=== PATIENT | female | born 1980 | race Caucasian/White ===

== ENCOUNTER 2019-07-07 07:02 | Emergency (ER) | payer MEDICAID, SELFPAY ==
[2019-07-07] VITALS (13 sets, daily range): BP systolic 78–108; BP diastolic 58–78; PULSE 89–123; RESP 16–36; TEMP 37–38.7; O2SAT 88–100; BMI 23.1
--- NOTE | 2019-07-07 07:17 | RAD_ITS ---
STUDY: X-RAY CHEST REASON FOR EXAM: Female, 38 years old. Cough. Weakness. TECHNIQUE: Single AP portable view of the chest. COMPARISON: None. FINDINGS: A right sided internal jugular venous catheter is in place with the tip in the right atrium. EKG electrodes are seen. The lungs are clear and expanded. There is no demonstrated pleural abnormality. Normal size heart. Normal mediastinum and rufino. Normal visualized pulmonary arteries. Normal visualized aortic arch and descending thoracic aorta. Normal visualized thoracic spine. Normal visualized ribs, clavicles, and shoulders. There is no demonstrated abnormality of the visualized soft tissue structures of the upper abdomen. RAD/Chest 1 View (Portable) IMPRESSION: Normal x-ray examination of the chest. Electronically Signed: Ashish Villatoro, at 9:13 EDT , Service support ,
--- NOTE | 2019-07-07 07:18 | EKG12_ITS ---
Test Reason : Blood Pressure : / mmHG Vent. Rate : 124 BPM Atrial Rate : 124 BPM P-R Int : 124 ms QRS Dur : 104 ms QT Int : 314 ms P-R-T Axes : 066 111 057 degrees QTc Int : 451 ms Sinus tachycardia Right axis deviation Poor R- wave Progression Abnormal ECG Confirmed by LUIS ANGEL RAMOS, TAMMY ([id number]), graphics editor MORGAN CASTAÑEDA ([id number]) on 07/09/2019 2:17:51 PM Referred By: PANDA Confirmed By:TAMMY PLASENCIA MD
--- NOTE | 2019-07-07 07:19 | CT_ITS ---
STUDY: CTA OF THE ABDOMINAL AORTA AND BILATERAL LOWER EXTREMITIES REASON FOR EXAM: Female, 38 years old. Leg numbness RADIATION DOSAGE (If Supplied By Facility): CTDIvol = ( 7.16 ) mGy, DLP = ( 1342.79 ) mGycm TECHNIQUE: Axial CT angiography multi-detector data acquisition was obtained from the to the following intravenous administration of 100CC IV Isovue 370. Axial images and MIP images were reconstructed from the axial data set. Post-processing of the angiographic images was performed, with multiplanar reformation and 3D reconstruction. Individualized dose optimization techniques were used for this CT. TECHNICAL QUALITY: Good COMPARISON: None. Descriptors of Narrowing: None (0%) Mild (< 50%) Moderate (50-70%) Severe (70-90%) Subtotal/Total Occlusion (90-100%) Non-Evaluable (technically non-diagnostic FINDINGS: Abdominal aorta: No demonstrated narrowing. Celiac and superior mesenteric arteries: No demonstrated narrowing. Inferior mesenteric artery: No demonstrated narrowing. Right renal artery(arteries): No demonstrated narrowing. Left renal artery(arteries): No demonstrated narrowing. Right common iliac artery: No demonstrated narrowing. Right external iliac artery: No demonstrated narrowing. Right internal iliac artery: No demonstrated narrowing. Left common iliac artery: No demonstrated narrowing. Left external iliac artery: No demonstrated narrowing. Left internal iliac artery: No demonstrated narrowing. RIGHT LOWER EXTREMITY Right common femoral artery: No demonstrated narrowing. Right profundus femoris: No demonstrated narrowing. Right superficial femoral: No demonstrated narrowing. Right popliteal artery: No demonstrated narrowing. Right tibioperoneal trunk: No demonstrated narrowing. Right anterior tibial artery: No demonstrated narrowing. Right posterior tibial artery: No demonstrated narrowing. Right peroneal artery: No demonstrated narrowing. LEFT LOWER EXTREMITY Left common femoral artery: No demonstrated narrowing. Left profundus femoris: No demonstrated narrowing. Left superficial femoral: No demonstrated narrowing. Left popliteal artery: No demonstrated narrowing. Left tibioperoneal trunk: No demonstrated narrowing. Left anterior tibial artery: No demonstrated narrowing. Left posterior tibial artery: No demonstrated narrowing. Left peroneal artery: No demonstrated narrowing. CT/CTA Abd w/Runoff W/WO Contrast IMPRESSION: Normal abdominal aorta and bilateral lower extremity run-off without a hemodynamically significant stenosis. Electronically Signed: Renaldo Abrams MD at 10:10 EDT Tel , Service support ,
[2019-07-07] MEDS: 0.9% Normal Saline 1,000 ML 1000 ML IV ×2 (08:20→09:21)
[2019-07-07 08:41] LABS: Absolute Lymphocyte Count 0.89 X10^3/uL (0.83-4.51); Absolute Neutrophil Count 18.2 X10^3/uL (2.0-7.7); Basophil# 0.07 X10^3/uL; Basophil% 0.3 % (0-1); Eosinophil# 0.05 X10^3/uL; Eosinophils% 0.2 % (0-5); Hematocrit 45.3 % (37-47); Hemoglobin 14.8 g/dL (12.0-15.0); Lymphocyte # 0.89 X10^3/ul (4.0); Lymphocyte % 4.3 % (19-41); Mean Corp Hgb Conc 32.7 g/dL (32-36); Mean Corpuscular Hgb 27.7 pg (27.0-32.0); Mean Corpuscular Volume 84.8 fL (81-99); Mean Platelet Vol. 10.1 fl (6.2-12.0); Monocyte# 1.56 X10^3/uL; Monocyte% 7.5 % (0-10); NRBC Flagged by Analyzer 0 % (0-5); Neutrophil # 18.18 X10^3/uL (2.7-7.7); Neutrophil % 86.8 % (47-70); POSITIVE DIFFERENTIAL YES; POSITIVE MORPHOLOGY YES; Platelet Count 244 K/mm3 (150-450); RBC Distribution Width CV 12.7 % (11.6-14.6); RBC Distribution Width SD 39.4 fl (35.1-43.9); Red Blood Count 5.34 M/mm3 (4.2-5.4); White Blood Count 20.9 K/mm3 (4.4-11.0)
--- NOTE | 2019-07-07 09:00 | ED.DCSUM_ITS ---
- ER Visit Summary Date of Service: 07/07/19 Chief Complaint: I cannot feel my legs History of Present Illness: The patient is a 38 F who states that she cannot feel her legs. This is been ongoing for 3 days. She also says that she feels like she has electrical currents going throughout her body. She also complains of whole body pain. She denies nausea or vomiting. Denies any fevers at home. 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 She says that she has laid around and has not moved in 3 days and has not urinated in 3 days. She is a history of kidney stones but no other medical problems. Physical Examination: Vital signs are reviewed and significant for heart rate of 128. HEENT exam reveals dry mucous membranes. Heart is tachycardic and regular rhythm without murmurs. Lungs have rhonchorous breath sounds bilaterally. Her abdomen is soft and nontender. Looking at her back she does have some pressure areas on her back. There are no open areas but there is some erythematous areas from where she has had some constant pressure. Her lower extremities have slightly unequal DP pulses in the feet. The left is palpable but the right was dopplerable. She has no rashes on her skin. She is alert and oriented x3 and answers all questions. She has diffuse overall weakness. She states that she cannot move her left or right leg. She has no muscular tenderness when you palpate her thighs or calves areas. There is no swelling of her lower extremities. Test Results: EKG is sinus tachycardia with a rate of 124. Nonspecific ST and T wave changes are noted, likely to chest x-ray reveals no acute on normalities. The right IJ central line is in correct position. White blood cell count 20.9, sodium 133, creatinine 1.38. AST and ALT are elevated at 290 and 138. Urinalysis does have a UTI with 25-50 white blood cells. Troponin and lactate normal. CK is 12,684. Alcohol level negative. Toxicology shows amphetamines and cannabis. ABG shows a pH of 7.40/26/91/16. CT abdomen with runoffs shows no critical stenosis. Emergency Department Course and Treatment: The patient is likely dehydrated, and peripheral IV access was unable to be obtained. Therefore the patient consented to a right IJ central line. Using sterile technique, ultrasound guidance and Seldinger technique a right IJ triple-lumen was placed by myself. Patient was hydrated with multiple liters of fluid. Given fentanyl for pain. She does have sepsis with a urinary tract infection. We be put the Charles catheter in over 1800 cc of urine returned. At this point the patient has rhabdomyolysis with a UTI and sepsis. With the lower extremity weakness and urinary retention, there is concern for a possible spinal etiology, i.e. spinal epidural abscess. I ordered MRI with contrast of the thoracic and lumbar spine. I discussed with hospitalist that the patient will definitely need to be admitted to the hospital. He agreed that MRIs are definitely warranted. We will pain these and patient will be admitted to the hospital Treatment Plan: [] Disposition: Admit Impression: Acute kidney injury Dehydration Rhabdomyolysis Sepsis UTI Lower extremity weakness with urinary retention, concern for spinal etiology Critical care time 60 minutes This note was generated with [employer] dictation software. It may contain incorrect words, spelling, and punctuation that were not noted in review of the chart prior to signing ED Disposition - Plan for ED Patient: Referrals: Care Physician,No Primary [Primary Care Provider] -
[2019-07-07 09:04] LABS: AST(SGOT) 298 U/L (15-37); Alanine Aminotransfer ALT/SGPT 138 U/L (13-56); Albumin, Serum 2.7 g/dL (3.2-5.0); Alkaline Phosphatase 158 U/L (45-117); Anion Gap 15 (5-15); BUN 38 mg/dL (7-18); BUN/Creat Ratio 27.5 RATIO (10-20); Bilirubin, Direct 0.34 mg/dL (0.00-0.30); Calcium,Total 8.3 mg/dL (8.5-10.1); Chloride 97 mmol/L (98-107); Creatinine, Serum 1.38 mg/dL (0.55-1.02); EST Glomerular Filtration Rate 46 mL/min (>60); Est Glom Filt Rate - Afr Amer 55 mL/min (>60); Estimated Creatinine Clearance 68.46 ml/min; Globulin 5.1 g/dL (2.2-4.2); Glucose 116 mg/dL (74-106); Lipase 69 U/L (73-393); Potassium 4.4 mmol/L (3.5-5.1); Protein, Total 7.8 g/dL (6.4-8.2); Sodium Level 133 mmol/L (136-145)
[2019-07-07 09:08] LABS: Lactic Acid 1.3 mmol/L (0.4-2.0)
[2019-07-07] MEDS: Ipratropium/Albuterol Sulfate 3 ML AMPUL.NEB INHALATION (09:18)
[2019-07-07 09:19] LABS: Differential Indicated SCAN CRITERIA MET
[2019-07-07 09:20] LABS: Differential Comment SCANNED
[2019-07-07 09:21] LABS: Internal QC Validated? YES +Cl - CLEAR BKGD; Pregnancy, Serum, hCG Quali. NEGATIVE Negative
[2019-07-07 09:22] LABS: CPK Total, Creatine Kinase 12684 U/L (26-192)
[2019-07-07 09:23] LABS: Alcohol, Blood (Medical)-Serum < 3.0 mg/dL
[2019-07-07 10:15] LABS: Base Excess -8 mmol/L (-2 to +2); Bicarbonate 16.7 mmol/L (22-26); Blood Gas Specimen Type ART; O2 Delivery Device Nasal Can; PO2 91 mmHG (75-100); SITE L Brachial; SO2 97 % (95-99); Time Given 1000; Total Carbon Dioxide 18 mmol/L; pCO2 26.6 mmHg (35-45); pH 7.41 (7.35-7.45)
[2019-07-07 11:29] LABS: Mucous, Urine 0 SEEN /hpf (<or=2+); Squamous Epithelial Cells - UA 0 SEEN /hpf (5-10)
[2019-07-07 11:34] LABS: Color, Urine Yellow (Yellow); Glucose, Dipstick Normal (Normal); Ketone-Dipstick Negative (Negative); Leukocyte Esterase-Dipstick 500 /ul (Negative); Nitrite-Dipstick Negative (Negative); Occult Blood-Urine 250 /ul (Negative); Protein-Dipstick 100 mg/dl (Negative); Specific Gravity, Urine 1.015 (1.002-1.030); Urine Bilirubin Dipstick Negative (Negative); Urine Clarity Cloudy (Clear); Urine Urobilinogen Normal (Normal); Urine pH 6.5 (5.0 - 8.0)
[2019-07-07 11:40] LABS: Bacteria 2+ /hpf (None Seen); Red Blood Cells-Urine 25-50 SEEN /hpf (0-5); White Blood Cells 25-50 SEEN /hpf (0-5)
[2019-07-07 11:47] LABS: Amphetamine Urine VISTA POSITIVE (<1000 ng/mL); Barbiturate Urine VISTA NEGATIVE (< 200 ng/mL); Benzodiazepine Urine VISTA NEGATIVE (< 200 ng/mL); Cocaine Urine VISTA NEGATIVE (< 300 ng/mL); Ecstacy Urine VISTA NEGATIVE (< 500 ng/mL); Methadone Urine VISTA NEGATIVE (< 300 ng/mL); PCP Urine VISTA NEGATIVE (< 25 ng/mL); THC Urine VISTA POSITIVE (< 50 ng/mL); Vista UDS pH Range 6
[2019-07-07] MEDS: fentaNYL 100 MCG/2 ML Ampul 50 MCG IV ×3 (11:56→20:57)
--- NOTE | 2019-07-07 12:04 | MRI_ITS ---
STUDY: MRI THORACIC SPINE WITH AND WITHOUT CONTRAST REASON FOR EXAM: Female, 38 years old. Abscess, unable to walk, intravenous drug user. TECHNIQUE: 15 IV Dotarem was administered for the contrast portion of the examination. COMPARISON: None. FINDINGS: Normal kyphosis of the thoracic spine. There is no substantial scoliosis. T1-2, T2-3, T3-4, T4-5, T5-6, T6-7, T7-8, T8-9, T9-10, T10-11, T11-12: At T6/T7 there is a small right paracentral disc protrusion which produces mild spinal stenosis with abutment of the right hemicord. At T7/T8 there is a tiny central disc protrusion which produces minimal spinal stenosis but no cord compression. At T8/T9 there is a small left paracentral disc protrusion which produces mild spinal stenosis with abutment of the spinal cord. At T9/T10 there is a small right paracentral disc protrusion which produces mild spinal stenosis with abutment of the right hemicord. At T10/T11 there is a small right paracentral disc protrusion which produces mild spinal stenosis with abutment of the right hemicord. Normal visualized thoracic cord. Normal conus medullaris that terminates at the . The soft tissue structures are unremarkable. There is no enhancing abnormality. MRI/Spine Thoracic W/WO Contrast IMPRESSION: Mild degenerative disc disease but no epidural abscess. Electronically Signed: Renaldo Abrams MD at 16:23 EDT Tel , Service support ,
--- NOTE | 2019-07-07 12:04 | MRI_ITS ---
STUDY: MRI LUMBAR SPINE WITH AND WITHOUT CONTRAST REASON FOR EXAM: Female, 38 years old. Leg weakness, abscess TECHNIQUE: Standardized fat and water weighted pulse sequences were obtained in the sagittal and axial planes. 15 IV Dotarem was administered for the contrast portion of the examination. COMPARISON: None FINDINGS: T12-L1: Normal endplates. Normal disc height, hydration and morphology. Normal bilateral facet joints. Normal central canal and bilateral lateral recesses. Normal bilateral intervertebral neural foramina. Normal lumbar lordosis. There is no substantial scoliosis. Normal conus medullaris that terminates at the L1. L1-2: Small central disc protrusion with annular tear produces minimal spinal stenosis and no neural foraminal stenosis. L2-3: Mild broad disc protrusion produces mild spinal stenosis but no neural foraminal stenosis. L3-4: Mild broad disc protrusion with a central annular tear produces mild spinal stenosis but no neural foraminal stenosis. L4-5: Mild bilateral facet hypertrophy with fluid in the facet joints consistent with instability mild ligament flavum hypertrophy. 2 mm retrolisthesis of L4 and L5 with a mild broad disc protrusion produces mild spinal stenosis with mild bilateral neural foraminal stenosis. L5-S1: Moderate sized central disc protrusion produces moderate spinal stenosis with moderate bilateral lateral recess stenosis with abutment of the S1 nerve roots bilaterally and moderate bilateral neural foraminal stenosis with abutment of the exiting L5 nerve roots bilaterally. Normal visualized sacral ala. Normal visualized paraspinous soft tissue structures. There is no demonstrated abnormal enhancement. MRI/Spine Lumbar W/WO Contrast IMPRESSION: Mild degenerative disc disease but no epidural abscess. Electronically Signed: Renaldo Abrams MD at 16:27 EDT Tel , Service support ,
--- NOTE | 2019-07-07 12:58 | CASEMGMT ---
RN CM Assessment Introduced role of RN CM to patient.? Patient is drowsy-falling asleep during the end of assessment questions, alert, oriented and able?to participate in RN CM Assessment. ?Care providers, pharmacy, and demographics verified. Presentation: Cannot feel her legs x3 days, Diffuse Body Pain Admit Dx: Rhabdomyolysis Re-Admit: No Barriers/Issues: Per ER MD note, Former Meth User, has not used x2yrs, Drug Tox this visit positive for Amphetamines and Cannabinoids. No Insurance or PCP. PCP: None, PCP list provided along with [facility] information. Specialists: None Preferred Pharmacy: [facility] [place], [place] Insurance: None Rx Benefit:?None ?LNOK: Mother- [facility] LW/HPOA: None, declines offered information Living Arrangements:?Lives alone in a 2 story home, bedroom on upper level of home, unsure of how many stairs. No steps to enter home. ADL?s: Independent with ambulation and ADLs Transportation: Patient states that she walks everywhere she goes. DME: None HHC: None SNF: None Goal: Home, denies any concerns, issues or questions with DC planning at this time. Aware CM remains available for any emerging needs. DC PLAN: Home. Cm to follow for emerging needs and more thorough assessment/needs. TADEO Manzano
[2019-07-07] MEDS: Ceftriaxone 1 GM/50 ML BAG IV (15:15)
[2019-07-07] MEDS: 0.9% Normal Saline 1,000 ML 999 ML IV (15:16)
--- NOTE | 2019-07-07 16:44 | PN_ITS ---
Subjective: 38-year-old female presented to the ER with 3 days of lower extremity paralysis. She states that it is bilateral. She has difficult to clarifying whether or not it slowly moved up or if it just presented 1 days total paralysis. She states that she was unable to move and has since developed some back pain and sores. She also states that today she started having bilateral upper extremity burning sensation. She denies any recent illnesses or sick contacts, though she did use a cold medicine on Sunday. She denies any recent IV drug use, she does have a history of meth use but she says she last used 2 years ago. Her drug screen did come back positive for amphetamines and marijuana. She had an MRI of her thoracic and lumbar spine both of which were negative for any epidural abscess and only showed mild degenerative disc disease. She presented to the ER she was found in rhabdo with CK greater than 12,000, as well as septic with a te mperature of 101.7 and a leukocytosis of 20,000. She was also tachycardic into the 110s to 120s and and had UA consistent with urinary tract infection. She was given 3 L of normal saline in the ER as well as given a dose of IV Rocephin. Vitals/I&O's: Vital Signs Temp Pulse Resp BP Pulse Ox 101.7 F H 117 H 24 H 79/58 L 95 07/07/19 15:25 07/07/19 15:25 07/07/19 15:25 07/07/19 15:25 07/07/19 15:25 Oxygen Flow Rate (L/min) 4 Oxygen Delivery Method Nasal Cannula Weight: 180 lb Body Mass Index (BMI) 23.1 Intake and Output for Last 24 Hours 07/05/19 07/06/19 07/07/19 23:59 23:59 23:59 Intake Total 1999 Balance 1999 General: Alert, Oriented x3, Cooperative, - - Significant burning pain in her right upper extremity HEENT: Atraumatic, PERRLA, EOMI, Normocephalic Oral: Dry Mucosa Neck: Supple, No JVD Lungs: Clear to auscultation, Normal air movement, No rhonchi, No wheeze, No rales Cardiovascular: Regular Rhythm, Normal S1, Normal S2, Tachycardic Abdomen: Soft, Non-Distended, No Hepato-splenomegaly, - - States she has no sensation in her abdomen or in her chest Extremities: No edema, Capillary Refill Less than 3 Seconds Skin: No rashes, No breakdown Neurological: - - She has come complete paralysis of her lower extremities, with no sensation and no patellar reflex bilaterally. Her upper extremity is 3-4 out of 5 in strength and she states that she has a burning sensation in both arms to the right appears to be worse than the left Psych/Mental Status: Anxious Laboratory Results 07/07/19 08:20: Lactic Acid 1.3 07/07/19 08:26: WBC 20.9 H, RBC 5.34, Hgb 14.8, Hct 45.3, MCV 84.8, MCH 27.7, MCHC 32.7, RDW Std Deviation 39.4, RDW Coeff of Domonique 12.7, Plt Count 244, MPV 10.1, Immature Gran % (Auto) 0.900, Neut % (Auto) 86.8 H, Lymph % (Auto) 4.3 L, Harvey % (Auto) 7.5, Eos % (Auto) 0.2, Baso % (Auto) 0.3, Absolute Neuts (auto) 18.2 H, Absolute Lymphs (auto) 0.89, Nucleated RBC % 0, Differential Comment SCANNED, Diff Path Review February07/07/19 08:26: Sodium 133 L, Potassium 4.4, Chloride 97 L, Carbon Dioxide 21.0, Anion Gap 15, BUN 38 H, Creatinine 1.38 H, Estim Creat Clear Calc 68.46, Est GFR (MDRD) Af Amer 55 L, Est GFR (MDRD) Non-Af 46 L, BUN/Creatinine Ratio 27.5 H, Glucose 116 H, Calcium 8.3 L, Total Bilirubin 0.80, Direct Bilirubin 0.34 H, AST 298 H, ALT 138 H, Alkaline Phosphatase 158 H, Troponin I < 0.015, Total Protein 7.8, Albumin 2.7 L, Globulin 5.1 H, Lipase 69 L 07/07/19 08:26: Ethyl Alcohol < 3.0 07/07/19 08:26: Serum , Qual NEGATIVE 07/07/19 08:26: Total Creatine Kinase 49951 H 07/07/19 10:09: Specimen Type ART, Sample Site L Brachial, pH 7.41, Bicarbonate Actual 16.7 L, POC Total CO2 18, Base Excess -8 L, O2 Saturation 97, ABG pCO2 26.6 L, ABG pO2 91, O2 Delivery Device Nasal Can, Liter Flow 5.0, Blood Gas Notified Whom ED MD, Blood Gas Notified Time 1000 07/07/19 11:20: Urine Color Yellow, Urine Clarity Cloudy, Urine pH 6.5, Ur Specific [place] 1.015, Urine Protein 100 H, Urine Glucose (UA) Normal, Urine Ketones Negative, Urine Occult Blood 250 H, Urine Nitrite Negative, Urine Bilirubin Negative, Urine Urobilinogen Normal, Ur Leukocyte Esterase 500 H, Urine RBC 25-50 SEEN, Urine WBC 25-50 SEEN, Ur Squamous Epith Cells 0 SEEN, Urine Bacteria 2+, Urine Mucus 0 SEEN 07/07/19 11:20: Urine Opiates Screen NEGATIVE, Urine Methadone Screen NEGATIVE, Ur Barbiturates Screen NEGATIVE, Ur Phencyclidine Scrn NEGATIVE, Ur Amphetamines Screen POSITIVE H, U Methamphetamin-MDMA NEGATIVE, U Benzodiazepines Scrn NEGATIVE, Urine Cocaine Screen NEGATIVE, U Cannabinoids Screen POSITIVE H, Ur Drug Screen Comment Medical Necessity - Tobacco Use Smoking Status: Current every day smoker Tobacco Use: Cigarettes Assessment/Plan 1. Possible ascending paralysis with bilateral upper extremity burning pain and loss of sensation in her legs abdomen and two thirds of her chest/urinary retention/low rectal tone -There is significant concern for possibly Guillain Ott? or transverse myelitis -Discussed the case with the ED physician who also performed a separate evaluation and felt that there is also areflexia and no mobility in the lower extremities. She agreed with transferring the patient to a higher level of care. -Also the ER did a CTA abdomen pelvis with runoff due to poor peripheral pulses initially, this is likely secondary to her episodic hypotension, and the distal vasculature in her legs bilaterally were patent 2. Sepsis secondary to UTI -Lactic acid was normal, she did receive 3 L of normal saline -She received a dose of Rocephin 3. Acute hypoxic respiratory failure -Likely secondary to the sepsis and possibly the paralysis -Continue with nasal cannula at 4 L for oxygen sats of 96% Code Visit Inpatient E&M: [id number] [facility] Hosp L3
--- NOTE | 2019-07-07 16:54 | MRI_ITS ---
STUDY: MRI CERVICAL SPINE WITHOUT CONTRAST REASON FOR EXAM: Female, 38 years old. Arm weakness and neck pain TECHNIQUE: Standardized fat and water weighted pulse sequences were obtained in the sagittal and axial planes. COMPARISON: None FINDINGS: Normal foramen magnum and brainstem-cervical cord junction. Normal craniovertebral junction. Normal anterior atlantoaxial articulation. Normal odontoid process. A round T2 hyperintense lesion is present in the pituitary gland measuring 7 mm. This could represent a microadenoma. Prevertebral edema is noted extending from the C3 level to the C6 level. A ventral epidural lesion/collection is noted extending from the C4-5 level to the T1-2 level. It is faintly T1 and T2 hyperintense. It is noted that recent post contrast MRIs were obtained and the perceived T1 hyperintensity could actually represent some mild residual enhancement. The lesion is associated with severe central canal stenosis at the C5-6 and C6-7 levels, with associated severe cord compression and distortion. It has a maximum anteroposterior measurement of 6 mm at the C6-7 level. Overall, findings are concerning for epidural abscess or hematoma. 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 Secondary changes of osteomyelitis are not visible on this limited noncontrast study. At C5-6, disc osteophyte complex is present with moderate to severe central canal stenosis and severe right foraminal stenosis, with mass effect on the right C5 nerve root. MRI/Spine Cervical (Routine) IMPRESSION: An indeterminate ventral epidural lesion is noted extending from the C4-5 level to the T1-2 level. Differential includes both epidural abscess and epidural hematoma. This lesion is associated with severe central canal stenosis at C5-6 and C6-7. At those levels, there is significant cord compression. 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 Overall, neurosurgery consultation should be obtained at this time. A round T2 hyperintense lesion is present in the pituitary gland measuring 7 mm. This could represent a microadenoma. I discussed these critical results with Dr. Rodriguez by telephone at 7:05 PM EST on 07/07/2019. N.B. : The above information has been verbally conveyed by Sly Goldberg MD to Dr. Jennifer MD, on 07/07/2019 19:07:26 (ET). Electronically Signed: Sly Goldberg MD at 19:08 EDT Tel , Service support ,
--- NOTE | 2019-07-07 20:09 | ED.RN ---
DR WHYTE - NEUROSURGEON, NEURO ICU [id number], NUMBER FOR REPORT [phone]
--- NOTE | 2019-07-08 06:23 | ED.RN ---
PRELIMINARY BLOOD CULTURE RESULTS FAXED TO [facility] ICU
[2019-07-08 13:04] LABS: Pathologist Review Reviewed
== END 2019-07-07 21:09 | disposition short-term general hospital (02) ==
PROVIDERS: Emergency Provider Emergency Medicine; Referring Provider Family Medicine
DX: N17.9 Acute kidney failure, unspecified (principal); E86.0 Dehydration; M62.82 Rhabdomyolysis; A41.9 Sepsis, unspecified organism; N39.0 Urinary tract infection, site not specified; R29.898 Other symptoms and signs involving the musculoskeletal system; R33.9 Retention of urine, unspecified; G95.89 Other specified diseases of spinal cord; M48.02 Spinal stenosis, cervical region; M51.36 Other intervertebral disc degeneration, lumbar region; M51.34 Other intervertebral disc degeneration, thoracic region; Z87.442 Personal history of urinary calculi; F17.210 Nicotine dependence, cigarettes, uncomplicated
CPT/HCPCS: 36600; 51702; 71045; 72141; 72157; 72158; 75635; 80048; 80076; 80307; 80320; 81001; 82550; 82803; 83605; 83690; 84484; 84703; 85025; 87040; 87149; 87186; 93005; 94640; 96361; 96365; 96367; 96368; 96374; 96376; 99285; A9575; J7030; J7040; Q9967; A4216; G0480

== ENCOUNTER 2019-10-19 02:29 | Emergency (ER) | payer MEDICAID, SELFPAY ==
[2019-07-07 07:03] VITALS: BMI 23.1
[2019-10-19 02:31] VITALS: BP 132/88; PULSE 94; RESP 18; TEMP 37.4; O2SAT 99; BMI 26.7
[2019-10-19 02:34] VITALS: BP 132/88; PULSE 92; RESP 18; TEMP 37.4; O2SAT 99
--- NOTE | 2019-10-19 03:00 | ED.VIS.GEN ---
History of Present Illness Chief Complaint: Complaint Narrative: Patient is a 39-year-old female who presents with hematuria. She has a history of epidural abscess and paraplegia. She has an indwelling Charles catheter. About 24 hours ago she noted blood in her Charles bag. She has changed her Charles about 4 times since then and continues to have grossly bloody urine. She reports chills and sweats but no fevers. No vomiting. Past Medical History - Allergies and Home Meds Allergies/Adverse Reactions: Allergies No Known Allergies Allergy (Verified 10/19/19 02:30) Primary Care Physician: Qamar Zimmer MD [Primary Care Provider] - Past Medical History: - - History of epidural abscess, paraplegia Surgical History: cholecystectomy, , left ankle surgery secondary to trauma Smoking Status: Current every day smoker Review of Systems All systems negative except as indicated General: Reports: Chills, Sweats. Denies: Fever Cardiovascular: Denies: Chest pain Respiratory: Denies: Dyspnea Gastrointestinal: Denies: Vomiting, Diarrhea Genitourinary: Reports: Hematuria Skin: Denies: Rash Neurological: Denies: Headache Allergy: Denies: Uticaria Physical Exam Vital Signs/Narrative: Vital Signs Temp Pulse Resp BP Pulse Ox 10/19/19 02:34 99.3 F H 92 18 132/88 H 99 10/19/19 02:31 99.3 F H 94 18 132/88 H 99 Inital Vital Signs reviewed: Yes General: Well nourished Head: Normocephalic Eyes: EOMI ENT: Moist mucous membranes Neck: Supple Cardiovascular: Regular rate, Regular rhythm Respiratory: No distress, CTA bilaterally Abdomen: Soft, Nondistended : - - Normal exam, no vaginal bleeding Skin: Normal color Neurological: Alert, - - Paraplegia Psychological: Normal affect Diagnostic/Tx/Re-eval - Medical Decision Making Patient serum laboratory studies are unremarkable. Urinalysis shows blood as well as mild pyuria not clearly consistent with cystitis, we will culture urine. Her Charles was irrigated and did clear. Therefore I do feel she is safe for discharge. We will refer to urology for outpatient follow-up and patient was discharged. ED Disposition - Plan for ED Patient: Disposition: Home or Assisted Living Diagnosis: Hematuria Instructions: Hematuria Referrals: Qamar Zimmer MD [Primary Care Provider] - Mal Méndez MD [STAFF PHYSICIAN] -
[2019-10-19 03:47] LABS: Mucous, Urine 0 SEEN /hpf (<or=2+); Squamous Epithelial Cells - UA 0 SEEN /hpf (5-10)
[2019-10-19 03:52] LABS: Absolute Lymphocyte Count 2.23 X10^3/uL (0.83-4.51); Absolute Neutrophil Count 4.8 X10^3/uL (2.0-7.7); Basophil# 0.04 X10^3/uL; Basophil% 0.5 % (0-1); Eosinophil# 0.15 X10^3/uL; Eosinophils% 1.9 % (0-5); Hematocrit 34.1 % (37-47); Hemoglobin 10.6 g/dL (12.0-15.0); Lymphocyte # 2.23 X10^3/ul (4.0); Lymphocyte % 27.9 % (19-41); Mean Corp Hgb Conc 31.1 g/dL (32-36); Mean Corpuscular Hgb 25.2 pg (27.0-32.0); Mean Platelet Vol. 9.8 fl (6.2-12.0); Monocyte# 0.73 X10^3/uL; Monocyte% 9.1 % (0-10); NRBC Flagged by Analyzer 0 % (0-5); Neutrophil # 4.82 X10^3/uL (2.7-7.7); Neutrophil % 60.3 % (47-70); Platelet Count 268 K/mm3 (150-450); RBC Distribution Width CV 13.6 % (11.6-14.6); RBC Distribution Width SD 39.9 fl (35.1-43.9); Red Blood Count 4.21 M/mm3 (4.2-5.4)
[2019-10-19 03:56] LABS: Color, Urine Red (Yellow); Glucose, Dipstick Normal (Normal); Ketone-Dipstick 5 mg/dl (Negative); Leukocyte Esterase-Dipstick 100 /ul (Negative); Nitrite-Dipstick Negative (Negative); Occult Blood-Urine 250 /ul (Negative); Protein-Dipstick 500 mg/dl (Negative); Specific Gravity, Urine 1.015 (1.002-1.030); Urine Bilirubin Dipstick Negative (Negative); Urine Clarity Turbid (Clear); Urine Urobilinogen Normal (Normal)
[2019-10-19 03:58] LABS: Prothrombin Time (Protime)PT. 13.2 SECONDS (11.7-14.9)
[2019-10-19 04:02] LABS: Bacteria RARE /hpf (None Seen); Red Blood Cells-Urine 50-100 SEEN /hpf (0-5); White Blood Cells 5-10 SEEN /hpf (0-5)
[2019-10-19 04:05] LABS: Anion Gap 4 (5-15); BUN 11 mg/dL (7-18); BUN/Creat Ratio 26.1 RATIO (10-20); Calcium,Total 8.4 mg/dL (8.5-10.1); Chloride 110 mmol/L (98-107); Creatinine, Serum 0.42 mg/dL (0.55-1.02); EST Glomerular Filtration Rate 178 mL/min (>60); Est Glom Filt Rate - Afr Amer 216 mL/min (>60); Estimated Creatinine Clearance 216.18 ml/min; Glucose 107 mg/dL (74-106); Potassium 3.5 mmol/L (3.5-5.1); Sodium Level 141 mmol/L (136-145)
[2019-10-19 04:54] VITALS: BP 126/91; PULSE 90; RESP 16; O2SAT 98
== END 2019-10-19 05:30 | disposition home or self-care (01) ==
PROVIDERS: Emergency Provider Emergency Medicine; Family Provider Family Medicine; PCP Family Medicine
DX: R31.0 Gross hematuria (principal); G82.20 Paraplegia, unspecified; F17.200 Nicotine dependence, unspecified, uncomplicated; Z79.82 Long term (current) use of aspirin; Z79.899 Other long term (current) drug therapy; Z90.49 Acquired absence of other specified parts of digestive tract
CPT/HCPCS: 80048; 81001; 85025; 85610; 87077; 87086; 87088; 87186; 99285; A4216

== ENCOUNTER 2019-11-24 18:36 | Inpatient (IN) | payer MEDICAID, SELFPAY ==
[2019-11-24] VITALS (10 sets, daily range): BP systolic 90–127; BP diastolic 24–106; PULSE 84–121; RESP 18–34; TEMP 36.8–37.6; O2SAT 96–98; BMI 25.1
--- NOTE | 2019-11-24 19:26 | ED.RN ---
PT INCONTINENT OF STOOL, PT CLEANED WITH BATH WIPES, ADULT BRIEF CHANGED, PT BOTTOM REDDENED AROUND COCCYX AREA. PT REPORTS TENDERNESS, NO OPEN WOUNDS NOTED. DR. QUIÑONES AT BEDSIDE TO OBSERVE, BOTTOM. PT WITH BRUISES ON BACK, REPORTS FALLING 2 WEEKS AGO OUT OF HER WHEEL CHAIR. EMOTIONAL SUPPORT PROVIDED AND WATER GIVEN. PT PLACED ON SCREEN PRINTING PASTER. AWAITING BLOOD WORK RESULTS.
[2019-11-24 19:44] LABS: Absolute Lymphocyte Count 2.66 X10^3/uL (0.83-4.51); Absolute Neutrophil Count 13.2 X10^3/uL (2.0-7.7); Basophil# 0.08 X10^3/uL; Basophil% 0.5 % (0-1); Eosinophil# 0.35 X10^3/uL; Hematocrit 36.3 % (37-47); Hemoglobin 11.6 g/dL (12.0-15.0); Lymphocyte # 2.66 X10^3/ul (4.0); Lymphocyte % 15.2 % (19-41); Mean Corpuscular Hgb 25.2 pg (27.0-32.0); Mean Corpuscular Volume 78.7 fL (81-99); Mean Platelet Vol. 10.4 fl (6.2-12.0); Monocyte# 1.16 X10^3/uL; Monocyte% 6.6 % (0-10); NRBC Flagged by Analyzer 0 % (0-5); Neutrophil # 13.21 X10^3/uL (2.7-7.7); Neutrophil % 75.3 % (47-70); Platelet Count 339 K/mm3 (150-450); RBC Distribution Width CV 13.8 % (11.6-14.6); RBC Distribution Width SD 39.1 fl (35.1-43.9); Red Blood Count 4.61 M/mm3 (4.2-5.4); White Blood Count 17.5 K/mm3 (4.4-11.0)
[2019-11-24] MEDS: 0.9% Normal Saline 1,000 ML 1000 ML IV ×2 (19:46→20:29)
--- NOTE | 2019-11-24 19:53 | RAD_ITS ---
STUDY: X-RAY CHEST REASON FOR EXAM: Female, 39 years old. Sepsis TECHNIQUE: 2 frontal images of the chest were obtained. COMPARISON: July 07, 2019 FINDINGS: There is no new focal consolidation. Normal size heart. Normal mediastinum and rufino. Normal visualized pulmonary arteries. Normal visualized aortic arch and descending thoracic aorta. Normal visualized thoracic spine. Normal visualized ribs, clavicles, and shoulders. There are postsurgical changes of the lower cervical spine. There is no demonstrated abnormality of the visualized soft tissue structures of the upper abdomen. RAD/Chest 1 View (Portable) IMPRESSION: No acute cardiopulmonary process. Electronically Signed: Pat Hernandez MD at 20:09 EST Tel , Service support ,
[2019-11-24] MEDS: LORazepam 2 MG/ML Syringe 1 MG IV (20:04)
[2019-11-24 20:09] LABS: AST(SGOT) 14 U/L (15-37); Alanine Aminotransfer ALT/SGPT 29 U/L (13-56); Albumin, Serum 3.6 g/dL (3.2-5.0); Alkaline Phosphatase 159 U/L (45-117); Anion Gap 5 (5-15); BUN 17 mg/dL (7-18); Calcium,Total 8.9 mg/dL (8.5-10.1); Chloride 108 mmol/L (98-107); Creatinine, Serum 0.68 mg/dL (0.55-1.02); EST Glomerular Filtration Rate 103 mL/min (>60); Est Glom Filt Rate - Afr Amer 124 mL/min (>60); Globulin 3.7 g/dL (2.2-4.2); Glucose 91 mg/dL (74-106); Potassium 3.1 mmol/L (3.5-5.1); Protein, Total 7.3 g/dL (6.4-8.2); Sodium Level 138 mmol/L (136-145)
[2019-11-24 20:10] LABS: International Normalized Ratio 1.1; Partial Thromboplast Time 26.6 Seconds (24.1-36.2); Prothrombin Time (Protime)PT. 14.4 SECONDS (11.7-14.9)
[2019-11-24 20:11] LABS: Lactic Acid 1.1 mmol/L (0.4-1.9)
--- NOTE | 2019-11-24 20:27 | ED.DCSUM_ITS ---
- ER Visit Summary Date of Service: 11/24/19 Chief Complaint: Suprapubic catheter site infected History of Present Illness: The patient is a [address] Zimmer. 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 She reports that 6 days ago she had a suprapubic catheter placed at [facility] by Dr. Terrell. At that time she was placed on Bactrim. She is still on amoxicillin for her epidural abscess. Patient reports that today there was a swollen area surrounding suprapubic catheter popped. She has had subjective fever. She denies any other complaints. Physical Examination: Vitals: 99.2, 90/24, 121, 22, 90% on room air which is not hypoxic. General: Well-nourished and well-developed. Head: Normocephalic atraumatic. Neck: Supple, no lymphadenopathy. No JVD. Nontender. Cardiovascular: Regular rate and rhythm. No murmurs. Respiratory: No respiratory distress. Clear to auscultation bilaterally. Abdominal: Soft, nontender, nondistended, normal bowel sounds. No guarding, rebound, or peritoneal signs. Suprapubic site has proximal 1.5 cm indurated area without fluctuance. There is minimal erythema. Back: Nontender. Extremities: Nontender, no edema. Skin: She does have erythema and excoriation to the medial thighs bilaterally left greater than right. There is also erythema over her perineum and in the sacrum consistent with pressure from her wheelchair in bed with her paraplegia. There is no ulcer. Neurologic: Alert and oriented ?3. Cranial nerves II through XII are intact. Normal strength and sensation. Psych: Normal affect. Test Results: CBC shows white count of 17.5 with an H&H 11.6 36.3, segmented for 75 monocytes 15. Chem-7 shows a potassium 3.1 chloride 108. LFTs showed alk phos 159, AST of 14. Coags are normal. Lactic acid is 1.1. Urinalysis is negative. Clinical Impression(s) from Imaging Studies Chest X-Ray 11/24/19 19:53 IMPRESSION: No acute cardiopulmonary process. Electronically Signed: Pat Hernandez MD at 20:09 EST Tel , Service support , Abdomen/Pelvis CT 11/24/19 20:28 IMPRESSION: Mild subcutaneous stranding and skin thickening adjacent to suprapubic catheter extending into the urinary bladder, suggestive of underlying cellulitis. No abscess is visualized. Moderate amount of stool throughout the colon. Indeterminate 9.6 mm nodule within the right lower lobe, recommend a follow-up chest CT in 3 months. Electronically Signed: Pat Hernandez MD at 21:14 EST Tel , Service support , Emergency Department Course and Treatment: Patient reports that she was very anxious. She was given a milligram of Ativan IV and is resting more comfortably. The patient was given vancomycin IV. Treatment Plan: Patient has inconsistent history as far as who she is staying with. She clearly cannot take care of herself at home. She is given 3 different answers about who she is living with. She reports that she does have home health twice a week. Clinically she has cellulitis with failed outpatient treatment and would benefit from admission for IV antibiotics and social work consult to make better arrangements at home. Patient was discussed with Dr. Dill and will be admitted for further evaluation and treatment. Disposition: Admitted in improved condition. Impression: 1. Butch cellulitis with failed outpatient treatment. 2. 6 days status post prepubic catheter placement. This note was generated with Bev[employer]ation software. It may contain incorrect words, spelling, and punctuation that were not noted in review of the chart prior to signing ED Disposition - Plan for ED Patient: Referrals: Qamar Zimmer MD [Primary Care Provider] -
--- NOTE | 2019-11-24 20:28 | CT_ITS ---
STUDY: CT ABDOMEN AND PELVIS WITHOUT CONTRAST REASON FOR EXAM: Female, 39 years old. ABSCESS AROUND CATHETER. Hx of HLD, kidney stones and prior cholecystectomy RADIATION DOSAGE (If Supplied By Facility): CTDIvol = ( 11.94 ) mGy, DLP = ( 1262.60 ) mGycm TECHNIQUE: Transaxial images were obtained from the dome of the diaphragm to the symphysis pubis without oral contrast, and without intravenous contrast. Sagittal and coronal images were reconstructed. Individualized dose optimization techniques were used for this CT. COMPARISON: July 03, 2012 FINDINGS: There is a 9.6 mm subpleural nodule within the right lower lobe. The visualized portions of the heart are within normal limits. The lack of intravenous contrast limits evaluation of solid organs. Normal liver. There are surgical clips in the gallbladder fossa consistent with a prior cholecystectomy. Normal spleen. Normal pancreas. Normal bilateral adrenal glands. Normal right kidney. Normal left kidney. Normal visualized stomach. Normal small intestine. There is a moderate amount of stool throughout the colon. The appendix is visualized and appears normal. Normal abdominal aorta. Normal inferior vena cava. Normal retroperitoneum. There is a suprapubic bladder catheter in place. There is subcutaneous stranding adjacent to the catheter as well as skin thickening. No discrete fluid collection is visualized. There are foci of air within the urinary bladder likely secondary to the catheter. There are prominent nonpathologically enlarged inguinal lymph nodes. There are diffuse degenerative changes of the visualized lumbar spine. CT/Abdomen/Pelvis without Cont IMPRESSION: Mild subcutaneous stranding and skin thickening adjacent to suprapubic catheter extending into the urinary bladder, suggestive of underlying cellulitis. No abscess is visualized. Moderate amount of stool throughout the colon. Indeterminate 9.6 mm nodule within the right lower lobe, recommend a follow-up chest CT in 3 months. Electronically Signed: Pat Hernandez MD at 21:14 EST Tel , Service support ,
[2019-11-24 20:38] LABS: Mucous, Urine 0 SEEN /hpf (<or=2+)
[2019-11-24 20:53] LABS: Color, Urine Yellow (Yellow); Glucose, Dipstick Normal (Normal); Ketone-Dipstick 5 mg/dl (Negative); Leukocyte Esterase-Dipstick 25 /ul (Negative); Nitrite-Dipstick Negative (Negative); Occult Blood-Urine 250 /ul (Negative); Protein-Dipstick 100 mg/dl (Negative); Specific Gravity, Urine 1.025 (1.002-1.030); Urine Clarity Sl. Cloudy (Clear); Urine Urobilinogen 1 mg/dl (Normal)
[2019-11-24 21:00] LABS: Urine Bilirubin Dipstick 1 mg/dL (Negative)
[2019-11-24 21:03] LABS: Calcium Oxalate Crystals Ur 1+ /hpf (<or=2+)
[2019-11-24 21:04] LABS: Bacteria RARE /hpf (None Seen); Red Blood Cells-Urine 25-50 SEEN /hpf (0-5); Squamous Epithelial Cells - UA 0-5 SEEN /hpf (5-10); White Blood Cells 0-5 SEEN /hpf (0-5)
--- NOTE | 2019-11-24 23:33 | HP.PCM_ITS ---
Problem List (1) Cellulitis Status: Acute History of Present Illness Date of Admission: 11/24/19 Chief Complaint: swelling around suprapubic catheter that popped. The patient is a 39 year old F with a significant history of paraplegia who presented because of a swelling around suprapubic catheter that popped. Reportedly she had a suprapubic catheter placed 6 days ago at outside hospital [facility] by Dr. Terrell. Patient was started on amoxicillin and Bactrim outpatient. At the emergency department patient was found to have leukocytosis. Abdomen and pelvis CT showed mild stranding adjacent to the bladder consistent with cellulitis without any abscess. Patient was considered as failing outpatient treatment for cellulitis. She was given vancomycin and admitted. Also important in the decision to admit the patient was that she is a paraplegic and it appeared that she does not have adequate home support. Of note she has home health that sees her about 2 times in a week. She was giving conflicting reports of who she lives at home with. Further patient was given conflicting report of why she came to emergency department. Although she reported the history above at the emergency department; she kept changing her story stating that she came in because of a headache; and later she said she came in because of spasms. 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 Past Medical History Past Medical History (Chronic Problems): Chronic Problems history of left lower tooth abcess (Chronic) Psoriasis (Chronic) Diarrhea (Chronic) Nausea and vomiting (Chronic) Esophageal reflux (Chronic) Allergies No Known Allergies Allergy (Verified 11/24/19 18:46) Home Medications: Ambulatory Orders Medication Instructions Recorded Amoxicillin [Amoxil] 1 tab PO TID 10/19/19 Aspirin [Aspirin, Baby] 1 tab PO DAILY 10/19/19 Bacillus/Protease/Amylas/Lipas 1 cap PO DAILY 10/19/19 [Digest Adv Intensive Bowel Cap] Baclofen 1 tab PO 4X/DAY 10/19/19 Duloxetine HCl 2 tab PO DAILY 10/19/19 Fludrocortisone Acetate [Florinef] 1 tab PO DAILY 10/19/19 Gabapentin 1 tab PO TID 10/19/19 Melatonin 1 tab PO QHS 10/19/19 Midodrine HCl 1 tab PO TID 10/19/19 Oxycodone HCl/Acetaminophen 1 ea PO Q4H PRN PRN 10/19/19 [Oxycodone-Acetaminophen 5-325] Oxybutynin [Ditropan] 5 mg PO DAILY 11/24/19 Sulfamethoxazole/Trimethoprim 1 tab PO BID 11/24/19 [Sulfamethoxazole-Tmp Ds Tablet] Surgical History: - - suprapubic catheter placement Lives: - - unclear who she lives with. Patient keeps changing her story. Smoking Status: Current every day smoker Tobacco Use: Cigarettes - *Family History Maternal History Items: - - She reports that her mother has MS. Paternal History Items: - - Patient did not provide paternal medical history after several attempts. Review of Systems Constitutional: Denies: Chills, Fever, Weight Change HEENT: Reports: Head Aches. Denies: Sinus Congestion, Sinus Drainage Cardiovascular: Denies: Chest Pain, Palpitations Respiratory: Denies: Cough, Shortness of breath at rest, Sputum production Gastrointestinal: Denies: Abdominal Pain, Nausea, Vomiting Genitourinary: Denies: Dysuria Musculoskeletal: Denies: Joint Pain, Joint Tenderness Skin: Reports: Skin Changes - around suprapubic catheter. Denies: Rash, Wounds Neurological: Denies: Numbness, Tingling, Focal weakness Psychiatric: Denies: Homicidal Ideations, Suicidal Ideations Hematologic/ Lymphatic: Denies: Easy Bruising, Easy Bleeding VTE Information - Inpt Only VTE Present on Admission: No VTE Mechan Device Prophylaxis: None VTE Pharm Prophylaxis ordered?: Yes Patient Problems: Active and Suspected Problems Cellulitis (Acute) - Physical Exam Vitals/I&O's: Vital Signs Temp Pulse Resp BP Pulse Ox 98.8 F 84 18 124/78 H 96 11/24/19 23:07 11/24/19 23:07 11/24/19 23:07 11/24/19 23:07 11/24/19 23:07 Oxygen Delivery Method Room Air Weight: 79.379 kg Body Mass Index (BMI) 25.1 Intake and Output for Last 24 Hours 11/22/19 11/23/19 11/24/19 23:59 23:59 23:59 Intake Total 716.67 / 716.67 Balance 716.67 / 716.67 General: Alert, Oriented x3 HEENT: Atraumatic, PERRLA, EOMI, Normocephalic Neck: Supple, No JVD, Negative Carotid Bruits Lungs: Clear to auscultation, Normal air movement, Tachypneic Cardiovascular: Normal S1, Normal S2, No murmurs, Tachycardic Abdomen: Bowel Sounds Present, Soft, Non Tender Extremities: No edema, Capillary Refill Less than 3 Seconds Skin: - - redness on coccygeal area. External hemorrhoids. Suprapubic area wi th mild redness and induration around indwelling catheter. Musculoskeletal: No Tenderness to Palpation of Joints or Extremities Neurological: Cranial nerves II-XII grossly intact Psych/Mental Status: Irrational Behavior, - Laboratory Results 11/24/19 19:29: WBC 17.5 H, RBC 4.61, Hgb 11.6 L, Hct 36.3 L, MCV 78.7 L, MCH 25.2 L, MCHC 32.0, RDW Std Deviation 39.1, RDW Coeff of Domonique 13.8, Plt Count 339, MPV 10.4, Immature Gran % (Auto) 0.400, Neut % (Auto) 75.3 H, Lymph % (Auto) 15.2 L, [place] % (Auto) 6.6, Eos % (Auto) 2.0, Baso % (Auto) 0.5, Absolute Neuts (auto) 13.2 H, Absolute Lymphs (auto) 2.66, Nucleated RBC % 0 11/24/19 19:29: Sodium 138, Potassium 3.1 L, Chloride 108 H, Carbon Dioxide 25.0, Anion Gap 5, BUN 17, Creatinine 0.68, Estim Creat Clear Calc 121.30, Est GFR (MDRD) Af Amer 124, Est GFR (MDRD) Non-Af 103, BUN/Creatinine Ratio 25.0 H, Glucose 91, Calcium 8.9, Total Bilirubin 0.30, AST 14 L, ALT 29, Alkaline Phosphatase 159 H, Total Protein 7.3, Albumin 3.6, Globulin 3.7, Albumin/Globulin Ratio 1.0 11/24/19 19:29: Lactic Acid 1.1 11/24/19 19:29: PT 14.4, INR 1.1, APTT 26.6 11/24/19 20:30: Urine Color Yellow, Urine Clarity Sl. Cloudy, Urine pH 6.0, Ur Specific [place] 1.025, Urine Protein 100 H, Urine Glucose (UA) Normal, Urine Ketones 5 H, Urine Occult Blood 250 H, Urine Nitrite Negative, Urine Bilirubin 1 H, Urine Urobilinogen 1 H, Ur Leukocyte Esterase 25 H, Urine RBC 25-50 SEEN, Urine WBC 0-5 SEEN, Ur Squamous Epith Cells 0-5 SEEN, Calcium Oxalate Crystal 1+, Urine Bacteria RARE, Urine Mucus 0 SEEN Current Medications Vancomycin HCl 1,250 mg/ (Sodium Chloride) 275 mls @ 250 mls/hr IV X1 ONE Stop: 11/25/19 00:40 Assessment/Plan All Active Problems Cellulitis (Acute) The patient is a 39 year old F with a significant history of paraplegia who presented because of a swelling around suprapubic catheter that popped who was on outpatient treatment after suprapubic catheter was placed and found to have cellulitis around the supra-pubic catheter; and also with leukocytosis and tachypnea consistent with sepsis secondary to cellulitis Sepsis Heart rate more than 90; respiratory rate more than 20. CT evidence of mild stranding around suprapubic catheter extending into the urinary bladder. Her suprapubic site is non-toxic. However because of leukocytosis of 17.5; tachycardia and tachypnea patient has been considered as failing outpatient treatment. Patient was on Bactrim and amoxicillin outpatient. At the emergency part the patient was given vancomycin. Will start patient on Zosyn and clindamycin. Trend CBC and BMP. Lactic acid was unremarkable. Follow blood cultures. Her sepsis could be from cellulitis although her cellulitic symptoms is not impressive. Also her urine is abnormal. Abnormal urinalysis could be due to colonization or urinary tract infection. Case management for disposition. PT and OT consult. Hypokalemia On presentation potassium was 3.1. Replace. Trend BMP. Lung nodule. Abdomen and pelvis CT found indeterminate 9.6 mm nodule within the right lower lobe for which follow-up CT was recommended. Of note patient is a smoker. Elevated alkaline phosphatase Chronic. Stage 1 Pressure ulcer to coccyx Calmoseptine ordered. DVT prophylaxis Subcutaneous Lovenox. Disposition: Case management was consulted from the emergency department as patient will be unable to take care of herself at home. Code Visit Inpatient E&M: 38651 Init Hosp L3
[2019-11-25] VITALS (14 sets, daily range): BP systolic 94–111; BP diastolic 62–76; PULSE 66–87; RESP 12–18; TEMP 36.3–36.8; O2SAT 95–99; BMI 23.3; BMI 23.4
--- NOTE | 2019-11-25 | ED.RN ---
pt rolled to right side, and propped with pillows behind back and bottom, towel rolled between knees.
[2019-11-25] MEDS: Potassium Chloride 10mEq/100mL 10 MEQ/100 ML IV.SOLN. 100 MEQ IV BOLUS ×2 (01:56→03:03)
[2019-11-25] MEDS: oxyCODONE 5 MG Tablet PO ×5 (02:27→21:44)
--- NOTE | 2019-11-25 04:21 | NURSING ---
pt screaming from room. pt is screaming/crying about burning in iv and threatening to pull out own iv. screaming at this rn to stop the potassium or i'm taking it out discussed starting a second iv site with pt to allow better dilution setup because antibiotics are also running at this time. pt yelling and crying says i will not let you put in another one! this rn stopped the potassium and flushed the iv line. physician notified
[2019-11-25] MEDS: Midodrine HCl 5 MG Tablet 10 MG PO ×3 (05:16→21:21)
[2019-11-25] MEDS: Gabapentin 800 MG Tablet PO ×3 (05:16→21:21)
[2019-11-25 06:51] LABS: Absolute Neutrophil Count 7.8 X10^3/uL (2.0-7.7); Basophil# 0.06 X10^3/uL; Basophil% 0.5 % (0-1); Eosinophil# 0.41 X10^3/uL; Eosinophils% 3.6 % (0-5); Hematocrit 34.3 % (37-47); Hemoglobin 10.4 g/dL (12.0-15.0); Lymphocyte % 20.9 % (19-41); Mean Corp Hgb Conc 30.3 g/dL (32-36); Mean Corpuscular Hgb 24.8 pg (27.0-32.0); Mean Corpuscular Volume 81.9 fL (81-99); Mean Platelet Vol. 10.4 fl (6.2-12.0); Monocyte# 0.72 X10^3/uL; Monocyte% 6.3 % (0-10); NRBC Flagged by Analyzer 0 % (0-5); Neutrophil # 7.84 X10^3/uL (2.7-7.7); Neutrophil % 68.3 % (47-70); Platelet Count 261 K/mm3 (150-450); RBC Distribution Width CV 13.8 % (11.6-14.6); RBC Distribution Width SD 40.3 fl (35.1-43.9); Red Blood Count 4.19 M/mm3 (4.2-5.4); White Blood Count 11.5 K/mm3 (4.4-11.0)
[2019-11-25 07:24] LABS: Anion Gap 7 (5-15); BUN 10 mg/dL (7-18); BUN/Creat Ratio 20.9 RATIO (10-20); Calcium,Total 8.5 mg/dL (8.5-10.1); Chloride 112 mmol/L (98-107); Creatinine, Serum 0.48 mg/dL (0.55-1.02); EST Glomerular Filtration Rate 154 mL/min (>60); Est Glom Filt Rate - Afr Amer 187 mL/min (>60); Estimated Creatinine Clearance 194.92 ml/min; Glucose 90 mg/dL (74-106); Potassium 3.8 mmol/L (3.5-5.1); Sodium Level 142 mmol/L (136-145)
[2019-11-25] MEDS: Aspirin 81 MG TAB.CHEW PO (07:59)
[2019-11-25] MEDS: Fludrocortisone Acetate 0.1 MG Tablet PO (09:37)
[2019-11-25] MEDS: Oxybutynin 5 MG Tablet PO (09:37)
[2019-11-25] MEDS: Baclofen 10 MG Tablet 20 MG PO ×4 (09:37→21:20)
[2019-11-25] MEDS: DULoxetine Hcl 60 MG Capsule 120 MG PO (09:38)
[2019-11-25] MEDS: Acetaminophen 325 MG Tablet 650 MG PO (09:38)
--- NOTE | 2019-11-25 09:55 | NURSING ---
When assessment was being done pt refused to state which hospital she is at and day of month, she said, I am not saying, you guys keep asking the same thing, and I am not saying. She also refused left post lung assessment. Stat lock was placed in a low lt abd, and it obstructed urine flow, nurse wanted to change stat lock, but she wanted it changed after she has breakfast. Wish was granted, and tubing currently is not in stat lock. Instructed to call when she is ready, after breakfast, to be repositioned and linen changed. Call light in.
--- NOTE | 2019-11-25 13:00 | CASEMGMT ---
Case Management Progress Note: This field underwriter to patient bedside to complete initial RNCM assessment. Patient sleeping, aroused with verbal stimuli but states tired and kept falling asleep after multiple attempts to ask assessment questions. Patient agrees to RNCM assessment f/u at a later time. RNCM to continue to follow for assessment completion and care coordination needs. Nel Guerrero, ANTONIETTACM
[2019-11-25] MEDS: Menthol/Lanolin/Calamine/Znox 113 GM Tube 1 APPLIC TOPICAL ×2 (13:45→21:20)
--- NOTE | 2019-11-25 14:26 | PN_ITS ---
Patient Problems: Active and Suspected Problems Cellulitis (Acute) Reason for Visit: cellulitis Subjective: Has no sensation around SPC site. Complains of spasms in LE. Vitals/I&O's: Vital Signs Temp Pulse Resp BP Pulse Ox 36.6 C 80 16 108/69 98 11/25/19 13:49 11/25/19 13:59 11/25/19 13:49 11/25/19 13:49 11/25/19 13:49 Oxygen Delivery Method Room Air Weight: 82.6 kg Body Mass Index (BMI) 23.3 Intake and Output for Last 24 Hours 11/23/19 11/24/19 11/25/19 23:59 23:59 23:59 Intake Total 1716.67 / 1716.67 779 / 779 Output Total 625 / 625 Balance 1716.67 / 1716.67 154 / 154 General: Oriented x3 HEENT: Atraumatic, Normocephalic Oral: Moist Mucosa, No Gingival or Mucosal Lesions/ Ulcerations Neck: No Nodes, Trachea Midline Lungs: Clear to auscultation, Normal air movement, No rhonchi, No wheeze, No rales Cardiovascular: Regular rate, Regular Rhythm, Normal S1, Normal S2 Abdomen: Bowel Sounds Present, Soft, Non Tender, Non-Distended, - - SPC without erythema. firm indiration at 3 o-clock around the SPC. no purlence expressed. Extremities: No edema, No Calf Tenderness Skin: No rashes, No breakdown Musculoskeletal: No Tenderness to Palpation of Joints or Extremities, No Muscle Wasting Neurological: - - FOSTER spontaneously Psych/Mental Status: Normal Affect, Appropriate Laboratory Results 11/24/19 19:29: WBC 17.5 H, RBC 4.61, Hgb 11.6 L, Hct 36.3 L, MCV 78.7 L, MCH 25.2 L, MCHC 32.0, RDW Std Deviation 39.1, RDW Coeff of Domonique 13.8, Plt Count 339, MPV 10.4, Immature Gran % (Auto) 0.400, Neut % (Auto) 75.3 H, Lymph % (Auto) 15.2 L, [place] % (Auto) 6.6, Eos % (Auto) 2.0, Baso % (Auto) 0.5, Absolute Neuts (auto) 13.2 H, Absolute Lymphs (auto) 2.66, Nucleated RBC % 0 11/24/19 19:29: Sodium 138, Potassium 3.1 L, Chloride 108 H, Carbon Dioxide 25.0, Anion Gap 5, BUN 17, Creatinine 0.68, Estim Creat Clear Calc 121.30, Est GFR (MDRD) Af Amer 124, Est GFR (MDRD) Non-Af 103, BUN/Creatinine Ratio 25.0 H, Glucose 91, Calcium 8.9, Total Bilirubin 0.30, AST 14 L, ALT 29, Alkaline Phosphatase 159 H, Total Protein 7.3, Albumin 3.6, Globulin 3.7, Albumin/Globulin Ratio 1.0 11/24/19 19:29: Lactic Acid 1.1 11/24/19 19:29: PT 14.4, INR 1.1, APTT 26.6 11/24/19 20:30: Urine Color Yellow, Urine Clarity Sl. Cloudy, Urine pH 6.0, Ur Specific [place] 1.025, Urine Protein 100 H, Urine Glucose (UA) Normal, Urine Ketones 5 H, Urine Occult Blood 250 H, Urine Nitrite Negative, Urine Bilirubin 1 H, Urine Urobilinogen 1 H, Ur Leukocyte Esterase 25 H, Urine RBC 25-50 SEEN, Urine WBC 0-5 SEEN, Ur Squamous Epith Cells 0-5 SEEN, Calcium Oxalate Crystal 1+, Urine Bacteria RARE, Urine Mucus 0 SEEN 11/25/19 06:42: WBC 11.5 H, RBC 4.19 L, Hgb 10.4 L, Hct 34.3 L, MCV 81.9, MCH 24.8 L, MCHC 30.3 L, RDW Std Deviation 40.3, RDW Coeff of Domonique 13.8, Plt Count 261, MPV 10.4, Immature Gran % (Auto) 0.400, Neut % (Auto) 68.3, Lymph % (Auto) 20.9, [place] % (Auto) 6.3, Eos % (Auto) 3.6, Baso % (Auto) 0.5, Absolute Neuts (auto) 7.8 H, Absolute Lymphs (auto) 2.40, Nucleated RBC % 0 11/25/19 06:42: Sodium 142, Potassium 3.8, Chloride 112 H, Carbon Dioxide 23.0, Anion Gap 7, BUN 10, Creatinine 0.48 L, Estim Creat Clear Calc 194.92, Est GFR (MDRD) Af Amer 187, Est GFR (MDRD) Non-Af 154, BUN/Creatinine Ratio 20.9 H, Glucose 90, Calcium 8.5 Current Medications Acetaminophen (Tylenol) 650 mg PO Q6H PRN PRN PRN Reason: Pain Score 1-10/Temp > 100.7 F Last Admin: 11/25/19 09:38 Dose: 650 mg Documented by: Aspirin (Aspirin, Baby) 81 mg PO DAILYCM COUNT INCLUDES THE [facility] Last Admin: 11/25/19 07:59 Dose: 81 mg Documented by: Baclofen (Lioresal) 20 mg PO 4X/DAY COUNT INCLUDES THE [facility] Last Admin: 11/25/19 13:52 Dose: 20 mg Documented by: Calamine/Phenol (Calmoseptine Ointment) 1 applic TOPICAL BID COUNT INCLUDES THE [facility]; Protocol Last Admin: 11/25/19 13:45 Dose: 1 applicatio Documented by: Duloxetine HCl (Cymbalta) 120 mg PO DAILY COUNT INCLUDES THE [facility] Last Admin: 11/25/19 09:38 Dose: 120 mg Documented by: Enoxaparin Sodium (Lovenox) 40 mg SC DAILY COUNT INCLUDES THE [facility] Last Admin: 11/25/19 09:55 Dose: Not Given Documented by: Fludrocortisone Acetate (Florinef) 0.1 mg PO DAILY COUNT INCLUDES THE [facility] Last Admin: 11/25/19 09:37 Dose: 0.1 mg Documented by: Gabapentin (Neurontin) 800 mg PO TID COUNT INCLUDES THE [facility] Last Admin: 11/25/19 13:52 Dose: 800 mg Documented by: Glucagon () 1 mg IM .X1 PRN PRN Reason: Hypoglycemia Piperacillin Sod/Tazobactam (Sod 3.375 gm/ Sodium Chloride) 50 mls @ 12.5 mls/hr IV Q8 COUNT INCLUDES THE [facility] Last Infusion: 11/25/19 06:10 Dose: Infused Documented by: Clindamycin Phosphate 600 mg/ (Dextrose) 54 mls @ 100 mls/hr IV Q8 COUNT INCLUDES THE [facility] Last Admin: 11/25/19 13:45 Dose: 100 mls/hr Documented by: Dextrose (Dextrose 10%-Water) 250 mls @ 999 mls/hr IV .Q16M PRN; Protocol PRN Reason: HYPOGLYCEMIA Sodium Chloride () 250 mls @ 15 mls/hr IV .[id number] PRN PRN Reason: Saline Flush Sodium Chloride () 250 mls @ 15 mls/hr IV .[id number] PRN PRN Reason: Additional IVPB Infusion Melatonin (Melatonin) 5 mg PO QHS COUNT INCLUDES THE [facility] Midodrine (Proamatine) 10 mg PO TID COUNT INCLUDES THE [facility] Last Admin: 11/25/19 13:52 Dose: 10 mg Documented by: Oxybutynin Chloride (Ditropan) 5 mg PO DAILY COUNT INCLUDES THE [facility] Last Admin: 11/25/19 09:37 Dose: 5 mg Documented by: Oxycodone HCl (Oxyir) 5 mg PO Q4H PRN PRN PRN Reason: Pain Score 1-1010 Last Admin: 11/25/19 12:18 Dose: 5 mg Documented by: Potassium Chlor[facility] (K[facility]Dur) [facility] Last Admin: 11/25/19 09:37 Dose: 40 meq Documented by: Sodium Chloride () 10 - 40 ml IV UD PRN PRN Reason: SALINE FLUSH STROKE Vital Signs/Narrative: Vital Signs Temp Pulse Resp BP Pulse Ox 11/25/19 13:59 80 11/25/19 13:49 36.6 C 76 16 108/69 98 Medical Necessity - Tobacco Use Smoking Status: Current every day smoker Tobacco Use: Cigarettes Assessment/Plan All Active Problems Cellulitis (Acute) 1. sepsis * 2/2 abdominal wall cellulitis * improving 2. abdominal wall cellulitis * adjacent to SPC site * on pip-tazo and clindamycin * DC clindamycin, start vanc * follow up cultures * SPC placed on 11/18/[address] Terrell () 3. hypokalemia * resolved * monitor 4. RLL nodule * incidental finding * follow up CT in 3 months 5. Muscle spasms, paraplegia * continue baclofen 6. VTE prophylaxis: enoxaparin. Code Visit Inpatient E&M: 27673 Subs Hosp L2
[2019-11-25] MEDS: Vancomycin IV 1,000 MG/200 ML BAG 200 MG IV ×2 (15:16→22:34)
--- NOTE | 2019-11-25 17:10 | PCM.RX.CS ---
Consult Pharmacy has been consulted to manage selected antiobiotic: Vancomycin Type of Consult: New start Suspected Infection: Skin/Soft tissue Prior Doses of Antibiotics Received/Current Regimen: Vancomycin 1250mg IV x1 in the ER on 11/24/2019 at 2351 Labs: Sodium 142 mmol/L (136-145) 11/25/19 06:42 Potassium 3.8 mmol/L (3.5-5.1) 11/25/19 06:42 Chloride 112 mmol/L (98-107) H 11/25/19 06:42 Carbon Dioxide 23.0 mmol/L (21.0-32.0) 11/25/19 06:42 Anion Gap 7 (5-15) 11/25/19 06:42 BUN 10 mg/dL (7-18) 11/25/19 06:42 Creatinine 0.48 mg/dL (0.55-1.02) L 11/25/19 06:42 Est GFR (MDRD) Af Amer 187 mL/min (>60) 11/25/19 06:42 Est GFR (MDRD) Non-Af 154 mL/min (>60) 11/25/19 06:42 BUN/Creatinine Ratio 20.9 RATIO (10-20) H 11/25/19 06:42 Glucose 90 mg/dL (74-106) 11/25/19 06:42 Weight used for dosin kg Estimated Creatinine Clearance: 190ml/min Goal Trough: 15-20 mcg/mL Pharmacy Plan for Drug Dosing: Pt did receive a x1 dose of Vancomycin 1250mg IV in the ER on 11/24/2019 at 2351. Based on pt's weight and crcl, initial recommendation is for Vancomycin 1000mg IV q8h to be started 11/25/2019 at 1500. Trough to be drawn before the 4th dose of the initial dose recommendation due to the ER dose being given 15 hours before. Pharmacy Service will continue to monitor and adjust dosing as required. Follow-Up Labs: Trough Vancomycin - 11/26/2019 at 1430
[2019-11-25] MEDS: MELATONIN 10 MG TABLET 5 MG PO (21:21)
[2019-11-26] VITALS (8 sets, daily range): BP systolic 102–108; BP diastolic 59–72; PULSE 58–82; RESP 16–18; TEMP 36.4–36.7; O2SAT 95–99
[2019-11-26] MEDS: oxyCODONE 5 MG Tablet PO ×5 (03:43→22:59)
[2019-11-26 05:38] LABS: Absolute Lymphocyte Count 2.69 X10^3/uL (0.83-4.51); Absolute Neutrophil Count 4.4 X10^3/uL (2.0-7.7); Basophil# 0.06 X10^3/uL; Basophil% 0.7 % (0-1); Eosinophil# 0.37 X10^3/uL; Eosinophils% 4.6 % (0-5); Hematocrit 36.7 % (37-47); Hemoglobin 11.2 g/dL (12.0-15.0); Lymphocyte # 2.69 X10^3/ul (4.0); Lymphocyte % 33.5 % (19-41); Mean Corp Hgb Conc 30.5 g/dL (32-36); Mean Corpuscular Hgb 24.7 pg (27.0-32.0); Mean Platelet Vol. 10.7 fl (6.2-12.0); Monocyte# 0.52 X10^3/uL; Monocyte% 6.5 % (0-10); NRBC Flagged by Analyzer 0 % (0-5); Neutrophil # 4.37 X10^3/uL (2.7-7.7); Neutrophil % 54.5 % (47-70); Platelet Count 266 K/mm3 (150-450); RBC Distribution Width CV 14.2 % (11.6-14.6); RBC Distribution Width SD 40.8 fl (35.1-43.9); Red Blood Count 4.53 M/mm3 (4.2-5.4)
[2019-11-26 05:54] LABS: Anion Gap 3 (5-15); BUN 11 mg/dL (7-18); Calcium,Total 8.7 mg/dL (8.5-10.1); Chloride 110 mmol/L (98-107); EST Glomerular Filtration Rate 147 mL/min (>60); Est Glom Filt Rate - Afr Amer 177 mL/min (>60); Estimated Creatinine Clearance 187.13 ml/min; Glucose 116 mg/dL (74-106); Sodium Level 139 mmol/L (136-145)
[2019-11-26] MEDS: Vancomycin IV 1,000 MG/200 ML BAG 200 MG IV ×3 (06:25→23:00)
[2019-11-26] MEDS: Gabapentin 800 MG Tablet PO ×3 (06:26→22:59)
[2019-11-26] MEDS: Midodrine HCl 5 MG Tablet 10 MG PO ×3 (06:26→22:58)
[2019-11-26] MEDS: Acetaminophen 325 MG Tablet 650 MG PO ×2 (06:27→12:45)
[2019-11-26] MEDS: Aspirin 81 MG TAB.CHEW PO (08:38)
[2019-11-26] MEDS: Baclofen 10 MG Tablet 20 MG PO ×4 (08:40→22:58)
--- NOTE | 2019-11-26 10:00 | CASEMGMT ---
RN BELA Face to Face with patient for initial transition planning/care coordination assessment. RN BELA introduced self and role at [facility]. Patient lying in bed, alert and oriented. Patient willing to participate in assessment and is able to answer all questions appropriately. Care providers, pharmacy, and demographics verified. Patient wishes to discharge home with resumption of HHC with [facility]. Patient states she has no further needs or concerns at this time. CM to follow for discharge planning needs that may arise. PCP: Mesha Specialists: Colin, pain management; Nidhi urologist Preferred Pharmacy: [facility] Insurance: Eliecer Prescription Benefit: yes Living Will/HPOA: none LNOK: Mother, friend Living Arrangements: Patient lives with friend in 2 story house with ramp to enter the home. Friend assist with daily care. Transportation: eliecer alexander sets up transport DME/HHC: Patient states she has BSC, wheelchair, hospital bed with trapeze, and slide board. Patient has HHC with [facility] for jail and PT. CM to fax clinicals and resumption order to [phone]. Disposition Plan: Patient to discharge home with resumption of HHC, friend support, and follow-up plans in place. Lakesha NGUYEN, RN, CM
--- NOTE | 2019-11-26 10:04 | PN_ITS ---
Patient Problems: Active and Suspected Problems Cellulitis (Acute) Reason for Visit: cellulitis Subjective: still with leg spasms. no sensation around SPC site. Vitals/I&O's: Vital Signs Temp Pulse Resp BP Pulse Ox 36.6 C 58 L 18 103/59 L 98 11/26/19 08:43 11/26/19 08:43 11/26/19 08:43 11/26/19 08:43 11/26/19 08:43 Oxygen Delivery Method Room Air Weight: 82.6 kg Body Mass Index (BMI) 23.3 Intake and Output for Last 24 Hours 11/24/19 11/25/19 11/26/19 23:59 23:59 23:59 Intake Total 1716.67 / 1716.67 1240.08 / 1360.08 520 / 520 Output Total 925 / 1675 1500 / 1500 Balance 1716.67 / 1716.67 315.08 / -314.92 -980 / -980 General: Alert, No apparent distress HEENT: Atraumatic, Normocephalic Oral: Moist Mucosa, No Gingival or Mucosal Lesions/ Ulcerations Neck: No Nodes, Trachea Midline Lungs: Clear to auscultation, Normal air movement, No rhonchi, No wheeze, No rales Cardiovascular: Regular rate, Regular Rhythm, Normal S1, Normal S2, No murmurs Abdomen: Bowel Sounds Present, Soft, Non Tender, Non-Distended, No Hepato- splenomegaly Extremities: No edema, No Calf Tenderness Skin: - - slightly small area of induration at 3 o'clock from SPC site. erythema now noted. no purulence expressed. Psych/Mental Status: Appropriate, Anxious Laboratory Results 11/26/19 05:25: WBC 8.0, RBC 4.53, Hgb 11.2 L, Hct 36.7 L, MCV 81.0, MCH 24.7 L, MCHC 30.5 L, RDW Std Deviation 40.8, RDW Coeff of Domonique 14.2, Plt Count 266, MPV 10.7, Immature Gran % (Auto) 0.200, Neut % (Auto) 54.5, Lymph % (Auto) 33.5, [place] % (Auto) 6.5, Eos % (Auto) 4.6, Baso % (Auto) 0.7, Absolute Neuts (auto) 4.4, Absolute Lymphs (auto) 2.69, Nucleated RBC % 0 11/26/19 05:25: Sodium 139, Potassium 4.0, Chloride 110 H, Carbon Dioxide 26.0, Anion Gap 3 L, BUN 11, Creatinine 0.50 L, Estim Creat Clear Calc 187.13, Est GFR (MDRD) Af Amer 177, Est GFR (MDRD) Non-Af 147, BUN/Creatinine Ratio 22.0 H, Glucose 116 H, Calcium 8.7 Current Medications Acetaminophen (Tylenol) 650 mg PO Q6H PRN PRN PRN Reason: Pain Score 1-10/Temp > 100.7 F Last Admin: 11/26/19 06:27 Dose: 650 mg Documented by: Aspirin (Aspirin, Baby) 81 mg PO DAILYCM [facility] Last Admin: 11/26/19 08:38 Dose: 81 mg Documented by: Baclofen (Lioresal) 20 mg PO 4X/DAY [facility] Last Admin: 11/26/19 08:40 Dose: 20 mg Documented by: Calamine/Phenol (Calmoseptine Ointment) 1 applic TOPICAL BID [facility]; Protocol Last Admin: 11/25/19 21:20 Dose: 1 applicatio Documented by: Duloxetine HCl (Cymbalta) 120 mg PO DAILY [facility] Last Admin: 11/25/19 09:38 Dose: 120 mg Documented by: Enoxaparin Sodium (Lovenox) 40 mg SC DAILY [facility] Last Admin: 11/25/19 09:55 Dose: Not Given Documented by: Fludrocortisone Acetate (Florinef) 0.1 mg PO DAILY [facility] Last Admin: 11/25/19 09:37 Dose: 0.1 mg Documented by: Gabapentin (Neurontin) 800 mg PO TID [facility] Last Admin: 11/26/19 06:26 Dose: 800 mg Documented by: Glucagon () 1 mg IM .X1 PRN PRN Reason: Hypoglycemia Dextrose (Dextrose 10%-Water) 250 mls @ 999 mls/hr IV .Q16M PRN; Protocol PRN Reason: HYPOGLYCEMIA Sodium Chloride () 250 mls @ 15 mls/hr IV .[id number] PRN PRN Reason: Saline Flush Sodium Chloride () 250 mls @ 15 mls/hr IV .[id number] PRN PRN Reason: Additional IVPB Infusion Vancomycin IV Pharmacy to Dose (1 ea/ Sodium Chloride) 500 mls @ 250 mls/hr IV X1 PRN; Protocol PRN Reason: Rx to Dose Vancomycin HCl (Vancomycin) 1,000 mg in 200 mls @ 200 mls/hr IV Q8H [facility] Last Infusion: 11/26/19 07:25 Dose: Infused Documented by: Melatonin (Melatonin) 5 mg PO QHS [facility] Last Admin: 11/25/19 21:21 Dose: 5 mg Documented by: Midodrine (Proamatine) 10 mg PO TID [facility] Last Admin: 11/26/19 06:26 Dose: 10 mg Documented by: Oxybutynin Chloride (Ditropan) 5 mg PO DAILY [facility] Last Admin: 11/25/19 09:37 Dose: 5 mg Documented by: Oxycodone HCl (Oxyir) 5 mg PO Q4H PRN PRN PRN Reason: Pain Score 1-10/10 Last Admin: 11/26/19 08:40 Dose: 5 mg Documented by: Potassium [facility] ([facility]) [facility] Admin: 11/26/19 08:38 Dose: 40 meq Documented by: Sodium Chloride () 10 - 40 ml IV UD PRN PRN Reason: SALINE FLUSH STROKE Vital Signs/Narrative: Vital Signs Temp Pulse Resp BP Pulse Ox 11/26/19 08:43 36.6 C 58 L 18 103/59 L 98 11/26/19 08:05 95 Medical Necessity - Tobacco Use Smoking Status: Current every day smoker Tobacco Use: Cigarettes Assessment/Plan All Active Problems Cellulitis (Acute) 1. sepsis * 2/2 abdominal wall cellulitis * improving 2. abdominal wall cellulitis * adjacent to SPC site * continue Vanc * follow up cultures * SPC placed on 11/18/[address] Terrell () 3. hypokalemia * resolved * monitor 4. RLL nodule * incidental finding * follow up CT in 3 months 5. Muscle spasms, paraplegia * continue baclofen 6. VTE prophylaxis: enoxaparin. Code Visit Inpatient E&M: 26193 Subs Hosp L2
[2019-11-26] MEDS: Menthol/Lanolin/Calamine/Znox 113 GM Tube 1 APPLIC TOPICAL ×2 (10:32→23:05)
[2019-11-26] MEDS: DULoxetine Hcl 60 MG Capsule 120 MG PO (10:32)
[2019-11-26] MEDS: Oxybutynin 5 MG Tablet PO (10:32)
[2019-11-26] MEDS: Fludrocortisone Acetate 0.1 MG Tablet PO (10:32)
[2019-11-26 15:12] LABS: Vancomycin, Trough Level 13.9 ug/mL (5.0-15.0)
--- NOTE | 2019-11-26 15:57 | PCM.RX.CS ---
Consult Pharmacy has been consulted to manage selected antiobiotic: Vancomycin Type of Consult: Follow-up Suspected Infection: Sepsis, Skin/Soft tissue Prior Doses of Antibiotics Received/Current Regimen: Currently on 1000mg IV q8h Labs: Sodium 139 mmol/L (136-145) 11/26/19 05:25 Potassium 4.0 mmol/L (3.5-5.1) 11/26/19 05:25 Chloride 110 mmol/L (98-107) H 11/26/19 05:25 Carbon Dioxide 26.0 mmol/L (21.0-32.0) 11/26/19 05:25 Anion Gap 3 (5-15) L 11/26/19 05:25 BUN 11 mg/dL (7-18) 11/26/19 05:25 Creatinine 0.50 mg/dL (0.55-1.02) L 11/26/19 05:25 Est GFR (MDRD) Af Amer 177 mL/min (>60) 11/26/19 05:25 Est GFR (MDRD) Non-Af 147 mL/min (>60) 11/26/19 05:25 BUN/Creatinine Ratio 22.0 RATIO (10-20) H 11/26/19 05:25 Glucose 116 mg/dL (74-106) H 11/26/19 05:25 Vancomycin Trough 13.9 ug/mL (5.0-15.0) 11/26/19 14:36 Microbiology: Microbiology 11/24/19 20:30 Urine Catheter - Catheter Urine Culture - Preliminary Beta hemolytic organism Weight used for dosin.6 kg Estimated Creatinine Clearance: 187ml/min Goal Trough: 15-20 mcg/mL Pharmacy Plan for Drug Dosing: The vancomycin trough level drawn before this afternoon's dose was 13.9 mg/L (drawn about 8 hours after the previous dose). This is a little short of the goal range of 15-20 but will keep the same dosing for now as the patient has only had 3 doses before the trough was drawn at the q8h schedule. There had also been a gap of 15 hours between the original dose in E.R. and when the next dose was ordered and given. So it's expected that the trough will keep trending upward with the 8-hour dosing. Will check another trough tomorrow before the afternoon dose to confirm this. Pharmacy Service will continue to monitor and adjust dosing as required. Follow-Up Labs: Trough Vancomycin Labs to be done on [date and time ordered]: 11/27/19 14:30
[2019-11-26] MEDS: MELATONIN 10 MG TABLET 5 MG PO (23:00)
[2019-11-27 03:00] VITALS: BP 107/65; PULSE 72; RESP 16; TEMP 36.7; O2SAT 97
[2019-11-27] MEDS: Midodrine HCl 5 MG Tablet 10 MG PO ×3 (05:42→21:20)
[2019-11-27] MEDS: oxyCODONE 5 MG Tablet PO ×5 (05:42→23:17)
[2019-11-27] MEDS: Gabapentin 800 MG Tablet PO ×3 (05:44→21:21)
[2019-11-27] MEDS: Vancomycin IV 1,000 MG/200 ML BAG 200 MG IV ×3 (06:20→23:17)
[2019-11-27 06:40] LABS: Absolute Lymphocyte Count 2.83 X10^3/uL (0.83-4.51); Absolute Neutrophil Count 4.6 X10^3/uL (2.0-7.7); Basophil# 0.06 X10^3/uL; Basophil% 0.7 % (0-1); Eosinophils% 4.7 % (0-5); Hemoglobin 11.7 g/dL (12.0-15.0); Lymphocyte # 2.83 X10^3/ul (4.0); Lymphocyte % 33.4 % (19-41); Mean Corpuscular Hgb 24.4 pg (27.0-32.0); Mean Corpuscular Volume 81.3 fL (81-99); Mean Platelet Vol. 10.2 fl (6.2-12.0); Monocyte# 0.53 X10^3/uL; Monocyte% 6.3 % (0-10); NRBC Flagged by Analyzer 0 % (0-5); Neutrophil # 4.64 X10^3/uL (2.7-7.7); Neutrophil % 54.7 % (47-70); Platelet Count 292 K/mm3 (150-450); RBC Distribution Width SD 40.5 fl (35.1-43.9); White Blood Count 8.5 K/mm3 (4.4-11.0)
[2019-11-27 07:01] LABS: Anion Gap 2 (5-15); BUN 8 mg/dL (7-18); BUN/Creat Ratio 15.3 RATIO (10-20); Calcium,Total 9.1 mg/dL (8.5-10.1); Chloride 106 mmol/L (98-107); Creatinine, Serum 0.52 mg/dL (0.55-1.02); EST Glomerular Filtration Rate 139 mL/min (>60); Est Glom Filt Rate - Afr Amer 168 mL/min (>60); Estimated Creatinine Clearance 179.93 ml/min; Glucose 87 mg/dL (74-106); Potassium 3.9 mmol/L (3.5-5.1); Sodium Level 138 mmol/L (136-145)
[2019-11-27 07:25] VITALS: O2SAT 98
[2019-11-27 08:20] VITALS: BP 121/85; PULSE 66; RESP 18; TEMP 36.6; O2SAT 98
[2019-11-27 09:02] VITALS: O2SAT 98
[2019-11-27] MEDS: Aspirin 81 MG TAB.CHEW PO (09:24)
[2019-11-27] MEDS: DULoxetine Hcl 60 MG Capsule 120 MG PO (09:25)
[2019-11-27] MEDS: Oxybutynin 5 MG Tablet PO (09:25)
[2019-11-27] MEDS: Baclofen 10 MG Tablet 20 MG PO ×4 (09:25→21:20)
[2019-11-27] MEDS: Fludrocortisone Acetate 0.1 MG Tablet PO (09:25)
[2019-11-27] MEDS: Enoxaparin 40 MG/0.4 ML Syringe SC (09:26)
[2019-11-27] MEDS: Menthol/Lanolin/Calamine/Znox 113 GM Tube 1 APPLIC TOPICAL ×2 (09:27→21:23)
--- NOTE | 2019-11-27 10:21 | PCM.PN.HOSP ---
Patient Problems: Active and Suspected Problems Cellulitis (Acute) Reason for Visit: cellulitis Subjective: still w spasms Vitals/I&O's: Vital Signs Temp Pulse Resp BP Pulse Ox 36.6 C 66 18 121/85 H 98 11/27/19 08:20 11/27/19 08:20 11/27/19 08:20 11/27/19 08:20 11/27/19 09:02 Oxygen Delivery Method Room Air Weight: 82.6 kg Body Mass Index (BMI) 23.3 Intake and Output for Last 24 Hours 11/25/19 11/26/19 11/27/19 23:59 23:59 23:59 Intake Total 1240.08 / 1360.08 1320.5 / 1320.5 1149.5 / 1149.5 Output Total 925 / 1675 4075 / 4075 550 / 550 Balance 315.08 / -314.92 -2754.5 / -2754.5 599.5 / 599.5 General: Alert, No apparent distress HEENT: Atraumatic, Normocephalic Oral: Moist Mucosa, No Gingival or Mucosal Lesions/ Ulcerations Neck: No Nodes, Trachea Midline Lungs: Clear to auscultation, Normal air movement, No rhonchi, No wheeze Cardiovascular: Regular rate, Regular Rhythm, Normal S1, Normal S2 Abdomen: Bowel Sounds Present, Soft, Non Tender, Non-Distended Extremities: No edema, No Calf Tenderness Skin: - - 3 o'clock from SPC slight increase in knot adjacent. slight increase in erythema around catheter. Psych/Mental Status: Appropriate, Anxious Microbiology Past 72 Hours 11/24/19 20:30 Urine Catheter - Catheter Urine Culture - Preliminary Beta hemolytic organism Laboratory Results 11/26/19 14:36: Vancomycin Trough 13.9 11/27/19 06:32: WBC 8.5, RBC 4.80, Hgb 11.7 L, Hct 39.0, MCV 81.3, MCH 24.4 L, MCHC 30.0 L, RDW Std Deviation 40.5, RDW Coeff of Domonique 14.0, Plt Count 292, MPV 10.2, Immature Gran % (Auto) 0.200, Neut % (Auto) 54.7, Lymph % (Auto) 33.4, Young % (Auto) 6.3, Eos % (Auto) 4.7, Baso % (Auto) 0.7, Absolute Neuts (auto) 4.6, Absolute Lymphs (auto) 2.83, Nucleated RBC % 0 11/27/19 06:32: Sodium 138, Potassium 3.9, Chloride 106, Carbon Dioxide 30.0, Anion Gap 2 L, BUN 8, Creatinine 0.52 L, Estim Creat Clear Calc 179.93, Est GFR (MDRD) Af Amer 168, Est GFR (MDRD) Non-Af 139, BUN/Creatinine Ratio 15.3, Glucose 87, Calcium 9.1 Current Medications Acetaminophen (Tylenol) 650 mg PO Q6H PRN PRN PRN Reason: Pain Score 1-10/Temp > 100.7 F Last Admin: 11/26/19 12:45 Dose: 650 mg Documented by: [facility], [facility]) [facility] Last Admin: 11/27/19 09:24 Dose: 81 mg Documented by: Baclofen (Lioresal) 20 mg PO 4X/DAY [facility] Last Admin: 11/27/19 09:25 Dose: 20 mg Documented by: Calamine/Phenol (Calmoseptine Ointment) 1 applic TOPICAL BID [facility]; Protocol Last Admin: 11/27/19 09:27 Dose: 1 applicatio Documented by: Duloxetine HCl (Cymbalta) 120 mg PO DAILY [facility] Last Admin: 11/27/19 09:25 Dose: 120 mg Documented by: Enoxaparin Sodium (Lovenox) 40 mg SC DAILY [facility] Last Admin: 11/27/19 09:26 Dose: 40 mg Documented by: Fludrocortisone Acetate (Florinef) 0.1 mg PO DAILY [facility] Last Admin: 11/27/19 09:25 Dose: 0.1 mg Documented by: Gabapentin (Neurontin) 800 mg PO TID [facility] Last Admin: 11/27/19 05:44 Dose: 800 mg Documented by: Glucagon () 1 mg IM .X1 PRN PRN Reason: Hypoglycemia Dextrose (Dextrose 10%-Water) 250 mls @ 999 mls/hr IV .Q16M PRN; Protocol PRN Reason: HYPOGLYCEMIA Sodium Chloride () 250 mls @ 15 mls/hr IV .[id number] PRN PRN Reason: Saline Flush Last Infusion: 11/27/19 09:14 Dose: Infused Documented by: Sodium Chloride () 250 mls @ 15 mls/hr IV .[id number] PRN PRN Reason: Additional IVPB Infusion Vancomycin IV Pharmacy to Dose (1 ea/ Sodium Chloride) 500 mls @ 250 mls/hr IV X1 PRN; Protocol PRN Reason: Rx to Dose Vancomycin HCl (Vancomycin) 1,000 mg in 200 mls @ 200 mls/hr IV Q8H [facility] Last Infusion: 11/27/19 09:14 Dose: Infused Documented by: Melatonin (Melatonin) 5 mg PO QHS [facility] Last Admin: 11/26/19 23:00 Dose: 5 mg Documented by: Midodrine (Proamatine) 10 mg PO TID [facility] Last Admin: 11/27/19 05:42 Dose: 10 mg Documented by: Oxybutynin Chloride (Ditropan) 5 mg PO DAILY [facility] Last Admin: 11/27/19 09:25 Dose: 5 mg Documented by: Oxycodone HCl (Oxyir) 5 mg PO Q4H PRN PRN PRN Reason: Pain Score 1-10/10 Last Admin: 11/27/19 09:33 Dose: 5 mg Documented by: Potassium Chloride (K-Dur) 40 meq PO DAILYCM [facility] Last Admin: 11/27/19 09:24 Dose: 40 meq Documented by: Sodium Chloride () 10 - 40 ml IV UD PRN PRN Reason: SALINE FLUSH STROKE Vital Signs/Narrative: Vital Signs Temp Pulse Resp BP Pulse Ox 11/27/19 09:02 98 11/27/19 08:20 36.6 C 66 18 121/85 H 98 11/27/19 07:25 98 Medical Necessity - Tobacco Use Smoking Status: Current every day smoker Tobacco Use: Cigarettes Assessment/Plan All Active Problems Cellulitis (Acute) 1. sepsis 2/2 abdominal wall cellulitis improving 2. abdominal wall cellulitis appears slightly worse adjacent to SPC site continue Vanc follow up cultures SPC placed on 11/18/[address] Terrell () check US 3. hypokalemia resolved monitor 4. RLL nodule incidental finding follow up CT in 3 months 5. Muscle spasms, paraplegia continue baclofen 6. VTE prophylaxis: enoxaparin. Code Visit Inpatient E&M: 83812 Subs Hosp L2
--- NOTE | 2019-11-27 10:23 | US_ITS ---
STUDY: SUPERFICIAL ULTRASOUND - LOW ANTERIOR ABDOMINAL WALL REASON FOR EXAM: Female, 39 years old. RULE OUT ABSCESS AT SUPRAPUBIC CATHETER TECHNIQUE: A superficial ultrasound was performed with real-time and static galicia-scale imaging. COMPARISON: CT abdomen and pelvis without contrast November 24, 2019. FINDINGS: Suprapubic catheter is identified passing through the mildly thickened subcutaneous tissues of the low anterior abdominal wall. No collection is demonstrated to indicate an abscess. US/Other Unlisted US Procedure IMPRESSION: Suprapubic catheter identified passing through the subcutaneous tissues. There is no demonstrated abscess of the adjacent low anterior abdominal wall. Electronically Signed: Yaakov Beltran MD at 17:39 EST , Service support ,
[2019-11-27 14:55] VITALS: BP 115/84; PULSE 97; RESP 18; TEMP 36.8; O2SAT 94
[2019-11-27 15:29] LABS: Vancomycin, Trough Level 14.7 ug/mL (5.0-15.0)
--- NOTE | 2019-11-27 17:07 | PCM.RX.CS ---
Consult Pharmacy has been consulted to manage selected antiobiotic: Vancomycin Type of Consult: Follow-up Suspected Infection: Skin/Soft tissue Prior Doses of Antibiotics Received/Current Regimen: VANCOMYCIN 1000MG IV GIVEN AT 0620 ON 11/27 Labs: Sodium 138 mmol/L (136-145) 11/27/19 06:32 Potassium 3.9 mmol/L (3.5-5.1) 11/27/19 06:32 Chloride 106 mmol/L (98-107) 11/27/19 06:32 Carbon Dioxide 30.0 mmol/L (21.0-32.0) 11/27/19 06:32 Anion Gap 2 (5-15) L 11/27/19 06:32 BUN 8 mg/dL (7-18) 11/27/19 06:32 Creatinine 0.52 mg/dL (0.55-1.02) L 11/27/19 06:32 Est GFR (MDRD) Af Amer 168 mL/min (>60) 11/27/19 06:32 Est GFR (MDRD) Non-Af 139 mL/min (>60) 11/27/19 06:32 BUN/Creatinine Ratio 15.3 RATIO (10-20) 11/27/19 06:32 Glucose 87 mg/dL (74-106) 11/27/19 06:32 Vancomycin Trough 14.7 ug/mL (5.0-15.0) 11/27/19 14:35 Microbiology: Microbiology 11/24/19 19:29 Blood Culture (Wb) - Anticubital Left Blood Culture - Preliminary No growth in 48 hours. 11/24/19 19:51 Blood Culture (Wb) - Anticubital Right Blood Culture - Preliminary No growth in 48 hours. 11/24/19 20:30 Urine Catheter - Catheter Urine Culture - Preliminary Beta hemolytic organism Weight used for dosin.6 kg Estimated Creatinine Clearance: 179 Goal Trough: 15-20 mcg/mL Pharmacy Plan for Drug Dosin. 8 hour trough drawn at 1435 is slightly below therapeutic range at 14.7 mg/dL. 2. Will continue current regimen since it is within 0.3 mg/dL of goal range. 3. Will schedule a trough in 2 days to reassess. 4. Pharmacy Service will continue to monitor and adjust dosing as required. Labs to be done on [date and time ordered]: 11/29/2019 @ 1430
[2019-11-27 21:16] VITALS: BP 115/61; PULSE 76; RESP 18; TEMP 37.1; O2SAT 100
[2019-11-27] MEDS: MELATONIN 10 MG TABLET 5 MG PO (21:21)
[2019-11-27] MEDS: 0.9% Saline Lock 10 ML Syringe IV (23:17)
[2019-11-28] MEDS: oxyCODONE 5 MG Tablet PO ×3 (03:29→12:42)
[2019-11-28 03:32] VITALS: BP 118/74; PULSE 76; RESP 18; TEMP 36.9; O2SAT 95
[2019-11-28] MEDS: 0.9% Saline Lock 10 ML Syringe IV (06:35)
[2019-11-28] MEDS: Vancomycin IV 1,000 MG/200 ML BAG 200 MG IV (06:35)
[2019-11-28] MEDS: Midodrine HCl 5 MG Tablet 10 MG PO ×2 (06:42→14:35)
[2019-11-28] MEDS: Gabapentin 800 MG Tablet PO ×2 (06:42→14:35)
[2019-11-28] MEDS: Aspirin 81 MG TAB.CHEW PO (08:49)
[2019-11-28] MEDS: DULoxetine Hcl 60 MG Capsule 120 MG PO (08:49)
[2019-11-28] MEDS: Fludrocortisone Acetate 0.1 MG Tablet PO (08:50)
[2019-11-28] MEDS: Oxybutynin 5 MG Tablet PO (08:50)
[2019-11-28] MEDS: Baclofen 10 MG Tablet 20 MG PO ×2 (08:50→14:35)
[2019-11-28] MEDS: Menthol/Lanolin/Calamine/Znox 113 GM Tube 1 APPLIC TOPICAL (08:51)
[2019-11-28 09:09] VITALS: BP 119/70; PULSE 90; RESP 16; TEMP 36.9; O2SAT 99
--- NOTE | 2019-11-28 09:23 | PCM.DC ---
- Discharge Diagnoses Current Active Problems: Current Active and Chronic Problems Cellulitis (Acute) You will use the following diet at home:: No restrictions Call your doctor if your incision/area has: Continuous Slow Oozing, Increased Redness, Foul Smelling Discharge, Swelling at the incision site Call your doctor if you observe: Fever of 101 or Higher Allergies/Adverse Reactions: Allergies No Known Allergies Allergy (Verified 11/24/19 18:46) Medications to take at Discharge Aspirin [Aspirin, Baby] 1 tab PO DAILY 10/19/19 Bacillus/Protease/Amylas/Lipas [Digest Adv Intensive Bowel Cap] 1 cap PO DAILY 10/19/19 Baclofen 1 tab PO 4X/DAY 10/19/19 Duloxetine HCl 2 tab PO DAILY 10/19/19 Fludrocortisone Acetate [Florinef] 1 tab PO DAILY 10/19/19 Gabapentin 1 tab PO TID 10/19/19 Melatonin 1 tab PO QHS 10/19/19 Midodrine HCl 1 tab PO TID 10/19/19 Oxycodone HCl/Acetaminophen [Oxycodone-Acetaminophen 5-325] 1 ea PO Q4H PRN PRN 10/19/19 Oxybutynin [Ditropan] 5 mg PO DAILY 11/24/19 Cephalexin [Keflex] 500 mg PO Q8 #15 cap 11/28/19 Doxycycline 100 mg PO BID #10 cap 11/28/19 The following prescriptions were given: Doxycycline 100 mg PO BID #10 cap Transmission Status: Pending to [facility] Cephalexin [Keflex] 500 mg PO Q8 #15 cap Transmission Status: Pending to [facility] Primary Care Physician: Qamar Zimmer MD [Primary Care Provider] - Within 1 Week Test Results: Test results from this visit will be discussed in further detail at your follow-up appointment, if applicable. Please Follow Up With: Nicolas Terrell MD When: next scheduled appointment Please Follow Up With: Pain mgmt When: reschedule appointment Proposed Discharge Date: 11/28/19
--- NOTE | 2019-11-28 09:25 | DS.PCM_ITS ---
Discharge Date and Diagnosis - Problem List Patient Problems: Active and Suspected Problems Cellulitis (Acute) Date of Admission: 11/24/19 Date of Discharge: 11/28/19 - Primary Discharge Diagnosis Active and Suspected Problems Cellulitis (Acute) 1. sepsis * 2/2 abdominal wall cellulitis * improving 2. abdominal wall cellulitis * improved * adjacent to SPC site * change to 5 more days of Keflex and doxycycline * SPC placed on 11/18/[address] Terrell () * US negative for abscess 3. hypokalemia * resolved * monitor 4. RLL nodule * incidental finding * follow up CT in 3 months 5. Muscle spasms, paraplegia * continue baclofen - Secondary Discharge Diagnosis Chronic Problems history of left lower tooth abcess (Chronic) Psoriasis (Chronic) Diarrhea (Chronic) Nausea and vomiting (Chronic) Esophageal reflux (Chronic) Hospital Course and Treatment Imaging Results: Clinical Impression(s) from Imaging Studies Chest X-Ray 11/24/19 19:53 IMPRESSION: No acute cardiopulmonary process. Electronically Signed: Pat Hernandez MD at 20:09 EST Tel , Service support , Abdomen/Pelvis CT 11/24/19 20:28 IMPRESSION: Mild subcutaneous stranding and skin thickening adjacent to suprapubic catheter extending into the urinary bladder, suggestive of underlying cellulitis. No abscess is visualized. Moderate amount of stool throughout the colon. Indeterminate 9.6 mm nodule within the right lower lobe, recommend a follow-up chest CT in 3 months. Electronically Signed: Pat Hernandez MD at 21:14 EST Tel , Service support , Soft Tissue Ultrasound 11/27/19 10:23 IMPRESSION: Suprapubic catheter identified passing through the subcutaneous tissues. There is no demonstrated abscess of the adjacent low anterior abdominal wall. Electronically Signed: Yaakov Beltran MD at 17:39 EST , Service support , Operations: None Procedures: None Summary of Care Provided: The patient is a 39 year old F with sepsis which was due to cellulitis of the abdominal wall. Patient had superior catheter placed on [address] Terrell. Patient had CAT scan that showed cellulitis but also did show a lung nodule. Lung nodule to be followed up as outpatient with repeat CT imaging. Patient had not to the left lateral aspect of the superior catheter. CAT scan did not show any abscess and an ultrasound performed on 6 did not show an abscess. Patient was on amoxicillin as well as trimethoprim/sulfamethoxazole as outpatient. No necessary feel that is antibiotic failure but will change patient over to Keflex and doxycycline to complete 5 more days of antibiotics. Overall patient is better and resolved from sepsis. Patient only main issue during her hospitalization was muscle spasms which is a chronic process for her. Patient is already on baclofen for that. [] Patient Problems: Active and Suspected Problems Cellulitis (Acute) - Physical Exam Vitals/I&O's: Vital Signs Temp Pulse Resp BP Pulse Ox 36.9 C 90 16 119/70 99 11/28/19 09:09 11/28/19 09:09 11/28/19 09:09 11/28/19 09:09 11/28/19 09:09 Oxygen Delivery Method Room Air Weight: 82.6 kg Body Mass Index (BMI) 23.3 Intake and Output for Last 24 Hours 11/26/19 11/27/19 11/28/19 23:59 23:59 23:59 Intake Total 1320.5 / 1320.5 3649.5 / 3649.5 913.25 / 913.25 Output Total 4075 / 4075 2350 / 2350 1200 / 1200 Balance -2754.5 / -2754.5 1299.5 / 1299.5 -286.75 / -286.75 General: Alert, No apparent distress HEENT: Atraumatic, Normocephalic Abdomen: - - Superior catheter site visualized. Patient with a decreased erythema surrounding that as well as still with the persistent hardened area to the left aspect of the superior catheter. Microbiology Past 72 Hours 11/24/19 20:30 Urine Catheter - Catheter Urine Culture - Final Staphylococcus haemolyticus 11/24/19 19:29 Blood Culture (Wb) - Anticubital Left Blood Culture - Preliminary No growth in 48 hours. 11/24/19 19:51 Blood Culture (Wb) - Anticubital Right Blood Culture - Preliminary No growth in 48 hours. Laboratory Results 11/27/19 14:35: Vancomycin Trough 14.7 Current Medications Acetaminophen (Tylenol) 650 mg PO Q6H PRN PRN PRN Reason: Pain Score 1-10/Temp > 100.7 F Last Admin: 11/26/19 12:45 Dose: 650 mg Documented by: Aspirin (Aspirin, Baby) 81 mg PO DAILYCM [facility] Last Admin: 11/28/19 08:49 Dose: 81 mg Documented by: Baclofen (Lioresal) 20 mg PO 4X/DAY [facility] Last Admin: 11/28/19 08:50 Dose: 20 mg Documented by: Calamine/Phenol (Calmoseptine Ointment) 1 applic TOPICAL BID [facility]; Protocol Last Admin: 11/28/19 08:51 Dose: 1 applicatio Documented by: Duloxetine HCl (Cymbalta) 120 mg PO DAILY [facility] Last Admin: 11/28/19 08:49 Dose: 120 mg Documented by: Enoxaparin Sodium (Lovenox) 40 mg SC DAILY [facility] Last Admin: 11/28/19 08:53 Dose: Not Given Documented by: Fludrocortisone Acetate (Florinef) 0.1 mg PO DAILY [facility] Last Admin: 11/28/19 08:50 Dose: 0.1 mg Documented by: Gabapentin (Neurontin) 800 mg PO TID [facility] Last Admin: 11/28/19 06:42 Dose: 800 mg Documented by: Glucagon () 1 mg IM .X1 PRN PRN Reason: Hypoglycemia Dextrose (Dextrose 10%-Water) 250 mls @ 999 mls/hr IV .Q16M PRN; Protocol PRN Reason: HYPOGLYCEMIA Sodium Chloride () 250 mls @ 15 mls/hr IV .[id number] PRN PRN Reason: Saline Flush Last Infusion: 11/28/19 08:56 Dose: 0 mls/hr Documented by: Sodium Chloride () 250 mls @ 15 mls/hr IV .[id number] PRN PRN Reason: Additional IVPB Infusion Vancomycin IV Pharmacy to Dose (1 ea/ Sodium Chloride) 500 mls @ 250 mls/hr IV X1 PRN; Protocol PRN Reason: Rx to Dose Vancomycin HCl (Vancomycin) 1,000 mg in 200 mls @ 200 mls/hr IV Q8H [facility] Last Infusion: 11/28/19 08:04 Dose: Infused Documented by: Melatonin (Melatonin) 5 mg PO QHS [facility] Last Admin: 11/27/19 21:21 Dose: 5 mg Documented by: Midodrine (Proamatine) 10 mg PO TID [facility] Last Admin: 11/28/19 06:42 Dose: 10 mg Documented by: Oxybutynin Chloride (Ditropan) 5 mg PO DAILY [facility] Last Admin: 11/28/19 08:50 Dose: 5 mg Documented by: Oxycodone HCl (Oxyir) 5 mg PO Q4H PRN PRN PRN Reason: Pain Score 1-07/31 Last Admin: 11/28/19 08:48 Dose: 5 mg Documented by: Potassium [facility]Dur) [facility] Admin: 11/28/19 08:49 Dose: 40 meq Documented by: Sodium Chloride () 10 - 40 ml IV UD PRN PRN Reason: SALINE FLUSH Last Admin: 11/28/19 06:35 Dose: 10 ml Documented by: Discharge Diet: No Restrictions Discharge Activity: Return to Normal Activity Call your doctor if your incision/area has: Continuous Slow Oozing, Increased Redness, Foul Smelling Discharge, Swelling at the incision site Call your doctor if you observe: Fever of 101 or Higher Home Medications: Medications to take at Discharge Aspirin [Aspirin, Baby] 1 tab PO DAILY 10/19/19 Bacillus/Protease/Amylas/Lipas [Digest Adv Intensive Bowel Cap] 1 cap PO DAILY 10/19/19 Baclofen 1 tab PO 4X/DAY 10/19/19 Duloxetine HCl 2 tab PO DAILY 10/19/19 Fludrocortisone Acetate [Florinef] 1 tab PO DAILY 10/19/19 Gabapentin 1 tab PO TID 10/19/19 Melatonin 1 tab PO QHS 10/19/19 Midodrine HCl 1 tab PO TID 10/19/19 Oxycodone HCl/Acetaminophen [Oxycodone-Acetaminophen 5-325] 1 ea PO Q4H PRN PRN 10/19/19 Oxybutynin [Ditropan] 5 mg PO DAILY 11/24/19 Cephalexin [Keflex] 500 mg PO Q8 #15 cap 11/28/19 Doxycycline 100 mg PO BID #10 cap 11/28/19 Following Prescrptions Were Given to Patient: Doxycycline 100 mg PO BID #10 cap Transmission Status: Pending to [facility] #30 Cephalexin [Keflex] 500 mg PO Q8 #15 cap Transmission Status: Pending to [facility] #30 Primary Care Physician: Qamar Zimmer MD [Primary Care Provider] - Within 1 Week Please Follow Up With: Nicolas Terrell MD When: next scheduled appointment Please Follow Up With: Pain mgmt When: reschedule appointment Disposition: Home with Home Health Minutes spent on discharge:: 32 Patient Condition:: Good Medical Necessity - Tobacco Use Smoking Status: Current every day smoker Tobacco Use: Cigarettes Meaningful Use Info Meaningful Use Diagnoses (Choose all that apply): None applicable Code Visit Inpatient E&M: 33460 Disch Hosp
[2019-11-28] MEDS: Acetaminophen 325 MG Tablet 650 MG PO (11:44)
[2019-11-28 11:48] VITALS: BP 110/73; PULSE 96; RESP 16; TEMP 36.6; O2SAT 97
--- NOTE | 2019-11-28 13:28 | CASEMGMT ---
Patient discharging home with resumption of care. Discharge information faxed to [facility].
--- NOTE | 2019-11-28 14:38 | NURSING ---
home medications given to pt
[2019-11-28 14:45] VITALS: O2SAT 97
== END 2019-11-28 16:15 | disposition home or self-care (01) | DRG 720 ==
LOC: ED 20:39 → MS3 11-25 01:29
PROVIDERS: Admitting Provider Hospitalist; Emergency Provider Emergency Medicine; PCP Family Medicine; Referring Provider Family Medicine
DX: A41.9 Sepsis, unspecified organism (principal); L03.311 Cellulitis of abdominal wall; E87.6 Hypokalemia; R91.1 Solitary pulmonary nodule; G82.20 Paraplegia, unspecified; M62.838 Other muscle spasm; K21.9 Gastro-esophageal reflux disease without esophagitis; L40.9 Psoriasis, unspecified; F17.210 Nicotine dependence, cigarettes, uncomplicated; G06.2 Extradural and subdural abscess, unspecified
CPT/HCPCS: 36415; 71045; 74176; 76999; 80048; 80053; 80202; 81001; 83605; 85025; 85610; 85730; 87040; 87077; 87086; 87088; 87186; 97110; 97162; 97166; 97530; 99285; J7030; J7040; J7050; A4216

== ENCOUNTER 2019-12-02 12:52 | Emergency (ER) | payer MEDICAID, SELFPAY ==
[2019-11-25 00:52] VITALS: BMI 23.3
[2019-12-02 12:53] VITALS: BP 114/80; PULSE 98; RESP 16; TEMP 36.9; O2SAT 100; BMI 23.1
--- NOTE | 2019-12-02 13:35 | ED.VIS.GEN ---
History of Present Illness Chief Complaint: Other, Pain/Inj Informant: Patient Narrative: Patient states that she has spinal abscess became a paraplegic. She was at [facility] through September than she was discharged and has been home. She was admitted last week into the hospital with a infection. She states because of that hospitalization she missed her pain management appointment. She is having problems with some spasticity and tone in her legs complicating her rehab but was wondering if she could get a prescription for Zanaflex. She states she was on that before going to rehab but then it made her blood pressure going to the 50s. She also states she is out of her Percocet. She states that she takes Perc 5's. She tells me she has an appointment in 2 days with her neurosurgeon. She tells me that her PCP who is fairly new to her wants her to have pain management write her pain medication. She states that because she was in the hospital and did not call to cancel her appointment she was discharged from pain management. Past Medical History - Allergies and Home Meds Allergies/Adverse Reactions: Allergies No Known Allergies Allergy (Verified 12/02/19 12:55) Primary Care Physician: Qamar Zimmer MD [Primary Care Provider] - Surgical History: - - suprapubic catheter placement Smoking Status: Current every day smoker - Family History Maternal Family History: Reports: - - She reports that her mother has MS. Paternal Family History: Reports: - - Patient did not provide paternal medical history after several attempts. Review of Systems General: Denies: Chills, Fever, Sweats Eyes: Denies: Visual changes - bilaterally, Diplopia ENT: Denies: Rhinorrhea, Sore throat Cardiovascular: Denies: Chest pain, Palpitations Respiratory: Denies: Dyspnea, Cough, Dyspnea on exertion Gastrointestinal: Denies: Abdominal pain, Nausea, Vomiting, Diarrhea, Melena, Hematochezia Genitourinary: Denies: Dysuria, Hematuria, Frequency Musculoskeletal: Denies: Back pain, Extremity Pain Skin: Denies: Rash, Wounds Neurological: Reports: - - Muscle spasms of the leg. Denies: Headache, Weakness, Numbness Psych: Denies: Suicidal thoughts, Suicidal ideations Physical Exam Vital Signs/Narrative: Vital Signs Temp Pulse Resp BP Pulse Ox 12/02/19 12:53 98.5 F 98 16 114/80 100 General: Well nourished, Well developed, No Acute Distress Head: Normocephalic, Atraumatic Eyes: Perrl, EOMI ENT: Moist mucous membranes, No rhinorrhea Neck: Supple, Nontender Cardiovascular: Regular rate, Regular rhythm, No murmurs Respiratory: No distress, CTA bilaterally, Chest nontender Abdomen: Soft, Nontender, Nondistended, Normal bowel sounds Back: Nontender, Normal Inspection Extremities: Nontender, No edema Skin: Normal color, No rash Neurological: Alert, Oriented x3, Cranial nerves II-XII grossly intact Psychological: Tearful Diagnostic/Tx/Re-eval - Medical Decision Making I reviewed the patient's oars report. We can try some Valium and see if this helps with her spasticity until she can see her neurosurgeon. I do not feel comfortable giving her Zanaflex if it made her blood pressure go into the 50s especially since I do not know her case. As far as narcotics ago I certainly feel for the patient. However I find that it is inappropriate for the emergency department to be the supplier of her pain medication. This was explained to the patient. ED Disposition - Plan for ED Patient: Disposition: Home or Assisted Living Diagnosis: Muscle spasms of both lower extremities Instructions: ED Chronic Pain Prescriptions: Diazepam [Valium] 5 mg PO Q8 PRN #9 tab PRN Reason: Muscle Spasm Prescription Printed Referrals: Qamar Zimmer MD [Primary Care Provider] - As soon as possible Additional Instructions: Keep your appointment with your neurosurgeon
== END 2019-12-02 13:46 | disposition home or self-care (01) ==
LOC: ED 13:46
PROVIDERS: Emergency Provider Emergency Medicine; PCP Family Medicine
DX: M62.838 Other muscle spasm (principal); G82.20 Paraplegia, unspecified; F17.200 Nicotine dependence, unspecified, uncomplicated
CPT/HCPCS: 99281; 99282

== ENCOUNTER 2019-12-24 14:26 | Inpatient (IN) | payer MEDICAID, SELFPAY ==
[2019-12-24] VITALS (16 sets, daily range): BP systolic 103–118; BP diastolic 53–87; PULSE 92–120; RESP 17–21; TEMP 36.5–37.1; O2SAT 98–100; BMI 23.1; BMI 24.0
--- NOTE | 2019-12-24 15:14 | EKG12_ITS ---
Test Reason : SEPTIC Blood Pressure : / mmHG Vent. Rate : 106 BPM Atrial Rate : 106 BPM P-R Int : 138 ms QRS Dur : 112 ms QT Int : 378 ms P-R-T Axes : 054 089 044 degrees QTc Int : 502 ms Sinus tachycardia Incomplete right bundle branch block Borderline ECG Confirmed by ERNESTO RAMOS, HELENA ([id number]), news copy editor CORRINE DUNCAN ([id number]) on 12/26/2019 8:04:16 AM Referred By: HITESH Confirmed By:CASSIDY OROZCO MD
--- NOTE | 2019-12-24 15:20 | RAD_ITS ---
STUDY: X-RAY - RIGHT FOOT CLINICAL: Female, 39 years old. Nonhealing wound, patient is paraplegic TECHNIQUE: 3 view(s) of the foot. COMPARISON: None. FINDINGS: Bones are diffusely demineralized. No demonstrated fracture or suspicious osseous lesion. No subcutaneous emphysema. However, a subtle fracture or erosive lesion could be overlooked due to the diffuse osteopenia. Consider further evaluation with CT if there is strong clinical suspicion of either. RAD/Foot min 3 Views IMPRESSION: Diffuse osteopenia, no demonstrated fracture or suspicious osseous lesion Electronically Signed: Yaakov Cage MD at 17:42 EST , Service support ,
--- NOTE | 2019-12-24 15:21 | ED.DCSUM_ITS ---
History of Present Illness Chief Complaint: Wound Narrative: Patient presenting secondary to concern for skin infections. Patient has an underlying history of paraplegia has a suprapubic catheter. Patient reports that over the course the last 3 to 4 days she has been feeling generally malaised, has been able to get out of bed and has been sleeping, has been getting dehydrated and has been noting that she has foul draining material coming from her suprapubic catheter, as well as decreased urinary drainage, as well as a rash on her abdomen. Patient is also concerned that she potentially has an infection of her right heel. Patient denies that she has had fevers, denies nausea or vomiting. She denies any cough sore throat or any other infectious signs or symptoms. Patient denies that she has been admitted to the hospital recently or recently on antibiotics. Past Medical History - Allergies and Home Meds Allergies/Adverse Reactions: Allergies No Known Allergies Allergy (Verified 12/24/19 14:32) Primary Care Physician: Qamar Zimmer MD [Primary Care Provider] - Past Medical History: - - Paraplegia with suprapubic catheter Surgical History: - - suprapubic catheter placement Smoking Status: Current every day smoker - Family History Maternal Family History: Reports: - - She reports that her mother has MS. Paternal Family History: Reports: - - Patient did not provide paternal medical history after several attempts. Review of Systems All systems negative except as indicated General: Reports: Malaise Eyes: Denies: Visual changes - bilaterally, Diplopia ENT: Denies: Rhinorrhea, Sore throat Cardiovascular: Denies: Chest pain, Palpitations Respiratory: Denies: Dyspnea, Cough, Dyspnea on exertion Gastrointestinal: Denies: Abdominal pain, Nausea, Vomiting, Diarrhea, Melena, Hematochezia Genitourinary: Denies: Dysuria, Hematuria, Frequency Musculoskeletal: Denies: Back pain, Extremity Pain Skin: Reports: Rash, Abscess, Wounds Neurological: Reports: Weakness - Paraplegia at baseline. Denies: Headache, Numbness Physical Exam Vital Signs/Narrative: Vital Signs Temp Pulse Resp BP Pulse Ox 12/24/19 14:44 120 H 18 105/65 99 12/24/19 14:28 98.7 F Inital Vital Signs reviewed: Yes General: Well nourished, Well developed, No Acute Distress Head: Normocephalic, Atraumatic Eyes: Perrl, EOMI ENT: Dry mucous membranes Neck: Supple, Nontender Cardiovascular: Regular rhythm, No murmurs, Tachycardia, - - 2+ radial pulses bilaterally symmetric Respiratory: No distress, CTA bilaterally, Chest nontender Abdomen: Soft, Nontender, Nondistended, Normal bowel sounds, - - Abdomen shows areas of excoriation on the right lower abdomen with surrounding erythema and some mild drainage. Patient suprapubic catheter also has surrounding erythema with purulent drainage. Extremities: - - Examination of the patient's right lower extremity shows a area of erythema with purulent active drainage coming from the right heel. Skin: Rash Neurological: Alert, Oriented x3 Diagnostic/Tx/Re-eval Chest X-Ray - ED: 1 View, Read by ED Physician, Read by Radiologist, - - No evidence of acute infiltrate. Good placement of right internal jugular venous catheter - EKG Initial EKG Interpretation: - - Sinus tachycardia with a rate of 106. Incomplete right bundle branch block morphology is noted. Isoelectric ST segments normal T waves. - Medical Decision Making Patient is a paraplegic concerning for sepsis from skin infections. She had evidence of skin infection on the abdomen, purulent drainage from her suprapubic catheter site, and purulent drainage coming from the right heel. X-ray of the right foot per radiology is found to be negative. Patient was unable to have b [employer] work obtained due to a past history of IV drug abuse. She was consented for central line placement, this was performed as noted in the procedure note. Patient was started on Unasyn and vancomycin empirically and was given fluid resuscitation. She was found to have mildly elevated liver enzymes, as well as profound leukocytosis in the 20s. I believe the patient requires admission secondary to sepsis at this time. Patient will be admitted under the hospitalist. - Critical Care Time Critical care time (excluding procedures): 30-74 minutes Procedures Procedure(s): Right ultrasound-guided internal jugular central venous catheter: Patient was given informed consent, and did sign a consent form for right int ernal jugular central venous catheterization. Ultrasound was utilized to identify the patient's right internal jugular vein. Patient was placed in a Trendelenburg position. Right neck was prepared with chlorhexidine. Patient was draped head to toe in a sterile fashion. Lidocaine was instilled over the injection sites, and the right internal jugular vein was cannulated under direct ultrasound visualization. Seldinger technique was then utilized to place a triple-lumen catheter. There was good draw and flush from all 3 ports. It was sutured in place with a Biopatch, and sterile dressing was placed by nursing. It was confirmed via chest x-ray. ED Disposition - Plan for ED Patient: Disposition: Acute Care Hospital [facility] Diagnosis: Sepsis, Blister of right heel with infection, Abdominal wall cellulitis
[2019-12-24] MEDS: LORazepam 1 MG Tablet PO (16:35)
--- NOTE | 2019-12-24 16:40 | CM.ED ---
Addendum entered by Marie Edmondson 12/24/19 16:52: number for finance officer, Cami ([phone]). Original Note: Social Work Consult: Paraplegia, lives with friends, not being cared for adequately, several wounds. Informant: Dr. Pike Attempted to meet with patient in room. Introduced self as well as socially responsible investment adviser role. Patient stating to want to talk later. Patient stating to be scared. This socially responsible investment adviser inquiring as to main reason why patient is scared, patient not answering this socially responsible investment adviser. This socially responsible investment adviser asking if there is anything this socially responsible investment adviser could get for patient, patient denies any needs. Per nursing staff patient finance officer, Camitom Hardin did a wellness check on patient today and found patient with wounds a signs of neglect. Patient with a history of substance abuse per nursing staff and last use was recent. Patient with wounds that are not being cared for per nursing staff. Social work to continue to follow as needed. Current recommendation by medical team is for patient to be admitted to acute unit. Will continue to follow as needed. Mack CHICAS, LUIS MANUEL
--- NOTE | 2019-12-24 17:11 | RAD_ITS ---
STUDY: X-RAY CHEST REASON FOR EXAM: Female, 39 years old. Fever TECHNIQUE: Single AP portable view of the chest. COMPARISON: 11/24/2019 FINDINGS: EKG leads overlie the chest. Right IJ central venous catheter tip in the distal SVC. The lungs are clear and expanded. There is no demonstrated pleural abnormality. Normal size heart. Normal mediastinum and rufino. Normal visualized pulmonary arteries. Normal visualized aortic arch and descending thoracic aorta. Normal visualized thoracic spine. Normal visualized ribs, clavicles, and shoulders. There is no demonstrated abnormality of the visualized soft tissue structures of the upper abdomen. RAD/Chest 1 View (Portable) IMPRESSION: No acute pulmonary process Electronically Signed: Yaakov Cage MD at 17:40 EST , Service support ,
[2019-12-24 17:43] LABS: Absolute Lymphocyte Count 2.32 X10^3/uL (0.83-4.51); Absolute Neutrophil Count 17.3 X10^3/uL (2.0-7.7); Basophil# 0.05 X10^3/uL; Basophil% 0.2 % (0-1); Eosinophil# 0.02 X10^3/uL; Eosinophils% 0.1 % (0-5); Hematocrit 35.3 % (37-47); Lymphocyte # 2.32 X10^3/ul (4.0); Mean Corp Hgb Conc 31.2 g/dL (32-36); Mean Corpuscular Hgb 24.2 pg (27.0-32.0); Mean Corpuscular Volume 77.8 fL (81-99); Mean Platelet Vol. 9.6 fl (6.2-12.0); Monocyte# 1.14 X10^3/uL; Monocyte% 5.4 % (0-10); NRBC Flagged by Analyzer 0 % (0-5); Neutrophil # 17.25 X10^3/uL (2.7-7.7); Platelet Count 345 K/mm3 (150-450); RBC Distribution Width CV 14.6 % (11.6-14.6); RBC Distribution Width SD 41.1 fl (35.1-43.9); Red Blood Count 4.54 M/mm3 (4.2-5.4); White Blood Count 21.1 K/mm3 (4.4-11.0)
[2019-12-24 17:51] LABS: International Normalized Ratio 1.2; Prothrombin Time (Protime)PT. 14.9 SECONDS (11.7-14.9)
[2019-12-24] MEDS: 0.9% Normal Saline 1,000 ML 999 ML IV ×3 (17:51→20:06)
[2019-12-24 17:53] LABS: Partial Thromboplast Time 28.5 Seconds (24.1-36.2)
[2019-12-24 17:59] LABS: Albumin, Serum 2.4 g/dL (3.2-5.0); BUN 13 mg/dL (7-18); BUN/Creat Ratio 27.8 RATIO (10-20); Creatinine, Serum 0.47 mg/dL (0.55-1.02); EST Glomerular Filtration Rate 159 mL/min (>60); Est Glom Filt Rate - Afr Amer 192 mL/min (>60); Estimated Creatinine Clearance 193.18 ml/min; Glucose 93 mg/dL (74-106); Protein, Total 6.1 g/dL (6.4-8.2)
[2019-12-24 18:00] LABS: ALB/GLOB Ratio 0.6 RATIO (0.9-2.4); AST(SGOT) 74 U/L (15-37); Alanine Aminotransfer ALT/SGPT 75 U/L (13-56); Alkaline Phosphatase 230 U/L (45-117); Anion Gap 6 (5-15); Calcium,Total 8.4 mg/dL (8.5-10.1); Chloride 103 mmol/L (98-107); Globulin 3.7 g/dL (2.2-4.2); Potassium 3.6 mmol/L (3.5-5.1); Sodium Level 137 mmol/L (136-145)
[2019-12-24 18:06] LABS: Lactic Acid 1.1 mmol/L (0.4-1.9)
[2019-12-24 19:42] LABS: Bacteria 0 SEEN /hpf (None Seen); Mucous, Urine 0 SEEN /hpf (<or=2+); Red Blood Cells-Urine 0 SEEN /hpf (0-5); Squamous Epithelial Cells - UA 0 SEEN /hpf (5-10)
[2019-12-24 19:56] LABS: Color, Urine Yellow (Yellow); Glucose, Dipstick Normal (Normal); Ketone-Dipstick 50 mg/dl (Negative); Leukocyte Esterase-Dipstick 500 /ul (Negative); Nitrite-Dipstick Positive (Negative); Occult Blood-Urine 150 /ul (Negative); Protein-Dipstick 500 mg/dl (Negative); Specific Gravity, Urine 1.015 (1.002-1.030); Urine Bilirubin Dipstick Negative (Negative); Urine Clarity Turbid (Clear); Urine Urobilinogen Normal (Normal)
[2019-12-24 20:03] LABS: White Blood Cells >100 SEEN /hpf (0-5)
--- NOTE | 2019-12-24 20:15 | HP.PCM_ITS ---
History of Present Illness Date of Admission: 12/24/19 Chief Complaint: Wounds The patient is a 39 year old F with a PMH as below who presents from a friend's house with abdominal wall ulceration and surrounding redness with no extending cellulitis as well as purulent drainage from her suprapubic catheter. She has an unfortunate history of having a spinal epidural abscess back in June which led to her being a paraplegic with no mobility in her lower extremities. She does have a significant amount of spasticity but is not very mobile anymore. She is fortunate that she does have usage of her upper extremity. She had been intubated and sent to a residential facility after her transfer to tertiary care level in June. She had not checked in with her aviation safety officer and he came around to see her and noticed that she did not look very well and that for the last 3 or 4 days she is just been feeling fairly malaised and has been getting dehydrated. Denies any fevers or chills. No chest pain or shortness of breath. No significant abdominal pain. Past Medical History Past Medical History (Chronic Problems): Chronic Problems history of left lower tooth abcess (Chronic) Psoriasis (Chronic) Diarrhea (Chronic) Nausea and vomiting (Chronic) Esophageal reflux (Chronic) Allergies No Known Allergies Allergy (Verified 12/24/19 14:32) Home Medications: Ambulatory Orders Medication Instructions Recorded Aspirin [Aspirin, Baby] 1 tab PO DAILY 10/19/19 Bacillus/Protease/Amylas/Lipas 1 cap PO DAILY 10/19/19 [Digest Adv Intensive Bowel Cap] Baclofen 1 tab PO 4X/DAY 10/19/19 Duloxetine HCl 120 mg PO DAILY 10/19/19 Fludrocortisone Acetate [Florinef] 1 tab PO DAILY 10/19/19 Melatonin 5 mg PO QHS 10/19/19 Midodrine HCl 10 mg PO TID 10/19/19 Diazepam [Valium] 5 mg PO Q8H PRN PRN 12/24/19 Oxybutynin Chloride [Oxybutynin 10 mg PO DAILY 12/24/19 Chloride ER] Surgical History: - - suprapubic catheter placement Smoking Status: Current every day smoker Tobacco Use: Cigarettes Alcohol: None 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 Paternal History Items: - - Patient did not provide paternal medical history after several attempts. Review of Systems Constitutional: Reports: Malaise, Fatigue. Denies: Chills, Fever HEENT: Denies: Head Aches, Sinus Congestion, Sinus Drainage Cardiovascular: Denies: Chest Pain, Palpitations Respiratory: Denies: Cough, Shortness of breath at rest, Sputum production Gastrointestinal: Denies: Abdominal Pain, Nausea, Vomiting Genitourinary: Denies: Dysuria Musculoskeletal: Denies: Joint Pain, Joint Tenderness Skin: Reports: Wounds. Denies: Rash Neurological: Denies: Numbness, Tingling, Focal weakness Psychiatric: Denies: Anxiety, Depression Hematologic/ Lymphatic: Denies: Easy Bruising, Easy Bleeding VTE Information - Inpt Only VTE Present on Admission: No Patient Problems: Active and Suspected Problems Sepsis (Acute) Blister of right heel with infection (Acute) Abdominal wall cellulitis (Acute) - Physical Exam Vitals/I&O's: Vital Signs Temp Pulse Resp BP Pulse Ox 97.7 F L 92 20 H 109/66 98 12/24/19 19:52 12/24/19 19:52 12/24/19 19:52 12/24/19 19:52 12/24/19 19:52 Oxygen Delivery Method Room Air Weight: 182 lb 1.629 oz Body Mass Index (BMI) 24.0 Intake and Output for Last 24 Hours 12/22/19 12/23/19 12/24/19 23:59 23:59 23:59 Intake Total 2111 Balance 2111 General: Alert, Oriented x3, Cooperative - Have to reorient several times, - - Tired HEENT: Atraumatic, PERRLA, EOMI, Normocephalic Oral: Dry Mucosa Neck: Supple, No JVD Lungs: Clear to auscultation, Normal air movement, No rhonchi, No wheeze, No rales Cardiovascular: Regular rate, Regular Rhythm, Normal S1, Normal S2, No murmurs Abdomen: Soft, Non Tender, Non-Distended, No Hepato-splenomegaly Extremities: No edema, Capillary Refill Less than 3 Seconds Skin: - - There is excoriation on her right lower abdomen with surrounding redness but no significant signs of cellulitis. Suprapubic Charles has been changed and therefore there is no current purulent drainage. She does also have some breakdown on her right heel Musculoskeletal: Muscle Wasting, - - Lower extremity muscles are spastic, her right leg is bent approximately 90 degrees at the knee and she is unable to straighten it. She does have intermittent spasms Neurological: - - She is to be reoriented several times to answer questions, she is unable to move her lower extremities but she does have mobility in her upper extremities this is consistent with her discharge ability from the outside hospital after her spinal epidural abscess Psych/Mental Status: Flat Affect Laboratory Results 12/24/19 17:28: WBC 21.1 H, RBC 4.54, Hgb 11.0 L, Hct 35.3 L, MCV 77.8 L, MCH 24.2 L, MCHC 31.2 L, RDW Std Deviation 41.1, RDW Coeff of Domonique 14.6, Plt Count 345, MPV 9.6, Immature Gran % (Auto) 1.300 H, Neut % (Auto) 82.0 H, Lymph % (Auto) 11.0 L, [place] % (Auto) 5.4, Eos % (Auto) 0.1, Baso % (Auto) 0.2, Absolute Neuts (auto) 17.3 H, Absolute Lymphs (auto) 2.32, Nucleated RBC % 0 12/24/19 17:28: PT 14.9, INR 1.2, APTT 28.5 12/24/19 17:28: Sodium 137, Potassium 3.6, Chloride 103, Carbon Dioxide 28.0, Anion Gap 6, BUN 13, Creatinine 0.47 L, Estim Creat Clear Calc 193.18, Est GFR (MDRD) Af Amer 192, Est GFR (MDRD) Non-Af 159, BUN/Creatinine Ratio 27.8 H, Glucose 93, Calcium 8.4 L, Total Bilirubin 0.50, AST 74 H, ALT 75 H, Alkaline Phosphatase 230 H, Total Protein 6.1 L, Albumin 2.4 L, Globulin 3.7, Albumin/Globulin Ratio 0.6 L 12/24/19 17:28: Lactic Acid 1.1 12/24/19 19:27: Urine Color Yellow, Urine Clarity Turbid, Urine pH 7.0, Ur Spec ific [place] 1.015, Urine Protein 500 H, Urine Glucose (UA) Normal, Urine Ketones 50 H, Urine Occult Blood 150 H, Urine Nitrite Positive H, Urine Bilirubin Negative, Urine Urobilinogen Normal, Ur Leukocyte Esterase 500 H, Urine RBC 0 SEEN, Urine WBC >100 SEEN, Ur Squamous Epith Cells 0 SEEN, Urine Bacteria 0 SEEN, Urine Mucus 0 SEEN Current Medications Sodium Chloride () 10 - 40 ml IV UD PRN PRN Reason: SALINE FLUSH Assessment/Plan All Active Problems Cellulitis (Acute) Sepsis (Acute) Blister of right heel with infection (Acute) Abdominal wall cellulitis (Acute) 1. Purulent drainage from suprapubic catheter possible UTI with sepsis/abdominal wall ulceration/right heel pressure ulcer -We will obtain a urine culture and start on Zosyn and vancomycin -We will obtain PT/OT for spasticity and continue with her home medications -Consult wound care nurse -Case management for possible placement -IV fluids at 100, she did receive 3 L in the ER -Lactate normal at 1.1 2. Paraplegia secondary to spinal epidural abscess/anxiety/depression -Continue with baclofen -PT/OT -Continue with Valium, and Cymbalta 3. Right lower lobe nodule -This was seen on a previous CT scan, she will need another one in 2 months 4. Elevated LFTs -Her alk phos has been elevated since 2019, her previous labs were in 2013 and it was normal then -We will repeat a CMP in the morning to monitor DVT: Ganesh Code Visit Inpatient E&M: 05860 Init Hosp L3
--- NOTE | 2019-12-24 20:39 | PCM.RX.CS ---
Consult Pharmacy has been consulted to manage selected antiobiotic: Vancomycin Type of Consult: New start Suspected Infection: Sepsis Prior Doses of Antibiotics Received/Current Regimen: VANCOMYCIN 2000MG IV X1 IN ED 12/24/19 @1755 Labs: Sodium 137 mmol/L (136-145) 12/24/19 17:28 Potassium 3.6 mmol/L (3.5-5.1) 12/24/19 17:28 Chloride 103 mmol/L (98-107) 12/24/19 17:28 Carbon Dioxide 28.0 mmol/L (21.0-32.0) 12/24/19 17:28 Anion Gap 6 (5-15) 12/24/19 17:28 BUN 13 mg/dL (7-18) 12/24/19 17:28 Creatinine 0.47 mg/dL (0.55-1.02) L 12/24/19 17:28 Est GFR (MDRD) Af Amer 192 mL/min (>60) 12/24/19 17:28 Est GFR (MDRD) Non-Af 159 mL/min (>60) 12/24/19 17:28 BUN/Creatinine Ratio 27.8 RATIO (10-20) H 12/24/19 17:28 Glucose 93 mg/dL (74-106) 12/24/19 17:28 Weight used for dosin kg Estimated Creatinine Clearance: 193 Goal Trough: 15-20 mcg/mL Pharmacy Plan for Drug Dosing: PLAN/RECOMMENDATIONS 1. Vancomycin 1000mg IV Q8hr to start 12/25/19 @0200 2. Trough prior to 4th total dose per protocol 12/25/19 @1730 3. Pharmacy Service will continue to monitor and adjust dosing as required.
[2019-12-24] MEDS: 0.9% Normal Saline 1,000 ML 100 ML IV (21:46)
[2019-12-24 22:56] LABS: Amphetamine Urine VISTA POSITIVE (<1000 ng/mL); Barbiturate Urine VISTA NEGATIVE (< 200 ng/mL); Benzodiazepine Urine VISTA NEGATIVE (< 200 ng/mL); Cocaine Urine VISTA NEGATIVE (< 300 ng/mL); Ecstacy Urine VISTA NEGATIVE (< 500 ng/mL); Methadone Urine VISTA NEGATIVE (< 300 ng/mL); PCP Urine VISTA NEGATIVE (< 25 ng/mL); THC Urine VISTA POSITIVE (< 50 ng/mL); Vista UDS pH Range 7
[2019-12-25] VITALS (9 sets, daily range): BP systolic 92–112; BP diastolic 54–69; PULSE 79–110; RESP 14–20; TEMP 36.6–37.3; O2SAT 95–98
[2019-12-25] MEDS: Vancomycin IV 1,000 MG/200 ML BAG 200 MG IV ×3 (01:44→18:50)
[2019-12-25] MEDS: 0.9% Saline Lock 10 ML Syringe IV (05:48)
[2019-12-25 05:56] LABS: Absolute Lymphocyte Count 2.12 X10^3/uL (0.83-4.51); Absolute Neutrophil Count 9.2 X10^3/uL (2.0-7.7); Basophil# 0.04 X10^3/uL; Basophil% 0.3 % (0-1); Eosinophil# 0.17 X10^3/uL; Eosinophils% 1.4 % (0-5); Hematocrit 29.5 % (37-47); Hemoglobin 9.1 g/dL (12.0-15.0); Lymphocyte # 2.12 X10^3/ul (4.0); Lymphocyte % 17.2 % (19-41); Mean Corp Hgb Conc 30.8 g/dL (32-36); Mean Corpuscular Hgb 24.2 pg (27.0-32.0); Mean Corpuscular Volume 78.5 fL (81-99); Mean Platelet Vol. 9.4 fl (6.2-12.0); Monocyte% 5.7 % (0-10); NRBC Flagged by Analyzer 0 % (0-5); Neutrophil # 9.19 X10^3/uL (2.7-7.7); Neutrophil % 74.3 % (47-70); Platelet Count 266 K/mm3 (150-450); RBC Distribution Width CV 14.6 % (11.6-14.6); RBC Distribution Width SD 41.6 fl (35.1-43.9); Red Blood Count 3.76 M/mm3 (4.2-5.4); White Blood Count 12.4 K/mm3 (4.4-11.0)
[2019-12-25 06:41] LABS: ALB/GLOB Ratio 0.6 RATIO (0.9-2.4); AST(SGOT) 62 U/L (15-37); Alanine Aminotransfer ALT/SGPT 58 U/L (13-56); Alkaline Phosphatase 171 U/L (45-117); Anion Gap 6 (5-15); BUN 8 mg/dL (7-18); BUN/Creat Ratio 24.9 RATIO (10-20); Calcium,Total 7.8 mg/dL (8.5-10.1); Chloride 110 mmol/L (98-107); Creatinine, Serum 0.32 mg/dL (0.55-1.02); EST Glomerular Filtration Rate 244 mL/min (>60); Est Glom Filt Rate - Afr Amer 296 mL/min (>60); Estimated Creatinine Clearance 283.73 ml/min; Globulin 3.2 g/dL (2.2-4.2); Glucose 77 mg/dL (74-106); Potassium 3.2 mmol/L (3.5-5.1); Protein, Total 5.2 g/dL (6.4-8.2); Sodium Level 141 mmol/L (136-145)
[2019-12-25] MEDS: 0.9% Normal Saline 1,000 ML 100 ML IV ×2 (07:36→17:43)
--- NOTE | 2019-12-25 10:03 | NURSING ---
wound photo: right posterior heel/Achilles
--- NOTE | 2019-12-25 10:05 | NURSING ---
wound photo: right posterior hip/buttock
--- NOTE | 2019-12-25 10:06 | NURSING ---
wound photo: right lateral hip/lower abdomen
--- NOTE | 2019-12-25 10:16 | CASEMGMT ---
SW attempted to meet with patient, however she asked SW to come back as she was trying to sleep. SW will check back later. Elina ISSA MSW
[2019-12-25] MEDS: Fludrocortisone Acetate 0.1 MG Tablet PO (10:44)
[2019-12-25 13:18] LABS: M R Staph aureus DNA By PCR POSITIVE (Negative); Probe Check PASS; Staph aureus DNA By PCR POSITIVE (Negative)
--- NOTE | 2019-12-25 13:20 | CASEMGMT ---
SW spoke with patient. She was still lying in bed in the dark. She did talk with SW a little bit. SW asked her about her comment to the ED SW that she is afraid. She said she isn't being cared for. SW asked if anyone is abusing her and she denied this. SW asked if she felt she needed to go to a [facility] and she said probably. TEODORO told her SW will give her a list of facilities that are in network with her insurance. TEODORO then asked her if she has used any drugs since her last admission. She said, I don't want to. She then started to complain of spasms and did not want to talk anymore. SW let her RN know that she is having spasms. TEODORO then went back and gave patient a list of in network facilities. Elina CHICAS
--- NOTE | 2019-12-25 14:35 | PN_ITS ---
<Anish Mccarty - Last Filed: 12/25/19 14:35> Patient Problems: Active and Suspected Problems Sepsis (Acute) Blister of right heel with infection (Acute) Abdominal wall cellulitis (Acute) Reason for Visit: nonhealing abdominal wounds. Subjective: Pt A/Ox3, however she cannot tell me why she is paraplegic, she cannot tell me how her wounds became worse. No fever/chills. No drainage around the suprapubic. no cp/palp. no sob. Vitals/I&O's: Vital Signs Temp Pulse Resp BP Pulse Ox 98.4 F 97 14 112/69 98 12/25/19 14:03 12/25/19 14:03 12/25/19 14:03 12/25/19 14:03 12/25/19 14:03 Oxygen Delivery Method Room Air Weight: 182 lb 1.629 oz Body Mass Index (BMI) 24.0 Intake and Output for Last 24 Hours 12/23/19 12/24/19 12/25/19 23:59 23:59 23:59 Intake Total 3951.38 / 3951.38 1231.25 / 1231.25 Output Total 450 / 450 1175 / 1175 Balance 3501.38 / 3501.38 56.25 / 56.25 General: Alert, Oriented x3, Cooperative HEENT: Atraumatic, PERRLA, EOMI, Normocephalic Neck: Supple, No JVD, Negative Carotid Bruits Lungs: Clear to auscultation, Normal air movement Cardiovascular: Regular rate, No murmurs Abdomen: Bowel Sounds Present, Soft, Non Tender Extremities: No edema, Capillary Refill Less than 3 Seconds Skin: No rashes, No breakdown, - - wounds on stomach, heel wound Musculoskeletal: No Tenderness to Palpation of Joints or Extremities Neurological: Cranial nerves II-XII grossly intact Psych/Mental Status: Flat Affect, Alert and oriented to time, place, person, mood and affect Microbiology Past 72 Hours 12/24/19 17:00 Wound - Abdominal Gram Stain - Final 12/24/19 17:00 Wound - Abdominal Wound Culture - Preliminary Gram negative leroy Staphylococcus species 12/24/19 19:27 Urine Catheter - Catheter Urine Culture - Preliminary Gram negative leroy Laboratory Results 12/24/19 17:28: WBC 21.1 H, RBC 4.54, Hgb 11.0 L, Hct 35.3 L, MCV 77.8 L, MCH 24.2 L, MCHC 31.2 L, RDW Std Deviation 41.1, RDW Coeff of Domonique 14.6, Plt Count 345, MPV 9.6, Immature Gran % (Auto) 1.300 H, Neut % (Auto) 82.0 H, Lymph % (Auto) 11.0 L, [place] % (Auto) 5.4, Eos % (Auto) 0.1, Baso % (Auto) 0.2, Absolute Neuts (auto) 17.3 H, Absolute Lymphs (auto) 2.32, Nucleated RBC % 0 12/24/19 17:28: PT 14.9, INR 1.2, APTT 28.5 12/24/19 17:28: Sodium 137, Potassium 3.6, Chloride 103, Carbon Dioxide 28.0, Anion Gap 6, BUN 13, Creatinine 0.47 L, Estim Creat Clear Calc 193.18, Est GFR (MDRD) Af Amer 192, Est GFR (MDRD) Non-Af 159, BUN/Creatinine Ratio 27.8 H, Glucose 93, Calcium 8.4 L, Total Bilirubin 0.50, AST 74 H, ALT 75 H, Alkaline Phosphatase 230 H, Total Protein 6.1 L, Albumin 2.4 L, Globulin 3.7, Albumin/Globulin Ratio 0.6 L 12/24/19 17:28: Lactic Acid 1.1 12/24/19 19:27: Urine Color Yellow, Urine Clarity Turbid, Urine pH 7.0, Ur Specific [place] 1.015, Urine Protein 500 H, Urine Glucose (UA) Normal, Urine Ketones 50 H, Urine Occult Blood 150 H, Urine Nitrite Positive H, Urine Bilirubin Negative, Urine Urobilinogen Normal, Ur Leukocyte Esterase 500 H, Urine RBC 0 SEEN, Urine WBC >100 SEEN, Ur Squamous Epith Cells 0 SEEN, Urine Bacteria 0 SEEN, Urine Mucus 0 SEEN 12/24/19 22:30: Urine Opiates Screen NEGATIVE, Urine Methadone Screen NEGATIVE, Ur Barbiturates Screen NEGATIVE, Ur Phencyclidine Scrn NEGATIVE, Ur Amphetamines Screen POSITIVE H, U Methamphetamin-MDMA NEGATIVE, U Benzodiazepines Scrn NEGATIVE, Urine Cocaine Screen NEGATIVE, U Cannabinoids Screen POSITIVE H, Ur Drug Screen Comment 12/25/19 05:40: WBC 12.4 H, RBC 3.76 L, Hgb 9.1 L, Hct 29.5 L, MCV 78.5 L, MCH 24.2 L, MCHC 30.8 L, RDW Std Deviation 41.6, RDW Coeff of Domonique 14.6, Plt Count 266, MPV 9.4, Immature Gran % (Auto) 1.100 H, Neut % (Auto) 74.3 H, Lymph % (Auto) 17.2 L, [place] % (Auto) 5.7, Eos % (Auto) 1.4, Baso % (Auto) 0.3, Absolute Neuts (auto) 9.2 H, Absolute Lymphs (auto) 2.12, Nucleated RBC % 0 12/25/19 05:40: Sodium 141, Potassium 3.2 L, Chloride 110 H, Carbon Dioxide 25.0, Anion Gap 6, BUN 8, Creatinine 0.32 L, Estim Creat Clear Calc 283.73, Est GFR (MDRD) Af Amer 296, Est GFR (MDRD) Non-Af 244, BUN/Creatinine Ratio 24.9 H, Glucose 77, Calcium 7.8 L, Total Bilirubin 0.50, AST 62 H, ALT 58 H, Alkaline Phosphatase 171 H, Total Protein 5.2 L, Albumin 2.0 L, Globulin 3.2, Albumin/Globulin Ratio 0.6 L 12/25/19 : S.aureus Protein A PCR POSITIVE H, MRSA (PCR) POSITIVE H Current Medications Acetaminophen (Tylenol) 650 mg PO Q6H PRN PRN PRN Reason: Pain Score 1-10/Temp > 100.7 F Collagenase (Santyl) 1 applic TOPICAL DAILY [facility]; Protocol Last Admin: 12/25/19 12:11 Dose: Not Given Documented by: Enoxaparin Sodium (Lovenox) 40 mg SC DAILY [facility] Last Admin: 12/25/19 13:33 Dose: Not Given Documented by: Fludrocortisone Acetate (Florinef) 0.1 mg PO DAILY@0800 [facility] Last Admin: 12/25/19 10:44 Dose: 0.1 mg Documented by: Sodium Chloride () 1,000 mls @ 100 mls/hr IV .Q10H [facility] Last Admin: 12/25/19 07:36 Dose: 100 mls/hr Documented by: Piperacillin Sod/Tazobactam (Sod 3.375 gm/ Sodium Chloride) 50 mls @ 12.5 mls/hr IV Q8 [facility] Last Admin: 12/25/19 13:48 Dose: 12.5 mls/hr Documented by: Vancomycin IV Pharmacy to Dose (1 ea/ Sodium Chloride) 500 mls @ 250 mls/hr IV PRN PRN; Protocol PRN Reason: Rx to Dose Vancomycin HCl (Vancomycin) 1,000 mg in 200 mls @ 200 mls/hr IV Q8H [facility] Last Infusion: 12/25/19 10:51 Dose: Infused Documented by: Nutritional Formula (Jake - [place] Flavor) 1 packet PO BIDCM [facility] Ondansetron HCl (Zofran) 4 mg IV Q8H PRN PRN PRN Reason: NAUSEA/VOMITING Capacity - Capacity Assessment Tool Can the patient make a choice & communicate that choice?: Yes STROKE Vital Signs/Narrative: Vital Signs Temp Pulse Resp BP Pulse Ox 12/25/19 14:03 98.4 F 97 14 112/69 98 Medical Necessity - Tobacco Use Smoking Status: Current every day smoker Tobacco Use: Cigarettes Assessment/Plan All Active Problems Cellulitis (Acute) Sepsis (Acute) Blister of right heel with infection (Acute) Abdominal wall cellulitis (Acute) 1. Nonhealing abd wall wounds, UTI (2/2 suprapubic cath)- vanc zosyn. Wound care following. photos on chart. C/s to Dr. Richard. WBC improved. + MRSA. Cx prelim staph and possibly proteus. LA neg. Will need close wound care follow up. Urine cx shows GNR. 2. Microcytic anemia - check iron/tibc. 3. 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 resume baclofen if BP stable 4. Hypotension - resume florinef. may need midodrine resumed as well. 5. RLL nodule - o/p repeat imaging. 6. Abn lfts - improving. 7. Anx/depression - duloxetine, valium DVT ppx: lovenox DC planning: possibly needs SNF. This patient was seen by Anish Mccarty PA-C under the supervision of Doctor Alma Rosa. <Alma Rosa,[place] - Last Filed: 12/25/19 16:22> Vitals/I&O's: Vital Signs Temp Pulse Resp BP Pulse Ox 98.4 F 98 14 112/69 98 12/25/19 14:03 12/25/19 15:00 12/25/19 14:03 12/25/19 14:03 12/25/19 14:03 Oxygen Delivery Method Room Air Weight: 82.6 kg Body Mass Index (BMI) 24.0 Intake and Output for Last 24 Hours 12/23/19 12/24/19 12/25/19 23:59 23:59 23:59 Intake Total 3951.38 / 3951.38 1231.25 / 1231.25 Output Total 450 / 450 1175 / 1175 Balance 3501.38 / 3501.38 56.25 / 56.25 Microbiology Past 72 Hours 12/24/19 17:00 Wound - Abdominal Gram Stain - Final 12/24/19 17:00 Wound - Abdominal Wound Culture - Preliminary Gram negative leroy Staphylococcus species 12/24/19 19:27 Urine Catheter - Catheter Urine Culture - Preliminary Gram negative leroy Laboratory Results 12/24/19 17:28: WBC 21.1 H, RBC 4.54, Hgb 11.0 L, Hct 35.3 L, MCV 77.8 L, MCH 24.2 L, MCHC 31.2 L, RDW Std Deviation 41.1, RDW Coeff of Domonique 14.6, Plt Count 3 45, MPV 9.6, Immature Gran % (Auto) 1.300 H, Neut % (Auto) 82.0 H, Lymph % (Auto) 11.0 L, [place] % (Auto) 5.4, Eos % (Auto) 0.1, Baso % (Auto) 0.2, Absolute Neuts (auto) 17.3 H, Absolute Lymphs (auto) 2.32, Nucleated RBC % 0 12/24/19 17:28: PT 14.9, INR 1.2, APTT 28.5 12/24/19 17:28: Sodium 137, Potassium 3.6, Chloride 103, Carbon Dioxide 28.0, Anion Gap 6, BUN 13, Creatinine 0.47 L, Estim Creat Clear Calc 193.18, Est GFR ( MDRD) Af Amer 192, Est GFR (MDRD) Non-Af 159, BUN/Creatinine Ratio 27.8 H, Glucose 93, Calcium 8.4 L, Total Bilirubin 0.50, AST 74 H, ALT 75 H, Alkaline Phosphatase 230 H, Total Protein 6.1 L, Albumin 2.4 L, Globulin 3.7, Albumin/Globulin Ratio 0.6 L 12/24/19 17:28: Lactic Acid 1.1 12/24/19 19:27: Urine Color Yellow, Urine Clarity Turbid, Urine pH 7.0, Ur Specific [place] 1.015, Urine Protein 500 H, Urine Glucose (UA) Normal, Urine Ketones 50 H, Urine Occult Blood 150 H, Urine Nitrite Positive H, Urine Bilirubin Negative, Urine Urobilinogen Normal, Ur Leukocyte Esterase 500 H, Urine RBC 0 SEEN, Urine WBC >100 SEEN, Ur Squamous Epith Cells 0 SEEN, Urine Bacteria 0 SEEN, Urine Mucus 0 SEEN 12/24/19 22:30: Urine Opiates Screen NEGATIVE, Urine Methadone Screen NEGATIVE, Ur Barbiturates Screen NEGATIVE, Ur Phencyclidine Scrn NEGATIVE, Ur Amphetamines Screen POSITIVE H, U Methamphetamin-MDMA NEGATIVE, U Benzodiazepines Scrn NEGATIVE, Urine Cocaine Screen NEGATIVE, U Cannabinoids Screen POSITIVE H, Ur Drug Screen Comment 12/25/19 05:40: WBC 12.4 H, RBC 3.76 L, Hgb 9.1 L, Hct 29.5 L, MCV 78.5 L, MCH 24.2 L, MCHC 30.8 L, RDW Std Deviation 41.6, RDW Coeff of Domonique 14.6, Plt Count 266, MPV 9.4, Immature Gran % (Auto) 1.100 H, Neut % (Auto) 74.3 H, Lymph % (Auto) 17.2 L, [place] % (Auto) 5.7, Eos % (Auto) 1.4, Baso % (Auto) 0.3, Absolute Neuts (auto) 9.2 H, Absolute Lymphs (auto) 2.12, Nucleated RBC % 0 12/25/19 05:40: Sodium 141, Potassium 3.2 L, Chloride 110 H, Carbon Dioxide 25.0, Anion Gap 6, BUN 8, Creatinine 0.32 L, Estim Creat Clear Calc 283.73, Est GFR (MDRD) Af Amer 296, Est GFR (MDRD) Non-Af 244, BUN/Creatinine Ratio 24.9 H, Glucose 77, Calcium 7.8 L, Total Bilirubin 0.50, AST 62 H, ALT 58 H, Alkaline Phosphatase 171 H, Total Protein 5.2 L, Albumin 2.0 L, Globulin 3.2, Albumin/Globulin Ratio 0.6 L 12/25/19 05:40: Iron 16 L, TIBC 193 L, Iron Saturation 8.3 L 12/25/19 : S.aureus Protein A PCR POSITIVE H, MRSA (PCR) POSITIVE H Current Medications Acetaminophen (Tylenol) 650 mg PO Q6H PRN PRN PRN Reason: Pain Score 1-10/Temp > 100.7 F Collagenase (Santyl) 1 applic TOPICAL DAILY [facility]; Protocol Last Admin: 12/25/19 12:11 Dose: Not Given Documented by: Enoxaparin Sodium (Lovenox) 40 mg SC DAILY [facility] Last Admin: 12/25/19 13:33 Dose: Not Given Documented by: Fludrocortisone Acetate (Florinef) 0.1 mg PO DAILY@0800 [facility] Last Admin: 12/25/19 10:44 Dose: 0.1 mg Documented by: Sodium Chloride () 1,000 mls @ 100 mls/hr IV .Q10H [facility] Last Admin: 12/25/19 07:36 Dose: 100 mls/hr Documented by: Piperacillin Sod/Tazobactam (Sod 3.375 gm/ Sodium Chloride) 50 mls @ 12.5 mls/hr IV Q8 [facility] Last Admin: 12/25/19 13:48 Dose: 12.5 mls/hr Documented by: Vancomycin IV Pharmacy to Dose (1 ea/ Sodium Chloride) 500 mls @ 250 mls/hr IV PRN PRN; Protocol PRN Reason: Rx to Dose Vancomycin HCl (Vancomycin) 1,000 mg in 200 mls @ 200 mls/hr IV Q8H [facility] Last Infusion: 12/25/19 10:51 Dose: Infused Documented by: Nutritional Formula (Jake - [place] Flavor) 1 packet PO BIDCM [facility] Ondansetron HCl (Zofran) 4 mg IV Q8H PRN PRN PRN Reason: NAUSEA/VOMITING STROKE Vital Signs/Narrative: Vital Signs Temp Pulse Resp BP Pulse Ox 12/25/19 15:00 98 12/25/19 14:03 98.4 F 97 14 112/69 98 Assessment/Plan This patient was seen in conjunction with DEMOND Douglas. I have independently interviewed and examined the patient and reviewed pertinent historical, laboratory, and other data. Please refer to DEMOND Douglas note for his patient's presentation, findings, and recommendations. I have reviewed and his note and concur with his documentation Patient was seen and examined. Appeared lethargic. Refused to answer questions. Pain is controlled. Seen pictures from the wound RN as wounds have been dressed. Denies any fever or chills. Cultures growing gram-negative leroy, staph species, urine cultures also growing gram-negative leroy. Iron profile shows mxed picture -iron deficiency anemia with anemia of chronic disease Physical Exam: Gen: Looks in some discomfort, not pale, not jaundiced CVS:HS I +II, regular, no murmurs RESP: Diminished at lung bases GI: BS present and normal, soft, nontender, no palpable organs EXT:No edema ASSESSMENT: 1. Hypokalemia 2. Sepsis secondary to infected abdominal wound, possible UTI, right heel pressure ulcer 3. 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 Anxiety/depression 5. Lung nodule 6. Anemia, likely secondary to hemodilution Plan: IV Venofer x1 Plastic surgery consult Infectious disease consult Continue on IV Zosyn and vancomycin Continue wound care Inpatient E&M: 28921 Subs Hosp L2
--- NOTE | 2019-12-25 14:43 | CHAPLAIN ---
knocked on door and introduced self to patient who is behind curtain with totally darkened room; patient states she does not want to talk; offered to return and give support when pt desires; RN states that patient has been withdrawn and has refused contact with people
[2019-12-25 15:30] LABS: Iron 16 ug/dL (50-170); Iron Binding Capacity,Total 193 ug/dL (250-450); PERCENT IRON SATURATION 8.3 % (15.0-55.0)
[2019-12-25] MEDS: diazePAM 2 MG Tablet PO ×2 (18:02→22:12)
[2019-12-25] MEDS: DULoxetine Hcl 60 MG Capsule 120 MG PO (18:23)
[2019-12-25] MEDS: Baclofen 10 MG Tablet 20 MG PO ×2 (18:23→22:12)
--- NOTE | 2019-12-25 18:32 | PCM.CONS.GEN ---
Reason for Consult Date of Consultation: 12/25/19 Reason for Consultation: Nonhealing infected MRSA ulcers cluster right abdominal wall and pressure injury right trochanteric area. REFERRING PHYSICIAN: Dr. Pugh. PUBLIC POLICY MEDIATOR: Dr. Richard. History of Present Illness: The patient is a 39 year old F with a history of paraplegia from a spinal abscess and a history of drug use was admitted for increasing pain and redness in her right abdominal wall and right trochanteric area from ulceration. The details are sketchy how she developed this ulceration. Upon admission, her WBC was 21.1. It has since improved to 12.4. Her Lactate was 1.1. She was started on Vancomycin and Zosyn. Initial wound cultures showed Gram negative rods and Staphylococcus species. MRSA Wound DNA by OR was positive. Her urine culture showed Gram negative rods. Wound care was started with Santyl. I was asked to evaluate this patient for surgical options for treatment. Past Medical History Past Medical History (Chronic Problems): Chronic Problems Smoker (Chronic) History of intravenous drug abuse (Chronic) Heroin Paraplegia (Chronic) history of left lower tooth abcess (Chronic) Psoriasis (Chronic) Diarrhea (Chronic) Nausea and vomiting (Chronic) Esophageal reflux (Chronic) Allergies No Known Allergies Allergy (Verified 12/24/19 14:32) Home Medications: Ambulatory Orders Medication Instructions Recorded Aspirin [Aspirin, Baby] 1 tab PO DAILY 10/19/19 Bacillus/Protease/Amylas/Lipas 1 cap PO DAILY 10/19/19 [Digest Adv Intensive Bowel Cap] Baclofen 1 tab PO 4X/DAY 10/19/19 Duloxetine HCl 120 mg PO DAILY 10/19/19 Fludrocortisone Acetate [Florinef] 1 tab PO DAILY 10/19/19 Melatonin 5 mg PO QHS 10/19/19 Midodrine HCl 10 mg PO TID 10/19/19 Diazepam [Valium] 5 mg PO Q8H PRN PRN 12/24/19 Oxybutynin Chloride [Oxybutynin 10 mg PO DAILY 12/24/19 Chloride ER] Surgical History: - - suprapubic catheter placement Smoking Status: Current every day smoker Tobacco Use: Cigarettes Alcohol: None 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 Paternal History Items: - - Patient did not provide paternal medical history after several attempts. Review of Systems Comment: Constitutional: Reports: Malaise, Fatigue. Denies: Chills, Fever. HEENT: Denies: Head Aches, Sinus Congestion, Sinus Drainage. Cardiovascular: Denies: Chest Pain, Palpitations. Respiratory: Denies: Cough, Shortness of breath at rest, Sputum production. Gastrointestinal: Denies: Abdominal Pain, Nausea, Vomiting. Genitourinary: Denies: Dysuria. Musculoskeletal: Denies: Joint Pain, Joint Tenderness. Skin: Reports: Wounds. Denies: Rash. Neurological: Denies: Numbness, Tingling, Focal weakness. Psychiatric: Denies: Anxiety, Depression. Hematologic/ Lymphatic: Denies: Easy Bruising, Easy Bleeding Patient Problems: Active and Suspected Problems Sepsis (Acute) Blister of right heel with infection (Acute) Abdominal wall cellulitis (Acute) - Physical Exam Vitals/I&O's: General: Alert, Oriented x3, Cooperative. HEENT: PERRLA, EOMI. Oral: Dry Mucosa Neck: Supple, Nontender. No cervical adenopathy. Lungs: Clear to auscultation. Cardiovascular: Regular rate, Regular Rhythm. Abdomen: Soft, Non-Distended. Suprapubic catheter in place. Extremities: No edema, Capillary Refill Less than 3 Seconds Skin: - - There is a painful nonhealing ulcers cluster right abdominal wall. Some exudate present. Some hypergranulation tissue present. Some fat necrosis slough present. No purulent drainage. No fluctuance. Some redness present. Measures 3 x 15 cm. There is a pressure injury ulceration right trochanteric area. Some exudate present. Some hypergranulation tissue present. Some fat necrosis slough present. No purulent drainage. No fluctuance. Some redness present. Stage III pressure injury. Measures 3 x 4 cm. Musculoskeletal: Muscle Wasting, - - Lower extremity muscles are spastic, her right leg is bent approximately 90 degrees at the knee and she is unable to straighten it. She does have intermittent spasms Neurological: - - CN II-XII grossly intact. Psych/Mental Status: Flat Affect Vital Signs Temp Pulse Resp BP Pulse Ox 98.4 F 98 14 112/69 98 12/25/19 14:03 12/25/19 15:00 12/25/19 14:03 12/25/19 14:03 12/25/19 14:03 Oxygen Delivery Method Room Air Weight: 182 lb 1.629 oz Body Mass Index (BMI) 24.0 Intake and Output for Last 24 Hours 12/23/19 12/24/19 12/25/19 23:59 23:59 23:59 Intake Total 3951.38 / 3951.38 2276.25 / 2276.25 Output Total 450 / 450 1175 / 1175 Balance 3501.38 / 3501.38 1101.25 / 1101.25 Microbiology Past 72 Hours 12/24/19 17:00 Wound - Abdominal Gram Stain - Final 12/24/19 17:00 Wound - Abdominal Wound Culture - Preliminary Gram negative leroy Staphylococcus species 12/24/19 19:27 Urine Catheter - Catheter Urine Culture - Preliminary Gram negative leroy Laboratory Results 12/24/19 19:27: Urine Color Yellow, Urine Clarity Turbid, Urine pH 7.0, Ur Specific [place] 1.015, Urine Protein 500 H, Urine Glucose (UA) Normal, Urine Ketones 50 H, Urine Occult Blood 150 H, Urine Nitrite Positive H, Urine Bilirubin Negative, Urine Urobilinogen Normal, Ur Leukocyte Esterase 500 H, Urine RBC 0 SEEN, Urine WBC >100 SEEN, Ur Squamous Epith Cells 0 SEEN, Urine Bacteria 0 SEEN, Urine Mucus 0 SEEN 12/24/19 22:30: Urine Opiates Screen NEGATIVE, Urine Methadone Screen NEGATIVE, Ur Barbiturates Screen NEGATIVE, Ur Phencyclidine Scrn NEGATIVE, Ur Amphetamines Screen POSITIVE H, U Methamphetamin-MDMA NEGATIVE, U Benzodiazepines Scrn NEGATIVE, Urine Cocaine Screen NEGATIVE, U Cannabinoids Screen POSITIVE H, Ur Drug Screen Comment 12/25/19 05:40: WBC 12.4 H, RBC 3.76 L, Hgb 9.1 L, Hct 29.5 L, MCV 78.5 L, MCH 24.2 L, MCHC 30.8 L, RDW Std Deviation 41.6, RDW Coeff of Domonique 14.6, Plt Count 266, MPV 9.4, Immature Gran % (Auto) 1.100 H, Neut % (Auto) 74.3 H, Lymph % (Auto) 17.2 L, Rogers % (Auto) 5.7, Eos % (Auto) 1.4, Baso % (Auto) 0.3, Absolute Neuts (auto) 9.2 H, Absolute Lymphs (auto) 2.12, Nucleated RBC % 0 12/25/19 05:40: Sodium 141, Potassium 3.2 L, Chloride 110 H, Carbon Dioxide 25.0, Anion Gap 6, BUN 8, Creatinine 0.32 L, Estim Creat Clear Calc 283.73, Est GFR (MDRD) Af Amer 296, Est GFR (MDRD) Non-Af 244, BUN/Creatinine Ratio 24.9 H, Glucose 77, Calcium 7.8 L, Total Bilirubin 0.50, AST 62 H, ALT 58 H, Alkaline Phosphatase 171 H, Total Protein 5.2 L, Albumin 2.0 L, Globulin 3.2, Albumin/Globulin Ratio 0.6 L 12/25/19 05:40: Iron 16 L, TIBC 193 L, Iron Saturation 8.3 L 12/25/19 : S.aureus Protein A PCR POSITIVE H, MRSA (PCR) POSITIVE H Current Medications Acetaminophen (Tylenol) 650 mg PO Q6H PRN PRN PRN Reason: Pain Score 1-10/Temp > 100.7 F Baclofen (Lioresal) 20 mg PO 4X/DAY [facility] Last Admin: 12/25/19 18:23 Dose: 20 mg Documented by: Collagenase (Santyl) 1 applic TOPICAL DAILY [facility]; Protocol Last Admin: 12/25/19 12:11 Dose: Not Given Documented by: Diazepam (Valium) 2 mg PO TID PRN PRN PRN Reason: ANXIETY Last Admin: 12/25/19 18:02 Dose: 2 mg Documented by: Duloxetine HCl (Cymbalta) 120 mg PO DAILY [facility] Last Admin: 12/25/19 18:23 Dose: 120 mg Documented by: Enoxaparin Sodium (Lovenox) 40 mg SC DAILY [facility] Last Admin: 12/25/19 13:33 Dose: Not Given Documented by: Fludrocortisone Acetate (Florinef) 0.1 mg PO DAILY@0800 [facility] Last Admin: 12/25/19 10:44 Dose: 0.1 mg Documented by: Sodium Chloride () 1,000 mls @ 100 mls/hr IV .Q10H [facility] Last Infusion: 12/25/19 18:10 Dose: 0 mls/hr Documented by: Piperacillin Sod/Tazobactam (Sod 3.375 gm/ Sodium Chloride) 50 mls @ 12.5 mls/hr IV Q8 [facility] Last Admin: 12/25/19 13:48 Dose: 12.5 mls/hr Documented by: Vancomycin IV Pharmacy to Dose (1 ea/ Sodium Chloride) 500 mls @ 250 mls/hr IV PRN PRN; Protocol PRN Reason: Rx to Dose Vancomycin HCl (Vancomycin) 1,000 mg in 200 mls @ 200 mls/hr IV Q8H [facility] Last Infusion: 12/25/19 10:51 Dose: Infused Documented by: Nutritional Formula (Jake - Kidder Flavor) 1 packet PO BIDCM [facility] Last Admin: 12/25/19 17:43 Dose: Not Given Documented by: Ondansetron HCl (Zofran) 4 mg IV Q8H PRN PRN PRN Reason: NAUSEA/VOMITING Assessment/Plan All Active Problems Pressure 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 Nonhealing infected MRSA ulcers cluster right abdominal wall. 2. Pressure injury ulcer right trochanteric area, Stage III. 3. MRSA. 4. UTI. 5. Sepsis. 6. Paraplegia. 7. History of IV drug use with Heroin. 8. Smoker. Continue Vancomycin and Zosyn. Continue Santyl wound care. There is a lot of bioburden, senescent cells, and devitalized tissue present. She would benefit from an operative debridement and excision of this tissue and associated fat necrosis. Doubt it extends to the underlying fascia. Would debride both the right abdominal wall and right trochanteric areas. Would send tissue to Pathology for analysis to rule out carcinoma and to Microbiology for culture. A positive culture may necessitate antibiotic modification. Postop wound care will be with the VAC. Home Health can get involved to assist with the VAC changes at home. Depending on how stable her home situation is, she may benefit from a short stay at an ECF because of the complex wound care with the VAC as well as probable need for IV antibiotics. The patient is initially resistant to any surgical procedure. I discussed with her that it is not an emergency. She can think about it and continue wound care. She can followup at the Wound Center to monitor the wound. Can then have further discussions at the Wound Center regarding operative intervention. It is doubtful it will heal without an operative debridement. After surgery, during the use of the VAC, if the patient gets tired of the wound care, can proceed with delayed complex secondary wound closure of the abdominal wall wound and skin grafting of the right trochanteric wound. Anticipate increased metabolic demands from the wounds and from the infection. Will check a Prealbumin and encourage nutritional supplementation with protein to help the healing process. Patient was informed of the risks and complications of the procedure including alternatives to surgery. These were discussed with the patient personally. Patient voices understanding and wishes to think about surgery and will followup at the Wound Center. If she changes her mind and is still in the hospital over the next few days, can always proceed with surgery early next week. Otherwise can followup at the Wound Center. Encouraged patient to stop smoking as it may have deleterious effects on wound healing. Inpatient E&M: 19864 Init Hosp L2 - ICD-10 - L98.492, A49.02, L89.213, N39.0, A41.9, G82.20, F19.11, F17.200
[2019-12-25 19:39] LABS: Vancomycin, Trough Level 12.3 ug/mL (5.0-15.0)
--- NOTE | 2019-12-25 20:55 | PCM.RX.CS ---
Consult Pharmacy has been consulted to manage selected antiobiotic: Vancomycin Type of Consult: Follow-up Suspected Infection: Sepsis Prior Doses of Antibiotics Received/Current Regimen: VANCOMYCIN 1000MG IV @ 0936 Labs: Sodium 141 mmol/L (136-145) 12/25/19 05:40 Potassium 3.2 mmol/L (3.5-5.1) L 12/25/19 05:40 Chloride 110 mmol/L (98-107) H 12/25/19 05:40 Carbon Dioxide 25.0 mmol/L (21.0-32.0) 12/25/19 05:40 Anion Gap 6 (5-15) 12/25/19 05:40 BUN 8 mg/dL (7-18) 12/25/19 05:40 Creatinine 0.32 mg/dL (0.55-1.02) L 12/25/19 05:40 Est GFR (MDRD) Af Amer 296 mL/min (>60) 12/25/19 05:40 Est GFR (MDRD) Non-Af 244 mL/min (>60) 12/25/19 05:40 BUN/Creatinine Ratio 24.9 RATIO (10-20) H 12/25/19 05:40 Glucose 77 mg/dL (74-106) 12/25/19 05:40 Vancomycin Trough 12.3 ug/mL (5.0-15.0) 12/25/19 18:40 Microbiology: Microbiology 12/24/19 17:00 Wound - Abdominal Gram Stain - Final 12/24/19 17:00 Wound - Abdominal Wound Culture - Preliminary Gram negative leroy Staphylococcus species 12/24/19 19:27 Urine Catheter - Catheter Urine Culture - Preliminary Gram negative leroy Estimated Creatinine Clearance: 284 Goal Trough: 15-20 mcg/mL Pharmacy Plan for Drug Dosin. Trough was drawn 9 hours after last dose and was subtherapeutic at 12.3 mg/dL 2. Level was probably slightly higher at 8 hours when trough was supposed to be drawn, but I will increase the dose to 1250mg Q8H starting 12/25 @ 0300 - 1000mg bag has already been hung 3. Trough scheduled prior to 4th dose of new regimen 4. Pharmacy Service will continue to monitor and adjust dosing as required. Labs to be done on [date and time ordered]: 12/27/2019 @ 0230
[2019-12-25] MEDS: Acetaminophen 325 MG Tablet 650 MG PO (22:12)
--- NOTE | 2019-12-25 22:34 | NURSING ---
PT ASKS TO NOT BE AWOKEN DURING THE NIGHT FOR CARE.
[2019-12-26] VITALS (9 sets, daily range): BP systolic 101–119; BP diastolic 55–73; PULSE 61–94; RESP 16–20; TEMP 36.3–37.1; O2SAT 96–99
--- NOTE | 2019-12-26 06:14 | NURSING ---
PT REFUSES PERIPHERAL LINE DRAWS AT THIS TIME. AM LABS DRAWN FROM CENTRAL LINE PER PROTOCOL.
[2019-12-26 06:23] LABS: Absolute Lymphocyte Count 1.95 X10^3/uL (0.83-4.51); Absolute Neutrophil Count 6.2 X10^3/uL (2.0-7.7); Basophil# 0.03 X10^3/uL; Basophil% 0.3 % (0-1); Eosinophil# 0.16 X10^3/uL; Eosinophils% 1.8 % (0-5); Hematocrit 28.9 % (37-47); Lymphocyte # 1.95 X10^3/ul (4.0); Lymphocyte % 21.7 % (19-41); Mean Corp Hgb Conc 31.1 g/dL (32-36); Mean Corpuscular Hgb 24.3 pg (27.0-32.0); Mean Corpuscular Volume 77.9 fL (81-99); Mean Platelet Vol. 9.9 fl (6.2-12.0); Monocyte# 0.56 X10^3/uL; Monocyte% 6.2 % (0-10); NRBC Flagged by Analyzer 0 % (0-5); Neutrophil # 6.21 X10^3/uL (2.7-7.7); Neutrophil % 69.1 % (47-70); Platelet Count 252 K/mm3 (150-450); RBC Distribution Width CV 14.4 % (11.6-14.6); RBC Distribution Width SD 40.8 fl (35.1-43.9); Red Blood Count 3.71 M/mm3 (4.2-5.4)
[2019-12-26 06:42] LABS: ALB/GLOB Ratio 0.6 RATIO (0.9-2.4); AST(SGOT) 49 U/L (15-37); Alanine Aminotransfer ALT/SGPT 49 U/L (13-56); Alkaline Phosphatase 155 U/L (45-117); Anion Gap 4 (5-15); BUN 4 mg/dL (7-18); BUN/Creat Ratio 13.5 RATIO (10-20); Calcium,Total 7.6 mg/dL (8.5-10.1); Chloride 113 mmol/L (98-107); EST Glomerular Filtration Rate 268 mL/min (>60); Est Glom Filt Rate - Afr Amer 325 mL/min (>60); Estimated Creatinine Clearance 302.65 ml/min; Globulin 3.2 g/dL (2.2-4.2); Glucose 75 mg/dL (74-106); Potassium 3.1 mmol/L (3.5-5.1); Protein, Total 5.2 g/dL (6.4-8.2); Sodium Level 143 mmol/L (136-145)
[2019-12-26] MEDS: DULoxetine Hcl 60 MG Capsule 120 MG PO (08:58)
[2019-12-26] MEDS: Fludrocortisone Acetate 0.1 MG Tablet PO (08:58)
[2019-12-26] MEDS: Baclofen 10 MG Tablet 20 MG PO ×4 (08:58→23:16)
[2019-12-26] MEDS: Acetaminophen 325 MG Tablet 650 MG PO ×2 (08:58→15:04)
[2019-12-26] MEDS: diazePAM 2 MG Tablet PO ×3 (08:59→23:16)
[2019-12-26] MEDS: 0.9% Normal Saline 1,000 ML 100 ML IV (09:02)
[2019-12-26 09:16] LABS: Magnesium 1.6 mg/dL (1.6-2.6); Phosphorus 2.3 mg/dL (2.5-4.9)
[2019-12-26] MEDS: Collagenase 30gm Tube 1 APPLIC TOPICAL (11:35)
--- NOTE | 2019-12-26 13:14 | PN_ITS ---
<Anish Mccarty - Last Filed: 12/26/19 13:14> Patient Problems: Active and Suspected Problems Sepsis (Acute) Blister of right heel with infection (Acute) Abdominal wall cellulitis (Acute) Reason for Visit: nonhealing wounds Subjective: Pt without abdominal pain, denies pain at wounds, denies back or leg pain. She states she has some tightness in her legs and back but no pain. No fevers/chills. No LH/dizziness. Panic from last night is resolved. Vitals/I&O's: Vital Signs Temp Pulse Resp BP Pulse Ox 98.6 F 86 20 H 110/69 96 12/26/19 10:13 12/26/19 10:13 12/26/19 10:13 12/26/19 10:13 12/26/19 10:13 Oxygen Delivery Method Room Air Weight: 182 lb 1.629 oz Body Mass Index (BMI) 24.0 Intake and Output for Last 24 Hours 12/24/19 12/25/19 12/26/19 23:59 23:59 23:59 Intake Total 3951.38 / 3951.38 2636.25 / 2636.25 2236.67 / 2236.67 Output Total 450 / 450 1575 / 1575 1175 / 1175 Balance 3501.38 / 3501.38 1061.25 / 1061.25 1061.67 / 1061.67 General: Alert, Oriented x3, Cooperative HEENT: Atraumatic, PERRLA, EOMI, Normocephalic Neck: Supple, No JVD, Negative Carotid Bruits Lungs: Clear to auscultation, Normal air movement Cardiovascular: Regular rate, No murmurs Abdomen: Bowel Sounds Present, Soft, Non Tender Extremities: No edema, Capillary Refill Less than 3 Seconds Skin: No rashes, No breakdown Musculoskeletal: No Tenderness to Palpation of Joints or Extremities Neurological: Cranial nerves II-XII grossly intact Psych/Mental Status: Normal Affect, Appropriate, Alert and oriented to time, place, person, mood and affect Microbiology Past 72 Hours 12/25/19 Unknown Wound - Abdominal Gram Stain - Final 12/25/19 Unknown Wound - Abdominal Wound Culture - Preliminary Staphylococcus aureus 12/24/19 17:00 Wound - Abdominal Gram Stain - Final 12/24/19 17:00 Wound - Abdominal Wound Culture - Preliminary Proteus mirabilis Staphylococcus aureus 12/24/19 19:27 Urine Catheter - Catheter Urine Culture - Final Proteus mirabilis Laboratory Results 12/25/19 05:40: Iron 16 L, TIBC 193 L, Iron Saturation 8.3 L 12/25/19 18:40: Vancomycin Trough 12.3 12/25/19 : S.aureus Protein A PCR POSITIVE H, MRSA (PCR) POSITIVE H 12/26/19 05:50: WBC 9.0, RBC 3.71 L, Hgb 9.0 L, Hct 28.9 L, MCV 77.9 L, MCH 24.3 L, MCHC 31.1 L, RDW Std Deviation 40.8, RDW Coeff of Domonique 14.4, Plt Count 252, MPV 9.9, Immature Gran % (Auto) 0.900, Neut % (Auto) 69.1, Lymph % (Auto) 21.7, [place] % (Auto) 6.2, Eos % (Auto) 1.8, Baso % (Auto) 0.3, Absolute Neuts (auto) 6.2, Absolute Lymphs (auto) 1.95, Nucleated RBC % 0 12/26/19 05:50: Sodium 143, Potassium 3.1 L, Chloride 113 H, Carbon Dioxide 26.0, Anion Gap 4 L, BUN 4 L, Creatinine 0.30 L, Estim Creat Clear Calc 302.65, Est GFR (MDRD) Af Amer 325, Est GFR (MDRD) Non-Af 268, BUN/Creatinine Ratio 13.5, Glucose 75, Calcium 7.6 L, Total Bilirubin 0.40, AST 49 H, ALT 49, Alkaline Phosphatase 155 H, Total Protein 5.2 L, Albumin 2.0 L, Globulin 3.2, Albumin/Globulin Ratio 0.6 L 12/26/19 05:50: Phosphorus 2.3 L, Magnesium 1.6 Current Medications Acetaminophen (Tylenol) 650 mg PO Q6H PRN PRN PRN Reason: Pain Score 1-10/Temp > 100.7 F Last Admin: 12/26/19 08:58 Dose: 650 mg Documented by: Baclofen (Lioresal) 20 mg PO 4X/DAY [facility] Last Admin: 12/26/19 08:58 Dose: 20 mg Documented by: Collagenase (Santyl) 1 applic TOPICAL DAILY [facility]; Protocol Last Admin: 12/26/19 11:35 Dose: 1 applicatio Documented by: Diazepam (Valium) 2 mg PO TID PRN PRN PRN Reason: ANXIETY Last Admin: 12/26/19 08:59 Dose: 2 mg Documented by: Duloxetine HCl (Cymbalta) 120 mg PO DAILY [facility] Last Admin: 12/26/19 08:58 Dose: 120 mg Documented by: Enoxaparin Sodium (Lovenox) 40 mg SC DAILY [facility] Last Admin: 12/26/19 09:07 Dose: Not Given Documented by: Fludrocortisone Acetate (Florinef) 0.1 mg PO DAILY@0800 [facility] Last Admin: 12/26/19 08:58 Dose: 0.1 mg Documented by: Sodium Chloride () 1,000 mls @ 100 mls/hr IV .Q10H [facility] Last Admin: 12/26/19 09:02 Dose: 100 mls/hr Documented by: Piperacillin Sod/Tazobactam (Sod 3.375 gm/ Sodium Chloride) 50 mls @ 12.5 mls/hr IV Q8 [facility] Last Infusion: 12/26/19 11:41 Dose: Infused Documented by: Vancomycin IV Pharmacy to Dose (1 ea/ Sodium Chloride) 500 mls @ 250 mls/hr IV PRN PRN; Protocol PRN Reason: Rx to Dose Vancomycin HCl 1,250 mg/ (Sodium Chloride) 275 mls @ 167 mls/hr IV Q8H [facility] Last Admin: 12/26/19 11:32 Dose: 167 mls/hr Documented by: Sodium Chloride () 250 mls @ 15 mls/hr IV .[id number] PRN PRN Reason: Saline Flush Sodium Chloride () 250 mls @ 15 mls/hr IV .[id number] PRN PRN Reason: Additional IVPB Infusion Nutritional Formula (Jake - [place] Flavor) 1 packet PO BIDCM [facility] Last Admin: 12/26/19 08:58 Dose: 1 packet Documented by: Ondansetron HCl (Zofran) 4 mg IV Q8H PRN PRN PRN Reason: NAUSEA/VOMITING Sodium Chloride () 10 - 40 ml IV UD PRN PRN Reason: Multilumen/[place] Flush Sodium Chloride (0.9% Nacl (Sterile) Posiflush) 10 - 40 ml IV UD PRN PRN Reason: Port access or dressing change STROKE Vital Signs/Narrative: Vital Signs Temp Pulse Resp BP Pulse Ox 12/26/19 10:13 98.6 F 86 20 H 110/69 96 Medical Necessity - Tobacco Use Smoking Status: Current every day smoker Tobacco Use: Cigarettes Assessment/Plan All Active Problems Pressure 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 Nonhealing abd wounds, UTI (2/2 suprapubic cath)- vanc for mrsa. zosyn to rocephin for proteus. Wound care following. photos on chart. C/s to Dr. Richard. WBC improved. + MRSA. LA neg. Will need close wound care follow up. -Wound cx proteus and MRSA -Urine Cx proteus 2. Microcytic anemia - iron deficient - venofer. 3. 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 continue baclofen. 4. Hypotension - florinef. off midodrine for now. 5. RLL nodule - o/p repeat imaging. 6. Abn lfts - improving. 7. Anx/depression - duloxetine, valium prn 8. hypokalemia, hypomag, hypophos - replete all, check in am. 9. hx nicotine abuse, amphetamine use, marijuana use. will complicate wound healing. DVT ppx: lovenox DC planning: possibly needs SNF. This patient was seen by Anish Mccarty PA-C under the supervision of Doctor St. <Alma Rosa,[place] - Last Filed: 12/27/19 07:49> Vitals/I&O's: Vital Signs Temp Pulse Resp BP Pulse Ox 97.3 F L 94 20 H 119/73 98 12/26/19 16:10 12/26/19 16:10 12/26/19 16:10 12/26/19 16:10 12/26/19 16:10 Oxygen Delivery Method Room Air Weight: 82.6 kg Body Mass Index (BMI) 24.0 Intake and Output for Last 24 Hours 12/24/19 12/25/19 12/26/19 23:59 23:59 23:59 Intake Total 3951.38 / 3951.38 2636.25 / 2636.25 4170.67 / 4170.67 Output Total 450 / 450 1575 / 1575 2675 / 2675 Balance 3501.38 / 3501.38 1061.25 / 1061.25 1495.67 / 1495.67 Microbiology Past 72 Hours 12/25/19 Unknown Wound - Abdominal Gram Stain - Final 12/25/19 Unknown Wound - Abdominal Wound Culture - Preliminary Staphylococcus aureus 12/24/19 17:00 Wound - Abdominal Gram Stain - Final 12/24/19 17:00 Wound - Abdominal Wound Culture - Preliminary Proteus mirabilis Staphylococcus aureus 12/24/19 19:27 Urine Catheter - Catheter Urine Culture - Final Proteus mirabilis Laboratory Results 12/25/19 18:40: Vancomycin Trough 12.3 12/26/19 05:50: WBC 9.0, RBC 3.71 L, Hgb 9.0 L, Hct 28.9 L, MCV 77.9 L, MCH 24.3 L, MCHC 31.1 L, RDW Std Deviation 40.8, RDW Coeff of Domonique 14.4, Plt Count 252, MPV 9.9, Immature Gran % (Auto) 0.900, Neut % (Auto) 69.1, Lymph % (Auto) 21.7, Stafford % (Auto) 6.2, Eos % (Auto) 1.8, Baso % (Auto) 0.3, Absolute Neuts (auto) 6.2, Absolute Lymphs (auto) 1.95, Nucleated RBC % 0 12/26/19 05:50: Sodium 143, Potassium 3.1 L, Chloride 113 H, Carbon Dioxide 26.0, Anion Gap 4 L, BUN 4 L, Creatinine 0.30 L, Estim Creat Clear Calc 302.65, Est GFR (MDRD) Af Amer 325, Est GFR (MDRD) Non-Af 268, BUN/Creatinine Ratio 13.5, Glucose 75, Calcium 7.6 L, Total Bilirubin 0.40, AST 49 H, ALT 49, Alkaline Phosphatase 155 H, Total Protein 5.2 L, Albumin 2.0 L, Globulin 3.2, Albumin/Globulin Ratio 0.6 L 12/26/19 05:50: Phosphorus 2.3 L, Magnesium 1.6 Current Medications Acetaminophen (Tylenol) 650 mg PO Q6H PRN PRN PRN Reason: Pain Score 1-10/Temp > 100.7 F Last Admin: 12/26/19 15:04 Dose: 650 mg Documented by: Baclofen (Lioresal) 20 mg PO 4X/DAY [facility] Last Admin: 12/26/19 17:22 Dose: 20 mg Documented by: Collagenase (Santyl) 1 applic TOPICAL DAILY [facility]; Protocol Last Admin: 12/26/19 11:35 Dose: 1 applicatio Documented by: Diazepam (Valium) 2 mg PO TID PRN PRN PRN Reason: ANXIETY Last Admin: 12/26/19 17:22 Dose: 2 mg Documented by: Duloxetine HCl (Cymbalta) 120 mg PO DAILY [facility] Last Admin: 12/26/19 08:58 Dose: 120 mg Documented by: Enoxaparin Sodium (Lovenox) 40 mg SC DAILY [facility] Last Admin: 12/26/19 09:07 Dose: Not Given Documented by: Fludrocortisone Acetate (Florinef) 0.1 mg PO DAILY@0800 [facility] Last Admin: 12/26/19 08:58 Dose: 0.1 mg Documented by: Vancomycin IV Pharmacy to Dose (1 ea/ Sodium Chloride) 500 mls @ 250 mls/hr IV PRN PRN; Protocol PRN Reason: Rx to Dose Vancomycin HCl 1,250 mg/ (Sodium Chloride) 275 mls @ 167 mls/hr IV Q8H [facility] Last Infusion: 12/26/19 14:17 Dose: Infused Documented by: Sodium Chloride () 250 mls @ 15 mls/hr IV .[id number] PRN PRN Reason: Saline Flush Sodium Chloride () 250 mls @ 15 mls/hr IV .[id number] PRN PRN Reason: Additional IVPB Infusion Ceftriaxone Sodium (Rocephin) 1 gm in 50 mls @ 100 mls/hr IV Q24 [facility] Last Infusion: 12/26/19 15:04 Dose: Infused Documented by: Potassium Phosphate 40 mm/ (Sodium Chloride) 513.3333 mls @ 62.5 mls/hr IV X1 ONE Stop: 12/27/19 01:12 Last Admin: 12/26/19 17:05 Dose: 62.5 mls/hr Documented by: Nutritional Formula (Jake - [place] Flavor) 1 packet PO BIDCM [facility] Last Admin: 12/26/19 16:53 Dose: Not Given Documented by: Ondansetron HCl (Zofran) 4 mg IV Q8H PRN PRN PRN Reason: NAUSEA/VOMITING Sodium Chloride () 10 - 40 ml IV UD PRN PRN Reason: Multilumen/[place]anova Flush Sodium Chloride (0.9% Nacl (Sterile) Posiflush) 10 - 40 ml IV UD PRN PRN Reason: Port access or dressing change STROKE Vital Signs/Narrative: Vital Signs Temp Pulse Resp BP Pulse Ox 12/26/19 16:10 97.3 F L 94 20 H 119/73 98 12/26/19 15:40 61 Assessment/Plan This patient was seen in conjunction with DEMOND Douglas. I have independently interviewed and examined the patient and reviewed pertinent historical, laboratory, and other data. Please refer to DEMOND Douglas note for his patient's presentation, findings, and recommendations. I have reviewed and his note and concur with his documentation Patient was seen and examined. No new complains. Wound looks improved per wound RN. Denies fever or chills Wound cultures growing staph aureus, Proteus mirabilis. MRSA PCR positive Physical Exam: Gen: Looks in some discomfort, not pale, not jaundiced CVS:HS I +II, regular, no murmurs RESP: Diminished at lung bases GI: BS present and normal, soft, nontender, no palpable organs EXT:No edema ASSESSMENT: 1. Hypokalemia 2. Sepsis secondary to infected abdominal wound, possible UTI, right heel pressure ulcer 3. 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 Anxiety/depression 5. Lung nodule 6. Anemia, likely secondary to hemodilution Plan: Continue on IV Zosyn and vancomycin Continue wound care Per ID and plastic surgery recommendations Inpatient E&M: 59647 Subs Hosp L2
--- NOTE | 2019-12-26 13:55 | CASEMGMT ---
Addendum entered by Lynda Lomeli 12/26/19 15:14: Social Work Return call from Sydney at [facility] and they are able to accept pt. Will start insurance precert today. SW met with pt and informed her that [facility] can accept and will wait on insurance preauth. Pt expresses understanding and asked that her mother be notified. SW placed call to pt mother Dotty Stephens who is thankful for pt decision to go to SNF. SW to continue to follow. Plan: [facility], pending insurance update. BERNARD Salazar Original Note: Social Work Met with pt in room and introduced self and role of SW. Pt room dark with blinds closed. SW inquired about visit from SW yesterday and pt states she does not remember this. SW reminded pt of coversation regarding shelter placement and pt states she does not want to talk about it. SW obtained list of in network facilities on bedside table that was given yesterday and explained why decisions had to be made at this time. Pt then stating she does not [facility] to [facility]. SW read list to pt and pt choosing [facility]. Pt then informed SW that she needed to go back to sleep as she wasn't feeling well and turned head and closed eyes. SW placed call to Zahida at [facility] and they do have beds available. Referral faxed. SW will await determination. Precertification will need to be obtained prior to d/c. SW returned phone call to pt CM at [facility], and left . BERNARD Salazar
[2019-12-26] MEDS: Ceftriaxone 1 GM/50 ML BAG IV (14:11)
--- NOTE | 2019-12-26 14:42 | PCM.HP.ID ---
Problem List (1) Skin ulcer of abdominal wall with fat layer exposed Status: Acute Reason for Consult: abd wall infection Consulted by: Dr. St History of Present Illness: The patient is a 39 year old F with h/o IVDU with heroin and meth, presented 06/2019 with BLE paralysis, found to have epidural abscess, transferred to [facility] at that time. Now paraplegic, suprapubic cath in place. Admitted here in November with abd wall cellulitis, discharged on doxy and keflex. Now back with several days of infected abd wound, not feeling well. She denies ongoing drug use, tox screen here (+) amphetamines and marijuana. MRSA (+) pcr. Seen by Dr. Richard. On vanc/zosyn. Full ROS performed and neg except as noted above. Reports neg hiv testing in past. Hep C (+), but no h/o treatment and she does not know if virus is active. - Medical History Past Medical History (Chronic Problems): Chronic Problems Smoker (Chronic) History of intravenous drug abuse (Chronic) Heroin Paraplegia (Chronic) history of left lower tooth abcess (Chronic) Psoriasis (Chronic) Diarrhea (Chronic) Nausea and vomiting (Chronic) Esophageal reflux (Chronic) Allergies/Adverse Reactions: Allergies No Known Allergies Allergy (Verified 12/24/19 14:32) Home Medications: Ambulatory Orders Medication Instructions Recorded Aspirin [Aspirin, Baby] 1 tab PO DAILY 10/19/19 Bacillus/Protease/Amylas/Lipas 1 cap PO DAILY 10/19/19 [Digest Adv Intensive Bowel Cap] Baclofen 1 tab PO 4X/DAY 10/19/19 Duloxetine HCl 120 mg PO DAILY 10/19/19 Fludrocortisone Acetate [Florinef] 1 tab PO DAILY 10/19/19 Melatonin 5 mg PO QHS 10/19/19 Midodrine HCl 10 mg PO TID 10/19/19 Diazepam [Valium] 5 mg PO Q8H PRN PRN 12/24/19 Oxybutynin Chloride [Oxybutynin 10 mg PO DAILY 12/24/19 Chloride ER] - Social History Tobacco Use: cigarettes Drug Use: heroin, marijuana Vital Signs Temp Pulse Resp BP Pulse Ox 98.6 F 86 20 H 110/69 96 12/26/19 10:13 12/26/19 10:13 12/26/19 10:13 12/26/19 10:13 12/26/19 10:13 Oxygen Delivery Method Room Air Weight: 82.6 kg Body Mass Index (BMI) 24.0 Microbiology Past 72 Hours 12/25/19 Unknown Gram Stain - Final Wound - Abdominal Wound Culture - Preliminary Staphylococcus aureus 12/24/19 17:00 Gram Stain - Final Wound - Abdominal Wound Culture - Preliminary Proteus mirabilis Staphylococcus aureus 12/24/19 19:27 Urine Culture - Final Urine Catheter - Catheter Proteus mirabilis Laboratory Tests Past 24 Hrs 12/25/19 12/25/19 12/26/19 05:40 18:40 05:50 WBC 9.0 RBC 3.71 L Hgb 9.0 L Hct 28.9 L MCV 77.9 L MCH 24.3 L MCHC 31.1 L RDW Std Deviation 40.8 RDW Coeff of Domonique 14.4 Plt Count 252 MPV 9.9 Immature Gran % (Auto) 0.900 Neut % (Auto) 69.1 Lymph % (Auto) 21.7 [place] % (Auto) 6.2 Eos % (Auto) 1.8 Baso % (Auto) 0.3 Absolute Neuts (auto) 6.2 Absolute Lymphs (auto) 1.95 Nucleated RBC % 0 Sodium Potassium Chloride Carbon Dioxide Anion Gap BUN Creatinine Estim Creat Clear Calc Est GFR (MDRD) Af Amer Est GFR (MDRD) Non-Af BUN/Creatinine Ratio Glucose Calcium Phosphorus Magnesium Iron 16 L TIBC 193 L Iron Saturation 8.3 L Total Bilirubin AST ALT Alkaline Phosphatase Total Protein Albumin Globulin Albumin/Globulin Ratio Vancomycin Trough 12.3 12/26/19 12/26/19 05:50 05:50 WBC RBC Hgb Hct MCV MCH MCHC RDW Std Deviation RDW Coeff of Domonique Plt Count MPV Immature Gran % (Auto) Neut % (Auto) Lymph % (Auto) [place] % (Auto) Eos % (Auto) Baso % (Auto) Absolute Neuts (auto) Absolute Lymphs (auto) Nucleated RBC % Sodium 143 Potassium 3.1 L Chloride 113 H Carbon Dioxide 26.0 Anion Gap 4 L BUN 4 L Creatinine 0.30 L Estim Creat Clear Calc 302.65 Est GFR (MDRD) Af Amer 325 Est GFR (MDRD) Non-Af 268 BUN/Creatinine Ratio 13.5 Glucose 75 Calcium 7.6 L Phosphorus 2.3 L Magnesium 1.6 Iron TIBC Iron Saturation Total Bilirubin 0.40 AST 49 H ALT 49 Alkaline Phosphatase 155 H Total Protein 5.2 L Albumin 2.0 L Globulin 3.2 Albumin/Globulin Ratio 0.6 L Vancomycin Trough - Other Studies Radiology: [] reviewed Other Studies: [] Route of nutrition/ use of supplements: [] Nutritional Intake: [] IV Site: [] Charles Catheter: [] - Physical Exam General: Alert, Oriented x3, Cooperative, No apparent distress HEENT: Atraumatic, PERRLA, EOMI Neck: Supple, No Nodes Lungs: Clear to auscultation, Normal air movement Cardiovascular: Regular rate, Regular Rhythm Abdomen: Soft, Non Tender, Non-Distended Extremities: No edema Skin: Ulcer/ Wound - reviewed photos IV Site: Peripheral, without redness Musculoskeletal: No Tenderness to Palpation of Joints or Extremities Neurological: Cranial nerves II-XII grossly intact - Assessment/Plan Antibiotics: [] Assessment/Plan: [] Active and Suspected Problems Sepsis (Acute) Blister of right heel with infection (Acute) Abdominal wall cellulitis (Acute) sepsis due to infected abd wall wounds. Seen by Dr. Richard, wound cx showing staph and proteus, OR planned. MRSA pcr (+). Also with suprapubic cath in place, UA with heavy pyuria, ucx less than 1k proteus. Cont vanc/zosyn. h/o IVDU, hep C, and tox screen (+) for amphetamines - pt agrees to hiv testing. Will check hep B and hep C. Will follow, thank you
[2019-12-27] VITALS (8 sets, daily range): BP systolic 103–124; BP diastolic 61–76; PULSE 65–84; RESP 16–18; TEMP 36.4–37.6; O2SAT 96–97
[2019-12-27] MEDS: 0.9% Saline Lock 10 ML Syringe IV ×3 (03:47→13:20)
[2019-12-27 04:11] LABS: Vancomycin, Trough Level 15.7 ug/mL (5.0-15.0)
--- NOTE | 2019-12-27 04:13 | NURSING ---
notified Gray in pharmacy pt's vancomycin trough level results.
--- NOTE | 2019-12-27 04:23 | PCM.RX.CS ---
Consult Pharmacy has been consulted to manage selected antiobiotic: Vancomycin Type of Consult: Follow-up Suspected Infection: Sepsis Prior Doses of Antibiotics Received/Current Regimen: Medications Vancomycin HCl 1,250 mg/ (Sodium Chloride) 275 mls @ 167 mls/hr IV Q8H [facility] Last Admin: 12/27/19 03:44 Dose: 167 mls/hr Labs: Sodium 143 mmol/L (136-145) 12/26/19 05:50 Potassium 3.1 mmol/L (3.5-5.1) L 12/26/19 05:50 Chloride 113 mmol/L (98-107) H 12/26/19 05:50 Carbon Dioxide 26.0 mmol/L (21.0-32.0) 12/26/19 05:50 Anion Gap 4 (5-15) L 12/26/19 05:50 BUN 4 mg/dL (7-18) L 12/26/19 05:50 Creatinine 0.30 mg/dL (0.55-1.02) L 12/26/19 05:50 Est GFR (MDRD) Af Amer 325 mL/min (>60) 12/26/19 05:50 Est GFR (MDRD) Non-Af 268 mL/min (>60) 12/26/19 05:50 BUN/Creatinine Ratio 13.5 RATIO (10-20) 12/26/19 05:50 Glucose 75 mg/dL (74-106) 12/26/19 05:50 Vancomycin Trough 15.7 ug/mL (5.0-15.0) H 12/27/19 03:25 Microbiology: Microbiology 12/25/19 Unknown Wound - Abdominal Gram Stain - Final 12/25/19 Unknown Wound - Abdominal Wound Culture - Preliminary Staphylococcus aureus 12/24/19 17:00 Wound - Abdominal Gram Stain - Final 12/24/19 17:00 Wound - Abdominal Wound Culture - Preliminary Proteus mirabilis Staphylococcus aureus 12/24/19 19:27 Urine Catheter - Catheter Urine Culture - Final Proteus mirabilis Weight used for dosin.6 kg Estimated Creatinine Clearance: 302 Goal Trough: 15-20 mcg/mL Pharmacy Plan for Drug Dosing: Trough level of 15.7 was within target range. Will continue dosing at 1250mg q8h and re-draw trough 12/30/19. Pharmacy Service will continue to monitor and adjust dosing as required. Follow-Up Labs: Trough Vancomycin Labs to be done on [date and time ordered]: 12/30/19 @9109
[2019-12-27] MEDS: diazePAM 2 MG Tablet PO ×2 (06:34→16:58)
[2019-12-27 06:35] LABS: Absolute Lymphocyte Count 2.37 X10^3/uL (0.83-4.51); Absolute Neutrophil Count 6.7 X10^3/uL (2.0-7.7); Basophil# 0.05 X10^3/uL; Basophil% 0.5 % (0-1); Eosinophil# 0.24 X10^3/uL; Eosinophils% 2.4 % (0-5); Hemoglobin 9.7 g/dL (12.0-15.0); Lymphocyte # 2.37 X10^3/ul (4.0); Lymphocyte % 23.8 % (19-41); Mean Corp Hgb Conc 31.3 g/dL (32-36); Mean Corpuscular Hgb 24.2 pg (27.0-32.0); Mean Corpuscular Volume 77.3 fL (81-99); Mean Platelet Vol. 9.7 fl (6.2-12.0); Monocyte# 0.53 X10^3/uL; Monocyte% 5.3 % (0-10); NRBC Flagged by Analyzer 0 % (0-5); Neutrophil % 67.3 % (47-70); POSITIVE MORPHOLOGY YES; Platelet Count 318 K/mm3 (150-450); RBC Distribution Width CV 14.3 % (11.6-14.6); RBC Distribution Width SD 40.5 fl (35.1-43.9); Red Blood Count 4.01 M/mm3 (4.2-5.4)
[2019-12-27 06:36] LABS: Differential Indicated SCAN CRITERIA MET
[2019-12-27 06:50] LABS: Differential Comment SCANNED
[2019-12-27 07:07] LABS: Anion Gap 5 (5-15); BUN 2 mg/dL (7-18); BUN/Creat Ratio 6.5 RATIO (10-20); Calcium,Total 7.8 mg/dL (8.5-10.1); Chloride 110 mmol/L (98-107); Creatinine, Serum 0.31 mg/dL (0.55-1.02); EST Glomerular Filtration Rate 254 mL/min (>60); Est Glom Filt Rate - Afr Amer 308 mL/min (>60); Estimated Creatinine Clearance 292.88 ml/min; Glucose 93 mg/dL (74-106); Magnesium 1.8 mg/dL (1.6-2.6); Phosphorus 3.2 mg/dL (2.5-4.9); Potassium 3.5 mmol/L (3.5-5.1); Sodium Level 143 mmol/L (136-145)
[2019-12-27] MEDS: Ceftriaxone 1 GM/50 ML BAG IV (09:22)
[2019-12-27] MEDS: Fludrocortisone Acetate 0.1 MG Tablet PO (09:25)
[2019-12-27] MEDS: DULoxetine Hcl 60 MG Capsule 120 MG PO (09:25)
[2019-12-27] MEDS: Baclofen 10 MG Tablet 20 MG PO ×4 (09:25→21:02)
--- NOTE | 2019-12-27 12:31 | PN_ITS ---
<Anish Mccarty - Last Filed: 12/27/19 12:31> Patient Problems: Active and Suspected Problems Sepsis (Acute) Blister of right heel with infection (Acute) Abdominal wall cellulitis (Acute) Reason for Visit: nonhealing wounds Subjective: pt complains of all over diffuse pain and states she needs to be back on gabapentin, tho i do not see this on her home meds. Will trial low dose. No nausea/vomiting. No diarrhea. Overnight some subjective fevers/chills. No CP, SOB. Anxiety is improved. Vitals/I&O's: Vital Signs Temp Pulse Resp BP Pulse Ox 99.6 F H 83 16 124/76 H 97 12/27/19 09:19 12/27/19 09:19 12/27/19 09:19 12/27/19 09:19 12/27/19 09:19 Oxygen Delivery Method Room Air Weight: 182 lb 1.629 oz Body Mass Index (BMI) 24.0 Intake and Output for Last 24 Hours 12/25/19 12/26/19 12/27/19 23:59 23:59 23:59 Intake Total 2636.25 / 2636.25 4445.67 / 5245.67 3102.3333 / 3102.3333 Output Total 1575 / 1575 2675 / 4025 3550 / 3550 Balance 1061.25 / 1061.25 1770.67 / 1220.67 -447.6667 / -447.6667 General: Alert, Oriented x3, Cooperative HEENT: Atraumatic, PERRLA, EOMI, Normocephalic Neck: Supple, No JVD, Negative Carotid Bruits Lungs: Clear to auscultation, Normal air movement Cardiovascular: Regular rate, No murmurs Abdomen: Bowel Sounds Present, Soft, Non Tender Extremities: No edema, Capillary Refill Less than 3 Seconds Skin: No rashes, No breakdown Musculoskeletal: No Tenderness to Palpation of Joints or Extremities Neurological: Cranial nerves II-XII grossly intact Psych/Mental Status: Anxious, Alert and oriented to time, place, person, mood and affect Microbiology Past 72 Hours 12/25/19 Unknown Wound - Abdominal Gram Stain - Final 12/25/19 Unknown Wound - Abdominal Wound Culture - Final Meth. resistant Staph. aureus 12/24/19 17:00 Wound - Abdominal Gram Stain - Final 12/24/19 17:00 Wound - Abdominal Wound Culture - Preliminary Proteus mirabilis Staphylococcus aureus 12/24/19 19:27 Urine Catheter - Catheter Urine Culture - Final Proteus mirabilis Laboratory Results 12/27/19 03:25: Vancomycin Trough 15.7 H 12/27/19 06:00: WBC 10.0, RBC 4.01 L, Hgb 9.7 L, Hct 31.0 L, MCV 77.3 L, MCH 24.2 L, MCHC 31.3 L, RDW Std Deviation 40.5, RDW Coeff of Domonique 14.3, Plt Count 318, MPV 9.7, Immature Gran % (Auto) 0.700, Neut % (Auto) 67.3, Lymph % (Auto) 23.8, [place] % (Auto) 5.3, Eos % (Auto) 2.4, Baso % (Auto) 0.5, Absolute Neuts (auto) 6.7, Absolute Lymphs (auto) 2.37, Nucleated RBC % 0, Differential Comment SCANNED 12/27/19 06:00: Sodium 143, Potassium 3.5, Chloride 110 H, Carbon Dioxide 28.0, Anion Gap 5, BUN 2 L, Creatinine 0.31 L, Estim Creat Clear Calc 292.88, Est GFR (MDRD) Af Amer 308, Est GFR (MDRD) Non-Af 254, BUN/Creatinine Ratio 6.5 L, Glucose 93, Calcium 7.8 L, Phosphorus 3.2, Magnesium 1.8 12/27/19 06:00: Phosphorus Cancelled 12/27/19 06:00: Hep B Core Total Ab Pending, HCV RNA Quant (PCR) Pending 12/27/19 06:00: Hep Bs Antigen Pending, HIV 1&2 Antibody Pending Current Medications Acetaminophen (Tylenol) 650 mg PO Q6H PRN PRN PRN Reason: Pain Score 1-10/Temp > 100.7 F Last Admin: 12/26/19 15:04 Dose: 650 mg Documented by: Baclofen (Lioresal) 20 mg PO 4X/DAY [facility] Last Admin: 12/27/19 09:25 Dose: 20 mg Documented by: Collagenase (Santyl) 1 applic TOPICAL DAILY [facility]; Protocol Last Admin: 12/26/19 11:35 Dose: 1 applicatio Documented by: Diazepam (Valium) 2 mg PO TID PRN PRN PRN Reason: ANXIETY Last Admin: 12/27/19 06:34 Dose: 2 mg Documented by: Duloxetine HCl (Cymbalta) 120 mg PO DAILY [facility] Last Admin: 12/27/19 09:25 Dose: 120 mg Documented by: Enoxaparin Sodium (Lovenox) 40 mg SC DAILY [facility] Last Admin: 12/27/19 09:20 Dose: Not Given Documented by: Fludrocortisone Acetate (Florinef) 0.1 mg PO DAILY@0800 [facility] Last Admin: 12/27/19 09:25 Dose: 0.1 mg Documented by: Vancomycin IV Pharmacy to Dose (1 ea/ Sodium Chloride) 500 mls @ 250 mls/hr IV PRN PRN; Protocol PRN Reason: Rx to Dose Vancomycin HCl 1,250 mg/ (Sodium Chloride) 275 mls @ 167 mls/hr IV Q8H [facility] Last Admin: 12/27/19 11:38 Dose: 167 mls/hr Documented by: Sodium Chloride () 250 mls @ 15 mls/hr IV .[id number] PRN PRN Reason: Saline Flush Sodium Chloride () 250 mls @ 15 mls/hr IV .[id number] PRN PRN Reason: Additional IVPB Infusion Ceftriaxone Sodium (Rocephin) 1 gm in 50 mls @ 100 mls/hr IV Q24 [facility] Last Infusion: 12/27/19 09:55 Dose: Infused Documented by: Nutritional Formula (Jake - Wood Flavor) 1 packet PO BIDCM [facility] Last Admin: 12/27/19 09:21 Dose: 1 packet Documented by: Ondansetron HCl (Zofran) 4 mg IV Q8H PRN PRN PRN Reason: NAUSEA/VOMITING Sodium Chloride () 10 - 40 ml IV UD PRN PRN Reason: Multilumen/Casanova Flush Last Admin: 12/27/19 06:22 Dose: 30 ml Documented by: Sodium Chloride (0.9% Nacl (Sterile) Posiflush) 10 - 40 ml IV UD PRN PRN Reason: Port access or dressing change STROKE Vital Signs/Narrative: Vital Signs Temp Pulse Resp BP Pulse Ox 12/27/19 09:19 99.6 F H 83 16 124/76 H 97 Medical Necessity - Tobacco Use Smoking Status: Current every day smoker Tobacco Use: Cigarettes Assessment/Plan All Active Problems Pressure 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 Nonhealing abd wounds, UTI (2/2 suprapubic cath)- mrsa, protesus: vanc, rocephin. Wound care following. Plastics & ID following. WBC improved. + MRSA. LA neg. Will need close wound care follow up. -Wound cx proteus and MRSA -Urine Cx proteus -bl cx pending. 2. Microcytic anemia - iron deficient - venofer. hgb improved. 3. 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 continue baclofen. gabapentin restarted. 4. Hypotension - florinef. off midodrine. bp stable. 5. RLL nodule - o/p repeat imaging. 6. Abn lfts - improving. hep panel/hiv pending. 7. Anx/depression - duloxetine, valium prn 8. hypokalemia, hypomag, hypophos - repleted. 9. hx nicotine abuse, amphetamine use, marijuana use. will complicate wound healing. DVT ppx: lovenox DC planning: possibly needs SNF. This patient was seen by Anish Mccarty PA-C under the supervision of Doctor Alma Rosa. <Alma Rosa,[place] - Last Filed: 12/27/19 14:05> Vitals/I&O's: Vital Signs Temp Pulse Resp BP Pulse Ox 99.6 F H 83 16 124/76 H 97 12/27/19 09:19 12/27/19 09:19 12/27/19 09:19 12/27/19 09:19 12/27/19 09:19 Oxygen Delivery Method Room Air Weight: 82.6 kg Body Mass Index (BMI) 24.0 Intake and Output for Last 24 Hours 12/25/19 12/26/19 12/27/19 23:59 23:59 23:59 Intake Total 2636.25 / 2636.25 4445.67 / 5245.67 3377.3333 / 3377.3333 Output Total 1575 / 1575 2675 / 4025 3550 / 3550 Balance 1061.25 / 1061.25 1770.67 / 1220.67 -172.6667 / -172.6667 Microbiology Past 72 Hours 12/25/19 Unknown Wound - Abdominal Gram Stain - Final 12/25/19 Unknown Wound - Abdominal Wound Culture - Final Meth. resistant Staph. aureus 12/24/19 17:00 Wound - Abdominal Gram Stain - Final 12/24/19 17:00 Wound - Abdominal Wound Culture - Preliminary Proteus mirabilis Staphylococcus aureus 12/24/19 19:27 Urine Catheter - Catheter Urine Culture - Final Proteus mirabilis Laboratory Results 12/27/19 03:25: Vancomycin Trough 15.7 H 12/27/19 06:00: WBC 10.0, RBC 4.01 L, Hgb 9.7 L, Hct 31.0 L, MCV 77.3 L, MCH 24.2 L, MCHC 31.3 L, RDW Std Deviation 40.5, RDW Coeff of Domonique 14.3, Plt Count 318, MPV 9.7, Immature Gran % (Auto) 0.700, Neut % (Auto) 67.3, Lymph % (Auto) 23.8, [place] % (Auto) 5.3, Eos % (Auto) 2.4, Baso % (Auto) 0.5, Absolute Neuts (auto) 6.7, Absolute Lymphs (auto) 2.37, Nucleated RBC % 0, Differential Comment SCANNED 12/27/19 06:00: Sodium 143, Potassium 3.5, Chloride 110 H, Carbon Dioxide 28.0, Anion Gap 5, BUN 2 L, Creatinine 0.31 L, Estim Creat Clear Calc 292.88, Est GFR (MDRD) Af Amer 308, Est GFR (MDRD) Non-Af 254, BUN/Creatinine Ratio 6.5 L, Glucose 93, Calcium 7.8 L, Phosphorus 3.2, Magnesium 1.8 12/27/19 06:00: Phosphorus Cancelled 12/27/19 06:00: Hep B Core Total Ab Pending, HCV RNA Quant (PCR) Pending 12/27/19 06:00: Hep Bs Antigen Pending, HIV 1&2 Antibody Pending Current Medications Acetaminophen (Tylenol) 650 mg PO Q6H PRN PRN PRN Reason: Pain Score 1-10/Temp > 100.7 F Last Admin: 12/26/19 15:04 Dose: 650 mg Documented by: Baclofen (Lioresal) 20 mg PO 4X/DAY [facility] Last Admin: 12/27/19 13:22 Dose: 20 mg Documented by: Collagenase (Santyl) 1 applic TOPICAL DAILY [facility]; Protocol Last Admin: 12/26/19 11:35 Dose: 1 applicatio Documented by: Diazepam (Valium) 2 mg PO TID PRN PRN PRN Reason: ANXIETY Last Admin: 12/27/19 06:34 Dose: 2 mg Documented by: Duloxetine HCl (Cymbalta) 120 mg PO DAILY [facility] Last Admin: 12/27/19 09:25 Dose: 120 mg Documented by: Enoxaparin Sodium (Lovenox) 40 mg SC DAILY [facility] Last Admin: 12/27/19 09:20 Dose: Not Given Documented by: Fludrocortisone Acetate (Florinef) 0.1 mg PO DAILY@0800 [facility] Last Admin: 12/27/19 09:25 Dose: 0.1 mg Documented by: Gabapentin (Neurontin) 100 mg PO TIDCM [facility] Last Admin: 12/27/19 13:20 Dose: 100 mg Documented by: Vancomycin IV Pharmacy to Dose (1 ea/ Sodium Chloride) 500 mls @ 250 mls/hr IV PRN PRN; Protocol PRN Reason: Rx to Dose Vancomycin HCl 1,250 mg/ (Sodium Chloride) 275 mls @ 167 mls/hr IV Q8H [facility] Last Infusion: 12/27/19 13:20 Dose: Infused Documented by: Sodium Chloride () 250 mls @ 15 mls/hr IV .[id number] PRN PRN Reason: Saline Flush Sodium Chloride () 250 mls @ 15 mls/hr IV .[id number] PRN PRN Reason: Additional IVPB Infusion Ceftriaxone Sodium (Rocephin) 1 gm in 50 mls @ 100 mls/hr IV Q24 [facility] Last Infusion: 12/27/19 09:55 Dose: Infused Documented by: Nutritional Formula (Jake - Wood Flavor) 1 packet PO BIDCM [facility] Last Admin: 12/27/19 09:21 Dose: Not Given Documented by: Ondansetron HCl (Zofran) 4 mg IV Q8H PRN PRN PRN Reason: NAUSEA/VOMITING Sodium Chloride () 10 - 40 ml IV UD PRN PRN Reason: Multilumen/Casanova Flush Last Admin: 12/27/19 13:20 Dose: 10 ml Documented by: Sodium Chloride (0.9% Nacl (Sterile) Posiflush) 10 - 40 ml IV UD PRN PRN Reason: Port access or dressing change Assessment/Plan This patient was seen in conjunction with DEMOND Douglas. I have independently interviewed and examined the patient and reviewed pertinent historical, laboratory, and other data. Please refer to DEMOND Douglas note for his patient's presentation, findings, and recommendations. I have reviewed and his note and concur with his documentation Patient was seen and examined. Complains of generalized pain. Requested restart of her gabapentin. This has been done. Denies fever or chills Wound cultures growing staph aureus, Proteus mirabilis. MRSA PCR positive Physical Exam: Gen: Looks in some discomfort, not pale, not jaundiced CVS:HS I +II, regular, no murmurs RESP: Color clear to auscultation GI: BS present and normal, soft, nontender, no palpable organs EXT:No edema, slight contracture of the right knee ASSESSMENT: 1. Hypokalemia 2. Sepsis secondary to infected abdominal wounds, possible UTI, right heel pressure ulcer 3. 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 Anxiety/depression 5. Lung nodule 6. Anemia, likely secondary to hemodilution, iron deficiency 7. Hypomagnesemia 8. Hypophosphatemia Plan: Replace electrolytes Resume gabapentin Continue on IV Zosyn and vancomycin Continue wound care Follow-up per ID and plastic surgery recommendations Follow-up on HIV, Hepatitis B and C Inpatient E&M: 29268 Subs Hosp L2
[2019-12-27] MEDS: Ketorolac 30 MG/ML Syringe IV (13:19)
[2019-12-27] MEDS: Gabapentin 100 MG Capsule PO ×2 (13:20→18:02)
[2019-12-27] MEDS: Magnesium Oxide 400 MG Tablet 800 MG PO (13:20)
[2019-12-27] MEDS: Collagenase 30gm Tube 1 APPLIC TOPICAL (16:58)
[2019-12-27] MEDS: MELATONIN 3 MG TABLET PO (21:02)
[2019-12-27] MEDS: Acetaminophen 325 MG Tablet 650 MG PO (21:09)
[2019-12-28] VITALS (8 sets, daily range): BP systolic 111–116; BP diastolic 69–72; PULSE 60–89; RESP 15–18; TEMP 36.4–36.8; O2SAT 96–99
[2019-12-28] MEDS: 0.9% Saline Lock 10 ML Syringe IV (04:27)
[2019-12-28 05:28] LABS: Absolute Lymphocyte Count 2.94 X10^3/uL (0.83-4.51); Absolute Neutrophil Count 5.9 X10^3/uL (2.0-7.7); Basophil# 0.04 X10^3/uL; Basophil% 0.4 % (0-1); Eosinophil# 0.29 X10^3/uL; Hematocrit 31.1 % (37-47); Hemoglobin 9.5 g/dL (12.0-15.0); Lymphocyte # 2.94 X10^3/ul (4.0); Lymphocyte % 30.1 % (19-41); Mean Corp Hgb Conc 30.5 g/dL (32-36); Mean Corpuscular Volume 78.5 fL (81-99); Mean Platelet Vol. 9.9 fl (6.2-12.0); Monocyte# 0.55 X10^3/uL; Monocyte% 5.6 % (0-10); NRBC Flagged by Analyzer 0 % (0-5); Neutrophil # 5.89 X10^3/uL (2.7-7.7); Neutrophil % 60.2 % (47-70); Platelet Count 321 K/mm3 (150-450); RBC Distribution Width CV 14.5 % (11.6-14.6); RBC Distribution Width SD 41.1 fl (35.1-43.9); Red Blood Count 3.96 M/mm3 (4.2-5.4); White Blood Count 9.8 K/mm3 (4.4-11.0)
[2019-12-28 05:43] LABS: Anion Gap 7 (5-15); BUN 3 mg/dL (7-18); BUN/Creat Ratio 7.7 RATIO (10-20); Calcium,Total 7.6 mg/dL (8.5-10.1); Chloride 109 mmol/L (98-107); Creatinine, Serum 0.39 mg/dL (0.55-1.02); EST Glomerular Filtration Rate 195 mL/min (>60); Est Glom Filt Rate - Afr Amer 235 mL/min (>60); Estimated Creatinine Clearance 232.81 ml/min; Glucose 110 mg/dL (74-106); Potassium 3.4 mmol/L (3.5-5.1); Sodium Level 144 mmol/L (136-145)
[2019-12-28] MEDS: Acetaminophen 325 MG Tablet 650 MG PO ×2 (09:01→20:58)
[2019-12-28] MEDS: Gabapentin 100 MG Capsule PO ×3 (09:01→17:04)
[2019-12-28] MEDS: Fludrocortisone Acetate 0.1 MG Tablet PO (09:01)
[2019-12-28] MEDS: diazePAM 2 MG Tablet PO ×3 (09:01→23:04)
[2019-12-28] MEDS: Baclofen 10 MG Tablet 20 MG PO ×4 (09:02→20:58)
[2019-12-28] MEDS: DULoxetine Hcl 60 MG Capsule 120 MG PO (09:02)
[2019-12-28] MEDS: Ceftriaxone 1 GM/50 ML BAG IV (09:10)
--- NOTE | 2019-12-28 12:24 | PN_ITS ---
Patient Problems: Active and Suspected Problems Sepsis (Acute) Blister of right heel with infection (Acute) Abdominal wall cellulitis (Acute) Subjective: Overall pt state that she is stable but is c/o bad spasming in her LE. States that she is new to paraplegia as of June. She is on Baclofen already and gabapentin was ordered yesterday but has not helped much as of yet. Vitals/I&O's: Vital Signs Temp Pulse Resp BP Pulse Ox 97.8 F 89 15 111/72 97 12/28/19 09:21 12/28/19 09:21 12/28/19 09:21 12/28/19 09:21 12/28/19 09:21 Oxygen Delivery Method Room Air Weight: 82.6 kg Body Mass Index (BMI) 24.0 Intake and Output for Last 24 Hours 12/26/19 12/27/19 12/29/19 23:59 23:59 00:59 Intake Total 4445.67 / 5245.67 4902.3333 / 4902.3333 325 / 325 Output Total 2675 / 4025 6550 / 6550 850 / 850 Balance 1770.67 / 1220.67 -1647.6667 / -1647.6667 -525 / -525 General: Alert, Oriented x3, Cooperative, No apparent distress, Well developed, Well nourished, - - lying in a bed, room dark, talking on phone, appears older than stated age HEENT: Atraumatic, PERRLA, EOMI, Normocephalic Oral: Moist Mucosa, No Gingival or Mucosal Lesions/ Ulcerations, - - no thrush, poor dentition Neck: Supple, No JVD, Negative Carotid Bruits, Negative Hepatojugular Reflux, No Nodes, No Nuchal Rigidity, Trachea Midline, Thyroid Normal Size and Texture Lungs: Clear to auscultation, Normal air movement, No rhonchi, No wheeze, No rales Cardiovascular: Regular rate, Regular Rhythm, Normal S1, Normal S2, No murmurs, No Ectopic Activity, No rub noted, No Gallop Abdomen: Bowel Sounds Present, Soft, Non Tender, Non-Distended, No Hepato- splenomegaly, No hernias noted, - - wound R lower abdomen, no sig necrotic tissue Extremities: No clubbing, No cyanosis, No edema, Capillary Refill Less than 3 Seconds Skin: No rashes, - - some skin breakdown around suprapubic catheter Musculoskeletal: No Tenderness to Palpation of Joints or Extremities, No Muscle Wasting Lymphatic: No Cervical, Supraclavicular, or Inguinal Adenopathy Neurological: Cranial nerves II-XII grossly intact, - - B LE motor defecits with paraplegia and sparring of sensation Psych/Mental Status: Normal Affect, Appropriate, Alert and oriented to time, place, person, mood and affect Microbiology Past 72 Hours 12/24/19 17:00 Wound - Abdominal Gram Stain - Final 12/24/19 17:00 Wound - Abdominal Wound Culture - Final Proteus mirabilis Meth. resistant Staph. aureus 12/27/19 18:20 Stool C. difficile DNA Amplification - Final 12/24/19 17:28 Blood Culture (Wb) - Line Draw Blood Culture - Preliminary No growth in 48 hours. 12/25/19 Unknown Wound - Abdominal Gram Stain - Final 12/25/19 Unknown Wound - Abdominal Wound Culture - Final Meth. resistant Staph. aureus 12/24/19 19:27 Urine Catheter - Catheter Urine Culture - Final Proteus mirabilis Laboratory Results 12/28/19 04:20: WBC 9.8, RBC 3.96 L, Hgb 9.5 L, Hct 31.1 L, MCV 78.5 L, MCH 24.0 L, MCHC 30.5 L, RDW Std Deviation 41.1, RDW Coeff of Domonique 14.5, Plt Count 321, MPV 9.9, Immature Gran % (Auto) 0.700, Neut % (Auto) 60.2, Lymph % (Auto) 30.1, [place] % (Auto) 5.6, Eos % (Auto) 3.0, Baso % (Auto) 0.4, Absolute Neuts (auto) 5.9, Absolute Lymphs (auto) 2.94, Nucleated RBC % 0 12/28/19 04:20: Sodium 144, Potassium 3.4 L, Chloride 109 H, Carbon Dioxide 28.0, Anion Gap 7, BUN 3 L, Creatinine 0.39 L, Estim Creat Clear Calc 232.81, Est GFR (MDRD) Af Amer 235, Est GFR (MDRD) Non-Af 195, BUN/Creatinine Ratio 7.7 L, Glucose 110 H, Calcium 7.6 L Current Medications Acetaminophen (Tylenol) 650 mg PO Q6H PRN PRN PRN Reason: Pain Score 1-10/Temp > 100.7 F Last Admin: 12/28/19 09:01 Dose: 650 mg Documented by: Baclofen (Lioresal) 20 mg PO 4X/DAY [facility] Last Admin: 12/28/19 09:02 Dose: 20 mg Documented by: Collagenase (Santyl) 1 applic TOPICAL DAILY [facility]; Protocol Last Admin: 12/27/19 16:58 Dose: 1 applicatio Documented by: Diazepam (Valium) 2 mg PO TID PRN PRN PRN Reason: ANXIETY Last Admin: 12/28/19 09:01 Dose: 2 mg Documented by: Duloxetine HCl (Cymbalta) 120 mg PO DAILY [facility] Last Admin: 12/28/19 09:02 Dose: 120 mg Documented by: Enoxaparin Sodium (Lovenox) 40 mg SC DAILY [facility] Last Admin: 12/28/19 08:54 Dose: Not Given Documented by: Fludrocortisone Acetate (Florinef) 0.1 mg PO DAILY@0800 [facility] Last Admin: 12/28/19 09:01 Dose: 0.1 mg Documented by: Gabapentin (Neurontin) 100 mg PO TIDCM [facility] Last Admin: 12/28/19 09:01 Dose: 100 mg Documented by: Vancomycin IV Pharmacy to Dose (1 ea/ Sodium Chloride) 500 mls @ 250 mls/hr IV PRN PRN; Protocol PRN Reason: Rx to Dose Vancomycin HCl 1,250 mg/ (Sodium Chloride) 275 mls @ 167 mls/hr IV Q8H [facility] Last Admin: 12/28/19 10:25 Dose: 167 mls/hr Documented by: Sodium Chloride () 250 mls @ 15 mls/hr IV .[id number] PRN PRN Reason: Saline Flush Sodium Chloride () 250 mls @ 15 mls/hr IV .[id number] PRN PRN Reason: Additional IVPB Infusion Ceftriaxone Sodium (Rocephin) 1 gm in 50 mls @ 100 mls/hr IV Q24 [facility] Last Infusion: 12/28/19 09:40 Dose: Infused Documented by: Melatonin (Melatonin) 3 mg PO QHS [facility] Last Admin: 12/27/19 21:02 Dose: 3 mg Documented by: Nutritional Formula (Jake - Walsh Flavor) 1 packet PO BIDCM [facility] Last Admin: 12/28/19 08:53 Dose: Not Given Documented by: Ondansetron HCl (Zofran) 4 mg IV Q8H PRN PRN PRN Reason: NAUSEA/VOMITING Sodium Chloride () 10 - 40 ml IV UD PRN PRN Reason: Multilumen/Casanova Flush Last Admin: 12/28/19 04:27 Dose: 20 ml Documented by: Sodium Chloride (0.9% Nacl (Sterile) Posiflush) 10 - 40 ml IV UD PRN PRN Reason: Port access or dressing change STROKE Vital Signs/Narrative: Vital Signs Temp Pulse Resp BP Pulse Ox 12/28/19 09:21 97.8 F 89 15 111/72 97 Medical Necessity - Tobacco Use Smoking Status: Current every day smoker Tobacco Use: Cigarettes Assessment/Plan All Active Problems Pressure injury of trochanteric region of right hip, stage 3 (Acute) Infection with methicillin-resistant Staphylococcus aureus (MRSA) (Acute) Skin ulcer of abdominal wall with fat layer exposed (Acute) Cellulitis (Acute) Sepsis (Acute) Blister of right heel with infection (Acute) Abdominal wall cellulitis (Acute) Infected Non-Healing Abdominal Wounds -suspect is from urine -organisms are Proteus and MRSA -Blood cx neg at 48 hrs -on Vanc and Rocephin -ID/wound care/Plastics following -operative course is recommend but pt will f/u at the wound center after d/c and operative options will be disccused there per Plastics note UTI 2/2 suprapubic catheter -Proteus and MRSA -Vanc and CTX per ID -Blood cx neg H/O IVDU -Hep studies ordered but all pending -HIV pending -Tox + on admission for THC and amphetamines Chronic Microcytic Anemia -Was given venofer in past with improved hgb -continue supplementations -hgb is stable Hypokalemia -40 mEq PO Kdur -repeat am BMP Chronic Hypotension -continue Florinef -BP is stable Mild transaminitis -Hep studies Pending RLL Lung Nodule -will need outpt f/u imaging Paraplegia 2/2 Spinal Abscess -Neruogenic bladder with suprapubic catheter -Gabapentin initiated 12/26 -continue baclofen -add Zanaflex for spasm 4 mg q 8 hrs prn Depression -Continue cymbalta DVT prophylaxis -Lovenox Code Status -FULL Dispo -probable d/c in am to SNF with outpt wound care f/u Inpatient E&M: 95552 Subs Hosp L3
[2019-12-28] MEDS: tiZANidine HCl 2 MG Tablet 4 MG PO ×2 (13:18→20:58)
[2019-12-28] MEDS: Collagenase 30gm Tube 1 APPLIC TOPICAL (13:19)
--- NOTE | 2019-12-28 15:12 | PN.SURG_ITS ---
Patient Problems: Active and Suspected Problems Sepsis (Acute) Blister of right heel with infection (Acute) Abdominal wall cellulitis (Acute) Subjective: Patient is resting comfortably. I asked her if she thought about the surgery. She stated she was nervous about having it done but then a few sentences later thinks if she doesn't have it done while hospitalized then she would never have it done. - Physical Exam Vitals/I&O's: Vital Signs Temp Pulse Resp BP Pulse Ox 97.8 F 89 15 111/72 97 12/28/19 09:21 12/28/19 09:21 12/28/19 09:21 12/28/19 09:21 12/28/19 09:21 Oxygen Delivery Method Room Air Weight: 182 lb 1.629 oz Body Mass Index (BMI) 24.0 Intake and Output for Last 24 Hours 12/26/19 12/27/19 12/29/19 23:59 23:59 00:59 Intake Total 4445.67 / 5245.67 4902.3333 / 4902.3333 1320 / 1320 Output Total 2675 / 4025 6550 / 6550 1700 / 1700 Balance 1770.67 / 1220.67 -1647.6667 / -1647.6667 -380 / -380 General: Alert, Oriented x3 HEENT: PERRLA, EOMI Oral: Moist Mucosa Neck: Supple Lungs: Clear to auscultation Cardiovascular: Regular rate, Regular Rhythm Abdomen: Soft, Non-Distended Skin: Ulcer/ Wound - There is a painful nonhealing ulcers cluster right abdominal wall. Some exudate present. Some hypergranulation tissue present. Some fat necrosis slough present. No purulent drainage. No fluctuance. Some redness present. Measures 3 x 15 cm. There is a pressure injury ulceration right trochanteric area. Some exudate present. Some hypergranulation tissue present. Some fat necrosis slough present. No purulent drainage. No fluctuance. Some redness present. Stage III pressure injury. Measures 3 x 4 cm. Neurological: Cranial nerves II-XII grossly intact, - - has paraplegia. Psych/Mental Status: Normal Affect, Appropriate Microbiology Past 72 Hours 12/24/19 17:00 Wound - Abdominal Gram Stain - Final 12/24/19 17:00 Wound - Abdominal Wound Culture - Final Proteus mirabilis Meth. resistant Staph. aureus 12/27/19 18:20 Stool C. difficile DNA Amplification - Final 12/24/19 17:28 Blood Culture (Wb) - Line Draw Blood Culture - Preliminary No growth in 48 hours. 12/25/19 Unknown Wound - Abdominal Gram Stain - Final 12/25/19 Unknown Wound - Abdominal Wound Culture - Final Meth. resistant Staph. aureus 12/24/19 19:27 Urine Catheter - Catheter Urine Culture - Final Proteus mirabilis Laboratory Results 12/28/19 04:20: WBC 9.8, RBC 3.96 L, Hgb 9.5 L, Hct 31.1 L, MCV 78.5 L, MCH 24.0 L, MCHC 30.5 L, RDW Std Deviation 41.1, RDW Coeff of Domonique 14.5, Plt Count 321, MPV 9.9, Immature Gran % (Auto) 0.700, Neut % (Auto) 60.2, Lymph % (Auto) 30.1, [place] % (Auto) 5.6, Eos % (Auto) 3.0, Baso % (Auto) 0.4, Absolute Neuts (auto) 5.9, Absolute Lymphs (auto) 2.94, Nucleated RBC % 0 12/28/19 04:20: Sodium 144, Potassium 3.4 L, Chloride 109 H, Carbon Dioxide 28.0, Anion Gap 7, BUN 3 L, Creatinine 0.39 L, Estim Creat Clear Calc 232.81, Est GFR (MDRD) Af Amer 235, Est GFR (MDRD) Non-Af 195, BUN/Creatinine Ratio 7.7 L, Glucose 110 H, Calcium 7.6 L Current Medications Acetaminophen (Tylenol) 650 mg PO Q6H PRN PRN PRN Reason: Pain Score 1-10/Temp > 100.7 F Last Admin: 12/28/19 09:01 Dose: 650 mg Documented by: Baclofen (Lioresal) 20 mg PO 4X/DAY [facility] Last Admin: 12/28/19 13:19 Dose: 20 mg Documented by: Collagenase (Santyl) 1 applic TOPICAL DAILY [facility]; Protocol Last Admin: 12/28/19 13:19 Dose: 1 applicatio Documented by: Diazepam (Valium) 2 mg PO TID PRN PRN PRN Reason: ANXIETY Last Admin: 12/28/19 09:01 Dose: 2 mg Documented by: Duloxetine HCl (Cymbalta) 120 mg PO DAILY [facility] Last Admin: 12/28/19 09:02 Dose: 120 mg Documented by: Enoxaparin Sodium (Lovenox) 40 mg SC DAILY [facility] Last Admin: 12/28/19 08:54 Dose: Not Given Documented by: Fludrocortisone Acetate (Florinef) 0.1 mg PO DAILY@0800 [facility] Last Admin: 12/28/19 09:01 Dose: 0.1 mg Documented by: Gabapentin (Neurontin) 100 mg PO TIDCM [facility] Last Admin: 12/28/19 13:19 Dose: 100 mg Documented by: Vancomycin IV Pharmacy to Dose (1 ea/ Sodium Chloride) 500 mls @ 250 mls/hr IV PRN PRN; Protocol PRN Reason: Rx to Dose Vancomycin HCl 1,250 mg/ (Sodium Chloride) 275 mls @ 167 mls/hr IV Q8H [facility] Last Infusion: 12/28/19 12:05 Dose: Infused Documented by: Sodium Chloride () 250 mls @ 15 mls/hr IV .[id number] PRN PRN Reason: Saline Flush Sodium Chloride () 250 mls @ 15 mls/hr IV .[id number] PRN PRN Reason: Additional IVPB Infusion Ceftriaxone Sodium (Rocephin) 1 gm in 50 mls @ 100 mls/hr IV Q24 [facility] Last Infusion: 12/28/19 09:40 Dose: Infused Documented by: Melatonin (Melatonin) 3 mg PO QHS [facility] Last Admin: 12/27/19 21:02 Dose: 3 mg Documented by: Nutritional Formula (Jake - [place] Flavor) 1 packet PO BIDCM [facility] Last Admin: 12/28/19 13:20 Dose: Not Given Documented by: Ondansetron HCl (Zofran) 4 mg IV Q8H PRN PRN PRN Reason: NAUSEA/VOMITING Sodium Chloride () 10 - 40 ml IV UD PRN PRN Reason: Multilumen/Casanova Flush Last Admin: 12/28/19 04:27 Dose: 20 ml Documented by: Sodium Chloride (0.9% Nacl (Sterile) Posiflush) 10 - 40 ml IV UD PRN PRN Reason: Port access or dressing change Tizanidine HCl (Zanaflex) 4 mg PO Q8H PRN PRN PRN Reason: SPASMS Last Admin: 12/28/19 13:18 Dose: 4 mg Documented by: Medical Necessity - Tobacco Use Smoking Status: Current every day smoker Tobacco Use: Cigarettes Assessment/Plan All Active Problems Pressure 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 Nonhealing infected MRSA ulcers cluster right abdominal wall. 2. Pressure injury ulcer right trochanteric area, Stage III. 3. MRSA. 4. UTI. 5. Sepsis. 6. Paraplegia. 7. History of IV drug use with Heroin. 8. Smoker. Wound culture showed MRSA and Proteus mirabilis. Vancomycin has been continued and the Zosyn was changed to Ceftriaxone. Continue Santyl wound care. There is a lot of bioburden, senescent cells, and devitalized tissue present. She would benefit from an operative debridement and excision of this tissue and associated fat necrosis. Doubt it extends to the underlying fascia. Would debride both the right abdominal wall and right trochanteric areas. Would send tissue to Pathology for analysis to rule out carcinoma and to Microbiology for culture. A positive culture may necessitate antibiotic modification. Postop wound care will be with the VAC. Home Health can get involved to assist with the VAC changes at home. Depending on how stable her home situation is, she may benefit from a short stay at an EC because of the complex wound care with the VAC as well as probable need for IV antibiotics. She states she is supposed to go to the [facility] tomorrow, [facility]. The patient is initially resistant to any surgical procedure because she is nervous. Then a couple of sentences later, she states that if she doesn't have the surgery while hospitalized, then she would never do it. I discussed with her that it is not an emergency. She can think about it and continue wound care. She can followup at the Wound Center to monitor the wound. Can then have further discussions at the Wound Center regarding operative intervention. It is doubtful it will heal without an operative debridement. After surgery, during the use of the VAC, if the patient gets tired of the wound care, can proceed with delayed complex secondary wound closure of the abdominal wall wound and skin grafting of the right trochanteric wound. Anticipate increased metabolic demands from the wounds and from the infection. Will check a Prealbumin and encourage nutritional supplementation with protein to help the healing process. Patient was informed of the risks and complications of the procedure including alternatives to surgery. These were discussed with the patient personally. Patient voices understanding and wishes to think about surgery and will followup at the Wound Center. She is indecisive and will say she wants the surgery and then a little later say she is nervous and anxious about it. If she changes her mind by tomorrow we can can always proceed with surgery on Sunday. Otherwise can followup at the Wound Center. Encouraged patient to stop smoking as it may have deleterious effects on wound healing. Inpatient E&M: 20643 Subs Hosp L2 - ICD-10 - L98.492, A49.02, L89.213, N39.0, A41.9, G82.20, F19.11, F17.200
[2019-12-28] MEDS: MELATONIN 3 MG TABLET PO (20:58)
[2019-12-29] VITALS (7 sets, daily range): BP systolic 104–121; BP diastolic 64–80; PULSE 74–99; RESP 18; TEMP 36.3–37.8; O2SAT 96–97
[2019-12-29] MEDS: Ketorolac 15 MG/ML Vial IV ×2 (01:42→10:24)
[2019-12-29] MEDS: 0.9% Saline Lock 10 ML Syringe IV ×2 (01:43→10:25)
[2019-12-29] MEDS: diazePAM 2 MG Tablet PO ×3 (06:34→20:49)
[2019-12-29] MEDS: tiZANidine HCl 2 MG Tablet 4 MG PO ×2 (06:34→17:51)
[2019-12-29] MEDS: Acetaminophen 325 MG Tablet 650 MG PO (06:34)
--- NOTE | 2019-12-29 09:49 | NURSING ---
wound photo: right lateral hip/lower abdomen
--- NOTE | 2019-12-29 09:51 | NURSING ---
wound photo: right great toe
--- NOTE | 2019-12-29 09:52 | NURSING ---
wound photo: right posterior heel
[2019-12-29] MEDS: Baclofen 10 MG Tablet 20 MG PO ×4 (10:22→20:49)
[2019-12-29] MEDS: Fludrocortisone Acetate 0.1 MG Tablet PO (10:22)
[2019-12-29] MEDS: Gabapentin 100 MG Capsule PO ×3 (10:22→17:18)
[2019-12-29] MEDS: DULoxetine Hcl 60 MG Capsule 120 MG PO (10:22)
--- NOTE | 2019-12-29 10:23 | CASEMGMT ---
Social Work Clinical updates faxed to [facility] for insurance precert. Plan: [facility], pending insurance approval BERNARD Salazar
[2019-12-29] MEDS: Ceftriaxone 1 GM/50 ML BAG IV (10:48)
[2019-12-29] MEDS: Collagenase 30gm Tube 1 APPLIC TOPICAL (10:50)
[2019-12-29 11:48] LABS: HIV - WCH Preliminary Reactive (Nonreactive); Hepatitis B Surface Antigen Non-Reactive (Nonreactive)
[2019-12-29 14:07] LABS: HCV Quant. RNA PCR 480 IU/mL (.)
--- NOTE | 2019-12-29 15:55 | PCM.PN.ID ---
Patient Problems: Active and Suspected Problems Sepsis (Acute) Blister of right heel with infection (Acute) Abdominal wall cellulitis (Acute) Subjective: Feeling ok, no fever. Reports last IVDU was a few weeks ago. Denies sharing needles. - Physical Exam Vitals/I&O's: Vital Signs Temp Pulse Resp BP Pulse Ox 98.3 F 78 18 109/67 96 12/29/19 09:00 12/29/19 11:00 12/29/19 09:00 12/29/19 09:00 12/29/19 09:00 Oxygen Delivery Method Room Air Weight: 82.6 kg Body Mass Index (BMI) 24.0 Intake and Output for Last 24 Hours 12/27/19 12/28/19 12/29/19 22:59 23:59 23:59 Intake Total 960 / 960 Output Total 3050 / 3050 Balance -2089 / -2089 General: Alert, Cooperative, No apparent distress Lungs: Clear to auscultation, Normal air movement Abdomen: Soft, Non Tender, Non-Distended Skin: Ulcer/ Wound - reviewed photos Microbiology Past 72 Hours 12/24/19 17:00 Wound - Abdominal Gram Stain - Final 12/24/19 17:00 Wound - Abdominal Wound Culture - Final Proteus mirabilis Meth. resistant Staph. aureus 12/27/19 18:20 Stool C. difficile DNA Amplification - Final 12/24/19 17:28 Blood Culture (Wb) - Line Draw Blood Culture - Preliminary No growth in 48 hours. 12/25/19 Unknown Wound - Abdominal Gram Stain - Final 12/25/19 Unknown Wound - Abdominal Wound Culture - Final Meth. resistant Staph. aureus Laboratory Results 12/27/19 06:00: Hep Bs Antigen Non-Reactive, HIV 1&2 Antibody Preliminary Reactive H 12/27/19 06:00: Miscellaneous Test Pending 12/29/19 13:30: Miscellaneous Test Pending 12/29/19 13:30: WBC Pending, RBC Pending, Hgb Pending, Hct Pending, MCV Pending, MCH Pending, MCHC Pending, RDW Pending, Plt Count Pending, Immature Gran % Pending, Neutrophils % Pending, Lymphocytes % Pending, Monocytes % Pending, Eosinophils % Pending, Basophils % Pending, Immature Gran # Pending, Neutrophils # Pending, Lymphocytes # Pending, Monocytes # Pending, Eosinophils # Pending, Basophils # Pending, Nucleated RBCs Pending, Immature Blood Cells Pending, % CD4 Cells Pending, Absolute CD4 Count Pending 12/29/19 13:30: HIV-1 RNA (PCR) log10 Pending, HIV-1 RNA Ultraquant PCR Pending 12/29/19 13:30: RPR Pending Current Medications Acetaminophen (Tylenol) 650 mg PO Q6H PRN PRN PRN Reason: Pain Score 1-10/Temp > 100.7 F Last Admin: 12/29/19 06:34 Dose: 650 mg Documented by: Baclofen (Lioresal) 20 mg PO 4X/DAY [facility] Last Admin: 12/29/19 13:34 Dose: 20 mg Documented by: Collagenase (Santyl) 1 applic TOPICAL DAILY [facility]; Protocol Last Admin: 12/29/19 10:50 Dose: 1 applicatio Documented by: Diazepam (Valium) 2 mg PO TID PRN PRN PRN Reason: ANXIETY Last Admin: 12/29/19 13:40 Dose: 2 mg Documented by: Duloxetine HCl (Cymbalta) 120 mg PO DAILY [facility] Last Admin: 12/29/19 10:22 Dose: 120 mg Documented by: Enoxaparin Sodium (Lovenox) 40 mg SC DAILY [facility] Last Admin: 12/29/19 10:22 Dose: Not Given Documented by: Fludrocortisone Acetate (Florinef) 0.1 mg PO DAILY@0800 [facility] Last Admin: 12/29/19 10:22 Dose: 0.1 mg Documented by: Gabapentin (Neurontin) 100 mg PO TIDCM [facility] Last Admin: 12/29/19 11:28 Dose: 100 mg Documented by: Vancomycin IV Pharmacy to Dose (1 ea/ Sodium Chloride) 500 mls @ 250 mls/hr IV PRN PRN; Protocol PRN Reason: Rx to Dose Vancomycin HCl 1,250 mg/ (Sodium Chloride) 275 mls @ 167 mls/hr IV Q8H [facility] Last Infusion: 12/29/19 13:27 Dose: Infused Documented by: Sodium Chloride () 250 mls @ 15 mls/hr IV .[id number] PRN PRN Reason: Saline Flush Sodium Chloride () 250 mls @ 15 mls/hr IV .[id number] PRN PRN Reason: Additional IVPB Infusion Ceftriaxone Sodium (Rocephin) 1 gm in 50 mls @ 100 mls/hr IV Q24 [facility] Last Infusion: 12/29/19 11:18 Dose: Infused Documented by: Ketorolac Tromethamine (Toradol (Bkc)) 15 mg IV Q6H PRN PRN PRN Reason: Pain Score 1-10 Stop: 01/03/20 06:56 Last Admin: 12/29/19 10:24 Dose: 15 mg Documented by: Melatonin (Melatonin) 3 mg PO QHS [facility] Last Admin: 12/28/19 20:58 Dose: 3 mg Documented by: Nutritional Formula (Jake - [place] Flavor) 1 packet PO BIDCM [facility] Last Admin: 12/29/19 10:22 Dose: Not Given Documented by: Nutritional Formula (Lactose Free) (Ensure Enlive) 120 ml PO 4X/DAY [facility] Ondansetron HCl (Zofran) 4 mg IV Q8H PRN PRN PRN Reason: NAUSEA/VOMITING Sodium Chloride () 10 - 40 ml IV UD PRN PRN Reason: Multilumen/Casanova Flush Last Admin: 12/29/19 10:25 Dose: 20 ml Documented by: Sodium Chloride (0.9% Nacl (Sterile) Posiflush) 10 - 40 ml IV UD PRN PRN Reason: Port access or dressing change Tizanidine HCl (Zanaflex) 4 mg PO Q8H PRN PRN PRN Reason: SPASMS Last Admin: 12/29/19 06:34 Dose: 4 mg Documented by: Medical Necessity - Tobacco Use Smoking Status: Current every day smoker Tobacco Use: Cigarettes Route of nutrition/ use of supplements: [] Nutritional Intake: [] IV Site: [] Charles Catheter: [] - Assessment/Plan Antibiotics: [] Assessment/Plan: [] Active and Suspected Problems Sepsis (Acute) Blister of right heel with infection (Acute) Abdominal wall cellulitis (Acute) sepsis due to infected abd wall wounds. Seen by Dr. Richard, wound cx showing MRSA and proteus. MRSA pcr (+). On vanc/ceftriaxone. Wounds improving, feeling better. No plan for surgery at this time. Plan on po abx at discharge. h/o IVDU, hep C, and tox screen (+) for amphetamines - recent IVDU. HIV preliminary (+) result, informed her of this, will order viral load, genotype, CD4. Will follow
--- NOTE | 2019-12-29 15:58 | PN_ITS ---
Patient Problems: Active and Suspected Problems Sepsis (Acute) Blister of right heel with infection (Acute) Abdominal wall cellulitis (Acute) Subjective: Pt wondering what the surgical plan is for her and states that she never saw Dr. Richard today at all. C/O pain/spasming in her B LE still and the inabilaty to sleep. states that the melatonin did nothing for her and that she would like to try something else. Pt goes back and forth c/o spasm and then sleep. Has been okay today per nsg Vitals/I&O's: Vital Signs Temp Pulse Resp BP Pulse Ox 98.3 F 78 18 109/67 96 12/29/19 09:00 12/29/19 11:00 12/29/19 09:00 12/29/19 09:00 12/29/19 09:00 Oxygen Delivery Method Room Air Weight: 82.6 kg Body Mass Index (BMI) 24.0 Intake and Output for Last 24 Hours 12/27/19 12/28/19 12/29/19 22:59 23:59 23:59 Intake Total 960 / 960 Output Total 3050 / 3050 Balance -2089 / -2089 General: Alert, Oriented x3, Cooperative, No apparent distress, Well developed, Well nourished Lungs: Clear to auscultation, Normal air movement, No rhonchi, No wheeze, No rales Cardiovascular: Regular rate, Regular Rhythm, Normal S1, Normal S2, No murmurs, No Ectopic Activity, No rub noted, No Gallop Abdomen: Bowel Sounds Present, Soft, Non Tender, Non-Distended, No hernias noted, - - dressing in place RLQ, suprapubic catheter in place Extremities: No clubbing, No cyanosis, No edema Skin: - - skin breakdown as noted on abd exam Neurological: - - B LE paraplegia Psych/Mental Status: Flat Affect, Depressed, - - A&O x 3 Microbiology Past 72 Hours 12/24/19 17:00 Wound - Abdominal Gram Stain - Final 12/24/19 17:00 Wound - Abdominal Wound Culture - Final Proteus mirabilis Meth. resistant Staph. aureus 12/27/19 18:20 Stool C. difficile DNA Amplification - Final 12/24/19 17:28 Blood Culture (Wb) - Line Draw Blood Culture - Preliminary No growth in 48 hours. 12/25/19 Unknown Wound - Abdominal Gram Stain - Final 12/25/19 Unknown Wound - Abdominal Wound Culture - Final Meth. resistant Staph. aureus Laboratory Results 12/27/19 06:00: Hep Bs Antigen Non-Reactive, HIV 1&2 Antibody Preliminary React nimisha H 12/27/19 06:00: Miscellaneous Test Pending 12/29/19 13:30: Miscellaneous Test Pending 12/29/19 13:30: WBC Pending, RBC Pending, Hgb Pending, Hct Pending, MCV Pending, MCH Pending, MCHC Pending, RDW Pending, Plt Count Pending, Immature Gran % Pending, Neutrophils % Pending, Lymphocytes % Pending, Monocytes % Pending, Eosinophils % Pending, Basophils % Pending, Immature Gran # Pending, Neutrophils # Pending, Lymphocytes # Pending, Monocytes # Pending, Eosinophils # Pending, Basophils # Pending, Nucleated RBCs Pending, Immature Blood Cells Pending, % CD4 Cells Pending, Absolute CD4 Count Pending 12/29/19 13:30: HIV-1 RNA (PCR) log10 Pending, HIV-1 RNA Ultraquant PCR Pending 12/29/19 13:30: RPR Pending Current Medications Acetaminophen (Tylenol) 650 mg PO Q6H PRN PRN PRN Reason: Pain Score 1-10/Temp > 100.7 F Last Admin: 12/29/19 06:34 Dose: 650 mg Documented by: Baclofen (Lioresal) 20 mg PO 4X/DAY [facility] Last Admin: 12/29/19 13:34 Dose: 20 mg Documented by: Collagenase (Santyl) 1 applic TOPICAL DAILY [facility]; Protocol Last Admin: 12/29/19 10:50 Dose: 1 applicatio Documented by: Diazepam (Valium) 2 mg PO TID PRN PRN PRN Reason: ANXIETY Last Admin: 12/29/19 13:40 Dose: 2 mg Documented by: Duloxetine HCl (Cymbalta) 120 mg PO DAILY [facility] Last Admin: 12/29/19 10:22 Dose: 120 mg Documented by: Enoxaparin Sodium (Lovenox) 40 mg SC DAILY [facility] Last Admin: 12/29/19 10:22 Dose: Not Given Documented by: Fludrocortisone Acetate (Florinef) 0.1 mg PO DAILY@0800 [facility] Last Admin: 12/29/19 10:22 Dose: 0.1 mg Documented by: Gabapentin (Neurontin) 100 mg PO TIDCM [facility] Last Admin: 12/29/19 11:28 Dose: 100 mg Documented by: Vancomycin IV Pharmacy to Dose (1 ea/ Sodium Chloride) 500 mls @ 250 mls/hr IV PRN PRN; Protocol PRN Reason: Rx to Dose Vancomycin HCl 1,250 mg/ (Sodium Chloride) 275 mls @ 167 mls/hr IV Q8H [facility] Last Infusion: 12/29/19 13:27 Dose: Infused Documented by: Sodium Chloride () 250 mls @ 15 mls/hr IV .[id number] PRN PRN Reason: Saline Flush Sodium Chloride () 250 mls @ 15 mls/hr IV .[id number] PRN PRN Reason: Additional IVPB Infusion Ceftriaxone Sodium (Rocephin) 1 gm in 50 mls @ 100 mls/hr IV Q24 [facility] Last Infusion: 12/29/19 11:18 Dose: Infused Documented by: Ketorolac Tromethamine (Toradol (Bkc)) 15 mg IV Q6H PRN PRN PRN Reason: Pain Score 1-10/10 Stop: 01/03/20 06:56 Last Admin: 12/29/19 10:24 Dose: 15 mg Documented by: Melatonin (Melatonin) 3 mg PO QHS [facility] Last Admin: 12/28/19 20:58 Dose: 3 mg Documented by: Nutritional Formula (Jake - [place] Flavor) 1 packet PO BIDCM [facility] Last Admin: 12/29/19 10:22 Dose: Not Given Documented by: Nutritional Formula (Lactose Free) (Ensure Enlive) 120 ml PO 4X/DAY [facility] Ondansetron HCl (Zofran) 4 mg IV Q8H PRN PRN PRN Reason: NAUSEA/VOMITING Sodium Chloride () 10 - 40 ml IV UD PRN PRN Reason: Multilumen/Casanova Flush Last Admin: 12/29/19 10:25 Dose: 20 ml Documented by: Sodium Chloride (0.9% Nacl (Sterile) Posiflush) 10 - 40 ml IV UD PRN PRN Reason: Port access or dressing change Tizanidine HCl (Zanaflex) 4 mg PO Q8H PRN PRN PRN Reason: SPASMS Last Admin: 12/29/19 06:34 Dose: 4 mg Documented by: Medical Necessity - Tobacco Use Smoking Status: Current every day smoker Tobacco Use: Cigarettes Assessment/Plan All Active Problems Pressure injury of trochanteric region of right hip, stage 3 (Acute) Infection with methicillin-resistant Staphylococcus aureus (MRSA) (Acute) Skin ulcer of abdominal wall with fat layer exposed (Acute) Cellulitis (Acute) Sepsis (Acute) Blister of right heel with infection (Acute) Abdominal wall cellulitis (Acute) Infected Non-Healing Abdominal Wounds -suspect is from urine -organisms are Proteus and MRSA -Blood cx neg at 48 hrs -remains on Vanc and Rocephin -ID/wound care/Plastics following -operative course is recommend by plastics--> possible tomorrow vs as outpt per Plastics note UTI 2/2 suprapubic catheter -Proteus and MRSA -Vanc and CTX per ID -Blood cx neg H/O IVDU -Hep studies ordered but all pending -HIV preliminarily +--> confirmation sent--> will d/w pt if confirmation is + -CD4 count sent -genotype sent -RPR sent -Tox + on admission for THC and amphetamines Chronic Microcytic Anemia -Was given venofer in past with improved hgb -continue supplementations -hgb is stable Hypokalemia -repeat am BMP Chronic Hypotension -continue Florinef -BP is stable Mild transaminitis -Hep studies Pending RLL Lung Nodule -will need outpt f/u imaging Paraplegia 2/2 Spinal Abscess -Neurogenic bladder with suprapubic catheter -Gabapentin initiated 12/26 -continue baclofen -continue Zanaflex for spasm 4 mg q 8 hrs prn Depression -Continue cymbalta Insomnia -trial low dose Ambian DVT prophylaxis -Lovenox Code Status -FULL Dispo -? OR tomorrrow vs SNF Inpatient E&M: 53154 Subs Hosp L2
[2019-12-29 19:13] LABS: HCV log 10 2.681 (.); Hepatitis B Core Ab Total Negative (Negative)
[2019-12-29] MEDS: Zolpidem Tartrate 5 MG Tablet PO (20:49)
[2019-12-29] MEDS: MELATONIN 3 MG TABLET PO (20:49)
[2019-12-30] VITALS (7 sets, daily range): BP systolic 115–126; BP diastolic 69–80; PULSE 74–102; RESP 16–18; TEMP 36.3–37.8; O2SAT 94–96
[2019-12-30] MEDS: tiZANidine HCl 2 MG Tablet 4 MG PO ×2 (02:23→12:13)
[2019-12-30] MEDS: Ketorolac 15 MG/ML Vial IV (05:43)
[2019-12-30] MEDS: diazePAM 2 MG Tablet PO ×2 (05:48→12:13)
[2019-12-30 07:03] LABS: Anion Gap 6 (5-15); BUN 9 mg/dL (7-18); BUN/Creat Ratio 20.5 RATIO (10-20); Chloride 108 mmol/L (98-107); Creatinine, Serum 0.44 mg/dL (0.55-1.02); EST Glomerular Filtration Rate 170 mL/min (>60); Est Glom Filt Rate - Afr Amer 206 mL/min (>60); Estimated Creatinine Clearance 206.35 ml/min; Glucose 104 mg/dL (74-106); Potassium 3.9 mmol/L (3.5-5.1); Sodium Level 140 mmol/L (136-145)
[2019-12-30] MEDS: Ceftriaxone 1 GM/50 ML BAG IV (09:06)
[2019-12-30] MEDS: Collagenase 30gm Tube 1 APPLIC TOPICAL (09:07)
[2019-12-30] MEDS: Fludrocortisone Acetate 0.1 MG Tablet PO (09:15)
[2019-12-30] MEDS: Baclofen 10 MG Tablet 20 MG PO ×2 (09:15→13:37)
[2019-12-30] MEDS: Gabapentin 100 MG Capsule PO ×2 (09:15→12:03)
[2019-12-30] MEDS: DULoxetine Hcl 60 MG Capsule 120 MG PO (09:15)
--- NOTE | 2019-12-30 10:28 | PN.ID_ITS ---
Patient Problems: Active and Suspected Problems Sepsis (Acute) Blister of right heel with infection (Acute) Abdominal wall cellulitis (Acute) Subjective: Some nausea this AM, no fever. No abd pain, no diarrhea. No cough or SOB. - Physical Exam Vitals/I&O's: Vital Signs Temp Pulse Resp BP Pulse Ox 98.6 F 84 18 126/80 H 95 12/30/19 08:30 12/30/19 08:30 12/30/19 08:30 12/30/19 08:30 12/30/19 08:30 Oxygen Delivery Method Room Air Weight: 82.6 kg Body Mass Index (BMI) 24.0 Intake and Output for Last 24 Hours 12/28/19 12/29/19 12/30/19 23:59 23:59 23:59 Intake Total 1475 / 1595 445 / 445 Output Total 3325 / 3675 1650 / 1650 Balance -1850 / -2080 -1205 / -1205 General: Alert, Cooperative, No apparent distress Lungs: Clear to auscultation, Normal air movement Cardiovascular: Regular rate, Regular Rhythm Abdomen: Soft, Non Tender, Non-Distended Skin: Ulcer/ Wound - bandaged Microbiology Past 72 Hours 12/24/19 17:28 Blood Culture (Wb) - Line Draw Blood Culture - Final No growth in 5 days. 12/24/19 17:00 Wound - Abdominal Gram Stain - Final 12/24/19 17:00 Wound - Abdominal Wound Culture - Final Proteus mirabilis Meth. resistant Staph. aureus 12/27/19 18:20 Stool C. difficile DNA Amplification - Final 12/25/19 Unknown Wound - Abdominal Gram Stain - Final 12/25/19 Unknown Wound - Abdominal Wound Culture - Final Meth. resistant Staph. aureus Laboratory Results 12/27/19 06:00: Hep B Core Total Ab Negative, HCV RNA Quant (PCR) 480, HCV RNA (PCR) IU log10 2.681, HCV RNA PCR Test Info Comment 12/27/19 06:00: Hep Bs Antigen Non-Reactive, HIV 1&2 Antibody Preliminary Reactive H 12/27/19 06:00: Miscellaneous Test Pending 12/29/19 13:30: Miscellaneous Test Pending 12/29/19 13:30: WBC Pending, RBC Pending, Hgb Pending, Hct Pending, MCV Pending, MCH Pending, MCHC Pending, RDW Pending, Plt Count Pending, Immature Gran % Pending, Neutrophils % Pending, Lymphocytes % Pending, Monocytes % Pending, Eosinophils % Pending, Basophils % Pending, Immature Gran # Pending, Neutrophils # Pending, Lymphocytes # Pending, Monocytes # Pending, Eosinophils # Pending, Basophils # Pending, Nucleated RBCs Pending, Immature Blood Cells Pending, % CD4 Cells Pending, Absolute CD4 Count Pending 12/29/19 13:30: HIV-1 RNA (PCR) log10 Pending, HIV-1 RNA Ultraquant PCR Pending 12/29/19 13:30: RPR Pending 12/30/19 05:30: Sodium 140, Potassium 3.9, Chloride 108 H, Carbon Dioxide 26.0, Anion Gap 6, BUN 9, Creatinine 0.44 L, Estim Creat Clear Calc 206.35, Est GFR (MDRD) Af Amer 206, Est GFR (MDRD) Non-Af 170, BUN/Creatinine Ratio 20.5 H, Glucose 104, Calcium 8.0 L Current Medications Acetaminophen (Tylenol) 650 mg PO Q6H PRN PRN PRN Reason: Pain Score 1-10/Temp > 100.7 F Last Admin: 12/29/19 06:34 Dose: 650 mg Documented by: Baclofen (Lioresal) 20 mg PO 4X/DAY [facility] Last Admin: 12/30/19 09:15 Dose: 20 mg Documented by: Collagenase (Santyl) 1 applic TOPICAL DAILY [facility]; Protocol Last Admin: 12/30/19 09:07 Dose: 1 applicatio Documented by: Diazepam (Valium) 2 mg PO TID PRN PRN PRN Reason: ANXIETY Last Admin: 12/30/19 05:48 Dose: 2 mg Documented by: Duloxetine HCl (Cymbalta) 120 mg PO DAILY [facility] Last Admin: 12/30/19 09:15 Dose: 120 mg Documented by: Enoxaparin Sodium (Lovenox) 40 mg SC DAILY [facility] Last Admin: 12/30/19 09:07 Dose: Not Given Documented by: Fludrocortisone Acetate (Florinef) 0.1 mg PO DAILY@0800 [facility] Last Admin: 12/30/19 09:15 Dose: 0.1 mg Documented by: Gabapentin (Neurontin) 100 mg PO TIDCM [facility] Last Admin: 12/30/19 09:15 Dose: 100 mg Documented by: Sodium Chloride () 250 mls @ 15 mls/hr IV .[id number] PRN PRN Reason: Saline Flush Sodium Chloride () 250 mls @ 15 mls/hr IV .[id number] PRN PRN Reason: Additional IVPB Infusion Ketorolac Tromethamine (Toradol (Bkc)) 15 mg IV Q6H PRN PRN PRN Reason: Pain Score 1-07/31 Stop: 01/03/20 06:56 Last Admin: 12/30/19 05:43 Dose: 15 mg Documented by: Melatonin (Melatonin) 3 mg PO QHS [facility] Last Admin: 12/29/19 20:49 Dose: 3 mg Documented by: Nutritional Formula (Jake - [place] Flavor) [facility] Last Admin: 12/30/19 09:07 Dose: Not Given Documented by: Nutritional Formula (Lactose Free) (Ensure Enlive) 120 ml PO 4X/DAY [facility] Last Admin: 12/30/19 09:07 Dose: Not Given Documented by: Ondansetron HCl (Zofran) 4 mg IV Q8H PRN PRN PRN Reason: NAUSEA/VOMITING Sodium Chloride () 10 - 40 ml IV UD PRN PRN Reason: Multilumen/Casanova Flush Last Admin: 12/29/19 10:25 Dose: 20 ml Documented by: Sodium Chloride (0.9% Nacl (Sterile) Posiflush) 10 - 40 ml IV UD PRN PRN Reason: Port access or dressing change Tizanidine HCl (Zanaflex) 4 mg PO Q8H PRN PRN PRN Reason: SPASMS Last Admin: 12/30/19 02:23 Dose: 4 mg Documented by: Trimethoprim/Sulfamethox[facility] (Bactrim Ds) [facility] Zolpidem Tartrate (Ambien (Generic)) 5 mg PO QHS PRN PRN PRN Reason: INSOMNIA Last Admin: 12/29/19 20:49 Dose: 5 mg Documented by: Medical Necessity - Tobacco Use Smoking Status: Current every day smoker Tobacco Use: Cigarettes Route of nutrition/ use of supplements: [] Nutritional Intake: [] IV Site: [] Charles Catheter: [] - Assessment/Plan Antibiotics: [] Assessment/Plan: [] Active and Suspected Problems Sepsis (Acute) Blister of right heel with infection (Acute) Abdominal wall cellulitis (Acute) sepsis due to infected abd wall wounds. Seen by Dr. Richard, wound cx showing MRSA and proteus. MRSA pcr (+). On vanc/ceftriaxone. Wounds improving, feeling better. No plan for surgery at this time. Will change to po bactrim, plan on 5 more days of abx. h/o IVDU, hep C, and tox screen (+) for amphetamines - recent IVDU. HIV preliminary (+) result, informed her of this, pending viral load, genotype, CD4. Will follow
[2019-12-30] MEDS: Smz/Tmp Ds Tablet 1 TABLET PO (12:03)
--- NOTE | 2019-12-30 12:35 | PCM.DC.SUM ---
Discharge Date and Diagnosis - Problem List Patient Problems: Active and Suspected Problems Sepsis (Acute) Blister of right heel with infection (Acute) Abdominal wall cellulitis (Acute) Date of Admission: 12/24/19 Date of Discharge: 12/30/19 - Primary Discharge Diagnosis Active and Suspected Problems Sepsis (Acute) Blister of right heel with infection (Acute) Abdominal wall cellulitis (Acute) - Secondary Discharge Diagnosis Chronic Problems Smoker (Chronic) History of intravenous drug abuse (Chronic) Heroin Paraplegia (Chronic) history of left lower tooth abcess (Chronic) Psoriasis (Chronic) Diarrhea (Chronic) Nausea and vomiting (Chronic) Esophageal reflux (Chronic) Hospital Course and Treatment Consultations 12/24/19 20:23 Consult: 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 She has an unfortunate history of having a spinal epidural abscess back in June which led to her being a paraplegic with no mobility in her lower extremities. This is related to her h/o IVDU. She does have a significant amount of spasticity but is not very mobile anymore. She had not checked in with her deputy juvenile officer and he came around to see her and noticed that she did not look very well. She was sent to the ED at that time. She was placed on IV ABX (vanc and rocephin) and cx of blood/urine and would were obtained. Proteus and MRSA grew out of both her abdominal wound and urine cx. Plastic and wound care followed the pt and her wound got significantly better during her stay. She is to f/u at the wound center as an outpt. with her h/o IVDU HIV studies and Hep C studies were done. Her Hep C resulted + with a + viral load and her preliminary HIV studies were + and confirmation was sent as well as CD4 studies, viral load and genotype studies. ID will be following up on this. She was converted to PO abx upon d/c (Bactrim) to complete for 5 days. Infected Non-Healing Abdominal Wounds -suspect is from urine -organisms are Proteus and MRSA -Blood cx NGTD x 5 -converted to Bactrim per ID to complete ABX -ID/wound care/Plastics following -Plastics not planning on surgical intervention at this time UTI 2/2 suprapubic catheter -Proteus and MRSA -Bactrim for 5 more days per ID -Blood cx neg H/O IVDU -Hep C+ -HIV preliminarily +--> confirmation sent--> pt aware per ID -CD4 count sent -genotype sent -RPR sent -Tox + on admission for THC and amphetamines Hep C -chronic infection -mgt per ID Chronic Microcytic Anemia -Was given venofer in past with improved hgb -continue supplementations -hgb is stable Hypokalemia -resolved Chronic Hypotension -continue Florinef -BP is stable Mild transaminitis -likely 2/2 chronic hep c infection RLL Lung Nodule -will need outpt f/u imaging Paraplegia 2/2 Spinal Abscess -Neurogenic bladder with suprapubic catheter -Gabapentin initiated 12/26 -continue baclofen -continue Zanaflex for spasm 4 mg q 8 hrs prn Depression -Continue cymbalta Insomnia -trial low dose Ambian DVT prophylaxis -Lovenox Code Status -FULL Patient Problems: Active and Suspected Problems Sepsis (Acute) Blister of right heel with infection (Acute) Abdominal wall cellulitis (Acute) Subjective: Pt nervous about leaving. Did sleep better last PM. - Physical Exam Vitals/I&O's: Vital Signs Temp Pulse Resp BP Pulse Ox 98.6 F 74 18 126/80 H 95 12/30/19 08:30 12/30/19 11:00 12/30/19 08:30 12/30/19 08:30 12/30/19 08:30 Oxygen Delivery Method Room Air Weight: 82.6 kg Body Mass Index (BMI) 24.0 Intake and Output for Last 24 Hours 12/28/19 12/29/19 12/30/19 23:59 23:59 23:59 Intake Total 1475 / 1595 1045 / 1045 Output Total 3325 / 3675 2950 / 2950 Balance -1850 / -2080 -1905 / -1905 General: Alert, Oriented x3, Cooperative, No apparent distress, Well developed, Well nourished HEENT: Atraumatic, PERRLA, EOMI, Normocephalic, EAC Clear Oral: Moist Mucosa, No Gingival or Mucosal Lesions/ Ulcerations, - - poor dentition, no thrush Neck: Supple, No JVD, Negative Hepatojugular Reflux, No Nuchal Rigidity, Trachea Midline, Thyroid Normal Size and Texture Lungs: Clear to auscultation, Normal air movement, No rhonchi, No wheeze, No rales Cardiovascular: Regular rate, Regular Rhythm, Normal S1, Normal S2, No murmurs, No Ectopic Activity, No rub noted, No Gallop Abdomen: Bowel Sounds Present, Soft, Non Tender, Non-Distended, No Hepato-splenomegaly, No hernias noted, - - LLQ dressing in place and redressed Extremities: No clubbing, No cyanosis, No edema, Capillary Refill Less than 3 Seconds Skin: No rashes Musculoskeletal: No Tenderness to Palpation of Joints or Extremities Lymphatic: No Cervical, Supraclavicular, or Inguinal Adenopathy Neurological: Cranial nerves II-XII grossly intact, - - B LE paraplegia Psych/Mental Status: Flat Affect, Depressed Microbiology Past 72 Hours 12/24/19 17:28 Blood Culture (Wb) - Line Draw Blood Culture - Final No growth in 5 days. 12/24/19 17:00 Wound - Abdominal Gram Stain - Final 12/24/19 17:00 Wound - Abdominal Wound Culture - Final Proteus mirabilis Meth. resistant Staph. aureus 12/27/19 18:20 Stool C. difficile DNA Amplification - Final 12/25/19 Unknown Wound - Abdominal Gram Stain - Final 12/25/19 Unknown Wound - Abdominal Wound Culture - Final Meth. resistant Staph. aureus Laboratory Results 12/27/19 06:00: Hep B Core Total Ab Negative, HCV RNA Quant (PCR) 480, HCV RNA (PCR) IU log10 2.681, HCV RNA PCR Test Info Comment 12/29/19 13:30: Miscellaneous Test Pending 12/29/19 13:30: WBC Pending, RBC Pending, Hgb Pending, Hct Pending, MCV Pending, MCH Pending, MCHC Pending, RDW Pending, Plt Count Pending, Immature Gran % Pending, Neutrophils % Pending, Lymphocytes % Pending, Monocytes % Pending, Eosinophils % Pending, Basophils % Pending, Immature Gran # Pending, Neutrophils # Pending, Lymphocytes # Pending, Monocytes # Pending, Eosinophils # Pending, Basophils # Pending, Nucleated RBCs Pending, Immature Blood Cells Pending, % CD4 Cells Pending, Absolute CD4 Count Pending 12/29/19 13:30: HIV-1 RNA (PCR) log10 Pending, HIV-1 RNA Ultraquant PCR Pending 12/29/19 13:30: RPR Pending 12/30/19 05:30: Sodium 140, Potassium 3.9, Chloride 108 H, Carbon Dioxide 26.0, Anion Gap 6, BUN 9, Creatinine 0.44 L, Estim Creat Clear Calc 206.35, Est GFR (MDRD) Af Amer 206, Est GFR (MDRD) Non-Af 170, BUN/Creatinine Ratio 20.5 H, Glucose 104, Calcium 8.0 L Current Medications Acetaminophen (Tylenol) 650 mg PO Q6H PRN PRN PRN Reason: Pain Score 1-10/Temp > 100.7 F Last Admin: 12/29/19 06:34 Dose: 650 mg Documented by: Baclofen (Lioresal) 20 mg PO 4X/DAY [facility] Last Admin: 12/30/19 09:15 Dose: 20 mg Documented by: Collagenase (Santyl) 1 applic TOPICAL DAILY [facility]; Protocol Last Admin: 12/30/19 09:07 Dose: 1 applicatio Documented by: Diazepam (Valium) 2 mg PO TID PRN PRN PRN Reason: ANXIETY Last Admin: 12/30/19 12:13 Dose: 2 mg Documented by: Duloxetine HCl (Cymbalta) 120 mg PO DAILY [facility] Last Admin: 12/30/19 09:15 Dose: 120 mg Documented by: Enoxaparin Sodium (Lovenox) 40 mg SC DAILY [facility] Last Admin: 12/30/19 09:07 Dose: Not Given Documented by: Fludrocortisone Acetate (Florinef) 0.1 mg PO DAILY@0800 [facility] Last Admin: 12/30/19 09:15 Dose: 0.1 mg Documented by: Gabapentin (Neurontin) 100 mg PO TIDCM [facility] Last Admin: 12/30/19 12:03 Dose: 100 mg Documented by: Sodium Chloride () 250 mls @ 15 mls/hr IV .[id number] PRN PRN Reason: Saline Flush Sodium Chloride () 250 mls @ 15 mls/hr IV .[id number] PRN PRN Reason: Additional IVPB Infusion Ketorolac Tromethamine (Toradol (Bkc)) 15 mg IV Q6H PRN PRN PRN Reason: Pain Score -07/31 Stop: 01/03/20 06:56 Last Admin: 12/30/19 05:43 Dose: 15 mg Documented by: Melatonin (Melatonin) 3 mg PO QHS [facility] Last Admin: 12/29/19 20:49 Dose: 3 mg Documented by: Nutritional Formula (Jake - [place] Flavor) [facility] Last Admin: 12/30/19 09:07 Dose: Not Given Documented by: Nutritional Formula (Lactose Free) (Ensure Enlive) 120 ml PO 4X/DAY [facility] Last Admin: 12/30/19 09:07 Dose: Not Given Documented by: Ondansetron HCl (Zofran) 4 mg IV Q8H PRN PRN PRN Reason: NAUSEA/VOMITING Sodium Chloride () 10 - 40 ml IV UD PRN PRN Reason: Multilumen/Casanova Flush Last Admin: 12/29/19 10:25 Dose: 20 ml Documented by: Sodium Chloride (0.9% Nacl (Sterile) Posiflush) 10 - 40 ml IV UD PRN PRN Reason: Port access or dressing change Tizanidine HCl (Zanaflex) 4 mg PO Q8H PRN PRN PRN Reason: SPASMS Last Admin: 12/30/19 12:13 Dose: 4 mg Documented by: Trimethoprim/Sulfamethoxazole ([facility]rim Ds) [facility] Last Admin: 12/30/19 12:03 Dose: 1 tablet Documented by: Zolpidem Tartrate (Ambien (Generic)) 5 mg PO QHS PRN PRN PRN Reason: INSOMNIA Last Admin: 12/29/19 20:49 Dose: 5 mg Documented by: Home Medications: Medications to take at Discharge Aspirin [Aspirin, Baby] 1 tab PO DAILY 10/19/19 Bacillus/Protease/Amylas/Lipas [Digest Adv Intensive Bowel Cap] 1 cap PO DAILY 10/19/19 Baclofen 1 tab PO 4X/DAY 10/19/19 Duloxetine HCl 120 mg PO DAILY 10/19/19 Fludrocortisone Acetate [Florinef] 1 tab PO DAILY 10/19/19 Melatonin 5 mg PO QHS 10/19/19 Midodrine HCl 10 mg PO TID 10/19/19 Diazepam [Valium] 5 mg PO Q8H PRN PRN 12/24/19 Oxybutynin Chloride [Oxybutynin Chloride ER] 10 mg PO DAILY 12/24/19 Primary Care Physician: Qamar Zimmer MD [Primary Care Provider] - Medical Necessity - Tobacco Use Smoking Status: Current every day smoker Tobacco Use: Cigarettes Meaningful Use Info Meaningful Use Diagnoses (Choose all that apply): None applicable Inpatient E&M: [id number] [facility]
--- NOTE | 2019-12-30 12:58 | DCINST_ITS ---
- Discharge Diagnoses Current Active Problems: Current Active and Chronic Problems Sepsis (Acute) Blister of right heel with infection (Acute) Abdominal wall cellulitis (Acute) You will use the following diet at home:: No restrictions Your food should be the consistency of: Regular Your liquids should be the consistency of: Regular/Thin Discharge Activity: Return to Normal Activity, May Not Shower - until ok with Dr. Richard Allergies/Adverse Reactions: Allergies No Known Allergies Allergy (Verified 12/24/19 14:32) Medications to take at Discharge Aspirin [Aspirin, Baby] 1 tab PO DAILY 10/19/19 Bacillus/Protease/Amylas/Lipas [Digest Adv Intensive Bowel Cap] 1 cap PO DAILY 10/19/19 Baclofen 1 tab PO 4X/DAY 10/19/19 Duloxetine HCl 120 mg PO DAILY 10/19/19 Fludrocortisone Acetate [Florinef] 1 tab PO DAILY 10/19/19 Melatonin 5 mg PO QHS 10/19/19 Midodrine HCl 10 mg PO TID 10/19/19 Diazepam [Valium] 5 mg PO Q8H PRN PRN 12/24/19 Oxybutynin Chloride [Oxybutynin Chloride ER] 10 mg PO DAILY 12/24/19 Primary Care Physician: Qamar Zimmer MD [Primary Care Provider] - Test Results: Test results from this visit will be discussed in further detail at your follow- up appointment, if applicable. Please Follow Up With: Wound Center/Dr. Richard When: as scheduled
--- NOTE | 2019-12-30 13:12 | PCM.TXEXTCAR ---
- Diet 12/24/19 20:23 Diet: Regular Diet Food consistency:: Regular Liquid Consistency:: Regular/Thin Is pt able to select menu?: Yes - Routine Orders/Code Status Suppository Type: Dulcolax 10mg Suppository Frequency: Daily PRN Routine Lab Work: CBC - In 3 days, BMP - In 3 days Code Status: Full Code - Wound(s) SUPRAPUBIC CATH SITE Wound Type: Puncture LEFT HEEL Wound Type: Skin Tear RIGHT HIP Wound Type: Pressure Injury RIGHT 1ST TOE Wound Type: Pressure Injury Dressing Change: Dry Sterile Dressing medical abdomen Wound Type: Abscess right abdomen Wound Type: wound of unknown etiology Dressing Change: santly with dry dressing left leg Wound Type: SCABBED ABRASION medial abdomen Wound Type: wound of unknown etiology right heel Wound Type: Pressure Injury Dressing Change: AntiMicrobial (Aquacel AG, etc) right Achilles Wound Type: Pressure Injury Dressing Change: Dry Sterile Dressing right lateral hip Wound Type: Pressure Injury Dressing Change: santyl with dry dressing right posterior hip/buttock Wound Type: Pressure Injury Dressing Change: applied Mepilex - Suggestions for Active Care Change Position every (hours): 2 - Therapies Physical Therapy: Eval and Treat Occupational Therapy: Eval and Treat - Problem/Diagnosis (1) Paraplegia Status: Chronic Current Visit: No (2) Pressure injury of trochanteric region of right hip, stage 3 Status: Acute Current Visit: No (3) Skin ulcer of abdominal wall with fat layer exposed Status: Acute Current Visit: No (4) Cellulitis Status: Acute Current Visit: No - Allergies/Procedures Done in Hospital Allergies/Adverse Reactions: Allergies No Known Allergies Allergy (Verified 12/24/19 14:32) Procedures: None, Central line placement - Type of Care/Length of Stay Estimated LOS: More Than 30 Days Type of Care Needed: Skilled Rehab Potential: Poor Prognosis: Poor - Additional Orders/Day of Discharge H&P will serve as current which was dated: 12/30/19 Day of Discharge: 12/30/19 - Dietary and Speech Recommendations Dietitian Recommendations/Changes: Continue regular diet. Will add Ensure Enlive w/ medpass for additional calories/protien if consumed. - Follow Up Care Primary Care Physician: Qamar Zimmer MD [Primary Care Provider] - Please Follow Up With: Wound Center/Dr. Richard When: as scheduled
--- NOTE | 2019-12-30 13:42 | CASEMGMT ---
Patient was approved to go to [facility]. TEODORO notified physician. TEODORO faxed orders to [facility]. Called [facility] and arranged for patient to get picked up at 3p via cot. TEODORO notified RN, patient, medical secretary, clinic charge nurse, and left a message for [facility]. Convalescent was completed on HENS. Plan: d/c to [facility] under skilled level of care on a convalescent stay. [facility] transported patient via cot. Elina ISSA SUPERVISOR FILES
--- NOTE | 2019-12-30 13:43 | PHA.DC.MR ---
Pharmacy Service has performed discharge medication reconciliation for this patient upon transfer to [facility]. The patient's discharge medication list was reviewed for discrepancies and discrepancies were resolved. Home Medications Aspirin [Aspirin, Baby] 1 tab PO DAILY 10/19/19 Bacillus/Protease/Amylas/Lipas [Digest Adv Intensive Bowel Cap] 1 cap PO DAILY 10/19/19 Baclofen 1 tab PO 4X/DAY 10/19/19 Duloxetine HCl 120 mg PO DAILY 10/19/19 Oxybutynin Chloride [Oxybutynin Chloride ER] 10 mg PO DAILY 12/24/19 Acetaminophen [Tylenol Tablet] 650 mg PO Q6H PRN PRN tab 12/30/19 Collagenase [Santyl] 1 applic TOPICAL DAILY tube 12/30/19 Diazepam [Valium] 2 mg PO TID PRN PRN 3 Days #9 tab 12/30/19 Enoxaparin [Lovenox] 40 mg SUBCUT DAILY syringe 12/30/19 Ensure Enlive 120 ml PO 4X/DAY liquid 12/30/19 Fludrocortisone Acetate [Florinef] 0.1 mg PO DAILY@0800 tab 12/30/19 Gabapentin [Neurontin] 100 mg PO TIDCM cap 12/30/19 Nutritional Supplement [Jake - [place]ANGE FLAVOR] 1 packet PO BIDCM packet 12/30/19 Smz/Tmp Ds [Bactrim Ds] 1 tab PO BIDCM #10 tab 12/30/19 Tizanidine HCl [Zanaflex] 4 mg PO Q8H PRN PRN tab 12/30/19 Zolpidem Tartrate [Ambien] 5 mg PO QHS PRN PRN 3 Days #3 tab 12/30/19
[2019-12-30 14:08] LABS: Absolute CD4 Helper 1007 /uL (359-1519); Basophils (Absolute) 0.1 x10E3/uL (0.0-0.2); Eosinophils 2 % (Not Estab.); Eosinophils (Absolute) 0.2 x10E3/uL (0.0-0.4); Hematocrit 34.4 % (34.0-46.6); Hemoglobin 10.7 g/dL (11.1-15.9); Immature Granulocytes 1 % (Not Estab.); Lymphs 18 % (Not Estab.); Lymphs (Absolute) 1.9 x10E3/uL (0.7-3.1); MCH 23.9 pg (26.6-33.0); MCHC 31.1 g/dL (31.5-35.7); MCV 77 fL (79-97); Monocytes 5 % (Not Estab.); Monocytes (Absolute) 0.6 x10E3/uL (0.1-0.9); Neutrophils 73 % (Not Estab.); Neutrophils (Absolute) 7.6 x10E3/uL (1.4-7.0); Platelets 395 x10E3/uL (150-450); RBC Count 4.47 x10E6/uL (3.77-5.28); RDW 14.5 % (11.7-15.4); WBC Count 10.5 x10E3/uL (3.4-10.8)
--- NOTE | 2019-12-30 15:06 | NURSING ---
Report called to [facility] nurse Alexia Hale informed pt has 3 meds from home along with her. Tele box returned to nurse station. Pt asking about valuables. Security has no valuables from any patients. Pt does not have any valuables reciept and there is no receipt on pt chart.
[2019-12-30 17:15] LABS: Immature Granulocytes Absolute 0.1 x10E3/uL (0.0-0.1)
[2019-12-31 13:15] LABS: HIV-1 RNA by PCR, Quant. < 20 copies/mL (.)
[2020-01-01 02:09] LABS: Rapid Plasmin Reagin (RPR) NONREACTIVE (NONREACTIVE)
== END 2019-12-30 15:06 | disposition skilled nursing facility (03) | DRG 720 ==
LOC: ED 18:30 → PCU 22:07
PROVIDERS: Internal Medicine; Internal Medicine Infectious Disease; Physician Assistant; Admitting Provider Family Medicine; Emergency Provider Emergency Medicine; PCP Family Medicine; Visit Provider Internal Medicine
DX: A41.9 Sepsis, unspecified organism (principal); G82.20 Paraplegia, unspecified; L03.311 Cellulitis of abdominal wall; B95.62 Methicillin resistant Staphylococcus aureus infection as the cause of diseases classified elsewhere; T83.518A Infection and inflammatory reaction due to other urinary catheter, initial encounter; B96.4 Proteus (mirabilis) (morganii) as the cause of diseases classified elsewhere; L89.613 Pressure ulcer of right heel, stage 3; N39.0 Urinary tract infection, site not specified; Y84.6 Urinary catheterization as the cause of abnormal reaction of the patient, or of later complication, without mention of misadventure at the time of the procedure; B18.2 Chronic viral hepatitis C; D50.9 Iron deficiency anemia, unspecified; I95.89 Other hypotension; R91.1 Solitary pulmonary nodule; N31.9 Neuromuscular dysfunction of bladder, unspecified; F32.9 Major depressive disorder, single episode, unspecified; L89.213 Pressure ulcer of right hip, stage 3; G47.00 Insomnia, unspecified; G09 Sequelae of inflammatory diseases of central nervous system; F17.210 Nicotine dependence, cigarettes, uncomplicated; E87.6 Hypokalemia; E83.42 Hypomagnesemia; E83.39 Other disorders of phosphorus metabolism; L40.9 Psoriasis, unspecified
CPT/HCPCS: 36415; 71045; 73630; 80048; 80053; 80202; 80307; 81001; 83540; 83550; 83605; 83735; 84100; 85025; 85610; 85730; 86361; 86592; 86703; 86704; 87040; 87070; 87077; 87086; 87088; 87186; 87205; 87340; 87493; 87522; 87536; 87640; 93005; 97110; 97163; 97803; 99285; 99406; J1756; J7030; J7040; J7050; A4216; C1751; J0295

== ENCOUNTER 2020-03-16 02:31 | Emergency (ER) | payer MEDICAID, SELFPAY ==
[2019-12-24 19:49] VITALS: BMI 24.0
[2020-03-16 02:41] VITALS: BP 137/59; PULSE 51; RESP 16; TEMP 37.6; O2SAT 93; BMI 24.8
[2020-03-16 02:47] VITALS: BP 137/59; PULSE 51; RESP 16; TEMP 37.5; TEMP 37.6; O2SAT 93
--- NOTE | 2020-03-16 02:47 | EKG12_ITS ---
Test Reason : DYSRHYTHMIA Blood Pressure : / mmHG Vent. Rate : 131 BPM Atrial Rate : 131 BPM P-R Int : 146 ms QRS Dur : 094 ms QT Int : 298 ms P-R-T Axes : 053 097 027 degrees QTc Int : 440 ms Sinus tachycardia Otherwise normal ECG Confirmed by LUIS ANGEL RAMOS, TAMMY ([id number]), writer editor JOE DESAI ([id number] on 03/18/2020 2:38:51 PM Referred By: BB Confirmed By:TAMMY PLASENCIA MD
--- NOTE | 2020-03-16 02:47 | RAD_ITS ---
STUDY: X-RAY CHEST REASON FOR EXAM: Female, 39 years old. chills, shaking. pt paraplegic. states this is what happens when she gets a UTI TECHNIQUE: Single frontal view of the chest. COMPARISON: December 24, 2019 FINDINGS: EKG leads artifacts. Scattered patchy opacities. No pneumothorax. No pleural effusion. Normal size heart. Normal mediastinum and rufino. Normal visualized pulmonary arteries. Normal visualized aortic arch and descending thoracic aorta. Evidence of prior cervical spine fusion partially visualized. Normal visualized ribs, clavicles, and shoulders. There is no demonstrated abnormality of the visualized soft tissue structures of the upper abdomen. RAD/Chest 1 View (Portable) IMPRESSION: Interval removal of the right internal jugular catheter. Scattered patchy opacities within the lungs. Correlate for infectious inflammatory process. Electronically Signed: Milton Villalobos, at 4:30 EDT Tel , Service support ,
--- NOTE | 2020-03-16 02:49 | ED.DCSUM_ITS ---
History of Present Illness Chief Complaint: General Illness Detail of Chief Complaint: Chills Informant: Patient Onset: Hours - Several Context: Gradual Onset Timing: Continuous Quality: Chills, shaky Location: All over Current Severity: Severe Maximum Severity: Severe Worsened by: Nothing Relieved by: Nothing Associated Symptoms: Spasms all over her body especially legs Narrative: Patient is a paraplegic from the chest down due to a spinal injury. She had wounds on her feet for which she was recently placed on antibiotics, she thinks cephalexin, she finished those around 2 days ago. She has recently noticed cl oudy urine with increased sediment. This past day, she started having malaise and chills. She has had these before with urinary infections. Prior similar symptoms: Yes Capacity - Capacity Assessment Tool Can the patient make a choice & communicate that choice?: Yes Can the patient understand benefits, risks and alternatives?: Yes Can the patient make a logical, rational choice?: Yes Is the choice the patient makes consistent w/ their values?: Yes Is there an impending, emergent risk to the patient?: Yes Does the patient have an Advance Directive?: No Is there a Surrogate Available?: No - Past Medical History (1) Infection with methicillin-resistant Staphylococcus aureus (MRSA) Status: Suspected (2) Esophageal reflux Status: Chronic (3) History of intravenous drug abuse Status: Chronic Comment: Heroin (4) Paraplegia Status: Chronic (5) Psoriasis Status: Chronic Past Medical History - Allergies and Home Meds Allergies/Adverse Reactions: Allergies Penicillins Adverse Reaction (Verified 03/16/20 02:49) PT UNSURE OF REACTION Primary Care Physician: Qamar Zimmer MD [Primary Care Provider] - Surgical History: - - suprapubic catheter placement Lives: Alone - With home health Smoking Status: Current every day smoker - Family History Maternal Family History: Reports: - - She reports that her mother has MS. Paternal Family History: Reports: - - Patient did not provide paternal medical history after several attempts. Review of Systems General: Reports: Chills, Malaise. Denies: Fever, Sweats Eyes: Denies: Visual changes - bilaterally, Diplopia ENT: Denies: Rhinorrhea, Sore throat Cardiovascular: Denies: Chest pain, Palpitations, Heart racing Respiratory: Denies: Dyspnea, Cough, Dyspnea on exertion Gastrointestinal: Reports: Diarrhea. Denies: Abdominal pain, Nausea, Vomiting, Melena, Hematochezia Genitourinary: Reports: - - Doing Charles. Cloudy urine recently.. Denies: Hematuria Musculoskeletal: Reports: Extremity Pain. Denies: Neck pain, Back pain Skin: Denies: Rash, Wounds Neurological: Reports: Weakness, Numbness. Denies: Headache Physical Exam Vital Signs/Narrative: Vital Signs Temp Pulse Resp BP Pulse Ox 03/16/20 02:41 99.6 F H 51 L 16 137/59 H 93 Inital Vital Signs reviewed: Yes General: Well nourished, Well developed, No Acute Distress - But tremulous Head: Normocephalic, Atraumatic Eyes: Perrl, EOMI ENT: Moist mucous membranes, No rhinorrhea Neck: Supple, Nontender, No lymphadenopathy Cardiovascular: Regular rate, Regular rhythm, No murmurs, Tachycardia Respiratory: No distress, CTA bilaterally, Chest nontender Abdomen: Soft, Nontender, Nondistended, Normal bowel sounds : - - Indwelling Charles, cloudy yellow urine without blood present in the catheter and bag Back: Nontender, Normal Inspection. Negative for: CVA tenderness Extremities: Nontender, No edema Skin: Normal color, No rash, No Trauma, - - Healing wounds on left first and second toes, right heel. No signs of abscess, cellulitis. Neurological: Alert, Oriented x3, Cranial nerves II-XII grossly intact, Parasthesia - Insensate below the chest, Weakness - Below the waist paralyzed Psychological: Normal affect, Normal Mood Diagnostic/Tx/Re-eval Impressions Chest X-Ray 03/16/20 02:47 IMPRESSION: Interval removal of the right internal jugular catheter. Scattered patchy opacities within the lungs. Correlate for infectious inflammatory process. Electronically Signed: Milton Villalobos, at 4:30 EDT Tel , Service support , 03/16/20 02:47 Chest 1 View (Portable) [RAD] Stat Laboratory Results 03/16/20 03/16/20 03/16/20 02:55 02:55 02:55 WBC 19.3 H RBC 5.23 Hgb 12.4 Hct 41.9 MCV 80.1 L MCH 23.7 L MCHC 29.6 L RDW Std Deviation 41.7 RDW Coeff of Domonique 14.5 Plt Count 288 MPV 9.9 Immature Gran % (Auto) 0.600 Neut % (Auto) 90.7 H Lymph % (Auto) 4.1 L [place] % (Auto) 4.0 Eos % (Auto) 0.3 Baso % (Auto) 0.3 Absolute Neuts (auto) 17.5 H Absolute Lymphs (auto) 0.80 L Nucleated RBC % 0 PT 13.1 INR 1.0 APTT 27.1 Sodium 138 Potassium 3.8 Chloride 102 Carbon Dioxide 32.0 Anion Gap 4 L BUN 12 Creatinine 0.49 L Estim Creat Clear Calc 185.29 Est GFR (MDRD) Af Amer 183 Est GFR (MDRD) Non-Af 151 BUN/Creatinine Ratio 24.6 H Glucose 113 H Lactic Acid Calcium 9.1 Total Bilirubin 0.50 AST 14 L ALT 19 Alkaline Phosphatase 131 H Troponin I < 0.015 Total Protein 7.9 Albumin 3.3 Globulin 4.6 H Albumin/Globulin Ratio 0.7 L Urine Color Urine Clarity Urine pH Ur Specific [place] Urine Protein Urine Glucose (UA) Urine Ketones Urine Occult Blood Urine Nitrite Urine Bilirubin Urine Urobilinogen Ur Leukocyte Esterase Urine RBC Urine WBC Ur Squamous Epith Cells Calcium Oxalate Crystal Urine Bacteria Urine Mucus 03/16/20 03/16/20 02:55 03:15 WBC RBC Hgb Hct MCV MCH MCHC RDW Std Deviation RDW Coeff of Domonique Plt Count MPV Immature Gran % (Auto) Neut % (Auto) Lymph % (Auto) [place] % (Auto) Eos % (Auto) Baso % (Auto) Absolute Neuts (auto) Absolute Lymphs (auto) Nucleated RBC % PT INR APTT Sodium Potassium Chloride Carbon Dioxide Anion Gap BUN Creatinine Estim Creat Clear Calc Est GFR (MDRD) Af Amer Est GFR (MDRD) Non-Af BUN/Creatinine Ratio Glucose Lactic Acid 0.7 Calcium Total Bilirubin AST ALT Alkaline Phosphatase Troponin I Total Protein Albumin Globulin Albumin/Globulin Ratio Urine Color Yellow Urine Clarity Sl. Cloudy Urine pH 5.0 Ur Specific [place] 1.030 Urine Protein 30 H Urine Glucose (UA) Normal Urine Ketones 5 H Urine Occult Blood 150 H Urine Nitrite Negative Urine Bilirubin 1 H Urine Urobilinogen 1 H Ur Leukocyte Esterase 500 H Urine RBC 25-50 SEEN Urine WBC 10-25 SEEN Ur Squamous Epith Cells 25-50 SEEN Calcium Oxalate Crystal 3+ Urine Bacteria 0 SEEN Urine Mucus 1+ - Rhythm Strip Rhythm Strip: Sinus Tach Rate: 131 Ectopy: None - EKG Initial EKG Interpretation: No Acute Injury Pattern, Sinus Tachycardia Prior: Unchanged - Medical Decision Making Urine is consistent with infection, she has a significant leukocytosis over 19, and her chest x-ray shows patchy infiltrates diffusely. On room air she has pulse ox is 93%, she denies dyspnea, she admits to a cough but she is minimizing it because she wants to go home. True nature of her cough is unknown. She is not coughing here when I see her in the emergency room clinically. She meets criteria for sepsis, she was having rigors, her temperature is increasing despite giving her Tylenol, and I advise admission with IV antibiotics further evaluation. She was given IV Rocephin empirically. Blood and urine cultures were sent. She refuses to stay and wants to go home. She understands the nature of all of this and the potential risks. We will discharge her home on antibiotics. Her to discharge, she states her legs feel numb. I asked for clarification since she is paraplegic, she states she usually does not feel them but now she is feeling numbness in them and states it is unusual. Again I advised her to stay, and she refuses. ED Disposition - Plan for ED Patient: Disposition: Against Medical Advice Diagnosis: Sepsis, Urinary tract infection, Lower respiratory tract infection Instructions: ED CYSTITIS Female Adult, ED PNEUMONITIS Adult Prescriptions: Sulfamethoxazole/Trimethoprim [Bactrim Ds Tablet] 1 ea PO BID #[id number] tab Prescription Printed Referrals: Qamar Zimmer MD [Primary Care Provider] - As soon as possible
[2020-03-16 03:05] LABS: Absolute Neutrophil Count 17.5 X10^3/uL (2.0-7.7); Bacteria 0 SEEN /hpf (None Seen); Basophil# 0.05 X10^3/uL; Basophil% 0.3 % (0-1); Eosinophil# 0.06 X10^3/uL; Eosinophils% 0.3 % (0-5); Hematocrit 41.9 % (37-47); Hemoglobin 12.4 g/dL (12.0-15.0); Lymphocyte % 4.1 % (19-41); Mean Corp Hgb Conc 29.6 g/dL (32-36); Mean Corpuscular Hgb 23.7 pg (27.0-32.0); Mean Corpuscular Volume 80.1 fL (81-99); Mean Platelet Vol. 9.9 fl (6.2-12.0); Monocyte# 0.78 X10^3/uL; NRBC Flagged by Analyzer 0 % (0-5); Neutrophil # 17.48 X10^3/uL (2.7-7.7); Neutrophil % 90.7 % (47-70); Platelet Count 288 K/mm3 (150-450); RBC Distribution Width CV 14.5 % (11.6-14.6); RBC Distribution Width SD 41.7 fl (35.1-43.9); Red Blood Count 5.23 M/mm3 (4.2-5.4); White Blood Count 19.3 K/mm3 (4.4-11.0)
[2020-03-16 03:06] LABS: Color, Urine Yellow (Yellow); Glucose, Dipstick Normal (Normal); Ketone-Dipstick 5 mg/dl (Negative); Leukocyte Esterase-Dipstick 500 /ul (Negative); Nitrite-Dipstick Negative (Negative); Occult Blood-Urine 150 /ul (Negative); Protein-Dipstick 30 mg/dl (Negative); Urine Bilirubin Dipstick 1 mg/dL (Negative); Urine Clarity Sl. Cloudy (Clear); Urine Urobilinogen 1 mg/dl (Normal)
[2020-03-16 03:14] LABS: Calcium Oxalate Crystals Ur 3+ /hpf (<or=2+); Mucous, Urine 1+ /hpf (<or=2+); Red Blood Cells-Urine 25-50 SEEN /hpf (0-5); Squamous Epithelial Cells - UA 25-50 SEEN /hpf (5-10); White Blood Cells 10-25 SEEN /hpf (0-5)
[2020-03-16 03:16] LABS: Prothrombin Time (Protime)PT. 13.1 SECONDS (11.7-14.9)
[2020-03-16 03:26] LABS: ALB/GLOB Ratio 0.7 RATIO (0.9-2.4); AST(SGOT) 14 U/L (15-37); Alanine Aminotransfer ALT/SGPT 19 U/L (13-56); Albumin, Serum 3.3 g/dL (3.2-5.0); Alkaline Phosphatase 131 U/L (45-117); Anion Gap 4 (5-15); BUN 12 mg/dL (7-18); BUN/Creat Ratio 24.6 RATIO (10-20); Calcium,Total 9.1 mg/dL (8.5-10.1); Chloride 102 mmol/L (98-107); Creatinine, Serum 0.49 mg/dL (0.55-1.02); EST Glomerular Filtration Rate 151 mL/min (>60); Est Glom Filt Rate - Afr Amer 183 mL/min (>60); Estimated Creatinine Clearance 185.29 ml/min; Globulin 4.6 g/dL (2.2-4.2); Glucose 113 mg/dL (74-106); Potassium 3.8 mmol/L (3.5-5.1); Protein, Total 7.9 g/dL (6.4-8.2); Sodium Level 138 mmol/L (136-145)
[2020-03-16 03:30] LABS: Partial Thromboplast Time 27.1 Seconds (24.1-36.2)
[2020-03-16] MEDS: 0.9% Normal Saline 1,000 ML 999 ML IV (03:31)
[2020-03-16] MEDS: Ceftriaxone 1 GM/50 ML BAG IV (03:42)
[2020-03-16 03:47] VITALS: TEMP 37.2
[2020-03-16 04:04] LABS: Lactic Acid 0.7 mmol/L (0.4-1.9)
[2020-03-16 04:49] VITALS: BP 133/61; PULSE 109; RESP 16; O2SAT 97
--- NOTE | 2020-03-16 07:01 | ED.RN ---
pt refused vitals after her iv was removed. why do I need to do that I'm leaving
== END 2020-03-16 07:01 | disposition left against medical advice (07) ==
PROVIDERS: Emergency Provider Emergency Medicine; PCP Family Medicine
DX: A41.9 Sepsis, unspecified organism (principal); N39.0 Urinary tract infection, site not specified; J22 Unspecified acute lower respiratory infection; K21.9 Gastro-esophageal reflux disease without esophagitis; G82.20 Paraplegia, unspecified; L40.9 Psoriasis, unspecified; Z87.440 Personal history of urinary (tract) infections; Z79.82 Long term (current) use of aspirin; Z79.899 Other long term (current) drug therapy; F17.200 Nicotine dependence, unspecified, uncomplicated
CPT/HCPCS: 71045; 80053; 81001; 83605; 84484; 85025; 85610; 85730; 87040; 87077; 87086; 87088; 87186; 93005; 96365; 96366; 99284; J7030; A4216

== ENCOUNTER 2020-05-02 20:52 | Emergency (ER) | payer MEDICAID, SELFPAY ==
[2020-05-02 20:53] VITALS: BP 105/68; PULSE 128; RESP 15; TEMP 36.8; O2SAT 98; BMI 22.4
[2020-05-02] MEDS: LORazepam 2 MG/ML Syringe 1 MG IV (22:17)
[2020-05-02] MEDS: 0.9% Normal Saline 1,000 ML 999 ML IV (22:17)
[2020-05-02 22:20] LABS: Absolute Lymphocyte Count 2.22 X10^3/uL (0.83-4.51); Absolute Neutrophil Count 10.9 X10^3/uL (2.0-7.7); Basophil# 0.06 X10^3/uL; Basophil% 0.4 % (0-1); Eosinophil# 0.06 X10^3/uL; Eosinophils% 0.4 % (0-5); Hematocrit 43.2 % (37-47); Hemoglobin 13.1 g/dL (12.0-15.0); Lymphocyte # 2.22 X10^3/ul (4.0); Lymphocyte % 15.8 % (19-41); Mean Corp Hgb Conc 30.3 g/dL (32-36); Mean Corpuscular Hgb 22.9 pg (27.0-32.0); Mean Corpuscular Volume 75.5 fL (81-99); Mean Platelet Vol. 10.6 fl (6.2-12.0); Monocyte# 0.78 X10^3/uL; Monocyte% 5.6 % (0-10); NRBC Flagged by Analyzer 0 % (0-5); Neutrophil # 10.85 X10^3/uL (2.7-7.7); Neutrophil % 77.4 % (47-70); Platelet Count 280 K/mm3 (150-450); RBC Distribution Width SD 43.5 fl (35.1-43.9); Red Blood Count 5.72 M/mm3 (4.2-5.4)
[2020-05-02 22:32] LABS: Anion Gap 5 (5-15); BUN 13 mg/dL (7-18); BUN/Creat Ratio 21.8 RATIO (10-20); Calcium,Total 8.9 mg/dL (8.5-10.1); Chloride 109 mmol/L (98-107); EST Glomerular Filtration Rate 119 mL/min (>60); Est Glom Filt Rate - Afr Amer 144 mL/min (>60); Estimated Creatinine Clearance 151.32 ml/min; Glucose 96 mg/dL (74-106); Magnesium 1.9 mg/dL (1.6-2.6); Potassium 4.3 mmol/L (3.5-5.1); Sodium Level 139 mmol/L (136-145)
--- NOTE | 2020-05-02 23:02 | ED.RN ---
PT IS VERY ANXIOUS AND HER LEGS ARE VERY RESTLESS. PT STATES SHE HASN'T HAD HER MEDICATIONS IN OVER 2 WEEKS BECAUSE THEY WERE STOLEN. [facility] WAS CALLED TO BEDSIDE TO PROVIDE A POLICE REPORT. PT DID NOT HAVE A PLAN ON HOW TO OBTAIN MORE MEDICATIONS. MULTIPLE RNS AND EYEGLASS CUTTER HAVE GIVEN EMOTIONAL SUPPORT TO PATIENT AND REPOSITIONED HER IN BED.
--- NOTE | 2020-05-02 23:09 | ED.VIS.GEN ---
History of Present Illness Chief Complaint: General Illness Past Medical History - Allergies and Home Meds Allergies/Adverse Reactions: Allergies Penicillins Adverse Reaction (Verified 05/02/20 20:58) PT UNSURE OF REACTION Primary Care Physician: Qamar Zimmer MD [Primary Care Provider] - Surgical History: - - suprapubic catheter placement Smoking Status: Current every day smoker - Family History Maternal Family History: Reports: - - She reports that her mother has MS. Paternal Family History: Reports: - - Patient did not provide paternal medical history after several attempts. Physical Exam Vital Signs/Narrative: Vital Signs Temp Pulse Resp BP Pulse Ox 05/02/20 20:53 98.3 F 128 H 15 105/68 98 ED Disposition - Plan for ED Patient: Disposition: Home or Assisted Living Diagnosis: Spasm Instructions: ED SPASM Muscle Referrals: Qamar Zimmer MD [Primary Care Provider] -
[2020-05-02] MEDS: cycloBENZAPRine HCl 10 MG Tablet PO (23:23)
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
--- NOTE | 2020-05-02 23:46 | ED.RN ---
PT asked numerous times how she is getting home. Different answers every time. PT MD carlene to bedside for reevaluation. PT wants [facility] to take her home. PT does not have her wheelchair and does not have a ramp to her house and would need the ambulette to pick her up and lift her into the house. Informed PT this service is not available. PT presented to ED via friends car. During discharge education, I asked pt who refills her medications, pt stated no one here, someone in [place] or somewhere. PT does not know the name of the MD who fills her meds. PT states its too cold to walk home, I guess I'll just have to stay here until morning. This RN asked PT how she was going to walk home if she was paralyzed? No good answer was provided. Discussed discharge method with Dr. Corley who approved wheelchair to [facility] where she can use the phone to call for a ride. PT has a phone with her that is charged. Assisted PT into wheelchair and taken to [facility] where there is an QUOTATION CHECKER door screener.
[2020-05-02 23:55] VITALS: BP 117/78; PULSE 80; RESP 16; O2SAT 95
== END 2020-05-02 23:56 | disposition home or self-care (01) ==
PROVIDERS: Emergency Provider Student in an Organized Health Care Education/Training Program; PCP Family Medicine
DX: R25.2 Cramp and spasm (principal); Z96.0 Presence of urogenital implants; Z79.899 Other long term (current) drug therapy; F17.200 Nicotine dependence, unspecified, uncomplicated
CPT/HCPCS: 80048; 83735; 85025; 96361; 96374; 99283; A4216

== ENCOUNTER 2020-05-09 18:07 | Inpatient (IN) | payer MEDICAID, SELFPAY ==
[2020-05-09 18:08] VITALS: BP 99/60; PULSE 96; RESP 16; TEMP 36.1; O2SAT 96; BMI 25.4
--- NOTE | 2020-05-09 18:26 | ED.DCSUM_ITS ---
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 She is a paraplegic and has experienced little to no pain, so did not think too much of it until she started developing more and more swelling of the area. When she used her hands to lift her right lower extremity, she felt like her thigh buckled in places that were not joints. Given that it is tighter today she called EMS to come to the hospital for evaluation, they applied a splint on it prior to arrival here. 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 She has regained function of both of her arms but not her legs and has no motor function there. Her sensory level is somewhere in her upper abdomen. She states it is not well-defined. She has a suprapubic catheter, and states that the output has been a little darker than usual lately, and in the last couple days she has noticed smelling foul-smelling discharge from the site, and some redness. She denies any fevers or other systemic symptoms. She has a wound on her right heel that has been healing since November, she states it has been continuing to look better and better and she tries to keep it clean and taken care of it. She does have an aide at home. - Past Medical History (1) Diarrhea Status: Chronic (2) Esophageal reflux Status: Chronic (3) History of intravenous drug abuse Status: Chronic Comment: Heroin (4) Paraplegia Status: Chronic (5) Psoriasis Status: Chronic (6) Infection with methicillin-resistant Staphylococcus aureus (MRSA) Status: Suspected Past Medical History - Allergies and Home Meds Allergies/Adverse Reactions: Allergies Penicillins Adverse Reaction (Verified 05/09/20 18:14) PT UNSURE OF REACTION Primary Care Physician: Qamar Zimmer MD [Primary Care Provider] - Surgical History: - - suprapubic catheter placement Lives: Alone Smoking Status: Current every day smoker - Family History Maternal Family History: Reports: - - She reports that her mother has MS. Paternal Family History: Reports: - - Patient did not provide paternal medical history after several attempts. Review of Systems General: Denies: Chills, Fever, Sweats Eyes: Denies: Visual changes - bilaterally, Diplopia ENT: Denies: Rhinorrhea, Sore throat Cardiovascular: Denies: Chest pain, Palpitations Respiratory: Denies: Dyspnea, Cough, Dyspnea on exertion Gastrointestinal: Denies: Abdominal pain, Nausea, Vomiting, Diarrhea, Melena, Hematochezia Genitourinary: Reports: - - see HPI w/r/t suprapubic cath changes. Denies: Dysuria, Hematuria, Frequency Musculoskeletal: Reports: Swelling - R thigh, Extremity Pain - R thigh. Denies: Back pain Skin: Reports: Wounds. Denies: Rash Neurological: Reports: Weakness, Numbness. Denies: Headache Physical Exam Vital Signs/Narrative: Vital Signs Temp Pulse Resp BP Pulse Ox 05/09/20 18:08 97.0 F L 96 16 99/60 96 Inital Vital Signs reviewed: Yes - Extremity Exam Right Femur: Deformity - At approximately junction of middle and distal third, with significant swelling in the right thigh with soft compartments. Right lower extremity is shortened compared with the left, including the knee. Pelvis is stable to AP compression. Skin intact. General: Well nourished, Well developed, - - Well-appearing, no distress, conversive in full sentences Head: Normocephalic, Atraumatic Eyes: Perrl, EOMI ENT: No Trauma, Moist Mucous Membranes Neck: Nontender, Full ROM Cardiovascular: Regular rate, Regular rhythm, No murmurs, - - Strong bilateral dorsalis pedis pulses with brisk cap refill bilaterally.. Negative for: Tachycardia Respiratory: No distress, CTA bilaterally, Chest nontender Abdomen: Soft, Nontender, Nondistended, Normal bowel sounds Back: Nontender Skin: Normal color, No rash, No Trauma, - - Healing noninfected wound right posterior heel. Mild amount of redness around the suprapubic catheter site with discharge present on her diaper at this location. No significant amount of expressible discharge. Urine in the catheter is nonbloody, dark, yellow, without large amount of sediment. Neurological: Alert, Oriented x3, Cranial nerves II-XII grossly intact, Weakness - Paraplegic, with sensory level somewhere above the umbilicus Psychological: Normal affect, Normal Mood Diagnostic/Tx/Re-eval Impressions Femur X-Ray 05/09/20 18:58 IMPRESSION: Displaced comminuted fracture of the right femoral shaft as detailed above. Electronically Signed: Yadiel Real MD at 19:34 EDT , Service support , Pelvis X-Ray 05/09/20 18:58 IMPRESSION: Old fracture of the inferior right pubic ramus. Avulsion fracture of the right ischium which is of indeterminate age. Electronically Signed: Yadiel Real MD at 19:37 EDT , Service support , 05/09/20 18:58 Femur Min 2 Views [RAD] Stat Pelvis 1 or 2 Views [RAD] Stat Laboratory Results 05/09/20 05/09/20 05/09/20 18:35 18:35 19:40 WBC 11.5 H RBC 4.09 L Hgb 9.7 L Hct 31.8 L MCV 77.8 L MCH 23.7 L MCHC 30.5 L RDW Std Deviation 49.3 H RDW Coeff of Domonique 17.6 H Plt Count 235 MPV 10.4 Immature Gran % (Auto) 0.300 Neut % (Auto) 65.2 Lymph % (Auto) 23.9 [place] % (Auto) 7.9 Eos % (Auto) 2.2 Baso % (Auto) 0.5 Absolute Neuts (auto) 7.5 Absolute Lymphs (auto) 2.75 Nucleated RBC % 0 Sodium 137 Potassium 3.7 Chloride 103 Carbon Dioxide 30.0 Anion Gap 4 L BUN 10 Creatinine 0.43 L Estim Creat Clear Calc 211.15 Est GFR (MDRD) Af Amer 212 Est GFR (MDRD) Non-Af 175 BUN/Creatinine Ratio 23.4 H Glucose 120 H Calcium 8.3 L Urine Color Yellow Urine Clarity Cloudy Urine pH 6.0 Ur Specific [place] 1.025 Urine Protein 100 H Urine Glucose (UA) Normal Urine Ketones 5 H Urine Occult Blood 25 H Urine Nitrite Positive H Urine Bilirubin 1 H Urine Urobilinogen 1 H Ur Leukocyte Esterase 500 H Urine RBC 0 SEEN Urine WBC 25-50 SEEN Ur Squamous Epith Cells 0-5 SEEN Urine Bacteria 1+ Urine Mucus 0 SEEN - Medical Decision Making X-rays show displaced overriding fracture of the right femoral shaft at the junction of the middle and distal thirds. There are also some avulsion fractures at the right ilium. The former is a surgical fracture however she is paraplegic. I discussed with Dr. Warner for orthopedics. He looked at the films and decided it would probably be best for this fracture to be surgically repaired. He advised that we admit her, n.p.o. after midnight, for evaluation in the morning and possible repair if medically cleared. The patient does have an infection in her suprapubic site, this is empirically treated with cephalexin but does not appear severe at this time or to be an abscess. ED Disposition - Plan for ED Patient: Disposition: [facility] Diagnosis: Closed displaced transverse fracture of shaft of right femur, Fracture, ilium closed, Paraplegia, Urinary catheter infection, UTI (urinary tract infection) Referrals: Qamar Zimmer MD [Primary Care Provider] -
[2020-05-09 18:46] LABS: Absolute Lymphocyte Count 2.75 X10^3/uL (0.83-4.51); Absolute Neutrophil Count 7.5 X10^3/uL (2.0-7.7); Basophil# 0.06 X10^3/uL; Basophil% 0.5 % (0-1); Eosinophil# 0.25 X10^3/uL; Eosinophils% 2.2 % (0-5); Hematocrit 31.8 % (37-47); Hemoglobin 9.7 g/dL (12.0-15.0); Lymphocyte # 2.75 X10^3/ul (4.0); Lymphocyte % 23.9 % (19-41); Mean Corp Hgb Conc 30.5 g/dL (32-36); Mean Corpuscular Hgb 23.7 pg (27.0-32.0); Mean Corpuscular Volume 77.8 fL (81-99); Mean Platelet Vol. 10.4 fl (6.2-12.0); Monocyte# 0.91 X10^3/uL; Monocyte% 7.9 % (0-10); NRBC Flagged by Analyzer 0 % (0-5); Neutrophil # 7.52 X10^3/uL (2.7-7.7); Neutrophil % 65.2 % (47-70); Platelet Count 235 K/mm3 (150-450); RBC Distribution Width CV 17.6 % (11.6-14.6); RBC Distribution Width SD 49.3 fl (35.1-43.9); Red Blood Count 4.09 M/mm3 (4.2-5.4); White Blood Count 11.5 K/mm3 (4.4-11.0)
--- NOTE | 2020-05-09 18:58 | RAD_ITS ---
STUDY: X-RAY - PELVIS REASON FOR EXAM: Female, 39 years old. Pt states 2 days ago she was doing a stretch of rt leg and heard a pop. Today noticed rt thigh is swollen and looks weird. Alose concerned suprapubic cath is infected. Foul smelling discharge noted. Paraplegic. TECHNIQUE: One view of the pelvis was obtained. COMPARISON: None. FINDINGS: There is a non-specific bowel gas pattern. Bilateral tubal ligation clips are seen. Normal bilateral iliac wings, sacroiliac joints and visualized sacrum. There appears be an old fracture of the inferior right pubic ramus. Normal pubic symphysis. There is an avulsion fracture of the right ischium which is of indeterminate age. Normal visualized right femoral head. Normal right acetabulum. Normal right hip joint. Normal visualized left femoral head. Normal left acetabulum. Normal left hip joint. RAD/Pelvis 1 or 2 Views IMPRESSION: Old fracture of the inferior right pubic ramus. Avulsion fracture of the right ischium which is of indeterminate age. Electronically Signed: Yadiel Real MD at 19:37 EDT , Service support ,
--- NOTE | 2020-05-09 18:58 | RAD_ITS ---
STUDY: X-RAY - RIGHT FEMUR REASON FOR STUDY: Female, 39 years old. Pt states 2 days ago she was doing a stretch of rt leg and heard a pop. Today noticed rt thigh is swollen and looks weird. PARAPLEGIC suprapubic catheter also TECHNIQUE: 4 view(s) of the femur. COMPARISON: None. FINDINGS: There is a comminuted fracture of the junction of proximal two thirds and distal one third of the right femoral shaft. There is an approximately 8 cm fracture fragment overriding, and posterior and medial displacement of the proximal fragment relative to the major distal fragment. Severe posterior angulation deformity is noted. Normal visualized soft tissue structure. RAD/Femur Min 2 Views IMPRESSION: Displaced comminuted fracture of the right femoral shaft as detailed above. Electronically Signed: Yadiel Real MD at 19:34 EDT , Service support ,
[2020-05-09 19:00] LABS: Anion Gap 4 (5-15); BUN 10 mg/dL (7-18); BUN/Creat Ratio 23.4 RATIO (10-20); Calcium,Total 8.3 mg/dL (8.5-10.1); Chloride 103 mmol/L (98-107); Creatinine, Serum 0.43 mg/dL (0.55-1.02); EST Glomerular Filtration Rate 175 mL/min (>60); Est Glom Filt Rate - Afr Amer 212 mL/min (>60); Estimated Creatinine Clearance 211.15 ml/min; Glucose 120 mg/dL (74-106); Potassium 3.7 mmol/L (3.5-5.1); Sodium Level 137 mmol/L (136-145)
--- NOTE | 2020-05-09 19:44 | PCM.HP.STD ---
Problem List (1) Closed displaced transverse fracture of shaft of right femur Status: Acute Qualifiers: Encounter type: initial encounter Qualified Code(s): S72.321A - Displaced transverse fracture of shaft of right femur, initial encounter for closed fracture (2) Abdominal wall cellulitis Status: Acute (3) Urinary catheter infection Status: Acute Qualifiers: Encounter type: initial encounter Qualified Code(s): T83.518A - Infection and inflammatory reaction due to other urinary catheter, initial encounter (4) Tobacco use Status: Chronic (5) Chronic hypotension Status: Chronic (6) Anxiety and depression Status: Chronic (7) Esophageal reflux Status: Chronic Qualifiers: Esophagitis presence: esophagitis presence not specified Qualified Code(s): K21.9 - Gastro-esophageal reflux disease without esophagitis (8) History of intravenous drug abuse Status: Chronic Comment: Heroin History of Present Illness Date of Admission: 05/09/20 Chief Complaint: R thigh pain, edema, redness, foul urine output The patient is a 39 y/o F w/ PMHx: Hx IVDA with 12/2019 + Hepatitis C status and preliminary + HIV with pending confirmation at that time noted to be Negative upon review, Hx Spinal abscess with paraplegia and neurogenic bladder with suprapubic catheter, Depression and Anxiety, Chronic hypotension on florinef, Chronic Fe Deficiency anemia requiring venofer prior who presents to the [facility] ED on 05/09/20 with history of stretching aggressively and heard a pop with progressively increasing swelling and changes to the right thigh with some increase sensitivity and sensation of fullness over the last several days prompting eventual ED presentation. She also concurrently notes recent increased discharge at the insertion site of her suprapubic catheter which is foul-smelling and notes that her urine has also been foul-smelling and cloudy. She denies any recent fever or chills associated. Work-up in the ED included T 97, heart rate 96, BP 99/60, respiratory rate 16, 96% on room air, CBC with WC 11.5, hemoglobin 9.7, platelet 235 without shift, BMP with BUN/creatinine 10/0.43, glucose 120, pelvis plain film with evidence of an old fracture of the inferior right pubic ramus, avulsion fracture of the right ischium of indeterminate age, right femur plain film with a displaced comminuted fracture of the right femoral shaft, urinalysis pending upon requested ED evaluation of patient. In the ED patient administered oral Keflex 5 mg p.o. x1. Orthopedic surgery consulted per ED, Dr. Warner noting intention for operative intervention. Past Medical History Past Medical History (Chronic Problems): Chronic Problems Tobacco use (Chronic) Chronic hypotension (Chronic) Anxiety and depression (Chronic) Smoker (Chronic) History of intravenous drug abuse (Chronic) Heroin Paraplegia (Chronic) history of left lower tooth abcess (Chronic) Psoriasis (Chronic) Diarrhea (Chronic) Nausea and vomiting (Chronic) Esophageal reflux (Chronic) Allergies Penicillins Adverse Reaction (Verified 05/09/20 18:14) PT UNSURE OF REACTION Home Medications: Ambulatory Orders Medication Instructions Recorded Aspirin [Aspirin, Baby] 1 tab PO DAILY 10/19/19 Baclofen 30 mg PO 4X/DAY 10/19/19 Duloxetine HCl 120 mg PO DAILY 10/19/19 Oxybutynin Chloride [Oxybutynin 10 mg PO DAILY 12/24/19 Chloride ER] Acetaminophen [Tylenol Tablet] 650 mg PO Q6H PRN PRN tab 12/30/19 Fludrocortisone Acetate [Florinef] 0.1 mg PO DAILY@0800 tab 12/30/19 Tizanidine HCl [Zanaflex] 4 mg PO Q8H PRN PRN tab 12/30/19 Clonazepam [Klonopin] 0.5 mg PO TID PRN 05/02/20 Gabapentin [Neurontin] 800 mg PO TIDCM 05/02/20 Midodrine HCl 10 mg PO TID 05/09/20 Multivitamin with Folic Acid 400 mcg PO DAILY 05/09/20 [Thera Tablet] Surgical History: - - Suprapubic catheter placement, debridements to abdominal wall and trochanteric areas secondary to pressure ulcers and nonhealing chronic wounds, prior history spinal abscess with intervention. Psychiatric History: Anxiety, Depression PRODUCTION LINE History: No pertinent PRODUCTION LINE history Lives: Friends Smoking Status: Current every day smoker - Patient with ongoing 1/2 pack/day cigarette tobacco usage. Tobacco Use: Cigarettes Alcohol: None Drugs: Marijuana, - - Prior history of IV drug abuse with heroin and also notes methamphetamine usage, clean since 2018 per report. - *Family History Maternal History Items: - - Mother with history of multiple sclerosis. Paternal History Items: - - Patient denies knowing any of her paternal family history and states she has no relationship nor does she know her father. Review of Systems Constitutional: Reports: Malaise, Weakness, Fatigue. Denies: Anorexia, Chills, Fever, Weight Change HEENT: Denies: Head Aches, Sinus Congestion, Sinus Drainage Cardiovascular: Denies: Chest Pain, Palpitations Respiratory: Denies: Cough, Shortness of Breath, Shortness of breath at rest, Shortness of breath upon exertion, Sputum production, Wheezing Gastrointestinal: Denies: Abdominal Pain, Nausea, Vomiting Genitourinary: Reports: - - Suprapubic catheter insertion site discharge, foul-smelling urine.. Denies: Dysuria Musculoskeletal: Reports: Leg Pain. Denies: Joint Pain, Joint Tenderness Skin: Reports: Skin Changes. Denies: Rash, Wounds Neurological: Reports: Focal weakness - Chronic paraplegia.. Denies: Numbness, Tingling Psychiatric: Reports: Anxiety, Depression. Denies: Homicidal Ideations, Suicidal Ideations Hematologic/ Lymphatic: Reports: Anemia. Denies: Easy Bruising, Easy Bleeding VTE Information - Inpt Only VTE Present on Admission: No VTE Mechan Device Prophylaxis: SCD's VTE Pharm Prophylaxis ordered?: No Reason prophylaxis not ordered:: Medical Contraindication Patient Problems: Active and Suspected Problems Closed displaced transverse fracture of shaft of right femur (Acute) Fracture, ilium closed (Acute) Urinary catheter infection (Acute) UTI (urinary tract infection) (Acute) Subjective: Seated upright in the ED bed, no acute distress, mildly fatigued, notes fullness sensation to the right thigh and frequently attempting to rub it. Objective: Physical Examination: General: awake, alert, oriented x 3 and cooperative, seated upright in the ED bed, no acute distress, notes some discomfort which is difficult to describe secondary to paraplegia but describes it as a fullness to the right thigh. Skin: normal color, turgor, no icterus, cyanosis except noted chronic noninfected appearing wound to the right posterior heel, david-suprapubic catheter erythema with some drainage, mildly foul-smelling. HEENT: AT/NC, EOMI, PERRLA, moderately dry MM, no carotid bruits or JVD noted. Lungs: CTA bilaterally, moderate effort, mild decrease BL bases, no rales, ronchi or wheezing. Heart: Regular rate and rhythm; no gallop, rub audible. Abdomen: soft, suprapubic catheter in place, see skin changes, NTTP, ND, normal BS, no HSM. Extremities: no cyanosis, clubbing, right thigh edematous, fullness sensation described. Neurological: patient awake, alert, oriented as noted; cognitive function intact; pupils equally reactive to light and accomodation; cranial nerves II-XII grossly normal, chronic paraplegia, strength severely global decreased. Psychiatric: affect appears mildly fatigued otherwise normal, no acute evidence of depressive or anxiety feelings. - Physical Exam Vitals/I&O's: Vital Signs Temp Pulse Resp BP Pulse Ox 97.0 F L 96 16 99/60 96 05/09/20 18:08 05/09/20 18:08 05/09/20 18:08 05/09/20 18:08 05/09/20 18:08 Oxygen Delivery Method Room Air Weight: 192 lb 14.472 oz Body Mass Index (BMI) 25.4 Laboratory Results 05/09/20 18:35: WBC 11.5 H, RBC 4.09 L, Hgb 9.7 L, Hct 31.8 L, MCV 77.8 L, MCH 23.7 L, MCHC 30.5 L, RDW Std Deviation 49.3 H, RDW Coeff of Domonique 17.6 H, Plt Count 235, MPV 10.4, Immature Gran % (Auto) 0.300, Neut % (Auto) 65.2, Lymph % (Auto) 23.9, Rooks % (Auto) 7.9, Eos % (Auto) 2.2, Baso % (Auto) 0.5, Absolute Neuts (auto) 7.5, Absolute Lymphs (auto) 2.75, Nucleated RBC % 0 05/09/20 18:35: Sodium 137, Potassium 3.7, Chloride 103, Carbon Dioxide 30.0, Anion Gap 4 L, BUN 10, Creatinine 0.43 L, Estim Creat Clear Calc 211.15, Est GFR (MDRD) Af Amer 212, Est GFR (MDRD) Non-Af 175, BUN/Creatinine Ratio 23.4 H, Glucose 120 H, Calcium 8.3 L Assessment/Plan All Active Problems Closed displaced transverse fracture of shaft of right femur (Acute) Fracture, ilium closed (Acute) Urinary catheter infection (Acute) UTI (urinary tract infection) (Acute) Pressure injury of trochanteric region of right hip, stage 3 (Acute) Skin ulcer of abdominal wall with fat layer exposed (Acute) Cellulitis (Acute) Sepsis (Acute) Blister of right heel with infection (Acute) Abdominal wall cellulitis (Acute) The patient is a 39 y/o F w/ PMHx: Hx IVDA with 12/2019 + Hepatitis C status and preliminary + HIV with pending confirmation at that time noted to be Negative upon review, Hx Spinal abscess with paraplegia and neurogenic bladder with suprapubic catheter, Depression and Anxiety, Chronic hypotension on florinef, Chronic Fe Deficiency anemia requiring venofer prior who presents to the [facility] ED on 05/09/20 with history of stretching aggressively and heard a pop with progressively increasing swelling and changes to the right thigh with some increase sensitivity and sensation of fullness with concurrent smelling urine and insertion suprapubic catheter site discharge. 1. Acute displaced comminuted fracture of the right femoral shaft: Suspect likely secondary to aggressive stretching however vitamin D levels pending, will admit to medical surgical floor, will maintain n.p.o. status after midnight for planned operative intervention, discussed case with Dr. Warner and patient with no obvious reason to delay surgical intervention especially as this will help with transfers and decreased risk of further injury to the right lower extremity, PRN oral and IV pain regimen, PRN antiemetics, continue treatment of suspected acute bladder infection with concurrent suprapubic catheter insertion site infection/cellulitis, fall precautions, position changes, planned PT/OT/case management for discharge planning following operative intervention. 2. Suspected Acute Urinary Bladder Infection with concern for concurrent insertion site infection complicated by neurogenic bladder with chronic suprapubic catheter: Patient reported foul-smelling urine, UA pending upon ED evaluation, concern for infection, will in the interim maintain on judicious IV fluids, await urine culture and UA, obtain insertion site discharge Cx and MRSA screen, monitor I&Os, initiate catheter change, continue IV Levaquin and Vanc w/ transition as able pending sensitivities and speciation. Bld cx x 2 obtained in the ED. 3. ? Acute on chronic microcytic anemia: Admission hemoglobin 9.7, 05/02/2020 hemoglobin 13.1 and prior to this on 03/16/2020 12.4 however since September patient range 9-11 which appears to be her baseline, will avoid any chemoprophylaxis and closely trend hemoglobin is unclear if truly acute on chronic anemia, has required venofer prior. 4. History of spinal abscess with paraplegia, chronic neurogenic bladder: Patient with history of spinal abscess with now paraplegia with neurogenic bladder with suprapubic catheter, concern for infection as noted, will need changed, will continue antibiotic broad-spectrum therapy as noted given history of MRSA and pneumonias. We will continue home gabapentin, Zanaflex and baclofen regimen. Frequent position changes, barrier cream, PT, OT, case management consultations for discharge planning. 5. Chronic hypotension: We will continue judicious fluids as well as Florinef regimen. If necessary may hold sedated regimen. 6. Anxiety and Depression: We will continue home Klonopin, duloxetine regimen. 7. Hepatitis C: Status confirmed 12/2019, encourage continued follow-up with infectious disease. HIV preliminary had been positive but on confirmation negative. 8. Tobacco Abuse: Encouraged cessation, inpatient consultation per RT, NR if desired. 9. DVT prophylaxis: SCDs, hold chemoprophylaxis given planned OR. 10. CODE status: Patient does not have healthcare power of toll service observer nor living will set up but notes that her sister is her next of kin and would be the individual to make decisions for her. Noted if she is interested to discuss setting these items up for information with social work/case management during admission. Discussed CODE status at length including difference between FULL code, DNR-CCA and DNR-CC status. Following discussions about the differences in these status, requested to remain full code and will continue thinking about this as in the past secondary to her paraplegia she has been DNR CCA no intubation but given her depression she notes is improved she is reconsidering. Advanced Care Planning Face to Face Time: 16 minutes. Inpatient E&M: 12765 Init Hosp L3 Procedures: 72842 Advncd Care Plan 30 Min
[2020-05-09] MEDS: Cephalexin 250 MG Capsule 500 MG PO (19:47)
[2020-05-09 19:49] LABS: Mucous, Urine 0 SEEN /hpf (<or=2+); Red Blood Cells-Urine 0 SEEN /hpf (0-5)
[2020-05-09 19:56] LABS: Color, Urine Yellow (Yellow); Glucose, Dipstick Normal (Normal); Ketone-Dipstick 5 mg/dl (Negative); Leukocyte Esterase-Dipstick 500 /ul (Negative); Nitrite-Dipstick Positive (Negative); Occult Blood-Urine 25 /ul (Negative); Protein-Dipstick 100 mg/dl (Negative); Specific Gravity, Urine 1.025 (1.002-1.030); Urine Bilirubin Dipstick 1 mg/dL (Negative); Urine Clarity Cloudy (Clear); Urine Urobilinogen 1 mg/dl (Normal)
[2020-05-09 20:06] LABS: Bacteria 1+ /hpf (None Seen); Squamous Epithelial Cells - UA 0-5 SEEN /hpf (5-10); White Blood Cells 25-50 SEEN /hpf (0-5)
[2020-05-09 20:35] VITALS: BP 109/78; PULSE 84; RESP 18; TEMP 37.3; O2SAT 98
[2020-05-09 21:52] VITALS: RESP 16
--- NOTE | 2020-05-09 21:52 | EKG12_ITS ---
Test Reason : PRE-OP Blood Pressure : / mmHG Vent. Rate : 090 BPM Atrial Rate : 090 BPM P-R Int : 140 ms QRS Dur : 118 ms QT Int : 362 ms P-R-T Axes : 052 082 047 degrees QTc Int : 442 ms Normal sinus rhythm Incomplete right bundle branch block Confirmed by LUIS ANGEL RAMOS, TAMMY ([id number]), film and video editor CORRINE DUNCAN ([id number]) on 05/12/2020 8:58:16 AM Referred By: Ethel De Los Santos Confirmed By:TAMMY PLASENCIA MD
[2020-05-09 22:05] LABS: Magnesium 1.7 mg/dL (1.6-2.6)
[2020-05-09 22:12] VITALS: BMI 23.9
[2020-05-09 22:21] VITALS: BMI 23.9
[2020-05-09 22:30] VITALS: BP 104/57; PULSE 103; RESP 16; TEMP 36.8; O2SAT 95
[2020-05-09] MEDS: levoFLOXacin IV 750 MG/150 ML BAG 100 MG IV (22:40)
[2020-05-09] MEDS: 0.9% Normal Saline 1,000 ML 100 ML IV (22:40)
[2020-05-09] MEDS: Baclofen 10 MG Tablet 30 MG PO (22:41)
[2020-05-09] MEDS: Famotidine 20 MG Tablet PO (22:41)
[2020-05-09] MEDS: Midodrine HCl 5 MG Tablet 10 MG PO (22:41)
[2020-05-09] MEDS: Gabapentin 800 MG Tablet PO (22:42)
[2020-05-09] MEDS: tiZANidine HCl 2 MG Tablet 4 MG PO (22:58)
[2020-05-09] MEDS: clonazePAM 0.5 MG Tablet PO (22:58)
[2020-05-09] MEDS: oxyCODONE 5 MG Tablet PO (22:58)
[2020-05-09 23:31] VITALS: RESP 16; O2SAT 95
[2020-05-09 23:59] VITALS: BMI 23.9
[2020-05-10] VITALS (14 sets, daily range): BP systolic 89–139; BP diastolic 48–69; PULSE 99–114; RESP 16–18; TEMP 36.5–37.6; O2SAT 95–99; BMI 23.9
[2020-05-10 00:43] LABS: Probe Check PASS; Specimen Processing Control PASS
[2020-05-10] MEDS: Morphine 2 MG/ML Syringe IV ×2 (00:46→02:48)
[2020-05-10] MEDS: Menthol/Lanolin/Calamine/Znox 113 GM Tube 1 APPLIC TOPICAL ×3 (00:53→21:25)
[2020-05-10 01:31] LABS: Probe Check PASS; Staph aureus DNA By PCR POSITIVE (Negative)
[2020-05-10 01:42] LABS: M R Staph aureus DNA By PCR POSITIVE (Negative)
--- NOTE | 2020-05-10 01:51 | PCM.RX.CS ---
Consult Pharmacy has been consulted to manage selected antiobiotic: Vancomycin Type of Consult: New start Suspected Infection: Skin/Soft tissue Labs: Sodium 137 mmol/L (136-145) 05/09/20 18:35 Potassium 3.7 mmol/L (3.5-5.1) 05/09/20 18:35 Chloride 103 mmol/L (98-107) 05/09/20 18:35 Carbon Dioxide 30.0 mmol/L (21.0-32.0) 05/09/20 18:35 Anion Gap 4 (5-15) L 05/09/20 18:35 BUN 10 mg/dL (7-18) 05/09/20 18:35 Creatinine 0.43 mg/dL (0.55-1.02) L 05/09/20 18:35 Est GFR (MDRD) Af Amer 212 mL/min (>60) 05/09/20 18:35 Est GFR (MDRD) Non-Af 175 mL/min (>60) 05/09/20 18:35 BUN/Creatinine Ratio 23.4 RATIO (10-20) H 05/09/20 18:35 Glucose 120 mg/dL (74-106) H 05/09/20 18:35 Goal Trough: 15-20 mcg/mL Pharmacy Plan for Drug Dosing: Pharmacy Service will continue to monitor and adjust dosing as required. Medications Vancomycin HCl (Vancomycin) 1,000 mg in 200 mls @ 200 mls/hr IV Q8H CASSIUS Discontinued Medications Vancomycin HCl 2,000 mg/ (Sodium Chloride) 540 mls @ 250 mls/hr IV X1 ONE Stop: 05/10/20 00:09 Last Admin: 05/10/20 00:52 Dose: 250 mls/hr Documented by: Follow-Up Labs: Trough Vancomycin Labs to be done on [date and time ordered]: 05/11 @ 0030
[2020-05-10] MEDS: oxyCODONE 5 MG Tablet PO (02:48)
[2020-05-10] MEDS: 0.9% Saline Lock 10 ML Syringe IV ×3 (02:50→10:54)
[2020-05-10] MEDS: Midodrine HCl 5 MG Tablet 10 MG PO ×2 (05:55→20:15)
[2020-05-10] MEDS: Morphine 4 MG/ML Syringe IV (05:55)
[2020-05-10 06:00] LABS: Absolute Lymphocyte Count 2.29 X10^3/uL (0.83-4.51); Absolute Neutrophil Count 7.9 X10^3/uL (2.0-7.7); Basophil# 0.05 X10^3/uL; Basophil% 0.4 % (0-1); Eosinophil# 0.28 X10^3/uL; Eosinophils% 2.4 % (0-5); Hematocrit 29.7 % (37-47); Hemoglobin 8.7 g/dL (12.0-15.0); Lymphocyte # 2.29 X10^3/ul (4.0); Mean Corp Hgb Conc 29.3 g/dL (32-36); Mean Corpuscular Hgb 23.1 pg (27.0-32.0); Mean Platelet Vol. 10.9 fl (6.2-12.0); Monocyte# 0.93 X10^3/uL; Monocyte% 8.1 % (0-10); NRBC Flagged by Analyzer 0 % (0-5); Neutrophil # 7.85 X10^3/uL (2.7-7.7); Neutrophil % 68.7 % (47-70); Platelet Count 236 K/mm3 (150-450); RBC Distribution Width CV 17.8 % (11.6-14.6); RBC Distribution Width SD 50.1 fl (35.1-43.9); Red Blood Count 3.76 M/mm3 (4.2-5.4); White Blood Count 11.5 K/mm3 (4.4-11.0)
[2020-05-10 06:07] LABS: International Normalized Ratio 1.2; Prothrombin Time (Protime)PT. 14.4 SECONDS (11.7-14.9)
[2020-05-10 06:08] LABS: Partial Thromboplast Time 29.5 Seconds (24.1-36.2)
[2020-05-10 06:25] LABS: ALB/GLOB Ratio 0.7 RATIO (0.9-2.4); AST(SGOT) 23 U/L (15-37); Alanine Aminotransfer ALT/SGPT 34 U/L (13-56); Albumin, Serum 2.6 g/dL (3.2-5.0); Alkaline Phosphatase 103 U/L (45-117); Anion Gap 1 (5-15); BUN 11 mg/dL (7-18); BUN/Creat Ratio 24.3 RATIO (10-20); Chloride 101 mmol/L (98-107); Creatinine, Serum 0.45 mg/dL (0.55-1.02); EST Glomerular Filtration Rate 164 mL/min (>60); Est Glom Filt Rate - Afr Amer 198 mL/min (>60); Estimated Creatinine Clearance 201.76 ml/min; Globulin 3.6 g/dL (2.2-4.2); Glucose 105 mg/dL (74-106); Potassium 3.9 mmol/L (3.5-5.1); Protein, Total 6.2 g/dL (6.4-8.2); Sodium Level 134 mmol/L (136-145)
[2020-05-10] MEDS: Tolterodine Tartrate 2 MG CAP.SA PO (08:12)
[2020-05-10] MEDS: Baclofen 10 MG Tablet 30 MG PO ×2 (08:12→21:25)
[2020-05-10] MEDS: Famotidine 20 MG Tablet PO ×2 (08:12→21:25)
[2020-05-10] MEDS: DULoxetine Hcl 60 MG Capsule 120 MG PO (08:12)
[2020-05-10] MEDS: Gabapentin 800 MG Tablet PO (08:12)
[2020-05-10] MEDS: Fludrocortisone Acetate 0.1 MG Tablet PO (08:13)
[2020-05-10] MEDS: oxyCODONE 5 MG Tablet 10 MG PO ×2 (08:26→20:15)
[2020-05-10] MEDS: Vancomycin IV 1,000 MG/200 ML BAG 200 MG IV ×2 (08:26→17:00)
--- NOTE | 2020-05-10 08:35 | NURSING ---
Patient reports that she is in pain and the pain meds aren't working. Made her aware that her IV pain medication was not due at this time but that I could give her oxyir since her surgery is not until later this afternoon. I also informed her that I would be giving her all of her regularly scheduled medications (cymbalta, neurontin, baclofen, pepcid, nicotine patch). I told her i was concerned that her bp was on the low side. She states I always run low. This RN verbalized understanding but also let her know that a lot of these medications can drop her BP and that it was not safe to give them all at once. I informed her that I would give her the regularly scheduled meds and the oxy ir and talk with Dr. Lees about giving the Klonopin.
--- NOTE | 2020-05-10 08:42 | NURSING ---
Spoke with Dr. Lees at this time and he states ok to give the Klonopin.
[2020-05-10] MEDS: clonazePAM 0.5 MG Tablet PO ×2 (08:45→21:35)
[2020-05-10 09:30] LABS: Vitamin D,25 Hydroxy 24.4 ng/mL
[2020-05-10] MEDS: HYDROmorphone 0.5 MG/0.5 ML SYRINGE IV ×2 (10:53→22:54)
[2020-05-10] MEDS: Nystatin Ointment 1 APPLIC TOPICAL ×2 (11:17→22:08)
--- NOTE | 2020-05-10 11:41 | CASEMGMT ---
Social Work Note TEODORO met with pt to discuss discharge plans. TEODORO introduced self and role at [facility]. Pt is alert and orientated x3. Pt states that she has been doing ok since being discharged home from [facility]. Per previous notes, pt was admitted to [facility] on 12/30/2019. Pt states that she was at [facility] for about a week and then discharged home. Pt states that she feels safe at home and she feels she is getting adequate care at home. Pt denied any recent substance abuse use. Pt is getting surgery today. SW asked pt about discharge plans after surgery. Pt states that she wishes to discharge home. Pt states that she has had [facility] in the past. Pt denied SNF at this time. TEODORO and RN CM to continue to follow for discharge planning. Plan: Pt wishes to discharge home. Lakesha Grullon BLACKSMITH APPRENTICE, PSYCHOLOGY CLINICIAN
--- NOTE | 2020-05-10 11:45 | PCM.PN.HOSP ---
Patient Problems: Active and Suspected Problems Closed displaced transverse fracture of shaft of right femur (Acute) Fracture, ilium closed (Acute) Urinary catheter infection (Acute) UTI (urinary tract infection) (Acute) Reason for Visit: right femur fracture. Subjective: Still with a lot of pain in her right leg. Patient states that given her paraplegia is used and feel anything but since a fracture has been very extreme and refractory to oxycodone and morphine. Patient stated that this happened the other day and while she was stretching while she was doing a figure 4. Basically she kept her left leg straight and then had her right leg bent with a foot at her left knee and then when she is pushing down it just fractured without much force. Vitals/I&O's: Vital Signs Temp Pulse Resp BP Pulse Ox 37.6 C H 104 H 16 139/59 H 96 05/10/20 08:09 05/10/20 10:53 05/10/20 08:09 05/10/20 10:53 05/10/20 08:09 Oxygen Delivery Method Room Air Weight: 82.3 kg Body Mass Index (BMI) 23.9 Intake and Output for Last 24 Hours 05/08/20 05/09/20 05/10/20 23:59 23:59 23:59 Intake Total 33.33 / 233.33 1645.00 / 1645.00 Output Total 900 / 900 Balance 33.33 / 233.33 745.00 / 745.00 General: Alert, No apparent distress HEENT: Atraumatic, Normocephalic Oral: Moist Mucosa, No Gingival or Mucosal Lesions/ Ulcerations Neck: No Nodes, Thyroid Normal Size and Texture Lungs: Clear to auscultation, Normal air movement, No rhonchi, No wheeze, No rales Cardiovascular: Regular rate, Regular Rhythm, Normal S1, Normal S2, No murmurs Abdomen: Bowel Sounds Present, Soft, Non Tender, Non-Distended Extremities: No edema, No Calf Tenderness Skin: No rashes, No breakdown Musculoskeletal: No Tenderness to Palpation of Joints or Extremities, No Muscle Wasting Psych/Mental Status: Normal Affect, Appropriate Laboratory Results 05/09/20 18:35: WBC 11.5 H, RBC 4.09 L, Hgb 9.7 L, Hct 31.8 L, MCV 77.8 L, MCH 23.7 L, MCHC 30.5 L, RDW Std Deviation 49.3 H, RDW Coeff of Domonique 17.6 H, Plt Count 235, MPV 10.4, Immature Gran % (Auto) 0.300, Neut % (Auto) 65.2, Lymph % (Auto) 23.9, [place] % (Auto) 7.9, Eos % (Auto) 2.2, Baso % (Auto) 0.5, Absolute Neuts (auto) 7.5, Absolute Lymphs (auto) 2.75, Nucleated RBC % 0 05/09/20 18:35: Sodium 137, Potassium 3.7, Chloride 103, Carbon Dioxide 30.0, Anion Gap 4 L, BUN 10, Creatinine 0.43 L, Estim Creat Clear Calc 211.15, Est GFR (MDRD) Af Amer 212, Est GFR (MDRD) Non-Af 175, BUN/Creatinine Ratio 23.4 H, Glucose 120 H, Calcium 8.3 L 05/09/20 18:35: Magnesium 1.7 05/09/20 19:40: Urine Color Yellow, Urine Clarity Cloudy, Urine pH 6.0, Ur Specific [place] 1.025, Urine Protein 100 H, Urine Glucose (UA) Normal, Urine Ketones 5 H, Urine Occult Blood 25 H, Urine Nitrite Positive H, Urine Bilirubin 1 H, Urine Urobilinogen 1 H, Ur Leukocyte Esterase 500 H, Urine RBC 0 SEEN, Urine WBC 25-50 SEEN, Ur Squamous Epith Cells 0-5 SEEN, Urine Bacteria 1+, Urine Mucus 0 SEEN 05/09/20 22:23: Blood Type A POSITIVE, Antibody Screen NEGATIVE 05/09/20 22:23: Vit D 1,25-Dihydroxy Cancelled 05/09/20 22:23: Vitamin D 25-Hydroxy 24.4 05/09/20 23:25: COVID-19 ([facility]) Not Detected 05/09/20 23:40: S.aureus Protein A PCR POSITIVE H, MRSA (PCR) POSITIVE H 05/10/20 05:25: WBC 11.5 H, RBC 3.76 L, Hgb 8.7 L, Hct 29.7 L, MCV 79.0 L, MCH 23.1 L, MCHC 29.3 L, RDW Std Deviation 50.1 H, RDW Coeff of Domonique 17.8 H, Plt Count 236, MPV 10.9, Immature Gran % (Auto) 0.400, Neut % (Auto) 68.7, Lymph % (Auto) 20.0, [place] % (Auto) 8.1, Eos % (Auto) 2.4, Baso % (Auto) 0.4, Absolute Neuts (auto) 7.9 H, Absolute Lymphs (auto) 2.29, Nucleated RBC % 0 05/10/20 05:25: Sodium 134 L, Potassium 3.9, Chloride 101, Carbon Dioxide 32.0, Anion Gap 1 L, BUN 11, Creatinine 0.45 L, Estim Creat Clear Calc 201.76, Est GFR (MDRD) Af Amer 198, Est GFR (MDRD) Non-Af 164, BUN/Creatinine Ratio 24.3 H, Glucose 105, Calcium 8.0 L, Total Bilirubin 0.30, AST 23, ALT 34, Alkaline Phosphatase 103, Total Protein 6.2 L, Albumin 2.6 L, Globulin 3.6, Albumin/Globulin Ratio 0.7 L 05/10/20 05:25: PT 14.4, INR 1.2, APTT 29.5 Current Medications Acetaminophen (Tylenol) 650 mg PO Q6H PRN PRN PRN Reason: Pain Score 1-10/Temp > 100.7 F Al Hydroxide/Mg Hydroxide (Mylanta Ii) 30 ml PO Q6H PRN PRN PRN Reason: Gastric Burning Albuterol Sulfate (Ventolin Aerosols) 2.5 mg INHALATION Q2H PRN PRN PRN Reason: Dyspnea, wheezing Baclofen (Lioresal) 30 mg PO 4X/DAY [facility] Last Admin: 05/10/20 08:12 Dose: 30 mg Documented by: Calamine/Phenol (Calmoseptine Ointment) 1 applic TOPICAL 4X/DAY [facility]; Protocol Last Admin: 05/10/20 08:11 Dose: 1 applicatio Documented by: Clonazepam (Klonopin) 0.5 mg PO TID PRN PRN PRN Reason: ANXIETY Last Admin: 05/10/20 08:45 Dose: 0.5 mg Documented by: Dextrose (D50w Syringe) 0 gm IV X1 PRN; Protocol PRN Reason: Hypoglycemia Duloxetine HCl (Cymbalta) 120 mg PO DAILY [facility] Last Admin: 05/10/20 08:12 Dose: 120 mg Documented by: Famotidine (Pepcid) 20 mg PO BID [facility] Last Admin: 05/10/20 08:12 Dose: 20 mg Documented by: Fludrocortisone Acetate (Florinef) 0.1 mg PO DAILY@0800 [facility] Last Admin: 05/10/20 08:13 Dose: 0.1 mg Documented by: Gabapentin (Neurontin) 800 mg PO TIDCM [facility] Last Admin: 05/10/20 08:12 Dose: 800 mg Documented by: Glucagon () 1 mg IM .X1 PRN PRN Reason: Hypoglycemia Guaifenesin (Robitussin) 20 ml PO Q4H PRN PRN PRN Reason: COUGH Hydralazine HCl (Apresoline Iv) 10 mg IV Q4H PRN PRN PRN Reason: SBP > 160 Hydromorphone HCl (Dilaudid Inj) 0.5 mg IV Q2H PRN PRN PRN Reason: Pain Score 6-10/10 Last Admin: 05/10/20 10:53 Dose: 0.5 mg Documented by: Sodium Chloride () 1,000 mls @ 100 mls/hr IV .Q10H [facility] Last Infusion: 05/10/20 09:26 Dose: 100 mls/hr Documented by: Vancomycin IV Pharmacy to Dose (1 ea/ Sodium Chloride) 500 mls @ 250 mls/hr IV X1 PRN; Protocol PRN Reason: Rx to Dose Levofloxacin (Levaquin Iv) 750 mg in 150 mls @ 100 mls/hr IV Q24H [facility] Last Infusion: 05/10/20 00:10 Dose: Infused Documented by: Sodium Chloride () 250 mls @ 15 mls/hr IV .[id number] PRN PRN Reason: Saline Flush Vancomycin HCl (Vancomycin) 1,000 mg in 200 mls @ 200 mls/hr IV Q8H [facility] Last Infusion: 05/10/20 09:26 Dose: Infused Documented by: Magnesium Hydroxide (Milk Of Magnesia) 30 ml PO DAILY PRN PRN PRN Reason: Constipation Melatonin (Melatonin) 3 mg PO QHS PRN PRN PRN Reason: INSOMNIA Midodrine (Proamatine) 10 mg PO TID [facility] Last Admin: 05/10/20 05:55 Dose: 10 mg Documented by: Nicotine (Nicoderm Cq (Pbkc)) 14 mg TRANSDERM. DAILY [facility] Last Admin: 05/10/20 08:13 Dose: 14 mg Documented by: Nystatin (Mycostatin) 1 applic TOPICAL BID [facility]; Protocol Last Admin: 05/10/20 11:17 Dose: 1 applicatio Documented by: Ondansetron HCl (Zofran) 4 mg IV Q8H PRN PRN PRN Reason: NAUSEA/VOMITING Oxycodone HCl (Oxyir) 10 mg PO Q4H PRN PRN PRN Reason: Pain Score 4-5/10 Last Admin: 05/10/20 08:26 Dose: 10 mg Documented by: Prochlorperazine Edisylate (Compazine Iv) 5 mg IV Q4H PRN PRN PRN Reason: Breakthrough nausea/vomiting Psyllium Hydrophilic Mucilloid (Metamucil) 1 packet PO DAILY PRN PRN PRN Reason: Constipation Senna/Docusate Sodium (Senokot-S, Prisca-Colace) 2 tablet PO BID PRN PRN PRN Reason: Constipation Sodium Chloride () 10 - 40 ml IV UD PRN PRN Reason: SALINE FLUSH Last Admin: 05/10/20 10:54 Dose: 10 ml Documented by: Throat Lozenges (Cepacol Sore Throat Lozenge) 1 lozenge MUCOUS MEM Q2H PRN PRN PRN Reason: SORE THROAT Tizanidine HCl (Zanaflex) 4 mg PO Q8H PRN PRN PRN Reason: SPASMS Last Admin: 05/09/20 22:58 Dose: 4 mg Documented by: Tolterodine Tartrate (Detrol La) 2 mg PO DAILY [facility] Last Admin: 05/10/20 08:12 Dose: 2 mg Documented by: STROKE Vital Signs/Narrative: Vital Signs Temp Pulse Resp BP BP Pulse Ox 05/10/20 10:53 104 H 139/59 H 05/10/20 08:09 37.6 C H 114 H 16 106/49 L 96 Medical Necessity - Tobacco Use Smoking Status: Current every day smoker Tobacco Use: Cigarettes Assessment/Plan All Active Problems Closed displaced transverse fracture of shaft of right femur (Acute) Fracture, ilium closed (Acute) Urinary catheter infection (Acute) UTI (urinary tract infection) (Acute) Pressure injury of trochanteric region of right hip, stage 3 (Acute) Skin ulcer of abdominal wall with fat layer exposed (Acute) Cellulitis (Acute) Sepsis (Acute) Blister of right heel with infection (Acute) Abdominal wall cellulitis (Acute) 1. Right femur fracture: Essentially a low impact injury. Contributed by osteopenia or osteoporosis. Plan is for surgery at 1400 today. 25-hydroxy vitamin D level is 24.4. Will initiate 50,000 units of ergocalciferol for a total of 8 weeks and then afterwards, start 2000 units of cholecalciferol. Goal level is 50. Advised checking after patient has completed the 2 months of ergocalciferol. Patient is paraplegic but still having significant pain. Will optimize her pain control with hydromorphone 0.5 mg every 2 hours as needed. Anticipate that her pain will be improved though not relieved by surgery. 2. Possible urinary tract infection: Patient had positive nitrates 500 leuk esterase 25-50 white blood cells and 1+ bacteria. Follow-up urine culture. Previous culture back in March 18 was Pseudomonas [place] which was sensitive to Cipro, gentamicin, imipenem, levofloxacin and tobramycin. It was intermediate to Pipracil/tazobactam. I am unclear if this is actual true infection versus colonization. Will hold off on any additional antibiotics at this time and observe. 3. Suprapubic catheter site irritation: Unclear if this is actual treatment bacterial infection. Favoring given the matted appearance that this is more consistent with Amira intertrigo. Will add nystatin topical. Would continue with the vancomycin for now. 4. Microcytic anemia: Hemoglobin has dropped down from 13.1 earlier this month on the 12th to now 8.7. Will check iron studies plus B12 and folate levels. No indication to transfuse at this time. 5. Chronic conditions: Paraplegia, chronic hypertension, anxiety, depression, hepatitis C. Overall stable but complicates the overall picture. 6. VTE prophylaxis: Currently with SCDs. Add chemical prophylaxis postoperatively. Inpatient E&M: 44112 Subs Hosp L2
[2020-05-10 12:57] LABS: Vitamin B12 422 pg/mL (211-911)
--- NOTE | 2020-05-10 14:07 | NURSING ---
Dr. Warner called to give this RN order for Ance[facility] 2G IV hospital account liaison to OR. When placing order it was noted that the patient had a PCN allergy. The patient was questioned about this and she states she does not know what her allergy to PCN is. Dr. Warner was notified of this and states that there is minimal cross reactivity so unless the patient states her reaction is anaphylaxis it is ok to use antibiotic. Eddi in pharmacy made aware of same. New order placed.
[2020-05-10 14:39] LABS: Ferritin 62 ng/mL (8-252); Iron 10 ug/dL (50-170); Iron Binding Capacity,Total 266 ug/dL (250-450); PERCENT IRON SATURATION 3.8 % (15.0-55.0)
--- NOTE | 2020-05-10 14:42 | NURSING ---
Patient off unit to OR
--- NOTE | 2020-05-10 15:48 | CON.PCM_ITS ---
Reason for Consult Date of Consultation: 05/10/20 Reason for Consultation: Right femoral shaft fracture History of Present Illness: The patient is a 39 year old F [with multiple medical comorbidities including history of IV drug abuse who admits to being sober for the past year. She also is hepatitis C positive and HIV positive. She smokes half to 1 pack of cigarettes per day and has done so for the past 10 to 15 years. She is a paraplegic and has been this way since June 2019 from a spinal abscess. She is still under the care of a neurologist at this time. She was stretching aggressively this past Sunday when she heard a pop and had increased pain and swelling over the next day or so. She does not have normal sensation or function of the lower extremities due to the paralysis. She is wheelchair- bound. She lives at home with a friend and has someone who comes in and helps care for her regularly. She came to the emergency department yesterday x-rays revealed a femoral shaft fracture. She was admitted and orthopedics was consulted. She claims that the leg was normal and pain-free prior to the injury. She did not fall she did not hit her head or lose consciousness. She also has a suprapubic catheter and has been complaining of discharge and foul smell from the insertion site.] Past Medical History Past Medical History (Chronic Problems): Chronic Problems Tobacco use (Chronic) Chronic hypotension (Chronic) Anxiety and depression (Chronic) Smoker (Chronic) History of intravenous drug abuse (Chronic) Heroin Paraplegia (Chronic) history of left lower tooth abcess (Chronic) Psoriasis (Chronic) Diarrhea (Chronic) Nausea and vomiting (Chronic) Esophageal reflux (Chronic) Allergies Penicillins Adverse Reaction (Verified 05/09/20 18:14) PT UNSURE OF REACTION Home Medications: Ambulatory Orders Medication Instructions Recorded Aspirin [Aspirin, Baby] 1 tab PO DAILY 10/19/19 Baclofen 30 mg PO 4X/DAY 10/19/19 Duloxetine HCl 120 mg PO DAILY 10/19/19 Oxybutynin Chloride [Oxybutynin 10 mg PO DAILY 12/24/19 Chloride ER] Acetaminophen [Tylenol Tablet] 650 mg PO Q6H PRN PRN tab 12/30/19 Fludrocortisone Acetate [Florinef] 0.1 mg PO DAILY@0800 tab 12/30/19 Tizanidine HCl [Zanaflex] 4 mg PO Q8H PRN PRN tab 12/30/19 Clonazepam [Klonopin] 0.5 mg PO TID PRN 05/02/20 Gabapentin [Neurontin] 800 mg PO TIDCM 05/02/20 Midodrine HCl 10 mg PO TID 05/09/20 Multivitamin with Folic Acid 400 mcg PO DAILY 05/09/20 [Thera Tablet] traZODone [Desyrel] 50 mg PO QHS PRN 05/09/20 Surgical History: - - Suprapubic catheter placement, debridements to abdominal wall and trochanteric areas secondary to pressure ulcers and nonhealing chronic wounds, prior history spinal abscess with intervention. 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 - *Family History Maternal History Items: - - Mother with history of multiple sclerosis. Paternal History Items: - - Patient denies knowing any of her paternal family history and states she has no relationship nor does she know her father. Review of Systems Comment: Documented in the electronic medical record and personally reviewed Patient Problems: Active and Suspected Problems Closed displaced transverse fracture of shaft of right femur (Acute) Fracture, ilium closed (Acute) Urinary catheter infection (Acute) UTI (urinary tract infection) (Acute) Objective: Patient is alert and oriented x3 no acute distress at rest breathing easily without respiratory distress. She is sitting upright in the hospital bed. Her right leg is propped with a pillow. There is gross deformity at the mid thigh on the right with marked edema. There is palpable effusion at the right knee. The right knee is without tenderness to palpation. Range of motion was deferred at the knee and the hip due to femoral shaft fracture. Patient is unable to flex or extend the toes plantar dorsiflex the ankles actively. She admits that this is her baseline and unchanged since the fracture. Pedal pulses present and equal bilaterally. Skin is pink and warm. Diagnostic studies laboratory results May 09 through May 10 were reviewed in cluding UA, CBC and CMP X-rays of pelvis and right femur May 09, 2020 were reviewed are consistent with comminuted fracture midshaft femur with shortening and posterior angulation - Physical Exam Vitals/I&O's: Vital Signs Temp Pulse Resp BP Pulse Ox 99.1 F 107 H 18 116/66 95 05/10/20 13:37 05/10/20 13:37 05/10/20 13:37 05/10/20 13:37 05/10/20 13:37 Oxygen Delivery Method Room Air Weight: 82.3 kg Body Mass Index (BMI) 23.9 Intake and Output for Last 24 Hours 05/08/20 05/09/20 05/10/20 23:59 23:59 23:59 Intake Total 33.33 / 233.33 1645.00 / 1645.00 Output Total 1200 / 1200 Balance 33.33 / 233.33 445.00 / 445.00 Microbiology Past 72 Hours 05/09/20 23:40 Wound - Abdominal Gram Stain - Final 05/09/20 23:40 Wound - Abdominal Wound Culture - Preliminary No growth-Final to follow Laboratory Results 05/09/20 18:35: WBC 11.5 H, RBC 4.09 L, Hgb 9.7 L, Hct 31.8 L, MCV 77.8 L, MCH 23.7 L, MCHC 30.5 L, RDW Std Deviation 49.3 H, RDW Coeff of Domonique 17.6 H, Plt Count 235, MPV 10.4, Immature Gran % (Auto) 0.300, Neut % (Auto) 65.2, Lymph % (Auto) 23.9, [place] % (Auto) 7.9, Eos % (Auto) 2.2, Baso % (Auto) 0.5, Absolute Neuts (auto) 7.5, Absolute Lymphs (auto) 2.75, Nucleated RBC % 0 05/09/20 18:35: Sodium 137, Potassium 3.7, Chloride 103, Carbon Dioxide 30.0, Anion Gap 4 L, BUN 10, Creatinine 0.43 L, Estim Creat Clear Calc 211.15, Est GFR (MDRD) Af Amer 212, Est GFR (MDRD) Non-Af 175, BUN/Creatinine Ratio 23.4 H, Glucose 120 H, Calcium 8.3 L 05/09/20 18:35: Magnesium 1.7 05/09/20 19:40: Urine Color Yellow, Urine Clarity Cloudy, Urine pH 6.0, Ur Specific [place] 1.025, Urine Protein 100 H, Urine Glucose (UA) Normal, Urine Ketones 5 H, Urine Occult Blood 25 H, Urine Nitrite Positive H, Urine Bilirubin 1 H, Urine Urobilinogen 1 H, Ur Leukocyte Esterase 500 H, Urine RBC 0 SEEN, Urine WBC 25-50 SEEN, Ur Squamous Epith Cells 0-5 SEEN, Urine Bacteria 1+, Urine Mucus 0 SEEN 05/09/20 22:23: Blood Type A POSITIVE, Antibody Screen NEGATIVE 05/09/20 22:23: Vit D 1,25-Dihydroxy Cancelled 05/09/20 22:23: Vitamin D 25-Hydroxy 24.4 05/09/20 22:23: Vitamin B12 422 05/09/20 23:25: COVID-19 ([facility]) Not Detected 05/09/20 23:40: S.aureus Protein A PCR POSITIVE H, MRSA (PCR) POSITIVE H 05/10/20 05:25: WBC 11.5 H, RBC 3.76 L, Hgb 8.7 L, Hct 29.7 L, MCV 79.0 L, MCH 23.1 L, MCHC 29.3 L, RDW Std Deviation 50.1 H, RDW Coeff of Domonique 17.8 H, Plt Count 236, MPV 10.9, Immature Gran % (Auto) 0.400, Neut % (Auto) 68.7, Lymph % (Auto) 20.0, [place] % (Auto) 8.1, Eos % (Auto) 2.4, Baso % (Auto) 0.4, Absolute Neuts (auto) 7.9 H, Absolute Lymphs (auto) 2.29, Nucleated RBC % 0 05/10/20 05:25: Sodium 134 L, Potassium 3.9, Chloride 101, Carbon Dioxide 32.0, Anion Gap 1 L, BUN 11, Creatinine 0.45 L, Estim Creat Clear Calc 201.76, Est GFR (MDRD) Af Amer 198, Est GFR (MDRD) Non-Af 164, BUN/Creatinine Ratio 24.3 H, Glucose 105, Calcium 8.0 L, Total Bilirubin 0.30, AST 23, ALT 34, Alkaline Phosphatase 103, Total Protein 6.2 L, Albumin 2.6 L, Globulin 3.6, Albumin/Globulin Ratio 0.7 L 05/10/20 05:25: PT 14.4, INR 1.2, APTT 29.5 05/10/20 05:25: Iron 10 L, TIBC 266, Iron Saturation 3.8 L, Ferritin 62, Folate 19.10 Current Medications Acetaminophen (Tylenol) 650 mg PO Q6H PRN PRN PRN Reason: Pain Score 1-10/Temp > 100.7 F Al Hydroxide/Mg Hydroxide (Mylanta Ii) 30 ml PO Q6H PRN PRN PRN Reason: Gastric Burning Albuterol Sulfate (Ventolin Aerosols) 2.5 mg INHALATION Q2H PRN PRN PRN Reason: Dyspnea, wheezing Baclofen (Lioresal) 30 mg PO 4X/DAY [facility] Last Admin: 05/10/20 14:51 Dose: Not Given Documented by: Calamine/Phenol (Calmoseptine Ointment) 1 applic TOPICAL 4X/DAY [facility]; Protocol Last Admin: 05/10/20 14:51 Dose: Not Given Documented by: Clonazepam (Klonopin) 0.5 mg PO TID PRN PRN PRN Reason: ANXIETY Last Admin: 05/10/20 08:45 Dose: 0.5 mg Documented by: Dextrose (D50w Syringe) 0 gm IV X1 PRN; Protocol PRN Reason: Hypoglycemia Duloxetine HCl (Cymbalta) 120 mg PO DAILY [facility] Last Admin: 05/10/20 08:12 Dose: 120 mg Documented by: Famotidine (Pepcid) 20 mg PO BID [facility] Last Admin: 05/10/20 08:12 Dose: 20 mg Documented by: Fludrocortisone Acetate (Florinef) 0.1 mg PO DAILY@0800 [facility] Last Admin: 05/10/20 08:13 Dose: 0.1 mg Documented by: Gabapentin (Neurontin) 800 mg PO TIDCM [facility] Last Admin: 05/10/20 13:03 Dose: Not Given Documented by: Glucagon () 1 mg IM .X1 PRN PRN Reason: Hypoglycemia Guaifenesin (Robitussin) 20 ml PO Q4H PRN PRN PRN Reason: COUGH Hydralazine HCl (Apresoline Iv) 10 mg IV Q4H PRN PRN PRN Reason: SBP > 160 Hydromorphone HCl (Dilaudid Inj) 0.5 mg IV Q2H PRN PRN PRN Reason: Pain Score 6-10/10 Last Admin: 05/10/20 10:53 Dose: 0.5 mg Documented by: Sodium Chloride () 1,000 mls @ 100 mls/hr IV .Q10H [facility] Last Infusion: 05/10/20 09:26 Dose: 100 mls/hr Documented by: Vancomycin IV Pharmacy to Dose (1 ea/ Sodium Chloride) 500 mls @ 250 mls/hr IV X1 PRN; Protocol PRN Reason: Rx to Dose Levofloxacin (Levaquin Iv) 750 mg in 150 mls @ 100 mls/hr IV Q24H [facility] Last Infusion: 05/10/20 00:10 Dose: Infused Documented by: Sodium Chloride () 250 mls @ 15 mls/hr IV .[id number] PRN PRN Reason: Saline Flush Vancomycin HCl (Vancomycin) 1,000 mg in 200 mls @ 200 mls/hr IV Q8H [facility] Last Infusion: 05/10/20 09:26 Dose: Infused Documented by: Magnesium Hydroxide (Milk Of Magnesia) 30 ml PO DAILY PRN PRN PRN Reason: Constipation Melatonin (Melatonin) 3 mg PO QHS PRN PRN PRN Reason: INSOMNIA Midodrine (Proamatine) 10 mg PO TID [facility] Last Admin: 05/10/20 14:51 Dose: Not Given Documented by: Nicotine (Nicoderm Cq (Pbkc)) 14 mg TRANSDERM. DAILY [facility] Last Admin: 05/10/20 08:13 Dose: 14 mg Documented by: Nystatin (Mycostatin) 1 applic TOPICAL BID [facility]; Protocol Last Admin: 05/10/20 11:17 Dose: 1 applicatio Documented by: Ondansetron HCl (Zofran) 4 mg IV Q8H PRN PRN PRN Reason: NAUSEA/VOMITING Oxycodone HCl (Oxyir) 10 mg PO Q4H PRN PRN PRN Reason: Pain Score 4-5/10 Last Admin: 05/10/20 08:26 Dose: 10 mg Documented by: Prochlorperazine Edisylate (Compazine Iv) 5 mg IV Q4H PRN PRN PRN Reason: Breakthrough nausea/vomiting Psyllium Hydrophilic Mucilloid (Metamucil) 1 packet PO DAILY PRN PRN PRN Reason: Constipation Senna/Docusate Sodium (Senokot-S, Prisca-Colace) 2 tablet PO BID PRN PRN PRN Reason: Constipation Sodium Chloride () 10 - 40 ml IV UD PRN PRN Reason: SALINE FLUSH Last Admin: 05/10/20 10:54 Dose: 10 ml Documented by: Throat Lozenges (Cepacol Sore Throat Lozenge) 1 lozenge MUCOUS MEM Q2H PRN PRN PRN Reason: SORE THROAT Tizanidine HCl (Zanaflex) 4 mg PO Q8H PRN PRN PRN Reason: SPASMS Last Admin: 05/09/20 22:58 Dose: 4 mg Documented by: Tolterodine Tartrate (Detrol La) 2 mg PO DAILY [facility] Last Admin: 05/10/20 08:12 Dose: 2 mg Documented by: Assessment/Plan All Active Problems Closed displaced transverse fracture of shaft of right femur (Acute) Fracture, ilium closed (Acute) Urinary catheter infection (Acute) UTI (urinary tract infection) (Acute) Pressure injury of trochanteric region of right hip, stage 3 (Acute) Skin ulcer of abdominal wall with fat layer exposed (Acute) Cellulitis (Acute) Sepsis (Acute) Blister of right heel with infection (Acute) Abdominal wall cellulitis (Acute) Impression is comminuted displaced right femoral shaft fracture in a patient with a history of multiple medical comorbidities including chronic nicotine dependence history of IV drug abuse HIV and hepatitis C Plan: Discussed and reviewed treatment options with the patient including surgical and nonsurgical at this time the patient does wish to proceed with closed reduction right femoral shaft fracture with retrograde intramedullary nailing. Potential risk benefits and complications of this procedure reviewed in detail including but not limited to infection nerve and blood vessel damage persistent pain numbness tingling paresthesias blood clot pulmonary ballismus requirement possible further surgery. Patient shows full understanding has no further questions for the doctor does agreed to proceed with the above-stated procedure and signed the appropriate surgery consent form. I discussed the importance of smoking cessation due to risk of nonunion and poor wound healing. The patient voiced understanding. Risk of exposure/jessi COVID-19 while in the hospital was discussed and reviewed with patient at length. We discussed and reviewed the strategies that could be used to help limit patient's exposure. She was informed that hospital has low infection right. She voiced understanding.
[2020-05-10] MEDS: Cefazolin 2 GM in 0.9% Normal Saline 100 ML IV (16:10)
--- NOTE | 2020-05-10 16:13 | RAD_ITS ---
STUDY: X-RAY - RIGHT FEMUR REASON FOR STUDY: Female, 39 years old. ORIF right femur fracture. TECHNIQUE: 11 intraoperative fluoroscopic view(s) of the femur. Fluoroscopy time 103 seconds. 11.81 mGy. COMPARISON: May 09, 2020. FINDINGS: ORIF comminuted fracture of the distal femoral diaphysis. Intramedullary leroy stabilized by transversely oriented proximal and distal screws. Femur in near normal anatomic alignment. RAD/Femur Min 2 Views IMPRESSION: ORIF fracture of the distal femoral diaphysis. Correlate with findings at fluoroscopy. Electronically Signed: Mook Block MD at 1:12 EDT , Service support ,
--- NOTE | 2020-05-10 17:59 | PCM.OPRPT ---
Report of Operation Date of Procedure: 05/10/20 Pre-Operative Diagnosis: Right short oblique femoral shaft fracture Post-Operative Diagnosis: Right short oblique femoral shaft fracture Surgery/Procedure Performed:: Intramedullary nail right femoral shaft Description of Surgical Findings:: Stable reduction. Patient had to have open reduction. legal billing specialist: Shaila Guevara Type of Anesthesia:: General Anesthesiologist: Kalia Gilman Special Medications: Patient is receiving vancomycin on the floor, take Levaquin daily. Ancef was given. Estimated Blood Loss (mL): 200 Fluids Replaced: 500 ml crystalloid Description of Procedure: On the day of the procedure patient was seen and evaluated in the preoperative area. After thorough discussion of risk and benefits as mentioned in the consultation we elected to proceed with intramedullary nail of the right femur. Patient's right lower extremity was marked and the patient was taken back to the operating room. In the operating room patient received anesthetic anesthesia assumed control C-spine airway. Patient was then transferred to the table in supine position. All bony prominences identified well-padded. Right hip was bumped. Right lower extremities elevated with blankets. Upon entering the room we verified patient's name identity and procedure to be performed. After patient was adequately positioned we used live x-ray to verify we could get an appropriate reduction. At this point significant shortening was noted. At this point we are confident we are going to have to do an open reduction. Right lower extremity was prepped in a sterile fashion while surgeon and stores assistant scrub. Upon reentering the room the right lower extremity was draped in a standard orthopedic fashion. Incision was marked out over the femur. Live x-rays verified tomorrow should center incision. We also marked out an incision over the knee. At this time lateral incision was made we carefully dissected down to the fracture by going through skin, subcutaneous tissue, fat then incised the fascia along with the incision. Vastus lateralis was then lifted anteriorly and the fracture could be identified. There was significant shortening. This time a clamp was placed on both. We did need to use paralysis from anesthesia. After paralysis were able to adequately reduce the fracture. Clamp was placed in the fracture live x-rays used to verify fracture reduction. Once this was done retractor was directed towards the knee. Medial parapatellar arthrotomy was made from the mid pole of the patella along the patella tendon. We dissected down to the joint. Live x-rays used to verify starting point. This was just above the PCL insertion. Starting pin was placed. Anterior was used to ream over the starting pin. Guidewire was placed. Using guidewire we advanced it up to the level of the lesser trochanter. Live x-ray was then used to verify length of the stuart. This was rate measured at 42 cm. We sequentially reamed the femoral canal to 11.5 mm with good chatter. We selected a 10 mm stuart. Stuart was opened and put on the guide. The nail was then placed in the femoral canal over the guidewire. Guidewire was removed once. Appropriate depth. Depth of the nail was verified by the hip and the knee using live x-ray. Once we have with the depth the nail the guidewire was removed. 2 screws were placed distally. Perfect united a[place] technique was used to place 1 locking screw proximally. Final x-rays were taken to verify per position of the screws, nail and fracture. Once were happy with these the guide was removed from the distal femur. All wounds were copiously irrigated out with normal saline. Wounds were closed in a layer whiting fashion. Fascia was closed with #1 Vicryl. Skin was closed 2-0 Vicryl and final closure was done with donna. Mepilex dressings were placed. Patient was awakened anesthesia transferred back to recovery. Postop plan this patient DVT prophylaxis can be per primary service in-house, recommend 2 baby aspirin for 4 weeks upon discharge.. Patient is weightbearing as tolerated. Range of motion as tolerated the hip and knee. Okay to use the leg for transfers. Grafts/Implants Used: [employer] 42 x 10 mm [employer] Gentile nail - Complications No intraoperative complications - Admit VTE Documentation VTE Present on Admission: No VTE Mechan Device Prophylaxis: SCD's, Thigh High CURRY Hose VTE Pharm Prophylaxis ordered?: Yes
--- NOTE | 2020-05-10 18:40 | RAD_ITS ---
STUDY: X-RAY - RIGHT FEMUR REASON FOR STUDY: Female, 39 years old. POST OP RT FEMUR FX TECHNIQUE: 4 view(s) of the femur. COMPARISON: May 09, 2020 FINDINGS: There is a new intramedullary leroy within the femur traversing a distal femur fracture. The alignment is grossly anatomic with mild ventral displacement of the distal femur. There is a screw within the proximal femur as well as 2 screws traversing the distal femur. There are postsurgical changes within the soft tissues. RAD/Femur Min 2 Views IMPRESSION: Status post placement of intramedullary leroy associated with a femoral fracture, grossly anatomic in alignment. Electronically Signed: Pat Hernandez MD at 23:49 EDT Tel , Service support ,
[2020-05-10] MEDS: 0.9% Normal Saline 1,000 ML 100 ML IV (20:15)
[2020-05-10] MEDS: Aspirin E.C. 81 MG Tablet PO (20:15)
[2020-05-10] MEDS: MELATONIN 3 MG TABLET PO (21:35)
[2020-05-10] MEDS: Acetaminophen 325 MG Tablet 650 MG PO (21:35)
--- NOTE | 2020-05-10 22:47 | NURSING ---
after multiple iv attempts the extension service supervisor was able to get the iv in. This nurse went to hang the atb and pt refused to allow this nurse to give it. I want pain meds. Instructed pt her bp is 90s and will be able to give oxyir at 0015 Pt refused and wanted to speak to charge nurse
[2020-05-10] MEDS: levoFLOXacin IV 750 MG/150 ML BAG 100 MG IV (22:54)
[2020-05-11] VITALS (7 sets, daily range): BP systolic 96–104; BP diastolic 49–66; PULSE 98–128; RESP 16–18; TEMP 36.8–39.3; O2SAT 94–99
[2020-05-11 00:30] LABS: Vancomycin, Trough Level 12.7 ug/mL (5.0-15.0)
[2020-05-11] MEDS: oxyCODONE 5 MG Tablet 10 MG PO ×4 (00:42→21:24)
--- NOTE | 2020-05-11 00:42 | NURSING ---
Pt asking for pain meds. nurse brought oxyir and pt wants dilaudid informed pt not time. Pt said next time she wants the dilaudid. in form pt if he bp is ok will give next time
[2020-05-11] MEDS: Vancomycin IV 1,000 MG/200 ML BAG 200 MG IV (00:43)
[2020-05-11] MEDS: HYDROmorphone 0.5 MG/0.5 ML SYRINGE IV (02:47)
[2020-05-11] MEDS: Midodrine HCl 5 MG Tablet 10 MG PO ×3 (05:01→21:24)
--- NOTE | 2020-05-11 05:39 | NURSING ---
Pt refused her blood work this am
--- NOTE | 2020-05-11 07:47 | PCM.PN.ORT ---
Patient Problems: Active and Suspected Problems Closed displaced transverse fracture of shaft of right femur (Acute) Fracture, ilium closed (Acute) Urinary catheter infection (Acute) UTI (urinary tract infection) (Acute) Subjective: Patient lying in bed awake. Alert and oriented. Patient states she still having a lot of pain in her operative leg. Denies chest pain, shortness of breath, nausea vomiting. Objective: Dressings are clean dry intact. Patient has strong posterior tibial and dorsalis pedis pulse of the operative leg. Patient is paralyzed no motion of lower extremities. Respiratory distress, speaking in full sentences. - Physical Exam Vitals/I&O's: Vital Signs Temp Pulse Resp BP Pulse Ox 98.3 F 98 18 99/55 L 97 05/11/20 04:00 05/11/20 04:00 05/11/20 04:00 05/11/20 04:00 05/11/20 07:04 Oxygen Flow Rate (L/min) 2 Oxygen Delivery Method Room Air Weight: 82.3 kg Body Mass Index (BMI) 23.9 Intake and Output for Last 24 Hours 05/09/20 05/10/20 05/11/20 23:59 23:59 23:59 Intake Total 33.33 / 233.33 2641.67 / 2641.67 830 / 830 Output Total 1500 / 1500 550 / 550 Balance 33.33 / 233.33 1141.67 / 1141.67 280 / 280 General: Alert, Oriented x3, Cooperative HEENT: PERRLA Oral: Moist Mucosa Neurological: Cranial nerves II-XII grossly intact Psych/Mental Status: Normal Affect Microbiology Past 72 Hours 05/09/20 23:40 Wound - Abdominal Gram Stain - Final 05/09/20 23:40 Wound - Abdominal Wound Culture - Preliminary No growth-Final to follow Laboratory Results 05/09/20 22:23: Vit D 1,25-Dihydroxy Cancelled 05/09/20 22:23: Vitamin D 25-Hydroxy 24.4 05/09/20 22:23: Vitamin B12 422 05/10/20 05:25: Iron 10 L, TIBC 266, Iron Saturation 3.8 L, Ferritin 62, Folate 19.10 05/11/20 00:03: Vancomycin Trough 12.7 Current Medications Acetaminophen (Tylenol) 650 mg PO Q6H PRN PRN PRN Reason: Pain Score 1-10/Temp > 100.7 F Last Admin: 05/10/20 21:35 Dose: 650 mg Documented by: Al Hydroxide/Mg Hydroxide (Mylanta Ii) 30 ml PO Q6H PRN PRN PRN Reason: Gastric Burning Albuterol Sulfate (Ventolin Aerosols) 2.5 mg INHALATION Q2H PRN PRN PRN Reason: Dyspnea, wheezing Aspirin (Ecotrin) 81 mg PO BIDCM [facility] Last Admin: 05/10/20 20:15 Dose: 81 mg Documented by: Baclofen (Lioresal) 30 mg PO 4X/DAY [facility] Last Admin: 05/10/20 21:25 Dose: 30 mg Documented by: Calamine/Phenol (Calmoseptine Ointment) 1 applic TOPICAL 4X/DAY [facility]; Protocol Last Admin: 05/10/20 21:25 Dose: 1 applicatio Documented by: Clonazepam (Klonopin) 0.5 mg PO TID PRN PRN PRN Reason: ANXIETY Last Admin: 05/10/20 21:35 Dose: 0.5 mg Documented by: Dextrose (D50w Syringe) 0 gm IV X1 PRN; Protocol PRN Reason: Hypoglycemia Duloxetine HCl (Cymbalta) 120 mg PO DAILY [facility] Last Admin: 05/10/20 08:12 Dose: 120 mg Documented by: Famotidine (Pepcid) 20 mg PO BID [facility] Last Admin: 05/10/20 21:25 Dose: 20 mg Documented by: Fludrocortisone Acetate (Florinef) 0.1 mg PO DAILY@0800 [facility] Last Admin: 05/10/20 08:13 Dose: 0.1 mg Documented by: Gabapentin (Neurontin) 800 mg PO TIDCM [facility] Last Admin: 05/10/20 17:34 Dose: Not Given Documented by: Glucagon () 1 mg IM .X1 PRN PRN Reason: Hypoglycemia Guaifenesin (Robitussin) 20 ml PO Q4H PRN PRN PRN Reason: COUGH Hydralazine HCl (Apresoline Iv) 10 mg IV Q4H PRN PRN PRN Reason: SBP > 160 Hydromorphone HCl (Dilaudid Inj) 0.5 mg IM Q2H PRN PRN PRN Reason: Pain Score 6-10/10 Sodium Chloride () 1,000 mls @ 100 mls/hr IV .Q10H [facility] Last Admin: 05/11/20 07:04 Dose: Not Given Documented by: Vancomycin IV Pharmacy to Dose (1 ea/ Sodium Chloride) 500 mls @ 250 mls/hr IV X1 PRN; Protocol PRN Reason: Rx to Dose Levofloxacin (Levaquin Iv) 750 mg in 150 mls @ 100 mls/hr IV Q24H [facility] Last Infusion: 05/11/20 00:34 Dose: Infused Documented by: Sodium Chloride () 250 mls @ 15 mls/hr IV .[id number] PRN PRN Reason: Saline Flush Vancomycin HCl 1,250 mg/ (Sodium Chloride) 275 mls @ 167 mls/hr IV Q8H [facility] Magnesium Hydroxide (Milk Of Magnesia) 30 ml PO DAILY PRN PRN PRN Reason: Constipation Melatonin (Melatonin) 3 mg PO QHS PRN PRN PRN Reason: INSOMNIA Last Admin: 05/10/20 21:35 Dose: 3 mg Documented by: Midodrine (Proamatine) 10 mg PO TID [facility] Last Admin: 05/11/20 05:01 Dose: 10 mg Documented by: Nicotine (Nicoderm Cq (Pbkc)) 14 mg TRANSDERM. DAILY [facility] Last Admin: 05/10/20 08:13 Dose: 14 mg Documented by: Nystatin (Mycostatin) 1 applic TOPICAL BID [facility]; Protocol Last Admin: 05/10/20 22:08 Dose: 1 applicatio Documented by: Ondansetron HCl (Zofran) 4 mg IV Q8H PRN PRN PRN Reason: NAUSEA/VOMITING Oxycodone HCl (Oxyir) 10 mg PO Q4H PRN PRN PRN Reason: Pain Score 4-5/10 Last Admin: 05/11/20 05:01 Dose: 10 mg Documented by: Prochlorperazine Edisylate (Compazine Iv) 5 mg IV Q4H PRN PRN PRN Reason: Breakthrough nausea/vomiting Psyllium Hydrophilic Mucilloid (Metamucil) 1 packet PO DAILY PRN PRN PRN Reason: Constipation Senna/Docusate Sodium (Senokot-S, Prisca-Colace) 2 tablet PO BID PRN PRN PRN Reason: Constipation Sodium Chloride () 10 - 40 ml IV UD PRN PRN Reason: SALINE FLUSH Last Admin: 05/10/20 10:54 Dose: 10 ml Documented by: Throat Lozenges (Cepacol Sore Throat Lozenge) 1 lozenge MUCOUS MEM Q2H PRN PRN PRN Reason: SORE THROAT Tizanidine HCl (Zanaflex) 4 mg PO Q8H PRN PRN PRN Reason: SPASMS Last Admin: 05/09/20 22:58 Dose: 4 mg Documented by: Tolterodine Tartrate (Detrol La) 2 mg PO DAILY [facility] Last Admin: 05/10/20 08:12 Dose: 2 mg Documented by: Medical Necessity - Tobacco Use Smoking Status: Current every day smoker Tobacco Use: Cigarettes Assessment/Plan All Active Problems Closed displaced transverse fracture of shaft of right femur (Acute) Fracture, ilium closed (Acute) Urinary catheter infection (Acute) UTI (urinary tract infection) (Acute) Pressure injury of trochanteric region of right hip, stage 3 (Acute) Skin ulcer of abdominal wall with fat layer exposed (Acute) Cellulitis (Acute) Sepsis (Acute) Blister of right heel with infection (Acute) Abdominal wall cellulitis (Acute) Open reduction with internal fixation of a right femur fracture Plan 1. Continue all pain medications as prescribed 2. No weightbearing restrictions 3. Aspirin 81 mg 1 p.o. every 12 hours x30 days for postop DVT prophylaxis 4. Encourage incentive spirometry 5. Staple removal 05/22/2020 6. Follow-up with Dr. Warner in 2 weeks, call for appointment [phone] 7. Continue physical therapy 8. Replace dressing at time of discharge, and place new Ag dressing 9. Discharge when clear by medicine
--- NOTE | 2020-05-11 07:55 | DCINST_ITS ---
Discharge Diet: No Restrictions Discharge Activity: May Not Drive, May Shower May shower in (days): 3 Ice area for (Minutes): 20 - Every hour while awake. Weight Bearing Status: Weight bearing as tolerated Keep extremity elevated above heart level: Operative Extremity Call your doctor if your incision/area has: Continuous Slow Oozing, Sudden Increased Bleeding, Increased Pain/ Swelling, Increased Redness, Foul Smelling Discharge Call your doctor if you observe: Fever of 101 or Higher, Coldness, Increased Pain, Numbness or Tingling, Change in Color, Calf discomfort Remove Dressing in (days):: 8 Allergies/Adverse Reactions: Allergies Penicillins Adverse Reaction (Verified 05/09/20 18:14) PT UNSURE OF REACTION Medications to take at Discharge Aspirin [Aspirin, Baby] 1 tab PO DAILY 10/19/19 Baclofen 30 mg PO 4X/DAY 10/19/19 Duloxetine HCl 120 mg PO DAILY 10/19/19 Oxybutynin Chloride [Oxybutynin Chloride ER] 10 mg PO DAILY 12/24/19 Acetaminophen [Tylenol Tablet] 650 mg PO Q6H PRN PRN tab 12/30/19 Fludrocortisone Acetate [Florinef] 0.1 mg PO DAILY@0800 tab 12/30/19 Tizanidine HCl [Zanaflex] 4 mg PO Q8H PRN PRN tab 12/30/19 Clonazepam [Klonopin] 0.5 mg PO TID PRN 05/02/20 Gabapentin [Neurontin] 800 mg PO TIDCM 05/02/20 Midodrine HCl 10 mg PO TID 05/09/20 Multivitamin with Folic Acid [Thera Tablet] 400 mcg PO DAILY 05/09/20 traZODone [Desyrel] 50 mg PO QHS PRN 05/09/20 Primary Care Physician: Qamar Zimmer MD [Primary Care Provider] - Test Results: Test results from this visit will be discussed in further detail at your follow- up appointment, if applicable. Please Follow Up With: Shubham Warner MD When: 2 weeks call for appt. [phone]
--- NOTE | 2020-05-11 08:31 | PN_ITS ---
Patient Problems: Active and Suspected Problems Closed displaced transverse fracture of shaft of right femur (Acute) Fracture, ilium closed (Acute) Urinary catheter infection (Acute) UTI (urinary tract infection) (Acute) Reason for Visit: Awoken earlier and having significant pain in her right leg. Vitals/I&O's: Vital Signs Temp Pulse Resp BP Pulse Ox 36.8 C 98 18 99/55 L 97 05/11/20 04:00 05/11/20 04:00 05/11/20 04:00 05/11/20 04:00 05/11/20 07:04 Oxygen Flow Rate (L/min) 2 Oxygen Delivery Method Room Air Weight: 82.3 kg Body Mass Index (BMI) 23.9 Intake and Output for Last 24 Hours 05/09/20 05/10/20 05/11/20 23:59 23:59 23:59 Intake Total 33.33 / 233.33 2641.67 / 2641.67 830 / 830 Output Total 1500 / 1500 550 / 550 Balance 33.33 / 233.33 1141.67 / 1141.67 280 / 280 General: Alert, - - uncomfortable. HEENT: Atraumatic, Normocephalic Oral: Moist Mucosa, No Gingival or Mucosal Lesions/ Ulcerations Neck: No Nodes, Thyroid Normal Size and Texture Lungs: Clear to auscultation, Normal air movement, No rhonchi, No wheeze, No rales Cardiovascular: Regular rate, Regular Rhythm, Normal S1, Normal S2, No murmurs Abdomen: Bowel Sounds Present, Soft, Non Tender, Non-Distended, No Hepato- splenomegaly Extremities: - - right leg incision covered with a bandage--did not remove. Psych/Mental Status: Agitated, Anxious Microbiology Past 72 Hours 05/09/20 23:40 Wound - Abdominal Gram Stain - Final 05/09/20 23:40 Wound - Abdominal Wound Culture - Preliminary No growth-Final to follow Laboratory Results 05/09/20 22:23: Vit D 1,25-Dihydroxy Cancelled 05/09/20 22:23: Vitamin D 25-Hydroxy 24.4 05/09/20 22:23: Vitamin B12 422 05/10/20 05:25: Iron 10 L, TIBC 266, Iron Saturation 3.8 L, Ferritin 62, Folate 19.10 05/11/20 00:03: Vancomycin Trough 12.7 Current Medications Acetaminophen (Tylenol) 650 mg PO Q6H PRN PRN PRN Reason: Pain Score 1-10/Temp > 100.7 F Last Admin: 05/10/20 21:35 Dose: 650 mg Documented by: Al Hydroxide/Mg Hydroxide (Mylanta Ii) 30 ml PO Q6H PRN PRN PRN Reason: Gastric Burning Albuterol Sulfate (Ventolin Aerosols) 2.5 mg INHALATION Q2H PRN PRN PRN Reason: Dyspnea, wheezing [facility] Last Admin: 05/10/20 20:15 Dose: 81 mg Documented by: Baclofen (Lioresal) 30 mg PO 4X/DAY [facility] Last Admin: 05/10/20 21:25 Dose: 30 mg Documented by: Calamine/Phenol (Calmoseptine Ointment) 1 applic TOPICAL 4X/DAY [facility]; Protocol Last Admin: 05/10/20 21:25 Dose: 1 applicatio Documented by: Clonazepam (Klonopin) 0.5 mg PO TID PRN PRN PRN Reason: ANXIETY Last Admin: 05/10/20 21:35 Dose: 0.5 mg Documented by: Dextrose (D50w Syringe) 0 gm IV X1 PRN; Protocol PRN Reason: Hypoglycemia Duloxetine HCl (Cymbalta) 120 mg PO DAILY [facility] Last Admin: 05/10/20 08:12 Dose: 120 mg Documented by: Famotidine (Pepcid) 20 mg PO BID [facility] Last Admin: 05/10/20 21:25 Dose: 20 mg Documented by: Fludrocortisone Acetate (Florinef) 0.1 mg PO DAILY@0800 [facility] Last Admin: 05/10/20 08:13 Dose: 0.1 mg Documented by: Gabapentin (Neurontin) 800 mg PO TIDCM [facility] Last Admin: 05/10/20 17:34 Dose: Not Given Documented by: Glucagon () 1 mg IM .X1 PRN PRN Reason: Hypoglycemia Guaifenesin (Robitussin) 20 ml PO Q4H PRN PRN PRN Reason: COUGH Hydralazine HCl (Apresoline Iv) 10 mg IV Q4H PRN PRN PRN Reason: SBP > 160 Hydromorphone HCl (Dilaudid Inj) 0.5 mg IM Q2H PRN PRN PRN Reason: Pain Score 6-10/10 Sodium Chloride () 250 mls @ 15 mls/hr IV .[id number] PRN PRN Reason: Saline Flush Magnesium Hydroxide (Milk Of Magnesia) 30 ml PO DAILY PRN PRN PRN Reason: Constipation Melatonin (Melatonin) 3 mg PO QHS PRN PRN PRN Reason: INSOMNIA Last Admin: 05/10/20 21:35 Dose: 3 mg Documented by: Midodrine (Proamatine) 10 mg PO TID [facility] Last Admin: 05/11/20 05:01 Dose: 10 mg Documented by: Nicotine (Nicoderm Cq (Pbkc)) 14 mg TRANSDERM. DAILY [facility] Last Admin: 05/10/20 08:13 Dose: 14 mg Documented by: Nystatin (Mycostatin) 1 applic TOPICAL BID [facility]; Protocol Last Admin: 05/10/20 22:08 Dose: 1 applicatio Documented by: Ondansetron HCl (Zofran) 4 mg IV Q8H PRN PRN PRN Reason: NAUSEA/VOMITING Oxycodone HCl (Oxyir) 10 mg PO Q4H PRN PRN PRN Reason: Pain Score 4-5/10 Last Admin: 05/11/20 05:01 Dose: 10 mg Documented by: Prochlorperazine Edisylate (Compazine Iv) 5 mg IV Q4H PRN PRN PRN Reason: Breakthrough nausea/vomiting Psyllium Hydrophilic Mucilloid (Metamucil) 1 packet PO DAILY PRN PRN PRN Reason: Constipation Senna/Docusate Sodium (Senokot-S, Prisca-Colace) 2 tablet PO BID PRN PRN PRN Reason: Constipation Sodium Chloride () 10 - 40 ml IV UD PRN PRN Reason: SALINE FLUSH Last Admin: 05/10/20 10:54 Dose: 10 ml Documented by: Throat Lozenges (Cepacol Sore Throat Lozenge) 1 lozenge MUCOUS MEM Q2H PRN PRN PRN Reason: SORE THROAT Tizanidine HCl (Zanaflex) 4 mg PO Q8H PRN PRN PRN Reason: SPASMS Last Admin: 05/09/20 22:58 Dose: 4 mg Documented by: Tolterodine Tartrate (Detrol La) 2 mg PO DAILY [facility] Last Admin: 05/10/20 08:12 Dose: 2 mg Documented by: STROKE Vital Signs/Narrative: Vital Signs Pulse Ox 05/11/20 07:04 97 Medical Necessity - Tobacco Use Smoking Status: Current every day smoker Tobacco Use: Cigarettes Assessment/Plan All Active Problems Closed displaced transverse fracture of shaft of right femur (Acute) Fracture, ilium closed (Acute) Urinary catheter infection (Acute) UTI (urinary tract infection) (Acute) Pressure injury of trochanteric region of right hip, stage 3 (Acute) Skin ulcer of abdominal wall with fat layer exposed (Acute) Cellulitis (Acute) Sepsis (Acute) Blister of right heel with infection (Acute) Abdominal wall cellulitis (Acute) 1. Right femur fracture: * Essentially a low impact injury. Contributed by osteopenia or osteoporosis. 25-hydroxy vitamin D level is 24.4. Will initiate 50,000 units of ergocalciferol for a total of 8 weeks and then afterwards, start 2000 units of cholecalciferol. Goal level is 50. Advised checking after patient has completed the 2 months of ergocalciferol. * Patient is paraplegic but still having significant pain. Will optimize her pain control with hydromorphone 0.5 mg every 2 hours as needed. Anticipate that her pain will be improved though not relieved by surgery. * 05/10: s/p IM nail. * Per ortho: WBAT. follow up in office in 2 weeks 2. Possible urinary tract infection: * Patient had positive nitrates 500 leuk esterase 25-50 white blood cells and 1+ bacteria. Follow-up urine culture. * Previous culture back in March 18 was Pseudomonas [place] which was sensitive to Cipro, gentamicin, imipenem, levofloxacin and tobramycin. It was intermediate to Pipracil/tazobactam. I am unclear if this is actual true infection versus colonization. Will hold off on any additional antibiotics at this time and observe. 3. Suprapubic catheter site irritation: * Unclear if this is actual bacterial infection. Favoring given the matted appearance that this is more consistent with Amira intertrigo. Will add nystatin topical. * 05/11 DC vancomycin 4. Microcytic anemia: * Hemoglobin has dropped down from 13.1 earlier this month on the 12th to now 8.7. Will check iron studies plus B12 and folate levels. No indication to transfuse at this time. * patient declined blood draws on 05/11 5. Chronic conditions: Paraplegia, chronic hypertension, anxiety, depression, hepatitis C. Overall stable but complicates the overall picture. 6. VTE prophylaxis: Currently with SCDs. Add enoxaparin Inpatient E&M: 67108 Subs Hosp L2
[2020-05-11] MEDS: HYDROmorphone 0.5 MG/0.5 ML SYRINGE IM ×4 (09:14→19:50)
[2020-05-11] MEDS: Tolterodine Tartrate 2 MG CAP.SA PO (09:17)
[2020-05-11] MEDS: Gabapentin 800 MG Tablet PO ×3 (09:17→16:31)
[2020-05-11] MEDS: Famotidine 20 MG Tablet PO ×2 (09:17→21:24)
[2020-05-11] MEDS: Fludrocortisone Acetate 0.1 MG Tablet PO (09:17)
[2020-05-11] MEDS: Aspirin E.C. 81 MG Tablet PO ×2 (09:17→16:31)
[2020-05-11] MEDS: Baclofen 10 MG Tablet 30 MG PO ×4 (09:17→21:24)
[2020-05-11] MEDS: DULoxetine Hcl 60 MG Capsule 120 MG PO (09:17)
[2020-05-11] MEDS: Enoxaparin 40 MG/0.4 ML Syringe SC (09:18)
[2020-05-11] MEDS: Nystatin Ointment 1 APPLIC TOPICAL ×2 (09:19→21:24)
--- NOTE | 2020-05-11 11:52 | CASEMGMT ---
Addendum entered by Reji Maddox 05/11/20 12:04: Call received from Claudine Strong nurse CM, to inquire about discharge plans. She states pt has had [facility] in the past but they have closed her case and she is no longer active with them. Ligia states has some concerns re: pt and managing her own Suprapubic catheter @ home on her own, as she has UTI at this time and inquiring if pt may need HHC again @ discharge. This RN CM informed her that had voiced she prefers to return home, but PT/OT evals are still pending and discharge plan is undetermined at this time. Claudine Strong CM: PH: [phone]. Original Note: RN BELA ASSESSMENT Per , pt stated 05/10 that she wishes to return home. RN CM to room to talk with pt and discuss discharge planning. ANTONIETTA CRAMER introduced self and role at [facility]. Pt voices understanding and consents to assessment at this time. Pt resting in bed but is very painful and requesting pain medication. Lily MANE, made aware. Pt was agreeable to answering a few assessment questions, but when ANTONIETTA CRAMER inquired about her living situation and family, pt began giving very short answers and would not provide further information. Preferred Pharmacy: [facility] [place] Insurance: [facility] Prescription Benefit: Yes Living Will/HPOA: Pt does not currently have LW/HCPOA and declines info at this time. LNOK: Mother, and sister, Liseth, listed on demographics sheet. Pt states she has children but would not provide further information about them. Living Arrangements: Pt states lives with a friend. ANTONIETTA CRAMER inquired if anyone lives in the home, she stated, I don't know HHC/SNF: Hx [facility] and [facility]. PT/OT evals are pending. Pt states once evals are completed, if SNF is recommended, that she would be agreeable to returning to [facility]. Lakesha VALERIO, made aware. PLAN: TBD. PT/OT evals pending. Yumiko NGUYEN RN, CM
--- NOTE | 2020-05-11 14:43 | CASEMGMT ---
Social Work Note SW back in to speak with pt regarding discharge plans. Pt confirms she worked with PT/OT today, SW asked pt if she thinks she needs to go to SNF or is able to return home at discharge and pt states I am not sure. SW asked pt if this worker could at least get an initial referral sent to SNF and then the referral could be cancelled at anytime. Pt agreeable to referral being sent to [facility]. SW faxed referral to [facility]. SW placed a call to Belem at [facility] and provided referral. Plan: TBD. Pt still not sure what she wants to do at discharge. Initial referral sent to [facility]. Lakesha Grullon MOLD WORKER, ELEMENTARY SPANISH TEACHER
[2020-05-11] MEDS: Menthol/Lanolin/Calamine/Znox 113 GM Tube 1 APPLIC TOPICAL ×2 (16:35→21:25)
[2020-05-11] MEDS: Acetaminophen 325 MG Tablet 650 MG PO (19:50)
[2020-05-12] MEDS: HYDROmorphone 0.5 MG/0.5 ML SYRINGE IM ×3 (02:07→08:28)
[2020-05-12 02:12] VITALS: BP 105/57; PULSE 107; RESP 16; TEMP 37.7; O2SAT 95
[2020-05-12] MEDS: oxyCODONE 5 MG Tablet 10 MG PO ×4 (03:35→23:16)
[2020-05-12] MEDS: Midodrine HCl 5 MG Tablet 10 MG PO ×3 (05:31→21:10)
[2020-05-12] MEDS: Enoxaparin 40 MG/0.4 ML Syringe SC (05:31)
[2020-05-12 08:10] VITALS: BP 106/55; PULSE 107; RESP 16; TEMP 37.3; O2SAT 98
[2020-05-12] MEDS: Fludrocortisone Acetate 0.1 MG Tablet PO (08:28)
[2020-05-12] MEDS: clonazePAM 0.5 MG Tablet PO (08:28)
[2020-05-12] MEDS: Gabapentin 800 MG Tablet PO ×3 (08:28→17:27)
[2020-05-12] MEDS: Aspirin E.C. 81 MG Tablet PO ×2 (08:28→17:27)
[2020-05-12] MEDS: Nystatin Ointment 1 APPLIC TOPICAL ×2 (10:55→21:10)
[2020-05-12] MEDS: Tolterodine Tartrate 2 MG CAP.SA PO (10:55)
[2020-05-12] MEDS: Baclofen 10 MG Tablet 30 MG PO ×4 (10:55→21:10)
[2020-05-12] MEDS: DULoxetine Hcl 60 MG Capsule 120 MG PO (10:55)
--- NOTE | 2020-05-12 11:33 | CASEMGMT ---
Addendum entered by Lakesha Grullon 05/12/20 14:35: SW updated that pt would like to talk to this worker. SW in to speak with pt. Pt states I am not going to the shelter, I am going home. Pt agreeable to [facility] and prefers to use [facility] as she has used them in the past. Pt states that her friend that she lives with her doesn't get home until 4:00pm so she wouldn't be able to be discharged until after then. Pt states that she will also need transport arranged via wheelchair van as her wheelchair is home. SW explained that physician will be updated that she wishes to discharge home with [facility] and then once discharged is in, staff will look into transport home. Pt states understanding. RN CM updated on [facility]. Original Note: Social Work Note SW placed a call to Belem at [facility]. Belem states she is able to accept pt and will submit for pre-cert. SW in to speak with pt. Pt states she is leaning towards going to [facility] to continue to get her pain controlled. SW updated pt that [facility] is able to accept pt and this worker will be back in once pre-cert is obtained. Pt states understanding. Plan: [facility] pending pre-cert Lakesha Gruloln CUSTOMER SUPPORT ASSOCIATE, CRAFT CENTER DIRECTOR
--- NOTE | 2020-05-12 11:34 | PN_ITS ---
Patient Problems: Active and Suspected Problems Closed displaced transverse fracture of shaft of right femur (Acute) Fracture, ilium closed (Acute) Urinary catheter infection (Acute) UTI (urinary tract infection) (Acute) Reason for Visit: femur fracture Subjective: Still with significant pain in right lower extremity. Vitals/I&O's: Vital Signs Temp Pulse Resp BP Pulse Ox 37.3 C 107 H 16 106/55 L 98 05/12/20 08:10 05/12/20 08:10 05/12/20 08:10 05/12/20 08:10 05/12/20 08:10 Oxygen Flow Rate (L/min) 2 Oxygen Delivery Method Room Air Weight: 82.3 kg Body Mass Index (BMI) 23.9 Intake and Output for Last 24 Hours 05/10/20 05/11/20 05/12/20 23:59 23:59 23:59 Intake Total 2641.67 / 2641.67 1979 / 1979 Output Total 1500 / 1500 2450 / 2450 200 / 200 Balance 1141.67 / 1141.67 -470 / -470 -200 / -200 General: Alert, No apparent distress HEENT: Atraumatic, Normocephalic Oral: Moist Mucosa, No Gingival or Mucosal Lesions/ Ulcerations Neck: No Nodes, Thyroid Normal Size and Texture Lungs: Clear to auscultation, Normal air movement, No rhonchi, No wheeze, No rales Cardiovascular: Regular rate, Regular Rhythm, Normal S1, Normal S2, No murmurs Abdomen: Bowel Sounds Present, Soft, Non Tender, Non-Distended, No Hepato- splenomegaly Extremities: No Calf Tenderness, Edema Skin: No rashes, No breakdown, - - ecchymosis in right groin and right posterior leg. Microbiology Past 72 Hours 05/09/20 23:40 Wound - Abdominal Gram Stain - Final 05/09/20 23:40 Wound - Abdominal Wound Culture - Preliminary Coag Negative Staph Staphylococcus aureus Gram positive leroy 05/09/20 19:40 Suprapubic Tap Urine Culture - Final Enterobacter cloacae complex Current Medications Acetaminophen (Tylenol) 650 mg PO Q6H PRN PRN PRN Reason: Pain Score 1-10/Temp > 100.7 F Last Admin: 05/11/20 19:50 Dose: 650 mg Documented by: Al Hydroxide/Mg Hydroxide (Mylanta Ii) 30 ml PO Q6H PRN PRN PRN Reason: Gastric Burning Albuterol Sulfate (Ventolin Aerosols) 2.5 mg INHALATION Q2H PRN PRN PRN Reason: Dyspnea, wheezing Aspirin (Ecotrin) 81 mg PO BIDCM [facility] Last Admin: 05/12/20 08:28 Dose: 81 mg Documented by: Baclofen (Lioresal) 30 mg PO 4X/DAY [facility] Last Admin: 05/12/20 10:55 Dose: 30 mg Documented by: Calamine/Phenol (Calmoseptine Ointment) 1 applic TOPICAL 4X/DAY [facility]; Protocol Last Admin: 05/11/20 21:25 Dose: 1 applicatio Documented by: Clonazepam (Klonopin) 0.5 mg PO TID PRN PRN PRN Reason: ANXIETY Last Admin: 05/12/20 08:28 Dose: 0.5 mg Documented by: Dextrose (D50w Syringe) 0 gm IV X1 PRN; Protocol PRN Reason: Hypoglycemia Duloxetine HCl (Cymbalta) 120 mg PO DAILY [facility] Last Admin: 05/12/20 10:55 Dose: 120 mg Documented by: Enoxaparin Sodium (Lovenox) 40 mg SC DAILY@0600 [facility] Last Admin: 05/12/20 05:31 Dose: 40 mg Documented by: Famotidine (Pepcid) 20 mg PO BID [facility] Last Admin: 05/11/20 21:24 Dose: 20 mg Documented by: Fludrocortisone Acetate (Florinef) 0.1 mg PO DAILY@0800 [facility] Last Admin: 05/12/20 08:28 Dose: 0.1 mg Documented by: Gabapentin (Neurontin) 800 mg PO TIDCM [facility] Last Admin: 05/12/20 08:28 Dose: 800 mg Documented by: Glucagon () 1 mg IM .X1 PRN PRN Reason: Hypoglycemia Guaifenesin (Robitussin) 20 ml PO Q4H PRN PRN PRN Reason: COUGH Hydralazine HCl (Apresoline Iv) 10 mg IV Q4H PRN PRN PRN Reason: SBP > 160 Hydromorphone HCl (Dilaudid Inj) 0.5 mg IM Q2H PRN PRN PRN Reason: Pain Score 6-10/10 Last Admin: 05/12/20 08:28 Dose: 0.5 mg Documented by: Sodium Chloride () 250 mls @ 15 mls/hr IV .[id number] PRN PRN Reason: Saline Flush Magnesium Hydroxide (Milk Of Magnesia) 30 ml PO DAILY PRN PRN PRN Reason: Constipation Melatonin (Melatonin) 3 mg PO QHS PRN PRN PRN Reason: INSOMNIA Last Admin: 05/10/20 21:35 Dose: 3 mg Documented by: Midodrine (Proamatine) 10 mg PO TID [facility] Last Admin: 05/12/20 05:31 Dose: 10 mg Documented by: Nicotine (Nicoderm Cq (Pbkc)) 14 mg TRANSDERM. DAILY [facility] Last Admin: 05/12/20 10:55 Dose: 14 mg Documented by: Nystatin (Mycostatin) 1 applic TOPICAL BID [facility]; Protocol Last Admin: 05/12/20 10:55 Dose: 1 applicatio Documented by: Ondansetron HCl (Zofran) 4 mg IV Q8H PRN PRN PRN Reason: NAUSEA/VOMITING Oxycodone HCl (Oxyir) 10 mg PO Q4H PRN PRN PRN Reason: Pain Score 4-5/10 Last Admin: 05/12/20 10:58 Dose: 10 mg Documented by: Prochlorperazine Edisylate (Compazine Iv) 5 mg IV Q4H PRN PRN PRN Reason: Breakthrough nausea/vomiting Psyllium Hydrophilic Mucilloid (Metamucil) 1 packet PO DAILY PRN PRN PRN Reason: Constipation Senna/Docusate Sodium (Senokot-S, Prisca-Colace) 2 tablet PO BID PRN PRN PRN Reason: Constipation Sodium Chloride () 10 - 40 ml IV UD PRN PRN Reason: SALINE FLUSH Last Admin: 05/10/20 10:54 Dose: 10 ml Documented by: Throat Lozenges (Cepacol Sore Throat Lozenge) 1 lozenge MUCOUS MEM Q2H PRN PRN PRN Reason: SORE THROAT Tizanidine HCl (Zanaflex) 4 mg PO Q8H PRN PRN PRN Reason: SPASMS Last Admin: 05/09/20 22:58 Dose: 4 mg Documented by: Tolterodine Tartrate (Detrol La) 2 mg PO DAILY [facility] Last Admin: 05/12/20 10:55 Dose: 2 mg Documented by: STROKE Vital Signs/Narrative: Vital Signs Temp Pulse Resp BP Pulse Ox 05/12/20 08:10 37.3 C 107 H 16 106/55 L 98 Medical Necessity - Tobacco Use Smoking Status: Current every day smoker Tobacco Use: Cigarettes Assessment/Plan All Active Problems Closed displaced transverse fracture of shaft of right femur (Acute) Fracture, ilium closed (Acute) Urinary catheter infection (Acute) UTI (urinary tract infection) (Acute) Pressure injury of trochanteric region of right hip, stage 3 (Acute) Skin ulcer of abdominal wall with fat layer exposed (Acute) Cellulitis (Acute) Sepsis (Acute) Blister of right heel with infection (Acute) Abdominal wall cellulitis (Acute) 1. Right femur fracture: * Essentially a low impact injury. Contributed by osteopenia or osteoporosis. 25-hydroxy vitamin D level is 24.4. Will initiate 50,000 units of ergocalciferol for a total of 8 weeks and then afterwards, start 2000 units of cholecalciferol. Goal level is 50. Advised checking after patient has completed the 2 months of ergocalciferol. * Patient is paraplegic but still having significant pain. Will optimize her pain control with hydromorphone 0.5 mg every 2 hours as needed. Anticipate that her pain will be improved though not relieved by surgery. * 05/10: s/p IM nail. * Per ortho: WBAT. follow up in office in 2 weeks 2. Possible urinary tract infection: * Patient had positive nitrates 500 leuk esterase 25-50 white blood cells and 1+ bacteria. Follow-up urine culture. * Previous culture back in March 18 was Pseudomonas Put[place] which was sensitive to Cipro, gentamicin, imipenem, levofloxacin and tobramycin. It was intermediate to Pipracil/tazobactam. I am unclear if this is actual true infection versus colonization. Will hold off on any additional antibiotics at this time and observe. 3. Suprapubic catheter site irritation: * Unclear if this is actual bacterial infection. Favoring given the matted appearance that this is more consistent with Amira intertrigo. Will add nystatin topical. * 05/11 DC vancomycin 4. Microcytic anemia: * Hemoglobin has dropped down from 13.1 earlier this month on the 12th to now 8.7. Will check iron studies plus B12 and folate levels. No indication to transfuse at this time. * patient declined blood draws on 05/11 5. Chronic conditions: Paraplegia, chronic hypertension, anxiety, depression, hepatitis C. Overall stable but complicates the overall picture. 6. VTE prophylaxis: Currently with SCDs. Add enoxaparin 7. Disposition: pt unsure about SNF v home at this time. Inpatient E&M: 41922 Subs Hosp L2
[2020-05-12] MEDS: Famotidine 20 MG Tablet PO ×2 (12:37→21:09)
[2020-05-12] MEDS: Menthol/Lanolin/Calamine/Znox 113 GM Tube 1 APPLIC TOPICAL ×4 (12:37→21:12)
[2020-05-12 14:37] VITALS: BP 98/52; PULSE 118; RESP 16; TEMP 37.3; O2SAT 98
[2020-05-12] MEDS: Acetaminophen 500 MG Tablet 1000 MG PO ×2 (14:39→21:09)
--- NOTE | 2020-05-12 15:24 | CASEMGMT ---
Addendum entered by Lakesha Granados 05/12/20 15:48: [facility] returned call and they are not able to accept patient due to staffing. ANTONIETTA CRAMER provided patient with list of in-network [facility] agencies to review. CM to follow-up with patient in morning with choice of HHC. Original Note: ANTONIETTA CRAMER updated by SW that patient would like to discharge home with HHC with [facility] as she has had them in the past. ANTONIETTA CRAMER sent referral to [facility] and awaiting acceptance.
[2020-05-12 18:23] LABS: Vancomycin, Trough Level 0.8 ug/mL (5.0-15.0)
[2020-05-12 21:00] VITALS: BP 90/48; PULSE 91; RESP 16; TEMP 36.7; O2SAT 94
[2020-05-12 23:12] VITALS: BP 95/50; PULSE 89; RESP 16; TEMP 36.7; O2SAT 99
[2020-05-13 04:37] VITALS: BP 95/50; PULSE 93; RESP 18; TEMP 36.7; O2SAT 97
[2020-05-13] MEDS: oxyCODONE 5 MG Tablet 10 MG PO ×2 (04:45→10:19)
[2020-05-13] MEDS: Midodrine HCl 5 MG Tablet 10 MG PO ×2 (04:56→14:45)
[2020-05-13] MEDS: Acetaminophen 500 MG Tablet 1000 MG PO ×2 (04:56→14:44)
[2020-05-13] MEDS: Enoxaparin 40 MG/0.4 ML Syringe SC (04:57)
[2020-05-13] MEDS: Fludrocortisone Acetate 0.1 MG Tablet PO (10:19)
[2020-05-13] MEDS: Famotidine 20 MG Tablet PO (10:19)
[2020-05-13] MEDS: Baclofen 10 MG Tablet 30 MG PO ×2 (10:20→14:44)
[2020-05-13] MEDS: DULoxetine Hcl 60 MG Capsule 120 MG PO (10:20)
[2020-05-13] MEDS: Aspirin E.C. 81 MG Tablet PO (10:21)
[2020-05-13] MEDS: Tolterodine Tartrate 2 MG CAP.SA PO (10:21)
[2020-05-13] MEDS: Menthol/Lanolin/Calamine/Znox 113 GM Tube 1 APPLIC TOPICAL ×2 (10:22→14:44)
[2020-05-13] MEDS: Gabapentin 800 MG Tablet PO ×2 (10:22→12:42)
[2020-05-13] MEDS: Nystatin Ointment 1 APPLIC TOPICAL (10:23)
[2020-05-13 10:27] VITALS: BP 96/47; PULSE 71; RESP 18; TEMP 36.8; O2SAT 98
--- NOTE | 2020-05-13 10:30 | PCM.DC ---
- Discharge Diagnoses Current Active Problems: Current Active and Chronic Problems Closed displaced transverse fracture of shaft of right femur (Acute) Fracture, ilium closed (Acute) Urinary catheter infection (Acute) UTI (urinary tract infection) (Acute) Tobacco use (Chronic) Chronic hypotension (Chronic) Anxiety and depression (Chronic) Paraplegia (Chronic) You will use the following diet at home:: No restrictions Your food should be the consistency of: Regular Your liquids should be the consistency of: Regular/Thin Discharge Activity: May Not Drive, May Shower May shower in (days): 3 Ice area for (Minutes): 20 - Every hour while awake. Weight Bearing Status: Weight bearing as tolerated Keep extremity elevated above heart level: Operative Extremity Call your doctor if your incision/area has: Continuous Slow Oozing, Sudden Increased Bleeding, Increased Pain/ Swelling, Increased Redness, Foul Smelling Discharge Call your doctor if you observe: Fever of 101 or Higher, Coldness, Increased Pain, Numbness or Tingling, Change in Color, Calf discomfort Remove Dressing in (days):: 8 Allergies/Adverse Reactions: Allergies Penicillins Adverse Reaction (Verified 05/09/20 18:14) PT UNSURE OF REACTION Medications to take at Discharge Baclofen 30 mg PO 4X/DAY 10/19/19 Duloxetine HCl 120 mg PO DAILY 10/19/19 Oxybutynin Chloride [Oxybutynin Chloride ER] 10 mg PO DAILY 12/24/19 Fludrocortisone Acetate [Florinef] 0.1 mg PO DAILY@0800 tab 12/30/19 Tizanidine HCl [Zanaflex] 4 mg PO Q8H PRN PRN tab 12/30/19 Clonazepam [Klonopin] 0.5 mg PO TID PRN 05/02/20 Gabapentin [Neurontin] 800 mg PO TIDCM 05/02/20 Midodrine HCl 10 mg PO TID 05/09/20 Multivitamin with Folic Acid [Thera Tablet] 400 mcg PO DAILY 05/09/20 traZODone [Desyrel] 50 mg PO QHS PRN 05/09/20 Acetaminophen [Tylenol] 1,000 mg PO Q8 tab 05/13/20 Aspirin E.C. [Ecotrin] 81 mg PO BIDCM tab 05/13/20 Ergocalciferol [Vitamin D] 50,000 unit PO Q7D #8 cap 05/13/20 Nystatin [Mycostatin] 1 applic TOPICAL BID #1 tube 05/13/20 Oxycodone [Oxyir] 10 mg PO Q6H PRN 4 Days #16 tablet 05/13/20 The following prescriptions were given: Nystatin [Mycostatin] 1 applic TOPICAL BID #1 tube Transmission Status: Pending to [facility] Oxycodone [Oxyir] 10 mg PO Q6H PRN 4 Days #16 tablet PRN Reason: Pain Score 6-10/10 Transmission Status: Sent to [facility] Ergocalciferol [Vitamin D] 50,000 unit PO Q7D #8 cap Transmission Status: Pending to [facility] Primary Care Physician: Qamar Zimmer MD [Primary Care Provider] - Within 2 Weeks Test Results: Test results from this visit will be discussed in further detail at your follow-up appointment, if applicable. Please Follow Up With: Shubham Warner MD When: 2 weeks call for appt. [phone] Proposed Discharge Date: 05/13/20
--- NOTE | 2020-05-13 10:33 | PCM.DC.SUM ---
Discharge Date and Diagnosis - Problem List Patient Problems: Active and Suspected Problems Closed displaced transverse fracture of shaft of right femur (Acute) Fracture, ilium closed (Acute) Urinary catheter infection (Acute) UTI (urinary tract infection) (Acute) Date of Admission: 05/09/20 Date of Discharge: 05/13/20 - Primary Discharge Diagnosis Acute Problems: Active Problems Closed displaced transverse fracture of shaft of right femur (Acute) Fracture, ilium closed (Acute) Urinary catheter infection (Acute) UTI (urinary tract infection) (Acute) - Secondary Discharge Diagnosis Chronic Problems: Chronic Problems Tobacco use (Chronic) Chronic hypotension (Chronic) Anxiety and depression (Chronic) Smoker (Chronic) History of intravenous drug abuse (Chronic) Heroin Paraplegia (Chronic) history of left lower tooth abcess (Chronic) Psoriasis (Chronic) Diarrhea (Chronic) Nausea and vomiting (Chronic) Esophageal reflux (Chronic) Hospital Course and Treatment Imaging Results: Clinical Impression(s) from Imaging Studies Femur X-Ray 05/09/20 18:58 IMPRESSION: Displaced comminuted fracture of the right femoral shaft as detailed above. Electronically Signed: Yadiel Real MD at 19:34 EDT , Service support , Pelvis X-Ray 05/09/20 18:58 IMPRESSION: Old fracture of the inferior right pubic ramus. Avulsion fracture of the right ischium which is of indeterminate age. Electronically Signed: Yadiel Real MD at 19:37 EDT , Service support , Femur X-Ray 05/10/20 16:13 IMPRESSION: ORIF fracture of the distal femoral diaphysis. Correlate with findings at fluoroscopy. Electronically Signed: Mook Block MD at 1:12 EDT , Service support , Femur X-Ray 05/10/20 18:40 IMPRESSION: Status post placement of intramedullary leroy associated with a femoral fracture, grossly anatomic in alignment. Electronically Signed: Pat Hernandez MD at 23:49 EDT Tel , Service support , Nel Warner, orthopaedics. Operations: - - Intramedullary nail right femoral shaft Summary of Care Provided: The patient is a 39 year old F Joselo with a 2-day history of right leg pain. Patient was doing a figure 4 stretch with her left leg extended and then her right leg bent with the foot at her left knee and then was gently pushing down on her right lower extremity and heard a snap. Patient is paraplegic did not notice anything immediately but then the following day had increased pain and swelling in her leg. Patient presented emergency room was found to have a displaced mid right femoral fracture. Patient was taken to surgery on the where she had intramedullary nail placed. Patient did well afterwards. Patient was unsure about going to a residential facility versus home care but eventually agreed to home health care. Patient will be discharged with home health care today in stable condition. Additionally, patient was checked for 25 hydroxy vitamin D level which was 24. Goal level is 50. Patient has been started on ergocalciferol 50,000 units weekly. Patient will be discharged with 16 tablets of 10 mg of oxycodone. Patient will also receive prescription for lidocaine ointment to apply to right lower extremity if that helps. Patient be on 30days aspirin 81 mg twice daily. Patient was on aspirin daily prior to that and she will resume that when she is done with the twice daily dosing. Aspirin twice daily dosing is for VTE prophylaxis. Urinary tract infection and superior cath cellulitis site infection ruled out. Patient had colonization of her urine as well as around the tissue from her suprapubic catheter. Patient was started on nystatin as it appeared to be more yeast like and has had improvements. [] Patient Problems: Active and Suspected Problems Closed displaced transverse fracture of shaft of right femur (Acute) Fracture, ilium closed (Acute) Urinary catheter infection (Acute) UTI (urinary tract infection) (Acute) - Physical Exam Vitals/I&O's: Vital Signs Temp Pulse Resp BP Pulse Ox 36.8 C 71 18 96/47 L 98 05/13/20 10:27 05/13/20 10:27 05/13/20 10:27 05/13/20 10:05/13/20 10:27 Oxygen Flow Rate (L/min) 2 Oxygen Delivery Method Room Air Weight: 82.3 kg Body Mass Index (BMI) 23.9 Intake and Output for Last 24 Hours 05/11/20 05/12/20 05/13/20 23:59 23:59 23:59 Intake Total 1979 1250 / 1250 0 / 0 Output Total 2450 / 2450 1800 / 1800 750 / 750 Balance -470 / -470 -550 / -550 -750 / -750 General: No apparent distress HEENT: Atraumatic, Normocephalic Oral: Moist Mucosa, No Gingival or Mucosal Lesions/ Ulcerations Neck: No Nodes, Thyroid Normal Size and Texture Lungs: Clear to auscultation, Normal air movement, No rhonchi, No wheeze Cardiovascular: Regular rate, Regular Rhythm, Normal S1, Normal S2, No murmurs Abdomen: Bowel Sounds Present, Soft, Non Tender, Non-Distended, No Hepato-splenomegaly Microbiology Past 72 Hours 05/09/20 23:40 Wound - Abdominal Gram Stain - Final 05/09/20 23:40 Wound - Abdominal Wound Culture - Preliminary Coag Negative Staph Meth. resistant Staph. aureus Corynebacterium species 05/09/20 19:40 Suprapubic Tap Urine Culture - Final Enterobacter cloacae complex Laboratory Results 05/12/20 16:45: Vancomycin Trough 0.8 L Current Medications Acetaminophen (Tylenol) 1,000 mg PO Q8 [facility] Last Admin: 05/13/20 04:56 Dose: 1,000 mg Documented by: Al Hydroxide/Mg Hydroxide (Mylanta Ii) 30 ml PO Q6H PRN PRN PRN Reason: Gastric Burning Albuterol Sulfate (Ventolin Aerosols) 2.5 mg INHALATION Q2H PRN PRN PRN Reason: Dyspnea, wheezing Aspirin (Ecotrin) 81 mg PO BIDCM [facility] Last Admin: 05/13/20 10:21 Dose: 81 mg Documented by: Baclofen (Lioresal) 30 mg PO 4X/DAY [facility] Last Admin: 05/13/20 10:20 Dose: 30 mg Documented by: Calamine/Phenol (Calmoseptine Ointment) 1 applic TOPICAL 4X/DAY [facility]; Protocol Last Admin: 05/13/20 10:22 Dose: 1 applicatio Documented by: Clonazepam (Klonopin) 0.5 mg PO TID PRN PRN PRN Reason: ANXIETY Last Admin: 05/12/20 08:28 Dose: 0.5 mg Documented by: Dextrose (D50w Syringe) 0 gm IV X1 PRN; Protocol PRN Reason: Hypoglycemia Duloxetine HCl (Cymbalta) 120 mg PO DAILY [facility] Last Admin: 05/13/20 10:20 Dose: 120 mg Documented by: Enoxaparin Sodium (Lovenox) 40 mg SC DAILY@0600 [facility] Last Admin: 05/13/20 04:57 Dose: 40 mg Documented by: Famotidine (Pepcid) 20 mg PO BID [facility] Last Admin: 05/13/20 10:19 Dose: 20 mg Documented by: Fludrocortisone Acetate (Florinef) 0.1 mg PO DAILY@0800 [facility] Last Admin: 05/13/20 10:19 Dose: 0.1 mg Documented by: Gabapentin (Neurontin) 800 mg PO TIDCM [facility] Last Admin: 05/13/20 10:22 Dose: 800 mg Documented by: Glucagon () 1 mg IM .X1 PRN PRN Reason: Hypoglycemia Guaifenesin (Robitussin) 20 ml PO Q4H PRN PRN PRN Reason: COUGH Hydralazine HCl (Apresoline Iv) 10 mg IV Q4H PRN PRN PRN Reason: SBP > 160 Sodium Chloride () 250 mls @ 15 mls/hr IV .[id number] PRN PRN Reason: Saline Flush Lidocaine (Lidoderm Patch) 1 patch TOPICAL DAILY [facility]; Protocol Last Admin: 05/13/20 10:22 Dose: Not Given Documented by: Magnesium Hydroxide (Milk Of Magnesia) 30 ml PO DAILY PRN PRN PRN Reason: Constipation Melatonin (Melatonin) 3 mg PO QHS PRN PRN PRN Reason: INSOMNIA Last Admin: 05/10/20 21:35 Dose: 3 mg Documented by: Midodrine (Proamatine) 10 mg PO TID [facility] Last Admin: 05/13/20 04:56 Dose: 10 mg Documented by: Nicotine (Nicoderm Cq (Pbkc)) 14 mg TRANSDERM. DAILY [facility] Last Admin: 05/13/20 10:21 Dose: Not Given Documented by: Nystatin (Mycostatin) 1 applic TOPICAL BID [facility]; Protocol Last Admin: 05/13/20 10:23 Dose: 1 applicatio Documented by: Ondansetron HCl (Zofran) 4 mg IV Q8H PRN PRN PRN Reason: NAUSEA/VOMITING Oxycodone HCl (Oxyir) 10 mg PO Q4H PRN PRN PRN Reason: Pain Score 4-5/10 Last Admin: 05/13/20 10:19 Dose: 10 mg Documented by: Prochlorperazine Edisylate (Compazine Iv) 5 mg IV Q4H PRN PRN PRN Reason: Breakthrough nausea/vomiting Psyllium Hydrophilic Mucilloid (Metamucil) 1 packet PO DAILY PRN PRN PRN Reason: Constipation Senna/Docusate Sodium (Senokot-S, Prisca-Colace) 2 tablet PO BID PRN PRN PRN Reason: Constipation Sodium Chloride () 10 - 40 ml IV UD PRN PRN Reason: SALINE FLUSH Last Admin: 05/10/20 10:54 Dose: 10 ml Documented by: Throat Lozenges (Cepacol Sore Throat Lozenge) 1 lozenge MUCOUS MEM Q2H PRN PRN PRN Reason: SORE THROAT Tizanidine HCl (Zanaflex) 4 mg PO Q8H PRN PRN PRN Reason: SPASMS Last Admin: 05/09/20 22:58 Dose: 4 mg Documented by: Tolterodine Tartrate (Detrol La) 2 mg PO DAILY [facility] Last Admin: 05/13/20 10:21 Dose: 2 mg Documented by: Discharge Diet: No Restrictions Discharge Activity: May Not Drive, May Shower May shower in (days): 3 Ice area for (Minutes): 20 - Every hour while awake. Weight Bearing Status: Weight bearing as tolerated Keep extremity elevated above heart level: Operative Extremity Call your doctor if your incision/area has: Continuous Slow Oozing, Sudden Increased Bleeding, Increased Pain/ Swelling, Increased Redness, Foul Smelling Discharge Call your doctor if you observe: Fever of 101 or Higher, Coldness, Increased Pain, Numbness or Tingling, Change in Color, Calf discomfort Remove Dressing in (days):: 8 Home Medications: Medications to take at Discharge Baclofen 30 mg PO 4X/DAY 10/19/19 Duloxetine HCl 120 mg PO DAILY 10/19/19 Oxybutynin Chloride [Oxybutynin Chloride ER] 10 mg PO DAILY 12/24/19 Fludrocortisone Acetate [Florinef] 0.1 mg PO DAILY@0800 tab 12/30/19 Tizanidine HCl [Zanaflex] 4 mg PO Q8H PRN PRN tab 12/30/19 Clonazepam [Klonopin] 0.5 mg PO TID PRN 05/02/20 Gabapentin [Neurontin] 800 mg PO TIDCM 05/02/20 Midodrine HCl 10 mg PO TID 05/09/20 Multivitamin with Folic Acid [Thera Tablet] 400 mcg PO DAILY 05/09/20 traZODone [Desyrel] 50 mg PO QHS PRN 05/09/20 Acetaminophen [Tylenol] 1,000 mg PO Q8 tab 05/13/20 Aspirin E.C. [Ecotrin] 81 mg PO BIDCM tab 05/13/20 Ergocalciferol [Vitamin D] 50,000 unit PO Q7D #8 cap 05/13/20 Lidocaine 5 gm TP BID PRN PRN #1 cream..g. 05/13/20 Nystatin [Mycostatin] 1 applic TOPICAL BID #1 tube 05/13/20 Oxycodone [Oxyir] 10 mg PO Q6H PRN 4 Days #16 tablet 05/13/20 Following Prescrptions Were Given to Patient: Lidocaine 5 gm TP BID PRN PRN #1 cream..g. PRN Reason: pain Transmission Status: Pending to [facility] Nystatin [Mycostatin] 1 applic TOPICAL BID #1 tube Transmission Status: Pending to [facility] Oxycodone [Oxyir] 10 mg PO Q6H PRN 4 Days #16 tablet PRN Reason: Pain Score 6-10/10 Transmission Status: Sent to [facility] Ergocalciferol [Vitamin D] 50,000 unit PO Q7D #8 cap Transmission Status: Pending to [facility] Primary Care Physician: Qamar Zimmer MD [Primary Care Provider] - Within 2 Weeks Please Follow Up With: Shubham Warner MD When: 2 weeks call for appt. [phone] Disposition: Home Minutes spent on discharge:: 35 Patient Condition:: Fair Medical Necessity - Tobacco Use Smoking Status: Current every day smoker Tobacco Use: Cigarettes Meaningful Use Info Meaningful Use Diagnoses (Choose all that apply): None applicable Inpatient E&M: 45407 Disch Hosp
--- NOTE | 2020-05-13 11:30 | CASEMGMT ---
Addendum entered by Lakesha Granados 05/13/20 15:46: Received call back from Belem at [facility]. Per Belem since several [facility] agencies were not able to accept the patient, she would authorize an [id number] agencies paid as medicaid rates for services. ANTONIETTA CRAMER called [facility] back to discuss [id number] benefits and after reviewing are still unable to accept patient. ANTONIETTA CRAMER also called [facility] regarding [id number] benefits and they are not able to accept either. ANTONIETTA CRAMER then called [facility] and asked about [id number] benefits and they are currently reviewing. Received another call from Belem that she spoke to [facility] as to why they would not accept her back as she was still showing as a current patient. Per Belem, [facility] said the patient had several no shows. Also per Belem, [facility] is reviewing case again to see if they could accept. ANTONIETTA CRAMER in to updated patient in room. Patient can still discharge home today and CM will continue to assist with HHC setup. ANTONIETTA CRAMER confirmed patient's address as [address] [place] [address] cell [phone]. ANTONIETTA CRAMER explained to patient that per [facility] she had missed several home visits. Patient states she was between places of living. Patient confirms that she will be at this residence and will answer call from [facility] if they reaccept her. ANTONIETTA CRAMER called [facility] and updated regarding conversation with patient and confirmed address and phone number. CM will continue to follow this patient and assist with HHC setup. Addendum entered by Lakesha Granados 05/13/20 14:08: [facility] is unable to accept patient. ANTONIETTA CRAMER called [facility], [facility], [facility], [facility], [place], and [facility], [facility]. All are unable to accept patient either due to staffing or not accepting insurance. ANTONIETTA CRAMER called [facility] at [facility] who put this RN BELA in touch with [facility] in Home Health department. [facility]lem to assist in Home Healthcare settup. RN BELA updated the patient. CM will continue to work on Original Note: ANTONIETTA CRAMER in to discuss HHC choices, patient would like [facility]. ANTONIETTA CRAMER sent referral and received call back that patient's insurance is not in-network with [facility]. ANTONIETTA CRAMER updated patient. Patient's second choice is [facility], referral sent at this time and awaiting call back.
--- NOTE | 2020-05-13 11:30 | CASEMGMT ---
Social Work Note Pt is discharging home with HHC today. RN CM in to speak with pt regarding HHC and pt mentioned again that she will need transport home. Pt confirmed that transportation will need to be arranged after 4:00pm as her friend doesn't get home till 4:00pm. TEODORO placed a call to [facility] to schedule transportation. TEODORO requested 4:30pm transport [facility] states that they have no wheelchair vans available at 4:30pm but will send stretcher to [facility] and bill as wheelchair van. TEODORO completed both wheelchair van and ambulance transport form in the event [facility] need both forms completed and provided to alumni secretary. Lakesha Grullon DRAPERY CUTTER MACHINE, CHOPPER OPERATOR
--- NOTE | 2020-05-13 11:45 | PHA.DC.MR ---
Pharmacy Service has performed discharge medication reconciliation for this patient. New prescription information was printed off via [employer] and left for the nurse to provide to the patient. Patient is in contact precautions, so pharmacy did not enter the room at this time. RN aware Krames are printed and in her mailbox. Home Medications Baclofen 30 mg PO 4X/DAY 10/19/19 Duloxetine HCl 120 mg PO DAILY 10/19/19 Oxybutynin Chloride [Oxybutynin Chloride ER] 10 mg PO DAILY 12/24/19 Fludrocortisone Acetate [Florinef] 0.1 mg PO DAILY@0800 tab 12/30/19 Tizanidine HCl [Zanaflex] 4 mg PO Q8H PRN PRN tab 12/30/19 Clonazepam [Klonopin] 0.5 mg PO TID PRN 05/02/20 Gabapentin [Neurontin] 800 mg PO TIDCM 05/02/20 Midodrine HCl 10 mg PO TID 05/09/20 Multivitamin with Folic Acid [Thera Tablet] 400 mcg PO DAILY 05/09/20 traZODone [Desyrel] 50 mg PO QHS PRN 05/09/20 Acetaminophen [Tylenol] 1,000 mg PO Q8 tab 05/13/20 Aspirin E.C. [Ecotrin] 81 mg PO BIDCM tab 05/13/20 Ergocalciferol [Vitamin D] 50,000 unit PO Q7D #8 cap 05/13/20 Lidocaine [Lidocaine 5%] 35 gm TOPICAL BID #1 tube 05/13/20 Nystatin [Mycostatin] 1 applic TOPICAL BID #1 tube 05/13/20 Oxycodone [Oxyir] 10 mg PO Q6H PRN 4 Days #16 tab 05/13/20 The patient's discharge medication list was reviewed for discrepancies and discrepancies were resolved.
--- NOTE | 2020-05-13 13:30 | CASEMGMT ---
Social Work Note TEODORO updated that pt is going to different address than what is on pt's demographics. New address is [address] [place] [address]. SW in to speak with pt. Pt confirms new address, does state they are some steps to enter. Pt states that transport can come at anytime now as her friend who she will be staying with now is home and will be home. TEODORO updated pt that this worker will call transport and change address but can't guarantee the time of transport could be changed. [facility] is also still needing to be arranged. TEODORO placed a call to [facility] and updated on changed address. [facility] kept same time of 4:30pm pick pulling machine operator for pt. SW updated pt on transportation time. Pt asked if she is able to find a ride sooner if she would be able to leave as she has things going on at home. TEODORO informed pt that the discharge is in, she can leave whenever, just to let staff know if she finds a ride sooner. Pt states understanding. TEODORO updated RN on above information. TEODORO placed a call to Belem at [facility] and updated her on that pt will now be going home at discharge. Lakesha Grullon ROTOPRINTER, INFORMATICS APPLICATION ANALYST
--- NOTE | 2020-05-14 16:30 | CASEMGMT ---
RN CM called surgeon PA to clarify if patient will need therapy at discharge. Per PA, patient does not need therapy at discharge. Patient to follow-up with ortho in 2 weeks on 05/27/20. RN CM called and updated the patient. Patient voiced understanding and states she had no further questions or concerns at this time. Patient states that she was able to fill prescriptions without any issues. RN BELA also updated Belem at [facility] that per ortho PA, patient does not need therapy at this time.
== END 2020-05-13 16:41 | disposition home or self-care (01) | DRG 912 ==
LOC: ED 19:46 → MS3 20:21
PROVIDERS: Specialist; Admitting Provider Family Medicine; Emergency Provider Emergency Medicine; PCP Family Medicine; Referring Provider Family Medicine
PROC: 0QS806Z Reposition Right Femoral Shaft with Intramedullary Internal Fixation Device, Open Approach (ICD-10-PCS; CPT 27245; principal; 2020-05-10 15:05)
DX: S72.321A Displaced transverse fracture of shaft of right femur, initial encounter for closed fracture (principal); X58.XXXA Exposure to other specified factors, initial encounter; S32.611A Displaced avulsion fracture of right ischium, initial encounter for closed fracture; F17.210 Nicotine dependence, cigarettes, uncomplicated; I95.89 Other hypotension; F32.9 Major depressive disorder, single episode, unspecified; F41.9 Anxiety disorder, unspecified; G82.50 Quadriplegia, unspecified; L40.9 Psoriasis, unspecified; K21.9 Gastro-esophageal reflux disease without esophagitis; D50.9 Iron deficiency anemia, unspecified; N31.9 Neuromuscular dysfunction of bladder, unspecified; R19.7 Diarrhea, unspecified; R11.2 Nausea with vomiting, unspecified; B19.20 Unspecified viral hepatitis C without hepatic coma; B37.2 Candidiasis of skin and nail; M81.0 Age-related osteoporosis without current pathological fracture; M85.80 Other specified disorders of bone density and structure, unspecified site; Z99.3 Dependence on wheelchair; Z21 Asymptomatic human immunodeficiency virus [HIV] infection status; Z86.14 Personal history of Methicillin resistant Staphylococcus aureus infection; Z86.59 Personal history of other mental and behavioral disorders; Z86.61 Personal history of infections of the central nervous system; Z79.52 Long term (current) use of systemic steroids; Z79.82 Long term (current) use of aspirin; Z79.899 Other long term (current) drug therapy
CPT/HCPCS: 36415; 72170; 73552; 76000; 80048; 80053; 80202; 81001; 82306; 82607; 82652; 82728; 82746; 83540; 83550; 83735; 85025; 85610; 85730; 86850; 86900; 86901; 87070; 87077; 87086; 87088; 87186; 87205; 87635; 87640; 93005; 97110; 97162; 97166; 97530; 99251; 99285; 99406; C1776; G2023; J7030; J7040; J7120; A4216; G0463; J2405; U0003

== ENCOUNTER 2020-06-29 15:05 | Inpatient (IN) | payer MEDICAID, SELFPAY ==
[2020-05-10 13:37] VITALS: BMI 23.9
[2020-06-29] VITALS (7 sets, daily range): BP systolic 123–187; BP diastolic 85–126; PULSE 62–86; RESP 16–24; TEMP 36.1–36.9; O2SAT 97–100; BMI 24.0; BMI 23.1
--- NOTE | 2020-06-29 15:14 | EKG12_ITS ---
Test Reason : ETOH Blood Pressure : / mmHG Vent. Rate : 099 BPM Atrial Rate : 099 BPM P-R Int : 132 ms QRS Dur : 104 ms QT Int : 376 ms P-R-T Axes : 050 084 051 degrees QTc Int : 482 ms Normal sinus rhythm Incomplete right bundle branch block Prolonged QT Abnormal ECG Confirmed by ANUJ RAMOS, AMAYA ([id number]), legal editor MORGAN CASTAÑEDA ([id number]) on 07/01/2020 9:46:10 AM Referred By: Jaleel Dejesus Confirmed By:AMAYA LESLIE MD
[2020-06-29] MEDS: cloNIDine HCl 0.1 MG Tablet PO ×2 (15:45→21:36)
--- NOTE | 2020-06-29 15:45 | ED.DCSUM_ITS ---
- ER Visit Summary Date of Service: 06/29/20 Chief Complaint: Requesting detox History of Present Illness: The patient is a 39 F presenting requesting detox from heroin. She states she ran out of her gabapentin and Klonopin yesterday. She has bilateral lower extremity pain. 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 She has chronic pain in her legs. She is wheelchair-bound. She uses a Charles catheter. Her last heroin use was yesterday. She uses approximately 1 g/day. She denies other drug use. Denies alcohol use. Denies fever or cough. Denies chest pain or shortness of breath. Physical Examination: Vitals are stable. Patient is afebrile. Alert no acute distress. HEENT exam is unremarkable. Neck is supple. Lungs are clear and equal bilaterally. Heart is regular rate and rhythm. Abdomen is soft nontender nondistended. Extremities are unremarkable. Skin is diaphoretic Remainder of exam is unremarkable. Emergency Department Course and Treatment: Patient was given Toradol, Zofran, clonidine. EKG is sinus rate of 99 with incomplete right bundle branch block. CBC, chemistries unremarkable. Alk phos 192, AST 55. hCG negative. Alcohol negative. She was given buprenorphine in the ED. Discussed with the hospitalist for admission. Disposition: Admission Impression: Heroin withdrawal This note was generated with [employer] dictation software. It may contain incorrect words, spelling, and punctuation that were not noted in review of the chart prior to signing ED Disposition - Plan for ED Patient: Referrals: Qamar Zimmer MD [Primary Care Provider] -
[2020-06-29] MEDS: 0.9% Normal Saline 1,000 ML 1000 ML IV (15:51)
[2020-06-29] MEDS: Ketorolac 15 MG/ML Vial IV (15:51)
[2020-06-29] MEDS: Ondansetron 4 MG/2 ML Vial IV (15:51)
[2020-06-29 15:55] LABS: Absolute Lymphocyte Count 1.85 X10^3/uL (0.83-4.51); Absolute Neutrophil Count 7.6 X10^3/uL (2.0-7.7); Basophil# 0.05 X10^3/uL; Basophil% 0.5 % (0-1); Eosinophil# 0.08 X10^3/uL; Eosinophils% 0.8 % (0-5); Hemoglobin 12.2 g/dL (12.0-15.0); Lymphocyte # 1.85 X10^3/ul (4.0); Lymphocyte % 18.4 % (19-41); Mean Corp Hgb Conc 29.8 g/dL (32-36); Mean Corpuscular Hgb 21.4 pg (27.0-32.0); Mean Corpuscular Volume 72.1 fL (81-99); Mean Platelet Vol. 11.3 fl (6.2-12.0); Monocyte# 0.44 X10^3/uL; Monocyte% 4.4 % (0-10); NRBC Flagged by Analyzer 0 % (0-5); Neutrophil # 7.59 X10^3/uL (2.7-7.7); Neutrophil % 75.6 % (47-70); POSITIVE COUNT YES; Platelet Count 266 K/mm3 (150-450); RBC Distribution Width CV 17.7 % (11.6-14.6); RBC Distribution Width SD 43.4 fl (35.1-43.9); Red Blood Count 5.69 M/mm3 (4.2-5.4)
[2020-06-29 15:58] LABS: Differential Indicated SCAN CRITERIA MET; Internal QC Validated? YES +Cl - CLEAR BKGD; Pregnancy, Serum, hCG Quali. NEGATIVE Negative
--- NOTE | 2020-06-29 16:00 | RAD_ITS ---
STUDY: X-RAY CHEST REASON FOR EXAM: Female, 39 years old. SOB TECHNIQUE: AP portable COMPARISON: 03/16/2020 FINDINGS: The lungs are clear and expanded. There is no demonstrated pleural abnormality. Normal size heart. Normal mediastinum and rufino. Normal visualized pulmonary arteries. Normal visualized aortic arch and descending thoracic aorta. Dorsal spine demonstrates scoliosis or splinting secondary to muscle spasm. Normal visualized ribs, clavicles, and shoulders. Postop change status post multilevel cervical fusion There is no demonstrated abnormality of the visualized soft tissue structures of the upper abdomen. RAD/Chest 1 View (Portable) IMPRESSION: No acute cardiopulmonary pathology Electronically Signed: Qamar Causey MD at 16:33 EDT , Service support ,
[2020-06-29 16:37] LABS: Anisocytosis 1+; Hypochromasia 2+; Microcytosis 3+; Platelet Estimate ADEQUATE (ADEQ)
[2020-06-29 16:49] LABS: ALB/GLOB Ratio 0.8 RATIO (0.9-2.4); AST(SGOT) 55 U/L (15-37); Alanine Aminotransfer ALT/SGPT 22 U/L (13-56); Albumin, Serum 3.6 g/dL (3.2-5.0); Alkaline Phosphatase 192 U/L (45-117); Anion Gap 10 (5-15); BUN 7 mg/dL (7-18); BUN/Creat Ratio 13.3 RATIO (10-20); Calcium,Total 9.6 mg/dL (8.5-10.1); Chloride 104 mmol/L (98-107); Creatinine, Serum 0.53 mg/dL (0.55-1.02); EST Glomerular Filtration Rate 138 mL/min (>60); Est Glom Filt Rate - Afr Amer 167 mL/min (>60); Estimated Creatinine Clearance 171.31 ml/min; Globulin 4.8 g/dL (2.2-4.2); Glucose 109 mg/dL (74-106); Protein, Total 8.4 g/dL (6.4-8.2); Sodium Level 137 mmol/L (136-145)
[2020-06-29] MEDS: BUPRENORPHINE HCL 8 MG TAB.SUBL SL (17:04)
--- NOTE | 2020-06-29 17:11 | PCM.HP.STD ---
Problem List (1) Opiate withdrawal Status: Acute (2) Anxiety and depression Status: Chronic (3) Esophageal reflux Status: Chronic Qualifiers: (4) Paraplegia Status: Chronic (5) Smoker Status: Chronic (6) Neurogenic bladder Status: Chronic History of Present Illness Date of Admission: 06/29/20 Chief Complaint: opiate withdrawal The patient is a 39 year old F with past medical history notable for IV drug abuse, paraplegia secondary to a spinal abscess, who presents to the emergency room with request for detox from heroin. The patient states she has been injecting 1 to 2 g/day of fentanyl and carfentanyl. Her last use was about 6 PM last evening. She states she has never been through detox before. She states she has been using for many years and cannot tell me specifically how long. She denies any other illicit drug use. She does smoke cigarettes. She does not drink alcohol. She states that her current withdrawal symptoms include restless legs, anxiety, nausea with no vomiting, pain all over, runny nose, restlessness, hot flashes. She currently does not have a plan to remain sober at discharge. [] Past Medical History Past Medical History (Chronic Problems): Chronic Problems Tobacco use (Chronic) Chronic hypotension (Chronic) Anxiety and depression (Chronic) Neurogenic bladder (Chronic) Smoker (Chronic) History of intravenous drug abuse (Chronic) Heroin Paraplegia (Chronic) history of left lower tooth abcess (Chronic) Psoriasis (Chronic) Diarrhea (Chronic) Nausea and vomiting (Chronic) Esophageal reflux (Chronic) Allergies Penicillins Adverse Reaction (Verified 06/29/20 15:13) PT UNSURE OF REACTION Home Medications: Ambulatory Orders Medication Instructions Recorded Baclofen 30 mg PO 4X/DAY 10/19/19 Duloxetine HCl 120 mg PO DAILY 10/19/19 Oxybutynin Chloride [Oxybutynin 10 mg PO DAILY 12/24/19 Chloride ER] Fludrocortisone Acetate [Florinef] 0.1 mg PO DAILY@0800 tab 12/30/19 Tizanidine HCl [Zanaflex] 4 mg PO Q8H PRN PRN tab 12/30/19 Clonazepam [Klonopin] 0.5 mg PO TID PRN 05/02/20 Gabapentin [Neurontin] 800 mg PO TIDCM 05/02/20 Midodrine HCl 10 mg PO TID 05/09/20 Multivitamin with Folic Acid 400 mcg PO DAILY 05/09/20 [Thera Tablet] traZODone [Desyrel] 50 mg PO QHS PRN 05/09/20 Acetaminophen [Tylenol] 1,000 mg PO Q8 tab 05/13/20 Aspirin E.C. [Ecotrin] 81 mg PO BIDCM tab 05/13/20 Ergocalciferol [Vitamin D] 50,000 unit PO Q7D #8 cap 05/13/20 Lidocaine [Lidocaine 5%] 35 gm TOPICAL BID #1 tube 05/13/20 Nystatin [Mycostatin] 1 applic TOPICAL BID #1 tube 05/13/20 Surgical History: - - Suprapubic catheter placement, debridements to abdominal wall and trochanteric areas secondary to pressure ulcers and nonhealing chronic wounds, prior history spinal abscess with intervention. 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 Paternal History Items: - - Patient denies knowing any of her paternal family history and states she has no relationship nor does she know her father. Review of Systems Constitutional: Denies: Chills, Fever, Weight Change HEENT: Reports: - - rhinitis. Denies: Difficulty Hearing, Head Aches, Sinus Congestion, Sinus Drainage, Visual Changes Cardiovascular: Denies: Chest Pain, Palpitations Respiratory: Denies: Cough, Shortness of Breath, Shortness of breath at rest, Sputum production Gastrointestinal: Reports: Nausea. Denies: Abdominal Pain, Diarrhea, Vomiting Genitourinary: Denies: Dysuria, Frequency, Urgency Musculoskeletal: Reports: - - all over body pain. Denies: Joint Pain, Joint Tenderness Skin: Denies: Rash, Wounds Neurological: Denies: Numbness, Tingling, Focal weakness Psychiatric: Reports: Anxiety. Denies: Depression, Homicidal Ideations, Suicidal Ideations Hematologic/ Lymphatic: Denies: Easy Bruising, Easy Bleeding VTE Information - Inpt Only VTE Present on Admission: No VTE Mechan Device Prophylaxis: None VTE Pharm Prophylaxis ordered?: Yes Patient Problems: Active and Suspected Problems Opiate withdrawal (Acute) - Physical Exam Vitals/I&O's: Vital Signs Temp Pulse Resp BP Pulse Ox 97.6 F L 83 16 148/92 H 97 06/29/20 15:06 06/29/20 16:35 06/29/20 16:35 06/29/20 16:35 06/29/20 16:35 Oxygen Delivery Method Room Air Weight: 181 lb 14.102 oz Body Mass Index (BMI) 24.0 General: Alert, Oriented x3, Cooperative HEENT: Atraumatic, PERRLA, EOMI, Normocephalic Neck: Supple, No JVD, Negative Carotid Bruits Lungs: Clear to auscultation, Normal air movement Cardiovascular: Regular rate, No murmurs Abdomen: Bowel Sounds Present, Soft, Non Tender Extremities: No edema, Capillary Refill Less than 3 Seconds Skin: No rashes, No breakdown Musculoskeletal: No Tenderness to Palpation of Joints or Extremities Neurological: Cranial nerves II-XII grossly intact Psych/Mental Status: Normal Affect, Appropriate, Alert and oriented to time, place, person, mood and affect Laboratory Results 06/29/20 15:30: WBC 10.0, RBC 5.69 H, Hgb 12.2, Hct 41.0, MCV 72.1 L, MCH 21.4 L, MCHC 29.8 L, RDW Std Deviation 43.4, RDW Coeff of Domonique 17.7 H, Plt Count 266, MPV 11.3, Immature Gran % (Auto) 0.300, Neut % (Auto) 75.6 H, Lymph % (Auto) 18.4 L, [place] % (Auto) 4.4, Eos % (Auto) 0.8, Baso % (Auto) 0.5, Absolute Neuts (auto) 7.6, Absolute Lymphs (auto) 1.85, Nucleated RBC % 0, Differential Comment COMMENT, Platelet Estimate ADEQUATE, Hypochromasia 2+, Anisocytosis 1+, Microcytosis 3+ 06/29/20 15:30: Sodium 137, Potassium 4.0, Chloride 104, Carbon Dioxide 23.0, Anion Gap 10, BUN 7, Creatinine 0.53 L, Estim Creat Clear Calc 171.31, Est GFR (MDRD) Af Amer 167, Est GFR (MDRD) Non-Af 138, BUN/Creatinine Ratio 13.3, Glucose 109 H, Calcium 9.6, Total Bilirubin 0.70, AST 55 H, ALT 22, Alkaline Phosphatase 192 H, Total Protein 8.4 H, Albumin 3.6, Globulin 4.8 H, Albumin/Globulin Ratio 0.8 L 06/29/20 15:30: Ethyl Alcohol 7.0 06/29/20 15:30: Serum , Qual NEGATIVE Current Medications Buprenorphine HCl (Buprenorphine Hcl) 8 mg SL DAILY [facility] Last Admin: 06/29/20 17:04 Dose: 8 mg Documented by: Assessment/Plan All Active Problems Closed displaced transverse fracture of shaft of right femur (Acute) Fracture, ilium closed (Acute) Urinary catheter infection (Acute) UTI (urinary tract infection) (Acute) Opiate withdrawal (Acute) Pressure injury of trochanteric region of right hip, stage 3 (Acute) Skin ulcer of abdominal wall with fat layer exposed (Acute) Cellulitis (Acute) Sepsis (Acute) Blister of right heel with infection (Acute) Abdominal wall cellulitis (Acute) 1. Acute opiate withdrwawal - last use 6 pm. states she uses 1-2 g fentanyl /carfentanyl / day. She has never been through detox. Initiate subutex taper. 2. Pareplegia, neurogenic bladder - BL LE paralysis. On baclofen. 3. Nicotine abuse - patch 4. Anxiety/depression - duloxetine, trazodone, klonopin DVT ppx: early mobilization. DC Pl[facility] referral This patient was seen by Anish Mccarty PA-C under the supervision of Doctor Dejesus.
[2020-06-29 17:25] LABS: Mucous, Urine 0 SEEN /hpf (<or=2+); Squamous Epithelial Cells - UA 0 SEEN /hpf (5-10)
[2020-06-29 17:50] LABS: Color, Urine Yellow (Yellow); Glucose, Dipstick Normal (Normal); Leukocyte Esterase-Dipstick 500 /ul (Negative); Nitrite-Dipstick Positive (Negative); Occult Blood-Urine 25 /ul (Negative); Protein-Dipstick 100 mg/dl (Negative); Urine Bilirubin Dipstick Negative (Negative); Urine Clarity Cloudy (Clear); Urine Urobilinogen Normal (Normal)
[2020-06-29 17:58] LABS: Ketone-Dipstick 150 mg/dl (Negative)
[2020-06-29 18:12] LABS: Red Blood Cells-Urine 0-5 SEEN /hpf (0-5); White Blood Cells 25-50 SEEN /hpf (0-5)
[2020-06-29 18:13] LABS: Amorphous Sediment 3+; Amphetamine Urine VISTA NEGATIVE (<1000 ng/mL); Bacteria 2+ /hpf (None Seen); Barbiturate Urine VISTA NEGATIVE (< 200 ng/mL); Benzodiazepine Urine VISTA NEGATIVE (< 200 ng/mL); Cocaine Urine VISTA NEGATIVE (< 300 ng/mL); Ecstacy Urine VISTA NEGATIVE (< 500 ng/mL); Methadone Urine VISTA NEGATIVE (< 300 ng/mL); PCP Urine VISTA NEGATIVE (< 25 ng/mL); THC Urine VISTA POSITIVE (< 50 ng/mL); Vista UDS pH Range 6
--- NOTE | 2020-06-29 18:39 | CM.ED ---
Social Work Consult: Substance Abuse Informant: Self Referral Attempted to meet with patient in room. After this psychiatric social worker supervisor introduced self and role patient states I feel terrible, I just need my space right now. This psychiatric social worker supervisor respecting patient request. Patient confirming to be seeking medical management of withdrawal symptoms. Telephone call to [facility]. Updated [facility] on patient being admitted to [facility]. Mack Edmondson MSW, LUIS MANUEL
[2020-06-29] MEDS: 0.9% Saline Lock 10 ML Syringe IV (21:33)
[2020-06-29] MEDS: Menthol/Lanolin/Calamine/Znox 113 GM Tube 1 APPLIC TOPICAL (21:35)
[2020-06-29] MEDS: Acetaminophen 500 MG Tablet 1000 MG PO (21:35)
[2020-06-29] MEDS: clonazePAM 0.5 MG Tablet PO (21:36)
[2020-06-29] MEDS: Baclofen 10 MG Tablet 30 MG PO (21:36)
[2020-06-29] MEDS: Methocarbamol 750 MG Tablet 1500 MG PO (21:36)
[2020-06-29] MEDS: Buprenorphine HCl 2 MG TAB.SUBL SL (21:42)
[2020-06-30 03:09] VITALS: BP 120/70; PULSE 83; RESP 16; TEMP 36.8; O2SAT 98
[2020-06-30] MEDS: Methocarbamol 750 MG Tablet 1500 MG PO (03:33)
[2020-06-30] MEDS: Buprenorphine HCl 2 MG TAB.SUBL SL ×3 (05:09→22:00)
[2020-06-30] MEDS: Acetaminophen 500 MG Tablet 1000 MG PO ×3 (05:10→22:01)
--- NOTE | 2020-06-30 08:58 | ADDICTION ---
This personal lines underwriter attempted to meet with patient in her room to complete ASAM, MSE and DUDIT assessments and to begin processing discharge. Patient refused to meet with this personal lines underwriter today and asked to be seen tomorrow. This personal lines underwriter will meet with patient at next visit.
[2020-06-30 09:10] VITALS: BP 116/70; PULSE 71; RESP 18; TEMP 37; O2SAT 97
[2020-06-30] MEDS: Menthol/Lanolin/Calamine/Znox 113 GM Tube 1 APPLIC TOPICAL ×3 (09:13→22:01)
[2020-06-30] MEDS: Enoxaparin 40 MG/0.4 ML Syringe SC (09:14)
[2020-06-30] MEDS: DULoxetine Hcl 60 MG Capsule 120 MG PO (09:14)
[2020-06-30] MEDS: Aspirin E.C. 81 MG Tablet PO (09:14)
[2020-06-30] MEDS: Baclofen 10 MG Tablet 30 MG PO ×4 (09:15→22:00)
[2020-06-30] MEDS: Gabapentin 800 MG Tablet PO ×3 (09:16→18:06)
[2020-06-30] MEDS: clonazePAM 0.5 MG Tablet PO ×2 (09:39→22:03)
[2020-06-30] MEDS: 0.9% Saline Lock 10 ML Syringe IV (09:39)
--- NOTE | 2020-06-30 13:06 | PN_ITS ---
Patient Problems: Active and Suspected Problems Opiate withdrawal (Acute) Vitals/I&O's: Vital Signs Temp Pulse Resp BP Pulse Ox 98.6 F 71 18 116/70 97 06/30/20 09:10 06/30/20 09:10 06/30/20 09:10 06/30/20 09:10 06/30/20 09:10 Oxygen Delivery Method Room Air Weight: 175 lb Body Mass Index (BMI) 23.1 Intake and Output for Last 24 Hours 06/28/20 06/29/20 06/30/20 23:59 23:59 23:59 Intake Total 1000 / 1200 650 / 650 Output Total 800 / 800 Balance 1000 / 700 -150 / -150 General: Confused, Disoriented, Lethargic HEENT: Atraumatic, PERRLA, EOMI, Normocephalic Neck: Supple, No JVD, Negative Carotid Bruits Lungs: Clear to auscultation, No rhonchi, No wheeze, No rales, Diminished Cardiovascular: Regular rate, Regular Rhythm, Normal S1, Normal S2, No murmurs Abdomen: Bowel Sounds Present, Soft, Non Tender, Non-Distended Extremities: No edema, Capillary Refill Less than 3 Seconds Skin: No rashes, No breakdown Musculoskeletal: No Tenderness to Palpation of Joints or Extremities Neurological: Deep Tendon Reflexes 2+/4 and Symmetrical, - - Patient is parapl egic below the waist level. Neurogenic bladder. Patient had spinal abscess. Psych/Mental Status: Anxious, Flat Affect Laboratory Results 06/29/20 15:30: WBC 10.0, RBC 5.69 H, Hgb 12.2, Hct 41.0, MCV 72.1 L, MCH 21.4 L , MCHC 29.8 L, RDW Std Deviation 43.4, RDW Coeff of Domonique 17.7 H, Plt Count 266, MPV 11.3, Immature Gran % (Auto) 0.300, Neut % (Auto) 75.6 H, Lymph % (Auto) 18.4 L, [place] % (Auto) 4.4, Eos % (Auto) 0.8, Baso % (Auto) 0.5, Absolute Neuts (auto) 7.6, Absolute Lymphs (auto) 1.85, Nucleated RBC % 0, Differential Comment COMMENT, Platelet Estimate ADEQUATE, Hypochromasia 2+, Anisocytosis 1+, Microcytosis 3+ 06/29/20 15:30: Sodium 137, Potassium 4.0, Chloride 104, Carbon Dioxide 23.0, Anion Gap 10, BUN 7, Creatinine 0.53 L, Estim Creat Clear Calc 171.31, Est GFR (MDRD) Af Amer 167, Est GFR (MDRD) Non-Af 138, BUN/Creatinine Ratio 13.3, Glucose 109 H, Calcium 9.6, Total Bilirubin 0.70, AST 55 H, ALT 22, Alkaline Phosphatase 192 H, Total Protein 8.4 H, Albumin 3.6, Globulin 4.8 H, Albumin/Globulin Ratio 0.8 L 06/29/20 15:30: Ethyl Alcohol 7.0 06/29/20 15:30: Serum , Qual NEGATIVE 06/29/20 17:05: Urine Color Yellow, Urine Clarity Cloudy, Urine pH 7.0, Ur Specific [place] 1.020, Urine Protein 100 H, Urine Glucose (UA) Normal, Urine Ketones 150 H, Urine Occult Blood 25 H, Urine Nitrite Positive H, Urine Bilirubin Negative, Urine Urobilinogen Normal, Ur Leukocyte Esterase 500 H, Urine RBC 0-5 SEEN, Urine WBC 25-50 SEEN, Ur Squamous Epith Cells 0 SEEN, Amorphous Sediment 3+, Urine Bacteria 2+, Urine Mucus 0 SEEN 06/29/20 17:05: Urine Opiates Screen POSITIVE H, Urine Methadone Screen NEGATIVE, Ur Barbiturates Screen NEGATIVE, Ur Phencyclidine Scrn NEGATIVE, Ur Amphetamines Screen NEGATIVE, U Methamphetamin-MDMA NEGATIVE, U Benzodiazepines Scrn NEGATIVE, Urine Cocaine Screen NEGATIVE, U Cannabinoids Screen POSITIVE H, Ur Drug Screen Comment Current Medications Acetaminophen (Tylenol) 1,000 mg PO Q8 [facility] Last Admin: 06/30/20 05:10 Dose: 1,000 mg Documented by: [facility]) [facility] Last Admin: 06/30/20 09:14 Dose: 81 mg Documented by: [facility]aclof[facility] ([facility]ioresal) [facility] Last Admin: 06/30/20 11:59 Dose: 30 mg Documented by: Buprenorphine HCl (Buprenorphine Hcl) 4 mg SL Q8H [facility]; Taper Stop: 07/02/20 21:29 Last Admin: 06/30/20 05:09 Dose: 4 mg Documented by: Calamine/Phenol (Calmoseptine Ointment) 1 applic TOPICAL 4X/DAY [facility]; Protocol Last Admin: 06/30/20 09:13 Dose: 1 applic Documented by: Clonazepam (Klonopin) 0.5 mg PO TID PRN PRN Reason: ANXIETY Last Admin: 06/30/20 09:39 Dose: 0.5 mg Documented by: Clonidine (Catapres) 0.1 mg PO Q8H PRN PRN PRN Reason: RESTLESSNESS Last Admin: 06/29/20 21:36 Dose: 0.1 mg Documented by: Duloxetine HCl (Cymbalta) 120 mg PO DAILY [facility] Last Admin: 06/30/20 09:14 Dose: 120 mg Documented by: Enoxaparin Sodium (Lovenox) 40 mg SC DAILY [facility] Last Admin: 06/30/20 09:14 Dose: 40 mg Documented by: Gabapentin (Neurontin) 800 mg PO TIDCM [facility] Last Admin: 06/30/20 11:58 Dose: 800 mg Documented by: Loperamide HCl (Imodium) 2 mg PO Q4H PRN PRN PRN Reason: LOOSE STOOLS Methocarbamol (Methocarbamol) 1,500 mg PO Q6H PRN PRN PRN Reason: MUSCLE SPASM Last Admin: 06/30/20 03:33 Dose: 1,500 mg Documented by: Nicotine (Nicoderm Cq (Pbkc)) 21 mg TRANSDERM. DAILY [facility] Last Admin: 06/30/20 09:13 Dose: Not Given Documented by: Nutritional Formula (Lactose Free) (Ensure Enlive) 120 ml PO 4X/DAY [facility] Last Admin: 06/30/20 09:12 Dose: Not Given Documented by: Ondansetron HCl (Zofran) 8 mg PO Q8H PRN PRN PRN Reason: NAUSEA Sodium Chloride () 10 - 40 ml IV UD PRN PRN Reason: SALINE FLUSH Last Admin: 06/30/20 09:39 Dose: 10 ml Documented by: STROKE Vital Signs/Narrative: Vital Signs Temp Pulse Resp BP Pulse Ox 06/30/20 09:10 98.6 F 71 18 116/70 97 Medical Necessity - Tobacco Use Smoking Status: Current every day smoker Tobacco Use: Cigarettes Assessment/Plan All Active Problems Closed displaced transverse fracture of shaft of right femur (Acute) Fracture, ilium closed (Acute) Urinary catheter infection (Acute) UTI (urinary tract infection) (Acute) Opiate withdrawal (Acute) Pressure injury of trochanteric region of right hip, stage 3 (Acute) Skin ulcer of abdominal wall with fat layer exposed (Acute) Cellulitis (Acute) Sepsis (Acute) Blister of right heel with infection (Acute) Abdominal wall cellulitis (Acute) This 31-year-old female with history of IV opioid use, heroin fentanyl, fentanyl was admitted for medical stabilization. 1. Acute opiate withdrwawal -patient uses 1 to 2 g of fentanyl cart fentanyl daily. Last use was 1 day prior to admission. Patient on buprenorphine based other supportive medications. 2. Pareplegia, neurogenic bladder - BL LE paralysis. On baclofen. 3. Cigarette smoking/nicotine abuse -on nicotine patch 4. Anxiety/depression - duloxetine, trazodone, klonopin DVT ppx: Thankfully I did not get any on Lovenox 40 mg subcu daily DC Planning: compliance program manager consult and 180 referral Inpatient E&M: [id number] Subs Hosp L2
[2020-06-30 14:40] VITALS: BP 111/71; PULSE 92; RESP 18; TEMP 36.7; O2SAT 98
--- NOTE | 2020-06-30 17:24 | CASEMGMT ---
Social Work Note SW received update from RN that pt mentioned APS and that pt will not be able to return home at discharge. SW in to speak with pt. Pt states that the ambulance company told her that an APS report needed to be filed as she wasn't getting good care at home. SW explained that APS reports can be made for adults age 60 and older so pt is too young for APS referral. SW informed pt that Kenneth tried to see pt today but will see pt tomorrow regarding follow up plans. Pt states I need to go to a senior living. SW inquired why pt feels she needs to go to a SNF. Pt states I can't take care of myself. SW informed pt that there has to be a skilled need for pt to admit to SNF, so this worker is not sure if pt qualifies. Pt states I am paraplegic that doesn't qualify me? SW informed pt again that there has to be skilled a need and this worker could send referral to SNF but is not sure pt would qualify. SW informed pt that this worker will update Kenneth tomorrow and will work with Kenneth and pt to develop a discharge plan. Pt states understanding. Pt states that she has been to [facility] before. RN updated. Lakesha Grullon COMPUTER TECHNOLOGY TRAINER, PBX TEACHER
[2020-06-30] MEDS: cloNIDine HCl 0.1 MG Tablet PO (18:06)
[2020-06-30 22:09] VITALS: BP 112/71; PULSE 75; RESP 16; TEMP 36.7; O2SAT 96
[2020-06-30 22:26] VITALS: BP 112/71; PULSE 75; RESP 16; TEMP 36.7; O2SAT 97
[2020-07-01] MEDS: Methocarbamol 750 MG Tablet 1500 MG PO ×3 (03:13→21:41)
[2020-07-01] MEDS: cloNIDine HCl 0.1 MG Tablet PO ×2 (03:13→11:42)
[2020-07-01 03:16] VITALS: BP 121/77; PULSE 66; RESP 16; TEMP 36.6; O2SAT 96
[2020-07-01] MEDS: clonazePAM 0.5 MG Tablet PO ×3 (05:30→21:41)
[2020-07-01] MEDS: Buprenorphine HCl 2 MG TAB.SUBL SL ×3 (05:30→21:41)
[2020-07-01] MEDS: Acetaminophen 500 MG Tablet 1000 MG PO ×3 (05:30→21:41)
[2020-07-01 08:37] VITALS: BP 113/71; PULSE 76; RESP 18; TEMP 36.7; O2SAT 98
[2020-07-01] MEDS: Baclofen 10 MG Tablet 30 MG PO ×4 (08:42→21:40)
[2020-07-01] MEDS: Aspirin E.C. 81 MG Tablet PO (08:42)
[2020-07-01] MEDS: Gabapentin 800 MG Tablet PO ×3 (08:42→16:45)
[2020-07-01] MEDS: DULoxetine Hcl 60 MG Capsule 120 MG PO (08:42)
[2020-07-01] MEDS: Enoxaparin 40 MG/0.4 ML Syringe SC (08:43)
[2020-07-01] MEDS: Menthol/Lanolin/Calamine/Znox 113 GM Tube 1 APPLIC TOPICAL ×4 (10:05→21:43)
--- NOTE | 2020-07-01 11:16 | PN_ITS ---
Patient Problems: Active and Suspected Problems Opiate withdrawal (Acute) Reason for Visit: Follow-up for acute withdrawal symptoms Objective: Patient is paraplegic. She does not have a place to go. Symptoms of withdrawal are better controlled She is more awake and alert. Talking coherent. Denies seizure Physical exam General: Alert, Oriented x3, Cooperative HEENT: Atraumatic, PERRLA, EOMI, Normocephalic Oral: No Gingival or Mucosal Lesions/ Ulcerations Neck: Supple, No JVD, Negative Carotid Bruits Lungs: Air entry diminished in bilateral lung bases. No crepitation/rhonchi Cardiovascular: Regular rate, Regular Rhythm, Normal S1, Normal S2, No murmurs Abdomen: Bowel Sounds Present, Soft, Non Tender, Non-Distended. Fecal incontinence : No renal angle tenderness. No suprapubic tenderness. Neurogenic bladder with urinary incontinence Extremities: Mild dependent edema, Capillary Refill Less than 3 Seconds Skin: No rashes, No breakdown Musculoskeletal: Mild contracture at hip and knee joints. Bilateral paraplegia. No weakness and no sensation below/level. No Tenderness to Palpation of Joints or Extremities Neurological: Cranial nerves II-XII grossly intact, Deep Tendon Reflexes 1/4. Psych/Mental Status: Normal Affect, Appropriate. Vitals/I&O's: Vital Signs Temp Pulse Resp BP Pulse Ox 98.0 F 76 18 113/71 98 07/01/20 08:37 07/01/20 08:37 07/01/20 08:37 07/01/20 08:37 07/01/20 08:37 Oxygen Delivery Method Room Air Weight: 175 lb 0.012 oz Body Mass Index (BMI) 23.1 Intake and Output for Last 24 Hours 06/29/20 06/30/20 07/01/20 23:59 23:59 23:59 Intake Total 1000 / 1200 900 / 900 Output Total 2250 / 2250 500 / 500 Balance 1000 / 700 -1350 / -1350 -500 / -500 Current Medications Acetaminophen (Tylenol) 1,000 mg PO Q8 [facility] Last Admin: 07/01/20 05:30 Dose: 1,000 mg Documented by: [facility]) [facility] Last Admin: 07/01/20 08:42 Dose: 81 mg Documented by: Baclofen (Lioresal) [facility] Last Admin: 07/01/20 08:42 Dose: 30 mg Documented by: Buprenorphine HCl (Buprenorphine Hcl) 2 mg SL Q8H [facility]; Taper Stop: 07/02/20 21:29 Last Admin: 07/01/20 05:30 Dose: 2 mg Documented by: Calamine/Phenol (Calmoseptine Ointment) 1 applic TOPICAL 4X/DAY [facility]; Protocol Last Admin: 06/30/20 22:01 Dose: 1 applic Documented by: Clonazepam (Klonopin) 0.5 mg PO TID PRN PRN Reason: ANXIETY Last Admin: 07/01/20 05:30 Dose: 0.5 mg Documented by: Clonidine (Catapres) 0.1 mg PO Q8H PRN PRN PRN Reason: RESTLESSNESS Last Admin: 07/01/20 03:13 Dose: 0.1 mg Documented by: Duloxetine HCl (Cymbalta) 120 mg PO DAILY [facility] Last Admin: 07/01/20 08:42 Dose: 120 mg Documented by: Enoxaparin Sodium (Lovenox) 40 mg SC DAILY [facility] Last Admin: 07/01/20 08:43 Dose: 40 mg Documented by: Gabapentin (Neurontin) 800 mg PO TIDCM [facility] Last Admin: 07/01/20 08:42 Dose: 800 mg Documented by: Loperamide HCl (Imodium) 2 mg PO Q4H PRN PRN PRN Reason: LOOSE STOOLS Methocarbamol (Methocarbamol) 1,500 mg PO Q6H PRN PRN PRN Reason: MUSCLE SPASM Last Admin: 07/01/20 03:13 Dose: 1,500 mg Documented by: Nicotine (Nicoderm Cq (Pbkc)) 21 mg TRANSDERM. DAILY [facility] Last Admin: 07/01/20 08:43 Dose: Not Given Documented by: Nutritional Formula (Lactose Free) (Ensure Enlive) 120 ml PO 4X/DAY [facility] Last Admin: 07/01/20 08:43 Dose: Not Given Documented by: Ondansetron HCl (Zofran) 8 mg PO Q8H PRN PRN PRN Reason: NAUSEA Sodium Chloride () 10 - 40 ml IV UD PRN PRN Reason: SALINE FLUSH Last Admin: 06/30/20 09:39 Dose: 10 ml Documented by: STROKE Vital Signs/Narrative: Vital Signs Temp Pulse Resp BP Pulse Ox 07/01/20 08:37 98.0 F 76 18 113/71 98 Medical Necessity - Tobacco Use Smoking Status: Current every day smoker Tobacco Use: Cigarettes Assessment/Plan All Active Problems Closed displaced transverse fracture of shaft of right femur (Acute) Fracture, ilium closed (Acute) Urinary catheter infection (Acute) UTI (urinary tract infection) (Acute) Opiate withdrawal (Acute) Pressure injury of trochanteric region of right hip, stage 3 (Acute) Skin ulcer of abdominal wall with fat layer exposed (Acute) Cellulitis (Acute) Sepsis (Acute) Blister of right heel with infection (Acute) Abdominal wall cellulitis (Acute) This 39-year-old female with history of IV opioid use, heroin fentanyl, fentanyl was admitted for medical stabilization. 1. Acute opiate withdrwawal -patient uses 1 to 2 g of fentanyl cart fentanyl daily. Last use was 1 day prior to admission. Patient on buprenorphine based other supportive medications. 07/01: Patient is more awake and alert. She does not have place to go after discharge. marketing effectiveness manager notified. 2. Pareplegia, neurogenic bladder - BL LE paralysis. On baclofen. Urinary and fecal incontinence. 3. Cigarette smoking/nicotine abuse -on nicotine patch 4. Anxiety/depression - duloxetine, trazodone, klonopin DVT ppx: on Lovenox 40 mg subcu daily DC Planning: marketing effectiveness manager consult and 180 referral Inpatient E&M: [id number] Subs Hosp L2
[2020-07-01 11:38] VITALS: BP 104/63; PULSE 78; RESP 18; TEMP 36.6; O2SAT 99
[2020-07-01] MEDS: 0.9% Saline Lock 10 ML Syringe IV (11:44)
--- NOTE | 2020-07-01 14:06 | ADDICTION ---
This flex o writer operator met with patient in her room to complete ASAM, MSE and DUDIT assessments and to process discharge planning. Patient has significant health barriers which limit her options for AoD Residential treatment. This flex o writer operator was informed that [facility] Sharepoint Developer is attempting to find placement at a [facility] as she is paraplegic and has limited ability to care for herself as evidenced by declining health and significant barriers including wounds due to self-neglect. She appears appropriate for the 4.0 LOC as evidenced by: Dimension1: Severe Dimension2: Severe Dimension3: Moderate Dimension4: Severe Dimension5: Severe Dimension6: Severe
--- NOTE | 2020-07-01 15:00 | CASEMGMT ---
Social Work Note SW in to speak with pt. Pt agreeable to SNF placement. SW provided pt with list of SNF that accept pt's insurance. Pt states she is fin with returning to [facility]. SW placed a call to Belem at [facility] and provided referral. SW faxed referral to [facility]. Plan: SNF pending acceptance and pre-cert Lakesha Grullon CONE EXAMINER, SODA DRIER FEEDER
[2020-07-01 16:46] LABS: Probe Check PASS; Specimen Processing Control PASS
[2020-07-01 16:47] VITALS: BP 113/71; PULSE 80; RESP 18; TEMP 36.6; O2SAT 98
[2020-07-01 21:39] VITALS: BP 123/79; PULSE 75; RESP 14; TEMP 37.1; O2SAT 98
[2020-07-02 02:03] VITALS: BP 104/58; PULSE 88; RESP 16; TEMP 36.9; O2SAT 97
[2020-07-02] MEDS: cloNIDine HCl 0.1 MG Tablet PO (02:05)
[2020-07-02] MEDS: 0.9% Saline Lock 10 ML Syringe IV (02:07)
[2020-07-02] MEDS: Acetaminophen 500 MG Tablet 1000 MG PO ×3 (05:48→22:37)
[2020-07-02] MEDS: clonazePAM 0.5 MG Tablet PO ×3 (05:48→22:37)
[2020-07-02] MEDS: Methocarbamol 750 MG Tablet 1500 MG PO (07:28)
[2020-07-02 09:31] VITALS: BP 106/60; PULSE 97; RESP 16; TEMP 37; O2SAT 97
[2020-07-02] MEDS: Baclofen 10 MG Tablet 30 MG PO ×4 (09:34→22:37)
[2020-07-02] MEDS: Aspirin E.C. 81 MG Tablet PO (09:34)
[2020-07-02] MEDS: DULoxetine Hcl 60 MG Capsule 120 MG PO (09:35)
[2020-07-02] MEDS: Gabapentin 800 MG Tablet PO ×3 (09:35→17:01)
[2020-07-02] MEDS: Enoxaparin 40 MG/0.4 ML Syringe SC (09:35)
[2020-07-02] MEDS: Menthol/Lanolin/Calamine/Znox 113 GM Tube 1 APPLIC TOPICAL ×4 (09:37→22:38)
[2020-07-02] MEDS: Buprenorphine HCl 2 MG TAB.SUBL SL (09:44)
[2020-07-02] MEDS: tiZANidine HCl 2 MG Tablet 4 MG PO ×2 (09:47→22:37)
[2020-07-02] MEDS: Multivitamins,Therapeutic Tablet 1 TABLET PO (12:23)
--- NOTE | 2020-07-02 12:55 | CASEMGMT ---
Addendum entered by Lynda Lomeli 07/02/20 15:50: Return call from pt sister Liseth and informed of discharge plan. She is understanding and agreeable to d/c plan. BERNARD Salazar Addendum entered by Lynda Lomeli 07/02/20 15:21: Social Work Phone call to [facility] and they are able to accept pt and precert has been started. SW met with pt and she is understanding and agreeable to [facility] at time of d/c. Pt requesting that SW notify pt sister Liseth. Phone call to Liseth, however no identifier on VM. SW requested return call but left no pt information. SW spoke with Rosey from [facility] who states pt will followup with 180 to set up services once she is at [facility]. SW to followup on Sunday for placement. Plan: [facility], pending precert BERNARD Salazar Original Note: Social Work Phone call placed to [facility]. Questions regrading pt care status and plan for opiate withdrawal answered. [facility] states they are uncertain if they can accept pt at this time but will review with staff and let SW know. If pt is accepted, insurance preauth will take 2 days. SW will await return call for determination if they can accept pt. BERNARD Salazar
[2020-07-02 14:03] VITALS: BP 95/62; PULSE 85; RESP 16; TEMP 37; O2SAT 97
--- NOTE | 2020-07-02 14:10 | PN_ITS ---
Patient Problems: Active and Suspected Problems Opiate withdrawal (Acute) Objective: And is more awake, alert and oriented x3. Patient gave a history. speech is coherent. Physical exam General: Alert, Oriented x3, Cooperative HEENT: Atraumatic, PERRLA, EOMI, Normocephalic Oral: No Gingival or Mucosal Lesions/ Ulcerations Neck: Supple, No JVD, Negative Carotid Bruits Lungs: Air entry diminished in bilateral lung bases. No crepitation/rhonchi Cardiovascular: Regular rate, Regular Rhythm, Normal S1, Normal S2, No murmurs Abdomen: Bowel Sounds Present, Soft, Non Tender, Non-Distended. Fecal incontinence : No renal angle tenderness. No suprapubic tenderness. Neurogenic bladder with urinary incontinence. Has suprapubic catheter will be changed today. Extremities: Mild dependent edema, Capillary Refill Less than 3 Seconds Skin: No rashes, No breakdown Musculoskeletal: Mild contracture at hip and knee joints. Bilateral paraplegia. No weakness and no sensation below/level. No Tenderness to Palpation of Joints or Extremities Neurological: Cranial nerves II-XII grossly intact, Deep Tendon Reflexes 1/4. Psych/Mental Status: Normal Affect, Appropriate. Vitals/I&O's: Vital Signs Temp Pulse Resp BP Pulse Ox 98.6 F 85 16 95/62 97 07/02/20 14:03 07/02/20 14:03 07/02/20 14:03 07/02/20 14:03 07/02/20 14:03 Oxygen Delivery Method Room Air Weight: 175 lb 0.012 oz Body Mass Index (BMI) 23.1 Intake and Output for Last 24 Hours 06/30/20 07/01/20 07/02/20 23:59 23:59 23:59 Intake Total 900 / 900 1400 / 1800 800 / 800 Output Total 2250 / 2250 1600 / 2150 1350 / 1350 Balance -1350 / -1350 -200 / -350 -550 / -550 Laboratory Results 07/01/20 15:35: COVID-19 ([facility]) Negative Current Medications Acetaminophen (Tylenol) 1,000 mg PO Q8 [facility] Last Admin: 07/02/20 05:48 Dose: 1,000 mg Documented by: Aspirin (Ecotrin) 81 mg PO DAILYCM [facility] Last Admin: 07/02/20 09:34 Dose: 81 mg Documented by: [facility] ([facility]al) [facility] Last Admin: 07/02/20 12:17 Dose: 30 mg Documented by: Buprenorphine HCl (Buprenorphine Hcl) 2 mg SL Q12H [facility]; Taper Stop: 07/02/20 21:29 Last Admin: 07/02/20 09:44 Dose: 2 mg Documented by: Calamine/Phenol (Calmoseptine Ointment) 1 applic TOPICAL 4X/DAY [facility]; Protocol Last Admin: 07/02/20 09:37 Dose: 1 applic Documented by: Clonazepam (Klonopin) 0.5 mg PO TID PRN PRN Reason: ANXIETY Last Admin: 07/02/20 12:21 Dose: 0.5 mg Documented by: Clonidine (Catapres) 0.1 mg PO Q8H PRN PRN PRN Reason: RESTLESSNESS Last Admin: 07/02/20 02:05 Dose: 0.1 mg Documented by: Duloxetine HCl (Cymbalta) 120 mg PO DAILY [facility] Last Admin: 07/02/20 09:35 Dose: 120 mg Documented by: Enoxaparin Sodium (Lovenox) 40 mg SC DAILY [facility] Last Admin: 07/02/20 09:35 Dose: 40 mg Documented by: Fludrocortisone Acetate (Florinef) 0.1 mg PO DAILY@0800 [facility] Gabapentin (Neurontin) 800 mg PO TIDCM [facility] Last Admin: 07/02/20 12:18 Dose: 800 mg Documented by: Ibuprofen (Motrin) 600 mg PO Q6H PRN PRN PRN Reason: Pain Score 1-10/10 Loperamide HCl (Imodium) 2 mg PO Q4H PRN PRN PRN Reason: LOOSE STOOLS Midodrine (Proamatine) 5 mg PO TID [facility] Multivitamins (Multivitamin) 1 tablet PO DAILY@1200 [facility] Last Admin: 07/02/20 12:23 Dose: 1 tablet Documented by: Nicotine (Nicoderm Cq (Pbkc)) 21 mg TRANSDERM. DAILY [facility] Last Admin: 07/02/20 09:36 Dose: Not Given Documented by: Nutritional Formula (Lactose Free) (Ensure Enlive) 120 ml PO 4X/DAY [facility] Last Admin: 07/02/20 09:36 Dose: Not Given Documented by: Ondansetron HCl (Zofran) 8 mg PO Q8H PRN PRN PRN Reason: NAUSEA Sodium Chloride () 10 - 40 ml IV UD PRN PRN Reason: SALINE FLUSH Last Admin: 07/02/20 02:07 Dose: 10 ml Documented by: Tizanidine HCl (Zanaflex) 4 mg PO BID [facility] Last Admin: 07/02/20 09:47 Dose: 4 mg Documented by: STROKE Vital Signs/Narrative: Vital Signs Temp Pulse Resp BP Pulse Ox 07/02/20 14:03 98.6 F 85 16 95/62 97 Medical Necessity - Tobacco Use Smoking Status: Current every day smoker Tobacco Use: Cigarettes Assessment/Plan All Active Problems Closed displaced transverse fracture of shaft of right femur (Acute) Fracture, ilium closed (Acute) Urinary catheter infection (Acute) UTI (urinary tract infection) (Acute) Opiate withdrawal (Acute) Pressure injury of trochanteric region of right hip, stage 3 (Acute) Skin ulcer of abdominal wall with fat layer exposed (Acute) Cellulitis (Acute) Sepsis (Acute) Blister of right heel with infection (Acute) Abdominal wall cellulitis (Acute) This 39-year-old female with history of IV opioid use, heroin fentanyl, fentanyl was admitted for medical stabilization. 1. Acute opiate withdrwawal -patient uses 1 to 2 g of fentanyl cart fentanyl daily. Last use was 1 day prior to admission. Patient on buprenorphine based other supportive medications. 07/01: Patient is more awake and alert. She does not have place to go after d ischarge. manager payer notified. 2. Pareplegia, neurogenic bladder - BL LE paralysis. On baclofen. Urinary and fecal incontinence. 07/02: Discussed with urologist Dr. Smith. Suprapubic catheter will be changed. She has not seen any urologist recently or under current care of urologist. 3. Cigarette smoking/nicotine abuse -on nicotine patch 4. Anxiety/depression - duloxetine, trazodone, klonopin DVT ppx: on Lovenox 40 mg subcu daily DC Planning: manager payer consult and 180 referral Inpatient E&M: 52776 Subs Hosp L2
[2020-07-02] MEDS: Midodrine HCl 5 MG Tablet PO ×2 (14:12→22:37)
--- NOTE | 2020-07-02 16:56 | CON.PCM_ITS ---
Problem List (1) UTI (urinary tract infection) Status: Acute (2) Neurogenic bladder Status: Chronic Reason for Consult Date of Consultation: 07/02/20 Reason for Consultation: chronic suprapubic tube, urinary retention and ne urogenic bladder History of Present Illness: The patient is a 39 year old F admitted for heroin withdrawal. History of paraplegia following a spinal abscess last year. Not sure what level the abscess was at, but was in cervical spine. She had suprapubic tube placed in December, has not followed up with urologist ( in [place]). Has not been changing the suprapubic tube as often as recommended, it has been over 4 weeks. She changed the last one on her own. She has been having recurrent infections in the urine, not on irrigations or other management, but reports she has not been taken care of well. We discussed the risks of developing urinary tract infections, stones, and even cancers of the bladder with mcc catheters and recurrent infections. I relayed to her the importance of appropriate follow up. She understands. Past Medical History Past Medical History (Chronic Problems): Chronic Problems Tobacco use (Chronic) Chronic hypotension (Chronic) Anxiety and depression (Chronic) Neurogenic bladder (Chronic) Smoker (Chronic) History of intravenous drug abuse (Chronic) Heroin Paraplegia (Chronic) history of left lower tooth abcess (Chronic) Psoriasis (Chronic) Diarrhea (Chronic) Nausea and vomiting (Chronic) Esophageal reflux (Chronic) Allergies Penicillins Adverse Reaction (Verified 06/29/20 15:13) PT UNSURE OF REACTION Home Medications: Ambulatory Orders Medication Instructions Recorded Baclofen 30 mg PO 4X/DAY 10/19/19 Duloxetine HCl 120 mg PO DAILY 10/19/19 Oxybutynin Chloride [Oxybutynin 10 mg PO DAILY 12/24/19 Chloride ER] Fludrocortisone Acetate [Florinef] 0.1 mg PO DAILY@0800 tab 12/30/19 Tizanidine HCl [Zanaflex] 4 mg PO Q8H PRN PRN tab 12/30/19 Clonazepam [Klonopin] 0.5 mg PO TID PRN 05/02/20 Gabapentin [Neurontin] 800 mg PO TIDCM 05/02/20 Midodrine HCl 10 mg PO TID 05/09/20 Multivitamin with Folic Acid 400 mcg PO DAILY 05/09/20 [Thera Tablet] traZODone [Desyrel] 50 mg PO QHS PRN 05/09/20 Acetaminophen [Tylenol] 1,000 mg PO Q8 tab 05/13/20 Aspirin [Aspirin, Baby] 81 mg PO DAILY@0800 06/29/20 Ibuprofen [Motrin] 600 mg PO Q6H PRN PRN 06/29/20 Surgical History: - - Suprapubic catheter placement, debridements to abdominal wall and trochanteric areas secondary to pressure ulcers and nonhealing chronic wounds, prior history spinal abscess with intervention. 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 Paternal History Items: - - Patient denies knowing any of her paternal family history and states she has no relationship nor does she know her father. Review of Systems Constitutional: Denies: Fever Eyes: Denies: Vision Change HEENT: Denies: Difficulty Swallowing Cardiovascular: Denies: Chest Pain Gastrointestinal: Reports: - - does not have sensation in abdomen.. Denies: Abdominal Pain, Constipation Genitourinary: Denies: Hematuria, Incontinence - does not leak from urethra Patient Problems: Active and Suspected Problems Opiate withdrawal (Acute) - Physical Exam Vitals/I&O's: Vital Signs Temp Pulse Resp BP Pulse Ox 98.6 F 85 16 95/62 97 07/02/20 14:03 07/02/20 14:03 07/02/20 14:03 07/02/20 14:03 07/02/20 14:03 Oxygen Delivery Method Room Air Weight: 79.379 kg Body Mass Index (BMI) 23.1 Intake and Output for Last 24 Hours 06/30/20 07/01/20 07/02/20 23:59 23:59 23:59 Intake Total 900 / 900 1400 / 1800 800 / 800 Output Total 2250 / 2250 1600 / 2150 1650 / 1650 Balance -1350 / -1350 -200 / -350 -850 / -850 General: Alert, Oriented x3, Cooperative, No apparent distress HEENT: Atraumatic, Normocephalic Oral: Moist Mucosa Neck: Supple, Trachea Midline Lungs: Normal air movement Abdomen: Soft, Non Tender, Non-Distended, - - old catheter draining cloudy yellow urine Extremities: - - has spasms intermittently Musculoskeletal: Muscle Wasting Current Medications Acetaminophen (Tylenol) 1,000 mg PO Q8 [facility] Last Admin: 07/02/20 14:12 Dose: 1,000 mg Documented by: Aspirin (Ecotrin) 81 mg PO DAILYCM [facility] Last Admin: 07/02/20 09:34 Dose: 81 mg Documented by: [facility]aclof[facility] ([facility]ioresal) [facility] Last Admin: 07/02/20 12:17 Dose: 30 mg Documented by: Buprenorphine HCl (Buprenorphine Hcl) 2 mg SL Q12H [facility]; Taper Stop: 07/02/20 21:29 Last Admin: 07/02/20 09:44 Dose: 2 mg Documented by: Calamine/Phenol (Calmoseptine Ointment) 1 applic TOPICAL 4X/DAY [facility]; Protocol Last Admin: 07/02/20 14:12 Dose: 1 applic Documented by: Clonazepam (Klonopin) 0.5 mg PO TID PRN PRN Reason: ANXIETY Last Admin: 07/02/20 12:21 Dose: 0.5 mg Documented by: Clonidine (Catapres) 0.1 mg PO Q8H PRN PRN PRN Reason: RESTLESSNESS Last Admin: 07/02/20 02:05 Dose: 0.1 mg Documented by: Duloxetine HCl (Cymbalta) 120 mg PO DAILY [facility] Last Admin: 07/02/20 09:35 Dose: 120 mg Documented by: Enoxaparin Sodium (Lovenox) 40 mg SC DAILY [facility] Last Admin: 07/02/20 09:35 Dose: 40 mg Documented by: Fludrocortisone Acetate (Florinef) 0.1 mg PO DAILY@0800 [facility] Gabapentin (Neurontin) 800 mg PO TIDCM [facility] Last Admin: 07/02/20 12:18 Dose: 800 mg Documented by: Ibuprofen (Motrin) 600 mg PO Q6H PRN PRN PRN Reason: Pain Score 1-10/10 Loperamide HCl (Imodium) 2 mg PO Q4H PRN PRN PRN Reason: LOOSE STOOLS Midodrine (Proamatine) 5 mg PO TID [facility] Last Admin: 07/02/20 14:12 Dose: 5 mg Documented by: Multivitamins (Multivitamin) 1 tablet PO DAILY@1200 [facility] Last Admin: 07/02/20 12:23 Dose: 1 tablet Documented by: Nicotine (Nicoderm Cq (Pbkc)) 21 mg TRANSDERM. DAILY [facility] Last Admin: 07/02/20 09:36 Dose: Not Given Documented by: Nutritional Formula (Lactose Free) (Ensure Enlive) 120 ml PO 4X/DAY [facility] Last Admin: 07/02/20 14:14 Dose: Not Given Documented by: Ondansetron HCl (Zofran) 8 mg PO Q8H PRN PRN PRN Reason: NAUSEA Sodium Chloride () 10 - 40 ml IV UD PRN PRN Reason: SALINE FLUSH Last Admin: 07/02/20 02:07 Dose: 10 ml Documented by: Tizanidine HCl (Zanaflex) 4 mg PO BID [facility] Last Admin: 07/02/20 09:47 Dose: 4 mg Documented by: Assessment/Plan All Active Problems Closed displaced transverse fracture of shaft of right femur (Acute) Fracture, ilium closed (Acute) Urinary catheter infection (Acute) UTI (urinary tract infection) (Acute) Opiate withdrawal (Acute) Pressure injury of trochanteric region of right hip, stage 3 (Acute) Skin ulcer of abdominal wall with fat layer exposed (Acute) Cellulitis (Acute) Sepsis (Acute) Blister of right heel with infection (Acute) Abdominal wall cellulitis (Acute) suprapubic tube removed, stoma cleansed with betadine, new 16 Fr snowden inserted, using sterile technique, without difficulty with 10cc in balloon. Patient tolerated the procedure without issue. will need mcc management for her neurogenic bladder and suprapubic tube. she can follow up with in [place], or in [place] with me. Needs to be seen in about 3 months, should have SPT changed every 4 weeks. Thank you for consult.
[2020-07-02 22:16] VITALS: BP 98/53; PULSE 95; RESP 14; TEMP 36.8; O2SAT 96
[2020-07-03 03:28] VITALS: BP 97/64; PULSE 81; RESP 16; TEMP 36.8; O2SAT 98
[2020-07-03] MEDS: Midodrine HCl 5 MG Tablet PO ×3 (05:21→21:33)
[2020-07-03] MEDS: clonazePAM 0.5 MG Tablet PO ×3 (05:21→21:34)
[2020-07-03] MEDS: Acetaminophen 500 MG Tablet 1000 MG PO ×3 (05:21→21:34)
[2020-07-03] MEDS: 0.9% Saline Lock 10 ML Syringe IV (05:21)
[2020-07-03 09:01] VITALS: BP 110/67; PULSE 84; RESP 18; TEMP 36.9; O2SAT 99
[2020-07-03] MEDS: Multivitamins,Therapeutic Tablet 1 TABLET PO (09:12)
[2020-07-03] MEDS: Gabapentin 800 MG Tablet PO ×3 (09:12→17:46)
[2020-07-03] MEDS: cloNIDine HCl 0.1 MG Tablet PO ×2 (09:12→21:33)
[2020-07-03] MEDS: tiZANidine HCl 2 MG Tablet 4 MG PO ×2 (09:13→21:33)
[2020-07-03] MEDS: Aspirin E.C. 81 MG Tablet PO (09:13)
[2020-07-03] MEDS: DULoxetine Hcl 60 MG Capsule 120 MG PO (09:13)
[2020-07-03] MEDS: Enoxaparin 40 MG/0.4 ML Syringe SC (09:13)
[2020-07-03] MEDS: Baclofen 10 MG Tablet 30 MG PO ×4 (09:13→21:33)
[2020-07-03] MEDS: Fludrocortisone Acetate 0.1 MG Tablet PO (09:14)
--- NOTE | 2020-07-03 11:11 | PCM.TXEXTCAR ---
- Diet 06/29/20 19:07 Diet: Regular - General Food consistency:: Regular Liquid Consistency:: Regular/Thin Diet Comments: With snacks three times daily as tolerated - Routine Orders/Code Status Suppository Type: Dulcolax 10mg Suppository Frequency: Daily PRN Code Status: Full Code - Wound(s) R inner thigh Wound Type: scab buttocks Wound Type: Abrasion - Therapies Weight Bearing: Patient is paraplegic Extremity Affected:: Bilateral Lower Physical Therapy: Eval and Treat Occupational Therapy: Eval and Treat Speech Therapy: Eval and Treat - Allergies/Procedures Done in Hospital Allergies/Adverse Reactions: Allergies Penicillins Adverse Reaction (Verified 06/29/20 15:13) PT UNSURE OF REACTION - Type of Care/Length of Stay Estimated LOS: Convalescent Care Less Than 30 days Type of Care Needed: Skilled Rehab Potential: Fair Prognosis: Fair - Additional Orders/Day of Discharge Additional Orders: Patient has suprapubic catheter. Patient also has fecal incontinence, urinary incontinence, neurogenic bladder. Paraplegia. Day of Discharge: 07/03/20 - Dietary and Speech Recommendations Dietitian Recommendations/Changes: Continue Regular diet w/ snacks 3x/day. Will d/c Ensure Enlive w/ medpass--pt refusing. - Follow Up Care Primary Care Physician: Qamar Zimmer MD [Primary Care Provider] - Please follow up with your Primary Care Physician in: In 2 weeks
--- NOTE | 2020-07-03 12:15 | PCM.PN.HOSP ---
Patient Problems: Active and Suspected Problems Opiate withdrawal (Acute) Objective: The patient is awake, alert and oriented x3. Patient gave a history. speech is coherent. Suprapubic catheter was changed Physical exam General: Alert, Oriented x3, Cooperative HEENT: Atraumatic, PERRLA, EOMI, Normocephalic Oral: No Gingival or Mucosal Lesions/ Ulcerations Neck: Supple, No JVD, Negative Carotid Bruits Lungs: Air entry diminished in bilateral lung bases. No crepitation/rhonchi Cardiovascular: Regular rate, Regular Rhythm, Normal S1, Normal S2, No murmurs Abdomen: Bowel Sounds Present, Soft, Non Tender, Non-Distended. Fecal incontinence : No renal angle tenderness. No suprapubic tenderness. Neurogenic bladder with urinary incontinence. Urine is clear and suprapubic catheter. Extremities: Mild dependent edema, Capillary Refill Less than 3 Seconds Skin: No rashes, No breakdown Musculoskeletal: Mild contracture at hip and knee joints. Bilateral paraplegia following cervical spine abscess. No weakness and no sensation below/level. No Tenderness to Palpation of Joints or Extremities Neurological: Cranial nerves II-XII grossly intact, Deep Tendon Reflexes 1/4. Psych/Mental Status: Normal Affect, Appropriate. Vitals/I&O's: Vital Signs Temp Pulse Resp BP Pulse Ox 98.4 F 84 18 110/67 99 07/03/20 09:01 07/03/20 09:01 07/03/20 09:01 07/03/20 09:01 07/03/20 09:01 Oxygen Delivery Method Room Air Weight: 175 lb 0.012 oz Body Mass Index (BMI) 23.1 Intake and Output for Last 24 Hours 07/01/20 07/02/20 07/03/20 23:59 23:59 23:59 Intake Total 1400 / 1800 800 / 1220 540 / 540 Output Total 1600 / 2150 1650 / 2450 1600 / 1600 Balance -200 / -350 -850 / -1230 -1060 / -1060 Current Medications Acetaminophen (Tylenol) 1,000 mg PO Q8 [facility] Last Admin: 07/03/20 05:21 Dose: 1,000 mg Documented by: [facility] Admin: 07/03/20 09:13 Dose: 81 mg Documented by: Baclofen (Lioresal) [facility] Last Admin: 07/03/20 09:13 Dose: 30 mg Documented by: Calamine/Phenol (Calmoseptine Ointment) 1 applic TOPICAL 4X/DAY [facility]; Protocol Last Admin: 07/03/20 09:15 Dose: Not Given Documented by: Clonazepam (Klonopin) 0.5 mg PO TID PRN PRN Reason: ANXIETY Last Admin: 07/03/20 05:21 Dose: 0.5 mg Documented by: Clonidine (Catapres) 0.1 mg PO Q8H PRN PRN PRN Reason: RESTLESSNESS Last Admin: 07/03/20 09:12 Dose: 0.1 mg Documented by: Duloxetine HCl (Cymbalta) 120 mg PO DAILY [facility] Last Admin: 07/03/20 09:13 Dose: 120 mg Documented by: Enoxaparin Sodium (Lovenox) 40 mg SC DAILY [facility] Last Admin: 07/03/20 09:13 Dose: 40 mg Documented by: Fludrocortisone Acetate (Florinef) 0.1 mg PO DAILY@0800 [facility] Last Admin: 07/03/20 09:14 Dose: 0.1 mg Documented by: Gabapentin (Neurontin) 800 mg PO TIDCM [facility] Last Admin: 07/03/20 09:12 Dose: 800 mg Documented by: Ibuprofen (Motrin) 600 mg PO Q6H PRN PRN PRN Reason: Pain Score 1-10/10 Loperamide HCl (Imodium) 2 mg PO Q4H PRN PRN PRN Reason: LOOSE STOOLS Midodrine (Proamatine) 5 mg PO TID [facility] Last Admin: 07/03/20 05:21 Dose: 5 mg Documented by: Multivitamins (Multivitamin) 1 tablet PO DAILY@1200 [facility] Last Admin: 07/03/20 09:12 Dose: 1 tablet Documented by: Nicotine (Nicoderm Cq (Pbkc)) 21 mg TRANSDERM. DAILY [facility] Last Admin: 07/03/20 09:07 Dose: Not Given Documented by: Ondansetron HCl (Zofran) 8 mg PO Q8H PRN PRN PRN Reason: NAUSEA Sodium Chloride () 10 - 40 ml IV UD PRN PRN Reason: SALINE FLUSH Last Admin: 07/03/20 05:21 Dose: 10 ml Documented by: Tizanidine HCl (Zanaflex) 4 mg PO BID [facility] Last Admin: 07/03/20 09:13 Dose: 4 mg Documented by: STROKE Vital Signs/Narrative: Vital Signs Temp Pulse Resp BP Pulse Ox 07/03/20 09:01 98.4 F 84 18 110/67 99 Medical Necessity - Tobacco Use Smoking Status: Current every day smoker Tobacco Use: Cigarettes Assessment/Plan All Active Problems Closed displaced transverse fracture of shaft of right femur (Acute) Fracture, ilium closed (Acute) Urinary catheter infection (Acute) UTI (urinary tract infection) (Acute) Opiate withdrawal (Acute) Pressure injury of trochanteric region of right hip, stage 3 (Acute) Skin ulcer of abdominal wall with fat layer exposed (Acute) Cellulitis (Acute) Sepsis (Acute) Blister of right heel with infection (Acute) Abdominal wall cellulitis (Acute) This 39-year-old female with history of IV opioid use, heroin fentanyl, fentanyl was admitted for medical stabilization. 1. Acute opiate withdrwawal -patient uses 1 to 2 g of fentanyl cart fentanyl daily. Last use was 1 day prior to admission. Patient on buprenorphine based other supportive medications. 07/01: Patient is more awake and alert. She does not have place to go after discharge. manager compliance notified. 07/02: manager compliance working on precertification to go to senior living 2. Pareplegia, neurogenic bladder - BL LE paralysis. On baclofen. Urinary and fecal incontinence. 07/02: Discussed with urologist Dr. Smith. She has seen in [place] in December 2019 and has not followed any urologist since then. Suprapubic catheter was changed on 07/02/2020. Advised to follow-up with urologist either urologist Dr. Smith or urologist Dr. Terrell 3. Cigarette smoking/nicotine abuse -on nicotine patch 4. Anxiety/depression - duloxetine, trazodone, klonopin DVT ppx: on Lovenox 40 mg subcu daily DC Planning: manager compliance consult and 180 referral Inpatient E&M: 57982 Subs Hosp L2
--- NOTE | 2020-07-03 12:18 | PCM.DC.SUM ---
Discharge Date and Diagnosis - Problem List Patient Problems: Active and Suspected Problems Opiate withdrawal (Acute) Date of Admission: 06/29/20 Date of Discharge: 07/03/20 - Primary Discharge Diagnosis Acute Problems: Active Problems Opiate withdrawal (Acute) - Secondary Discharge Diagnosis Chronic Problems: Chronic Problems Tobacco use (Chronic) Chronic hypotension (Chronic) Anxiety and depression (Chronic) Neurogenic bladder (Chronic) Smoker (Chronic) History of intravenous drug abuse (Chronic) Heroin Paraplegia (Chronic) history of left lower tooth abcess (Chronic) Psoriasis (Chronic) Diarrhea (Chronic) Nausea and vomiting (Chronic) Esophageal reflux (Chronic) Hospital Course and Treatment Operations: - - Intramedullary nail right femoral shaft Summary of Care Provided: The patient is a 39 year old F [] Patient Problems: Active and Suspected Problems Opiate withdrawal (Acute) - Physical Exam Vitals/I&O's: Vital Signs Temp Pulse Resp BP Pulse Ox 98.4 F 84 18 110/67 99 07/03/20 09:01 07/03/20 09:01 07/03/20 09:01 07/03/20 09:01 07/03/20 09:01 Oxygen Delivery Method Room Air Weight: 175 lb 0.012 oz Body Mass Index (BMI) 23.1 Intake and Output for Last 24 Hours 07/01/20 07/02/20 07/03/20 23:59 23:59 23:59 Intake Total 1400 / 1800 800 / 1220 540 / 540 Output Total 1600 / 2150 1650 / 2450 1600 / 1600 Balance -200 / -350 -850 / -1230 -1060 / -1060 Current Medications Acetaminophen (Tylenol) 1,000 mg PO Q8 [facility] Last Admin: 07/03/20 05:21 Dose: 1,000 mg Documented by: [facility] Last Admin: 07/03/20 09:13 Dose: 81 mg Documented by: [facility]al) [facility] Last Admin: 07/03/20 09:13 Dose: 30 mg Documented by: Calamine/Phenol (Calmoseptine Ointment) 1 applic TOPICAL 4X/DAY [facility]; Protocol Last Admin: 07/03/20 09:15 Dose: Not Given Documented by: Clonazepam (Klonopin) 0.5 mg PO TID PRN PRN Reason: ANXIETY Last Admin: 07/03/20 05:21 Dose: 0.5 mg Documented by: Clonidine (Catapres) 0.1 mg PO Q8H PRN PRN PRN Reason: RESTLESSNESS Last Admin: 07/03/20 09:12 Dose: 0.1 mg Documented by: Duloxetine HCl (Cymbalta) 120 mg PO DAILY [facility] Last Admin: 07/03/20 09:13 Dose: 120 mg Documented by: Enoxaparin Sodium (Lovenox) 40 mg SC DAILY [facility] Last Admin: 07/03/20 09:13 Dose: 40 mg Documented by: Fludrocortisone Acetate (Florinef) 0.1 mg PO DAILY@0800 [facility] Last Admin: 07/03/20 09:14 Dose: 0.1 mg Documented by: Gabapentin (Neurontin) 800 mg PO TIDCM [facility] Last Admin: 07/03/20 09:12 Dose: 800 mg Documented by: Ibuprofen (Motrin) 600 mg PO Q6H PRN PRN PRN Reason: Pain Score 1-10/10 Loperamide HCl (Imodium) 2 mg PO Q4H PRN PRN PRN Reason: LOOSE STOOLS Midodrine (Proamatine) 5 mg PO TID [facility] Last Admin: 07/03/20 05:21 Dose: 5 mg Documented by: Multivitamins (Multivitamin) 1 tablet PO DAILY@1200 [facility] Last Admin: 07/03/20 09:12 Dose: 1 tablet Documented by: Nicotine (Nicoderm Cq (Pbkc)) 21 mg TRANSDERM. DAILY [facility] Last Admin: 07/03/20 09:07 Dose: Not Given Documented by: Ondansetron HCl (Zofran) 8 mg PO Q8H PRN PRN PRN Reason: NAUSEA Sodium Chloride () 10 - 40 ml IV UD PRN PRN Reason: SALINE FLUSH Last Admin: 07/03/20 05:21 Dose: 10 ml Documented by: Tizanidine HCl (Zanaflex) 4 mg PO BID [facility] Last Admin: 07/03/20 09:13 Dose: 4 mg Documented by: Home Medications: Medications to take at Discharge Baclofen 30 mg PO 4X/DAY 10/19/19 Duloxetine HCl 120 mg PO DAILY 10/19/19 Oxybutynin Chloride [Oxybutynin Chloride ER] 10 mg PO DAILY 12/24/19 Fludrocortisone Acetate [Florinef] 0.1 mg PO DAILY@0800 tab 12/30/19 Tizanidine HCl [Zanaflex] 4 mg PO Q8H PRN PRN tab 12/30/19 Clonazepam [Klonopin] 0.5 mg PO TID PRN 05/02/20 Gabapentin [Neurontin] 800 mg PO TIDCM 05/02/20 Midodrine HCl 10 mg PO TID 05/09/20 Multivitamin with Folic Acid [Thera Tablet] 400 mcg PO DAILY 05/09/20 traZODone [Desyrel] 50 mg PO QHS PRN 05/09/20 Acetaminophen [Tylenol] 1,000 mg PO Q8 tab 05/13/20 Aspirin [Aspirin, Baby] 81 mg PO DAILY@0800 06/29/20 Ibuprofen [Motrin] 600 mg PO Q6H PRN PRN 06/29/20 Nicotine [Nicoderm Cq] 21 mg TRANSDERM. DAILY patch 07/03/20 Primary Care Physician: Qamar Zimmer MD [Primary Care Provider] - Please follow up with your Primary Care Physician in: In 2 weeks Medical Necessity - Tobacco Use Smoking Status: Current every day smoker Tobacco Use: Cigarettes
[2020-07-03] MEDS: Menthol/Lanolin/Calamine/Znox 113 GM Tube 1 APPLIC TOPICAL ×2 (12:19→21:34)
[2020-07-03 15:42] VITALS: BP 110/69; PULSE 94; RESP 16; TEMP 37; O2SAT 97
[2020-07-03 20:00] VITALS: BP 104/61; PULSE 91; RESP 16; TEMP 36.6; O2SAT 98
[2020-07-03] MEDS: traZODone 50 MG Tablet PO (22:27)
[2020-07-04 02:57] VITALS: BP 96/61; PULSE 88; RESP 16; TEMP 36.9; O2SAT 98
[2020-07-04] MEDS: Midodrine HCl 5 MG Tablet PO ×3 (05:28→21:09)
[2020-07-04] MEDS: Acetaminophen 500 MG Tablet 1000 MG PO ×3 (05:28→21:09)
[2020-07-04] MEDS: Aspirin E.C. 81 MG Tablet PO (08:47)
[2020-07-04] MEDS: Gabapentin 800 MG Tablet PO ×3 (08:47→17:11)
[2020-07-04] MEDS: Baclofen 10 MG Tablet 30 MG PO ×4 (08:48→21:09)
[2020-07-04] MEDS: Fludrocortisone Acetate 0.1 MG Tablet PO (08:48)
[2020-07-04] MEDS: DULoxetine Hcl 60 MG Capsule 120 MG PO (08:48)
[2020-07-04] MEDS: tiZANidine HCl 2 MG Tablet 4 MG PO ×2 (08:49→21:10)
[2020-07-04] MEDS: Multivitamins,Therapeutic Tablet 1 TABLET PO (08:49)
[2020-07-04] MEDS: Enoxaparin 40 MG/0.4 ML Syringe SC (08:49)
[2020-07-04 10:16] VITALS: BP 104/74; PULSE 85; RESP 16; TEMP 37; O2SAT 97
[2020-07-04] MEDS: clonazePAM 0.5 MG Tablet PO ×2 (10:19→21:09)
--- NOTE | 2020-07-04 10:52 | PN_ITS ---
Patient Problems: Active and Suspected Problems Opiate withdrawal (Acute) Reason for Visit: Opioid withdrawal. Objective: Patient is on her baseline. Waiting for pre-CERT to go to skilled nursing. Patient gets intermittent twitching and involuntary movements in lower legs. Physical exam General: Alert, Oriented x3, Cooperative HEENT: Atraumatic, PERRLA, EOMI, Normocephalic Oral: No Gingival or Mucosal Lesions/ Ulcerations Neck: Supple, No JVD, Negative Carotid Bruits Lungs: Air entry diminished in bilateral lung bases. No crepitation/rhonchi Cardiovascular: Regular rate, Regular Rhythm, Normal S1, Normal S2, No murmurs Abdomen: Bowel Sounds Present, Soft, Non Tender, Non-Distended. Fecal inc ontinence : No renal angle tenderness. No suprapubic tenderness. Neurogenic bladder with urinary incontinence. Urine is clear and suprapubic catheter. Extremities: Mild dependent edema, Capillary Refill Less than 3 Seconds Skin: No rashes, No breakdown Musculoskeletal: Mild contracture at hip and knee joints. Bilateral paraplegia following cervical spine abscess. No weakness and no sensation below/level. No Tenderness to Palpation of Joints or Extremities Neurological: Cranial nerves II-XII grossly intact, Deep Tendon Reflexes 1/4. Psych/Mental Status: Normal Affect, Appropriate. Vitals/I&O's: Vital Signs Temp Pulse Resp BP Pulse Ox 98.6 F 85 16 104/74 97 07/04/20 10:16 07/04/20 10:16 07/04/20 10:16 07/04/20 10:16 07/04/20 10:16 Oxygen Delivery Method Room Air Weight: 175 lb 0.012 oz Body Mass Index (BMI) 23.1 Intake and Output for Last 24 Hours 07/02/20 07/03/20 07/04/20 23:59 23:59 23:59 Intake Total 800 / 1220 900 / 900 240 / 240 Output Total 1650 / 2450 4100 / 4100 2049 / 2049 Balance -850 / -1230 -3200 / -3200 -1810 / -1810 Current Medications Acetaminophen (Tylenol) 1,000 mg PO Q8 [facility] Last Admin: 07/04/20 05:28 Dose: 1,000 mg Documented by: Aspirin (Ecotrin) 81 mg PO DAILYCM [facility] Last Admin: 07/04/20 08:47 Dose: 81 mg Documented by: [facility] Last Admin: 07/04/20 08:48 Dose: 30 mg Documented by: Calamine/Phenol (Calmoseptine Ointment) 1 applic TOPICAL 4X/DAY [facility]; Protocol Last Admin: 07/04/20 08:50 Dose: Not Given Documented by: Clonazepam (Klonopin) 0.5 mg PO TID PRN PRN Reason: ANXIETY Last Admin: 07/04/20 10:19 Dose: 0.5 mg Documented by: Clonidine (Catapres) 0.1 mg PO Q8H PRN PRN PRN Reason: RESTLESSNESS Last Admin: 07/03/20 21:33 Dose: 0.1 mg Documented by: Duloxetine HCl (Cymbalta) 120 mg PO DAILY [facility] Last Admin: 07/04/20 08:48 Dose: 120 mg Documented by: Enoxaparin Sodium (Lovenox) 40 mg SC DAILY [facility] Last Admin: 07/04/20 08:49 Dose: 40 mg Documented by: Fludrocortisone Acetate (Florinef) 0.1 mg PO DAILY@0800 [facility] Last Admin: 07/04/20 08:48 Dose: 0.1 mg Documented by: Gabapentin (Neurontin) 800 mg PO TIDCM [facility] Last Admin: 07/04/20 08:47 Dose: 800 mg Documented by: Ibuprofen (Motrin) 600 mg PO Q6H PRN PRN PRN Reason: Pain Score 1-10/10 Loperamide HCl (Imodium) 2 mg PO Q4H PRN PRN PRN Reason: LOOSE STOOLS Midodrine (Proamatine) 5 mg PO TID [facility] Last Admin: 07/04/20 05:28 Dose: 5 mg Documented by: Multivitamins (Multivitamin) 1 tablet PO DAILY@1200 [facility] Last Admin: 07/04/20 08:49 Dose: 1 tablet Documented by: Nicotine (Nicoderm Cq (Pbkc)) 21 mg TRANSDERM. DAILY [facility] Last Admin: 07/04/20 08:49 Dose: Not Given Documented by: Ondansetron HCl (Zofran) 8 mg PO Q8H PRN PRN PRN Reason: NAUSEA Sodium Chloride () 10 - 40 ml IV UD PRN PRN Reason: SALINE FLUSH Last Admin: 07/03/20 05:21 Dose: 10 ml Documented by: Tizanidine HCl (Zanaflex) 4 mg PO BID [facility] Last Admin: 07/04/20 08:49 Dose: 4 mg Documented by: Trazodone HCl (Desyrel) 50 mg PO QHS [facility] Last Admin: 07/03/20 22:27 Dose: 50 mg Documented by: STROKE Vital Signs/Narrative: Vital Signs Temp Pulse Resp BP Pulse Ox 07/04/20 10:16 98.6 F 85 16 104/74 97 Medical Necessity - Tobacco Use Smoking Status: Current every day smoker Tobacco Use: Cigarettes Assessment/Plan All Active Problems Closed displaced transverse fracture of shaft of right femur (Acute) Fracture, ilium closed (Acute) Urinary catheter infection (Acute) UTI (urinary tract infection) (Acute) Opiate withdrawal (Acute) Pressure injury of trochanteric region of right hip, stage 3 (Acute) Skin ulcer of abdominal wall with fat layer exposed (Acute) Cellulitis (Acute) Sepsis (Acute) Blister of right heel with infection (Acute) Abdominal wall cellulitis (Acute) This 39-year-old female with history of IV opioid use, heroin fentanyl, fentanyl was admitted for medical stabilization. 1. Acute opiate withdrwawal -patient uses 1 to 2 g of fentanyl cart fentanyl daily. Last use was 1 day prior to admission. Patient on buprenorphine based other supportive medications. 07/01: Patient is more awake and alert. She does not have place to go after discharge. owner manager notified. 07/02: owner manager working on precertification to go to skilled nursing 07/03: Pre-CERT pending. 2. Pareplegia, neurogenic bladder - BL LE paralysis. On baclofen. Urinary and fecal incontinence. 07/02: Discussed with urologist Dr. Smith. She has seen in [place] in December 2019 and has not followed any urologist since then. Suprapubic catheter was changed on 07/02/2020. Advised to follow-up with urologist either urologist Dr. Smith or urologist Dr. Terrell 3. Cigarette smoking/nicotine abuse -on nicotine patch 4. Anxiety/depression - duloxetine, trazodone, klonopin DVT ppx: on Lovenox 40 mg subcu daily DC Planning: Pre-CERT possible tomorrow and then discharged to SNF. Inpatient E&M: 62845 Subs Hosp L2
[2020-07-04] MEDS: Menthol/Lanolin/Calamine/Znox 113 GM Tube 1 APPLIC TOPICAL ×2 (14:26→21:10)
[2020-07-04 17:07] VITALS: BP 107/77; PULSE 95; RESP 18; TEMP 37.4; O2SAT 99
[2020-07-04] MEDS: traZODone 50 MG Tablet PO (21:09)
[2020-07-04 21:15] VITALS: BP 99/65; PULSE 104; RESP 18; TEMP 37; O2SAT 98
[2020-07-05 02:40] VITALS: BP 102/71; PULSE 116; RESP 16; TEMP 36.9; O2SAT 99
[2020-07-05] MEDS: Midodrine HCl 5 MG Tablet PO ×2 (05:27→13:47)
[2020-07-05] MEDS: clonazePAM 0.5 MG Tablet PO ×2 (05:27→13:46)
[2020-07-05] MEDS: Acetaminophen 500 MG Tablet 1000 MG PO ×2 (05:27→13:47)
[2020-07-05 08:37] VITALS: BP 116/76; PULSE 86; RESP 18; TEMP 36.7; O2SAT 99
[2020-07-05] MEDS: Enoxaparin 40 MG/0.4 ML Syringe SC (08:40)
[2020-07-05] MEDS: DULoxetine Hcl 60 MG Capsule 120 MG PO (08:41)
[2020-07-05] MEDS: Fludrocortisone Acetate 0.1 MG Tablet PO (08:41)
[2020-07-05] MEDS: Baclofen 10 MG Tablet 30 MG PO ×2 (08:41→12:03)
[2020-07-05] MEDS: Gabapentin 800 MG Tablet PO ×2 (08:41→12:03)
[2020-07-05] MEDS: tiZANidine HCl 2 MG Tablet 4 MG PO (08:41)
[2020-07-05] MEDS: Aspirin E.C. 81 MG Tablet PO (08:42)
[2020-07-05] MEDS: Menthol/Lanolin/Calamine/Znox 113 GM Tube 1 APPLIC TOPICAL ×2 (08:42→13:47)
[2020-07-05] MEDS: Multivitamins,Therapeutic Tablet 1 TABLET PO (08:42)
--- NOTE | 2020-07-05 09:25 | CASEMGMT ---
Addendum entered by Lakesha Grullon 07/05/20 12:53: SW received message from [place] at [facility] stating pre-cert has been obtained and pt is able to discharge today. Physician updated. TEODORO faxed completed discharge paperwork to [facility] including transfer to extended care facility, signed medication list, any scripts, negative COVID results and COVID screening tool. Original in SNF folder and copy on pt's chart. TEODORO completed [facility] in [facility]. Original in SNF folder and copy on pt's chart. TEODORO placed a call to [facility] and arranged transportation via wheelchair van for 2:00pm. Transportation form completed and placed on SNF folder and copy on pt's chart. TEODORO updated RN on transportation time. SW updated Pt on transportation time and discharge. TEODORO placed a call to [place] at [facility] and updated her on transportation time. Plan: Discharge to [facility] today skilled with [facility] transporting pt via wheelchair van at 2:00pm BERNARD Suresh Original Note: Social Work Note TEODORO faxed updated clinicals to [facility]. Plan: [facility] pending pre-cert BERNARD Suresh
--- NOTE | 2020-07-05 10:40 | DS.PCM_ITS ---
Discharge Date and Diagnosis - Problem List Patient Problems: Active and Suspected Problems Opiate withdrawal (Acute) Date of Admission: 06/29/20 Date of Discharge: 07/05/20 - Primary Discharge Diagnosis Acute Problems: Active Problems Opiate withdrawal (Acute) Nicotine dependence - Secondary Discharge Diagnosis Chronic Problems: Chronic Problems Tobacco use (Chronic) Chronic hypotension (Chronic) Anxiety and depression (Chronic) Neurogenic bladder (Chronic) Smoker (Chronic) History of intravenous drug abuse (Chronic) Heroin Paraplegia (Chronic) history of left lower tooth abcess (Chronic) Psoriasis (Chronic) Diarrhea (Chronic) Nausea and vomiting (Chronic) Esophageal reflux (Chronic) Hospital Course and Treatment Imaging Results: Clinical Impression(s) from Imaging Studies Chest X-Ray 06/29/20 16:00 IMPRESSION: No acute cardiopulmonary pathology Electronically Signed: Qamar Causey MD at 16:33 EDT , Service support , Operations: None, - - Intramedullary nail right femoral shaft Procedures: None Summary of Care Provided: The patient is a 39 year old F with past medical history of paraplegia with neurogenic bladder status post cervical spinal abscess, polysubstance use comes in for medical stabilization from heroin/fentanyl/carfentanyl. She uses about 1 to 2 g/day.. Patient admits to snorting heroin. [facility] and started on the buprenorphine taper. Patient apparently has not had any urology follow-up for her suprapubic catheter since December of this year. She last changed a suprapubic catheter more than 4 weeks prior to admission. Suprapubic catheter was replaced. Patient continued to remain stable. She was discharged to a care home facility. Patient Problems: Active and Suspected Problems Opiate withdrawal (Acute) Subjective: On the day of discharge, patient was seen and examined. She denied any new complaints. - Physical Exam Vitals/I&O's: Vital Signs Temp Pulse Resp BP Pulse Ox 98.1 F 86 18 116/76 99 07/05/20 08:37 07/05/20 08:37 07/05/20 08:37 07/05/20 08:37 07/05/20 08:37 Oxygen Delivery Method Room Air Weight: 79.379 kg Body Mass Index (BMI) 23.1 Intake and Output for Last 24 Hours 07/03/20 07/04/20 07/05/20 23:59 23:59 23:59 Intake Total 900 / 900 480 / 480 950 / 950 Output Total 4100 / 4100 2975 / 2975 1050 / 1050 Balance -3200 / -3200 -2495 / -2495 -100 / -100 General: Alert, Oriented x3, Cooperative, No apparent distress HEENT: Atraumatic, PERRLA, EOMI, Normocephalic Neck: Supple Lungs: Clear to auscultation, Normal air movement Cardiovascular: Regular rate, Regular Rhythm, Normal S1, Normal S2 Abdomen: Bowel Sounds Present, Soft, Non Tender, Non-Distended, No Hepato- splenomegaly Extremities: No edema Skin: No rashes, No breakdown Musculoskeletal: No Tenderness to Palpation of Joints or Extremities Lymphatic: No Cervical, Supraclavicular, or Inguinal Adenopathy Neurological: - - Paraplegic, occasional involuntary jerking of the lower extremities, mild contractures at the hip and knee, no sensation in the lower legs Psych/Mental Status: Normal Affect, Appropriate Current Medications Acetaminophen (Tylenol) 1,000 mg PO Q8 [facility] Last Admin: 07/05/20 05:27 Dose: 1,000 mg Documented by: [facility] Last Admin: 07/05/20 08:42 Dose: 81 mg Documented by: B[facility] ([facility]resal) [facility] Last Admin: 07/05/20 08:41 Dose: 30 mg Documented by: Calamine/Phenol (Calmoseptine Ointment) 1 applic TOPICAL 4X/DAY [facility]; Protocol Last Admin: 07/05/20 08:42 Dose: 1 applic Documented by: Clonazepam (Klonopin) 0.5 mg PO TID PRN PRN Reason: ANXIETY Last Admin: 07/05/20 05:27 Dose: 0.5 mg Documented by: Clonidine (Catapres) 0.1 mg PO Q8H PRN PRN PRN Reason: RESTLESSNESS Last Admin: 07/03/20 21:33 Dose: 0.1 mg Documented by: Duloxetine HCl (Cymbalta) 120 mg PO DAILY [facility] Last Admin: 07/05/20 08:41 Dose: 120 mg Documented by: Enoxaparin Sodium (Lovenox) 40 mg SC DAILY [facility] Last Admin: 07/05/20 08:40 Dose: 40 mg Documented by: Fludrocortisone Acetate (Florinef) 0.1 mg PO DAILY@0800 [facility] Last Admin: 07/05/20 08:41 Dose: 0.1 mg Documented by: Gabapentin (Neurontin) 800 mg PO TIDCM [facility] Last Admin: 07/05/20 08:41 Dose: 800 mg Documented by: Ibuprofen (Motrin) 600 mg PO Q6H PRN PRN PRN Reason: Pain Score 1-10/10 Loperamide HCl (Imodium) 2 mg PO Q4H PRN PRN PRN Reason: LOOSE STOOLS Midodrine (Proamatine) 5 mg PO TID [facility] Last Admin: 07/05/20 05:27 Dose: 5 mg Documented by: Multivitamins (Multivitamin) 1 tablet PO DAILY@1200 [facility] Last Admin: 07/05/20 08:42 Dose: 1 tablet Documented by: Nicotine (Nicoderm Cq (Pbkc)) 21 mg TRANSDERM. DAILY [facility] Last Admin: 07/05/20 08:39 Dose: Not Given Documented by: Ondansetron HCl (Zofran) 8 mg PO Q8H PRN PRN PRN Reason: NAUSEA Sodium Chloride () 10 - 40 ml IV UD PRN PRN Reason: SALINE FLUSH Last Admin: 07/03/20 05:21 Dose: 10 ml Documented by: Tizanidine HCl (Zanaflex) 4 mg PO BID [facility] Last Admin: 07/05/20 08:41 Dose: 4 mg Documented by: Trazodone HCl (Desyrel) 50 mg PO QHS [facility] Last Admin: 07/04/20 21:09 Dose: 50 mg Documented by: Discharge Diet: No Restrictions Discharge Activity: Return to Normal Activity Home Medications: Medications to take at Discharge Baclofen 30 mg PO 4X/DAY 10/19/19 Duloxetine HCl 120 mg PO DAILY 10/19/19 Oxybutynin Chloride [Oxybutynin Chloride ER] 10 mg PO DAILY 12/24/19 Fludrocortisone Acetate [Florinef] 0.1 mg PO DAILY@0800 tab 12/30/19 Tizanidine HCl [Zanaflex] 4 mg PO Q8H PRN PRN tab 12/30/19 Clonazepam [Klonopin] 0.5 mg PO TID PRN 05/02/20 Gabapentin [Neurontin] 800 mg PO TIDCM 05/02/20 Midodrine HCl 10 mg PO TID 05/09/20 Multivitamin with Folic Acid [Thera Tablet] 400 mcg PO DAILY 05/09/20 traZODone [Desyrel] 50 mg PO QHS PRN 05/09/20 Acetaminophen [Tylenol] 1,000 mg PO Q8 tab 05/13/20 Aspirin [Aspirin, Baby] 81 mg PO DAILY@0800 06/29/20 Ibuprofen [Motrin] 600 mg PO Q6H PRN PRN 06/29/20 Nicotine [Nicoderm Cq] 21 mg TRANSDERM. DAILY patch 07/03/20 Primary Care Physician: Qamar Zimmer MD [Primary Care Provider] - Please follow up with your Primary Care Physician in: In 2 weeks Disposition: Home Minutes spent on discharge:: 40 Patient Condition:: Stable Medical Necessity - Tobacco Use Smoking Status: Current every day smoker Tobacco Use: Cigarettes Meaningful Use Info Meaningful Use Diagnoses (Choose all that apply): None applicable Inpatient E&M: 72242 Disch Hosp
--- NOTE | 2020-07-05 13:26 | NURSING ---
called report to Bianca at [facility] at [phone]. notified of product picker time of 1400.
[2020-07-05 13:49] VITALS: BP 105/74; PULSE 95; RESP 18; TEMP 36.4; O2SAT 99
== END 2020-07-05 14:41 | disposition skilled nursing facility (03) | DRG 773 ==
LOC: ED 16:05 → MS3 18:21
PROVIDERS: Internal Medicine; Admitting Provider Internal Medicine; Emergency Provider Emergency Medicine; PCP Family Medicine; Referring Provider Internal Medicine; Visit Provider Internal Medicine
DX: F11.23 Opioid dependence with withdrawal (principal); F17.210 Nicotine dependence, cigarettes, uncomplicated; G82.20 Paraplegia, unspecified; F32.9 Major depressive disorder, single episode, unspecified; F41.9 Anxiety disorder, unspecified; K21.9 Gastro-esophageal reflux disease without esophagitis; N31.9 Neuromuscular dysfunction of bladder, unspecified; N39.498 Other specified urinary incontinence; Z96.0 Presence of urogenital implants; I45.10 Unspecified right bundle-branch block; L40.9 Psoriasis, unspecified; Z79.899 Other long term (current) drug therapy; Z79.82 Long term (current) use of aspirin; Z87.440 Personal history of urinary (tract) infections; Z86.19 Personal history of other infectious and parasitic diseases
CPT/HCPCS: 71045; 80053; 80307; 80320; 81001; 84703; 85025; 87635; 93005; 97110; 97162; 97166; 97530; 97803; 99285; 99406; J7030; A4216; G0480; J2405; U0003

== ENCOUNTER → 2020-10-26 12:48 | Outpatient (CLI) | payer MEDICAID, SELFPAY ==
[2020-06-29 19:14] VITALS: BMI 23.1
--- NOTE | 2020-10-26 12:50 | ART_ITS ---
Reason For Study: pain, dependent rubor Procedure A bilateral lower extremity continuous wave Doppler with analog waveform analysis,segmental pressures,and ankle brachial indexes without exercise. Thigh PVR's not taken. Pt is in a wheelchair due to paralysis from the waist down. Left Segmental Pressures Left brachial= 104mmHg. Left posterior tibial artery = 131mmHg. Left dorsalis pedis artery = 110mmHg. Left digit = 86 mmHg. The left dorsalis pedis waveforms are biphasic. The left posterior tibial artery waveforms are biphasic. Right Segmental Pressures Right brachial= 102mmHg. Right posterior tibial artery = 127mmHg. Right dorsalis pedis artery = 120mmHg. Right digit = 73 mmHg. The right dorsalis pedis waveforms are biphasic. The right posterior tibial artery waveforms are biphasic. Indices The right ankle brachial index by the dorsalis pedis is 1.15. The right ankle brachial index by the posterior tibial artery is 1.22. The right digital-brachial index is .7. The left ankle brachial index by the dorsalis pedis is 1.06. The left ankle brachial index by the posterior tibial artery is 1.26. The left digital-brachial index is .83. Interpretation Summary Biphasic Doppler waveforms are noted at ankle level bilaterally. Pulse-volume recording waveform amplitudes are diminished at ankle and digital level on the left, but satisfactory at all other levels bilaterally. Resting ankle-brachial indices are normal bilaterally. The right digital- brachial index is low-normal. The left digital-brachial index is normal. There appears to be mild arterial occlusive disease at ankle and digital level bilaterally. Clinical correlation is advised. Ordering Physician: Amilcar Mattson Performed By: KESHIA VILLANUEVA Cassandra
== END ==
PROVIDERS: PCP Family Medicine; Referring Provider Family Medicine; Visit Provider Family Medicine
DX: M79.604 Pain in right leg (principal); M79.605 Pain in left leg
CPT/HCPCS: 93923

== ENCOUNTER → 2021-03-14 09:57 | Outpatient (CLI) | payer MEDICAID, SELFPAY ==
[2020-06-29 19:14] VITALS: BMI 23.1
--- NOTE | 2021-03-14 10:00 | VDLE_ITS ---
Reason For Study: PVD, PARAPLEGIA, GREAT TOE CONTUSION. RIGHT LEFT CFV is compressible, spontaneous, phasic, CFV is compressible, spontaneous, phasic, competent and demonstrates normal competent, and demonstrates normal augmentation. augmentation. FV is compressible, spontaneous, phasic, FV is compressible, spontaneous, phasic, competent and demonstrates normal competent and demonstrates normal augmentation. augmentation. POP V is compressible, spontaneous, phasic, POP V is compressible, spontaneous, phasic, competent and demonstrates normal competent and demonstrates normal augmentation. augmentation. T/P Trunk is compressible. T/P Trunk is compressible. PTV is compressible. PTV is compressible. SFJ is competent and measures 0.28 x 0.29 cm. LT PerV is compressible. GSV proximal thigh measures 0.37 x 0.35 cm. SFJ is competent and measures 0.54 x 0.57 GSV at knee measures 0.33 x 0.39 cm. cm. GSV above knee is competent. GSV proximal thigh measures 0.41 x 0.44 cm. GSV below knee is competent. GSV is competent throughout. SSV not assessed due to leg spasms/rigidity. Unable to visualize GSV at knee however BK Procedure measurement is 0.16cm x 0.16cm. This is a venous duplex using B-mode, color Unable to visualize SSV due to leg spasms flow and spectral Doppler. and rigidity. Exam performed in department. The study was technically difficult. Due to leg uncontrollable spasms, contractures, spasicity and tone of legs. VL/Venous Duplex US - Juan Extrem Interpretation Summary Deep veins of the lower extremities are bilaterally patent and compressible seg mentally. There is no evidence of deep vein thrombosis on either side. Valvular competence appears in tact within the proximal deep venous systems bilaterally. The great saphenous veins appear bila terally patent and compressible segmentally. Sapheno-femoral junctions are bilaterally competent . Valvular competence appears to be intact segmentally within the great saphenous veins bilaterally. Small saphenous veins were not visualized bilaterally due to leg spasms and rigidity. Ordering Physician: Lisbeth Resendez Referring Physician: Qamar Zimmer Performed By: Namita Terrell RDCS, RVT
--- NOTE | 2021-03-14 10:00 | ART_ITS ---
Reason For Study: PVD, PARAPLEGIA, GREAT TOE CONTUSION Procedure A bilateral lower extremity continuous wave Doppler with analog waveform analysis,segmental pressures,and ankle brachial indexes without exercise. Left Segmental Pressures Left brachial= 166mmHg. Left posterior tibial artery = 185mmHg. Left dorsalis pedis artery = 189mmHg. Left digit = 160 mmHg. Right Segmental Pressures Right brachial= 166mmHg. Right posterior tibial artery = 181mmHg. Right dorsalis pedis artery = 183mmHg. Right digit = 159 mmHg. Indices The right ankle brachial index by the posterior tibial artery is 1.09. The right ankle brachial index by the dorsalis pedis is 1.10. The right digital-brachial index is 0.96. The left ankle brachial index by the posterior tibial artery is 1.11. The left ankle brachial index by the dorsalis pedis is 1.14. The left digital-brachial index is 0.96. VL/Lower Ext Art Exam w/o Exercis Interpretation Summary Triphasic Doppler waveforms are noted at ankle level bilaterally. Pulse-volume recording waveform amplitudes are diminished at digital level on the left, but satisfactory at all other levels bilaterally. Resting ankle-brachial indices are normal bilaterally. Digital-bra chial indices are normal bilaterally. There is no evidence of significant arterial occlusive disease in the lower ext remities bilaterally. Ordering Physician: Lisbeth Resendez Referring Physician: Meera Kramer Performed By: Namita Terrell RVT, RDCS
== END ==
PROVIDERS: PCP Family Medicine; Referring Provider Podiatrist Foot & Ankle Surgery; Visit Provider Podiatrist Foot & Ankle Surgery
DX: I73.89 Other specified peripheral vascular diseases (principal); S90.112A Contusion of left great toe without damage to nail, initial encounter; G82.20 Paraplegia, unspecified
CPT/HCPCS: 93923; 93970

== ENCOUNTER → 2021-03-22 23:00 | Outpatient (REF) | payer MEDICAID, SELFPAY ==
[2020-06-29 19:14] VITALS: BMI 23.1
[2021-03-23 08:51] LABS: Bacteria 0 SEEN /hpf (None Seen); Mucous, Urine 0 SEEN /hpf (<or=2+); Squamous Epithelial Cells - UA 0 SEEN /hpf (5-10)
[2021-03-23 09:07] LABS: Color, Urine Straw (Yellow); Glucose, Dipstick Normal (Normal); Ketone-Dipstick Negative (Negative); Leukocyte Esterase-Dipstick 500 /ul (Negative); Nitrite-Dipstick Negative (Negative); Occult Blood-Urine 50 /ul (Negative); Protein-Dipstick 15 mg/dl (Negative); Urine Bilirubin Dipstick Negative (Negative); Urine Clarity Sl. Cloudy (Clear); Urine Urobilinogen Normal (Normal)
[2021-03-23 09:19] LABS: Red Blood Cells-Urine 0-5 SEEN /hpf (0-5); White Blood Cells 0-5 SEEN /hpf (0-5)
== END ==
LOC: OLS.SW500 23:00
PROVIDERS: PCP Family Medicine; Referring Provider Family Medicine; Visit Provider Family Medicine
DX: T83.84XA Pain due to genitourinary prosthetic devices, implants and grafts, initial encounter (principal)
CPT/HCPCS: 81001; 87077; 87086; 87088; 87186

== ENCOUNTER → 2021-04-06 05:00 | Outpatient (REF) | payer MEDICAID, SELFPAY ==
[2020-06-29 19:14] VITALS: BMI 23.1
[2021-04-06 08:04] LABS: Absolute Lymphocyte Count 1.79 X10^3/uL (0.83-4.51); Basophil# 0.06 X10^3/uL; Basophil% 0.7 % (0-1); Eosinophils% 2.3 % (0-5); Hematocrit 39.3 % (37-47); Hemoglobin 11.7 g/dL (12.0-15.0); Lymphocyte # 1.79 X10^3/ul (0.83-4.51); Lymphocyte % 20.8 % (19-41); Mean Corp Hgb Conc 29.8 g/dL (32-36); Mean Corpuscular Hgb 23.7 pg (27.0-32.0); Mean Corpuscular Volume 79.6 fL (81-99); Mean Platelet Vol. 10.7 fl (6.2-12.0); Monocyte% 5.8 % (0-10); NRBC Flagged by Analyzer 0 % (0-5); Neutrophil # 6.01 X10^3/uL (2.7-7.7); Neutrophil % 70.1 % (47-70); Platelet Count 275 K/mm3 (150-450); RBC Distribution Width CV 16.1 % (11.6-14.6); RBC Distribution Width SD 45.4 fl (35.1-43.9); Red Blood Count 4.94 M/mm3 (4.2-5.4); White Blood Count 8.6 K/mm3 (4.4-11.0)
[2021-04-06 08:20] LABS: ALB/GLOB Ratio 0.9 RATIO (0.9-2.4); AST(SGOT) 38 U/L (15-37); Alanine Aminotransfer ALT/SGPT 73 U/L (13-56); Albumin, Serum 3.5 g/dL (3.2-5.0); Alkaline Phosphatase 111 U/L (45-117); Anion Gap 6 (5-15); BUN 11 mg/dL (7-18); BUN/Creat Ratio 19.8 RATIO (10-20); Calcium,Total 9.1 mg/dL (8.5-10.1); Chloride 106 mmol/L (98-107); Creatinine, Serum 0.56 mg/dL (0.55-1.02); EST Glomerular Filtration Rate 129 mL/min (>60); Est Glom Filt Rate - Afr Amer 156 mL/min (>60); Globulin 3.8 g/dL (2.2-4.2); Glucose 113 mg/dL (74-106); Potassium 3.9 mmol/L (3.5-5.1); Protein, Total 7.3 g/dL (6.4-8.2); Sodium Level 139 mmol/L (136-145)
== END ==
LOC: OLS.SW500 05:00
PROVIDERS: PCP Family Medicine; Referring Provider Family Medicine; Visit Provider Family Medicine
DX: R53.83 Other fatigue (principal)
CPT/HCPCS: 36415; 80053; 85025

== ENCOUNTER → 2021-05-02 04:30 | Outpatient (REF) | payer MEDICAID, SELFPAY ==
[2020-06-29 19:14] VITALS: BMI 23.1
== END ==
LOC: OLS.SW500 04:30
PROVIDERS: PCP Family Medicine; Visit Provider Family Medicine
DX: N39.0 Urinary tract infection, site not specified (principal); N31.9 Neuromuscular dysfunction of bladder, unspecified
CPT/HCPCS: 87077; 87086; 87088; 87186

== ENCOUNTER → 2021-05-04 05:00 | Outpatient (REF) | payer MEDICAID, SELFPAY ==
[2020-06-29 19:14] VITALS: BMI 23.1
[2021-05-04 07:25] LABS: Absolute Lymphocyte Count 2.05 X10^3/uL (0.83-4.51); Absolute Neutrophil Count 6.5 X10^3/uL (2.0-7.7); Basophil# 0.04 X10^3/uL; Basophil% 0.4 % (0-1); Eosinophil# 0.16 X10^3/uL; Eosinophils% 1.7 % (0-5); Hematocrit 40.6 % (37-47); Hemoglobin 12.2 g/dL (12.0-15.0); Lymphocyte # 2.05 X10^3/ul (0.83-4.51); Lymphocyte % 22.1 % (19-41); Mean Corpuscular Hgb 24.6 pg (27.0-32.0); Mean Corpuscular Volume 81.9 fL (81-99); Mean Platelet Vol. 10.5 fl (6.2-12.0); Monocyte% 5.4 % (0-10); NRBC Flagged by Analyzer 0 % (0-5); Neutrophil # 6.49 X10^3/uL (2.7-7.7); Platelet Count 277 K/mm3 (150-450); RBC Distribution Width SD 50.4 fl (35.1-43.9); Red Blood Count 4.96 M/mm3 (4.2-5.4); White Blood Count 9.3 K/mm3 (4.4-11.0)
[2021-05-04 07:36] LABS: ALB/GLOB Ratio 0.9 RATIO (0.9-2.4); AST(SGOT) 38 U/L (15-37); Alanine Aminotransfer ALT/SGPT 106 U/L (13-56); Albumin, Serum 3.7 g/dL (3.2-5.0); Alkaline Phosphatase 127 U/L (45-117); Anion Gap 3 (5-15); BUN 13 mg/dL (7-18); BUN/Creat Ratio 20.6 RATIO (10-20); Calcium,Total 8.8 mg/dL (8.5-10.1); Chloride 104 mmol/L (98-107); Creatinine, Serum 0.63 mg/dL (0.55-1.02); EST Glomerular Filtration Rate 111 mL/min (>60); Est Glom Filt Rate - Afr Amer 135 mL/min (>60); Glucose 111 mg/dL (74-106); Potassium 3.8 mmol/L (3.5-5.1); Protein, Total 7.7 g/dL (6.4-8.2); Sodium Level 134 mmol/L (136-145)
== END ==
LOC: OLS.SW500 05:00
PROVIDERS: PCP Family Medicine; Referring Provider Family Medicine; Visit Provider Family Medicine
DX: R53.83 Other fatigue (principal)
CPT/HCPCS: 36415; 80053; 85025

== ENCOUNTER 2021-06-16 21:53 | Emergency (ER) | payer MEDICAID, SELFPAY ==
[2021-06-16 21:55] VITALS: BP 78/58; PULSE 72; RESP 16; TEMP 36.7; O2SAT 100; BMI 32.0
[2021-06-16 22:02] VITALS: BP 129/74; PULSE 78; O2SAT 100
--- NOTE | 2021-06-16 22:21 | CM.ED ---
Addendum entered by Pooja Riggins 06/16/21 22:47: TEODORO spoke to Gama Myaa RN who indicated patient could have ride home via squad due to her medical condition. TEODORO updated patient and her friend that their presentation for contract caused confusion. Patient apologized. [place] will arrange transport home for patient. Plan: Transport home for patient. Pooja LUI Original Note: TEODORO Note: Referral Source: cob sawyer Reason: Patient wants contract for EMS to return home TEODORO met with patient. She said that she didn't want to come to the ED due to concerns about getting home. Patient's friend said that she was concerned regarding patient's cath so she called the EMS. Patient said that she has medicaid transport to appointments but it's like a private business.. [employer] and thus they are not available after 5 pm. TEODORO explained that this inspector automatic typewriter will speak to and ditch cleaner regarding her request for transport home. Plan: To be determined Pooja LUI
[2021-06-16 22:24] VITALS: RESP 16
--- NOTE | 2021-06-16 23:04 | EX.ED.DYSGE1 ---
HPI History of Present Illness Chief Complaint: Complaint Informant: patient Onset/Context/Timing Onset: Today Timing: Continuous Quality: Malfunctioning Charles and decreased urine output Location: Current Severity: Unable to quantitate Maximum Severity: Unable to quantitate Worsened by: Nothing Relieved by: Nothing Associated Symptoms Associated Symptoms: No constitutional symptoms. 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 She believes is a problem with the Charles. When she was informed that there was only 41 cc of urine in her bladder she was concerned because she is on Lasix and she states she is drinking plenty of fluids. She denies fever, chills night sweats. She denies abdominal pain. She has no other symptoms or complaints. She does have history of hypotension. She has a complex past medical history. Prior similar symptoms: No Recent Illness/Hospitalization: No [facility] Medical History Paraplegia Spinal abscess Home Medications baclofen 30 mg PO 4X/DAY 10/19/19 [History Last Taken 06/29/20] duloxetine 120 mg PO DAILY 10/19/19 [History Last Taken 06/29/20] oxybutynin chloride 10 mg PO DAILY 12/24/19 [History Last Taken 06/29/20] fludrocortisone 0.1 mg PO DAILY@0800 tab 12/30/19 [Rx Last Taken Unknown] tizanidine 4 mg PO Q8H PRN PRN tab 12/30/19 [Rx Last Taken Unknown] gabapentin 800 mg PO TIDCM 05/02/20 [History Last Taken 06/28/20] midodrine 10 mg PO TID 05/09/20 [History Last Taken 06/29/20] multivitamin with folic acid 400 mcg PO DAILY 05/09/20 [History Last Taken 06/29/20] trazodone 50 mg PO QHS PRN 05/09/20 [History Last Taken Unknown] acetaminophen 1,000 mg PO Q8 tab 05/13/20 [Rx Last Taken 06/29/20] aspirin 81 mg PO DAILY@0800 06/29/20 [History Last Taken 06/29/20] ibuprofen 600 mg PO Q6H PRN PRN 09/08/20 [History Last Taken Unknown] nicotine 21 mg TRANSDERM. DAILY patch 07/03/20 [Rx Last Taken Unknown] clonazepam 0.5 mg PO TID PRN #9 tab 07/05/20 [Rx Last Taken Unknown] Allergy/AdvReac Type Severity Reaction Status Date / Time Penicillins AdvReac PT UNSURE Verified 06/16/21 22:01 OF REACTION Social History (Updated 06/16/21 @ 23:[address] Ignacio Michael MD) household members: none Smoking Status: Current every day smoker tobacco type: cigarettes alcohol intake: current Alcohol type: other substance use type: does not use ROS ROS ED Constitutional Constitutional ED: Denies chills, fever(s), subjective or sweats Eyes Eyes: Denies blurry vision or change in vision ENT ENT ED: Denies rhinorrhea or sore throat Cardiovascular Cardiovascular: Denies chest pain or palpitations Respiratory/Chest Respiratory/Chest: Denies cough, dyspnea, dyspnea on exertion or sputum Gastrointestinal Gastrointestinal: Denies abdominal pain, diarrhea, nausea or vomiting Genitourinary Genitourinary ED: Reports other Details: Patient has an indwelling Charles with decreased urine output Musculoskeletal Musculoskeletal: Denies arthralgias, back pain, myalgias or neck pain Neurologic Neurologic: Denies headache(s) EXAM Physical Exam Const Vital Signs: 06/16/21 21:55 06/16/21 22:02 06/16/21 22:24 Temperature 98.1 F Temperature Source Oral Pulse Rate 72 78 Respiratory Rate 16 16 Blood Pressure 78/58 L 129/74 H Blood Pressure Mean 64 92 Pulse Ox 100 100 Positive well nourished, well developed and obese General Appearance ED: well developed and NAD Nutritional Appearance: obese HEENT Reports TM's clear and moist mucous membranes HEENT Narrative: Head is atraumatic normocephalic. Ears normal. Nares patent. Tympanic Membrane ED: Yes TM's clear Eyes PERRL and EOMs intact bilaterally General Eye ED: Negative for pale conjunctiva Neck no lymphadenopathy, supple and no JVD Chest Wall inspection of chest normal Resp normal respiratory effort and clear to auscultation bilaterally Cardio regular rate, regular rhythm, S1 normal heart sound, S2 normal heart sound and no murmurs GI normal to inspection, nondistended, normoactive bowel sounds, non-tender and non-distended Palpation: soft Narrative: Indwelling Charles. Bladder scan indicates patient only has 41 cc of urine in her bladder. Back/Spine no CVA tenderness Neuro oriented x3 and CN's II-XII intact bilaterally Sensorium / Orientation: alert Sensory Exam: sensory level loss detected Motor Exam: Negative for strength 5/5 throughout Psych mental status grossly normal Skin no rashes or lesions noted and no wounds MDM MDM MDM Narrative Medical decision making narrative: Is only 41 cc of urine in her bladder the issue is not a Charles problem. This may be related to a renal problem. We will obtain a basic metabolic panel to assess electrolytes, CO2 2/anion gap and BUN and creatinine to determine if there is evidence of endorgan injury. If there is then will evaluate. Lab Data Attestation: I reviewed the patient's lab results. Lab results narrative: Basic metabolic panel essentially unremarkable other than slight decrease in potassium at 3.2. BUN and creatinine are normal. Labs: Laboratory Results - last 24 hr 06/16/21 22:33 Sodium 138 Potassium 3.2 L Chloride 105 Carbon Dioxide 29.0 Anion Gap 4 L BUN 12 Creatinine 0.49 L Estim Creat Clear Calc 183.48 Est GFR (MDRD) Af Amer 179 Est GFR (MDRD) Non-Af 148 BUN/Creatinine Ratio 24.3 H Glucose 96 Calcium 8.8 Discharge Plan Triage Chief Complaint: Complaint ED Provider: Ignacio Michael Dx/Rx/DC Orders Clinical Impression: Decreased urine output, Acute hypokalemia Instructions: ED Hypokalemia Prescriptions: No Action baclofen 20 MG tablet 30 mg PO 4X/DAY RF: 0 duloxetine 60 MG capsule,delayed release(DR/EC) 120 mg PO DAILY RF: 0 oxybutynin chloride 10 MG tablet extended release 24hr 10 mg PO DAILY RF: 0 tizanidine 2 MG tablet 4 mg PO Q8H PRN PRN (Reason: Spasms) RF: 0 fludrocortisone 0.1 MG tablet 0.1 mg PO DAILY@0800 RF: 0 gabapentin 100 MG capsule 800 mg PO TIDCM RF: 0 midodrine 10 MG tablet 10 mg PO TID RF: 0 multivitamin with folic acid 400 MCG tablet 400 mcg PO DAILY RF: 0 trazodone 50 MG tablet 50 mg PO QHS PRN (Reason: Sleep) RF: 0 acetaminophen 500 MG tablet 1,000 mg PO Q8 RF: 0 aspirin 81 MG tablet,chewable 81 mg PO DAILY@0800 RF: 0 ibuprofen 600 MG tablet 600 mg PO Q6H PRN PRN (Reason: Pain Score 1-10/10) RF: 0 nicotine 21 MG patch 21 mg TRANSDERM. DAILY RF: 0 clonazepam 0.5 MG tablet 0.5 mg PO TID PRN (Reason: Anxiety) Qty: 9 RF: 0 Primary Care Provider: Qamar Zimmer Referrals: Qamar Zimmer MD [Primary Care Provider] - 1 Week (Recheck potassium level) Activity Restrictions/Additional Instructions: The cause of your decreased urine output is unknown. Your potassium is slightly low. This can be corrected by change in diet. Disposition Disposition: Home, Self Care
[2021-06-16 23:13] LABS: Anion Gap 4 (5-15); BUN 12 mg/dL (7-18); BUN/Creat Ratio 24.3 RATIO (10-20); Calcium,Total 8.8 mg/dL (8.5-10.1); Chloride 105 mmol/L (98-107); Creatinine, Serum 0.49 mg/dL (0.55-1.02); EST Glomerular Filtration Rate 148 mL/min (>60); Est Glom Filt Rate - Afr Amer 179 mL/min (>60); Estimated Creatinine Clearance 183.48 ml/min; Glucose 96 mg/dL (74-106); Potassium 3.2 mmol/L (3.5-5.1); Sodium Level 138 mmol/L (136-145)
[2021-06-17 00:43] VITALS: BP 113/70; PULSE 78; O2SAT 98
[2021-06-17 02:11] VITALS: RESP 16
== END 2021-06-17 03:07 | disposition home or self-care (01) ==
PROVIDERS: Emergency Provider Emergency Medicine; PCP Family Medicine
DX: R39.198 Other difficulties with micturition (principal); E87.6 Hypokalemia; G82.20 Paraplegia, unspecified; Z96.0 Presence of urogenital implants; E66.9 Obesity, unspecified; Z68.32 Body mass index [BMI] 32.0-32.9, adult; F17.210 Nicotine dependence, cigarettes, uncomplicated
CPT/HCPCS: 80048; 99284; A4216

== ENCOUNTER 2021-08-09 05:45 | Emergency (ER) | payer MEDICAID, SELFPAY ==
[2021-08-09 05:47] VITALS: BP 127/100; PULSE 101; RESP 16; TEMP 36.2; O2SAT 97; BMI 31.8
--- NOTE | 2021-08-09 05:56 | EX.ED.SAOD ---
HPI History of Present Illness Chief Complaint: Overdose Narrative Narrative: 40-year-old female presenting with nausea. Apparently she overdosed on an opiate. She states that she thought she was doing cocaine. She does not know what time she did the drugs. She was doing them with her sister. She does not know when her sister came over. She states that her sister just out of senior care and she brought the drugs over. She states her sister thought it was cocaine. EMS was called because they were minimally responsive. Patient received 8 mg of Narcan and is alert and awake talking to me now. She has some mild nausea [facility]SH [facility] Medical History Paraplegia Spinal abscess Home Medications baclofen 30 mg PO 4X/DAY 10/19/19 [History Last Taken 06/29/20] duloxetine 120 mg PO DAILY 10/19/19 [History Last Taken 06/29/20] oxybutynin chloride 10 mg PO DAILY 12/24/19 [History Last Taken 06/29/20] fludrocortisone 0.1 mg PO DAILY@0800 tab 12/30/19 [Rx Last Taken Unknown] tizanidine 4 mg PO Q8H PRN PRN tab 12/30/19 [Rx Last Taken Unknown] gabapentin 800 mg PO 4X/DAY 05/02/20 [History Last Taken 06/28/20] midodrine 10 mg PO TID 05/09/20 [History Last Taken 06/29/20] trazodone 50 mg PO QHS PRN 05/09/20 [History Last Taken Unknown] acetaminophen 1,000 mg PO Q8 tab 05/13/20 [Rx Last Taken 06/29/20] ibuprofen 600 mg PO Q6H PRN PRN 06/29/20 [History Last Taken Unknown] clonazepam 0.5 mg PO TID PRN #9 tab 07/05/20 [Rx Last Taken Unknown] promethazine 25 mg PO Q6H PRN PRN #10 tablet 08/09/21 [Rx Last Taken Unknown] Allergy/AdvReac Type Severity Reaction Status Date / Time Penicillins AdvReac PT UNSURE Verified 08/09/21 05:46 OF REACTION Social History household members: none Smoking Status: Current every day smoker tobacco type: cigarettes alcohol intake: current Alcohol type: other substance use type: does not use ROS ROS ED Constitutional Constitutional ED: Denies chills or fever(s) Eyes Eyes: Denies blurry vision or change in vision ENT ENT ED: Denies rhinorrhea or sore throat Cardiovascular Cardiovascular: Denies chest pain or palpitations Respiratory/Chest Respiratory/Chest: Denies cough, dyspnea or sputum Gastrointestinal Gastrointestinal: Reports nausea and vomiting Musculoskeletal Musculoskeletal: Denies arthralgias or myalgias Integumentary Denies rash Neurologic Neurologic: Denies headache(s) or paresthesias EXAM Physical Exam Const Vital Signs: 08/09/21 05:47 Temperature 97.2 F L Temperature Source Temporal Pulse Rate 101 H Respiratory Rate 16 Blood Pressure 127/100 H Blood Pressure Mean 109 Pulse Ox 97 Oxygen Delivery Method Room Air Positive well nourished General Appearance ED: NAD; Negative for pallor HEENT Reports moist mucous membranes atraumatic Eyes PERRL and EOMs intact bilaterally Resp normal respiratory effort and clear to auscultation bilaterally Cardio regular rate and regular rhythm Neuro oriented x3 Sensorium / Orientation: alert Psych mental status grossly normal Skin General Skin Exam: Negative for pallor MDM MDM MDM Narrative Medical decision making narrative: Patient presenting after overdose. It is presumed to be an opioid because she responded 8 mg of Narcan. She is alert and awake. I will monitor her. I do not believe she needs blood work or imaging at this time. Patient still having nausea after giving Zofran she was given Phenergan and now feels well. I will arrange transport for her to get home. Impression: 1. Opioid overdose 2. Nausea/vomiting Discharge Plan Triage Chief Complaint: Overdose ED Provider: Porter Corley Dx/Rx/DC Orders Instructions: ED Overdose, Opiate Prescriptions: New promethazine 25 mg tablet 25 mg PO Q6H PRN PRN (Reason: Nausea) Qty: 10 RF: 0 No Action baclofen 20 MG tablet 30 mg PO 4X/DAY RF: 0 duloxetine 60 MG capsule,delayed release(DR/EC) 120 mg PO DAILY RF: 0 oxybutynin chloride 10 MG tablet extended release 24hr 10 mg PO DAILY RF: 0 tizanidine 2 MG tablet 4 mg PO Q8H PRN PRN (Reason: Spasms) RF: 0 fludrocortisone 0.1 MG tablet 0.1 mg PO DAILY@0800 RF: 0 gabapentin 100 MG capsule 800 mg PO 4X/DAY RF: 0 midodrine 10 MG tablet 10 mg PO TID RF: 0 trazodone 50 MG tablet 50 mg PO QHS PRN (Reason: Sleep) RF: 0 acetaminophen 500 MG tablet 1,000 mg PO Q8 RF: 0 ibuprofen 600 MG tablet 600 mg PO Q6H PRN PRN (Reason: Pain Score 1-10/10) RF: 0 clonazepam 0.5 MG tablet 0.5 mg PO TID PRN (Reason: Anxiety) Qty: 9 RF: 0 Primary Care Provider: Qamar Zimmer Referrals: Qamar Zimmer MD [Primary Care Provider] - Disposition Disposition: Home, Self Care
[2021-08-09] MEDS: Ondansetron ODT 4 MG Tablet PO (06:08)
[2021-08-09] MEDS: proMETHazine 25 MG/ML Syringe 12.5 MG IM (06:53)
--- NOTE | 2021-08-09 07:11 | NURSING ---
called squad, eta is about 1 plus hours
[2021-08-09 08:37] VITALS: BP 120/84; PULSE 90; RESP 18; O2SAT 98
== END 2021-08-09 08:40 | disposition home or self-care (01) ==
LOC: ED 06:17
PROVIDERS: Emergency Provider Student in an Organized Health Care Education/Training Program; PCP Family Medicine
DX: T40.2X1A Poisoning by other opioids, accidental (unintentional), initial encounter (principal); Y92.9 Unspecified place or not applicable; R11.2 Nausea with vomiting, unspecified; G82.20 Paraplegia, unspecified; Z79.899 Other long term (current) drug therapy; F17.210 Nicotine dependence, cigarettes, uncomplicated
CPT/HCPCS: 96372; 99284

== ENCOUNTER 2022-08-15 10:20 | Inpatient (IN) | payer MEDICAID, SELFPAY ==
[2022-08-15] VITALS (18 sets, daily range): BP systolic 97–119; BP diastolic 61–95; PULSE 82–132; RESP 14–30; TEMP 36.2–37.7; O2SAT 84–98; BMI 29.0; BMI 22.6
--- NOTE | 2022-08-15 10:53 | EKG12_ITS ---
Test Reason : SOB Blood Pressure : / mmHG Vent. Rate : 091 BPM Atrial Rate : 091 BPM P-R Int : 146 ms QRS Dur : 106 ms QT Int : 392 ms P-R-T Axes : 071 102 063 degrees QTc Int : 482 ms Normal sinus rhythm Rightward axis Incomplete right bundle branch block Prolonged QT Poor R wave progression Abnormal ECG Confirmed by LUIS ANGEL RAMOS, TAMMY ([id number]), editor magazine CORRINE DUNCAN ([id number]) on 08/17/2022 10:37:11 AM Referred By: Confirmed By:TAMMY PLASENCIA MD
--- NOTE | 2022-08-15 10:55 | EDS_ITS ---
HPI History of Present Illness Chief Complaint: Diarrhea Informant: patient Onset/Context/Timing Onset: Weeks Narrative Narrative: Patient presents secondary to continued diarrhea as well as shortness of breath. She reportedly was seen at [facility] a month ago and diagnosed with colitis. She was placed on Cipro and Flagyl. Patient states she really noted no improvement in her diarrhea. She also complains of a cough and shortness of breath for several weeks. She called EMS today to be evaluated. She does not believe she had fever. Has not complained of significant abdominal pain. She is a history of paraplegia secondary to a prior spinal abscess. She has a chronic suprapubic catheter. [facility] Medical History Anxiety and depression Esophageal reflux Neurogenic bladder Paraplegia Spinal abscess Home Medications baclofen 20 mg tablet 30 mg PO 4X/DAY muscle spasm 10/19/19 [History Last Taken 06/29/20] duloxetine 60 mg capsule,delayed release 120 mg PO DAILY depression 10/19/19 [History Last Taken 06/29/20] oxybutynin chloride 10 mg tablet,extended release 24 hr 10 mg PO DAILY bladder 12/24/19 [History Last Taken 06/29/20] gabapentin 100 mg capsule 800 mg PO 4X/DAY paraplegia/nerve pain 05/02/20 [History Last Taken 06/28/20] midodrine 10 mg tablet 10 mg PO PRN PRN Hypotension 05/09/20 [History Last Taken 06/29/20] clonazepam 0.5 mg tablet 0.5 mg PO TID PRN Anxiety #9 tabs 07/05/20 [Rx Last Taken Unknown] cilostazol 50 mg tablet 50 mg PO DAILY 08/15/22 [History Last Taken Unknown] meloxicam 15 mg tablet 15 mg PO DAILY 08/15/22 [History Last Taken Unknown] Allergy/AdvReac Type Severity Reaction Status Date / Time Penicillins AdvReac PT UNSURE Verified 08/15/22 10:26 OF REACTION Social History household members: none Smoking Status: Current every day smoker tobacco type: cigarettes alcohol intake: current Alcohol type: other substance use type: does not use ROS ROS ED Constitutional Constitutional ED: Denies chills or fever(s) Eyes Eyes: Denies change in vision or discharge from eye(s) ENT ENT ED: Denies discharge from eye(s), rhinorrhea or sore throat Cardiovascular Cardiovascular: Denies chest pain or palpitations Respiratory/Chest Respiratory/Chest: Reports cough and dyspnea Gastrointestinal Gastrointestinal: Reports diarrhea; Denies nausea or vomiting Genitourinary Genitourinary ED: Reports other Details: Chronic indwelling catheter. Musculoskeletal Musculoskeletal: Denies back pain Integumentary Denies Abrasions or rash Neurologic Neurologic: Reports other Details: History of paraplegia. ; Denies headache(s) Allergic/Immunologic Allergic/Immunologic ED: Denies lip swelling or urticaria EXAM Physical Exam Const Vital Signs: 08/15/22 10:21 08/15/22 10:26 08/15/22 10:34 Temperature 97.2 F L 97.2 F L Temperature Source Temporal Temporal Pulse Rate 87 93 Respiratory Rate 24 H 26 H Respiratory Pattern Blood Pressure 102/73 110/95 H Blood Pressure Mean 82 100 Pulse Ox 94 94 98 Oxygen Delivery Method Nasal Cannula Nasal Cannula Nasal Cannula Oxygen Flow Rate (L/min) 2 2 2 08/15/22 11:43 08/15/22 11:44 08/15/22 11:49 Temperature 97.3 F L Temperature Source Temporal Pulse Rate 82 89 Respiratory Rate 14 19 H Respiratory Pattern Tachypnea Blood Pressure 106/70 Blood Pressure Mean 82 Pulse Ox 97 97 Oxygen Delivery Method Nasal Cannula Nasal Cannula Oxygen Flow Rate (L/min) 2 2 08/15/22 12:17 08/15/22 12:41 08/15/22 14:19 Temperature 97.3 F L 98.1 F Temperature Source Temporal Temporal Pulse Rate 83 89 97 Respiratory Rate 19 H 20 H 22 H Respiratory Pattern Blood Pressure 105/74 108/67 118/92 H Blood Pressure Mean 84 80 100 Pulse Ox 96 96 92 Oxygen Delivery Method Nasal Cannula Nasal Cannula Nasal Cannula Oxygen Flow Rate (L/min) 2 2 4 08/15/22 14:19 Temperature Temperature Source Pulse Rate Respiratory Rate 22 H Respiratory Pattern Blood Pressure Blood Pressure Mean Pulse Ox Oxygen Delivery Method Oxygen Flow Rate (L/min) Positive well nourished and well developed General Appearance ED: well developed HEENT Reports normocephalic and head/scalp atraumatic Eyes PERRL and EOMs intact bilaterally Neck supple Chest Wall inspection of chest normal and palpation of chest normal Resp normal respiratory effort Resp Narrative: Diminished breath sounds bilaterally. Cardio regular rate and regular rhythm GI GI Narrative: Abdomen soft with hypoactive bowel sounds. Palpation: soft Extremity Extremity Narrative: Paraplegia with lower extremity muscle wasting. Neuro oriented x3 Sensorium / Orientation: alert Psych Mood & Affect: anxious Skin Skin Narrative: Ecchymosis noted to the paraspinal thoracic region. MDM MDM MDM Narrative Medical decision making narrative: Patient ordered IV fluids. Lab work obtained along with urinalysis and chest x- ray. Once renal function verified patient sent for CTA of the chest as well as CT abdomen pelvis. Lab Data Attestation: I reviewed the patient's lab results. Labs: Laboratory Results - last 24 hr 08/15/22 08/15/22 08/15/22 11:35 11:35 11:35 WBC Cancelled Corrected WBC Cancelled RBC Cancelled Hgb Cancelled Hct Cancelled MCV Cancelled MCH Cancelled MCHC Cancelled RDW Std Deviation Cancelled RDW Coeff of Domonique Cancelled Plt Count Cancelled MPV Cancelled Immature Gran % (Auto) Cancelled Neut % (Auto) Cancelled Lymph % (Auto) Cancelled Armstrong % (Auto) Cancelled Eos % (Auto) Cancelled Baso % (Auto) Cancelled Absolute Neuts (auto) Cancelled Absolute Lymphs (auto) Cancelled Total Counted Cancelled Neutrophils % (Manual) Cancelled Band Neutrophils % Cancelled Lymphocytes % (Manual) Cancelled Monocytes % (Manual) Cancelled Eosinophils % (Manual) Cancelled Basophils % (Manual) Cancelled Metamyelocytes % Cancelled Myelocytes % Cancelled Promyelocytes % Cancelled Blast Cells % Cancelled Plasma Cell % (Manual) Cancelled Other Cells % Cancelled Nucleated RBC % Cancelled Nucleated RBCs/100 WBC Cancelled Differential Comment Cancelled Diff Path Review Cancelled Hypersegmented Neuts Cancelled Atypical Lymphocytes Cancelled Reactive Lymphocytes Cancelled Smudge Cells Cancelled Toxic Granulation Cancelled Toxic Vacuolation Cancelled Dohle Bodies Cancelled Romie Rods Cancelled Platelet Estimate Cancelled Plt Morphology Comment Cancelled RBC Morphology Cancelled Polychromasia Cancelled Hypochromasia Cancelled Poikilocytosis Cancelled Basophilic Stippling Cancelled Anisocytosis Cancelled Microcytosis Cancelled Macrocytosis Cancelled Spherocytes Cancelled Sickle Cells Cancelled Target Cells Cancelled Tear Drop Cells Cancelled Ovalocytes Cancelled Stomatocytes Cancelled Mel[place] Bodies Cancelled Roby Cells Cancelled Bite Cells Cancelled Crenated Cell Cancelled Acanthocytes (Spur) Cancelled Rouleaux Cancelled Schistocytes Cancelled Sodium 133 L Potassium 3.5 Chloride 103 Carbon Dioxide 19.0 L Anion Gap 11 BUN 13 Creatinine 0.50 L Estim Creat Clear Calc 176.25 Est GFR (MDRD) Af Amer 175 Est GFR (MDRD) Non-Af 145 BUN/Creatinine Ratio 26.1 H Glucose 80 Lactic Acid 0.9 Calcium 8.9 Total Bilirubin 0.70 Direct Bilirubin 0.25 AST 15 ALT 27 Alkaline Phosphatase 150 H Troponin I High Sens 3 Total Protein 8.0 Albumin 3.4 Globulin 4.6 H Urine Color Urine Clarity Urine pH Ur Specific Johnson Urine Protein Urine Glucose (UA) Urine Ketones Urine Occult Blood Urine Nitrite Urine Bilirubin Urine Urobilinogen Ur Leukocyte Esterase Urine RBC Urine WBC Ur Squamous Epith Cells Urine Bacteria Urine Mucus 08/15/22 08/15/22 11:35 12:10 WBC 25.3 H Corrected WBC RBC 5.76 H Hgb 13.0 Hct 44.0 MCV 76.4 L MCH 22.6 L MCHC 29.5 L RDW Std Deviation 45.6 H RDW Coeff of Domonique 17.1 H Plt Count 253 MPV 11.0 Immature Gran % (Auto) Neut % (Auto) Not Reportable Lymph % (Auto) Armstrong % (Auto) Eos % (Auto) Baso % (Auto) Absolute Neuts (auto) 20.5 H Absolute Lymphs (auto) 2.28 Total Counted 100 Neutrophils % (Manual) 81 H Band Neutrophils % Lymphocytes % (Manual) 9 L Monocytes % (Manual) 10 Eosinophils % (Manual) Basophils % (Manual) Metamyelocytes % Myelocytes % Promyelocytes % Blast Cells % Plasma Cell % (Manual) Other Cells % Nucleated RBC % Nucleated RBCs/100 WBC Differential Comment Diff Path Review Hypersegmented Neuts Atypical Lymphocytes Reactive Lymphocytes Smudge Cells Toxic Granulation Toxic Vacuolation Dohle Bodies Romie Rods Platelet Estimate ADEQUATE Plt Morphology Comment RBC Morphology Polychromasia Hypochromasia Poikilocytosis Basophilic Stippling Anisocytosis 1+ Microcytosis 1+ Macrocytosis Spherocytes Sickle Cells Target Cells Tear Drop Cells Ovalocytes Stomatocytes Melgar[place] Bodies [place] Cells Bite Cells Crenated Cell Acanthocytes (Spur) Rouleaux Schistocytes Sodium Potassium Chloride Carbon Dioxide Anion Gap BUN Creatinine Estim Creat Clear Calc Est GFR (MDRD) Af Amer Est GFR (MDRD) Non-Af BUN/Creatinine Ratio Glucose Lactic Acid Calcium Total Bilirubin Direct Bilirubin AST ALT Alkaline Phosphatase Troponin I High Sens Total Protein Albumin Globulin Urine Color Yellow Urine Clarity Sl. Cloudy Urine pH 6.0 Ur Specific Johnson 1.025 Urine Protein 30 H Urine Glucose (UA) Normal Urine Ketones 150 A* Urine Occult Blood 25 H Urine Nitrite Negative Urine Bilirubin Negative Urine Urobilinogen Normal Ur Leukocyte Esterase 100 H Urine RBC 0-5 SEEN Urine WBC 10-25 SEEN Ur Squamous Epith Cells 0-5 SEEN Urine Bacteria 0 SEEN Urine Mucus 0 SEEN Radiography Diagnostic Testing: Clinical Impression(s) from Imaging Studies Chest X-Ray 08/15/22 12:20 IMPRESSION: Right posterior lateral seventh rib fracture near since prior study. Left posterior lateral seventh rib fracture also new since prior study. ACDF extends caudally to the T3 level. Electronically Signed: Jaleel Shea MD, JD at 12:47 EDT , Chest CTA 08/15/22 13:13 IMPRESSION: Normal CTA chest examination, without a demonstrated pulmonary embolism or arterial dissection. Pulmonary fibrosis and lung infiltrates detailed above. Electronically Signed: Jaleel Shea MD, JD at 14:25 EDT , Abdomen/Pelvis CT 08/15/22 13:14 IMPRESSION: Root and thecal material are seen throughout the colon. Status post cholecystectomy. Increased markings at the lung bases. Electronically Signed: Ashish Villatoro MD at 14:13 EDT , Treatment and Re-Evaluation Narrative: White count elevated at 25.3 with 81% neutrophils. Chemistry studies reveal a sodium of 133 and a bicarb of 19. Renal function is normal. Lactic acid is normal at 0.9. LFTs unremarkable. Urinalysis reveals 10-25 white cells with 0 bacteria. No nitrites noted. Stool studies have been sent. Fecal leuks are negative. Remainder of stool studies are still pending. Portable chest x-ray per my interpretation reveals no focal infiltrate. Given patient's hypoxia, CTA of the chest is obtained along with CT scan of the abdomen and pelvis. CTA reveals no evidence of pulmonary embolism. Diffuse groundglass infiltrates are noted. COVID test was obtained on arrival and negative. CT of the abdomen and pelvis reveals fecal material throughout the colon. No bowel wall thickening appreciated. I will speak with hospitalist regarding admission. Discharge Plan Triage Chief Complaint: Diarrhea ED Provider: Rosey Caballero Dx/Rx/DC Orders Clinical Impression: Leukocytosis, Diarrhea, Hypoxia Prescriptions: No Action baclofen 20 MG tablet 30 mg PO 4X/DAY Label Comments: Take 1 tablet by mouth 4 (four) times a day. duloxetine 60 MG capsule,delayed release(DR/EC) 120 mg PO DAILY Label Comments: Take 2 capsules by mouth daily. oxybutynin chloride 10 MG tablet extended release 24hr 10 mg PO DAILY gabapentin 100 MG capsule 800 mg PO 4X/DAY midodrine 10 MG tablet 10 mg PO PRN PRN (Reason: Hypotension) clonazepam 0.5 MG tablet 0.5 mg PO TID PRN (Reason: Anxiety) Qty: 9 0RF cilostazol 50 mg tablet 50 mg PO DAILY Label Comments: Take 1 tablet by mouth twice daily. meloxicam 15 mg tablet 15 mg PO DAILY Label Comments: Take 1 tablet by mouth once daily. With food. Primary Care Provider: Qamar Zimmer Referrals: Qamar Zimmer MD [Primary Care Provider] - Disposition Disposition: Acute Care Hospital [facility]
[2022-08-15] MEDS: 0.9% Normal Saline 1,000 ML 1000 ML IV (11:22)
[2022-08-15] MEDS: Ipratropium/Albuterol Sulfate 3 ML AMPUL.NEB INHALATION ×3 (11:46→23:45)
[2022-08-15 12:09] LABS: AST(SGOT) 15 U/L (15-37); Alanine Aminotransfer ALT/SGPT 27 U/L (13-56); Albumin, Serum 3.4 g/dL (3.2-5.0); Alkaline Phosphatase 150 U/L (45-117); Anion Gap 11 (5-15); BUN 13 mg/dL (7-18); BUN/Creat Ratio 26.1 RATIO (10-20); Bilirubin, Direct 0.25 mg/dL (0.00-0.30); Calcium,Total 8.9 mg/dL (8.5-10.1); Chloride 103 mmol/L (98-107); EST Glomerular Filtration Rate 145 mL/min (>60); Est Glom Filt Rate - Afr Amer 175 mL/min (>60); Estimated Creatinine Clearance 176.25 ml/min; Globulin 4.6 g/dL (2.2-4.2); Glucose 80 mg/dL (74-106); Potassium 3.5 mmol/L (3.5-5.1); Sodium Level 133 mmol/L (136-145); Troponin-I HS 3 pg/mL (3.0-54.0)
[2022-08-15 12:13] LABS: Lactic Acid 0.9 mmol/L (0.4-1.9)
--- NOTE | 2022-08-15 12:20 | RAD_ITS ---
STUDY: X-RAY CHEST REASON FOR EXAM: Female, 42 years old. cough TECHNIQUE: PA or AP COMPARISON: 06/29/2020 FINDINGS: The lungs are clear and expanded. There is no demonstrated pleural abnormality. Normal size heart. Normal mediastinum and rufino. Normal visualized pulmonary arteries. Normal visualized aortic arch and descending thoracic aorta. Right posterolateral seventh rib fracture age indeterminate but new since prior study. Left posterior lateral seventh rib fracture age indeterminate but new since prior study. Status post ACDF extending caudally to the T3 level. There is no demonstrated abnormality of the visualized soft tissue structures of the upper abdomen. RAD/Chest 1 View (Portable) IMPRESSION: Right posterior lateral seventh rib fracture near since prior study. Left posterior lateral seventh rib fracture also new since prior study. ACDF extends caudally to the T3 level. Electronically Signed: Jaleel Shea MD, RENUKA at 12:47 EDT ,
[2022-08-15 12:27] LABS: Mean Corp Hgb Conc 29.5 g/dL (32-36); Mean Corpuscular Hgb 22.6 pg (27.0-32.0); Mean Corpuscular Volume 76.4 fL (81-99); POSITIVE DIFFERENTIAL YES; POSITIVE MORPHOLOGY YES; Platelet Count 253 K/mm3 (150-450); RBC Distribution Width CV 17.1 % (11.6-14.6); RBC Distribution Width SD 45.6 fl (35.1-43.9); Red Blood Count 5.76 M/mm3 (4.2-5.4); White Blood Count 25.3 K/mm3 (4.4-11.0)
[2022-08-15 12:28] LABS: Differential Indicated MANUAL DIFF
[2022-08-15] MEDS: 0.9% Normal Saline 1,000 ML 150 ML IV (12:53)
[2022-08-15 13:07] LABS: Anisocytosis 1+; Lymphocyte 9 % (19-41); Microcytosis 1+; Monocyte 10 % (0-10); Neutrophil-Segmented 81 % (47-70); Platelet Estimate ADEQUATE (ADEQ); Total Cells Counted 100 (MANUAL DIFF)
[2022-08-15 13:08] LABS: Absolute Lymphocyte Count 2.28 X10^3/uL (0.83-4.51); Absolute Neutrophil Count 20.5 X10^3/uL (2.0-7.7)
--- NOTE | 2022-08-15 13:13 | CT_ITS ---
STUDY: CTA CHEST REASON FOR EXAM: Female, 42 years old. sob RADIATION DOSAGE (If Supplied By Facility): CTDIvol = ( 13 ) mGy, DLP = ( 1258.86 ) mGycm TECHNIQUE: The examination was performed with the intravenous administration of IV 100mL Isovue-370. Post-processing of the angiographic images was performed, with multiplanar reformation and 3D reconstruction. Individualized dose optimization techniques were used for this CT. COMPARISON: Chest x-ray 08/15/2022 12:19 PM FINDINGS: Normal enhancement of the main pulmonary artery and right and left pulmonary arteries. Normal enhancement of the bilateral peripheral pulmonary arteries. There is no demonstrated pulmonary embolism. Normal thoracic aorta and visualized great vessels. There is no demonstrated aortic dissection. Normal heart and pericardium. Normal mediastinum. Normal hilar regions. Normal visualized trachea and bronchi. The lungs are well expanded. Mild biapical fibrosis. Small groundglass infiltrates left upper lobe and lingula. Moderate groundglass infiltrate right middle lobe 2 cm transverse by 2.6 cm AP. Opacity anteromedial right middle lobe 0.9 x 1.2 cm. Groundglass infiltrates are seen in the superior segment of the left lower lobe. Opacity anterior medial right middle lobe 1.5 x 1.3 cm. Normal pleura. Normal chest wall structures. Right and left posterior lateral right and left posterior lateral seventh rib fractures are seen both of which are new since the prior study. Given some bony growth seen adjacent to the fracture sites these are likely subacute or chronic. Normal visualized upper abdomen. CT/CTA Chest W/WO Contrast IMPRESSION: Normal CTA chest examination, without a demonstrated pulmonary embolism or arterial dissection. Pulmonary fibrosis and lung infiltrates detailed above. Electronically Signed: Jaleel Shea MD, RENUKA at 14:25 EDT ,
--- NOTE | 2022-08-15 13:14 | CT_ITS ---
STUDY: CT ABDOMEN AND PELVIS WITH CONTRAST REASON FOR EXAM: Female, 42 years old. History of colitis. Diarrhea and body aches. RADIATION DOSAGE (If Supplied By Facility): CTDIvol = ( 13 ) mGy, DLP = ( 1258.86 ) mGycm TECHNIQUE: Transaxial images were obtained from the dome of the diaphragm to the symphysis pubis without oral contrast. IV 100mL Isovue-370 was administered. Sagittal and coronal images were reconstructed. Individualized dose optimization techniques were used for this CT. COMPARISON: Comparison is made with prior study dated 11/24/2019. FINDINGS: Minimal increased markings in the anterior medial aspect of the right middle lobe suggestive of prior atelectasis. Minimal atelectasis at the left lung base. The visualized portions of the heart are within normal limits. Normal liver. The patient is status post cholecystectomy. There is mild splenomegaly. Normal pancreas. Normal bilateral adrenal glands. Normal right kidney. Normal left kidney. Normal visualized stomach. Normal small intestine. Moderate amount of fecal material is seen in the colon. Fluid is seen throughout the colon The appendix is visualized and appears normal. Normal abdominal aorta. Normal inferior vena cava. Normal retroperitoneum. A suprapubic catheter is seen within the bladder. The bladder is empty. Follicles are seen in both ovaries. The patient is status post prior bilateral tubal ligation. Normal abdominal wall. There are degenerative changes of the visualized lumbar spine. CT/Abdomen/Pelvis W IV Cont ONLY IMPRESSION: Root and thecal material are seen throughout the colon. Status post cholecystectomy. Increased markings at the lung bases. Electronically Signed: Ashish Villatoro MD at 14:13 EDT ,
[2022-08-15 14:25] LABS: Bacteria 0 SEEN /hpf (None Seen); Mucous, Urine 0 SEEN /hpf (<or=2+)
[2022-08-15 14:32] LABS: Color, Urine Yellow (Yellow); Glucose, Dipstick Normal (Normal); Leukocyte Esterase-Dipstick 100 /ul (Negative); Nitrite-Dipstick Negative (Negative); Occult Blood-Urine 25 /ul (Negative); Protein-Dipstick 30 mg/dl (Negative); Specific Gravity, Urine 1.025 (1.002-1.030); Urine Bilirubin Dipstick Negative (Negative); Urine Clarity Sl. Cloudy (Clear); Urine Urobilinogen Normal (Normal)
[2022-08-15 14:34] LABS: Ketone-Dipstick 150 mg/dl (Negative)
[2022-08-15 14:40] LABS: Red Blood Cells-Urine 0-5 SEEN /hpf (0-5); Squamous Epithelial Cells - UA 0-5 SEEN /hpf (5-10); White Blood Cells 10-25 SEEN /hpf (0-5)
[2022-08-15] MEDS: Gabapentin 800 MG Tablet PO (15:24)
[2022-08-15] MEDS: Baclofen 10 MG Tablet 30 MG PO ×3 (15:24→22:19)
[2022-08-15] MEDS: clonazePAM 0.5 MG Tablet PO ×2 (15:24→22:19)
--- NOTE | 2022-08-15 17:28 | HP.PCM.HOS_ITS ---
HPI - General General Date of Admission: 08/15/22 HPI Narrative ROGELIO MARRERO, is a 42 F who presents presents to the hospital with diarrhea and shortness of breath. About a month ago she went to an outside hospital and was diagnosed with colitis with started on Cipro and Flagyl but did not have any improvement in her diarrhea. Since then she is continued having soft bowel movements but did not appear to be liquid. In the ER a stool sample was sent for C. difficile and enteric pathogens those results are pending. She does have a leukocytosis and she was found to be hypoxic into the mid 80s requiring 4 L nasal cannula. She does have coarse lung sounds throughout and she states that her great niece had RSV last week. CTA of the chest was done which was negative for PE but did show multiple areas of groundglass opacities and possible infiltrates. [facility] Medical History (Updated 08/15/22 @ 17:[address] Elier Pugh MD) Anxiety and depression Chronic indwelling Charles catheter DVT (deep venous thrombosis) Esophageal reflux Hepatitis Irregular heart beat Kidney stones Neurogenic bladder Paraplegia Spinal abscess Home Medications baclofen 20 mg tablet 30 mg PO 4X/DAY muscle spasm 10/19/19 [History Last Taken 08/15/22] duloxetine 60 mg capsule,delayed release 120 mg PO DAILY depression 10/19/19 [History Last Taken 06/29/20] oxybutynin chloride 10 mg tablet,extended release 24 hr 10 mg PO DAILY bladder 12/24/19 [History Last Taken 06/29/20] gabapentin 100 mg capsule 800 mg PO 4X/DAY paraplegia/nerve pain 05/02/20 [History Last Taken 06/28/20] midodrine 10 mg tablet 10 mg PO PRN PRN Hypotension 05/09/20 [History Last Taken 06/29/20] clonazepam 0.5 mg tablet 0.5 mg PO TID PRN Anxiety #9 tabs 07/05/20 [Rx Last Taken Unknown] cilostazol 50 mg tablet 50 mg PO BID antiplatelet 08/15/22 [History Last Taken 08/15/22] meloxicam 15 mg tablet 15 mg PO DAILY 08/15/22 [History Last Taken Unknown] trazodone 50 mg tablet 50 mg PO QHS PRN Sleep 08/15/22 [History Last Taken Unknown] Allergy/AdvReac Type Severity Reaction Status Date / Time Penicillins AdvReac PT UNSURE Verified 08/15/22 10:26 OF REACTION Family History (Updated 08/15/22 @ 17:[address] Elier Pugh MD) Other Multiple sclerosis Social History household members: none Smoking Status: Current every day smoker tobacco type: cigarettes alcohol intake: current Alcohol type: other substance use type: does not use ROS Constitutional Constitutional: Denies chills, fatigue, fever(s) or malaise Eyes Eyes: Denies blurry vision ENT HEENT: Denies headache(s) or nasal discharge Cardiovascular Cardiovascular: Denies chest pain, dyspnea on exertion or syncope Respiratory/Chest Respiratory/Chest: Reports productive cough and shortness of breath at rest; Denies cough or shortness of breath with exertion Gastrointestinal Gastrointestinal: Reports diarrhea; Denies abdominal pain, constipation, nausea or vomiting Genitourinary Genitourinary: Denies dysuria Neurologic Neurologic: Denies focal weakness, numbness or tremor(s) Psychiatric Psychiatric: Denies anxiety or depression Vital Signs Vital Signs Vital Signs: 08/15/22 10:21 08/15/22 10:26 08/15/22 10:34 Temperature 97.2 F L 97.2 F L Temperature Source Temporal Temporal Pulse Rate 87 93 Respiratory Rate 24 H 26 H Respiratory Pattern Blood Pressure 102/73 110/95 H Blood Pressure Mean 82 100 Pulse Ox 94 94 98 Oxygen Delivery Method Nasal Cannula Nasal Cannula Nasal Cannula Oxygen Flow Rate (L/min) 2 2 2 08/15/22 11:43 08/15/22 11:44 08/15/22 11:49 Temperature 97.3 F L Temperature Source Temporal Pulse Rate 82 89 Respiratory Rate 14 19 H Respiratory Pattern Tachypnea Blood Pressure 106/70 Blood Pressure Mean 82 Pulse Ox 97 97 Oxygen Delivery Method Nasal Cannula Nasal Cannula Oxygen Flow Rate (L/min) 2 2 08/15/22 12:17 08/15/22 12:41 08/15/22 14:19 Temperature 97.3 F L 98.1 F Temperature Source Temporal Temporal Pulse Rate 83 89 97 Respiratory Rate 19 H 20 H 22 H Respiratory Pattern Blood Pressure 105/74 108/67 118/92 H Blood Pressure Mean 84 80 100 Pulse Ox 96 96 92 Oxygen Delivery Method Nasal Cannula Nasal Cannula Nasal Cannula Oxygen Flow Rate (L/min) 2 2 4 08/15/22 14:19 08/15/22 14:17 08/15/22 15:46 Temperature 97.9 F Temperature Source Temporal Pulse Rate 96 Respiratory Rate 22 H 21 H Respiratory Pattern Blood Pressure 119/79 Blood Pressure Mean 92 Pulse Ox 87 91 Oxygen Delivery Method Nasal Cannula Nasal Cannula Oxygen Flow Rate (L/min) 3 4 Weight Weight: 220 lb Body Mass Index (BMI) 29.0 Physical Exam Narrative General: Alert, Oriented x3, Cooperative, No apparent distress HEENT: Atraumatic, PERRLA, EOMI, Normocephalic Oral: Moist Mucosa Neck: Supple, No JVD Lungs: Diminished, Normal air movement, bilateral rhonchi, bilateral wheeze, No rales Cardiovascular: Regular rate, Regular Rhythm, Normal S1, Normal S2, No murmurs Abdomen: Soft, Non Tender, Non-Distended, No Hepato-splenomegaly Extremities: No edema, Capillary Refill Less than 3 Seconds Skin: No rashes, No breakdown Musculoskeletal: No Tenderness to Palpation of Joints or Extremities Neurological: Cranial nerves II-XII grossly intact, she is paraplegic from the waist down upper extremity sensation is normal and she moves her upper extremities Psych/Mental Status: Normal Affect, Appropriate Results Lab / Micro Data Result Diagrams: 08/15/22 11:35 08/15/22 11:35 Labs: Laboratory Results - last 24 hr 08/15/22 11:35: WBC Cancelled, Corrected WBC Cancelled, RBC Cancelled, Hgb Cancelled, Hct Cancelled, MCV Cancelled, MCH Cancelled, MCHC Cancelled, RDW Std Deviation Cancelled, RDW Coeff of Domonique Cancelled, Plt Count Cancelled, MPV Cancelled, Immature Gran % (Auto) Cancelled, Neut % (Auto) Cancelled, Lymph % (Auto) Cancelled, [place] % (Auto) Cancelled, Eos % (Auto) Cancelled, Baso % (Auto) Cancelled, Absolute Neuts (auto) Cancelled, Absolute Lymphs (auto) Cancelled, Total Counted Cancelled, Neutrophils % (Manual) Cancelled, Band Neutrophils % Cancelled, Lymphocytes % (Manual) Cancelled, Monocytes % (Manual) Cancelled, Eosinophils % (Manual) Cancelled, Basophils % (Manual) Cancelled, Metamyelocytes % Cancelled, Myelocytes % Cancelled, Promyelocytes % Cancelled, Blast Cells % Cancelled, Plasma Cell % (Manual) Cancelled, Other Cells % Cancelled, Nucleated RBC % Cancelled, Nucleated RBCs/100 WBC Cancelled, Differential Comment Cancelled, Diff Path Review Cancelled, Hypersegmented Neuts Cancelled, Atypical Lymphocytes Cancelled, Reactive Lymphocytes Cancelled, Smudge Cells Cancelled, Toxic Granulation Cancelled, Toxic Vacuolation Cancelled, Dohle Bodies Cancelled , Romie Rods Cancelled, Platelet Estimate Cancelled, Plt Morphology Comment Cancelled, RBC Morphology Cancelled, Polychromasia Cancelled, Hypochromasia Cancelled, Poikilocytosis Cancelled, Basophilic Stippling Cancelled, Anisocytosis Cancelled, Microcytosis Cancelled, Macrocytosis Cancelled, Spherocy domingo Cancelled, Sickle Cells Cancelled, Target Cells Cancelled, Tear Drop Cells Cancelled, Ovalocytes Cancelled, Stomatocytes Cancelled, Melgar-[place] Bodies Cancelled, [place] Cells Cancelled, Bite Cells Cancelled, Crenated Cell Cancelled, Acanthocytes (Spur) Cancelled, Rouleaux Cancelled, Schistocytes Cancelled 08/15/22 11:35: Sodium 133 L, Potassium 3.5, Chloride 103, Carbon Dioxide 19.0 L , Anion Gap 11, BUN 13, Creatinine 0.50 L, Estim Creat Clear Calc 176.25, Est GFR (MDRD) Af Amer 175, Est GFR (MDRD) Non-Af 145, BUN/Creatinine Ratio 26.1 H, Glucose 80, Calcium 8.9, Total Bilirubin 0.70, Direct Bilirubin 0.25, AST 15, ALT 27, Alkaline Phosphatase 150 H, Troponin I High Sens 3, Total Protein 8.0, Albumin 3.4, Globulin 4.6 H 08/15/22 11:35: Lactic Acid 0.9 08/15/22 11:35: WBC 25.3 H, RBC 5.76 H, Hgb 13.0, Hct 44.0, MCV 76.4 L, MCH 22.6 L, MCHC 29.5 L, RDW Std Deviation 45.6 H, RDW Coeff of Domonique 17.1 H, Plt Count 253, MPV 11.0, Neut % (Auto) Not Reportable, Absolute Neuts (auto) 20.5 H, Absolute Lymphs (auto) 2.28, Total Counted 100, Neutrophils % (Manual) 81 H, Lymphocytes % (Manual) 9 L, Monocytes % (Manual) 10, Platelet Estimate ADEQUATE, Anisocytosis 1+, Microcytosis 1+ 08/15/22 12:10: Urine Color Yellow, Urine Clarity Sl. Cloudy, Urine pH 6.0, Ur Specific [place] 1.025, Urine Protein 30 H, Urine Glucose (UA) Normal, Urine Ketones 150 A*, Urine Occult Blood 25 H, Urine Nitrite Negative, Urine Bilirubin Negative, Urine Urobilinogen Normal, Ur Leukocyte Esterase 100 H, Urine RBC 0-5 SEEN, Urine WBC 10-25 SEEN, Ur Squamous Epith Cells 0-5 SEEN, Urine Bacteria 0 SEEN, Urine Mucus 0 SEEN Micro: Microbiology 08/15/22 13:35 Stool Stool Lactoferrin - Final 08/15/22 11:15 Nasal Secretion SARS-CoV-2 Antigen (Rapid) - Final Radiology Impression Chest X-Ray 08/15/22 12:20 IMPRESSION: Right posterior lateral seventh rib fracture near since prior study. Left posterior lateral seventh rib fracture also new since prior study. ACDF extends caudally to the T3 level. Electronically Signed: Jaleel Shea MD, RENUKA at 12:47 EDT , Chest CTA 08/15/22 13:13 IMPRESSION: Normal CTA chest examination, without a demonstrated pulmonary embolism or arterial dissection. Pulmonary fibrosis and lung infiltrates detailed above. Electronically Signed: Jaleel Shea MD, JD at 14:25 EDT , Abdomen/Pelvis CT 08/15/22 13:14 IMPRESSION: Root and thecal material are seen throughout the colon. Status post cholecystectomy. Increased markings at the lung bases. Electronically Signed: Ashish Villatoro MD at 14:13 EDT , Assessment & Plan Assessment/Plan (1) Diarrhea: (2) Acute respiratory failure with hypoxia: PLAN: Plan 1. Acute hypoxic respiratory failure secondary to viral versus bacterial pneumonia/diarrhea ? She does have exposure to RSV recently with her great niece ? We will send off a respiratory panel and in the meantime we will cover her for any bacterial superinfection with Rocephin and azithromycin ? White count is 25,000, will continue to monitor ? We will place her on DuoNebs ? Sputum cultures pending ? Stool cultures are pending, patient reports from nursing it does not appear to be significantly liquid and is mostly just soft stools 2. 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 We will continue with her home medications including baclofen, cilostazol, gabapentin, and oxybutynin ? Will also continue with her midodrine secondary to hypotension from her cervical spine issues 3. Anxiety/depression ? Stable ? Continue with her home medications DVT: Lovenox Charges/Coding Visit Charges Inpatient E&M: 79458 Init Hosp L2
[2022-08-15] MEDS: 0.9% Saline Lock 10 ML Syringe IV (18:28)
[2022-08-15] MEDS: Ceftriaxone 1 GM/50 ML BAG IV (18:31)
[2022-08-15] MEDS: Ketorolac 15 MG/ML Vial IV (18:34)
[2022-08-15] MEDS: Gabapentin 400 MG Capsule 800 MG PO ×2 (18:34→22:19)
[2022-08-15] MEDS: Cilostazol 50 MG Tablet PO (22:19)
[2022-08-15] MEDS: Acetaminophen 325 MG Tablet 650 MG PO (23:50)
[2022-08-16] VITALS (30 sets, daily range): BP systolic 86–135; BP diastolic 51–123; PULSE 81–132; RESP 11–26; TEMP 36.8–37.6; O2SAT 91–99
[2022-08-16] MEDS: Ketorolac 15 MG/ML Vial IV ×2 (01:39→14:44)
[2022-08-16 07:08] LABS: Absolute Lymphocyte Count 0.89 X10^3/uL (0.83-4.51); Absolute Neutrophil Count 20.1 X10^3/uL (2.0-7.7); Basophil# 0.06 X10^3/uL; Basophil% 0.3 % (0-1); Eosinophil# 0.01 X10^3/uL; Hematocrit 38.7 % (37-47); Hemoglobin 11.8 g/dL (12.0-15.0); Lymphocyte # 0.89 X10^3/ul (0.83-4.51); Mean Corp Hgb Conc 30.5 g/dL (32-36); Mean Corpuscular Hgb 22.9 pg (27.0-32.0); Mean Corpuscular Volume 75.1 fL (81-99); Mean Platelet Vol. 10.5 fl (6.2-12.0); Monocyte% 3.6 % (0-10); NRBC Flagged by Analyzer 0 % (0-5); Neutrophil # 20.14 X10^3/uL (2.7-7.7); Neutrophil % 91.4 % (47-70); POSITIVE DIFFERENTIAL YES; Platelet Count 211 K/mm3 (150-450); RBC Distribution Width CV 16.9 % (11.6-14.6); RBC Distribution Width SD 45.1 fl (35.1-43.9); Red Blood Count 5.15 M/mm3 (4.2-5.4); White Blood Count 22.1 K/mm3 (4.4-11.0)
[2022-08-16 07:10] LABS: Differential Indicated SCAN CRITERIA MET
[2022-08-16 07:32] LABS: Differential Comment SCANNED
[2022-08-16 07:38] LABS: Anion Gap 7 (5-15); BUN 10 mg/dL (7-18); BUN/Creat Ratio 20.9 RATIO (10-20); Calcium,Total 8.6 mg/dL (8.5-10.1); Chloride 106 mmol/L (98-107); Creatinine, Serum 0.48 mg/dL (0.55-1.02); EST Glomerular Filtration Rate 152 mL/min (>60); Est Glom Filt Rate - Afr Amer 184 mL/min (>60); Estimated Creatinine Clearance 183.59 ml/min; Glucose 96 mg/dL (74-106); Potassium 3.5 mmol/L (3.5-5.1); Sodium Level 137 mmol/L (136-145)
--- NOTE | 2022-08-16 07:42 | PN.HOSP_ITS ---
Subjective Subjective Follow-up on acute hypoxic respiratory failure/RSV pneumonia: Patient was seen and examined. Overnight, she is on Airvo. She also admits to having lots of diarrhea. Denied any fever or chills. Objective Data Objective Data Vital Signs: Vital Signs Temp Pulse Resp BP Pulse Ox O2 Del Method O2 Flow Rate 99.6 F H 116 H 20 H 110/74 97 Airvo 50 08/16/22 06:44 08/16/22 06:44 08/16/22 06:44 08/16/22 06:44 08/16/22 06:44 08/16/22 06:44 08/16/22 06:44 FiO2 79 08/16/22 06:44 Oxygen Flow Rate (L/min) 50 Oxygen Delivery Method Airvo Weight: 78.018 kg Body Mass Index (BMI) 22.6 Intake & Output: Intake and Output for Last 24 Hours 08/14/22 08/15/22 08/16/22 23:59 23:59 23:59 Intake Total 2140 / 2140 Output Total 700 / 700 350 / 350 Balance 1440 / 1440 -350 / -350 Lab / Micro Data Result Diagrams: 08/16/22 06:30 08/16/22 06:30 Labs: Laboratory Results - last 24 hr 08/15/22 11:35: WBC Cancelled, Corrected WBC Cancelled, RBC Cancelled, Hgb Cancelled, Hct Cancelled, MCV Cancelled, MCH Cancelled, MCHC Cancelled, RDW Std Deviation Cancelled, RDW Coeff of Domonique Cancelled, Plt Count Cancelled, MPV Cancelled, Immature Gran % (Auto) Cancelled, Neut % (Auto) Cancelled, Lymph % (Auto) Cancelled, Elbert % (Auto) Cancelled, Eos % (Auto) Cancelled, Baso % (Auto) Cancelled, Absolute Neuts (auto) Cancelled, Absolute Lymphs (auto) Cancelled, Total Counted Cancelled, Neutrophils % (Manual) Cancelled, Band Neutrophils % Cancelled, Lymphocytes % (Manual) Cancelled, Monocytes % (Manual) Cancelled, Eosinophils % (Manual) Cancelled, Basophils % (Manual) Cancelled, Metamyelocytes % Cancelled, Myelocytes % Cancelled, Promyelocytes % Cancelled, Blast Cells % Cancelled, Plasma Cell % (Manual) Cancelled, Other Cells % Cancelled, Nucleated RBC % Cancelled, Nucleated RBCs/100 WBC Cancelled, Differential Comment Cancelled, Diff Path Review Cancelled, Hypersegmented Neuts Cancelled, Atypical Lymphocytes Cancelled, Reactive Lymphocytes Cancelled, Smudge Cells Cancelled, Toxic Granulation Cancelled, Toxic Vacuolation Cancelled, Dohle Bodies Cancelled, Romie Rods Cancelled, Platelet Estimate Cancelled, Plt Morphology Comment Cancelled, RBC Morphology Cancelled, Polychromasia Cancelled, Hypochromasia Cancelled, Poikilocytosis Cancelled, Basophilic Stippling Cancell ed, Anisocytosis Cancelled, Microcytosis Cancelled, Macrocytosis Cancelled, Spherocytes Cancelled, Sickle Cells Cancelled, Target Cells Cancelled, Tear Drop Cells Cancelled, Ovalocytes Cancelled, Stomatocytes Cancelled, Melgar-[place] Bodies Cancelled, Roby Cells Cancelled, Bite Cells Cancelled, Crenated Cell Cancelled, Acanthocytes (Spur) Cancelled, Rouleaux Cancelled, Schistocytes Cancelled 08/15/22 11:35: Sodium 133 L, Potassium 3.5, Chloride 103, Carbon Dioxide 19.0 L , Anion Gap 11, BUN 13, Creatinine 0.50 L, Estim Creat Clear Calc 176.25, Est GFR (MDRD) Af Amer 175, Est GFR (MDRD) Non-Af 145, BUN/Creatinine Ratio 26.1 H, Glucose 80, Calcium 8.9, Total Bilirubin 0.70, Direct Bilirubin 0.25, AST 15, ALT 27, Alkaline Phosphatase 150 H, Troponin I High Sens 3, Total Protein 8.0, Albumin 3.4, Globulin 4.6 H 08/15/22 11:35: Lactic Acid 0.9 08/15/22 11:35: WBC 25.3 H, RBC 5.76 H, Hgb 13.0, Hct 44.0, MCV 76.4 L, MCH 22.6 L, MCHC 29.5 L, RDW Std Deviation 45.6 H, RDW Coeff of Domonique 17.1 H, Plt Count 253, MPV 11.0, Neut % (Auto) Not Reportable, Absolute Neuts (auto) 20.5 H, Absolute Lymphs (auto) 2.28, Total Counted 100, Neutrophils % (Manual) 81 H, Lymphocytes % (Manual) 9 L, Monocytes % (Manual) 10, Diff Path Review Not Reportable, Platelet Estimate ADEQUATE, Anisocytosis 1+, Microcytosis 1+ 08/15/22 12:10: Urine Color Yellow, Urine Clarity Sl. Cloudy, Urine pH 6.0, Ur Specific [place]in[place] 1.025, Urine Protein 30 H, Urine Glucose (UA) Normal, Urine Ketones 150 A*, Urine Occult Blood 25 H, Urine Nitrite Negative, Urine Bilirubin Negative, Urine Urobilinogen Normal, Ur Leukocyte Esterase 100 H, Urine RBC 0-5 SEEN, Urine WBC 10-25 SEEN, Ur Squamous Epith Cells 0-5 SEEN, Urine Bacteria 0 SEEN, Urine Mucus 0 SEEN 08/16/22 06:30: WBC 22.1 H, RBC 5.15, Hgb 11.8 L, Hct 38.7, MCV 75.1 L, MCH 22.9 L, MCHC 30.5 L, RDW Std Deviation 45.1 H, RDW Coeff of Domonique 16.9 H, Plt Count 211, MPV 10.5, Immature Gran % (Auto) 0.700, Neut % (Auto) 91.4 H, Lymph % (Auto) 4.0 L, Elbert % (Auto) 3.6, Eos % (Auto) 0.0, Baso % (Auto) 0.3, Absolute Neuts (auto) 20.1 H, Absolute Lymphs (auto) 0.89, Nucleated RBC % 0, Differential Comment SCANNED 08/16/22 06:30: Sodium 137, Potassium 3.5, Chloride 106, Carbon Dioxide 24.0, Anion Gap 7, BUN 10, Creatinine 0.48 L, Estim Creat Clear Calc 183.59, Est GFR (MDRD) Af Amer 184, Est GFR (MDRD) Non-Af 152, BUN/Creatinine Ratio 20.9 H, Glucose 96, Calcium 8.6 Micro: Microbiology 08/15/22 17:25 Interface Orders Respiratory Panel (PCR) - Final RSV A 08/15/22 13:35 Stool Stool Lactoferrin - Final 08/15/22 13:35 Stool Enteric Bacteriology - Final 08/15/22 13:35 Stool C. difficile GDH Antigen & Toxins - Final 08/15/22 13:35 Stool C. difficile DNA Amplification - Final 08/15/22 11:15 Nasal Secretion SARS-CoV-2 Antigen (Rapid) - Final Radiography Diagnostic Testing: Radiology Impression Chest X-Ray 08/15/22 12:20 IMPRESSION: Right posterior lateral seventh rib fracture near since prior study. Left posterior lateral seventh rib fracture also new since prior study. ACDF extends caudally to the T3 level. Electronically Signed: Jaleel Shea MD, JD at 12:47 EDT , Chest CTA 08/15/22 13:13 IMPRESSION: Normal CTA chest examination, without a demonstrated pulmonary embolism or arterial dissection. Pulmonary fibrosis and lung infiltrates detailed above. Electronically Signed: Jaleel Shea MD, JD at 14:25 EDT , Abdomen/Pelvis CT 08/15/22 13:14 IMPRESSION: Root and thecal material are seen throughout the colon. Status post cholecystectomy. Increased markings at the lung bases. Electronically Signed: Ashish Villatoro MD at 14:13 EDT , Physical Exam Narrative Physical exam: General: Alert, Oriented x3, Cooperative, appears frail, on Airvo HEENT: Atraumatic Oral: Moist Mucosa Neck: Supple Lungs: Diminished to auscultation Cardiovascular: HS I+II, regular, no murmurs Abdomen: Suprapubic catheter in place bowel Sounds Present, Soft, Non Tender Extremities: No edema Skin: No rashes, No breakdown Neurological: Grossly intact Psych/Mental Status: Appropriate Assessment & Plan Assessment/Plan (1) Acute respiratory failure with hypoxia: PLAN: Plan 1. Acute hypoxic respiratory failure secondary to RSV pneumonia/bacterial pneumonia Patient is currently on Airvo Admitting chest x-ray had shown right posterior lateral seventh rib fracture, left posterolateral seventh rib fracture also new CTA of the chest showed pulmonary fibrosis and bilateral infiltrates WBC count decreased to 22.1 from 25.3 Respiratory panel positive for RSV. COVID-19 rapid and PCR negative Continue on IV ceftriaxone and azithromycin as well as breathing treatments Pulmonology consult -patient discussed, will transfer patient to ICU for closer monitoring 2. Gram-positive cocci possible Enterococcus UTI due to suprapubic catheter Continue on IV ceftriaxone for now 3. Chronic diarrhea, chronic C. diff colonizer, stool for C. difficile and enteric panel negative Will add lactobacillus, continue to monitor 4. 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 Anxiety/depression, continue on home medications 6. DVT prophylaxis -Lovenox subcu Charges/Coding Visit Charges Inpatient E&M: 93546 Subs Hosp L2
[2022-08-16] MEDS: Acetaminophen 325 MG Tablet 650 MG PO ×2 (10:06→18:09)
[2022-08-16] MEDS: Baclofen 10 MG Tablet 30 MG PO ×4 (10:26→21:31)
[2022-08-16] MEDS: DULoxetine Hcl 60 MG Capsule 120 MG PO (10:26)
[2022-08-16] MEDS: Gabapentin 400 MG Capsule 800 MG PO ×4 (10:27→21:31)
[2022-08-16] MEDS: Tolterodine Tartrate 2 MG CAP.SA PO (10:27)
[2022-08-16] MEDS: Enoxaparin 40 MG/0.4 ML Syringe SC (10:27)
[2022-08-16] MEDS: Cilostazol 50 MG Tablet PO ×2 (10:28→21:31)
--- NOTE | 2022-08-16 11:00 | CASEMGMT ---
RN BELA ORACLE MANAGER CM to room to meet with patient for initial transition planning/care coordination assessment. ANTONIETTA CRAMER introduced self and role at [facility]. Pt voices understanding and consents to assessment at this time. Pt resting in bed in no distress at this time. Pt is A/O at this time and answers all questions appropriately. Care providers, pharmacy, and demographics verified/updated at this time. PCP: Dr Zimmer Specialists: Dr Terrell in [facility] Preferred Pharmacy: [facility] Retail Insurance: [employer] Prescription Benefit: Yes Living Will/HPOA: Pt does not currently have LW/HCPOA and declines info at this time. LNOK: 2 adult children and 2 children under 18. Mother, . Sister, Liseth Living Arrangements: Lives w/friend, Giovanna in one-story home w/2 steps to enter. Pt is paraplegic. Son and her aide helps get her up the steps in a W/C. Pt has CM through [facility], Azra Arroyo. She has aides from [place] 4 days a week (Sun 10 AM-6 PM, 9AM-8PM, Sun 9AM-8 PM, 9 AM- 8PM) for care w/ADL's and IADL's. The aide prepares meals for her to have when home alone and she also gets MOW. Pt states days an aide is not there, she usually does not get OOB and is able to take care of herself in the bed. When her roommate is home, she will assist w/getting her meals. Transportation: Pt states she never leaves her home. She states she will need transportation home @ d/c. DME: States has the following DME: sliding board, W/C, shower chair. SP catheter supplies are delivered to her home. Pt states no need for further DME at this time. HHC/SNF: Hx [facility] in 2020 and [facility]. Pt declines need for HHC. She did ask if therapy could work w/her while @ [facility] for stretching. MS Connie3 ANTONIETTA CRAMER made aware. Pt wishes to return home and states has no concerns with going home at time of discharge. CM to follow for any further discharge planning/needs. Pt voices no further concerns/needs at this time. Advised pt to ask for CM if any further questions/concerns/needs arise. Voices understanding. PLAN: Home [place] BSN RN CM
[2022-08-16] MEDS: Loperamide 2 MG Capsule 4 MG PO (11:30)
[2022-08-16] MEDS: Ceftriaxone 1 GM/50 ML BAG IV (12:52)
[2022-08-16] MEDS: 0.9% Saline Lock 10 ML Syringe IV (14:45)
[2022-08-16] MEDS: Ipratropium/Albuterol Sulfate 3 ML AMPUL.NEB INHALATION ×2 (15:32→19:21)
[2022-08-16] MEDS: clonazePAM 0.5 MG Tablet PO ×2 (15:46→21:32)
--- NOTE | 2022-08-16 16:38 | CON.PCM.CC_ITS ---
Assessment & Plan Assessment/Plan (1) Acute respiratory failure with hypoxia: (2) Diarrhea: (3) Sepsis: PLAN: Plan RECOMMENDATIONS: 1. Transfer to intensive care unit for closer monitoring 2. Aggressive electrolyte repletion given ongoing diarrhea 3. Continue empiric antibiotics and bronchodilators 4. Fluid bolus as necessary for hypotension 5. Possibly initiate steroid therapy tomorrow if not improving IMPRESSIONS: 1. Acute hypoxic respiratory failure secondary to RSV Patient has tested positive for RSV and is currently on Airvo at 70% to maintain saturations. Patient does have what appears to be new rib fractures with no history of trauma. Patient with significant leukocytosis on presentation. Patient is also growing gram-positive cocci from urine and sputum. Unclear if patient has an element of embolic pneumonia. Agree with empiric antibiotics for now. Continue to wean supplemental oxygen as tolerated. May add empiric steroid therapy tomorrow if patient is not improving. Would recommend moving patient to intensive care given FiO2 requirements and paraplegia. Patient with marginal blood pressures at baseline, so cannot exclude the need for pressors moving forward. 2. Complicated UTI with probable Enterococcus Patient with suprapubic catheter. Patient does not appear to have endorgan damage outside of hypoxic respiratory failure. It is unclear how much of this is related to the concomitant RSV or the gram-positive cocci. Patient has had history of MDRO in the past, but white count has responded well to current antibiotics. We will continue these for now pending cultures 3. Chronic diarrhea Infectious work-up is currently underway. We will need to monitor electrolytes closely given ongoing losses. We will also need to monitor patient closely for skin breakdown. 4. Paraplegia/neurogenic bladder/anxiety/depression/tobacco abuse/THC use Complicates care, management, recovery and prognosis. Okay to continue with baseline medications. Patient can be offered nicotine replacement if necessary. Smoking cessation was discussed in detail. HPI Consult Data Date of Consult: 08/17/22 HPI Narrative Reason for Consultation: Hypoxia HPI Narrative: ROGELIO MARRERO is a 42 F, with past medical history listed below, who presents to [facility] in 08/15/2022 secondary to shortness of breath and continue d diarrhea. Patient reportedly had been admitted at [facility] about a month ago and diagnosed with colitis. Patient was placed on Cipro and Flagyl at that time with no improvement in diarrhea. Patient had complained of worsening shortness of breath and cough and had called EMS on the day of presentation for an evaluation. Patient did not report any fever, but had not been checking her temperature. Patient had not had any significant abdominal pain. Patient does have a chronic suprapubic catheter secondary to paraplegia associated with a prior spinal abscess. In the ER, patient was afebrile with adequate blood pressures of 110/95. Patient was requiring 2 L nasal cannula to maintain saturations but was tachypneic at 22 breaths/min. Laboratory work-up showed a white blood cell co unt of 25.3 with a hemoglobin of 13 and platelets of 253. Chemistries with a potassium of 3.5 and creatinine of 0.5. LFTs were relatively unremarkable and lactate was within normal limits. Chest x-ray showed a rib fracture and a subsequent CTA of the chest showed scattered groundglass opacities. Patient was subsequently found to have RSV and believes that she has a great niece that was diagnosed with this recently. Patient was placed on DuoNebs, empiric antibiotics and admitted to the hospital for further evaluation. Patient also has used midodrine in the past secondary to transient hypotension. Throughout the hospital course, patient has had increased FiO2 requirements. Patient was requiring 70% FiO2 by Airvo while on MedSurg during my evaluation. Patient appears relatively comfortable, but states she does not use supplemental oxygen at baseline. Patient states that she does smoke tobacco and has a [id number] smoking history. Patient also smokes marijuana, but denies any recent IV drug use. Patient states that she has had diarrhea but does not believe it is changed in frequency or consistency. Patient is not reporting any abdominal pain, but does not have much sensation below her xiphoid. Patient has had a cough and reported minimal to no production. Patient described the cough is barky and paroxysmal. Review of systems otherwise negative from a constitutional, HEENT, respiratory, cardiovascular, GI, genitourinary, musculoskeletal, skin, neurologic, psychia tric and hematologic system unless stated above. [facility] Medical History Anxiety and depression Chronic indwelling Charles catheter DVT (deep venous thrombosis) Esophageal reflux Hepatitis Irregular heart beat Kidney stones Neurogenic bladder Paraplegia Spinal abscess Home Medications baclofen 20 mg tablet 30 mg PO 4X/DAY muscle spasm 10/19/19 [History Last Taken 08/15/22] duloxetine 60 mg capsule,delayed release 120 mg PO DAILY depression 10/19/19 [History Last Taken 08/15/22] oxybutynin chloride 10 mg tablet,extended release 24 hr 10 mg PO DAILY bladder 12/24/19 [History Last Taken 08/15/22] gabapentin 100 mg capsule 800 mg PO 4X/DAY paraplegia/nerve pain 05/02/20 [History Last Taken 08/15/22] midodrine 10 mg tablet 10 mg PO PRN PRN Hypotension 05/09/20 [History Last Taken 06/29/20] clonazepam 0.5 mg tablet 0.5 mg PO TID PRN Anxiety #9 tabs 07/05/20 [Rx Last Taken 08/15/22] cilostazol 50 mg tablet 50 mg PO BID antiplatelet 08/15/22 [History Last Taken 08/15/22] meloxicam 15 mg tablet 15 mg PO DAILY spasms 08/15/22 [History Last Taken 08/15/22] trazodone 50 mg tablet 50 mg PO QHS PRN Sleep 08/15/22 [History Last Taken Unknown] Allergy/AdvReac Type Severity Reaction Status Date / Time Penicillins AdvReac PT UNSURE Verified 08/15/22 10:26 OF REACTION Family History Other Multiple sclerosis Social History household members: none Smoking Status: Current every day smoker tobacco type: cigarettes alcohol intake: current Alcohol type: other substance use type: does not use ROS ROS Narrative See HPI Physical Exam Const alert, oriented x3 and no apparent distress Constitutional Narrative: Appears older than stated age. No conversational dyspnea. HEENT normocephalic and head/scalp atraumatic Eyes PERRL, EOMs intact bilaterally, conjunctivae normal and no scleral icterus Neck full ROM Chest inspection of chest normal Resp Auscultation: wheezes and diminished lung sounds; Negative for rales or rhonchi Cardio regular rate, regular rhythm, S1 normal heart sound, S2 normal heart sound, no murmurs, no rub and no gallops GI normal to inspection, nondistended, normoactive bowel sounds Extremity no clubbing, cyanosis or edema Extremity Narrative: Weakness of bilateral upper extremities with some atrophy noted. Atrophy of the lower extremities noted Neuro oriented x3 Neuro Narrative: Decreased movement and sensation below xiphoid process. Some atrophy noted. Psych cooperative and affect normal Lab / Micro Data Attestation: I reviewed the patient's lab results. Result Diagrams: 08/17/22 04:50 08/17/22 04:50 Labs: Laboratory Results - last 24 hr 08/15/22 11:35: Diff Path Review Not Reportable 08/16/22 06:30: WBC 22.1 H, RBC 5.15, Hgb 11.8 L, Hct 38.7, MCV 75.1 L, MCH 22.9 L, MCHC 30.5 L, RDW Std Deviation 45.1 H, RDW Coeff of Domonique 16.9 H, Plt Count 211, MPV 10.5, Immature Gran % (Auto) 0.700, Neut % (Auto) 91.4 H, Lymph % (Auto) 4.0 L, [place] % (Auto) 3.6, Eos % (Auto) 0.0, Baso % (Auto) 0.3, Absolute Neuts (auto) 20.1 H, Absolute Lymphs (auto) 0.89, Nucleated RBC % 0, Differential Comment SCANNED 08/16/22 06:30: Sodium 137, Potassium 3.5, Chloride 106, Carbon Dioxide 24.0, Anion Gap 7, BUN 10, Creatinine 0.48 L, Estim Creat Clear Calc 183.59, Est GFR (MDRD) Af Amer 184, Est GFR (MDRD) Non-Af 152, BUN/Creatinine Ratio 20.9 H, Glucose 96, Calcium 8.6 08/16/22 10:30: COVID-19 (ASHLEY) Not Detected Micro: Microbiology 08/15/22 11:15 Nasal Secretion SARS-CoV-2 Antigen (Rapid) - Final 08/15/22 11:40 Urine Catheter - Charles Urine Culture - Preliminary GPC Poss Enterococcus sp 08/15/22 22:50 Interface Orders Gram Stain - Final 08/15/22 17:25 Interface Orders Respiratory Panel (PCR) - Final RSV A 08/15/22 13:35 Stool Stool Lactoferrin - Final 08/15/22 13:35 Stool Enteric Bacteriology - Final 08/15/22 13:35 Stool C. difficile GDH Antigen & Toxins - Final 10/25/22 13:35 Stool C. difficile DNA Amplification - Final Charges/Coding Visit Charges Inpatient E&M: 08697 Init Hosp L3
[2022-08-16] MEDS: Ensure Plus High Protein 120 ML LIQUID PO (18:04)
[2022-08-16] MEDS: Ketorolac 15 MG/ML Vial 30 MG IV (21:32)
[2022-08-17] VITALS (31 sets, daily range): BP systolic 85–108; BP diastolic 54–76; PULSE 84–133; RESP 14–25; TEMP 36.6–37.1; O2SAT 91–100
[2022-08-17 05:00] LABS: Absolute Lymphocyte Count 1.49 X10^3/uL (0.83-4.51); Absolute Neutrophil Count 16.2 X10^3/uL (2.0-7.7); Basophil# 0.07 X10^3/uL; Basophil% 0.4 % (0-1); Eosinophil# 0.07 X10^3/uL; Eosinophils% 0.4 % (0-5); Hematocrit 36.9 % (37-47); Hemoglobin 10.6 g/dL (12.0-15.0); Lymphocyte # 1.49 X10^3/ul (0.83-4.51); Mean Corp Hgb Conc 28.7 g/dL (32-36); Mean Corpuscular Hgb 22.5 pg (27.0-32.0); Mean Corpuscular Volume 78.3 fL (81-99); Mean Platelet Vol. 10.8 fl (6.2-12.0); Monocyte# 0.76 X10^3/uL; Monocyte% 4.1 % (0-10); NRBC Flagged by Analyzer 0 % (0-5); Neutrophil # 16.19 X10^3/uL (2.7-7.7); Neutrophil % 86.5 % (47-70); Platelet Count 225 K/mm3 (150-450); RBC Distribution Width CV 16.8 % (11.6-14.6); RBC Distribution Width SD 47.6 fl (35.1-43.9); Red Blood Count 4.71 M/mm3 (4.2-5.4); White Blood Count 18.7 K/mm3 (4.4-11.0)
[2022-08-17 05:27] LABS: Anion Gap 6 (5-15); BUN 10 mg/dL (7-18); BUN/Creat Ratio 30.2 RATIO (10-20); Calcium,Total 8.6 mg/dL (8.5-10.1); Chloride 109 mmol/L (98-107); Creatinine, Serum 0.33 mg/dL (0.55-1.02); EST Glomerular Filtration Rate 233 mL/min (>60); Est Glom Filt Rate - Afr Amer 281 mL/min (>60); Estimated Creatinine Clearance 267.04 ml/min; Glucose 103 mg/dL (74-106); Potassium 3.2 mmol/L (3.5-5.1); Sodium Level 140 mmol/L (136-145)
[2022-08-17] MEDS: clonazePAM 0.5 MG Tablet PO ×2 (06:51→21:53)
[2022-08-17] MEDS: Potassium Chloride Oral Tablet 20 MEQ 40 MEQ PO (06:51)
[2022-08-17] MEDS: Ipratropium/Albuterol Sulfate 3 ML AMPUL.NEB INHALATION ×4 (06:58→19:01)
--- NOTE | 2022-08-17 07:19 | PCM.PN.INT ---
Assessment & Plan Assessment/Plan (1) Acute respiratory failure with hypoxia: (2) Diarrhea: (3) Sepsis: PLAN: Plan RECOMMENDATIONS: 1. Transition to nasal cannula and wean as tolerated 2. Aggressive electrolyte repletion as indicated 3. Consider narrowing of antibiotics. 4. Continue bronchodilators with outpatient complete PFT 5. Okay to leave the intensive care unit from my perspective IMPRESSIONS: 1. Acute hypoxic respiratory failure secondary to RSV Patient has tested positive for RSV and previously was on Airvo at 70% to maintain saturations. Patient does have what appears to be new rib fractures with no history of trauma. Patient with significant leukocytosis on presentation, but appears to be improving. Patient appears to be growing Enterococcus from urine. If patient grows Enterococcus from sputum, may need an infectious disease consult for recommendations. Continue to wean supplemental oxygen as tolerated. Okay to leave the intensive care unit from my perspective. 2. Complicated UTI with probable Enterococcus Patient with suprapubic catheter. Cultures are not consistent with VRE. Patient does not appear to have endorgan damage outside of hypoxic respiratory failure. It is unclear how much of this is related to the concomitant RSV or the gram-positive cocci. Patient has had history of MDRO in the past, but white count has responded well to current antibiotics. We will continue these for now pending cultures 3. Chronic diarrhea Infectious work-up is unremarkable. We will need to monitor electrolytes closely given ongoing losses. We will also need to monitor patient closely for skin breakdown. Patient does have a history of C. difficile and will need to be followed closely given needs of antibiotics given problem #2. 4. Paraplegia/neurogenic bladder/anxiety/depression/tobacco abuse/THC use Complicates care, management, recovery and prognosis. Okay to continue with baseline medications. Patient can be offered nicotine replacement if necessary. Smoking cessation was discussed in detail. Subjective Subjective Patient did well overnight. Patient continues to report a burning sensation of her lower extremities, but overall feels subjectively improved. Oxygen requirements have significantly improved. Patient has not had any bowel movements overnight. Patient has not reported any epistaxis. Objective Data Objective Data Vital Signs: Vital Signs Temp Pulse Resp BP Pulse Ox O2 Del Method O2 Flow Rate 36.7 C 106 H 20 H 108/70 93 Nasal Cannula 6 08/17/22 04:00 08/17/22 06:59 08/17/22 06:59 08/17/22 06:00 08/17/22 06:59 08/17/22 06:59 08/17/22 06:59 FiO2 45 08/17/22 06:59 Oxygen Flow Rate (L/min) 6 Oxygen Delivery Method Nasal Cannula Weight: 78.018 kg Body Mass Index (BMI) 22.6 Intake & Output: Intake and Output for Last 24 Hours 08/15/22 08/16/22 08/17/22 23:59 23:59 23:59 Intake Total 2140 / 2140 305 / 305 Output Total 700 / 700 850 / 1450 700 / 700 Balance 1440 / 1440 -545 / -1145 -700 / -700 Lab / Micro Data Attestation: I reviewed the patient's lab results. Result Diagrams: 08/17/22 04:50 08/17/22 04:50 Labs: Laboratory Results - last 24 hr 08/16/22 06:30: Differential Comment SCANNED 08/16/22 06:30: Sodium 137, Potassium 3.5, Chloride 106, Carbon Dioxide 24.0, Anion Gap 7, BUN 10, Creatinine 0.48 L, Estim Creat Clear Calc 183.59, Est GFR (MDRD) Af Amer 184, Est GFR (MDRD) Non-Af 152, BUN/Creatinine Ratio 20.9 H, Glucose 96, Calcium 8.6 08/16/22 10:30: COVID-19 (ASHLEY) Not Detected 08/17/22 04:50: WBC 18.7 H, RBC 4.71, Hgb 10.6 L, Hct 36.9 L, MCV 78.3 L, MCH 22.5 L, MCHC 28.7 L D, RDW Std Deviation 47.6 H, RDW Coeff of Domonique 16.8 H, Plt Count 225, MPV 10.8, Immature Gran % (Auto) 0.600, Neut % (Auto) 86.5 H, Lymph % (Auto) 8.0 L, [place] % (Auto) 4.1, Eos % (Auto) 0.4, Baso % (Auto) 0.4, Absolute Neuts (auto) 16.2 H, Absolute Lymphs (auto) 1.49, Nucleated RBC % 0 08/17/22 04:50: Sodium 140, Potassium 3.2 L, Chloride 109 H, Carbon Dioxide 25.0, Anion Gap 6, BUN 10, Creatinine 0.33 L, Estim Creat Clear Calc 267.04, Est GFR (MDRD) Af Amer 281, Est GFR (MDRD) Non-Af 233, BUN/Creatinine Ratio 30.2 H, Glucose 103, Calcium 8.6 Micro: Microbiology 08/15/22 11:40 Urine Catheter - Charles Urine Culture - Final Enterococcus faecalis 08/15/22 11:15 Nasal Secretion SARS-CoV-2 Antigen (Rapid) - Final 08/15/22 22:50 Interface Orders Gram Stain - Final 08/15/22 17:25 Interface Orders Respiratory Panel (PCR) - Final RSV A 08/15/22 13:35 Stool Stool Lactoferrin - Final 08/15/22 13:35 Stool Enteric Bacteriology - Final 08/15/22 13:35 Stool C. difficile GDH Antigen & Toxins - Final 08/15/22 13:35 Stool C. difficile DNA Amplification - Final Physical Exam Const alert, oriented x3 and no apparent distress Constitutional Narrative: Appears older than stated age. No conversational dyspnea. General Appearance: cooperative and well developed HEENT normocephalic and head/scalp atraumatic Eyes PERRL, EOMs intact bilaterally, conjunctivae normal and no scleral icterus Neck full ROM Chest inspection of chest normal Resp Auscultation: diminished lung sounds; Negative for rales, rhonchi or wheezes Cardio regular rate, regular rhythm, S1 normal heart sound, S2 normal heart sound, no murmurs, no rub and no gallops GI normal to inspection, nondistended, normoactive bowel sounds Extremity no clubbing, cyanosis or edema Extremity Narrative: Weakness of bilateral upper extremities with some atrophy noted. Atrophy of the lower extremities noted Neuro oriented x3 and CN's II-XII intact bilaterally Neuro Narrative: Decreased movement and sensation below xiphoid process. Some atrophy noted. Psych cooperative and affect normal Charges/Coding Visit Charges Inpatient E&M: 03600 Subs Hosp L2
--- NOTE | 2022-08-17 09:06 | PN.HOSP_ITS ---
Subjective Subjective Follow-up on acute hypoxic respiratory failure/RSV and streptococcal pneumonia: Patient was seen and examined.?Patient has improved and is currently on 6 L of oxygen. She complains of diarrhea. She has been started on oral vancomycin for empiric C. difficile treatment. Denies any fever or chills. Objective Data Objective Data Vital Signs: Vital Signs Temp Pulse Resp BP Pulse Ox O2 Del Method O2 Flow Rate 98.1 F 111 H 17 90/64 96 Nasal Cannula 6 08/17/22 04:00 08/17/22 07:00 08/17/22 07:00 08/17/22 07:00 08/17/22 07:00 08/17/22 07:00 08/17/22 07:00 FiO2 45 08/17/22 06:59 Oxygen Flow Rate (L/min) 6 Oxygen Delivery Method Nasal Cannula Weight: 78.018 kg Body Mass Index (BMI) 22.6 Intake & Output: Intake and Output for Last 24 Hours 08/15/22 08/16/22 08/17/22 23:59 23:59 23:59 Intake Total 2140 / 2140 305 / 305 Output Total 700 / 700 850 / 1450 700 / 700 Balance 1440 / 1440 -545 / -1145 -700 / -700 Lab / Micro Data Result Diagrams: 08/17/22 04:50 08/17/22 04:50 Labs: Laboratory Results - last 24 hr 08/16/22 10:30: COVID-19 (ASHLEY) Not Detected 08/17/22 04:50: WBC 18.7 H, RBC 4.71, Hgb 10.6 L, Hct 36.9 L, MCV 78.3 L, MCH 22.5 L, MCHC 28.7 L D, RDW Std Deviation 47.6 H, RDW Coeff of Domonique 16.8 H, Plt Count 225, MPV 10.8, Immature Gran % (Auto) 0.600, Neut % (Auto) 86.5 H, Lymph % (Auto) 8.0 L, [place] % (Auto) 4.1, Eos % (Auto) 0.4, Baso % (Auto) 0.4, Absolute Neuts (auto) 16.2 H, Absolute Lymphs (auto) 1.49, Nucleated RBC % 0 08/17/22 04:50: Sodium 140, Potassium 3.2 L, Chloride 109 H, Carbon Dioxide 25.0, Anion Gap 6, BUN 10, Creatinine 0.33 L, Estim Creat Clear Calc 267.04, Est GFR (MDRD) Af Amer 281, Est GFR (MDRD) Non-Af 233, BUN/Creatinine Ratio 30.2 H, Glucose 103, Calcium 8.6 Micro: Microbiology 08/15/22 22:50 Interface Orders Gram Stain - Final 08/15/22 22:50 Interface Orders Respiratory Culture - Preliminary Streptococcus pneumoniae 08/15/22 11:40 Urine Catheter - Charles Urine Culture - Final Enterococcus faecalis 08/15/22 11:15 Nasal Secretion SARS-CoV-2 Antigen (Rapid) - Final 08/15/22 17:25 Interface Orders Respiratory Panel (PCR) - Final RSV A 08/15/22 13:35 Stool Stool Lactoferrin - Final 08/15/22 13:35 Stool Enteric Bacteriology - Final 08/15/22 13:35 Stool C. difficile GDH Antigen & Toxins - Final 08/15/22 13:35 Stool C. difficile DNA Amplification - Final Physical Exam Narrative Physical exam: General: Alert, Oriented x3, Cooperative, on 6 L of oxygen HEENT: Atraumatic Oral: Moist Mucosa Neck: Supple Lungs: Diminished to auscultation Cardiovascular: HS I+II, regular, no murmurs Abdomen: Suprapubic catheter in place bowel Sounds Present, Soft, Non Tender Extremities: No edema Skin: No rashes, No breakdown Neurological: Grossly intact Psych/Mental Status: Appropriate Assessment & Plan Assessment/Plan (1) Acute respiratory failure with hypoxia: PLAN: Plan 1. Acute hypoxic respiratory failure secondary to RSV pneumonia/strep pneumoniae pneumonia Patient is improved, currently on 6 L of oxygen Admitting chest x-ray had shown right posterior lateral seventh rib fracture, left posterolateral seventh rib fracture also new CTA of the chest showed pulmonary fibrosis and bilateral infiltrates WBC count improved to 18.7 from 22.1 Respiratory panel positive for RSV. COVID-19 rapid and PCR negative Continue on IV ceftriaxone as well as breathing treatments DC IV azithromycin Pulmonology follow-up; will transfer to [facility] 2. Acute Enterococcus UTI due to suprapubic catheter Blood culture showed no growth Will start on IV vancomycin 3. 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 difficile and enteric panel negative GI consulted, recommended active treatment for acute C. difficile Continue on p.o. vancomycin, lactobacillus Strict stool charting 4. 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 Anxiety/depression, continue on home medications 6. DVT prophylaxis -Lovenox subcu Charges/Coding Visit Charges Inpatient E&M: 02615 Subs Hosp L2
[2022-08-17] MEDS: DULoxetine Hcl 60 MG Capsule 120 MG PO (09:21)
[2022-08-17] MEDS: Baclofen 10 MG Tablet 30 MG PO ×4 (09:21→21:50)
[2022-08-17] MEDS: Gabapentin 400 MG Capsule 800 MG PO ×4 (09:21→21:53)
[2022-08-17] MEDS: Tolterodine Tartrate 2 MG CAP.SA PO (09:21)
[2022-08-17] MEDS: Ceftriaxone 1 GM/50 ML BAG IV (09:22)
[2022-08-17] MEDS: Cilostazol 50 MG Tablet PO ×2 (09:22→21:53)
[2022-08-17] MEDS: Enoxaparin 40 MG/0.4 ML Syringe SC (09:39)
[2022-08-17] MEDS: Ensure Clear 120 ML Liquid PO ×4 (10:57→21:56)
[2022-08-17] MEDS: Vancomycin 125 MG/5 ML Susp PO.SYRINGE PO ×3 (10:57→23:13)
--- NOTE | 2022-08-17 11:23 | CASEMGMT ---
Social Work Pt has services through the [place] [facility]. Phone call to [employer] at [facility] Azra Lopez. (ph. [phone], fax [phone]) and informed of admission to hospital. Pt receives 41 hours of aid services/week through [place] and 7 Mom's meals per week. Per Azra, pt recently moved and some home modifications are needed as there are 3 steps into mobile home. Pt informed Azra previously she will need to talk over the possibility of a Ramp with her new roommate. Azra can arranged for a ramp when pt is agreeable. Pt's son currently carries pt into the home. SW will fax discharge orders to [employer] at appropriate time. BERNARD Salazar
[2022-08-17] MEDS: Ketorolac 15 MG/ML Vial 30 MG IV (13:25)
[2022-08-17] MEDS: Cholestyramine/Sucrose 4 GM/PACKET PO (14:39)
--- NOTE | 2022-08-17 14:47 | NURSING ---
Vancomycin dosing verified with Anny from pharmacy and bag verified with Farrah Saenz RN
--- NOTE | 2022-08-17 14:57 | PCM.RX.CS ---
Consult Pharmacy has been consulted to manage selected antiobiotic: Vancomycin Type of Consult: New start Prior Doses of Antibiotics Received/Current Regimen: 08/17/22 @ 1446 Labs: Sodium 140 mmol/L (136-145) 08/17/22 04:50 Potassium 3.2 mmol/L (3.5-5.1) L 08/17/22 04:50 Chloride 109 mmol/L (98-107) H 08/17/22 04:50 Carbon Dioxide 25.0 mmol/L (21.0-32.0) 08/17/22 04:50 Anion Gap 6 (5-15) 08/17/22 04:50 BUN 10 mg/dL (7-18) 08/17/22 04:50 Creatinine 0.33 mg/dL (0.55-1.02) L 08/17/22 04:50 Est GFR (MDRD) Af Amer 281 mL/min (>60) 08/17/22 04:50 Est GFR (MDRD) Non-Af 233 mL/min (>60) 08/17/22 04:50 BUN/Creatinine Ratio 30.2 RATIO (10-20) H 08/17/22 04:50 Glucose 103 mg/dL (74-106) 08/17/22 04:50 Microbiology: Microbiology 08/15/22 11:00 Blood Culture (Wb) - Right Wrist Blood Culture - Preliminary No growth in 48 hours. 08/15/22 11:35 Blood Culture (Wb) - Anticubital Left Blood Culture - Preliminary No growth in 48 hours. 08/15/22 22:50 Interface Orders Gram Stain - Final 08/15/22 22:50 Interface Orders Respiratory Culture - Preliminary Streptococcus pneumoniae 08/15/22 11:40 Urine Catheter - Charles Urine Culture - Final Enterococcus faecalis 08/15/22 11:15 Nasal Secretion SARS-CoV-2 Antigen (Rapid) - Final 08/15/22 17:25 Interface Orders Respiratory Panel (PCR) - Final RSV A 08/15/22 13:35 Stool Stool Lactoferrin - Final 08/15/22 13:35 Stool Enteric Bacteriology - Final 08/15/22 13:35 Stool C. difficile GDH Antigen & Toxins - Final 08/15/22 13:35 Stool C. difficile DNA Amplification - Final Goal Trough: 15-20 mcg/mL Pharmacy Plan for Drug Dosing: Pharmacy Service will continue to monitor and adjust dosing as required. 08/17/22 @ 2239 start maintenance dose of Vancomycin 1000mg every 8 hours Follow-Up Labs: Trough Vancomycin Labs to be done on [date and time ordered]: 08/18/22 @ 1400
[2022-08-17] MEDS: Midodrine HCl 5 MG Tablet 10 MG PO (16:11)
--- NOTE | 2022-08-17 16:18 | PCM.CONS.GEN ---
Assessment & Plan Assessment/Plan (1) C. difficile colitis: PLAN: C difficile?colonization?is the existence of the organism or toxin in the stool of patients who do not have unexplained new diarrhea.?C difficile?infection?is the existence of the organism or toxin in patients with unexplained new diarrhea. Laboratory testing cannot distinguish between asymptomatic?C difficile?colonization and symptomatic CDI. The prevalence of asymptomatic?C difficile?stool colonization varies from 3% to 26% in adult hospitalized patients to 5% to 7% . In asymptomatic adults without any recent healthcare exposure, the prevalence is less than 2%. A patient presenting with no diarrhea, a positive polymerase chain reaction (PCR) test, and a negative enzyme immunoassay (EIA) test likely has?C difficile?colonization. She has persistent diarrhea with eating, 30 pound weight loss and is positive. PCR test and she has positivity of the A/B toxin. Recommendation is vancomycin 125 mg p.o. 4 times daily x14 days. 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 I will check her immunoglobulins G, M, A, E to see if she would also benefit from IVIG in the future if the antitoxin is not successful and she develops recurrent C. difficile colitis HPI Consult Data Date of Consult: 08/17/22 HPI Narrative Reason for Consultation: Diarrhea HPI Narrative: ROGELIO MARRERO, is a 42 F who presents to the hospital with diarrhea and shortness of breath.? About a month ago she went to an outside hospital and was diagnosed with colitis with started on Cipro and Flagyl but did not have any improvement in her diarrhea.? Since then she is continued having soft bowel movements but did not appear to be liquid.? In the ER a stool sample was sent for C. difficile and enteric pathogens those results were pending.? She does have a leukocytosis and she was found to be hypoxic into the mid 80s requiring 4 L nasal cannula.? She does have coarse lung sounds throughout and she states that her great niece had RSV last week.? CTA of the chest was done which was negative for PE but did show multiple areas of groundglass opacities and possible infiltrates. She was diagnosed with RSV and I was asked to see her for diarrhea. She says that the diarrhea actually started on 07/16/2022. She has a history of of her urine with Enterococcus, MRSA and Klebsiella secondary to chronic catheterization. She is also approximately 30 pounds in the last month from not been able to eat without having diarrhea. Her stools came back positive for C. difficile A/B toxin and she is C. difficile PCR positive. [facility] Medical History Anxiety and depression Chronic indwelling Charles catheter DVT (deep venous thrombosis) Esophageal reflux Hepatitis Irregular heart beat Kidney stones Neurogenic bladder Paraplegia Spinal abscess Home Medications baclofen 20 mg tablet 30 mg PO 4X/DAY muscle spasm 10/19/19 [History Last Taken 08/15/22] duloxetine 60 mg capsule,delayed release 120 mg PO DAILY depression 10/19/19 [History Last Taken 08/15/22] oxybutynin chloride 10 mg tablet,extended release 24 hr 10 mg PO DAILY bladder 12/24/19 [History Last Taken 08/15/22] gabapentin 100 mg capsule 800 mg PO 4X/DAY paraplegia/nerve pain 05/02/20 [History Last Taken 08/15/22] midodrine 10 mg tablet 10 mg PO PRN PRN Hypotension 05/09/20 [History Last Taken 06/29/20] clonazepam 0.5 mg tablet 0.5 mg PO TID PRN Anxiety #9 tabs 07/05/20 [Rx Last Taken 08/15/22] cilostazol 50 mg tablet 50 mg PO BID antiplatelet 08/15/22 [History Last Taken 08/15/22] meloxicam 15 mg tablet 15 mg PO DAILY spasms 08/15/22 [History Last Taken 08/15/22] trazodone 50 mg tablet 50 mg PO QHS PRN Sleep 08/15/22 [History Last Taken Unknown] Allergy/AdvReac Type Severity Reaction Status Date / Time Penicillins AdvReac PT UNSURE Verified 08/15/22 10:26 OF REACTION Family History Other Multiple sclerosis Social History household members: none Smoking Status: Current every day smoker tobacco type: cigarettes alcohol intake: current Alcohol type: other substance use type: does not use ROS Constitutional Constitutional: Denies chills, fatigue, fever(s) or malaise Eyes Eyes: Denies blurry vision ENT HEENT: Denies headache(s) or nasal discharge Cardiovascular Cardiovascular: Denies chest pain, dyspnea on exertion or syncope Respiratory/Chest Respiratory/Chest: Reports productive cough and shortness of breath at rest; Denies cough or shortness of breath with exertion Gastrointestinal Gastrointestinal: Reports diarrhea; Denies abdominal pain, constipation, nausea or vomiting Genitourinary Genitourinary: Denies dysuria Neurologic Neurologic: Denies focal weakness, numbness or tremor(s) Psychiatric Psychiatric: Denies anxiety or depression Physical Exam Narrative Physical exam: General: Alert, Oriented x3, Cooperative, on 6 L of oxygen HEENT: Atraumatic Oral: Moist Mucosa Neck: Supple Lungs: Diminished to auscultation Cardiovascular: HS I+II, regular, no murmurs Abdomen: Suprapubic catheter in place bowel Sounds Present, Soft, Non Tender Extremities: No edema Skin: No rashes, No breakdown Neurological: Grossly intact Psych/Mental Status: Appropriate Lab / Micro Data Result Diagrams: 08/17/22 04:50 08/17/22 04:50 Labs: Laboratory Results - last 24 hr 08/17/22 04:50: WBC 18.7 H, RBC 4.71, Hgb 10.6 L, Hct 36.9 L, MCV 78.3 L, MCH 22.5 L, MCHC 28.7 L D, RDW Std Deviation 47.6 H, RDW Coeff of Domonique 16.8 H, Plt Count 225, MPV 10.8, Immature Gran % (Auto) 0.600, Neut % (Auto) 86.5 H, Lymph % (Auto) 8.0 L, [place] % (Auto) 4.1, Eos % (Auto) 0.4, Baso % (Auto) 0.4, Absolute Neuts (auto) 16.2 H, Absolute Lymphs (auto) 1.49, Nucleated RBC % 0 08/17/22 04:50: Sodium 140, Potassium 3.2 L, Chloride 109 H, Carbon Dioxide 25.0, Anion Gap 6, BUN 10, Creatinine 0.33 L, Estim Creat Clear Calc 267.04, Est GFR (MDRD) Af Amer 281, Est GFR (MDRD) Non-Af 233, BUN/Creatinine Ratio 30.2 H, Glucose 103, Calcium 8.6 Micro: Microbiology 08/15/22 11:00 Blood Culture (Wb) - Right Wrist Blood Culture - Preliminary No growth in 48 hours. 08/15/22 11:35 Blood Culture (Wb) - Anticubital Left Blood Culture - Preliminary No growth in 48 hours. 08/15/22 22:50 Interface Orders Gram Stain - Final 08/15/22 22:50 Interface Orders Respiratory Culture - Preliminary Streptococcus pneumoniae 08/15/22 11:40 Urine Catheter - Charles Urine Culture - Final Enterococcus faecalis Charges/Coding Visit Charges Inpatient E&M: 59612 Init Hosp L3
[2022-08-17] MEDS: 0.9% Normal Saline 1,000 ML 999 ML IV (17:31)
[2022-08-17] MEDS: 0.9% Normal Saline 1,000 ML 100 ML IV (18:38)
[2022-08-17] MEDS: Vancomycin IV 1,000 MG/200 ML BAG 200 MG IV (23:12)
[2022-08-18] VITALS (18 sets, daily range): BP systolic 98–118; BP diastolic 65–89; PULSE 68–94; RESP 16–23; TEMP 36.6–36.9; O2SAT 90–97
[2022-08-18 04:01] LABS: Absolute Lymphocyte Count 1.75 X10^3/uL (0.83-4.51); Absolute Neutrophil Count 8.3 X10^3/uL (2.0-7.7); Basophil# 0.06 X10^3/uL; Basophil% 0.6 % (0-1); Eosinophils% 0.9 % (0-5); Hematocrit 29.6 % (37-47); Hemoglobin 8.9 g/dL (12.0-15.0); Lymphocyte # 1.75 X10^3/ul (0.83-4.51); Lymphocyte % 16.2 % (19-41); Mean Corp Hgb Conc 30.1 g/dL (32-36); Mean Corpuscular Hgb 22.8 pg (27.0-32.0); Mean Corpuscular Volume 75.7 fL (81-99); Mean Platelet Vol. 10.2 fl (6.2-12.0); Monocyte# 0.55 X10^3/uL; Monocyte% 5.1 % (0-10); NRBC Flagged by Analyzer 0 % (0-5); Neutrophil # 8.28 X10^3/uL (2.7-7.7); Neutrophil % 76.6 % (47-70); Platelet Count 213 K/mm3 (150-450); RBC Distribution Width CV 16.8 % (11.6-14.6); Red Blood Count 3.91 M/mm3 (4.2-5.4); White Blood Count 10.8 K/mm3 (4.4-11.0)
[2022-08-18 04:10] LABS: ALB/GLOB Ratio 0.6 RATIO (0.9-2.4); AST(SGOT) 8 U/L (15-37); Alanine Aminotransfer ALT/SGPT 14 U/L (13-56); Alkaline Phosphatase 92 U/L (45-117); Anion Gap 4 (5-15); BUN 11 mg/dL (7-18); BUN/Creat Ratio 32.8 RATIO (10-20); Calcium,Total 7.2 mg/dL (8.5-10.1); Chloride 112 mmol/L (98-107); Creatinine, Serum 0.34 mg/dL (0.55-1.02); EST Glomerular Filtration Rate 229 mL/min (>60); Est Glom Filt Rate - Afr Amer 278 mL/min (>60); Estimated Creatinine Clearance 259.19 ml/min; Globulin 3.6 g/dL (2.2-4.2); Glucose 113 mg/dL (74-106); Potassium 3.1 mmol/L (3.5-5.1); Protein, Total 5.6 g/dL (6.4-8.2); Sodium Level 142 mmol/L (136-145)
[2022-08-18] MEDS: 0.9% Normal Saline 1,000 ML 100 ML IV ×3 (04:54→21:10)
[2022-08-18] MEDS: Vancomycin IV 1,000 MG/200 ML BAG 200 MG IV (05:43)
[2022-08-18] MEDS: Vancomycin 125 MG/5 ML Susp PO.SYRINGE PO ×4 (05:43→23:12)
[2022-08-18] MEDS: Cholestyramine/Sucrose 4 GM/PACKET PO (05:43)
--- NOTE | 2022-08-18 06:39 | PCM.PN.INT ---
Assessment & Plan Assessment/Plan (1) Acute respiratory failure with hypoxia: (2) Diarrhea: (3) Sepsis: PLAN: Plan RECOMMENDATIONS: 1. Okay to discontinue nasal cannula oxygen 2. Aggressive electrolyte repletion as indicated 3. Antibiotics per primary service. 4. Continue bronchodilators with outpatient complete PFT 5. Hemodynamically stable on room air. Will sign off from a pulmonary/critical care perspective IMPRESSIONS: 1. Acute hypoxic respiratory failure secondary to RSV Patient has tested positive for RSV and previously was on Airvo at 70% to maintain saturations. Patient does have what appears to be new rib fractures with no history of trauma. Patient with significant leukocytosis on presentation, but appears to be improving. Patient appears to be growing Enterococcus from urine. Patient now off of supplemental oxygen. Okay to leave the intensive care unit from my perspective. 2. Complicated UTI with Enterococcus Patient with suprapubic catheter. Cultures are not consistent with VRE. Patient does not appear to have endorgan damage outside of hypoxic respiratory failure. It is unclear how much of this is related to the concomitant RSV or the gram-positive cocci. Patient has had history of MDRO in the past, but white count has responded well to current antibiotics. We will continue these for now pending cultures 3. Chronic diarrhea with C. difficile colonization Infectious work-up is unremarkable. We will need to monitor electrolytes closely given ongoing losses. Patient has not had significant bowel movements recently. Patient is getting p.o. vancomycin and is at risk for developing acute disease.. Patient does have a history of C. difficile and will need to be followed closely given needs of antibiotics given problem #2. 4. Paraplegia/neurogenic bladder/anxiety/depression/tobacco abuse/THC use Complicates care, management, recovery and prognosis. Okay to continue with baseline medications. Patient can be offered nicotine replacement if necessary. Smoking cessation was discussed in detail. Subjective Subjective Patient did well overnight. Patient did receive a 1 L fluid bolus yesterday afternoon secondary to hypotension with good response. Patient states her coughing is improved. Patient has not had any significant bowel movements and had questions on whether the p.o. vancomycin was needed. Objective Data Objective Data Vital Signs: Vital Signs Temp Pulse Resp BP Pulse Ox O2 Del Method O2 Flow Rate 36.6 C 78 19 H 98/76 96 Nasal Cannula 1 08/18/22 06:00 08/18/22 06:00 08/18/22 06:00 08/18/22 06:00 08/18/22 06:00 08/18/22 06:00 08/18/22 06:00 FiO2 93 08/17/22 20:00 Oxygen Flow Rate (L/min) 1 Oxygen Delivery Method Nasal Cannula Weight: 81.5 kg Body Mass Index (BMI) 22.6 Intake & Output: Intake and Output for Last 24 Hours 08/16/22 08/17/22 08/18/22 23:59 23:59 23:59 Intake Total 305 / 305 1940.25 / 1940.25 1449.75 / 1449.75 Output Total 850 / 1450 1100 / 1100 550 / 550 Balance -545 / -1145 840.25 / 840.25 899.75 / 899.75 Lab / Micro Data Attestation: I reviewed the patient's lab results. Result Diagrams: 08/18/22 03:45 08/18/22 03:45 Labs: Laboratory Results - last 24 hr 08/18/22 03:45: WBC 10.8, RBC 3.91 L, Hgb 8.9 L, Hct 29.6 L, MCV 75.7 L, MCH 22.8 L, MCHC 30.1 L, RDW Std Deviation 46.0 H, RDW Coeff of Domonique 16.8 H, Plt Count 213, MPV 10.2, Immature Gran % (Auto) 0.600, Neut % (Auto) 76.6 H, Lymph % (Auto) 16.2 L, [place] % (Auto) 5.1, Eos % (Auto) 0.9, Baso % (Auto) 0.6, Absolute Neuts (auto) 8.3 H, Absolute Lymphs (auto) 1.75, Nucleated RBC % 0 08/18/22 03:45: Sodium 142, Potassium 3.1 L, Chloride 112 H, Carbon Dioxide 26.0, Anion Gap 4 L, BUN 11, Creatinine 0.34 L, Estim Creat Clear Calc 259.19, Est GFR (MDRD) Af Amer 278, Est GFR (MDRD) Non-Af 229, BUN/Creatinine Ratio 32.8 H, Glucose 113 H, Calcium 7.2 L, Total Bilirubin 0.20, AST 8 L, ALT 14, Alkaline Phosphatase 92, Total Protein 5.6 L, Albumin 2.0 L, Globulin 3.6, Albumin/Globulin Ratio 0.6 L Micro: Microbiology 08/15/22 11:00 Blood Culture (Wb) - Right Wrist Blood Culture - Preliminary No growth in 48 hours. 08/15/22 11:35 Blood Culture (Wb) - Anticubital Left Blood Culture - Preliminary No growth in 48 hours. 08/15/22 22:50 Interface Orders Gram Stain - Final 08/15/22 22:50 Interface Orders Respiratory Culture - Preliminary Streptococcus pneumoniae 08/15/22 11:40 Urine Catheter - Charles Urine Culture - Final Enterococcus faecalis 08/15/22 11:15 Nasal Secretion SARS-CoV-2 Antigen (Rapid) - Final 08/15/22 17:25 Interface Orders Respiratory Panel (PCR) - Final RSV A 08/15/22 13:35 Stool Stool Lactoferrin - Final 08/15/22 13:35 Stool Enteric Bacteriology - Final 08/15/22 13:35 Stool C. difficile GDH Antigen & Toxins - Final 08/15/22 13:35 Stool C. difficile DNA Amplification - Final Physical Exam Const alert, oriented x3 and no apparent distress Constitutional Narrative: Appears older than stated age. No conversational dyspnea. General Appearance: cooperative and well developed HEENT normocephalic and head/scalp atraumatic Eyes PERRL, EOMs intact bilaterally, conjunctivae normal and no scleral icterus Neck full ROM Chest inspection of chest normal Resp Auscultation: diminished lung sounds; Negative for rales, rhonchi or wheezes Cardio regular rate, regular rhythm, S1 normal heart sound, S2 normal heart sound, no murmurs, no rub and no gallops GI normal to inspection, nondistended, normoactive bowel sounds Extremity no clubbing, cyanosis or edema Extremity Narrative: Weakness of bilateral upper extremities with some atrophy noted. Atrophy of the lower extremities noted Neuro oriented x3 and CN's II-XII intact bilaterally Neuro Narrative: Decreased movement and sensation below xiphoid process. Some atrophy noted. Psych cooperative and affect normal Charges/Coding Visit Charges Inpatient E&M: 26079 Subs Hosp L2
--- NOTE | 2022-08-18 07:37 | PCM.PN.HOSP ---
Subjective Subjective Follow-up on acute hypoxic respiratory failure/RSV and streptococcal pneumonia: Patient was seen and examined.? Patient was kept in the ICU although the initial plan was to transfer out of ICU. Patient became very tachycardic, sinus, heart rate more than 128, blood pressure was low in the 80s. She received IV fluid bolus as well as was maintained on IV fluids. Patient blood pressure is much improved today, she is no more tachycardic. She is off oxygen, denies any diarrhea or fever or chills. Objective Data Objective Data Vital Signs: Vital Signs Temp Pulse Resp BP Pulse Ox O2 Del Method O2 Flow Rate 97.8 F 71 19 H 117/77 90 Room Air 1 08/18/22 06:00 08/18/22 07:18 08/18/22 07:00 08/18/22 07:00 08/18/22 07:00 08/18/22 07:00 08/18/22 06:00 FiO2 93 08/17/22 20:00 Oxygen Flow Rate (L/min) 1 Oxygen Delivery Method Room Air Weight: 81.5 kg Body Mass Index (BMI) 22.6 Intake & Output: Intake and Output for Last 24 Hours 08/16/22 08/17/22 08/18/22 23:59 23:59 23:59 Intake Total 305 / 305 1940.25 / 1940.25 1649.75 / 1649.75 Output Total 850 / 1450 1100 / 1100 800 / 800 Balance -545 / -1145 840.25 / 840.25 849.75 / 849.75 Lab / Micro Data Result Diagrams: 08/18/22 03:45 08/18/22 03:45 Labs: Laboratory Results - last 24 hr 08/18/22 03:45: WBC 10.8, RBC 3.91 L, Hgb 8.9 L, Hct 29.6 L, MCV 75.7 L, MCH 22.8 L, MCHC 30.1 L, RDW Std Deviation 46.0 H, RDW Coeff of Domonique 16.8 H, Plt Count 213, MPV 10.2, Immature Gran % (Auto) 0.600, Neut % (Auto) 76.6 H, Lymph % (Auto) 16.2 L, [place] % (Auto) 5.1, Eos % (Auto) 0.9, Baso % (Auto) 0.6, Absolute Neuts (auto) 8.3 H, Absolute Lymphs (auto) 1.75, Nucleated RBC % 0 08/18/22 03:45: Sodium 142, Potassium 3.1 L, Chloride 112 H, Carbon Dioxide 26.0, Anion Gap 4 L, BUN 11, Creatinine 0.34 L, Estim Creat Clear Calc 259.19, Est GFR (MDRD) Af Amer 278, Est GFR (MDRD) Non-Af 229, BUN/Creatinine Ratio 32.8 H, Glucose 113 H, Calcium 7.2 L, Total Bilirubin 0.20, AST 8 L, ALT 14, Alkaline Phosphatase 92, Total Protein 5.6 L, Albumin 2.0 L, Globulin 3.6, Albumin/Globulin Ratio 0.6 L Micro: Microbiology 08/15/22 11:00 Blood Culture (Wb) - Right Wrist Blood Culture - Preliminary No growth in 48 hours. 08/15/22 11:35 Blood Culture (Wb) - Anticubital Left Blood Culture - Preliminary No growth in 48 hours. 08/15/22 22:50 Interface Orders Gram Stain - Final 08/15/22 22:50 Interface Orders Respiratory Culture - Preliminary Streptococcus pneumoniae 08/15/22 11:40 Urine Catheter - Charles Urine Culture - Final Enterococcus faecalis 08/15/22 11:15 Nasal Secretion SARS-CoV-2 Antigen (Rapid) - Final 08/15/22 17:25 Interface Orders Respiratory Panel (PCR) - Final RSV A 08/15/22 13:35 Stool Stool Lactoferrin - Final 08/15/22 13:35 Stool Enteric Bacteriology - Final 08/15/22 13:35 Stool C. difficile GDH Antigen & Toxins - Final 08/15/22 13:35 Stool C. difficile DNA Amplification - Final Physical Exam Narrative Physical exam: General: Alert, Oriented x3, Cooperative, off oxygen HEENT: Atraumatic Oral: Moist Mucosa Neck: Supple Lungs: Diminished to auscultation Cardiovascular: HS I+II, regular, no murmurs Abdomen: Suprapubic catheter in place bowel Sounds Present, Soft, Non Tender Extremities: No edema Skin: No rashes, No breakdown Neurological: Grossly intact Psych/Mental Status: Appropriate Assessment & Plan Assessment/Plan (1) Acute respiratory failure with hypoxia: PLAN: Plan 1. Acute hypoxic respiratory failure secondary to RSV pneumonia/strep pneumoniae pneumonia Appears resolved, not on oxygen anymore Admitting chest x-ray had shown right posterior lateral seventh rib fracture, left posterolateral seventh rib fracture also new CTA of the chest showed pulmonary fibrosis and bilateral infiltrates WBC count improved to 10.8 from 18.7 Respiratory panel positive for RSV. COVID-19 rapid and PCR negative. Urine streptococcal antigen positive Continue on IV ceftriaxone as well as breathing treatments Pulmonology consulted 2. Acute Enterococcus UTI due to suprapubic catheter Blood culture showed no growth Continue on IV vancomycin ID consulted 3. Acute C. diff in a chronic C. diff colonizer, Stool for C. difficile and enteric panel negative GI consulted, continue on p.o. vancomycin, lactobacillus Strict stool charting 4. 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 Anxiety/depression, continue on home medications 6. DVT prophylaxis -Lovenox subcu Charges/Coding Visit Charges Inpatient E&M: 44334 Subs Hosp L2
[2022-08-18] MEDS: Potassium Chloride Oral Tablet 20 MEQ 40 MEQ PO ×2 (07:49→17:47)
[2022-08-18] MEDS: Ensure Clear 120 ML Liquid PO ×2 (09:01→15:21)
[2022-08-18] MEDS: Ceftriaxone 1 GM/50 ML BAG IV (09:02)
[2022-08-18] MEDS: DULoxetine Hcl 60 MG Capsule 120 MG PO (09:17)
[2022-08-18] MEDS: clonazePAM 0.5 MG Tablet PO ×3 (09:17→21:16)
[2022-08-18] MEDS: Gabapentin 400 MG Capsule 800 MG PO ×4 (09:17→21:09)
[2022-08-18] MEDS: Tolterodine Tartrate 2 MG CAP.SA PO (09:17)
[2022-08-18] MEDS: Baclofen 10 MG Tablet 30 MG PO ×4 (09:17→21:09)
[2022-08-18] MEDS: Ketorolac 15 MG/ML Vial 30 MG IV ×2 (09:18→23:12)
[2022-08-18] MEDS: Cilostazol 50 MG Tablet PO ×2 (09:19→21:10)
[2022-08-18] MEDS: Ipratropium/Albuterol Sulfate 3 ML AMPUL.NEB INHALATION ×2 (10:07→17:02)
--- NOTE | 2022-08-18 12:48 | NURSING ---
PICC line order d/c. pt did not get it placed on 08/17/22 when it was ordered due to back log. pt reaccessed by Dr. Franks and Dr. Ferrell and pt doses not require PICC line at this time.
[2022-08-18 14:14] LABS: Vancomycin, Trough Level 13.8 ug/mL (5.0-15.0)
--- NOTE | 2022-08-18 16:15 | PCM.CONS.GEN ---
Assessment & Plan Assessment/Plan (1) C. difficile colitis: (2) Acute respiratory failure with hypoxia: PLAN: Here with RSV, strep pneumo pneumonia, enterococcus (+) ucx, and cdiff colitis. No issues with amox in past, has received zosyn here. Will narrow to unasyn for pneumonia and urinary coverage. Ok for home with 3 more days augmentin 875mg bid. No need for picc. Ok for home with po vanc 125mg 4x/day for 14 more days. Will follow, thank you (3) Paraplegia: (4) UTI (urinary tract infection): (5) RSV (respiratory syncytial virus infection): HPI Consult Data Date of Consult: 08/18/22 HPI Narrative Reason for Consultation: pneumonia HPI Narrative: ROGELIO MARRERO, is a 42 F with paraplegia, h/o IVDU, presented with several days cough, fever, wheezing, dyspnea. Has suprapubic cath, no changes seen in urine. No abd pain. Reports about a month of diarrhea, was dx with colitis a month ago, but cdiff not checked. Diarrhea continued until admit here, cdiff was (+). Admitted on ceftriaxone, iv vanc, and po vanc. Feeling better. Full ROS performed and neg except as noted above. [facility] Medical History Anxiety and depression Chronic indwelling Charles catheter DVT (deep venous thrombosis) Esophageal reflux Hepatitis Irregular heart beat Kidney stones Neurogenic bladder Paraplegia Spinal abscess Home Medications baclofen 20 mg tablet 30 mg PO 4X/DAY muscle spasm 10/19/19 [History Last Taken 08/15/22] duloxetine 60 mg capsule,delayed release 120 mg PO DAILY depression 10/19/19 [History Last Taken 08/15/22] oxybutynin chloride 10 mg tablet,extended release 24 hr 10 mg PO DAILY bladder 12/24/19 [History Last Taken 08/15/22] gabapentin 100 mg capsule 800 mg PO 4X/DAY paraplegia/nerve pain 05/02/20 [History Last Taken 08/15/22] midodrine 10 mg tablet 10 mg PO PRN PRN Hypotension 05/09/20 [History Last Taken 06/29/20] clonazepam 0.5 mg tablet 0.5 mg PO TID PRN Anxiety #9 tabs 07/05/20 [Rx Last Taken 08/15/22] cilostazol 50 mg tablet 50 mg PO BID antiplatelet 08/15/22 [History Last Taken 08/15/22] meloxicam 15 mg tablet 15 mg PO DAILY spasms 08/15/22 [History Last Taken 08/15/22] trazodone 50 mg tablet 50 mg PO QHS PRN Sleep 08/15/22 [History Last Taken Unknown] Allergy/AdvReac Type Severity Reaction Status Date / Time Penicillins AdvReac PT UNSURE Verified 08/15/22 10:26 OF REACTION Family History Other Multiple sclerosis Social History household members: none Smoking Status: Current every day smoker tobacco type: cigarettes alcohol intake: current Alcohol type: other substance use type: does not use Physical Exam Const alert, oriented x3 and no apparent distress General Appearance: cooperative HEENT normocephalic and head/scalp atraumatic Eyes PERRL and EOMs intact bilaterally Neck supple and No nodes Resp Auscultation: wheezes Cardio regular rate and regular rhythm GI soft to palpation, non-tender and non-distended GI Narrative: no rash around suprapubic cath Extremity General Extremity: Negative for edema Skin no rashes or lesions noted Neuro CN's II-XII intact bilaterally Neuro Narrative: paraplegic Lab / Micro Data Attestation: I reviewed the patient's lab results. Result Diagrams: 08/18/22 03:45 08/18/22 03:45 Labs: Laboratory Results - last 24 hr 08/18/22 03:45: WBC 10.8, RBC 3.91 L, Hgb 8.9 L, Hct 29.6 L, MCV 75.7 L, MCH 22.8 L, MCHC 30.1 L, RDW Std Deviation 46.0 H, RDW Coeff of Domonique 16.8 H, Plt Count 213, MPV 10.2, Immature Gran % (Auto) 0.600, Neut % (Auto) 76.6 H, Lymph % (Auto) 16.2 L, [place] % (Auto) 5.1, Eos % (Auto) 0.9, Baso % (Auto) 0.6, Absolute Neuts (auto) 8.3 H, Absolute Lymphs (auto) 1.75, Nucleated RBC % 0 08/18/22 03:45: Sodium 142, Potassium 3.1 L, Chloride 112 H, Carbon Dioxide 26.0, Anion Gap 4 L, BUN 11, Creatinine 0.34 L, Estim Creat Clear Calc 259.19, Est GFR (MDRD) Af Amer 278, Est GFR (MDRD) Non-Af 229, BUN/Creatinine Ratio 32.8 H, Glucose 113 H, Calcium 7.2 L, Total Bilirubin 0.20, AST 8 L, ALT 14, Alkaline Phosphatase 92, Total Protein 5.6 L, Albumin 2.0 L, Globulin 3.6, Albumin/Globulin Ratio 0.6 L 08/18/22 13:50: Vancomycin Trough 13.8 Micro: Microbiology 08/15/22 22:50 Interface Orders Gram Stain - Final 08/15/22 22:50 Interface Orders Respiratory Culture - Final Streptococcus pneumoniae
[2022-08-18] MEDS: Acetaminophen 325 MG Tablet 650 MG PO (21:16)
[2022-08-18] MEDS: 0.9% Saline Lock 10 ML Syringe IV (23:13)
[2022-08-19 03:30] VITALS: BP 132/99; PULSE 80; RESP 18; TEMP 36.6; O2SAT 93
[2022-08-19] MEDS: Vancomycin 125 MG/5 ML Susp PO.SYRINGE PO ×2 (05:06→12:01)
[2022-08-19] MEDS: 0.9% Normal Saline 1,000 ML 100 ML IV (05:09)
[2022-08-19] MEDS: Ipratropium/Albuterol Sulfate 3 ML AMPUL.NEB INHALATION (07:15)
[2022-08-19 07:18] VITALS: PULSE 71; RESP 18; O2SAT 92
[2022-08-19 09:26] VITALS: BP 124/89; PULSE 85; RESP 18; TEMP 36.5; O2SAT 95
[2022-08-19] MEDS: Gabapentin 400 MG Capsule 800 MG PO ×3 (09:34→19:46)
[2022-08-19] MEDS: Baclofen 10 MG Tablet 30 MG PO ×3 (09:35→19:46)
[2022-08-19] MEDS: Tolterodine Tartrate 2 MG CAP.SA PO (09:35)
[2022-08-19] MEDS: Cilostazol 50 MG Tablet PO ×2 (09:35→19:45)
[2022-08-19] MEDS: DULoxetine Hcl 60 MG Capsule 120 MG PO (09:35)
--- NOTE | 2022-08-19 09:41 | PCM.DC ---
Discharge Instructions Diet Discharge Diet: No restrictions Activity Discharge Activity: Return to Normal Activity Follow Up Care Test Results: Test results from this visit will be discussed in further detail at your follow-up appointment, if applicable. Discharge Plan Admission Admit Date/Time: 08/15/22 17:21 Primary Reason for Your Visit: Acute hypoxia/pneumonia/UTI Attending Provider: Jeanne Franks Primary Care Provider: Qamar Zimmer Consulting Providers: Elier Pugh ; Bobby Gregorio ; Pradeep Ferrell ; Jone Carson ; Kanu Rogers ; Nicholas Thompson ; Darrick Hwang ; Domi Almanzar [employer]GRAM[employer] ANALYST Instructions Additional Instructions / Restrictions: Note of your medications. You are being discharged home on antibiotics. Follow-up with your primary care doctor within 1 week. You need repeat blood work within 1 week to follow-up on your blood electrolytes and kidney function Discharge Orders/Prescriptions Prescriptions: New amoxicillin-pot clavulanate [Augmentin] 500-125 mg tablet 1 tab PO BID 3 Days Qty: 6 0RF vancomycin [Vancocin] 125 mg capsule 125 mg PO Q6H 14 Days Qty: 56 0RF Continued baclofen 20 MG tablet 30 mg PO 4X/DAY Label Comments: Take 1 tablet by mouth 4 (four) times a day. duloxetine 60 MG capsule,delayed release(DR/EC) 120 mg PO DAILY Label Comments: Take 2 capsules by mouth daily. oxybutynin chloride 10 MG tablet extended release 24hr 10 mg PO DAILY gabapentin 100 MG capsule 800 mg PO 4X/DAY midodrine 10 MG tablet 10 mg PO PRN PRN (Reason: Hypotension) clonazepam 0.5 MG tablet 0.5 mg PO TID PRN (Reason: Anxiety) Qty: 9 0RF cilostazol 50 mg tablet 50 mg PO BID Label Comments: Take 1 tablet by mouth twice daily. meloxicam 15 mg tablet 15 mg PO DAILY Label Comments: Take 1 tablet by mouth once daily. With food. trazodone 50 mg Tablet 50 mg PO QHS PRN (Reason: Sleep) Referrals / Follow Up: Qamar Zimmer MD [Primary Care Provider] - In 1 Week Disposition Disposition (needs filled in before D/C Order can be placed): Home, Self Care
--- NOTE | 2022-08-19 09:47 | DS.PCM_ITS ---
Providers Date of Admission: 08/15/22 Date of Discharge: 08/19/22 Primary Care Physician: Dr. Qamar Zimmer MD Consultations 08/16/22 10:35 Consult: Project/Production Manager Imaging / Pulmonary Medicine Routine Consulting Provider: [facility] Reason for Consult: Resp failure/rsv EMERGENT Consult: No Notified: Yes Date Notified: 08/16/22 Time Notified: 11:10 Method of Notification: Text 08/16/22 10:37 Consult: Gastroenterology Routine Consulting Provider: Bobby Gregorio Reason for Consult: Chronic diarrhea EMERGENT Consult: No Notified: Yes Date Notified: 08/16/22 Time Notified: 11:06 Method of Notification: Text 08/17/22 13:09 Consult: Infectious Disease Routine Consulting Provider: Pradeep Ferrell Reason for Consult: Enterococcus UTI EMERGENT Consult: No Notified: Yes Date Notified: 08/17/22 Time Notified: 13:10 Method of Notification: Text Reason For Visit: HYPOXIA FROM VIRAL URI Diagnosis Discharge Diagnosis (1) C. difficile colitis: Status: Acute Code(s): A04.72 - Enterocolitis due to Clostridium difficile, not specified as recurrent (2) Acute respiratory failure with hypoxia: Status: Acute Code(s): J96.01 - Acute respiratory failure with hypoxia (3) Paraplegia: Status: Chronic Code(s): G82.20 - Paraplegia, unspecified (4) UTI (urinary tract infection): Status: Acute Code(s): N39.0 - Urinary tract infection, site not specified (5) RSV (respiratory syncytial virus infection): Status: Acute Code(s): B33.8 - Other specified viral diseases Plan 1. Acute hypoxic respiratory failure secondary to RSV pneumonia/strep pneumoniae pneumonia 2. Acute Enterococcus UTI due to suprapubic catheter 3. Acute C. diff in a chronic C. diff colonizer, 4. 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 Anxiety/depression Medications at Discharge Home Medications baclofen 20 mg tablet 30 mg PO 4X/DAY muscle spasm 10/19/19 duloxetine 60 mg capsule,delayed release 120 mg PO DAILY depression 10/19/19 oxybutynin chloride 10 mg tablet,extended release 24 hr 10 mg PO DAILY bladder 12/24/19 gabapentin 100 mg capsule 800 mg PO 4X/DAY paraplegia/nerve pain 05/02/20 midodrine 10 mg tablet 10 mg PO PRN PRN Hypotension 05/09/20 clonazepam 0.5 mg tablet 0.5 mg PO TID PRN Anxiety #9 tabs 07/05/20 cilostazol 50 mg tablet 50 mg PO BID antiplatelet 08/15/22 meloxicam 15 mg tablet 15 mg PO DAILY spasms 08/15/22 trazodone 50 mg tablet 50 mg PO QHS PRN Sleep 08/15/22 amoxicillin 500 mg-potassium clavulanate 125 mg tablet (Augmentin) 1 tab PO BID 3 days #6 tabs 08/19/22 vancomycin 125 mg capsule (Vancocin) 125 mg PO Q6H 14 days #56 caps 08/19/22 Hospital Course Operations None Procedures None Summary of Care Provided Minutes Spent on Discharge: 40 Hospital Course: 42-year-old female with past medical history of anxiety/depression, who was recently diagnosed with colitis at an outside hospital and started on Cipro and Flagyl with no improvement in her diarrhea. She has since continued to have loose bowel movements. Patient presented to the emergency room with shortness o f breath. Work-up in the ED showed leukocytosis and hypoxia in the 80s requiring 4 L of oxygen. Patient admitted to a family member with RSV a week prior to admission. CT of the chest was negative for acute PE but showed multiple areas of groundglass opacities and possible infiltrate. Her COVID-19 rapid antigen as well as PCR was negative. Respiratory panel came back positive for RSV. Urine streptococcal antigen was positive. [facility] and managed as acute RSV pneumonia/streptococcal pneumonia with IV ceftriaxone and azithromycin. Azithromycin was later discontinued. Patient's urine cultures came back positive for Enterococcus. IV vancomycin was added. ID was consulted and this was switched to Unasyn. Soon after admission, patient's respiratory status worsened from 4 L of oxygen to use of Airvo more than 55 L FiO2 80%. She was transferred to ICU, loading machine operator/pulmonology was consulted. Patient improved and came down to about 6 L of oxygen. However she became relatively hypotensive and tachycardic. This improved with IV fluids. She continued to improve and was down to 1 L of oxygen. Discharge, patient did not require any oxygen. She was stable on room air. She was discharged on 3 more days of Augmentin as well as 2 weeks of oral vancomycin 4 times a day. She will follow-up with her primary care doctor within 1 week as well as gastroenterology within 2 weeks. Physical Exam Narrative Physical exam: General: Alert, Oriented x3, Cooperative, off oxygen HEENT: Atraumatic Oral: Moist Mucosa Neck: Supple Lungs: Diminished to auscultation Cardiovascular: HS I+II, regular, no murmurs Abdomen: Suprapubic catheter in place bowel Sounds Present, Soft, Non Tender Extremities: No edema Skin: No rashes, No breakdown Neurological: Grossly intact Psych/Mental Status: Appropriate Weight / BMI Weight Weight: 86.3 kg Body Mass Index (BMI) 22.6 ABG / Lab / Microbiology Data Result Diagrams: 08/18/22 03:45 08/18/22 03:45 Laboratory: Laboratory Results - last 24 hr 08/18/22 13:50: Vancomycin Trough 13.8 Microbiology: Microbiology 08/15/22 22:50 Interface Orders Gram Stain - Final 08/15/22 22:50 Interface Orders Respiratory Culture - Final Streptococcus pneumoniae 08/15/22 11:00 Blood Culture (Wb) - Right Wrist Blood Culture - Preliminary No growth in 48 hours. 08/15/22 11:35 Blood Culture (Wb) - Anticubital Left Blood Culture - Preliminary No growth in 48 hours. 08/15/22 11:40 Urine Catheter - Charles Urine Culture - Final Enterococcus faecalis 08/15/22 11:15 Nasal Secretion SARS-CoV-2 Antigen (Rapid) - Final 08/15/22 17:25 Interface Orders Respiratory Panel (PCR) - Final RSV A 08/15/22 13:35 Stool Stool Lactoferrin - Final 08/15/22 13:35 Stool Enteric Bacteriology - Final 08/15/22 13:35 Stool C. difficile GDH Antigen & Toxins - Final 08/15/22 13:35 Stool C. difficile DNA Amplification - Final D/C Instructions Discharge Diet: No restrictions Meaningful Use Info Meaningful Use Diagnoses (Choose all that apply): None applicable Discharge Plan Admission Admit Date/Time: 08/15/22 17:21 Primary Reason for Your Visit: Acute hypoxia/pneumonia/UTI Attending Provider: Jeanne Franks Primary Care Provider: Qamar Zimmer Consulting Providers: Elier Pugh ; Bobby Gregorio ; Pradeep Ferrell ; Jone Carson ; Kanu Rogers ; Nicholas Thompson ; Darrick Hwang ; Domi Almanzar [employer]ANG[employer] IN[employer] Instructions Additional Instructions / Restrictions: Note of your medications. You are being discharged home on antibiotics. Follow-up with your primary care doctor within 1 week. You need repeat blood work within 1 week to follow-up on your blood electrolytes and kidney function Discharge Orders/Prescriptions Prescriptions: New amoxicillin-pot clavulanate [Augmentin] 500-125 mg tablet 1 tab PO BID 3 Days Qty: 6 0RF vancomycin [Vancocin] 125 mg capsule 125 mg PO Q6H 14 Days Qty: 56 0RF Continued baclofen 20 MG tablet 30 mg PO 4X/DAY Label Comments: Take 1 tablet by mouth 4 (four) times a day. duloxetine 60 MG capsule,delayed release(DR/EC) 120 mg PO DAILY Label Comments: Take 2 capsules by mouth daily. oxybutynin chloride 10 MG tablet extended release 24hr 10 mg PO DAILY gabapentin 100 MG capsule 800 mg PO 4X/DAY midodrine 10 MG tablet 10 mg PO PRN PRN (Reason: Hypotension) clonazepam 0.5 MG tablet 0.5 mg PO TID PRN (Reason: Anxiety) Qty: 9 0RF cilostazol 50 mg tablet 50 mg PO BID Label Comments: Take 1 tablet by mouth twice daily. meloxicam 15 mg tablet 15 mg PO DAILY Label Comments: Take 1 tablet by mouth once daily. With food. trazodone 50 mg Tablet 50 mg PO QHS PRN (Reason: Sleep) Referrals / Follow Up: Qamar Zimmer MD [Primary Care Provider] - In 1 Week Bobby Gregorio DO [Med Staff - Active Staff] - Within 2 Weeks Disposition Disposition (needs filled in before D/C Order can be placed): Home, Self Care Charges/Coding Visit Charges Inpatient E&M: 43684 Disch Hosp
--- NOTE | 2022-08-19 10:38 | CASEMGMT ---
RN CM in to discuss discharge needs. Patient denies needs or HHC at discharge. Patient states she will need transport home. ANTONIETTA CM updated [facility] charge nurse.
[2022-08-19] MEDS: clonazePAM 0.5 MG Tablet PO ×2 (11:12→19:46)
[2022-08-19] MEDS: Ensure Clear 120 ML Liquid PO (14:01)
[2022-08-19 14:07] VITALS: BP 122/87; PULSE 78; RESP 18; TEMP 36.7; O2SAT 95
[2022-08-19 20:09] VITALS: BP 122/87; PULSE 78; RESP 18; TEMP 36.7; O2SAT 95
--- NOTE | 2022-08-19 20:43 | NURSING ---
physicians ambulance here at this time to citrus picker patient for transport home
== END 2022-08-19 20:42 | disposition home or self-care (01) | DRG 139 ==
LOC: ED 14:59 → MS3 17:31 → ICU 08-16 16:35 → MS3 08-18 11:11
PROVIDERS: Internal Medicine Critical Care Medicine; Admitting Provider Family Medicine; Emergency Provider Emergency Medicine; PCP Family Medicine; Visit Provider Internal Medicine
DX: J13 Pneumonia due to Streptococcus pneumoniae (principal); J96.01 Acute respiratory failure with hypoxia; A04.72 Enterocolitis due to Clostridium difficile, not specified as recurrent; T83.510A Infection and inflammatory reaction due to cystostomy catheter, initial encounter; G82.20 Paraplegia, unspecified; J84.10 Pulmonary fibrosis, unspecified; J12.1 Respiratory syncytial virus pneumonia; F17.210 Nicotine dependence, cigarettes, uncomplicated; F41.9 Anxiety disorder, unspecified; S22.31XA Fracture of one rib, right side, initial encounter for closed fracture; B97.4 Respiratory syncytial virus as the cause of diseases classified elsewhere; N31.9 Neuromuscular dysfunction of bladder, unspecified; Z20.822 Contact with and (suspected) exposure to COVID-19; Z79.02 Long term (current) use of antithrombotics/antiplatelets; B95.2 Enterococcus as the cause of diseases classified elsewhere; F32.A Depression, unspecified; N39.0 Urinary tract infection, site not specified; N32.89 Other specified disorders of bladder; Z79.899 Other long term (current) drug therapy; Z86.69 Personal history of other diseases of the nervous system and sense organs; Z86.718 Personal history of other venous thrombosis and embolism; Z86.19 Personal history of other infectious and parasitic diseases; X58.XXXA Exposure to other specified factors, initial encounter
CPT/HCPCS: 36415; 71045; 71275; 74177; 80048; 80053; 80076; 80202; 81001; 83605; 83630; 84484; 85025; 87040; 87070; 87077; 87086; 87088; 87177; 87186; 87205; 87209; 87493; 87506; 87633; 87635; 87811; 93005; 94640; 94660; 94667; 94668; 94762; 97110; 97162; 97166; 97530; 97802; 97803; 99285; 99406; J7030; J7050; Q9967; A4216; J0295; U0003; U0005

== ENCOUNTER 2022-10-25 19:57 | Emergency (ER) | payer MEDICAID, SELFPAY ==
[2022-10-25 19:58] VITALS: BP 104/72; PULSE 78; RESP 16; TEMP 36.4; O2SAT 100; BMI 23.6
[2022-10-25] MEDS: Smz/Tmp Ds Tablet 1 TABLET PO (20:49)
--- NOTE | 2022-10-25 20:59 | EDS_ITS ---
HPI History of Present Illness Chief Complaint: Cellulitis Narrative Narrative: 42-year-old female presenting with cellulitis on the right medial aspect of her leg. Its around the knee. She is not having trouble moving the knee joint. She states he thought this was a bug bite that started spreading. Patient noted that earlier today it started draining. Patient does states she has a history of IV drug abuse and also has had abscesses before. She does not know if she has had MRSA. No systemic signs or symptoms. [facility] Medical History Anxiety and depression Chronic indwelling Charles catheter DVT (deep venous thrombosis) Esophageal reflux Hepatitis Irregular heart beat Kidney stones Neurogenic bladder Paraplegia Spinal abscess Home Medications baclofen 20 mg tablet 30 mg PO 4X/DAY muscle spasm 10/19/19 [History Last Taken 08/15/22] duloxetine 60 mg capsule,delayed release 120 mg PO DAILY depression 10/19/19 [History Last Taken 08/15/22] oxybutynin chloride 10 mg tablet,extended release 24 hr 10 mg PO DAILY bladder 12/24/19 [History Last Taken 08/15/22] gabapentin 100 mg capsule 800 mg PO 4X/DAY paraplegia/nerve pain 05/02/20 [History Last Taken 08/15/22] midodrine 10 mg tablet 10 mg PO PRN PRN Hypotension 05/09/20 [History Last Taken 06/29/20] clonazepam 0.5 mg tablet 0.5 mg PO TID PRN Anxiety #9 tabs 07/05/20 [Rx Last Taken 08/15/22] cilostazol 50 mg tablet 50 mg PO BID antiplatelet 08/15/22 [History Last Taken 08/15/22] meloxicam 15 mg tablet 15 mg PO DAILY spasms 08/15/22 [History Last Taken 08/15/22] trazodone 50 mg tablet 50 mg PO QHS PRN Sleep 08/15/22 [History Last Taken Unknown] amoxicillin 500 mg-potassium clavulanate 125 mg tablet (Augmentin) 1 tab PO BID 3 days #6 tabs 08/19/22 [Rx Last Taken Unknown] vancomycin 125 mg capsule (Vancocin) 125 mg PO Q6H 14 days #56 caps 08/19/22 [Rx Last Taken Unknown] sulfamethoxazole 800 mg-trimethoprim 160 mg tablet (Bactrim DS) 1 tab PO BID #20 tabs 10/25/22 [Rx Last Taken Unknown] Allergy/AdvReac Type Severity Reaction Status Date / Time Penicillins AdvReac PT UNSURE Verified 10/25/22 20:01 OF REACTION Family History Other Multiple sclerosis Social History household members: none Smoking Status: Current every day smoker tobacco type: cigarettes alcohol intake: current Alcohol type: other substance use type: does not use ROS ROS ED Constitutional Constitutional ED: Denies chills, fever(s) or sweats Eyes Eyes: Denies blurry vision or change in vision ENT ENT ED: Denies ear pain or sore throat Cardiovascular Cardiovascular: Denies chest pain, palpitations or racing heartbeat Respiratory/Chest Respiratory/Chest: Denies cough, dyspnea or sputum Gastrointestinal Gastrointestinal: Denies abdominal pain, constipation, diarrhea, nausea or vomiting Genitourinary Genitourinary ED: Denies dysuria, hematuria or urinary frequency Musculoskeletal Musculoskeletal: Denies arthralgias, myalgias or neck pain Integumentary Reports abscess and rash; Denies Abrasions Neurologic Neurologic: Denies headache(s), paresthesias or weakness Psychiatric Psychiatric: Denies anxiety, depression, suicidal ideation or suicidal thoughts Endocrine Endocrinology: Denies polydipsia or polyuria EXAM Physical Exam Const Vital Signs: 10/25/22 19:58 Temperature 97.6 F L Temperature Source Temporal Pulse Rate 78 Respiratory Rate 16 Blood Pressure 104/72 Blood Pressure Mean 82 Pulse Ox 100 Oxygen Delivery Method Room Air Positive well nourished General Appearance ED: NAD HEENT Reports moist mucous membranes Eyes PERRL Neck no lymphadenopathy Resp normal respiratory effort Cardio regular rate and regular rhythm GI normal to inspection, nondistended, normoactive bowel sounds Neuro oriented x3 and CN's II-XII intact bilaterally Sensorium / Orientation: alert Skin Skin Narrative: 10 cm x 8 cm area of cellulitis on the right medial aspect of the knee. There is a 1 very small 1 x 1 cm circular area on the medial aspect of the knee which has some scant drainage. I am unable to express any more drainage here and there is no fluctuance. MDM MDM MDM Narrative Medical decision making narrative: Patient presented with cellulitis to the right knee which is been present for couple of days. She has not been on anything for this. She states he is unable to soak this in the bathtub because she has a suprapubic catheter. She is able to apply warm compresses to it. She has not any systemic signs or symptoms. There is a small area on the right knee which is opened and there is a small amount of drainage but I cannot express any more fluid from this and there is no fluctuance and I do not believe she needs an I&D. I will start her on Bactrim for home. She is counseled to use warm compresses. The wound has been marked. Patient does report she has a history of C. difficile. We did have a conversation about risk benefits of antibiotics however I do believe she needs antibiotics at this time. Patient to follow-up with PCP to ensure resolution. Impression: 1. Right knee Discharge Plan Triage Chief Complaint: Cellulitis ED Provider: Porter Colrey Dx/Rx/DC Orders Instructions: ED Abscess Antibiotic Treatment Only Prescriptions: New sulfamethoxazole-trimethoprim [Bactrim DS] 800-160 mg tablet 1 tab PO BID Qty: 20 0RF No Action baclofen 20 MG tablet 30 mg PO 4X/DAY Label Comments: Take 1 tablet by mouth 4 (four) times a day. duloxetine 60 MG capsule,delayed release(DR/EC) 120 mg PO DAILY Label Comments: Take 2 capsules by mouth daily. oxybutynin chloride 10 MG tablet extended release 24hr 10 mg PO DAILY gabapentin 100 MG capsule 800 mg PO 4X/DAY midodrine 10 MG tablet 10 mg PO PRN PRN (Reason: Hypotension) clonazepam 0.5 MG tablet 0.5 mg PO TID PRN (Reason: Anxiety) Qty: 9 0RF cilostazol 50 mg tablet 50 mg PO BID Label Comments: Take 1 tablet by mouth twice daily. meloxicam 15 mg tablet 15 mg PO DAILY Label Comments: Take 1 tablet by mouth once daily. With food. trazodone 50 mg Tablet 50 mg PO QHS PRN (Reason: Sleep) amoxicillin-pot clavulanate [Augmentin] 500-125 mg tablet 1 tab PO BID 3 Days Qty: 6 0RF vancomycin [Vancocin] 125 mg capsule 125 mg PO Q6H 14 Days Qty: 56 0RF Primary Care Provider: Qamar Zimmer Referrals: Qamar Zimmer MD [Primary Care Provider] - Disposition Disposition: Home, Self Care
== END 2022-10-26 01:44 | disposition home or self-care (01) ==
PROVIDERS: Emergency Provider Student in an Organized Health Care Education/Training Program; PCP Family Medicine; Visit Provider Student in an Organized Health Care Education/Training Program
DX: L03.115 Cellulitis of right lower limb (principal); F17.210 Nicotine dependence, cigarettes, uncomplicated
CPT/HCPCS: 99284; A4216

== ENCOUNTER 2023-05-20 22:36 | Inpatient (IN) | payer MEDICAID, SELFPAY ==
[2023-05-20 22:37] VITALS: BP 92/61; PULSE 101; RESP 18; TEMP 37; O2SAT 100; BMI 22.3
[2023-05-20 22:39] VITALS: BP 92/61; PULSE 101; RESP 18; TEMP 37; O2SAT 100
--- NOTE | 2023-05-20 23:00 | RAD_ITS ---
STUDY: X-RAY - RIGHT KNEE REASON FOR EXAM: Female, 42 years old. ? osteo TECHNIQUE: 3 view(s) of the knee. COMPARISON: 05/10/2020 FINDINGS: Healed fracture of the distal shaft of the femur with an intramedullary leroy. Normal visualized proximal tibia and fibula. Normal proximal tibiofibular articulation. No bony destruction to suggest osteomyelitis. Normal medial femorotibial compartment. Normal lateral femorotibial compartment. Normal patellofemoral articulation. The soft tissue structures are unremarkable. RAD/Knee 3 Views IMPRESSION: No radiographic evidence of osteomyelitis. Electronically Signed: Renaldo Abrams MD at 23:41 EDT ,
[2023-05-20 23:41] LABS: Mucous, Urine 0 SEEN /hpf (<or=2+)
[2023-05-20] MEDS: 0.9% Normal Saline 1,000 ML 999 ML IV (23:42)
[2023-05-20 23:44] VITALS: BP 88/53; PULSE 79; RESP 16; TEMP 36.8; O2SAT 97
[2023-05-20 23:47] LABS: Color, Urine Yellow (Yellow); Glucose, Dipstick Normal (Normal); Ketone-Dipstick 5 mg/dl (Negative); Leukocyte Esterase-Dipstick 100 /ul (Negative); Nitrite-Dipstick Negative (Negative); Occult Blood-Urine 10 /ul (Negative); Protein-Dipstick 30 mg/dl (Negative); Specific Gravity, Urine 1.015 (1.002-1.030); Urine Clarity Clear (Clear); Urine Urobilinogen 4 mg/dl (Normal)
[2023-05-20 23:52] LABS: Urine Bilirubin Dipstick 1 mg/dL (Negative)
[2023-05-20 23:54] LABS: Amorphous Sediment 2+; Bacteria 4+ /hpf (None Seen); Red Blood Cells-Urine 0-5 SEEN /hpf (0-5); Squamous Epithelial Cells - UA 0-5 SEEN /hpf (5-10); White Blood Cells 10-25 SEEN /hpf (0-5)
[2023-05-20 23:58] VITALS: BP 109/69; PULSE 79; RESP 16; TEMP 36.9
[2023-05-21 00:04] LABS: Absolute Lymphocyte Count 2.18 X10^3/uL (0.83-4.51); Absolute Neutrophil Count 9.2 X10^3/uL (2.0-7.7); Basophil# 0.04 X10^3/uL; Basophil% 0.3 % (0-1); Eosinophil# 0.11 X10^3/uL; Eosinophils% 0.9 % (0-5); Hematocrit 30.3 % (37-47); Hemoglobin 9.2 g/dL (12.0-15.0); Lymphocyte # 2.18 X10^3/ul (0.83-4.51); Lymphocyte % 17.2 % (19-41); Mean Corp Hgb Conc 30.4 g/dL (32-36); Mean Corpuscular Hgb 24.1 pg (27.0-32.0); Mean Corpuscular Volume 79.3 fL (81-99); Mean Platelet Vol. 10.4 fl (6.2-12.0); Monocyte# 0.97 X10^3/uL; Monocyte% 7.7 % (0-10); NRBC Flagged by Analyzer 0 % (0-5); Neutrophil # 9.15 X10^3/uL (2.7-7.7); Neutrophil % 72.4 % (47-70); Platelet Count 201 K/mm3 (150-450); RBC Distribution Width CV 15.9 % (11.6-14.6); Red Blood Count 3.82 M/mm3 (4.2-5.4); White Blood Count 12.6 K/mm3 (4.4-11.0)
[2023-05-21 00:17] LABS: Anion Gap 2 (5-15); BUN 11 mg/dL (7-18); BUN/Creat Ratio 22.1 RATIO (10-20); Calcium,Total 7.7 mg/dL (8.5-10.1); Chloride 110 mmol/L (98-107); EST Glomerular Filtration Rate 145 mL/min (>60); Est Glom Filt Rate - Afr Amer 175 mL/min (>60); Estimated Creatinine Clearance 176.25 ml/min; Glucose 106 mg/dL (74-106); Potassium 3.4 mmol/L (3.5-5.1); Sodium Level 138 mmol/L (136-145)
[2023-05-21 00:19] LABS: Lactic Acid 0.6 mmol/L (0.4-1.9)
[2023-05-21 00:47] VITALS: BP 97/47; PULSE 78; RESP 16; TEMP 36.8; O2SAT 98
--- NOTE | 2023-05-21 01:32 | HP.PCM.HOS_ITS ---
HPI - General General Date of Admission: 05/21/23 Date of Service: 05/21/23 Chief Complaint: Myalgia, cloudy urine. 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 Work-up in the ED included T98.2, heart rate 78, BP 97/47, respiratory rate 16, 98% on room air, CBC with WBC 12.6, hemoglobin 9.2, MCV 79.3, platelet 201 with left shift, BMP with potassium 3.4, chloride 110, BUN/creatinine 11/0.50, lactic acid 0.6, CRP 51.60, urinalysis with specific gravity 1.015, ke tone 5, occult blood 10, nitrite negative, leukocyte Estrace 100 with 10-25 urine WBCs with 4+ urine bacteria, urine culture pending per ED, blood culture x2 pending per ED, plain film of the right knee with no acute findings. In the ED patient ministered 1 L normal saline as well as IV vancomycin. FOR[facility]LY [facility], LATER [facility] Medical History Anxiety and depression Chronic hypotension Chronic indwelling Snowden catheter DVT (deep venous thrombosis) Esophageal reflux Hepatitis C History of intravenous drug abuse Kidney stones Neurogenic bladder Paraplegia Spinal abscess Home Medications baclofen 20 mg tablet 30 mg PO 4X/DAY muscle spasm 10/19/19 [History Last Taken 05/20/23] duloxetine 60 mg capsule,delayed release 120 mg PO DAILY depression 10/19/19 [History Last Taken 05/20/23] oxybutynin chloride 10 mg tablet,extended release 24 hr 10 mg PO DAILY bladder 12/24/19 [History Last Taken 05/20/23] gabapentin 100 mg capsule 800 mg PO 4X/DAY paraplegia/nerve pain 05/02/20 [History Last Taken 05/20/23] clonazepam 0.5 mg tablet 0.5 mg PO TID PRN Anxiety #9 tabs 07/05/20 [Rx Last Taken 05/20/23] cilostazol 50 mg tablet 50 mg PO BID antiplatelet 08/15/22 [History Last Taken 05/20/23] meloxicam 15 mg tablet 15 mg PO DAILY spasms 08/15/22 [History Last Taken 05/20/23] Allergy/AdvReac Type Severity Reaction Status Date / Time Penicillins AdvReac PT UNSURE Verified 10/25/22 20:01 OF REACTION Family History (Updated 05/21/23 @ 01:[address] Ethel De Los Santos MD) Mother Multiple sclerosis other (Patient does not know any of her paternal family history.) Surgical History (Updated 05/21/23 @ 01:[address] Ethel De Los Santos MD) History of suprapubic catheter History of surgery on lower extremity Hx of spinal surgery S/P debridement Social History (Updated 05/21/23 @ 01:[address] Ethel De Los Santos MD) household members: none Smoking Status: Current every day smoker tobacco type: cigarettes Smoking packs per day: 0.5 Smoking cigarettes per day: 10.0 alcohol intake: current Alcohol type: other substance use type: former substance user Date of last use: Prior history of IV drug abuse with heroin and methamphetamine. ROS ROS Narrative Admission Review of Systems: CONSTITUTIONAL: No weight loss, fever, chills, + weakness or fatigue. HEENT: Eyes: No visual loss, blurred vision, double vision or yellow sclerae. Ears, Nose, Throat: No hearing loss, sneezing, congestion, runny nose or sore throat. SKIN: + Various abrasions, possibly picked regions, healed prior heel ulcerations/hx decubitous ulcers, R anterior distal thigh with erythematous region with raised ballotable area concerning for an abscess. CARDIOVASCULAR: No chest pain, chest pressure or chest discomfort, palpitations, edema, orthopnea, syncopal events. RESPIRATORY: No shortness of breath, cough or sputum, wheezing, hemoptysis. GASTROINTESTINAL: + anorexia. No nausea, vomiting or diarrhea, abdominal pain, melena, BRBPR. GENITOURINARY: + Chronic suprapubic catheter in place with cloudy appearing urine, bladder spasm, neurogenic bladder. NEUROLOGICAL: + Chronic lower extremity spasms, paraplegia, status post spinal abscess with paraplegia following. No headache, dizziness, syncope, seizure. MUSCULOSKELETAL: + muscle, back pain, joint pain or stiffness. HEMATOLOGIC: + anemia, bleeding or bruising. LYMPHATICS: No enlarged nodes. No history of splenectomy. PSYCHIATRIC: + history of depression or anxiety. ENDOCRINOLOGIC: No reports of sweating, cold or heat intolerance. No polyuria or polydipsia. ALLERGIES: No history of asthma, hives, eczema or rhinitis. Vital Signs Vital Signs Vital Signs: 05/20/23 22:37 05/20/23 22:39 05/20/23 23:44 Temperature 98.6 F 98.6 F 98.2 F Temperature Source Oral Oral Oral Pulse Rate 101 H 101 H 79 Respiratory Rate 18 18 16 Blood Pressure 92/61 92/61 88/53 L Blood Pressure Mean 71 71 64 Pulse Ox 100 100 97 Oxygen Delivery Method Room Air Room Air Room Air 05/20/23 23:58 05/21/23 00:47 Temperature 98.4 F 98.2 F Temperature Source Oral Oral Pulse Rate 79 78 Respiratory Rate 16 16 Blood Pressure 109/69 97/47 L Blood Pressure Mean 82 63 Pulse Ox 98 Oxygen Delivery Method Room Air Weight Weight: 169 lb 5.04 oz Body Mass Index (BMI) 22.3 Physical Exam Narrative Physical Examination: General: Awake, alert, oriented x 3 and cooperative, laying in the ED bed, fatigued appearing. Skin: Normal color, normal turgor, no icterus, no cyanosis except for abrasions, appearance of picked region, healed prior noted heel ulcers/decubitus ulcers, right anterior thigh with erythematous region, increased warmth and small region of induration as well as blot ability with the appearance of an abscess. HEENT: AT/NC, EOMI, PERRLA, mildly dry MM, no carotid bruits or JVD noted. Lungs: Mildly diminished, greater bases, appropriate effort, no rales, ronchi or wheezing. Heart: Regular rate and rhythm; no gallop, rub audible. Abdomen: Soft, NTTP, ND, normal BS, no HSM, suprapubic catheter in place with mild drainage around the catheter. Extremities: No cyanosis, clubbing, or edema, see skin. Neurological: Patient awake, alert, oriented as noted, cognitive function intact; pupils equally reactive to light and accommodation, cranial nerves grossly normal, moving all 4 extremities but primarily spasticity, uncontroll able with paraplegia following cervical spinal abscess status post intervention, strength moderately to severely global decrease secondary to acute presentation and underlying comorbidities. Psychiatric: Affect appears fatigued, no acute evidence of depressive or anxiety feelings. Results Lab / Micro Data 05/20/23 23:40 05/20/23 23:40 Labs: Laboratory Results - last 24 hr 05/20/23 23:35: Urine Color Yellow, Urine Clarity Clear, Urine pH 8.0, Ur Specific [place] 1.015, Urine Protein 30 H, Urine Glucose (UA) Normal, Urine Ketones 5 H, Urine Occult Blood 10 H, Urine Nitrite Negative, Urine Bilirubin 1 H, Urine Urobilinogen 4 H, Ur Leukocyte Esterase 100 H, Urine RBC 0-5 SEEN, Urine WBC 10-25 SEEN, Ur Squamous Epith Cells 0-5 SEEN, Amorphous Sediment 2+, Urine Bacteria 4+, Urine Mucus 0 SEEN 05/20/23 23:40: WBC 12.6 H, RBC 3.82 L, Hgb 9.2 L, Hct 30.3 L, MCV 79.3 L, MCH 24.1 L, MCHC 30.4 L, RDW Std Deviation 46.0 H, RDW Coeff of Domonique 15.9 H, Plt Count 201, MPV 10.4, Immature Gran % (Auto) 1.500 H, Neut % (Auto) 72.4 H, Lymph % (Auto) 17.2 L, [place] % (Auto) 7.7, Eos % (Auto) 0.9, Baso % (Auto) 0.3, Absolute Neuts (auto) 9.2 H, Absolute Lymphs (auto) 2.18, Nucleated RBC % 0, Sodium 138, Potassium 3.4 L, Chloride 110 H, Carbon Dioxide 26.0, Anion Gap 2 L, BUN 11, Creatinine 0.50 L, Estim Creat Clear Calc 176.25, Est GFR (MDRD) Af Amer 175, Est GFR (MDRD) Non-Af 145, BUN/Creatinine Ratio 22.1 H, Glucose 106, Lactic Acid 0.6, Calcium 7.7 L, C-React Prot Ext Range 51.60 H Radiology Impression Knee X-Ray 05/20/23 23:00 IMPRESSION: No radiographic evidence of osteomyelitis. 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 #1. RL Extremity Cellulitis with Suspected abscess: Will admit to [facility], maintain on IV Levaquin and IV vancomycin given MRSA history and suspected abscess, discussed with ED and planned I+D, will obtain Wound Cx and Wound MRSA PCR, plan repeat CBC in AM, continue affected extremity elevation above heart when seated and in bed, monitor erythema outline with VS checks, low threshold to obtain duplex US to assure no DVT concurrently as does have history prior of VTE, Bld Cx x 2 pending per ED. #2. Possible Acute Complicated UTI with chronic suprapubic catheter versus Chronic Colonization secondary to #5: Presentation likely secondary to #1 but she did report concern for foul appearing urine, UA upon ED evaluation remarkable, pending UCx, continue IVFs, monitor I/Os, as noted above maintain on IV vancomycin given MRSA history but also concern for abscess thus given allergies limited w/ usage IV Levaquin but given c-diff history/colonization would plan to de-escalation ntibiotic therapies as able pending sensitivities and speciation. Bld cx x 2 obtained in the ED. #3. Hypokalemia: Admission K+ 3.4, magnesium level requested, supplementation given, repeat level in AM. #4. Chronic microcytic anemia: Admission hemoglobin 9.2, baseline hemoglobin noted most recently 08/18/2022 8.9 but has vacillated, will continue to trend, continue iron supplementation and encourage follow-up as previously in the past had necessitated IV Venofer. #5. History of spinal abscess with paraplegia, chronic decubitus ulcers/wounds requiring previous debridements, chronic neurogenic bladder with chronic suprapubic catheter: Patient with history of spinal abscess with now paraplegia with neurogenic bladder with suprapubic catheter, continue home baclofen, clonazepam, gabapentin home regimen. Frequent position changes, barrier cream, PT, OT, case management consultations for discharge planning. #6. Chronic hypotension: We will continue judicious fluids as well as Florinef in addition to as needed midodrine although clarifying regimen, if necessary may hold sedated regimen. #7. Anxiety and Depression: We will continue home Klonopin, duloxetine regimen. #8. History of polysubstance abuse, history of IV drug abuse with Hepatitis C: Encourage continued outpatient follow-up with infectious disease, UDS pending, encourage continued clean status. From discussion with patient she has never sought evaluation for possible treatment/follow-up for her hepatitis C. Strongly encouraged her to follow-up with ID outpatient, mentioned Dr. Ferrell. #9. Tobacco Abuse: Encouraged cessation, inpatient consultation per RT, NR if desired. #10. History C. difficile colitis/conization: Given usage of antibiotic therapy will place on lactobacillus regimen, monitor stool output and low threshold to assess for C. difficile if concern arises. Given unfortunate penicillin allergy using Levaquin and vancomycin but would plan to very quickly de-escalate as sensitivities arise or discontinue if appropriate. #11. DVT prophylaxis: Lovenox. Charges/Coding Visit Charges Inpatient E&M: 41824 Init Hosp L3
--- NOTE | 2023-05-21 01:47 | EDS_ITS ---
HPI History of Present Illness Chief Complaint: Complaint Informant: patient and family Narrative Narrative: Patient is a 42-year-old female with past medical history of IV drug abuse leading to cervical spinal abscess which has led to paraplegia. She has a ch ronic suprapubic catheter. She reports that over the past 1 to 2 days she has noticed small lesions on her leg that she will pop. She states that she felt some discomfort in her right upper thigh yesterday and today noticed a small lesion there that she ruptured. She states this time past the area became more swollen and red and she developed fatigue and muscle aches and has concern for infection and therefore comes in for evaluation [facility] Medical History Anxiety and depression Chronic hypotension Chronic indwelling Charles catheter DVT (deep venous thrombosis) Esophageal reflux Hepatitis C History of intravenous drug abuse Kidney stones Neurogenic bladder Paraplegia Spinal abscess Home Medications baclofen 20 mg tablet 30 mg PO 4X/DAY muscle spasm 10/19/19 [History Last Taken 05/20/23] duloxetine 60 mg capsule,delayed release 120 mg PO DAILY depression 10/19/19 [History Last Taken 05/20/23] oxybutynin chloride 10 mg tablet,extended release 24 hr 10 mg PO DAILY bladder 12/24/19 [History Last Taken 05/20/23] gabapentin 100 mg capsule 800 mg PO 4X/DAY paraplegia/nerve pain 05/02/20 [History Last Taken 05/20/23] clonazepam 0.5 mg tablet 0.5 mg PO TID PRN Anxiety #9 tabs 07/05/20 [Rx Last Taken 05/20/23] cilostazol 50 mg tablet 50 mg PO BID antiplatelet 08/15/22 [History Last Taken 05/20/23] meloxicam 15 mg tablet 15 mg PO DAILY spasms 08/15/22 [History Last Taken 05/20/23] Allergy/AdvReac Type Severity Reaction Status Date / Time Penicillins AdvReac PT UNSURE Verified 10/25/22 20:01 OF REACTION Family History Mother Multiple sclerosis Surgical History History of suprapubic catheter History of surgery on lower extremity Hx of spinal surgery S/P debridement Social History household members: none Smoking Status: Current every day smoker tobacco type: cigarettes Smoking packs per day: 0.5 Smoking cigarettes per day: 10.0 alcohol intake: current Alcohol type: other substance use type: former substance user Date of last use: Prior history of IV drug abuse with heroin and methamphetamine. ROS ROS ED Constitutional Constitutional ED: Denies chills or fever(s) ENT ENT ED: Denies sore throat Cardiovascular Cardiovascular: Denies chest pain Respiratory/Chest Respiratory/Chest: Denies cough or dyspnea Gastrointestinal Gastrointestinal: Denies abdominal pain, diarrhea, nausea or vomiting Musculoskeletal Musculoskeletal: Reports myalgias Integumentary Reports abscess and rash Neurologic Neurologic: Reports paresthesias; Denies headache(s) Hematologic/Lymphatic Hematologic/Lymphatic: Denies easy bleeding or easy bruising EXAM Physical Exam Const Vital Signs: 05/20/23 22:37 05/20/23 22:39 05/20/23 23:44 Temperature 98.6 F 98.6 F 98.2 F Temperature Source Oral Oral Oral Pulse Rate 101 H 101 H 79 Respiratory Rate 18 18 16 Blood Pressure 92/61 92/61 88/53 L Blood Pressure Mean 71 71 64 Pulse Ox 100 100 97 Oxygen Delivery Method Room Air Room Air Room Air 05/20/23 23:58 05/21/23 00:47 Temperature 98.4 F 98.2 F Temperature Source Oral Oral Pulse Rate 79 78 Respiratory Rate 16 16 Blood Pressure 109/69 97/47 L Blood Pressure Mean 82 63 Pulse Ox 98 Oxygen Delivery Method Room Air Positive well nourished and well developed General Appearance ED: well developed HEENT Reports moist mucous membranes Eyes PERRL and EOMs intact bilaterally General Eye ED: Negative for scleral icterus Neck supple Neck Narrative: No nuchal rigidity or meningeal signs Resp normal respiratory effort and clear to auscultation bilaterally Cardio regular rate and regular rhythm Rate: other Other Details: Radial pulses are plus 2 out of 4 bilaterally are equal and symmetric GI normal to inspection, nondistended, normoactive bowel sounds, non-tender, non- distended and no masses Auscultation: normoactive bowel sounds Palpation: soft Narrative: Patient has a suprapubic catheter in place and the insertion site looks clean dry and intact without secondary changes to suggest infection. Extremity Extremity Narrative: Along the anterior aspect of the right distal thigh just above the knee there is a asymmetric area of swelling with erythema and warmth that is approximately 5 x 3 cm in size. In the center of this is a small vesicular lesion draining purulent fluid. No meningitic streaking noted. Neuro oriented x3 and CN's II-XII intact bilaterally Sensorium / Orientation: alert Psych mental status grossly normal Skin Skin Narrative: Soft tissue changes to the right anterior distal thigh as documented above MDM MDM MDM Narrative Medical decision making narrative: Patient presented to the ER afebrile. Blood pressure was borderline hypotensive but she has a past medical history of chronic hypotension. Patient had concern for UTI but with a chronic suprapubic catheter this is most likely colonization. As UTI still within the differential however a urine sample be obtained and sent for culture. However as the thigh has increased redness warmth and drainage which was not present recently this is consistent with abscess with cellulitis. As she has possibility of also osteomyelitis and x-ray was ordered which revealed no bony involvement. Labs showed elevation of the white count of 12.6 but no lactic acidosis the CRP is also elevated consistent with an inflammatory process. Based on the patient's poor health I do feel she would benefit from IV antibiotics and therefore medicine was contacted. Medicine evaluated the patient and they do agree that she will require admission at this time based on her complex past medical history and new onset infection. The area was incised and drained and a culture was obtained based on her history of previous MRSA. However as she is hemodynamically stable without signs of septicemia she will be admitted to the general medical floor for continued IV antibiotics Patient had the right thigh wound cleaned with chlorhexidine. It was anesthetized with 6 mL of 1% lidocaine with epinephrine local fashion. A #11 blade was used to make a 1.5 cm incision over top the area of induration. A moderate amount of purulent material was expressed. Loculations were dissected with a needle garcia. The wound was copiously irrigated with normal saline. Patient tolerated the procedure well without complication History & Record Review Discussion w/independent historian: Patient Lab Data Attestation: I reviewed the patient's lab results. Labs: Laboratory Results - last 24 hr 05/20/23 05/20/23 23:35 23:40 WBC 12.6 H RBC 3.82 L Hgb 9.2 L Hct 30.3 L MCV 79.3 L MCH 24.1 L MCHC 30.4 L RDW Std Deviation 46.0 H RDW Coeff of Domonique 15.9 H Plt Count 201 MPV 10.4 Immature Gran % (Auto) 1.500 H Neut % (Auto) 72.4 H Lymph % (Auto) 17.2 L [place] % (Auto) 7.7 Eos % (Auto) 0.9 Baso % (Auto) 0.3 Absolute Neuts (auto) 9.2 H Absolute Lymphs (auto) 2.18 Nucleated RBC % 0 Sodium 138 Potassium 3.4 L Chloride 110 H Carbon Dioxide 26.0 Anion Gap 2 L BUN 11 Creatinine 0.50 L Estim Creat Clear Calc 176.25 Est GFR (MDRD) Af Amer 175 Est GFR (MDRD) Non-Af 145 BUN/Creatinine Ratio 22.1 H Glucose 106 Lactic Acid 0.6 Calcium 7.7 L Magnesium 1.6 C-React Prot Ext Range 51.60 H Urine Color Yellow Urine Clarity Clear Urine pH 8.0 Ur Specific [place] 1.015 Urine Protein 30 H Urine Glucose (UA) Normal Urine Ketones 5 H Urine Occult Blood 10 H Urine Nitrite Negative Urine Bilirubin 1 H Urine Urobilinogen 4 H Ur Leukocyte Esterase 100 H Urine RBC 0-5 SEEN Urine WBC 10-25 SEEN Ur Squamous Epith Cells 0-5 SEEN Amorphous Sediment 2+ Urine Bacteria 4+ Urine Mucus 0 SEEN Ur Drug Screen Comment Radiography Diagnostic Testing: Clinical Impression(s) from Imaging Studies Knee X-Ray 05/20/23 23:00 IMPRESSION: No radiographic evidence of osteomyelitis. Electronically Signed: Renaldo Abrams MD at 23:41 EDT , Right knee x-rays interpreted by the emergency medicine physician reveals hardware to be intact and in place without secondary changes to suggest osteomyelitis Discharge Plan Dx/Rx/DC Orders Clinical Impression: Cellulitis of right thigh, Abscess of right thigh, Paraplegia, Tobacco use Disposition Disposition: Acute Care Hospital [facility] Discharge Date/Time: 05/21/23 02:36
[2023-05-21 02:15] VITALS: BP 95/74; PULSE 79; RESP 16; TEMP 36.9; O2SAT 97
[2023-05-21 02:18] LABS: Magnesium 1.6 mg/dL (1.6-2.6)
[2023-05-21 02:51] VITALS: BMI 21.6
[2023-05-21 03:17] VITALS: BP 102/62; PULSE 83; RESP 16; TEMP 36.4; O2SAT 99
[2023-05-21 03:33] LABS: Amphetamine Urine VISTA NEGATIVE (<1000 ng/mL); Barbiturate Urine VISTA NEGATIVE (< 200 ng/mL); Benzodiazepine Urine VISTA NEGATIVE (< 200 ng/mL); Cocaine Urine VISTA NEGATIVE (< 300 ng/mL); Ecstacy Urine VISTA NEGATIVE (< 500 ng/mL); Methadone Urine VISTA NEGATIVE (< 300 ng/mL); PCP Urine VISTA NEGATIVE (< 25 ng/mL); THC Urine VISTA POSITIVE (< 50 ng/mL); Vista UDS pH Range 8
--- NOTE | 2023-05-21 04:16 | PCM.RX.CS ---
Consult Antibiotic Management Pharmacy has been consulted to manage selected antiobiotic: Vancomycin Type of Intervention Type of Consult: New start Suspected Infection Suspected Infection: Skin/Soft tissue Labs Labs: Sodium 138 mmol/L (136-145) 05/20/23 23:40 Potassium 3.4 mmol/L (3.5-5.1) L 05/20/23 23:40 Chloride 110 mmol/L (98-107) H 05/20/23 23:40 Carbon Dioxide 26.0 mmol/L (21.0-32.0) 05/20/23 23:40 Anion Gap 2 (5-15) L 05/20/23 23:40 BUN 11 mg/dL (7-18) 05/20/23 23:40 Creatinine 0.50 mg/dL (0.55-1.02) L 05/20/23 23:40 Est GFR (MDRD) Af Amer 175 mL/min (>60) 05/20/23 23:40 Est GFR (MDRD) Non-Af 145 mL/min (>60) 05/20/23 23:40 BUN/Creatinine Ratio 22.1 RATIO (10-20) H 05/20/23 23:40 Glucose 106 mg/dL (74-106) 05/20/23 23:40 Goal Trough Goal Trough: 15-20 mcg/mL Pharmacy Plan for Drug Dosing Pharmacy Plan for Drug Dosing: NEW START IV VANCOMYCIN Consulting Physician: Dr. De Los Santos Indication: Cellulitis Goal Trough: 15-20 SrCr: 0.50 mg/dL (05/20/23) CrCl: > 100 ml/min Comments: Vancomycin 1250mg x1 dose given in ER @ 2355 05/20/23 Vancomycin Dose: 1000mg Q8H to start at 0800 05/21/23 Pending Level: Vancomycin trough @ 232905/21/23 Pharmacy Service will continue to monitor and adjust dosing as required. Follow-Up Labs Follow-Up Labs: Trough: Vancomycin Date/Time Labs Ordered Labs to be done on [date and time ordered]: 232905/21/23
[2023-05-21] MEDS: Baclofen 10 MG Tablet 30 MG PO ×3 (04:25→14:06)
[2023-05-21] MEDS: Potassium Chloride Oral Tablet 20 MEQ 40 MEQ PO (04:25)
[2023-05-21] MEDS: 0.9% Normal Saline 1,000 ML 100 ML IV (04:25)
[2023-05-21 04:28] LABS: Probe Check PASS; Staph aureus DNA By PCR POSITIVE (Negative)
[2023-05-21 04:30] LABS: M R Staph aureus DNA By PCR POSITIVE (Negative)
[2023-05-21 06:00] VITALS: BMI 21.7
[2023-05-21 07:35] VITALS: O2SAT 99
[2023-05-21] MEDS: Vancomycin IV 1,000 MG/200 ML BAG 200 MG IV (08:11)
[2023-05-21 08:15] VITALS: BP 115/75; PULSE 90; RESP 18; TEMP 37.1; O2SAT 8
[2023-05-21] MEDS: clonazePAM 0.5 MG Tablet PO (08:19)
[2023-05-21] MEDS: Fludrocortisone Acetate 0.1 MG Tablet PO (08:19)
[2023-05-21 08:33] LABS: Absolute Lymphocyte Count 1.11 X10^3/uL (0.83-4.51); Absolute Neutrophil Count 11.3 X10^3/uL (2.0-7.7); Basophil# 0.03 X10^3/uL; Basophil% 0.2 % (0-1); Eosinophil# 0.05 X10^3/uL; Eosinophils% 0.4 % (0-5); Hematocrit 32.5 % (37-47); Hemoglobin 10.1 g/dL (12.0-15.0); Lymphocyte # 1.11 X10^3/ul (0.83-4.51); Lymphocyte % 8.2 % (19-41); Mean Corp Hgb Conc 31.1 g/dL (32-36); Mean Corpuscular Hgb 24.5 pg (27.0-32.0); Mean Corpuscular Volume 78.7 fL (81-99); Monocyte# 0.89 X10^3/uL; Monocyte% 6.6 % (0-10); NRBC Flagged by Analyzer 0 % (0-5); Neutrophil # 11.34 X10^3/uL (2.7-7.7); Neutrophil % 84.1 % (47-70); Platelet Count 190 K/mm3 (150-450); RBC Distribution Width CV 16.1 % (11.6-14.6); RBC Distribution Width SD 46.4 fl (35.1-43.9); Red Blood Count 4.13 M/mm3 (4.2-5.4); White Blood Count 13.5 K/mm3 (4.4-11.0)
--- NOTE | 2023-05-21 08:47 | WOUNDNOTE ---
wound photo: right thigh
[2023-05-21 09:03] LABS: ALB/GLOB Ratio 0.7 RATIO (0.9-2.4); AST(SGOT) 13 U/L (15-37); Alanine Aminotransfer ALT/SGPT 41 U/L (13-56); Albumin, Serum 2.6 g/dL (3.2-5.0); Alkaline Phosphatase 132 U/L (45-117); Anion Gap 2 (5-15); BUN 8 mg/dL (7-18); BUN/Creat Ratio 21.9 RATIO (10-20); Calcium,Total 7.6 mg/dL (8.5-10.1); Chloride 113 mmol/L (98-107); Creatinine, Serum 0.36 mg/dL (0.55-1.02); EST Glomerular Filtration Rate 207 mL/min (>60); Est Glom Filt Rate - Afr Amer 251 mL/min (>60); Estimated Creatinine Clearance 241.54 ml/min; Globulin 3.5 g/dL (2.2-4.2); Glucose 102 mg/dL (74-106); Potassium 3.7 mmol/L (3.5-5.1); Protein, Total 6.1 g/dL (6.4-8.2); Sodium Level 139 mmol/L (136-145)
[2023-05-21] MEDS: Gabapentin 800 MG Tablet PO ×2 (10:16→14:06)
[2023-05-21] MEDS: levoFLOXacin IV 750 MG/150 ML BAG 100 MG IV (10:16)
[2023-05-21] MEDS: DULoxetine Hcl 60 MG Capsule 120 MG PO (10:17)
[2023-05-21] MEDS: Menthol/Lanolin/Calamine/Znox 113 GM Tube 1 APPLIC TOPICAL (10:17)
[2023-05-21] MEDS: Tolterodine Tartrate 2 MG CAP.SA PO (10:18)
[2023-05-21] MEDS: Meloxicam 15 MG Tablet PO (10:19)
--- NOTE | 2023-05-21 12:05 | CASEMGMT ---
RN?CM?SAFETY INTERN?CM?to room to meet with patient for initial transition planning/care coordination?assessment.?RN?CM?introduced self and role at [facility].? Pt voices understanding and consents to?assessment?at this time.? Pt sitting on edge of bed in no distress at this time, but states she is anxious to discharge home, stating her 17-yr-old dtr is missing and she wants to leave the hospital so she can try and locate her. She states she may even sign out AMA, but is concerned about still needing Rx's for atb's @ d/c. Pt made aware that RN CM will notify Dr Thorne. ? Pt is A/O at this time and answers all questions appropriately.?? Care providers, pharmacy, and demographics verified/updated at this time. PCP: Dr Zimmer Specialists: Dr Terrell-urologist in [place]. Dr Montanez-neurologist @ [facility] Preferred Pharmacy: [facility] Retail Insurance: JESS. Pt states will be switching to [employer] tomorrow. She does not have copy of insurance card for this to be verified. Prescription Benefit:?Yes Living Will/HPOA:?Pt does not currently have LW/HCPOA and declines wanting to complete at this time. She was made aware, should she decide she would like to complete, this can be done w/SW as an OP. She voices understanding. LNOK: 2 adult children. Also has 2 children under age of 18. Mother, . Sister, Liseth Living Arrangements: Lives in a mobile home w/ramp entrance. Niece lives w/her. Pt is paraplegic and is W/C and bedbound. Niece assists her w/meals when she is home. When pt is home alone, she is able to manage taking care of herself while in bed. Has [place] [facility] Waiver. CM used to be Azra, but she just got a new CM and does not remember her name. She has aides 5 days/week for total of 40 hrs/week and receives Mom's meals. Essie VALERIO, made aware. Transportation: Through insurance. Pt states will need a ride home and wants transportation set up for today, as she is leaving the hospital today. DME: ?States has the following DME:?slide board, W/C, and SP catheter supplies delivered via mail. Has a shower chair, but states mostly sponge-baths. ?Pt states no need for further DME at this time.? HHC/SNF: [facility]. Pt states in the process of getting HHC: PT only. She states she already has an order from Dr Montanez for HHC: PT only. She states, if HHC can be set up for her prior to discharge, that would be great, but is okay also if this is not able to be arranged prior to her discharge, stating again that she is leaving today.. She denies having preference of HHC agency and states referral can be sent to anyone that could take her. Otherwise, if it is not able to be set up for her prior to discharge she plans to f/u with them on her own. Call to [facility] and spoke w/Deann. She states without being able to verify pt's new insurance/[employer] that begins tomorrow, they are unable to accept pt. Pt made aware and states that is okay. Pt wishes to return home and states has no further concerns with going home at time of discharge.? CM?to follow for any further discharge planning/needs.? Pt voices no further concerns/needs at this time.? Advised pt to ask for?CM?if any further questions/concerns/needs arise.? Voices understanding. PLAN:??Home Yumiko NUNEZN?RN?CM
--- NOTE | 2023-05-21 12:53 | CASEMGMT ---
REINA Zacarias at [facility] to cancel referral as pt is leaving AMA. [place] to set up transportation home for pt.
--- NOTE | 2023-05-21 13:36 | PCM.HOSP.N ---
Hospitalist Note PATIENT IS LEAVING AMA. This a.m. patient reports she is feeling better and has multiple things at home and will not stay. Patient still has erythema surrounding area on leg and an elevated white blood cell count and all cultures are still pending. Discussed with patient regarding importance of staying while awaiting cultures especially given her urine cultures in the past and cannot guarantee what bacteria she will grow and will be making an educated guess regarding coverage at this time without having culture guidance especially given history and cannot rule out need for IV antibiotics if patient has any blood cultures positive for MRSA. Patient verbalized her understanding of the risks and still request to leave AMA. Due to abscess and obvious infection of leg we will send in prescription of Bactrim patient will follow up with a PCP however do not feel comfortable discharging patient and she is aware of this, patient aware antibiotics will be sent in and warning signs and symptoms and she verbalized her understanding. She also verbalized her understanding that she will need to sign AMA papers. Patient to leave AMA. At this time do feel she has capacity to make this decision
--- NOTE | 2023-05-21 14:16 | CASEMGMT ---
Social Work Pt has waiver services, SW called [facility], Melisa Engel is pt's manager of case. SW let her know pt was admitted yesterday but leaving AMA today. SW let her know reason for hospitalization, and pt may benefit from some follow up from her manager of case. No further social service needs, pt going home today AMA. DELMAR Robert
== END 2023-05-21 14:37 | disposition left against medical advice (07) | DRG 383 ==
LOC: ED 05-21 01:48 → MS3 05-21 02:00
PROVIDERS: Admitting Provider Family Medicine; Emergency Provider Emergency Medicine; PCP Family Medicine; Referring Provider Family Medicine; Visit Provider Internal Medicine
DX: L03.115 Cellulitis of right lower limb (principal); G82.20 Paraplegia, unspecified; T83.511A Infection and inflammatory reaction due to indwelling urethral catheter, initial encounter; D50.9 Iron deficiency anemia, unspecified; F17.210 Nicotine dependence, cigarettes, uncomplicated; E87.6 Hypokalemia; I95.89 Other hypotension; F32.A Depression, unspecified; F41.9 Anxiety disorder, unspecified; N39.0 Urinary tract infection, site not specified; L02.415 Cutaneous abscess of right lower limb; Z79.02 Long term (current) use of antithrombotics/antiplatelets; Z79.52 Long term (current) use of systemic steroids; Z86.14 Personal history of Methicillin resistant Staphylococcus aureus infection; Z86.718 Personal history of other venous thrombosis and embolism
CPT/HCPCS: 73562; 80048; 80053; 80307; 81001; 83605; 83735; 85025; 86140; 87040; 87070; 87077; 87086; 87088; 87186; 87205; 87640; 99252; 99285; J7030; J7050; A4216; G0463

== ENCOUNTER 2023-06-17 20:24 | Emergency (ER) | payer MEDICAID, SELFPAY ==
[2023-06-17 20:27] VITALS: BP 106/71; PULSE 84; RESP 18; TEMP 36.2; O2SAT 98; BMI 22.1
[2023-06-17 20:32] VITALS: BP 106/71; PULSE 104; RESP 18; TEMP 36.2; O2SAT 98
--- NOTE | 2023-06-17 20:58 | EX.ED.DYSGE1 ---
HPI <ENEDINA Santiago - Last Filed: 06/17/23 22:22> History of Present Illness Chief Complaint: Complaint Narrative Narrative: Patient is a 42-year-old female with history of paraplegia secondary to an abscess to her spine in 2019. Patient also has a chronic suprapubic catheter. Patient was recently admitted for MRSA of the wound to the right leg. Patient presents today with 1 week of generalized not feeling well. Strong smelling urine, as well as leaking from the suprapubic site, she also states that she had some urine out of her vagina that has not happened since 2019. Patient is concerned she may have another UTI. [facility] <ENEDINA Santiago - Last Filed: 06/17/23 22:22> [facility] Medical History Anxiety and depression Chronic hypotension Chronic indwelling Charles catheter DVT (deep venous thrombosis) Esophageal reflux Hepatitis C History of intravenous drug abuse Kidney stones Neurogenic bladder Paraplegia Spinal abscess Home Medications baclofen 20 mg tablet 30 mg PO 4X/DAY muscle spasm 10/19/19 [History Last Taken 05/20/23] duloxetine 60 mg capsule,delayed release 120 mg PO DAILY depression 10/19/19 [History Last Taken 05/20/23] oxybutynin chloride 10 mg tablet,extended release 24 hr 10 mg PO DAILY bladder 12/24/19 [History Last Taken 05/20/23] gabapentin 100 mg capsule 800 mg PO 4X/DAY paraplegia/nerve pain 05/02/20 [History Last Taken 05/20/23] clonazepam 0.5 mg tablet 0.5 mg PO TID PRN Anxiety #9 tabs 07/05/20 [Rx Last Taken 05/20/23] cilostazol 50 mg tablet 50 mg PO BID antiplatelet 08/15/22 [History Last Taken 05/20/23] meloxicam 15 mg tablet 15 mg PO DAILY spasms 08/15/22 [History Last Taken 05/20/23] Allergy/AdvReac Type Severity Reaction Status Date / Time Penicillins AdvReac PT UNSURE Verified 06/17/23 20:27 OF REACTION Family History Mother Multiple sclerosis Surgical History (Updated 06/17/23 @ 23:[address] Ignacio Michael MD) History of suprapubic catheter History of surgery on lower extremity Hx of spinal surgery S/P debridement Social History household members: none Smoking Status: Current every day smoker tobacco type: cigarettes alcohol intake: current Alcohol type: other substance use type: former substance user Date of last use: Prior history of IV drug abuse with heroin and methamphetamine. ROS <ENEDINA Santiago - Last Filed: 06/17/23 22:22> ROS ED ROS Narrative Constitutional: Negative for fever, chills, weight loss. Positive for generalized feeling of weakness, not feeling well Eyes: Negative for vision loss, vision change, double vision ENT: Negative for any sore throat, ear pain, congestion Cardiovascular: Negative for any chest pain, tightness, palpitations Respiratory: Negative for any cough, sputum production, hemoptysis, dyspnea, dyspnea on exertion, orthopnea Gastrointestinal: Negative for any abdominal pain, nausea, vomiting, diarrhea, constipation, blood in stool, blood in vomit : Negative for any urinary frequency, dysuria, retention, blood in urine. Leaking from suprapubic catheter, strong smelling urine. Concern for leaking through the vagina Muscle skeletal: Negative for any muscle joint pain, stiffness, myalgias, arthralgias, neck pain, back pain Neurological: Negative for any headache, syncope, numbness or tingling, dizziness Skin: Negative for any rashes, lumps, itching, abrasions, lacerations Psychiatric: Negative for any depression, anxiety, stress, suicidal ideation, homicidal ideation Hematologic: Negative for any easy bruising, excessive bruising, easy bleeding Allergies: Negative for any eczema, hives, rash EXAM <ENEDINA Santiago - Last Filed: 06/17/23 22:22> Physical Exam Narrative Exam Narrative: Vital signs reviewed. Vital signs are stable. HEET: Head normocephalic atraumatic, TMs clear bilaterally. Posterior pharynx is clear, moist mucous membranes. Nares clear bilaterally. Neck: Supple with no lymphadenopathy or tenderness. No signs of meningismus, negative jolt sign. Cardiac: Regular rate and rhythm no murmurs gallops or rubs, equal peripheral pulses bilaterally. Respiratory: Lungs clear to auscultation bilaterally. No chest tenderness. Abdomen: Soft, nontender, nondistended. No abdominal bruit or pulsatile masses. No hepatosplenomegaly. Patient has a suprapubic catheter, there is strong smelling urine. Patient has no pain on palpation. Active bowel sounds. Extremities: No peripheral edema, no signs of gross trauma or deformity. Active full range of motion of all extremities. Neuro: Cranial nerves II through XII intact, no focal neurological deficits. Skin: Clean dry and intact with no rash, purpura, petechiae, vesicles or pustules. Backs/flank: No CVA tenderness, no midline spinal tenderness, no deformity. Psych: Normal mood and affect. No SI, HI or acute psychosis. Const Vital Signs: 06/17/23 20:27 06/17/23 20:32 Temperature 97.2 F L 97.2 F L Temperature Source Temporal Temporal Pulse Rate 84 104 H Respiratory Rate 18 18 Blood Pressure 106/71 106/71 Blood Pressure Mean 82 82 Pulse Ox 98 98 Oxygen Delivery Method Room Air Room Air Positive well nourished and well developed General Appearance ED: well developed <Dr. Ignacio Mihcael MD - Last Filed: 06/17/23 23:08> Physical Exam Const Vital Signs: 06/17/23 20:27 06/17/23 20:32 Temperature 97.2 F L 97.2 F L Temperature Source Temporal Temporal Pulse Rate 84 104 H Respiratory Rate 18 18 Blood Pressure 106/71 106/71 Blood Pressure Mean 82 82 Pulse Ox 98 98 Oxygen Delivery Method Room Air Room Air MDM <ENEDINA Santiago - Last Filed: 06/17/23 22:22> [facility] Lab Data Labs: Laboratory Results - last 24 hr 06/17/23 06/17/23 21:12 22:36 WBC 13.3 H RBC 4.77 Hgb 11.2 L Hct 37.3 MCV 78.2 L MCH 23.5 L MCHC 30.0 L RDW Std Deviation 42.5 RDW Coeff of Domonique 15.0 H Plt Count 226 MPV 10.2 Immature Gran % (Auto) 0.300 Neut % (Auto) 68.7 Lymph % (Auto) 23.1 [place] % (Auto) 6.3 Eos % (Auto) 1.1 Baso % (Auto) 0.5 Absolute Neuts (auto) 9.2 H Absolute Lymphs (auto) 3.08 Nucleated RBC % 0 Sodium 140 Potassium 3.6 Chloride 108 H Carbon Dioxide 27.0 Anion Gap 5 BUN 14 Creatinine 0.43 L Estim Creat Clear Calc 204.94 Est GFR (MDRD) Af Amer 205 Est GFR (MDRD) Non-Af 170 BUN/Creatinine Ratio 32.3 H Glucose 94 Calcium 8.7 Urine Color Yellow Urine Clarity Clear Urine pH 7.0 Ur Specific [place] 1.010 Urine Protein Negative Urine Glucose (UA) Normal Urine Ketones Negative Urine Occult Blood Negative Urine Nitrite Negative Urine Bilirubin Negative Urine Urobilinogen Normal Ur Leukocyte Esterase 25 H Urine RBC 0 SEEN Urine WBC 0-5 SEEN Ur Squamous Epith Cells 0-5 SEEN Urine Bacteria 2+ Urine Mucus 0 SEEN Radiography Diagnostic Testing: Clinical Impression(s) from Imaging Studies Chest X-Ray 06/17/23 21:20 IMPRESSION: 1. No acute cardiopulmonary disease. 2. Posterior left seventh rib fracture also present on August 15, 2022. There is new/increased perilesional bone formation. Electronically Signed: Nicolas Patel DO at 22:20 EDT , Treatment and Re-Evaluation :: Patient appears generally well, patient appears nontoxic, vital signs are stable. Patient presents the emergency department for concern for UTI, leaking around her suprapubic catheter. Patient looks generally well, patient be given a new 16 Hebrew catheter placed to get a clean sample. This will be sent for culture. Patient will receive IV fluids, IV Toradol. She will also be receiving COVID-19, influenza secondary to the feeling of fatigue and generally feeling unwell. Patient's urinalysis showed 2+ bacteria, 0-5 white blood cells, 0-5 squamous cells. 25 leukocyte esterase. Negative for any nitrates. At this time, this will be sent for culture. I do believe this is colonization. Patient received basic laboratory values. Should be followed up by ER attending. Patient was given IV fluids, IV Zofran, Toradol. <Dr. Ignacio Michael MD - Last Filed: 06/17/23 23:08> [facility] Narrative Medical decision making narrative: I have personally performed a face to face assessment of the patient and have reviewed the KJ Note. I performed a substantive portion of the visit including all aspects of the following. My díaz findings include: History is remarkable for not feeling well for proxy 1 week and strong smelling odor to urine. Patient has suprapubic catheter. She states her catheter is due to be changed. She denies fever or chills. Denies nausea or vomiting. She denies dermatologic lesions. Exam is remarkable for tachycardia. Patient appears pale. HEENT exam is unremarkable. Lungs are clear to auscultation. Heart is regular. Rate is normal. There is no murmur, gallop or rub. Abdomen soft nontender. Patient is paraplegic due to epidural abscess 2018. Medical Decision Making we will assess for urinary tract infection, anemia and metabolic causes of her symptoms. Other additions or changes: [None] Lab Data Attestation: I reviewed the patient's lab results. Lab results narrative: White count is elevated with ventral. Basic metabolic panel is remarkable for an elevated BUN to creatinine ratio of 32:1. Urine is remarkable for 2+ bacteria with no pyuria. This probably represents colonization. Patient be discharged home with an oh generalized weakness. Labs: Laboratory Results - last 24 hr 06/17/23 06/17/23 21:12 22:36 WBC 13.3 H RBC 4.77 Hgb 11.2 L Hct 37.3 MCV 78.2 L MCH 23.5 L MCHC 30.0 L RDW Std Deviation 42.5 RDW Coeff of Domonique 15.0 H Plt Count 226 MPV 10.2 Immature Gran % (Auto) 0.300 Neut % (Auto) 68.7 Lymph % (Auto) 23.1 [place] % (Auto) 6.3 Eos % (Auto) 1.1 Baso % (Auto) 0.5 Absolute Neuts (auto) 9.2 H Absolute Lymphs (auto) 3.08 Nucleated RBC % 0 Sodium 140 Potassium 3.6 Chloride 108 H Carbon Dioxide 27.0 Anion Gap 5 BUN 14 Creatinine 0.43 L Estim Creat Clear Calc 204.94 Est GFR (MDRD) Af Amer 205 Est GFR (MDRD) Non-Af 170 BUN/Creatinine Ratio 32.3 H Glucose 94 Calcium 8.7 Urine Color Yellow Urine Clarity Clear Urine pH 7.0 Ur Specific [place] 1.010 Urine Protein Negative Urine Glucose (UA) Normal Urine Ketones Negative Urine Occult Blood Negative Urine Nitrite Negative Urine Bilirubin Negative Urine Urobilinogen Normal Ur Leukocyte Esterase 25 H Urine RBC 0 SEEN Urine WBC 0-5 SEEN Ur Squamous Epith Cells 0-5 SEEN Urine Bacteria 2+ Urine Mucus 0 SEEN Radiography Chest X-Ray - ED: 1 View and Read by ED Physician (Chest x-ray independently reviewed interpreted by me as negative for any acute process. Cardiac silhouette size normal. Lung parenchyma is unremarkable. Patient has a prior left sixth or seventh rib fracture. This is noted on prior image July 2022) Diagnostic Testing: Clinical Impression(s) from Imaging Studies Chest X-Ray 06/17/23 21:20 IMPRESSION: 1. No acute cardiopulmonary disease. 2. Posterior left seventh rib fracture also present on August 15, 2022. There is new/increased perilesional bone formation. Electronically Signed: Nicolas Patel DO at 22:20 EDT , Discharge Plan Triage Chief Complaint: Complaint ED Midlevel Provider: Amilcar Vanegas ED Provider: Ignacio Michael Dx/Rx/DC Orders Clinical Impression: Viral syndrome, Paraplegia, Generalized weakness, Chronic suprapubic catheter Instructions: ED Weakness (Uncertain Cause) Prescriptions: No Action baclofen 20 MG tablet 30 mg PO 4X/DAY Patient Comments: Take 1 tablet by mouth 4 (four) times a day. duloxetine 60 MG capsule,delayed release(DR/EC) 120 mg PO DAILY Patient Comments: Take 2 capsules by mouth daily. oxybutynin chloride 10 MG tablet extended release 24hr 10 mg PO DAILY gabapentin 100 MG capsule 800 mg PO 4X/DAY clonazepam 0.5 MG tablet 0.5 mg PO TID PRN (Reason: Anxiety) Qty: 9 0RF cilostazol 50 mg tablet 50 mg PO BID Patient Comments: Take 1 tablet by mouth twice daily. meloxicam 15 mg tablet 15 mg PO DAILY Patient Comments: Take 1 tablet by mouth once daily. With food. Primary Care Provider: Qamar Zimmer Referrals: Qamar Zimmer MD [Primary Care Provider] - 3-5 Days if not improving Disposition Disposition: Home, Self Care
--- NOTE | 2023-06-17 21:20 | RAD_ITS ---
INDICATION: cough EXAMINATION/TECHNIQUE: X-RAY - XR Chest 1 View COMPARISON: August 15, 2022 chest x-ray. FINDINGS: LINES/DEVICES: Incompletely visualized cervicothoracic junction internal fixation plate. LUNGS: Symmetric normal lung volumes. No airspace opacity or abnormal interstitial pattern. No nodule or mass. No pleural effusion or pneumothorax. MEDIASTINUM AND CARDIOVASCULAR STRUCTURES: Normal size and contour of the cardiomediastinal silhouette. No evidence of pulmonary vascular congestion. BONES AND SOFT TISSUES: No acute fracture or focal osseous lesion. Posterolateral left rib fracture with surrounding periosteal reaction, increased compared to prior exam August 15, 2022. RAD/Chest 1 View (Portable) IMPRESSION: 1. No acute cardiopulmonary disease. 2. Posterior left seventh rib fracture also present on August 15, 2022. There is new/increased perilesional bone formation. Electronically Signed: Nicolas Patel DO at 22:20 EDT ,
[2023-06-17 21:43] LABS: Mucous, Urine 0 SEEN /hpf (<or=2+); Red Blood Cells-Urine 0 SEEN /hpf (0-5)
[2023-06-17 21:49] LABS: Glucose, Dipstick Normal (Normal); Ketone-Dipstick Negative (Negative); Leukocyte Esterase-Dipstick 25 /ul (Negative); Nitrite-Dipstick Negative (Negative); Occult Blood-Urine Negative /ul (Negative); Protein-Dipstick Negative (Negative); Urine Bilirubin Dipstick Negative (Negative); Urine Urobilinogen Normal (Normal)
[2023-06-17 21:54] LABS: Color, Urine Yellow (Yellow); Urine Clarity Clear (Clear)
[2023-06-17 22:00] LABS: Bacteria 2+ /hpf (None Seen); Squamous Epithelial Cells - UA 0-5 SEEN /hpf (5-10); White Blood Cells 0-5 SEEN /hpf (0-5)
[2023-06-17] MEDS: Ondansetron 4 MG/2 ML Vial IV (22:05)
[2023-06-17] MEDS: 0.9% Normal Saline 1,000 ML 1000 ML IV (22:05)
[2023-06-17] MEDS: Ketorolac 15 MG/ML Vial IV (22:06)
[2023-06-17 22:54] LABS: Absolute Lymphocyte Count 3.08 X10^3/uL (0.83-4.51); Absolute Neutrophil Count 9.2 X10^3/uL (2.0-7.7); Basophil# 0.06 X10^3/uL; Basophil% 0.5 % (0-1); Eosinophil# 0.15 X10^3/uL; Eosinophils% 1.1 % (0-5); Hematocrit 37.3 % (37-47); Hemoglobin 11.2 g/dL (12.0-15.0); Lymphocyte # 3.08 X10^3/ul (0.83-4.51); Lymphocyte % 23.1 % (19-41); Mean Corpuscular Hgb 23.5 pg (27.0-32.0); Mean Corpuscular Volume 78.2 fL (81-99); Mean Platelet Vol. 10.2 fl (6.2-12.0); Monocyte# 0.84 X10^3/uL; Monocyte% 6.3 % (0-10); NRBC Flagged by Analyzer 0 % (0-5); Neutrophil # 9.16 X10^3/uL (2.7-7.7); Neutrophil % 68.7 % (47-70); Platelet Count 226 K/mm3 (150-450); RBC Distribution Width SD 42.5 fl (35.1-43.9); Red Blood Count 4.77 M/mm3 (4.2-5.4); White Blood Count 13.3 K/mm3 (4.4-11.0)
[2023-06-17 23:01] LABS: Anion Gap 5 (5-15); BUN 14 mg/dL (7-18); BUN/Creat Ratio 32.3 RATIO (10-20); Calcium,Total 8.7 mg/dL (8.5-10.1); Chloride 108 mmol/L (98-107); Creatinine, Serum 0.43 mg/dL (0.55-1.02); EST Glomerular Filtration Rate 170 mL/min (>60); Est Glom Filt Rate - Afr Amer 205 mL/min (>60); Estimated Creatinine Clearance 204.94 ml/min; Glucose 94 mg/dL (74-106); Potassium 3.6 mmol/L (3.5-5.1); Sodium Level 140 mmol/L (136-145)
[2023-06-18 00:17] VITALS: BP 110/70; PULSE 89; RESP 16
[2023-06-18 00:19] VITALS: BP 110/70; PULSE 89; RESP 16
== END 2023-06-18 00:20 | disposition home or self-care (01) ==
PROVIDERS: Nurse Practitioner; Emergency Provider Emergency Medicine; PCP Family Medicine; Visit Provider Emergency Medicine
DX: B34.9 Viral infection, unspecified (principal); G82.20 Paraplegia, unspecified; R53.1 Weakness; F17.210 Nicotine dependence, cigarettes, uncomplicated; F41.8 Other specified anxiety disorders; Z79.899 Other long term (current) drug therapy; Z79.02 Long term (current) use of antithrombotics/antiplatelets
CPT/HCPCS: 51701; 36415; 71045; 80048; 81001; 85025; 87077; 87086; 87088; 87186; 87428; 96361; 96374; 96375; 99285; J7030; A4216; J2405

== ENCOUNTER 2023-06-22 13:19 | Emergency (ER) | payer MEDICAID, SELFPAY ==
[2023-06-22 13:19] VITALS: BP 91/81; PULSE 113; RESP 18; TEMP 36.8; O2SAT 98; BMI 20.5
--- NOTE | 2023-06-22 14:04 | EKG12_ITS ---
Test Reason : CP Blood Pressure : / mmHG Vent. Rate : 114 BPM Atrial Rate : 114 BPM P-R Int : 156 ms QRS Dur : 102 ms QT Int : 352 ms P-R-T Axes : 070 112 061 degrees QTc Int : 485 ms Sinus tachycardia Right axis deviation Incomplete right bundle branch block Abnormal ECG Confirmed by ERNESTO RAMOS, HELENA ([id number]), general expeditor KATHARINE LEDEZMA ([id number]) on 07/30/2023 12:51:35 PM Referred By: [facility] Confirmed By:CASSIDY OROZCO MD
--- NOTE | 2023-06-22 14:15 | RAD_ITS ---
STUDY: X-RAY CHEST REASON FOR EXAM: Female, 42 years old. Chest pain TECHNIQUE: Single AP portable view of the chest. COMPARISON: Comparison is made with prior study dated June 17, 2023. FINDINGS: EKG electrodes are seen. Hyperinflation. There is no demonstrated pleural abnormality. Normal size heart. Normal mediastinum and rufino. Normal visualized pulmonary arteries. Normal visualized aortic arch and descending thoracic aorta. There are degenerative changes of the visualized thoracic spine. Healing right seventh rib fracture and left seventh rib fracture with prominent callus formation. Prior cervical fusion. There is no demonstrated abnormality of the visualized soft tissue structures of the upper abdomen. RAD/Chest 1 View (Portable) IMPRESSION: Hyperinflation. The lungs are clear. Electronically Signed: Ashish Villatoro MD at 14:33 EDT ,
[2023-06-22 14:25] LABS: Absolute Neutrophil Count 7.6 X10^3/uL (2.0-7.7); Basophil# 0.05 X10^3/uL; Basophil% 0.4 % (0-1); Eosinophil# 0.07 X10^3/uL; Eosinophils% 0.6 % (0-5); Hematocrit 38.5 % (37-47); Hemoglobin 11.5 g/dL (12.0-15.0); Lymphocyte % 24.2 % (19-41); Mean Corp Hgb Conc 29.9 g/dL (32-36); Mean Corpuscular Hgb 23.3 pg (27.0-32.0); Mean Corpuscular Volume 78.1 fL (81-99); Mean Platelet Vol. 10.9 fl (6.2-12.0); Monocyte# 0.71 X10^3/uL; Monocyte% 6.4 % (0-10); NRBC Flagged by Analyzer 0 % (0-5); Neutrophil # 7.57 X10^3/uL (2.7-7.7); Platelet Count 251 K/mm3 (150-450); RBC Distribution Width SD 42.5 fl (35.1-43.9); Red Blood Count 4.93 M/mm3 (4.2-5.4); White Blood Count 11.1 K/mm3 (4.4-11.0)
[2023-06-22] MEDS: 0.9% Normal Saline 1,000 ML 1000 ML IV ×2 (14:30→16:21)
[2023-06-22 14:43] LABS: Anion Gap 7 (5-15); BUN 12 mg/dL (7-18); BUN/Creat Ratio 25.3 RATIO (10-20); Calcium,Total 8.4 mg/dL (8.5-10.1); Chloride 106 mmol/L (98-107); Creatinine, Serum 0.47 mg/dL (0.55-1.02); EST Glomerular Filtration Rate 153 mL/min (>60); Est Glom Filt Rate - Afr Amer 185 mL/min (>60); Estimated Creatinine Clearance 176.06 ml/min; Glucose 132 mg/dL (74-106); Potassium 3.5 mmol/L (3.5-5.1); Sodium Level 137 mmol/L (136-145); Troponin-I HS (w/2H Reflex) < 3 pg/mL (3.0-54.0)
--- NOTE | 2023-06-22 15:10 | EX.ED.DYSGE1 ---
HPI History of Present Illness Chief Complaint: Chest Pain Detail of Chief Complaint: Low blood pressure and left-sided chest pressure Informant: patient Onset/Context/Timing Onset: Today and Hours (Chest pain started approximately 10:30 AM. Pain is still present.) Context: Sudden Onset Timing: Continuous Quality: Pressure Location: Left pectoral region without radiation. Current Severity: Mild Maximum Severity: Moderate Worsened by: Nothing Relieved by: Nothing Associated Symptoms Associated Symptoms: Sweaty shortness of breath Narrative Narrative: Patient is a 42-year-old woman who is paraplegic due to epidural abscess. She presents because of low blood pressure. She states her pressure is normally 120 systolic. Pressure this morning was 90s. She does not report orthostatic symptoms. At approximately 10:30 AM while lying in bed she developed left-sided chest pressure with diaphoresis and shortness of breath. She has no known history of coronary disease. She is a smoker. There is no family history of coronary disease at young age. Patient states nothing makes the pain better or worse. She has not experienced pain like this in the past. She denies leg pain, swelling or discoloration. She denies GI symptoms. Prior similar symptoms: No Recent Illness/Hospitalization: Yes (Seen recently by me.) [facility] Medical History Anxiety and depression Chronic hypotension Chronic indwelling Charles catheter DVT (deep venous thrombosis) Esophageal reflux Hepatitis C History of intravenous drug abuse Kidney stones Neurogenic bladder Paraplegia Spinal abscess Home Medications baclofen 20 mg tablet 30 mg PO 4X/DAY muscle spasm 10/19/19 [History Last Taken 05/20/23] duloxetine 60 mg capsule,delayed release 120 mg PO DAILY depression 10/19/19 [History Last Taken 05/20/23] oxybutynin chloride 10 mg tablet,extended release 24 hr 10 mg PO DAILY bladder 12/24/19 [History Last Taken 05/20/23] gabapentin 100 mg capsule 800 mg PO 4X/DAY paraplegia/nerve pain 05/02/20 [History Last Taken 05/20/23] clonazepam 0.5 mg tablet 0.5 mg PO TID PRN Anxiety #9 tabs 07/05/20 [Rx Last Taken 05/20/23] cilostazol 50 mg tablet 50 mg PO BID antiplatelet 08/15/22 [History Last Taken 05/20/23] meloxicam 15 mg tablet 15 mg PO DAILY spasms 08/15/22 [History Last Taken 05/20/23] Allergy/AdvReac Type Severity Reaction Status Date / Time Penicillins AdvReac PT UNSURE Verified 06/22/23 13:23 OF REACTION Family History Mother Multiple sclerosis Surgical History History of suprapubic catheter History of surgery on lower extremity Hx of spinal surgery S/P debridement Social History household members: none Smoking Status: Current every day smoker tobacco type: cigarettes alcohol intake: current Alcohol type: other substance use type: former substance user Date of last use: Prior history of IV drug abuse with heroin and methamphetamine. ROS ROS ED Constitutional Constitutional ED: Denies chills, fever(s), subjective, sweats or weight loss Eyes Eyes: Denies blurry vision, change in vision or diplopia ENT ENT ED: Denies ear pain, rhinorrhea or sore throat Cardiovascular Cardiovascular: Reports chest pain; Denies orthopnea, palpitations or racing heartbeat Respiratory/Chest Respiratory/Chest: Reports dyspnea; Denies cough, dyspnea on exertion or orthopnea Gastrointestinal Gastrointestinal: Reports nausea; Denies abdominal pain, constipation, diarrhea, melena or vomiting Genitourinary Genitourinary ED: Denies dysuria, hematuria or urinary frequency Musculoskeletal Musculoskeletal: Denies arthralgias, back pain, myalgias or neck pain Integumentary Denies abscess, Abrasions or rash Neurologic Neurologic: Denies headache(s), paresthesias or weakness Endocrine Endocrinology: Denies cold intolerance or heat intolerance Hematologic/Lymphatic Hematologic/Lymphatic: Reports systems reviewed and no addt'l complaints, except as documented Allergic/Immunologic Allergic/Immunologic ED: Denies mouth swelling, tongue swelling or urticaria EXAM Physical Exam Const Vital Signs: 06/22/23 13:19 06/22/23 13:23 06/22/23 15:03 Temperature 98.2 F Temperature Source Temporal Pulse Rate 113 H Respiratory Rate 18 Respiratory Effort Normal Non-Labored Blood Pressure 91/81 H Blood Pressure Mean 84 Pulse Ox 98 Oxygen Delivery Method Room Air Room Air 06/22/23 16:00 06/22/23 16:43 Temperature Temperature Source Pulse Rate Respiratory Rate Respiratory Effort Blood Pressure 79/54 L 99/60 Blood Pressure Mean 62 73 Pulse Ox Oxygen Delivery Method Positive well nourished and well developed General Appearance ED: well developed, NAD and pallor; Negative for cyanotic or diaphoretic HEENT Reports dry mucous membranes HEENT Narrative: Head is atraumatic and normocephalic. Ears are normal. Nares patent. Posterior pharynx is normal. Uvula is midline. Mouth ED: Yes dry mucous membranes Mouth: dry mucous membranes Eyes PERRL and EOMs intact bilaterally General Eye ED: Negative for pale conjunctiva or scleral icterus Neck no lymphadenopathy, supple and no JVD Neck Narrative: Trachea is midline. Surgical scars noted. Surgical scars are well-healed Chest Wall inspection of chest normal and palpation of chest normal Resp normal respiratory effort and clear to auscultation bilaterally Cardio regular rhythm, S1 normal heart sound, S2 normal heart sound and no murmurs Rate: tachycardic GI normal to inspection, nondistended, normoactive bowel sounds, non-tender, non-distended and no masses; Negative for hepatosplenomegaly Auscultation: normoactive bowel sounds Palpation: soft Back/Spine no CVA tenderness Cervical Spine: Negative for cervical spine tenderness Thoracic Spine / Upper Back: Negative for thoracic spinal tenderness Lumbar Spine / Lower Back: Negative for lumbar spinal tenderness Extremity normal to inspection Neuro oriented x3, CN's II-XII intact bilaterally and No no sensory deficits noted Neuro Narrative: Patient is paraplegic due to epidural abscess. Sensorium / Orientation: alert Motor Exam: Negative for strength 5/5 throughout Psych mental status grossly normal Skin no rashes or lesions noted, no wounds and skin turgor normal General Skin Exam: pallor; Negative for jaundice MDM MDM MDM Narrative Medical decision making narrative: Presents with left-sided chest pressure and associated symptoms. Need to rule out cardiac versus noncardiac etiology. Chest x-ray was obtained to assess for widened mediastinum, pneumothorax and infiltrate. EKG to assess for acute ischemia as well as right heart strain which may indicate atypical presentation for PE. She does have history of DVT/PE after her surgery which was several years ago. This may also be of GI origin. Work-up included EKG, troponin with 2-hour troponin, CBC and electrolyte panel. Because patient is hypotensive which is unusual for her and tachycardic she received a liter of normal saline wide open. Patient was seen recently by me for suprapubic catheter. Prior ED visits and lab results were reviewed. History & Record Review Additional record(s) reviewed:: Prior ED visit and Prior labs Lab Data Attestation: I reviewed the patient's lab results. Lab results narrative: White count is slightly elevated 11.1 with normal differential. First troponin is less than 3. Basic metabolic panel reveals slight elevation of glucose of 132 with a normal CO2 anion gap. BUN to creatinine ratio is elevated at 25-1 with a normal BUN and creatinine of 12 and 0.47 respectively. The hypotension may be due to dehydration since her BUN/creatinine ratio is a 20-1. 2-hour troponin is 4 with a delta of 1. Lactate is normal at 1.5. Labs: Laboratory Results - last 24 hr 06/22/23 06/22/23 06/22/23 14:05 16:10 16:13 WBC 11.1 H RBC 4.93 Hgb 11.5 L Hct 38.5 MCV 78.1 L MCH 23.3 L MCHC 29.9 L RDW Std Deviation 42.5 RDW Coeff of Domonique 15.0 H Plt Count 251 MPV 10.9 Immature Gran % (Auto) 0.400 Neut % (Auto) 68.0 Lymph % (Auto) 24.2 Alexander % (Auto) 6.4 Eos % (Auto) 0.6 Baso % (Auto) 0.4 Absolute Neuts (auto) 7.6 Absolute Lymphs (auto) 2.70 Nucleated RBC % 0 Sodium 137 Potassium 3.5 Chloride 106 Carbon Dioxide 24.0 Anion Gap 7 BUN 12 Creatinine 0.47 L Estim Creat Clear Calc 176.06 Est GFR (MDRD) Af Amer 185 Est GFR (MDRD) Non-Af 153 BUN/Creatinine Ratio 25.3 H Glucose 132 H Lactic Acid 1.5 Calcium 8.4 L Troponin I High Sens < 3 L 4 Radiography Chest X-Ray - ED: 1 View and Read by ED Physician (Because patient was still having discomfort single portable view was independent reviewed interpreted by me at 1426 as negative for any acute findings. Patient has slight hyperaeration. Cardiac silhouette and size normal. There is no pneumothorax, effusion or infiltrate. Mediastinum is unremarka) Diagnostic Testing: Clinical Impression(s) from Imaging Studies Chest X-Ray 06/22/23 14:15 IMPRESSION: Hyperinflation. The lungs are clear. Electronically Signed: Ashish Villatoro MD at 14:33 EDT , Rhythm Strip Rhythm Strip: Sinus Tach Rate: 122 Ectopy: None EKG Initial EKG: Attestation: I personally reviewed and interpreted this EKG as follows: Interpretation: Sinus Tachycardia (Rate is 114. [place] to the right. OR interval is 156 ms QRS duration is prolonged at 102 ms with an incomplete right bundle kita block (RR prime in V1 and V2.) QT duration is 3 to 2 ms. Is also artifact which complicates the interpretation.) Treatment and Re-Evaluation :: When I went to tell patient at approximately 1600 her chest x-ray results and blood results at this point her blood pressure was noted to be 72/54. This was after the first liter was ordered. Verbal order was given to the nurse for an additional liter of normal saline and lactate level. Patient was reassessed at approximately 1740. Her blood pressure is now 120/70 which is her baseline. She feels better. Her 2-hour troponin was 4 with a delta of 1. Plan is to discharge to home. Discharge Plan Triage Chief Complaint: Chest Pain Other Complaint: General Illness ED Provider: Ignacio Michael Dx/Rx/DC Orders Clinical Impression: Left-sided chest pain, Paraplegia, Acute hypotension, Chronic anemia, Acute prerenal azotemia Instructions: ED Chest Pain, Noncardiac, ED Dehydration (Adult) Prescriptions: No Action baclofen 20 MG tablet 30 mg PO 4X/DAY Patient Comments: Take 1 tablet by mouth 4 (four) times a day. duloxetine 60 MG capsule,delayed release(DR/EC) 120 mg PO DAILY Patient Comments: Take 2 capsules by mouth daily. oxybutynin chloride 10 MG tablet extended release 24hr 10 mg PO DAILY gabapentin 100 MG capsule 800 mg PO 4X/DAY clonazepam 0.5 MG tablet 0.5 mg PO TID PRN (Reason: Anxiety) Qty: 9 0RF cilostazol 50 mg tablet 50 mg PO BID Patient Comments: Take 1 tablet by mouth twice daily. meloxicam 15 mg tablet 15 mg PO DAILY Patient Comments: Take 1 tablet by mouth once daily. With food. Primary Care Provider: Qamar Zimmer Referrals: Qamar Zimmer MD [Primary Care Provider] - 3-5 Days if not improving Disposition Disposition: Home, Self Care
[2023-06-22 16:00] VITALS: BP 79/54
[2023-06-22 16:20] LABS: Reflex Troponin-HS? (from REC) Y
[2023-06-22 16:43] VITALS: BP 99/60
[2023-06-22 16:50] LABS: Troponin-I HS 4 pg/mL (3.0-54.0)
[2023-06-22 16:50] LABS: Lactic Acid 1.5 mmol/L (0.4-1.9)
[2023-06-22 18:03] VITALS: BP 107/75; PULSE 84; RESP 18; O2SAT 98
--- NOTE | 2023-06-22 21:47 | NURSING ---
WAS INFORMED AT SHIFT CHANGE THAT [facility] WAS TO ARRIVE AT 8PM. AT 8:40PM THEY HAD NOT ARRIVED YET SO I CALLED AND WAS TOLD IT WOULD BE ANOTHER 30 MINUTES. AT 9:45PM STILL NO [facility] SO I CALLED AGAIN AND WAS TOLD ANOTHER 15 MINUTES FOR THE [facility] TO ARRIVE.
== END 2023-06-22 22:32 | disposition home or self-care (01) ==
PROVIDERS: Emergency Provider Emergency Medicine; PCP Family Medicine; Visit Provider Emergency Medicine
DX: I95.9 Hypotension, unspecified (principal); G82.20 Paraplegia, unspecified; R07.89 Other chest pain; F17.210 Nicotine dependence, cigarettes, uncomplicated; D64.9 Anemia, unspecified; R79.89 Other specified abnormal findings of blood chemistry; F41.8 Other specified anxiety disorders; N31.9 Neuromuscular dysfunction of bladder, unspecified; Z79.899 Other long term (current) drug therapy; Z79.01 Long term (current) use of anticoagulants; Z86.718 Personal history of other venous thrombosis and embolism
CPT/HCPCS: 71045; 80048; 83605; 84484; 85025; 93005; 96360; 96361; 99285; J7030; A4216

== ENCOUNTER 2023-12-20 11:13 | Observation (INO) | payer MEDICAID, SELFPAY ==
[2023-12-20 11:14] VITALS: BP 95/77; PULSE 114; RESP 16; TEMP 36.8; O2SAT 100; BMI 19.5
--- NOTE | 2023-12-20 11:37 | EDS_ITS ---
HPI <DEMOND Aguilar - Last Filed: 12/20/23 17:03> History of Present Illness Chief Complaint: General Illness Narrative Narrative: Patient presenting today due to fatigue, nausea, decreased appetite, body aches, and diarrhea that she has had since Sunday. She reports she had a subjective fever on Sunday. She reports that she has a history of C. difficile but this does not seem like C. difficile to her, no recent antibiotic use. 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 She is unable to feel from her waist down. She is unsure if her stomach hurts or not. She reports a history of hepatitis C that was never treated. Last week she had blood work performed that showed elevated liver enzymes, she was referred to a GI doctor but does not see them until next month. She reports that she feels dehydrated and has noticed the urine in her Charles bag is dark. [facility] <DEMOND Aguilar - Last Filed: 12/20/23 17:03> [facility] Medical History Anxiety and depression Chronic hypotension Chronic indwelling Charles catheter DVT (deep venous thrombosis) Esophageal reflux Hepatitis C History of intravenous drug abuse Kidney stones Neurogenic bladder Paraplegia Spinal abscess Home Medications baclofen 20 mg tablet 30 mg PO 4X/DAY muscle spasm 10/19/19 [History Last Taken 05/20/23] duloxetine 60 mg capsule,delayed release 60 mg PO DAILY depression 10/19/19 [History Last Taken 05/20/23] oxybutynin chloride 10 mg tablet,extended release 24 hr 10 mg PO DAILY bladder 12/24/19 [History Last Taken 05/20/23] gabapentin 100 mg capsule 800 mg PO 4X/DAY paraplegia/nerve pain 05/02/20 [History Last Taken 05/20/23] clonazepam 0.5 mg tablet 0.5 mg PO TID PRN Anxiety #9 tabs 07/05/20 [Rx Last Taken 05/20/23] cilostazol 50 mg tablet 50 mg PO BID antiplatelet 08/15/22 [History Last Taken 05/20/23] meloxicam 15 mg tablet 15 mg PO DAILY spasms 08/15/22 [History Last Taken 05/20/23] ergocalciferol (vitamin D2) 1,250 mcg (50,000 unit) capsule 1,250 mcg PO DAILY 12/20/23 [History Last Taken Unknown] Allergy/AdvReac Type Severity Reaction Status Date / Time Penicillins AdvReac PT UNSURE Verified 06/22/23 13:23 OF REACTION Family History Mother Multiple sclerosis Surgical History History of suprapubic catheter History of surgery on lower extremity Hx of spinal surgery S/P debridement Social History household members: none Smoking Status: Current every day smoker tobacco type: cigarettes alcohol intake: current Alcohol type: other substance use type: former substance user Date of last use: Prior history of IV drug abuse with heroin and methamphetamine. ROS <DEMOND Aguilar - Last Filed: 12/20/23 17:03> ROS ED Constitutional Constitutional ED: Reports chills, fever(s) and subjective Cardiovascular Cardiovascular: Denies chest pain Respiratory/Chest Respiratory/Chest: Denies cough or dyspnea Gastrointestinal Gastrointestinal: Reports diarrhea and nausea; Denies hematochezia, melena or vomiting Musculoskeletal Musculoskeletal: Denies arthralgias or myalgias Integumentary Denies rash Neurologic Neurologic: Reports weakness EXAM <DEMOND Aguilar - Last Filed: 12/20/23 17:03> Physical Exam Const Vital Signs: 12/20/23 11:14 12/20/23 11:14 12/20/23 12:00 Temperature 98.2 F 98.2 F Temperature Source Temporal Temporal Pulse Rate 114 H 75 Respiratory Rate 16 16 Respiratory Effort Normal Respiratory Pattern Normal Blood Pressure 95/77 95/77 Blood Pressure Mean 83 83 Pulse Ox 100 99 Oxygen Delivery Method Room Air Room Air 12/20/23 12:14 12/20/23 15:29 Temperature 97.2 F L Temperature Source Pulse Rate 65 110 H Respiratory Rate 16 18 Respiratory Effort Respiratory Pattern Blood Pressure 115/80 94/64 Blood Pressure Mean 91 74 Pulse Ox 98 98 Oxygen Delivery Method Room Air Positive well nourished, well developed and no apparent distress General Appearance ED: well developed HEENT Reports normocephalic and head/scalp atraumatic Mouth ED: Yes moist mucous membranes normal Eyes PERRL and EOMs intact bilaterally Neck full ROM and supple Chest Wall inspection of chest normal Resp normal respiratory effort and clear to auscultation bilaterally Cardio regular rate and regular rhythm GI non-distended and no masses Back/Spine normal ROM and normal to inspection Extremity normal to inspection Extremity Narrative: History of paraplegia, patient is able to move her upper extremities. Neuro oriented x3, CN's II-XII intact bilaterally and no sensory deficits noted Sensorium / Orientation: awake and alert Psych mental status grossly normal and thought process normal Skin no rashes or lesions noted and no wounds <Dr. Gregoria Moon DO - Last Filed: 12/20/23 22:15> Physical Exam Const Vital Signs: 12/20/23 11:14 12/20/23 11:14 12/20/23 12:00 Temperature 98.2 F 98.2 F Temperature Source Temporal Temporal Pulse Rate 114 H 75 Respiratory Rate 16 16 Respiratory Effort Normal Respiratory Pattern Normal Blood Pressure 95/77 95/77 Blood Pressure Mean 83 83 Pulse Ox 100 99 Oxygen Delivery Method Room Air Room Air 12/20/23 12:14 12/20/23 15:29 Temperature 97.2 F L Temperature Source Pulse Rate 65 110 H Respiratory Rate 16 18 Respiratory Effort Respiratory Pattern Blood Pressure 115/80 94/64 Blood Pressure Mean 91 74 Pulse Ox 98 98 Oxygen Delivery Method Room Air [facility] <DEMOND Aguilar - Last Filed: 12/20/23 17:03> [facility] Narrative Medical decision making narrative: Patient presenting due to weakness, diarrhea, nausea, and overall feeling unwell. History of paraplegia, she is unable to tell me if her abdomen hurts, therefore, CT of the abdomen and pelvis will be obtained to rule out abdominal etiology. Labs obtained to rule out leukocytosis, anemia, electrolyte abnormality, MIKE, UTI, and hepatobiliary etiology. Stool culture will be obtained if patient is able to give a sample. She will be given IV fluids, Toradol, and Zofran. CT of the abdomen pelvis was obtained and shows a left ovarian cyst, radiologist recommend correlation with ultrasound, this was obtained and shows redemonstration of the ovarian cyst, no ovarian torsion. UA suggestive of UTI, culture was obtained, we will hold off on treating with antibiotics at this time and await culture results given she does have a indwelling Charles catheter. She does have low potassium at 2.9, replacement given here. I do think that she would benefit from admission to the hospital and patient agrees. Discussed case with hospitalist and she will be admitted in stable condition. We will attempt to obtain stool cultures to rule out C. difficile and other pathogens. I have personally performed a face to face assessment of the patient and have reviewed the KJ Note. I performed a substantive portion of the visit including all aspects of the following. My díaz findings include: History is [patient presents the emergency department with complaint of diarrhea that she states started 2 days ago. She is having frequent watery stools but states it does not smell like C. difficile which she has had in the past. She has not had any recent antibiotics. Patient also states that she has history of hep C and she has had elevated enzymes of recent and was referred to a supervisor blood to follow-up with in January. Patient states when this illness started she had some nausea and some dry heaves and subjective fever but she did not take her temperature. She had some chills. Patient is paraplegic from prior spinal abscess and does not have any sensation to her abdomen but her legs sometimes spasm wonder something going on with her abdomen they have been spasming. Patient also has an indwelling Charles catheter. She has had prior gallbladder resection and prior C-sections. Patient feels fatigued. She thinks she is dehydrated.] Exam is [HEENT-PERRLA, EOMI. Cranial nerves II through XII grossly intact. TMs clear. Mucous membranes moist. No adenopathy. Cardiovascular-regular rate and rhythm without murmur or ectopy Lungs-clear to auscultation, chest wall stable without crepitus or subcu emphysema Abdomen-normoactive bowel sounds, soft, nontender, no rebound or rigidity, no peritoneal signs. Extremities-intact ?4, normal range of motion, normal pulses, atraumatic] Medical Decison Making [patient presents with diarrhea. Complaint of dehydration. She had some fever and chills. Will obtain basic labs and give IV fluids. Will obtain a CT scan of the abdomen pelvis. Patient also will have stool sent for C. difficile as well as ova and parasites and enteric pathogen's. Urine will be sent. Will check for COVID influenza and RSV.] Patient noted on CT to have a left ovarian cyst and they recommended we obtain a pelvic ultrasound to evaluate further. Pelvic ultrasound showed just a large septated cyst without evidence for torsion. CBC with differential obtained on arrival showing count 12.1 with hemoglobin 12.5 and platelets 263. Chemistries unremarkable other than a potassium of 2.9 for which I did give her 40 mEq of potassium chloride p.o. Lactate was normal at 1.1. Urinalysis positive for nitrites and 500 leukocyte esterase but only 0-5 WBCs and +1 bacteria. I did send off a culture. We did order stool for culture as well as C. difficile and enteric pathogens however she was unable to give a sample as of yet. On arrival we did give her IV fluids and ordered Imodium. Case discussed with hospitalist will evaluate patient for admission for diagnosis of diarrhea and dehydration as well as hypokalemia. Other additions or changes: [None] Lab Data Lab results narrative: WBC 12.1, potassium 2.9 Labs: Laboratory Results - last 24 hr 12/20/23 12/20/23 12/20/23 11:20 11:40 11:43 WBC 12.1 H RBC 5.21 Hgb 12.5 Hct 41.1 MCV 78.9 L MCH 24.0 L MCHC 30.4 L RDW Std Deviation 47.0 H RDW Coeff of Domonique 16.5 H Plt Count 263 MPV 10.9 Immature Gran % (Auto) 0.400 Neut % (Auto) 73.8 H Lymph % (Auto) 20.7 [place] % (Auto) 4.5 Eos % (Auto) 0.2 Baso % (Auto) 0.4 Absolute Neuts (auto) 9.0 H Absolute Lymphs (auto) 2.51 Nucleated RBC % 0 Sodium 140 Potassium 2.9 L Chloride 108 H Carbon Dioxide 28.0 Anion Gap 4 L BUN 12 Creatinine 0.54 L Estim Creat Clear Calc 143.76 Est GFR (MDRD) Af Amer 160 Est GFR (MDRD) Non-Af 133 BUN/Creatinine Ratio 22.4 H Glucose 85 Lactic Acid 1.1 Calcium 8.8 Total Bilirubin 0.50 AST 20 ALT 39 Alkaline Phosphatase 113 Total Protein 7.1 Albumin 3.4 Globulin 3.7 Albumin/Globulin Ratio 0.9 Lipase 14 Urine Color Yellow Urine Clarity Cloudy Urine pH 6.5 Ur Specific [place] 1.020 Urine Protein 100 H Urine Glucose (UA) Normal Urine Ketones 150 A* Urine Occult Blood 25 H Urine Nitrite Positive H Urine Bilirubin 1 H Urine Urobilinogen 1 H Ur Leukocyte Esterase 500 H Urine RBC 0 SEEN Urine WBC 0-5 SEEN Ur Squamous Epith Cells 0 SEEN Amorphous Sediment 1+ Urine Bacteria 1+ Urine Mucus 0 SEEN Radiography Diagnostic Testing: Clinical Impression(s) from Imaging Studies Abdomen/Pelvis CT 12/20/23 11:37 IMPRESSION: Left ovarian cyst. Prominence of the left ovary. Correlation with ultrasound is recommended. Small follicle in the right ovary. Electronically Signed: Ashish Villatoro MD at 12:52 EST , Pelvis Ultrasound 12/20/23 13:26 IMPRESSION: Enlargement of the left ovary. There is a 3.2 cm x 3.3 cm x 3.3 cm septated cyst in the left ovary. Electronically Signed: Ashish Villatoro MD at 14:32 EST , <Dr. Gregoria Moon, DO - Last Filed: 12/20/23 22:15> [facility] Narrative Medical decision making narrative: Patient presenting due to weakness, diarrhea, nausea, and overall feeling unwell. History of paraplegia, she is unable to tell me if her abdomen hurts, therefore, CT of the abdomen and pelvis will be obtained to rule out abdominal etiology. Labs obtained to rule out leukocytosis, anemia, electrolyte abnormality, MIKE, UTI, and hepatobiliary etiology. Stool culture will be obtained if patient is able to give a sample. She will be given IV fluids, Toradol, and Zofran. I have personally performed a face to face assessment of the patient and have reviewed the KJ Note. I performed a substantive portion of the visit including all aspects of the following. My díaz findings include: History is [patient presents the emergency department with complaint of diarrhea that she states started 2 days ago. She is having frequent watery stools but states it does not smell like C. difficile which she has had in the past. She has not had any recent antibiotics. Patient also states that she has history of hep C and she has had elevated enzymes of recent and was referred to a supervisor blood to follow-up with in January. Patient states when this illness started she had some nausea and some dry heaves and subjective fever but she did not take her temperature. She had some chills. Patient is paraplegic from prior spinal abscess and does not have any sensation to her abdomen but her legs sometimes spasm wonder something going on with her abdomen they have been spasming. Patient also has an indwelling Charles catheter. She has had prior gallbladder resection and prior C-sections. Patient feels fatigued. She thinks she is dehydrated.] Exam is [HEENT-PERRLA, EOMI. Cranial nerves II through XII grossly intact. TMs clear. Mucous membranes moist. No adenopathy. Cardiovascular-regular rate and rhythm without murmur or ectopy Lungs-clear to auscultation, chest wall stable without crepitus or subcu emphysema Abdomen-normoactive bowel sounds, soft, nontender, no rebound or rigidity, no peritoneal signs. Extremities-intact ?4, normal range of motion, normal pulses, atraumatic] Medical Decison Making [patient presents with diarrhea. Complaint of dehydration. She had some fever and chills. Will obtain basic labs and give IV fluids. Will obtain a CT scan of the abdomen pelvis. Patient also will have stool sent for C. difficile as well as ova and parasites and enteric pathogen's. Urine will be sent. Will check for COVID influenza and RSV.] Patient noted on CT to have a left ovarian cyst and they recommended we obtain a pelvic ultrasound to evaluate further. Pelvic ultrasound showed just a large septated cyst without evidence for torsion. CBC with differential obtained on arrival showing count 12.1 with hemoglobin 12.5 and platelets 263. Chemistries unr emarkable other than a potassium of 2.9 for which I did give her 40 mEq of potassium chloride p.o. Lactate was normal at 1.1. Urinalysis positive for nitrites and 500 leukocyte esterase but only 0-5 WBCs and +1 bacteria. I did send off a culture. We did order stool for culture as well as C. difficile and enteric pathogens however she was unable to give a sample as of yet. On arrival we did give her IV fluids and ordered Imodium. Case discussed with hospitalist will evaluate patient for admission for diagnosis of diarrhea and dehydration as well as hypokalemia. Other additions or changes: [None] Lab Data Attestation: I reviewed the patient's lab results. Labs: Laboratory Results - last 24 hr 12/20/23 12/20/23 12/20/23 11:20 11:40 11:43 WBC 12.1 H RBC 5.21 Hgb 12.5 Hct 41.1 MCV 78.9 L MCH 24.0 L MCHC 30.4 L RDW Std Deviation 47.0 H RDW Coeff of Domonique 16.5 H Plt Count 263 MPV 10.9 Immature Gran % (Auto) 0.400 Neut % (Auto) 73.8 H Lymph % (Auto) 20.7 [place] % (Auto) 4.5 Eos % (Auto) 0.2 Baso % (Auto) 0.4 Absolute Neuts (auto) 9.0 H Absolute Lymphs (auto) 2.51 Nucleated RBC % 0 Sodium 140 Potassium 2.9 L Chloride 108 H Carbon Dioxide 28.0 Anion Gap 4 L BUN 12 Creatinine 0.54 L Estim Creat Clear Calc 143.76 Est GFR (MDRD) Af Amer 160 Est GFR (MDRD) Non-Af 133 BUN/Creatinine Ratio 22.4 H Glucose 85 Lactic Acid 1.1 Calcium 8.8 Total Bilirubin 0.50 AST 20 ALT 39 Alkaline Phosphatase 113 Total Protein 7.1 Albumin 3.4 Globulin 3.7 Albumin/Globulin Ratio 0.9 Lipase 14 Urine Color Yellow Urine Clarity Cloudy Urine pH 6.5 Ur Specific [place] 1.020 Urine Protein 100 H Urine Glucose (UA) Normal Urine Ketones 150 A* Urine Occult Blood 25 H Urine Nitrite Positive H Urine Bilirubin 1 H Urine Urobilinogen 1 H Ur Leukocyte Esterase 500 H Urine RBC 0 SEEN Urine WBC 0-5 SEEN Ur Squamous Epith Cells 0 SEEN Amorphous Sediment 1+ Urine Bacteria 1+ Urine Mucus 0 SEEN Radiography Diagnostic Testing: Clinical Impression(s) from Imaging Studies Abdomen/Pelvis CT 12/20/23 11:37 IMPRESSION: Left ovarian cyst. Prominence of the left ovary. Correlation with ultrasound is recommended. Small follicle in the right ovary. Electronically Signed: Ashish Villatoro MD at 12:52 EST , Pelvis Ultrasound 12/20/23 13:26 IMPRESSION: Enlargement of the left ovary. There is a 3.2 cm x 3.3 cm x 3.3 cm septated cyst in the left ovary. Electronically Signed: Ashish Villatoro MD at 14:32 EST , Discharge Plan Dx/Rx/DC Orders Clinical Impression: Acute dehydration, Diarrhea, Acute hypokalemia, Ovarian cyst Disposition Disposition: Acute Care Hospital [facility] Discharge Date/Time: 12/20/23 18:54
--- NOTE | 2023-12-20 11:37 | CT_ITS ---
STUDY: CT ABDOMEN AND PELVIS WITH CONTRAST REASON FOR EXAM: Female, 43 years old. Abdominal pain RADIATION DOSAGE (If Supplied By Facility): CTDIvol = ( 8.06 ) mGy, DLP = ( 347.40 ) mGycm TECHNIQUE: Transaxial images were obtained from the dome of the diaphragm to the symphysis pubis without oral contrast. IV 100mL Isovue-300 was administered. Sagittal and coronal images were reconstructed. Individualized dose optimization techniques were used for this CT. COMPARISON: Comparison is made with prior study August 15, 2022. FINDINGS: The visualized lung bases are unremarkable. The visualized portions of the heart are within normal limits. Normal liver. The patient is status post cholecystectomy. Borderline splenomegaly. Normal pancreas. Normal bilateral adrenal glands. Normal right kidney. Normal left kidney. There is a small hiatal hernia. Normal small intestine. Normal colon. The appendix is visualized and appears normal. Normal abdominal aorta. Normal inferior vena cava. Normal retroperitoneum. A suprapubic catheter is seen within a decompressed urinary bladder. There is a 2.3 cm septated cyst in the left ovary. A small follicle seen in the right ovary. I suspect enlargement of the left ovary measuring 3 cm x 3.9 cm. Correlation with ultrasound is recommended. Evidence of bilateral tubal ligation. Normal abdominal wall. There are diffuse degenerative changes of the visualized lumbar spine. Loss of the normal lumbar lordosis. CT/Abdomen/Pelvis W IV Cont ONLY IMPRESSION: Left ovarian cyst. Prominence of the left ovary. Correlation with ultrasound is recommended. Small follicle in the right ovary. Electronically Signed: Ashish Villatoro MD at 12:52 EST ,
[2023-12-20 11:42] LABS: Absolute Lymphocyte Count 2.51 X10^3/uL (0.83-4.51); Basophil# 0.05 X10^3/uL; Basophil% 0.4 % (0-1); Eosinophil# 0.02 X10^3/uL; Eosinophils% 0.2 % (0-5); Hematocrit 41.1 % (37-47); Hemoglobin 12.5 g/dL (12.0-15.0); Lymphocyte # 2.51 X10^3/ul (0.83-4.51); Lymphocyte % 20.7 % (19-41); Mean Corp Hgb Conc 30.4 g/dL (32-36); Mean Corpuscular Volume 78.9 fL (81-99); Mean Platelet Vol. 10.9 fl (6.2-12.0); Monocyte# 0.54 X10^3/uL; Monocyte% 4.5 % (0-10); NRBC Flagged by Analyzer 0 % (0-5); Neutrophil # 8.95 X10^3/uL (2.7-7.7); Neutrophil % 73.8 % (47-70); Platelet Count 263 K/mm3 (150-450); RBC Distribution Width CV 16.5 % (11.6-14.6); Red Blood Count 5.21 M/mm3 (4.2-5.4); White Blood Count 12.1 K/mm3 (4.4-11.0)
[2023-12-20 11:49] LABS: Mucous, Urine 0 SEEN /hpf (<or=2+); Red Blood Cells-Urine 0 SEEN /hpf (0-5); Squamous Epithelial Cells - UA 0 SEEN /hpf (5-10)
[2023-12-20] MEDS: Ondansetron 4 MG/2 ML Vial IV (11:50)
[2023-12-20] MEDS: 0.9% Normal Saline (1000mL) 1,000 ML 1000 ML IV (11:50)
[2023-12-20] MEDS: Ketorolac 15 MG/ML Vial IV (11:50)
[2023-12-20 11:56] LABS: Color, Urine Yellow (Yellow); Glucose, Dipstick Normal (Normal); Leukocyte Esterase-Dipstick 500 /ul (Negative); Nitrite-Dipstick Positive (Negative); Occult Blood-Urine 25 /ul (Negative); Protein-Dipstick 100 mg/dl (Negative); Urine Bilirubin Dipstick 1 mg/dL (Negative); Urine Clarity Cloudy (Clear); Urine Urobilinogen 1 mg/dl (Normal); Urine pH 6.5 (5.0 - 8.0)
[2023-12-20 11:58] LABS: ALB/GLOB Ratio 0.9 RATIO (0.9-2.4); AST(SGOT) 20 U/L (15-37); Alanine Aminotransfer ALT/SGPT 39 U/L (13-56); Albumin, Serum 3.4 g/dL (3.2-5.0); Alkaline Phosphatase 113 U/L (45-117); Anion Gap 4 (5-15); BUN 12 mg/dL (7-18); BUN/Creat Ratio 22.4 RATIO (10-20); Calcium,Total 8.8 mg/dL (8.5-10.1); Chloride 108 mmol/L (98-107); Creatinine, Serum 0.54 mg/dL (0.55-1.02); EST Glomerular Filtration Rate 133 mL/min (>60); Est Glom Filt Rate - Afr Amer 160 mL/min (>60); Estimated Creatinine Clearance 143.76 ml/min; Globulin 3.7 g/dL (2.2-4.2); Glucose 85 mg/dL (74-106); Lipase 14 U/L (13-75); Potassium 2.9 mmol/L (3.5-5.1); Protein, Total 7.1 g/dL (6.4-8.2); Sodium Level 140 mmol/L (136-145)
[2023-12-20 11:58] LABS: Ketone-Dipstick 150 mg/dl (Negative)
[2023-12-20 12:00] VITALS: BP 95/77; PULSE 75; RESP 16; TEMP 36.8; O2SAT 99
[2023-12-20 12:09] LABS: Lactic Acid 1.1 mmol/L (0.4-1.9)
[2023-12-20 12:14] VITALS: BP 115/80; PULSE 65; RESP 16; O2SAT 98
[2023-12-20 12:43] LABS: Amorphous Sediment 1+; Bacteria 1+ /hpf (None Seen); White Blood Cells 0-5 SEEN /hpf (0-5)
[2023-12-20] MEDS: Potassium Chloride Oral Tablet 20 MEQ 40 MEQ PO ×2 (13:01→19:49)
[2023-12-20] MEDS: Loperamide 2 MG Capsule 4 MG PO (13:01)
--- NOTE | 2023-12-20 13:26 | US_ITS ---
STUDY: ULTRASOUND OF THE FEMALE PELVIS - COMPLETE REASON FOR EXAM: Female, 43 years old. Pain LMP: Unknown. TECHNIQUE: Transabdominal TECHNICAL QUALITY: Adequate. COMPARISON: None. FINDINGS: The uterus is anteverted and is in a midline position. The uterus measures 8.9 cm x 7 cm x 6.3 cm. Normal uterine cervix. The endometrium measures 14 mm in thickness, and is hyperechoic. There is no demonstrated endometrial mass. There is no demonstrated myometrial mass. I.U.D. - The patient does not have an I.U.D. The right ovary is visualized. The right ovary measures 3.2 cm x 2.9 cm x 2.1 cm. There is no right ovarian cyst or ovarian mass. There is no visualized right adnexal mass or complex lesion. There is normal arterial and normal venous vascularity. The left ovary is visualized. The left ovary is enlarged and measures 6 cm x 4.5 cm x 3.6 cm. There is a 3.2 cm by 3.3 cm x 3.3 cm septated cyst in the left ovary. There is no visualized left adnexal mass or complex lesion. There is normal arterial and normal venous vascularity. There is no fluid in the cul-de-sac. A Charles catheter is seen within the urinary bladder. US/Pelvic (Non ) IMPRESSION: Enlargement of the left ovary. There is a 3.2 cm x 3.3 cm x 3.3 cm septated cyst in the left ovary. Electronically Signed: Ashish Villatoro MD at 14:32 EST ,
[2023-12-20 15:29] VITALS: BP 94/64; PULSE 110; RESP 18; TEMP 36.2; O2SAT 98
[2023-12-20] MEDS: clonazePAM 0.5 MG Tablet PO ×2 (15:44→23:39)
[2023-12-20] MEDS: Baclofen 10 MG Tablet 30 MG PO ×2 (15:44→21:20)
[2023-12-20] MEDS: Gabapentin 800 MG Tablet PO ×2 (15:45→21:19)
[2023-12-20 16:42] VITALS: BP 94/63; PULSE 89; RESP 16; O2SAT 98
--- NOTE | 2023-12-20 18:50 | PCM.HP.STD ---
HPI - General General Date of Admission: 12/20/23 Date of Service: 12/20/23 Chief Complaint: Generalized weakness, diarrhea x 2 days HPI Narrative ROGELIO MARRERO, is a 43 F who presents to the emergency room at [facility] with complaints of diarrhea over the last 2 days, the day before on Sunday, she had vomiting. Patient is paraplegic and has a chronic suprapubic catheter, she denies any chills or fever at home. According to the medical records, patient has a past history of C. difficile colonization of the colon. She told the emergency room physician and myself that she does not feel it is C. difficile because the diarrhea is different . Workup in the emergency room included a CBC which showed an elevated white blood cell count at 12.1, chemistry panel was remarkable for a potassium of 2.9, patient's UA showed positive urine ketones, positive urine nitrite, 500 leukocyte esterase, 0 RBCs, 0-5 WBCs, and +[address] of the abdomen pelvis showed a left ovarian cyst, there is prominence of left ovary. Ultrasound of the pelvis showed a 2.3 cm x 3.3 cm x 3.3 cm septated cyst in the left ovary. Patient will be placed into observation status on MedSurg 3, she will be given IV fluids and potassium replacement, I have elected to place her on oral vancomycin for now, stool was ordered for C. difficile, she has not had a bowel movement since she was in the emergency room today. Labs will be monitored. [facility] Medical History Anxiety and depression Chronic hypotension Chronic indwelling Charles catheter DVT (deep venous thrombosis) Esophageal reflux Hepatitis C History of intravenous drug abuse Kidney stones Neurogenic bladder Paraplegia Spinal abscess Home Medications baclofen 20 mg tablet 30 mg PO 4X/DAY muscle spasm 10/19/19 [History Last Taken 05/20/23] duloxetine 60 mg capsule,delayed release 60 mg PO DAILY depression 10/19/19 [History Last Taken 05/20/23] oxybutynin chloride 10 mg tablet,extended release 24 hr 10 mg PO DAILY bladder 12/24/19 [History Last Taken 05/20/23] gabapentin 100 mg capsule 800 mg PO 4X/DAY paraplegia/nerve pain 05/02/20 [History Last Taken 05/20/23] clonazepam 0.5 mg tablet 0.5 mg PO TID PRN Anxiety #9 tabs 07/05/20 [Rx Last Taken 05/20/23] cilostazol 50 mg tablet 50 mg PO BID antiplatelet 08/15/22 [History Last Taken 05/20/23] meloxicam 15 mg tablet 15 mg PO DAILY spasms 08/15/22 [History Last Taken 05/20/23] ergocalciferol (vitamin D2) 1,250 mcg (50,000 unit) capsule 12/20/23 [History Last Taken Unknown] Allergy/AdvReac Type Severity Reaction Status Date / Time Penicillins AdvReac PT UNSURE Verified 06/22/23 13:23 OF REACTION Family History Mother Multiple sclerosis Surgical History History of suprapubic catheter History of surgery on lower extremity Hx of spinal surgery S/P debridement Social History household members: none Smoking Status: Current every day smoker tobacco type: cigarettes alcohol intake: current Alcohol type: other substance use type: former substance user Date of last use: Prior history of IV drug abuse with heroin and methamphetamine. ROS Constitutional Constitutional: Reports fatigue and weakness; Denies anorexia, change in weight, chills, fever(s) or night sweats Eyes Eyes: Denies blurry vision, change in vision, discharge from eye(s) or eye pain Cardiovascular Cardiovascular: Denies chest pain, claudication, dyspnea on exertion, edema or palpitations Respiratory/Chest Respiratory/Chest: Denies cough, hemoptysis, shortness of breath at rest or shortness of breath with exertion Gastrointestinal Gastrointestinal: Reports diarrhea and vomiting; Denies abdominal pain, constipation, hematemesis, hematochezia, melena or nausea Genitourinary Genitourinary: Denies dysuria, hematuria, urinary frequency, urinary hesitancy, urinary incontinence or urinary urgency Musculoskeletal Musculoskeletal: Denies back pain, joint pain, joint stiffness, joint swelling, myalgias or neck pain Neurologic Neurologic: Denies abnormal gait, abnormal speech, dizziness, focal weakness, headache(s), loss of vision, numbness, other visual disturbances, paresthesias, syncope or tingling Psychiatric Psychiatric: Denies anxiety, cognitive impairment, depression, irritability, mood swings or suicidal ideation Endocrine Endocrinology: Denies change in body appearance, cold intolerance, excessive sweating, heat intolerance, polydipsia or polyuria Hematologic/Lymphatic Hematologic/Lymphatic: Denies none, anemia, easy bleeding, easy bruising or lymphadenopathy Allergic/Immunologic Allergic/Immunologic: Denies rhinitis, urticaria, eczemia or asthma Vital Signs Vital Signs Vital Signs: 12/20/23 11:14 12/20/23 11:14 12/20/23 12:00 Temperature 98.2 F 98.2 F Temperature Source Temporal Temporal Pulse Rate 114 H 75 Respiratory Rate 16 16 Respiratory Effort Normal Respiratory Pattern Normal Blood Pressure 95/77 95/77 Blood Pressure Mean 83 83 Pulse Ox 100 99 Oxygen Delivery Method Room Air Room Air 12/20/23 12:14 12/20/23 15:29 12/20/23 16:42 Temperature 97.2 F L Temperature Source Pulse Rate 65 110 H 89 Respiratory Rate 16 18 16 Respiratory Effort Respiratory Pattern Blood Pressure 115/80 94/64 94/63 Blood Pressure Mean 91 74 73 Pulse Ox 98 98 98 Oxygen Delivery Method Room Air Room Air Weight Weight: 67.1 kg Body Mass Index (BMI) 19.5 Physical Exam Const alert, oriented x3, no apparent distress and average body habitus Constitutional Narrative: Patient appears older than her stated age General Appearance: cooperative, well kempt and well developed Orientation / Consciousness: awake, oriented to person, oriented to place and oriented to time HEENT normocephalic and head/scalp atraumatic HEENT Narrative: Mucous membranes are dry Eyes PERRL, EOMs intact bilaterally and conjunctivae normal Neck supple, no JVD, thyroid normal and no carotid bruits General: trachea midline Resp normal respiratory effort, no retractions, no use of accessory muscles and clear to auscultation bilaterally Auscultation: Negative for rales, rhonchi or wheezes Cardio regular rate, regular rhythm, S1 normal heart sound, S2 normal heart sound, no murmurs, no rub and no gallops GI normal to inspection, nondistended, normoactive bowel sounds, soft to palpation, non-tender and non-distended GI Narrative: Suprapubic catheter is in place Extremity no clubbing, cyanosis or edema Extremity Narrative: Patient has atrophy of the lower extremities Skin no rashes or lesions noted General Skin Exam: no breakdown Neuro oriented x3 and CN's II-XII intact bilaterally Neuro Narrative: Patient is paraplegic Sensorium / Orientation: awake and alert Speech: speech normal Psych affect normal Results Lab / Micro Data 12/20/23 11:20 12/20/23 11:20 Labs: Laboratory Results - last 24 hr 12/20/23 11:20: WBC 12.1 H, RBC 5.21, Hgb 12.5, Hct 41.1, MCV 78.9 L, MCH 24.0 L, MCHC 30.4 L, RDW Std Deviation 47.0 H, RDW Coeff of Domonique 16.5 H, Plt Count 263, MPV 10.9, Immature Gran % (Auto) 0.400, Neut % (Auto) 73.8 H, Lymph % (Auto) 20.7, [place] % (Auto) 4.5, Eos % (Auto) 0.2, Baso % (Auto) 0.4, Absolute Neuts (auto) 9.0 H, Absolute Lymphs (auto) 2.51, Nucleated RBC % 0, Sodium 140, Potassium 2.9 L, Chloride 108 H, Carbon Dioxide 28.0, Anion Gap 4 L, BUN 12, Creatinine 0.54 L, Estim Creat Clear Calc 143.76, Est GFR (MDRD) Af Amer 160, Est GFR (MDRD) Non-Af 133, BUN/Creatinine Ratio 22.4 H, Glucose 85, Calcium 8.8, Total Bilirubin 0.50, AST 20, ALT 39, Alkaline Phosphatase 113, Total Protein 7.1, Albumin 3.4, Globulin 3.7, Albumin/Globulin Ratio 0.9, Lipase 14 12/20/23 11:40: Lactic Acid 1.1 12/20/23 11:43: Urine Color Yellow, Urine Clarity Cloudy, Urine pH 6.5, Ur Specific [place] 1.020, Urine Protein 100 H, Urine Glucose (UA) Normal, Urine Ketones 150 A*, Urine Occult Blood 25 H, Urine Nitrite Positive H, Urine Bilirubin 1 H, Urine Urobilinogen 1 H, Ur Leukocyte Esterase 500 H, Urine RBC 0 SEEN, Urine WBC 0-5 SEEN, Ur Squamous Epith Cells 0 SEEN, Amorphous Sediment 1+, Urine Bacteria 1+, Urine Mucus 0 SEEN Micro: Microbiology 12/20/23 11:43 Mucosa - Nose SARS-CoV-2, Influenza & RSV (PCR) - Final Imaging Radiology Impression Abdomen/Pelvis CT 12/20/23 11:37 IMPRESSION: Left ovarian cyst. Prominence of the left ovary. Correlation with ultrasound is recommended. Small follicle in the right ovary. Electronically Signed: Ashish Villatoro MD at 12:52 EST , Pelvis Ultrasound 12/20/23 13:26 IMPRESSION: Enlargement of the left ovary. There is a 3.2 cm x 3.3 cm x 3.3 cm septated cyst in the left ovary. Electronically Signed: Ashish Villatoro MD at 14:32 EST , Assessment & Plan Assessment/Plan (1) Acute hypokalemia: PLAN: Plan 1. Hypokalemia secondary to fluid loss (vomiting, diarrhea)-patient will be placed in observation status on MedSurg 3, potassium supplementation will be administered, she will be given IV fluids and labs will be monitored. #2 diarrhea-etiology unclear, due to her past history of C. difficile colonization, I have elected to place her on oral vancomycin, stool for enteric pathogens and C. difficile were ordered #3 clinical dehydration-patient will be given IV fluids #4 paraplegia-complicates care, medical course, recovery, and prognosis #5 bacteriuria with pyuria-patient has a chronic suprapubic catheter, she is not complaining of any fevers or chills and she is afebrile here, I have elected not to treat her for a urinary tract infections at this time. Total clinical time spent by myself addressing the patient's medical issues, reviewing all of her data, and collaborating with patient's care team: 55 minutes Charges/Coding Visit Charges Inpatient E&M: 13563 Init Hosp L2
[2023-12-20 19:02] VITALS: BMI 18.6
[2023-12-20 19:04] VITALS: BP 93/55; PULSE 92; RESP 16; TEMP 36.6; O2SAT 95
[2023-12-20] MEDS: 0.9% Normal Saline (1000mL) 1,000 ML 150 ML IV (19:49)
[2023-12-20] MEDS: 0.9% Saline Lock 10 ML Syringe IV (19:49)
[2023-12-20] MEDS: Heparin Injection (Vial) 5,000 UNIT/ML VIAL 5000 UNIT SC (21:19)
[2023-12-20] MEDS: Cilostazol 50 MG Tablet PO (21:19)
[2023-12-20] MEDS: Vancomycin 125 MG/5 ML Susp PO.SYRINGE PO (21:26)
[2023-12-21] MEDS: Vancomycin 125 MG/5 ML Susp PO.SYRINGE PO ×3 (01:16→11:49)
[2023-12-21 01:25] VITALS: BP 103/75; PULSE 78; RESP 16; TEMP 36.6; O2SAT 98
[2023-12-21] MEDS: 0.9% Normal Saline (1000mL) 1,000 ML 150 ML IV ×2 (02:50→09:26)
[2023-12-21 06:59] LABS: Absolute Lymphocyte Count 2.37 X10^3/uL (0.83-4.51); Absolute Neutrophil Count 3.5 X10^3/uL (2.0-7.7); Basophil# 0.04 X10^3/uL; Basophil% 0.6 % (0-1); Eosinophil# 0.08 X10^3/uL; Eosinophils% 1.2 % (0-5); Hematocrit 35.3 % (37-47); Hemoglobin 10.8 g/dL (12.0-15.0); Lymphocyte # 2.37 X10^3/ul (0.83-4.51); Lymphocyte % 36.9 % (19-41); Mean Corp Hgb Conc 30.6 g/dL (32-36); Mean Corpuscular Hgb 24.1 pg (27.0-32.0); Mean Corpuscular Volume 78.6 fL (81-99); Monocyte# 0.46 X10^3/uL; Monocyte% 7.2 % (0-10); NRBC Flagged by Analyzer 0 % (0-5); Neutrophil # 3.45 X10^3/uL (2.7-7.7); Neutrophil % 53.6 % (47-70); Platelet Count 197 K/mm3 (150-450); RBC Distribution Width CV 16.7 % (11.6-14.6); RBC Distribution Width SD 47.6 fl (35.1-43.9); Red Blood Count 4.49 M/mm3 (4.2-5.4); White Blood Count 6.4 K/mm3 (4.4-11.0)
[2023-12-21 07:01] LABS: Anion Gap 2 (5-15); BUN 12 mg/dL (7-18); BUN/Creat Ratio 35.4 RATIO (10-20); Chloride 116 mmol/L (98-107); Creatinine, Serum 0.34 mg/dL (0.55-1.02); EST Glomerular Filtration Rate 225 mL/min (>60); Est Glom Filt Rate - Afr Amer 272 mL/min (>60); Estimated Creatinine Clearance 218.31 ml/min; Glucose 79 mg/dL (74-106); Potassium 4.1 mmol/L (3.5-5.1); Sodium Level 142 mmol/L (136-145)
--- NOTE | 2023-12-21 07:31 | PN.HOSP_ITS ---
Reason for Visit Reason for Visit: Diagnoses Hypokalemia (12/20/23) Subjective Subjective Feels better. No further bowel movements since arriving here yesterday. Patient sent Sunday through , she was having dry heaves as well as greenish watery diarrhea. This is not typical of when she had had C. difficile about a year and a half ago. When she had C. difficile, she was having persistent diarrhea and felt very sick. 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 Objective Data Objective Data Vital Signs: Vital Signs Temp Pulse Resp BP Pulse Ox O2 Del Method 36.6 C 78 16 103/75 98 Room Air 12/21/23 01:25 12/21/23 01:12/21/23 01:25 12/21/23 01:25 12/21/23 01:25 12/21/23 01:25 Oxygen Delivery Method Room Air Weight: 64.155 kg Body Mass Index (BMI) 18.6 Intake & Output: Intake and Output for Last 24 Hours 12/19/23 12/20/23 12/21/23 23:59 23:59 23:59 Intake Total 1300 / 1300 1000 / 1000 Output Total 700 / 700 Balance 1300 / 850 300 / 300 Lab / Micro Data 12/21/23 05:25 12/21/23 05:25 Labs: Laboratory Results - last 24 hr 12/20/23 11:20: WBC 12.1 H, RBC 5.21, Hgb 12.5, Hct 41.1, MCV 78.9 L, MCH 24.0 L , MCHC 30.4 L, RDW Std Deviation 47.0 H, RDW Coeff of Domonique 16.5 H, Plt Count 263, MPV 10.9, Immature Gran % (Auto) 0.400, Neut % (Auto) 73.8 H, Lymph % (Auto) 20.7, [place] % (Auto) 4.5, Eos % (Auto) 0.2, Baso % (Auto) 0.4, Absolute Neuts (auto) 9.0 H, Absolute Lymphs (auto) 2.51, Nucleated RBC % 0, Sodium 140, Potassium 2.9 L, Chloride 108 H, Carbon Dioxide 28.0, Anion Gap 4 L, BUN 12, Creatinine 0.54 L, Estim Creat Clear Calc 143.76, Est GFR (MDRD) Af Amer 160, Est GFR (MDRD) Non-Af 133, BUN/Creatinine Ratio 22.4 H, Glucose 85, Calcium 8.8, Total Bilirubin 0.50, AST 20, ALT 39, Alkaline Phosphatase 113, Total Protein 7.1, Albumin 3.4, Globulin 3.7, Albumin/Globulin Ratio 0.9, Lipase 14 12/20/23 11:40: Lactic Acid 1.1 12/20/23 11:43: Urine Color Yellow, Urine Clarity Cloudy, Urine pH 6.5, Ur Specific [place] 1.020, Urine Protein 100 H, Urine Glucose (UA) Normal, Urine Ketones 150 A*, Urine Occult Blood 25 H, Urine Nitrite Positive H, Urine Bilirubin 1 H, Urine Urobilinogen 1 H, Ur Leukocyte Esterase 500 H, Urine RBC 0 SEEN, Urine WBC 0-5 SEEN, Ur Squamous Epith Cells 0 SEEN, Amorphous Sediment 1+, Urine Bacteria 1+, Urine Mucus 0 SEEN 12/21/23 05:25: WBC 6.4, RBC 4.49, Hgb 10.8 L, Hct 35.3 L, MCV 78.6 L, MCH 24.1 L, MCHC 30.6 L, RDW Std Deviation 47.6 H, RDW Coeff of Domonique 16.7 H, Plt Count 197, MPV 11.0, Immature Gran % (Auto) 0.500, Neut % (Auto) 53.6, Lymph % (Auto) 36.9, [place] % (Auto) 7.2, Eos % (Auto) 1.2, Baso % (Auto) 0.6, Absolute Neuts (auto) 3.5, Absolute Lymphs (auto) 2.37, Nucleated RBC % 0, Sodium 142, Potassium 4.1, Chloride 116 H, Carbon Dioxide 24.0, Anion Gap 2 L, BUN 12, Creatinine 0.34 L, Estim Creat Clear Calc 218.31, Est GFR (MDRD) Af Amer 272, Est GFR (MDRD) Non-Af 225, BUN/Creatinine Ratio 35.4 H, Glucose 79, Calcium 8.0 L Micro: Microbiology 12/20/23 11:43 Mucosa - Nose SARS-CoV-2, Influenza & RSV (PCR) - Final Radiography Diagnostic Testing: Radiology Impression Abdomen/Pelvis CT 12/20/23 11:37 IMPRESSION: Left ovarian cyst. Prominence of the left ovary. Correlation with ultrasound is recommended. Small follicle in the right ovary. Electronically Signed: Ashish Villatoro MD at 12:52 EST , Pelvis Ultrasound 12/20/23 13:26 IMPRESSION: Enlargement of the left ovary. There is a 3.2 cm x 3.3 cm x 3.3 cm septated cyst in the left ovary. Electronically Signed: Ashish Villatoro MD at 14:32 EST , Physical Exam Const alert and no apparent distress HEENT head/scalp atraumatic Resp normal respiratory effort Assessment & Plan Assessment/Plan (1) Acute hypokalemia: PLAN: Plan Hypokalemia * resolved * secondary to fluid loss (vomiting, diarrhea)-patient will be placed in observation status on MedSurg diarrhea * Doubtful this is C. difficile as it began suddenly and was associated with dry heaves and resolved spontaneously. Will discontinue the vancomycin. paraplegia-complicates care, medical course, recovery, and prognosis bacteriuria with pyuria-patient has a chronic suprapubic catheter, she is not complaining of any fevers or chills and she is afebrile here, I have elected not to treat her for a urinary tract infections at this time. Discharge home with home care.
[2023-12-21] MEDS: Cilostazol 50 MG Tablet PO (09:33)
[2023-12-21] MEDS: Baclofen 10 MG Tablet 30 MG PO ×2 (09:33→13:39)
[2023-12-21] MEDS: Tolterodine Tartrate 2 MG CAP.SA PO (09:33)
[2023-12-21] MEDS: Meloxicam 15 MG Tablet PO (09:33)
[2023-12-21] MEDS: Gabapentin 800 MG Tablet PO ×2 (09:33→13:39)
[2023-12-21] MEDS: DULoxetine Hcl 60 MG Capsule 120 MG PO (09:33)
[2023-12-21 09:41] VITALS: BP 85/52; PULSE 77; RESP 16; TEMP 36.7; O2SAT 99
--- NOTE | 2023-12-21 09:57 | DS.PCM_ITS ---
Providers Date of Admission: 12/20/23 Primary Care Physician: Dr. Qamar Zimmer MD Reason For Visit: HYPOKALEMIA, DEHYDRATION, DIARRHEA Diagnosis Discharge Diagnosis (1) Acute hypokalemia: Status: Acute Code(s): E87.6 - Hypokalemia Plan Hypokalemia * resolved * secondary to fluid loss (vomiting, diarrhea)-patient will be placed in observation status on MedSurg diarrhea * Doubtful this is C. difficile as it began suddenly and was associated with dry heaves and resolved spontaneously. Will discontinue the vancomycin. paraplegia-complicates care, medical course, recovery, and prognosis bacteriuria with pyuria-patient has a chronic suprapubic catheter, she is not complaining of any fevers or chills and she is afebrile here, I have elected not to treat her for a urinary tract infections at this time. Discharge home with home care. Medications at Discharge Home Medications baclofen 20 mg tablet 30 mg PO 4X/DAY muscle spasm 10/19/19 duloxetine 60 mg capsule,delayed release 60 mg PO DAILY depression 10/19/19 oxybutynin chloride 10 mg tablet,extended release 24 hr 10 mg PO DAILY bladder 12/24/19 gabapentin 100 mg capsule 800 mg PO 4X/DAY paraplegia/nerve pain 05/02/20 clonazepam 0.5 mg tablet 0.5 mg PO TID PRN Anxiety #9 tabs 07/05/20 cilostazol 50 mg tablet 50 mg PO BID antiplatelet 08/15/22 meloxicam 15 mg tablet 15 mg PO DAILY spasms 08/15/22 ergocalciferol (vitamin D2) 1,250 mcg (50,000 unit) capsule 1,250 mcg PO DAILY 12/20/23 Hospital Course Operations None Procedures None Summary of Care Provided Minutes Spent on Discharge: 32 Hospital Course: Patient presents with 2-day history of vomiting and dry heaves. Patient presented with hypokalemia of 2.9. Hypokalemia was corrected with potassium replacement and is 4.1. Patient was brought in because of concern for her having CHF. Patient had a really severe case of C. difficile about a year and a half ago. Denies any recent antibiotic exposure. The symptoms began suddenly and resolve spontaneously patient is feeling better. Even though she has had a history of severe C. difficile in the past I do not feel this due to C. difficile but more likely due to a viral gastroenteritis. Patient looks well a nd feels well. Patient feels comfortable returning home with home care. 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 Patient had an equivocal urinalysis but not indicative of infection. Patient likely has chronic colonization due to Charles catheter. No treatment for urinary tract infection is warranted at this time. Patient also had an ovarian cyst noted on CAT scan as well as on ultrasound. No additional workup is needed at this time. Not concerning for malignancy. Weight / BMI Weight Weight: 64.155 kg Body Mass Index (BMI) 18.6 ABG / Lab / Microbiology Data 12/21/23 05:25 12/21/23 05:25 Laboratory: Laboratory Results - last 24 hr 12/20/23 11:20: WBC 12.1 H, RBC 5.21, Hgb 12.5, Hct 41.1, MCV 78.9 L, MCH 24.0 L , MCHC 30.4 L, RDW Std Deviation 47.0 H, RDW Coeff of Domonique 16.5 H, Plt Count 263, MPV 10.9, Immature Gran % (Auto) 0.400, Neut % (Auto) 73.8 H, Lymph % (Auto) 20.7, [place] % (Auto) 4.5, Eos % (Auto) 0.2, Baso % (Auto) 0.4, Absolute Neuts (auto) 9.0 H, Absolute Lymphs (auto) 2.51, Nucleated RBC % 0, Sodium 140, Potassium 2.9 L, Chloride 108 H, Carbon Dioxide 28.0, Anion Gap 4 L, BUN 12, Creatinine 0.54 L, Estim Creat Clear Calc 143.76, Est GFR (MDRD) Af Amer 160, Est GFR (MDRD) Non-Af 133, BUN/Creatinine Ratio 22.4 H, Glucose 85, Calcium 8.8, Total Bilirubin 0.50, AST 20, ALT 39, Alkaline Phosphatase 113, Total Protein 7.1, Albumin 3.4, Globulin 3.7, Albumin/Globulin Ratio 0.9, Lipase 14 12/20/23 11:40: Lactic Acid 1.1 12/20/23 11:43: Urine Color Yellow, Urine Clarity Cloudy, Urine pH 6.5, Ur Specific [place] 1.020, Urine Protein 100 H, Urine Glucose (UA) Normal, Urine Ketones 150 A*, Urine Occult Blood 25 H, Urine Nitrite Positive H, Urine Bilirubin 1 H, Urine Urobilinogen 1 H, Ur Leukocyte Esterase 500 H, Urine RBC 0 SEEN, Urine WBC 0-5 SEEN, Ur Squamous Epith Cells 0 SEEN, Amorphous Sediment 1+, Urine Bacteria 1+, Urine Mucus 0 SEEN 12/21/23 05:25: WBC 6.4, RBC 4.49, Hgb 10.8 L, Hct 35.3 L, MCV 78.6 L, MCH 24.1 L, MCHC 30.6 L, RDW Std Deviation 47.6 H, RDW Coeff of Domonique 16.7 H, Plt Count 197, MPV 11.0, Immature Gran % (Auto) 0.500, Neut % (Auto) 53.6, Lymph % (Auto) 36.9, [place] % (Auto) 7.2, Eos % (Auto) 1.2, Baso % (Auto) 0.6, Absolute Neuts (auto) 3.5, Absolute Lymphs (auto) 2.37, Nucleated RBC % 0, Sodium 142, Potassium 4.1, Chloride 116 H, Carbon Dioxide 24.0, Anion Gap 2 L, BUN 12, Creatinine 0.34 L, Estim Creat Clear Calc 218.31, Est GFR (MDRD) Af Amer 272, Est GFR (MDRD) Non-Af 225, BUN/Creatinine Ratio 35.4 H, Glucose 79, Calcium 8.0 L Microbiology: Microbiology 12/20/23 11:43 Mucosa - Nose SARS-CoV-2, Influenza & RSV (PCR) - Final Radiography Diagnostic Testing: Radiology Impression Abdomen/Pelvis CT 12/20/23 11:37 IMPRESSION: Left ovarian cyst. Prominence of the left ovary. Correlation with ultrasound is recommended. Small follicle in the right ovary. Electronically Signed: Ashish Villatoro MD at 12:52 EST , Pelvis Ultrasound 12/20/23 13:26 IMPRESSION: Enlargement of the left ovary. There is a 3.2 cm x 3.3 cm x 3.3 cm septated cyst in the left ovary. Electronically Signed: Ashish Villatoro MD at 14:32 EST , D/C Instructions Discharge Diet: No restrictions Meaningful Use Info Meaningful Use Diagnoses (Choose all that apply): None applicable Discharge Plan Admission Admit Date/Time: 12/20/23 15:48 Primary Reason for Your Visit: Diarrhea. Hypokalemia Attending Provider: Gray Lees Primary Care Provider: Qamar Zimmer Consulting Providers: Jaleel Dejesus Additional Instructions / Restrictions: You had diarrhea. Think this is more likely due to a viral gastroenteritis, which is a syndrome that can cause vomiting or diarrhea. Usually viral gastroenteritis begins quickly and resolves quickly unlike C. difficile where it is constant until its treated. He had a CAT scan that showed an ovarian cyst and ultrasound showed an ovarian cyst. Ovarian cyst is a benign finding and does not warrant further workup. Discharge Orders/Prescriptions Prescriptions: Continued baclofen 20 MG tablet 30 mg PO 4X/DAY Patient Comments: Take 1 tablet by mouth 4 (four) times a day. duloxetine 60 MG capsule,delayed release(DR/EC) 60 mg PO DAILY Patient Comments: Take 2 capsules by mouth daily. oxybutynin chloride 10 MG tablet extended release 24hr 10 mg PO DAILY Patient Comments: unsure of dosage. gabapentin 100 MG capsule 800 mg PO 4X/DAY clonazepam 0.5 MG tablet 0.5 mg PO TID PRN (Reason: Anxiety) Qty: 9 0RF cilostazol 50 mg tablet 50 mg PO BID Patient Comments: unsure of dosage. meloxicam 15 mg tablet 15 mg PO DAILY Patient Comments: Unsure of dosage. ergocalciferol (vitamin D2) 1,250 mcg (50,000 unit) capsule 1,250 mcg PO DAILY Patient Comments: Take 1 capsule by mouth two times a week. (FOR EXAMPLE ONE CAPSULE ON SUNDAY AND ONE ON SUNDAY) FOR A TOTAL OF 8 WEEKS, WITH A MEAL Referrals / Follow Up: Qamar Zimmer MD [Primary Care Provider] - Within 2 Weeks Disposition Disposition (needs filled in before D/C Order can be placed): Home Health Service Charges/Coding Visit Charges Inpatient E&M: 40339 Disch Hosp >30min
[2023-12-21 13:41] VITALS: BP 105/77; PULSE 83; RESP 16; TEMP 36.8; O2SAT 98
--- NOTE | 2023-12-21 13:55 | CASEMGMT ---
Social Work SW met with pt and introduced self and role of SW. Pt expressing frustration with need for hospitalization and wanting to be discharged as soon as possible. Pt confirms she has services through [facility] and has an aid. Pt requesting wheelchair van transportation home. SW arranged for transportation through [facility] for potato picker between 2:30 and 3:30 via wheelchair van. Pt notified and agreeable to this. Phone call to [facility] and spoke to coverage team. Pt has services through the [place] [facility]. Anastasiya Reynoso is pt's field nurse case manager and pt receives 7 home delivered meals a week and has a home health aid through [place] Mon through Fri from 9-5. Coverage team updated on pt's admission and discharge. BERNARD Salazar
== END 2023-12-21 16:03 | disposition home health service (06) ==
LOC: ED 15:00 → MS3 16:42
PROVIDERS: Physician Assistant; Admitting Provider Internal Medicine; Emergency Provider Emergency Medicine; PCP Family Medicine
DX: E87.6 Hypokalemia (principal); G82.20 Paraplegia, unspecified; E86.0 Dehydration; R11.2 Nausea with vomiting, unspecified; Z79.02 Long term (current) use of antithrombotics/antiplatelets; R19.7 Diarrhea, unspecified; N83.202 Unspecified ovarian cyst, left side; F17.210 Nicotine dependence, cigarettes, uncomplicated; R74.8 Abnormal levels of other serum enzymes; Z86.718 Personal history of other venous thrombosis and embolism; N31.9 Neuromuscular dysfunction of bladder, unspecified; Z79.899 Other long term (current) drug therapy; R82.71 Bacteriuria
CPT/HCPCS: 36415; 74177; 76856; 80048; 80053; 81001; 83605; 83690; 85025; 87077; 87086; 87088; 87186; 87631; 96361; 96372; 96374; 96375; 99221; 99285; 99406; J7030; Q9967; A4216; G0378; J2405

== ENCOUNTER 2024-03-27 17:03 | Emergency (ER) | payer MEDICAID, SELFPAY ==
[2024-03-27 17:21] VITALS: BP 95/63; PULSE 102; RESP 14; TEMP 36.8; O2SAT 94; BMI 21.0
--- NOTE | 2024-03-27 18:30 | RAD_ITS ---
INDICATION: chest pain EXAMINATION/TECHNIQUE: X-RAY - XR Chest 1 View COMPARISON: June 22, 2023 FINDINGS: LINES/DEVICES: None. LUNGS: No consolidation, edema or effusion. No pneumothorax. MEDIASTINUM AND CARDIOVASCULAR STRUCTURES: Cardiac silhouette not enlarged. Central airways and mediastinal contour are unremarkable. BONES AND SOFT TISSUES: Old fractures of the seventh ribs bilaterally.. RAD/Chest 1 View (Portable) IMPRESSION: No radiographic evidence of acute cardiopulmonary disease. Electronically Signed: Shade Caldwell DO at 18:54 EDT ,
[2024-03-27 18:35] LABS: Absolute Neutrophil Count 9.3 X10^3/uL (2.0-7.7); Basophil# 0.07 X10^3/uL; Basophil% 0.5 % (0-1); Eosinophils% 0.7 % (0-5); Hematocrit 35.4 % (37-47); Hemoglobin 10.9 g/dL (12.0-15.0); Lymphocyte % 23.7 % (19-41); Mean Corp Hgb Conc 30.8 g/dL (32-36); Mean Corpuscular Hgb 23.5 pg (27.0-32.0); Mean Corpuscular Volume 76.3 fL (81-99); Mean Platelet Vol. 10.4 fl (6.2-12.0); Monocyte# 0.81 X10^3/uL; NRBC Flagged by Analyzer 0 % (0-5); Neutrophil # 9.27 X10^3/uL (2.7-7.7); Neutrophil % 68.7 % (47-70); Platelet Count 208 K/mm3 (150-450); RBC Distribution Width CV 14.9 % (11.6-14.6); Red Blood Count 4.64 M/mm3 (4.2-5.4); White Blood Count 13.5 K/mm3 (4.4-11.0)
--- NOTE | 2024-03-27 18:38 | EDS_ITS ---
HPI History of Present Illness Chief Complaint: Dizziness Narrative Narrative: Patient presenting for evaluation of what she states is lightheadedness. Patient is paraplegic and she does not walk when she gets the symptoms just sitting. She states that sometimes she gets some chest tightness which only last for about a minute or so. She denies cardiac history. She denies sharp pleuritic pain. She does have history of DVT in the past. He states the only blood thinner that she is on is cilostazol. Patient does not feel short of breath. Patient states that she is concerned she might be dehydrated. She is stating she is eating and drinking normally. She states he has a history of idiopathic hypotension and was previously on midodrine. She states that her blood pressure today is where she is normally at. She has not had a fever or chills. She has a suprapubic catheter and she does not feel sensation at that level does not describe any pain. She states her primary care physician started her on Bactrim and sent a urine culture out of concern she might have a UTI. [facility] Medical History Anxiety and depression Chronic hypotension Chronic indwelling Charles catheter DVT (deep venous thrombosis) Esophageal reflux Hepatitis C History of intravenous drug abuse Kidney stones Neurogenic bladder Paraplegia Spinal abscess Home Medications ?Medication ?Instructions ?Recorded ?Last Taken ?Type baclofen 20 mg tablet 30 mg PO 4X/DAY muscle spasm 10/19/19 05/20/23 History duloxetine 60 mg capsule,delayed 60 mg PO DAILY depression 10/19/19 05/20/23 History release oxybutynin chloride 10 mg 10 mg PO DAILY bladder 12/24/19 05/20/23 History tablet,extended release 24 hr gabapentin 100 mg capsule 800 mg PO 4X/DAY paraplegia/nerve 05/02/20 05/20/23 History pain clonazepam 0.5 mg tablet 0.5 mg PO TID PRN Anxiety #9 tabs 07/05/20 05/20/23 Rx cilostazol 50 mg tablet 50 mg PO BID antiplatelet 08/15/22 05/20/23 History meloxicam 15 mg tablet 15 mg PO DAILY spasms 08/15/22 05/20/23 History ascorbic acid (vitamin C) 500 mg 500 mg PO DAILY 03/27/24 Unknown History tablet ferrous sulfate 325 mg (65 mg 325 mg PO DAILY 03/27/24 Unknown History iron) tablet (FeroSul) magnesium 250 mg tablet 250 mg PO DAILY 03/27/24 Unknown History omeprazole 20 mg capsule,delayed 20 mg PO DAILY 03/27/24 Unknown History release sulfamethoxazole 800 1 tab PO BID 03/27/24 Unknown History mg-trimethoprim 160 mg tablet Allergy/AdvReac Type Severity Reaction Status Date / Time Penicillins AdvReac PT UNSURE Verified 06/22/23 13:23 OF REACTION Family History Mother Multiple sclerosis Surgical History History of suprapubic catheter History of surgery on lower extremity Hx of spinal surgery S/P debridement Social History household members: none Smoking Status: Current every day smoker tobacco type: cigarettes alcohol intake: current Alcohol type: other substance use type: former substance user Date of last use: Prior history of IV drug abuse with heroin and methamphetamine. ROS ROS ED Constitutional Constitutional ED: Denies chills, fever(s) or sweats Eyes Eyes: Denies blurry vision or change in vision ENT ENT ED: Denies ear pain or sore throat Cardiovascular Cardiovascular: Reports chest pain, palpitations, racing heartbeat and other Details: Lightheadedness Respiratory/Chest Respiratory/Chest: Denies cough, dyspnea or sputum Gastrointestinal Gastrointestinal: Denies abdominal pain, constipation, diarrhea, nausea or vomiting Genitourinary Genitourinary ED: Denies dysuria, hematuria or urinary frequency Musculoskeletal Musculoskeletal: Denies arthralgias, myalgias or neck pain Integumentary Denies abscess, Abrasions or rash Neurologic Neurologic: Denies headache(s), paresthesias or weakness Psychiatric Psychiatric: Denies anxiety, depression, suicidal ideation or suicidal thoughts Endocrine Endocrinology: Denies polydipsia or polyuria EXAM Physical Exam Const Vital Signs: 03/27/24 17:03 03/27/24 17:21 03/27/24 17:46 Temperature 98.2 F Temperature Source Oral Pulse Rate 102 H Respiratory Rate 14 Respiratory Effort Normal Non-Labored Respiratory Pattern Normal Blood Pressure 95/63 Blood Pressure Mean 73 Pulse Ox 94 Oxygen Delivery Method Room Air Room Air 06/06/24 19:03 Temperature Temperature Source Pulse Rate 75 Respiratory Rate 14 Respiratory Effort Respiratory Pattern Blood Pressure 95/68 Blood Pressure Mean 77 Pulse Ox 98 Oxygen Delivery Method Room Air Positive well nourished General Appearance ED: ESTEFANÍA ORDAZ Reports moist mucous membranes Eyes PERRL and EOMs intact bilaterally Chest Wall inspection of chest normal Resp normal respiratory effort and clear to auscultation bilaterally Auscultation: Negative for rales or rhonchi Cardio Negative for regular rate or regular rhythm GI GI Narrative: Suprapubic catheter noted Extremity normal to inspection Neuro oriented x3 and CN's II-XII intact bilaterally Sensorium / Orientation: alert Psych mental status grossly normal MDM MDM MDM Narrative Medical decision making narrative: Patient presenting with chest discomfort which she started just tightness. She also feels lightheaded. She feels like she is having palpitations. Differential includes but is not limited to ACS, PE, pneumonia, pneumothorax, muscle strain, costochondritis, anxiety, dysrhythmia, dehydration, anemia, electrolyte abnormalities. CBC will be obtained to assess white blood cell count, hemoglobin, platelets. BMP to assess renal function, electrolytes, glucose. High-sensitivity troponin and EKG to assess for ischemia/dysrhythmia. Chest x-ray to rule out pneumonia. Patient already reported that she had a urine culture sent. CBC shows mild leukocytosis 13.5. Hemoglobin 10.9 and this is near baseline. Renal function and electrolytes are normal. High-sensitivity troponin is 3. EKG sinus rhythm at 84 bpm without sign of ischemic change or dysrhythmia, interpretation. Chest x-ray negative for acute findings. D-dimer came back elevated at 1.57 and we did obtain a CTA of the chest which was negative for PE or dissection or other acute abnormalities. Patient feeling improved after IV fluids. I think she is stable for discharge home. She states she was given a prescription for Bactrim to cover for her urine. Urine culture was sent and she is going to take this when she gets home. Impression: 1. Lightheadedness 2. Chest pain Lab Data Labs: Laboratory Results - last 24 hr 03/27/24 18:23 WBC 13.5 H RBC 4.64 Hgb 10.9 L Hct 35.4 L MCV 76.3 L MCH 23.5 L MCHC 30.8 L RDW Std Deviation 41.0 RDW Coeff of Domonique 14.9 H Plt Count 208 MPV 10.4 Immature Gran % (Auto) 0.400 Neut % (Auto) 68.7 Lymph % (Auto) 23.7 [place] % (Auto) 6.0 Eos % (Auto) 0.7 Baso % (Auto) 0.5 Absolute Neuts (auto) 9.3 H Absolute Lymphs (auto) 3.20 Nucleated RBC % 0 D-Dimer Quant (PE/DVT) 1.57 H* Sodium 137 Potassium 3.7 Chloride 105 Carbon Dioxide 28.0 Anion Gap 4 L BUN 13 Creatinine 0.45 L Estim Creat Clear Calc 186.40 Est GFR (MDRD) Af Amer 196 Est GFR (MDRD) Non-Af 162 BUN/Creatinine Ratio 28.9 H Glucose 96 Calcium 8.8 Troponin I High Sens < 3 L Radiography Diagnostic Testing: Clinical Impression(s) from Imaging Studies Chest X-Ray 03/27/24 18:30 IMPRESSION: No radiographic evidence of acute cardiopulmonary disease. Electronically Signed: Shade Caldwell DO at 18:54 EDT , Chest CTA 03/27/24 19:50 IMPRESSION: No demonstrated pulmonary embolism or arterial dissection. Electronically Signed: Shade Caldwell DO at 20:20 EDT , Discharge Plan Triage Chief Complaint: Dizziness Other Complaint: Abn Labs ED Provider: Porter Corley Dx/Rx/DC Orders Instructions: ED Dizziness, Uncertain Cause Prescriptions: No Action baclofen 20 MG tablet 30 mg PO 4X/DAY Patient Comments: Take 1 tablet by mouth 4 (four) times a day. duloxetine 60 MG capsule,delayed release(DR/EC) 60 mg PO DAILY Patient Comments: Take 2 capsules by mouth daily. oxybutynin chloride 10 MG tablet extended release 24hr 10 mg PO DAILY Patient Comments: unsure of dosage. gabapentin 100 MG capsule 800 mg PO 4X/DAY clonazepam 0.5 MG tablet 0.5 mg PO TID PRN (Reason: Anxiety) Qty: 9 0RF cilostazol 50 mg tablet 50 mg PO BID Patient Comments: unsure of dosage. meloxicam 15 mg tablet 15 mg PO DAILY Patient Comments: Unsure of dosage. ferrous sulfate [FeroSul] 325 mg (65 mg iron) tablet 325 mg PO DAILY ascorbic acid (vitamin C) 500 mg tablet 500 mg PO DAILY sulfamethoxazole-trimethoprim 800-160 mg tablet 1 tab PO BID omeprazole 20 mg capsule,delayed release(DR/EC) 20 mg PO DAILY magnesium 250 mg tablet 250 mg PO DAILY Primary Care Provider: Qamar Zimmer Referrals: Qamar Zimmer MD [Primary Care Provider] - Print Language: Setswana Disposition Disposition: Home, Self Care
[2024-03-27 18:59] LABS: Anion Gap 4 (5-15); BUN 13 mg/dL (7-18); BUN/Creat Ratio 28.9 RATIO (10-20); Calcium,Total 8.8 mg/dL (8.5-10.1); Chloride 105 mmol/L (98-107); Creatinine, Serum 0.45 mg/dL (0.55-1.02); EST Glomerular Filtration Rate 162 mL/min (>60); Est Glom Filt Rate - Afr Amer 196 mL/min (>60); Glucose 96 mg/dL (74-106); Potassium 3.7 mmol/L (3.5-5.1); Sodium Level 137 mmol/L (136-145); Troponin-I HS < 3 pg/mL (3.0-54.0)
[2024-03-27 19:03] VITALS: BP 95/68; PULSE 75; RESP 14; O2SAT 98
[2024-03-27] MEDS: 0.9% Normal Saline (1000mL) 1,000 ML 999 ML IV (19:11)
[2024-03-27 19:14] LABS: D-Dimer Quantitative (DVT/PE) 1.57 FEU/ug/m (0.27-0.49)
--- NOTE | 2024-03-27 19:50 | CT_ITS ---
STUDY: CTA CHEST REASON FOR EXAM: Female, 43 years old. chest pain RADIATION DOSAGE (If Supplied By Facility): CTDIvol = ( 6.08 ) mGy, DLP = ( 173.44 ) mGycm TECHNIQUE: The examination was performed with the intravenous administration of IV 100mL Isovue-370. Post-processing of the angiographic images was performed, with multiplanar reformation and 3D reconstruction. The protocol utilizes one or more of the following dose reduction techniques: automated exposure control, adjustment of mA and/or kV according to patient size,and/or use of iterative reconstruction technique. COMPARISON: FINDINGS: Normal enhancement of the main pulmonary artery and right and left pulmonary arteries. Normal enhancement of the bilateral peripheral pulmonary arteries. There is no demonstrated pulmonary embolism. Normal thoracic aorta and visualized great vessels. There is no demonstrated aortic dissection. Normal heart and pericardium. Normal mediastinum. Normal hilar regions. Normal visualized trachea and bronchi. The lungs are well expanded. Normal pulmonary parenchyma. Normal pleura. Normal chest wall structures. Bilateral old rib fractures. Normal visualized upper abdomen. CT/CTA Chest W/WO Contrast IMPRESSION: No demonstrated pulmonary embolism or arterial dissection. Electronically Signed: Shade Caldwell DO at 20:20 EDT Reading Location ID and State: [facility] / [place] Tel [phone], Service support ,
[2024-03-27] MEDS: Baclofen 10 MG Tablet 30 MG PO (20:01)
[2024-03-27 21:00] VITALS: BP 104/67; PULSE 77; RESP 16; O2SAT 98
[2024-03-27 21:09] VITALS: BP 104/67; PULSE 77; RESP 16; TEMP 36.2; O2SAT 99
== END 2024-03-27 21:31 | disposition home or self-care (01) ==
PROVIDERS: Emergency Provider Student in an Organized Health Care Education/Training Program; PCP Family Medicine; Visit Provider Student in an Organized Health Care Education/Training Program
DX: R42 Dizziness and giddiness (principal); G82.20 Paraplegia, unspecified; R07.9 Chest pain, unspecified; F41.8 Other specified anxiety disorders; Z79.899 Other long term (current) drug therapy; Z79.02 Long term (current) use of antithrombotics/antiplatelets; K21.9 Gastro-esophageal reflux disease without esophagitis; B19.20 Unspecified viral hepatitis C without hepatic coma; Z86.718 Personal history of other venous thrombosis and embolism; F17.210 Nicotine dependence, cigarettes, uncomplicated
CPT/HCPCS: 71045; 71275; 80048; 84484; 85025; 85379; 93005; 96360; 96361; 99285; Q9967; A4216

== ENCOUNTER 2024-03-31 17:19 | Observation (INO) | payer MEDICAID, SELFPAY ==
[2024-03-31 17:20] VITALS: BP 88/58; PULSE 101; RESP 16; TEMP 36.2; O2SAT 97; BMI 19.8
--- NOTE | 2024-03-31 17:33 | EKG12_ITS ---
Test Reason : DYSRHYTHMIA Blood Pressure : / mmHG Vent. Rate : 076 BPM Atrial Rate : 076 BPM P-R Int : 140 ms QRS Dur : 108 ms QT Int : 410 ms P-R-T Axes : 034 094 065 degrees QTc Int : 461 ms Normal sinus rhythm Rightward axis Incomplete right bundle branch block Borderline ECG Confirmed by ANUJ RAMOS, AMAYA ([id number]), society editor CORRINE DUNCAN ([id number]) on 04/01/2024 8:20:33 AM Referred By: Confirmed By:AMAYA LESLIE MD
--- NOTE | 2024-03-31 17:34 | ED.RN ---
pt with paraplegia with suprapubic cath in place. patient states her doctor collected a urine sample on and called her this morning saying the urine culture grew E. Coli that is resistant to most antibiotics patient does admit to some n/v but denies any fever. catheter tubing filled with sediment with foul smelling urine. pt states she changed the catheter two days ago and it is already filled up with stuff hx of frequent UTIs.
[2024-03-31 17:55] VITALS: O2SAT 98
[2024-03-31 18:01] LABS: Absolute Lymphocyte Count 3.33 X10^3/uL (0.83-4.51); Absolute Neutrophil Count 7.6 X10^3/uL (2.0-7.7); Basophil# 0.07 X10^3/uL; Basophil% 0.6 % (0-1); Eosinophil# 0.13 X10^3/uL; Eosinophils% 1.1 % (0-5); Hematocrit 39.7 % (37-47); Lymphocyte # 3.33 X10^3/ul (0.83-4.51); Lymphocyte % 28.2 % (19-41); Mean Corp Hgb Conc 30.2 g/dL (32-36); Mean Corpuscular Hgb 23.6 pg (27.0-32.0); Mean Corpuscular Volume 78.1 fL (81-99); Mean Platelet Vol. 10.8 fl (6.2-12.0); Monocyte# 0.63 X10^3/uL; Monocyte% 5.3 % (0-10); NRBC Flagged by Analyzer 0 % (0-5); Neutrophil % 64.5 % (47-70); Platelet Count 256 K/mm3 (150-450); RBC Distribution Width CV 15.3 % (11.6-14.6); Red Blood Count 5.08 M/mm3 (4.2-5.4); White Blood Count 11.8 K/mm3 (4.4-11.0)
[2024-03-31] MEDS: 0.9% Normal Saline (1000mL) 1,000 ML 999 ML IV (18:08)
[2024-03-31 18:10] LABS: International Normalized Ratio 1.1; Partial Thromboplast Time 25.9 Seconds (24.1-36.2); Prothrombin Time (Protime)PT. 13.9 SECONDS (11.7-14.9)
[2024-03-31 18:17] LABS: ALB/GLOB Ratio 0.9 RATIO (0.9-2.4); AST(SGOT) 34 U/L (15-37); Alanine Aminotransfer ALT/SGPT 28 U/L (13-56); Albumin, Serum 3.7 g/dL (3.2-5.0); Alkaline Phosphatase 107 U/L (45-117); Anion Gap 7 (5-15); BUN 12 mg/dL (7-18); BUN/Creat Ratio 21.4 RATIO (10-20); Calcium,Total 8.7 mg/dL (8.5-10.1); Chloride 103 mmol/L (98-107); Creatinine, Serum 0.56 mg/dL (0.55-1.02); EST Glomerular Filtration Rate 125 mL/min (>60); Est Glom Filt Rate - Afr Amer 152 mL/min (>60); Estimated Creatinine Clearance 140.57 ml/min; Globulin 3.9 g/dL (2.2-4.2); Glucose 69 mg/dL (74-106); Potassium 3.6 mmol/L (3.5-5.1); Protein, Total 7.6 g/dL (6.4-8.2); Sodium Level 135 mmol/L (136-145)
[2024-03-31 18:30] VITALS: BP 102/48
[2024-03-31 18:31] LABS: Lactic Acid 2.5 mmol/L (0.4-1.9)
[2024-03-31 18:50] LABS: Mucous, Urine 0 SEEN /hpf (<or=2+); Red Blood Cells-Urine 0 SEEN /hpf (0-5)
[2024-03-31 18:51] LABS: Color, Urine Yellow (Yellow); Glucose, Dipstick Normal (Normal); Ketone-Dipstick Negative (Negative); Leukocyte Esterase-Dipstick 25 /ul (Negative); Nitrite-Dipstick Positive (Negative); Occult Blood-Urine 10 /ul (Negative); Protein-Dipstick Negative (Negative); Urine Bilirubin Dipstick Negative (Negative); Urine Clarity Clear (Clear); Urine Urobilinogen Normal (Normal)
[2024-03-31] MEDS: 0.9% Normal Saline (500mL Bag) 500 ML 999 ML IV (18:54)
[2024-03-31] MEDS: Ertapenem Sod 1 GM in 0.9% Normal Saline (50mL MB+) 50 ML IV (18:54)
[2024-03-31 18:56] LABS: Bacteria 2+ /hpf (None Seen); Squamous Epithelial Cells - UA 0-5 SEEN /hpf (5-10); White Blood Cells 0-5 SEEN /hpf (0-5)
--- NOTE | 2024-03-31 18:58 | EX.ED.DYSGE1 ---
HPI History of Present Illness Chief Complaint: Complaint Narrative Narrative: Sent to ED by PCP for positive urine culture from suprapubic catheter from specimen 5 days ago. She is a paraplegic had a previous cervical spine abscess 2018. She states initial quadriplegic however symptoms improved and of having no sensation from the upper abdominal down. Suprapubic cath since then. She denies fevers or chills. She states that urine was sent with concerning infection and she was put on Bactrim. She received a call back today was told go to the hospital due to resistance of oral antibiotics. She did report nausea vomiting intermittently. Does not get these with her infections. Currently denies any nausea. Patient's culture was sent in noting Enterobacter cloacae complex. There is resistant to Bactrim Cipro and ampicillin. Also intermittent to nitrofurantoin. Susceptibility to ertapenem meropenem Zosyn gentamicin and tobramycin. Also records note she was in the ED 4 days ago for dizziness chest pains negative PE workup. [facility] Medical History Ovarian cyst Hepatitis C Kidney stones Chronic indwelling Charles catheter DVT (deep venous thrombosis) Paraplegia Spinal abscess Neurogenic bladder Anxiety and depression Chronic hypotension History of intravenous drug abuse Esophageal reflux Home Medications ?Medication ?Instructions ?Recorded ?Last Taken ?Type baclofen 20 mg tablet 30 mg PO 4X/DAY muscle spasm 10/19/19 03/31/24 History duloxetine 60 mg capsule,delayed 120 mg PO DAILY depression 10/19/19 03/31/24 History release oxybutynin chloride 10 mg 10 mg PO DAILY bladder 12/24/19 03/31/24 History tablet,extended release 24 hr clonazepam 0.5 mg tablet 0.5 mg PO TID PRN Anxiety #9 tabs 07/05/20 05/20/23 Rx cilostazol 50 mg tablet 50 mg PO BID antiplatelet 08/15/22 03/31/24 History meloxicam 15 mg tablet 15 mg PO DAILY spasms 08/15/22 05/20/23 History ascorbic acid (vitamin C) 500 mg 500 mg PO QODAY 03/27/24 03/30/24 History tablet ferrous sulfate 325 mg (65 mg 325 mg PO QODAY 03/27/24 03/30/24 History iron) tablet (FeroSul) magnesium 250 mg tablet 250 mg PO DAILY 03/27/24 03/31/24 History omeprazole 20 mg capsule,delayed 20 mg PO DAILY 03/27/24 03/31/24 History release sulfamethoxazole 800 1 tab PO BID 03/27/24 03/31/24 History mg-trimethoprim 160 mg tablet gabapentin 800 mg tablet 800 mg PO 4X/DAY 03/31/24 03/31/24 History glecaprevir 100 mg-pibrentasvir 40 2 tab PO DAILY 03/31/24 03/31/24 History mg tablet (Mavyret) nystatin 100,000 unit/gram topical 1 applic topical PRN PRN skin 03/31/24 Unknown History cream irritation nystatin 100,000 unit/gram topical 1 applic topical TID 03/31/24 Unknown History powder (Nyamyc) sodium chloride 0.9 % irrigation 1 irrig irrigation UD 03/31/24 03/31/24 History solution terbinafine HCl 1 % topical cream 1 applic topical BID 03/31/24 03/31/24 History varenicline 0.5 mg (11)-1 mg (42) 0.5 tab PO DAILY 03/31/24 Unknown History tablets in a dose pack varenicline 1 mg tablet 1 mg PO BID 03/31/24 Unknown History Allergy/AdvReac Type Severity Reaction Status Date / Time Penicillins AdvReac PT UNSURE Verified 03/31/24 17:23 OF REACTION Family History Mother Multiple sclerosis Surgical History History of surgery on lower extremity S/P debridement History of suprapubic catheter Hx of spinal surgery Social History household members: none Smoking Status: Current every day smoker tobacco type: cigarettes alcohol intake: current Alcohol type: other substance use type: former substance user Date of last use: Prior history of IV drug abuse with heroin and methamphetamine. ROS ROS ED Constitutional Constitutional ED: Denies chills, fever(s) or sweats Eyes Eyes: Denies change in vision ENT ENT ED: Denies dysphagia or sore throat Cardiovascular Cardiovascular: Denies chest pain, leg edema, palpitations or racing heartbeat Respiratory/Chest Respiratory/Chest: Denies cough, dyspnea or dyspnea on exertion Gastrointestinal Gastrointestinal: Reports nausea and vomiting; Denies abdominal pain or diarrhea Genitourinary Genitourinary ED: Denies dysuria, hematuria or urinary frequency Musculoskeletal Musculoskeletal: Denies back pain, extremity pain or neck pain Integumentary Denies rash or wounds Neurologic Neurologic: Denies headache(s), paresthesias or weakness EXAM Physical Exam Const Vital Signs: 03/31/24 17:20 03/31/24 17:55 03/31/24 18:30 Temperature 97.2 F L Temperature Source Temporal Pulse Rate 101 H Respiratory Rate 16 Blood Pressure 88/58 L 102/48 L Blood Pressure Mean 68 66 Pulse Ox 97 98 Oxygen Delivery Method Room Air Room Air Positive well nourished and well developed Constitutional Narrative: Nontoxic. General Appearance ED: well developed and NAD HEENT Reports moist mucous membranes normocephalic and atraumatic Eyes EOMs intact bilaterally and conjunctivae normal General Eye ED: Yes normal appearance of both eyes Neck no lymphadenopathy and supple General: Negative for tenderness Chest Wall Chest: Negative for tenderness Resp normal respiratory effort and normal air movement Effort and Inspection: symmetric chest movement; Negative for respiratory distress Cardio regular rate, regular rhythm and no murmurs Peripheral Pulses: pulses 2+ throughout GI normal to inspection, nondistended, normoactive bowel sounds and non-tender Palpation: Negative for guarding or rebound tenderness present Back/Spine no CVA tenderness and no thoracic nor lumbar tenderness Extremity Extremity Narrative: States no movement of the lower extremities. Neuro oriented x3 and no sensory deficits noted Sensorium / Orientation: awake and alert Skin no rashes or lesions noted and no wounds Sepsis Attestation Sepsis Alert: Yes Sepsis Attestation: Agree w/Sepsis Date exam was performed: 03/31/24 Time exam was performed: 17:30 Possible Source of Sepsis: Genitourinary Sepsis Organ Dysfunction Criteria Present: SBP < 90 mmHg or MAP < 65 mmHg and Lactic Acid > 2 mmol/L Fluid Resuscitation Fluid resuscitation indicated?: Yes Fluid Resuscitation ordered: Lesser volume fluid bolus ordered Amount of fluid ordered: 1,500 Reason for lesser fluid bolus:: Concern for fluid overload Sepsis Note Date exam was performed: 03/31/24 Time exam was performed: 19:02 Sepsis Attestation: Sepsis re-evaluation was performed Response to fluids: Fluid responsive hypotension MDM MDM MDM Narrative Medical decision making narrative: Interventions / MDM: Differential diagnosis: Sepsis, UTI, hypotension Diagnosis considered but do not suspect: N/A My EKG interpretation: Sinus rate of 76, no ST changes. Isolated T wave version aVL and V2. Imaging independently reviewed and interpreted by myself: N/A External documents reviewed: N/A Test considered but not ordered:N/A ED course: Patient initial pressure of 88 systolic in the room she was 100/73. She had heart rate 101 on arrival therefore sepsis labs were ordered. She is ordered for weight-based fluid bolus 30 cc/kg to avoid fluid overload. Clinically not septic. Clinically nontoxic. Review of her susceptibilities, she was ordered for ertapenem. Labs white count 11.8 hemoglobin 12. Creatinine 0.58. Lactic acid returned at 2.5 meeting severe sepsis criteria. Blood pressure remained stable. Discussed with hospitalist Dr. Denny, discussed patient's history. Discussed concerns for possible colonization with her suprapubic cath. Agrees with first dose of ertapenem at this time. She will be admitted to medical telemetry for further treatment. Urine did return nitrites leukocyte and 2+ bacteria. Cultures of urine and blood are pending. Re-evaluation: stable Disposition discussed with patient/family/significant other: Patient Case discussed with consulting clinician: Hospitalist This note was generated with [employer] ([employer] dictation software. It may contain incorrect words, spelling, and punctuation that were not noted in checking the note before signing. Lab Data Attestation: I reviewed the patient's lab results. Labs: Laboratory Results - last 24 hr 03/31/24 03/31/24 17:45 18:43 WBC 11.8 H RBC 5.08 Hgb 12.0 Hct 39.7 MCV 78.1 L MCH 23.6 L MCHC 30.2 L RDW Std Deviation 43.0 RDW Coeff of Domonique 15.3 H Plt Count 256 MPV 10.8 Immature Gran % (Auto) 0.300 Neut % (Auto) 64.5 Lymph % (Auto) 28.2 [place] % (Auto) 5.3 Eos % (Auto) 1.1 Baso % (Auto) 0.6 Absolute Neuts (auto) 7.6 Absolute Lymphs (auto) 3.33 Nucleated RBC % 0 PT 13.9 INR 1.1 APTT 25.9 Sodium 135 L Potassium 3.6 Chloride 103 Carbon Dioxide 25.0 Anion Gap 7 BUN 12 Creatinine 0.56 Estim Creat Clear Calc 140.57 Est GFR (MDRD) Af Amer 152 Est GFR (MDRD) Non-Af 125 BUN/Creatinine Ratio 21.4 H Glucose 69 L Lactic Acid 2.5 H* Calcium 8.7 Total Bilirubin 0.40 AST 34 ALT 28 Alkaline Phosphatase 107 Total Protein 7.6 Albumin 3.7 Globulin 3.9 Albumin/Globulin Ratio 0.9 Urine Color Yellow Urine Clarity Clear Urine pH 7.0 Ur Specific [place] 1.010 Urine Protein Negative Urine Glucose (UA) Normal Urine Ketones Negative Urine Occult Blood 10 H Urine Nitrite Positive H Urine Bilirubin Negative Urine Urobilinogen Normal Ur Leukocyte Esterase 25 H Urine RBC 0 SEEN Urine WBC 0-5 SEEN Ur Squamous Epith Cells 0-5 SEEN Urine Bacteria 2+ Urine Mucus 0 SEEN Critical Care Time Critical Care Time: Yes Critical care time (excluding procedures): 30-74 minutes, Discussing w/Patient &/or Family/Stone Cutter, Discussing w/Consultants, Arranging Admission or Transfer, Performing Direct Patient Care at Bedside and - (30 minutes) Discharge Plan Dx/Rx/DC Orders Clinical Impression: Severe sepsis, Paraplegia, UTI (urinary tract infection), Transient hypotension Disposition Disposition: Acute Care Hospital [facility] Discharge Date/Time: 03/31/24 19:54
[2024-03-31 19:52] VITALS: BP 91/56; PULSE 82; RESP 16; TEMP 36.8; O2SAT 97
[2024-03-31 19:53] VITALS: BP 91/56; PULSE 82; RESP 16; TEMP 37.1; O2SAT 97
[2024-03-31 20:10] VITALS: BMI 19.8
[2024-03-31 20:21] VITALS: BP 93/63; PULSE 92; RESP 18; TEMP 36.9; O2SAT 96
--- NOTE | 2024-03-31 20:56 | PCM.HP.STD ---
HPI - General General Date of Admission: 03/31/24 Date of Service: 03/31/24 Chief Complaint: Abnormal urine culture HPI Narrative ROGELIO MARRERO, is a 43 F with history of chronic hepatitis C infection, paraplegia and a suprapubic catheter and who presents to the hospital on account of abnormal urine culture which grew multidrug-resistant E. coli. Patient states that prior to onset of collection of urine sample and up until now she has been experiencing malaise, nausea and vomiting but without any chills or fever. Patient also reports that he has been increased sediments in her urinary catheter. Mild leukocytosis was noted on blood work along with mildly elevated lactic acid levels. [facility] Medical History Ovarian cyst Hepatitis C Kidney stones Chronic indwelling Charles catheter DVT (deep venous thrombosis) Paraplegia Spinal abscess Neurogenic bladder Anxiety and depression Chronic hypotension History of intravenous drug abuse Esophageal reflux Home Medications ?Medication ?Instructions ?Recorded ?Last Taken ?Type baclofen 20 mg tablet 30 mg PO 4X/DAY muscle spasm 10/19/19 03/31/24 History duloxetine 60 mg capsule,delayed 120 mg PO DAILY depression 10/19/19 03/31/24 History release oxybutynin chloride 10 mg 10 mg PO DAILY bladder 12/24/19 03/31/24 History tablet,extended release 24 hr clonazepam 0.5 mg tablet 0.5 mg PO TID PRN Anxiety #9 tabs 07/05/20 05/20/23 Rx cilostazol 50 mg tablet 50 mg PO BID antiplatelet 08/15/22 03/31/24 History meloxicam 15 mg tablet 15 mg PO DAILY spasms 08/15/22 05/20/23 History ascorbic acid (vitamin C) 500 mg 500 mg PO QODAY 03/27/24 03/30/24 History tablet ferrous sulfate 325 mg (65 mg 325 mg PO QODAY 03/27/24 03/30/24 History iron) tablet (FeroSul) magnesium 250 mg tablet 250 mg PO DAILY 03/27/24 03/31/24 History omeprazole 20 mg capsule,delayed 20 mg PO DAILY 03/27/24 03/31/24 History release sulfamethoxazole 800 1 tab PO BID 03/27/24 03/31/24 History mg-trimethoprim 160 mg tablet gabapentin 800 mg tablet 800 mg PO 4X/DAY 03/31/24 03/31/24 History glecaprevir 100 mg-pibrentasvir 40 2 tab PO DAILY 03/31/24 03/31/24 History mg tablet (Mavyret) nystatin 100,000 unit/gram topical 1 applic topical PRN PRN skin 03/31/24 Unknown History cream irritation nystatin 100,000 unit/gram topical 1 applic topical TID 03/31/24 Unknown History powder (Nyamyc) sodium chloride 0.9 % irrigation 1 irrig irrigation UD 03/31/24 03/31/24 History solution terbinafine HCl 1 % topical cream 1 applic topical BID 03/31/24 03/31/24 History varenicline 0.5 mg (11)-1 mg (42) 0.5 tab PO DAILY 03/31/24 Unknown History tablets in a dose pack varenicline 1 mg tablet 1 mg PO BID 03/31/24 Unknown History Allergy/AdvReac Type Severity Reaction Status Date / Time Penicillins AdvReac PT UNSURE Verified 03/31/24 17:23 OF REACTION Family History Mother Multiple sclerosis Surgical History History of surgery on lower extremity S/P debridement History of suprapubic catheter Hx of spinal surgery Social History household members: none Smoking Status: Current every day smoker tobacco type: cigarettes alcohol intake: current Alcohol type: other substance use type: former substance user Date of last use: Prior history of IV drug abuse with heroin and methamphetamine. ROS ROS Narrative Denies any chest pain or shortness of breath. All other systems reviewed and essentially negative or as above in the body of the history. Vital Signs Vital Signs Vital Signs: 03/31/24 17:20 03/31/24 17:55 03/31/24 18:30 Temperature 36.2 C L Temperature Source Temporal Pulse Rate 101 H Respiratory Rate 16 Blood Pressure 88/58 L 102/48 L Blood Pressure Mean 68 66 Pulse Ox 97 98 Oxygen Delivery Method Room Air Room Air 03/31/24 19:52 03/31/24 19:53 03/31/24 20:21 Temperature 36.8 C 37.1 C 36.9 C Temperature Source Oral Temporal Pulse Rate 82 82 92 Respiratory Rate 16 16 18 Blood Pressure 91/56 L 91/56 L 93/63 Blood Pressure Mean 67 67 73 Pulse Ox 97 97 96 Oxygen Delivery Method Room Air Room Air 03/31/24 20:21 Temperature 36.9 C Temperature Source Temporal Pulse Rate 92 Respiratory Rate 18 Blood Pressure 93/63 Blood Pressure Mean 73 Pulse Ox 96 Oxygen Delivery Method Room Air Weight Weight: 68.039 kg Body Mass Index (BMI) 19.8 Physical Exam Narrative General exam. Young woman, not ill looking, not in any obvious distress. HEENT. Oral mucosa moist no pallor or jaundice Neck. Neck is supple Heart. Presence of sounds are normal Lungs. Clear to auscultation Abdomen full and moves with respiration Extremities. 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 Conscious and alert and oriented x 3. Power in both lower extremities 0-1/5 Results Medical Records Data Attestation: I reviewed the patient's medical records Lab / Micro Data Attestation: I reviewed the patient's lab results. 03/31/24 17:45 03/31/24 17:45 Labs: Laboratory Results - last 24 hr 03/31/24 17:45: WBC 11.8 H, RBC 5.08, Hgb 12.0, Hct 39.7, MCV 78.1 L, MCH 23.6 L, MCHC 30.2 L, RDW Std Deviation 43.0, RDW Coeff of Domonique 15.3 H, Plt Count 256, MPV 10.8, Immature Gran % (Auto) 0.300, Neut % (Auto) 64.5, Lymph % (Auto) 28.2, [place] % (Auto) 5.3, Eos % (Auto) 1.1, Baso % (Auto) 0.6, Absolute Neuts (auto) 7.6, Absolute Lymphs (auto) 3.33, Nucleated RBC % 0, PT 13.9, INR 1.1, APTT 25.9, Sodium 135 L, Potassium 3.6, Chloride 103, Carbon Dioxide 25.0, Anion Gap 7, BUN 12, Creatinine 0.56, Estim Creat Clear Calc 140.57, Est GFR (MDRD) Af Amer 152, Est GFR (MDRD) Non-Af 125, BUN/Creatinine Ratio 21.4 H, Glucose 69 L, Lactic Acid 2.5 H*, Calcium 8.7, Total Bilirubin 0.40, AST 34, ALT 28, Alkaline Phosphatase 107, Total Protein 7.6, Albumin 3.7, Globulin 3.9, Albumin/Globulin Ratio 0.9 03/31/24 18:43: Urine Color Yellow, Urine Clarity Clear, Urine pH 7.0, Ur Specific [place] 1.010, Urine Protein Negative, Urine Glucose (UA) Normal, Urine Ketones Negative, Urine Occult Blood 10 H, Urine Nitrite Positive H, Urine Bilirubin Negative, Urine Urobilinogen Normal, Ur Leukocyte Esterase 25 H, Urine RBC 0 SEEN, Urine WBC 0-5 SEEN, Ur Squamous Epith Cells 0-5 SEEN, Urine Bacteria 2+, Urine Mucus 0 SEEN Assessment & Plan Assessment/Plan (1) Complicated urinary tract infection: PLAN: Plan 1. Possible complicated urinary tract infection related to presence of chronic suprapubic catheter. Urine cultures obtained outside hospital growing E. coli that is multidrug-resistant. Uncertain if this is colonization or true infection. Uncertain of the colony count. Will try to obtain fax of results from doctor's office. Urinalysis done here was not impressive. Repeat urine cultures have been obtained. Patient received 1 dose of IV ertapenem in the emergency department due to concerns of possible true infection. For now we will hold off on further antibiotic administration. Consult infectious disease. 2. Elevated lactic acid and mild leukocytosis. Overall clinical picture not suggestive of sepsis. Patient received bolus of crystalloids in the emergency department. Will continue to monitor vital signs. 3. Chronic hepatitis C infection. Continue Petecynthia. Charges/Coding Visit Charges Inpatient E&M: 66452 Init Hosp L3
[2024-03-31] MEDS: Baclofen 10 MG Tablet 30 MG PO (21:16)
[2024-03-31] MEDS: Gabapentin 800 MG Tablet PO (21:17)
[2024-03-31 21:54] LABS: Reflex Lactate? Y
[2024-03-31] MEDS: clonazePAM 0.5 MG Tablet PO (23:19)
[2024-03-31 23:37] LABS: Lactic Acid 0.7 mmol/L (0.4-1.9)
[2024-04-01 03:08] VITALS: BP 115/78; PULSE 84; RESP 18; TEMP 37; O2SAT 96
[2024-04-01 06:01] LABS: Absolute Lymphocyte Count 2.72 X10^3/uL (0.83-4.51); Absolute Neutrophil Count 5.7 X10^3/uL (2.0-7.7); Basophil# 0.07 X10^3/uL; Basophil% 0.8 % (0-1); Eosinophils% 1.1 % (0-5); Hematocrit 36.1 % (37-47); Hemoglobin 10.7 g/dL (12.0-15.0); Lymphocyte # 2.72 X10^3/ul (0.83-4.51); Lymphocyte % 30.1 % (19-41); Mean Corp Hgb Conc 29.6 g/dL (32-36); Mean Corpuscular Hgb 23.1 pg (27.0-32.0); Monocyte# 0.45 X10^3/uL; NRBC Flagged by Analyzer 0 % (0-5); Neutrophil # 5.68 X10^3/uL (2.7-7.7); Neutrophil % 62.7 % (47-70); Platelet Count 213 K/mm3 (150-450); RBC Distribution Width CV 15.3 % (11.6-14.6); RBC Distribution Width SD 42.7 fl (35.1-43.9); Red Blood Count 4.63 M/mm3 (4.2-5.4); White Blood Count 9.1 K/mm3 (4.4-11.0)
[2024-04-01 06:54] LABS: ALB/GLOB Ratio 0.9 RATIO (0.9-2.4); AST(SGOT) 23 U/L (15-37); Alanine Aminotransfer ALT/SGPT 23 U/L (13-56); Albumin, Serum 3.1 g/dL (3.2-5.0); Alkaline Phosphatase 93 U/L (45-117); Anion Gap 4 (5-15); BUN 11 mg/dL (7-18); BUN/Creat Ratio 25.8 RATIO (10-20); Calcium,Total 8.6 mg/dL (8.5-10.1); Chloride 110 mmol/L (98-107); Creatinine, Serum 0.43 mg/dL (0.55-1.02); EST Glomerular Filtration Rate 172 mL/min (>60); Est Glom Filt Rate - Afr Amer 208 mL/min (>60); Estimated Creatinine Clearance 183.06 ml/min; Globulin 3.3 g/dL (2.2-4.2); Glucose 94 mg/dL (74-106); Potassium 3.9 mmol/L (3.5-5.1); Protein, Total 6.4 g/dL (6.4-8.2); Sodium Level 137 mmol/L (136-145)
--- NOTE | 2024-04-01 07:30 | PN.HOSP_ITS ---
Reason for Visit Reason for Visit: Diagnoses Urinary tract infection, site not specified (03/31/24) Subjective Subjective Having sediment in her urine. Concerned that this an infection because she never had sediment in her urine before. Objective Data Objective Data Vital Signs: Vital Signs Temp Pulse Resp BP Pulse Ox O2 Del Method 37.0 C 84 18 115/78 96 Room Air 04/01/24 03:08 04/01/24 03:08 04/01/24 03:08 04/01/24 03:08 04/01/24 03:08 04/01/24 03:15 Oxygen Delivery Method Room Air Weight: 68.039 kg Body Mass Index (BMI) 19.8 Intake & Output: Intake and Output for Last 24 Hours 03/30/24 03/31/24 04/01/24 23:59 23:59 23:59 Intake Total 1560 / 1560 Output Total 400 / 400 1000 / 1000 Balance 1160 / 1160 -1000 / -1000 Lab / Micro Data 04/01/24 05:41 04/01/24 05:41 Labs: Laboratory Results - last 24 hr 03/31/24 17:45: WBC 11.8 H, RBC 5.08, Hgb 12.0, Hct 39.7, MCV 78.1 L, MCH 23.6 L , MCHC 30.2 L, RDW Std Deviation 43.0, RDW Coeff of Domonique 15.3 H, Plt Count 256, MPV 10.8, Immature Gran % (Auto) 0.300, Neut % (Auto) 64.5, Lymph % (Auto) 28.2, [place] % (Auto) 5.3, Eos % (Auto) 1.1, Baso % (Auto) 0.6, Absolute Neuts (auto) 7.6, Absolute Lymphs (auto) 3.33, Nucleated RBC % 0, PT 13.9, INR 1.1, APTT 25.9, Sodium 135 L, Potassium 3.6, Chloride 103, Carbon Dioxide 25.0, Anion Gap 7, BUN 12, Creatinine 0.56, Estim Creat Clear Calc 140.57, Est GFR (MDRD) Af Amer 152, Est GFR (MDRD) Non-Af 125, BUN/Creatinine Ratio 21.4 H, Glucose 69 L, Lactic Acid 2.5 H*, Calcium 8.7, Total Bilirubin 0.40, AST 34, ALT 28, Alkaline Phosphatase 107, Total Protein 7.6, Albumin 3.7, Globulin 3.9, Albumin/Globulin Ratio 0.9 03/31/24 18:43: Urine Color Yellow, Urine Clarity Clear, Urine pH 7.0, Ur Specific [place] 1.010, Urine Protein Negative, Urine Glucose (UA) Normal, Urine Ketones Negative, Urine Occult Blood 10 H, Urine Nitrite Positive H, Urine Bilirubin Negative, Urine Urobilinogen Normal, Ur Leukocyte Esterase 25 H, Urine RBC 0 SEEN, Urine WBC 0-5 SEEN, Ur Squamous Epith Cells 0-5 SEEN, Urine Bacteria 2+, Urine Mucus 0 SEEN 03/31/24 22:53: Lactic Acid 0.7 04/01/24 05:41: WBC 9.1, RBC 4.63, Hgb 10.7 L, Hct 36.1 L, MCV 78.0 L, MCH 23.1 L, MCHC 29.6 L, RDW Std Deviation 42.7, RDW Coeff of Domonique 15.3 H, Plt Count 213, MPV 11.0, Immature Gran % (Auto) 0.300, Neut % (Auto) 62.7, Lymph % (Auto) 30.1, [place] % (Auto) 5.0, Eos % (Auto) 1.1, Baso % (Auto) 0.8, Absolute Neuts (auto) 5.7, Absolute Lymphs (auto) 2.72, Nucleated RBC % 0, Sodium 137, Potassium 3.9, Chloride 110 H, Carbon Dioxide 23.0, Anion Gap 4 L, BUN 11, Creatinine 0.43 L, Estim Creat Clear Calc 183.06, Est GFR (MDRD) Af Amer 208, Est GFR (MDRD) Non-Af 172, BUN/Creatinine Ratio 25.8 H, Glucose 94, Calcium 8.6, Total Bilirubin 0.30, AST 23, ALT 23, Alkaline Phosphatase 93, Total Protein 6.4, Albumin 3.1 L, Globulin 3.3, Albumin/Globulin Ratio 0.9 Physical Exam Const alert and no apparent distress Constitutional Narrative: up in bed. Charles bag at bedside with mirella-colored urine. Psych affect normal Assessment & Plan Assessment/Plan (1) Complicated urinary tract infection: PLAN: Plan Abnormal urine studies * UA here unremarkable. * Reviewed through [facility] the following: * pt had urine culture on 03/12 that was greater than 100k mixed microbiota * UCx 03/26 Enterobacter cloacae That was resistant to ampicillin, Unasyn, Bactrim, Cipro, intermediate to nitrofurantoin. * Urinalysis from that day severe gravity was elevated 1.019, nitrates were negative, leuk esterase was 2+, white blood cells were 6-10 and there are many epithelial cells. * Given those findings on the urine culture and a urinalysis. I do not feel the patient actually did have a urinary tract infection. Though the patient did receive a dose of ertapenem in the emergency room, the admitting hospitalist did not continue any additional antibiotics. Pt upset that I said she does not have an infection. Lactic acidosis: Patient not septic. Did receive IV fluids in the emergency room. No additional workup at this time.
[2024-04-01] MEDS: oxyCODONE 5 MG Tablet PO (08:43)
[2024-04-01] MEDS: Magnesium Chloride 64 MG Delay Rel.Tablet 128 MG PO (08:44)
[2024-04-01] MEDS: DULoxetine Hcl 60 MG Capsule 120 MG PO (08:45)
[2024-04-01] MEDS: Pantoprazole Sodium 20 MG Tablet PO (08:45)
[2024-04-01] MEDS: Baclofen 10 MG Tablet 30 MG PO (08:45)
[2024-04-01] MEDS: Ascorbic Acid 500 MG Tablet PO (08:45)
[2024-04-01] MEDS: Tolterodine Tartrate 2 MG CAP.SA PO (08:46)
[2024-04-01] MEDS: Meloxicam 15 MG Tablet PO (08:46)
[2024-04-01] MEDS: Cilostazol 50 MG Tablet PO (08:46)
[2024-04-01] MEDS: Gabapentin 800 MG Tablet PO (08:49)
[2024-04-01 09:00] VITALS: BP 118/76; PULSE 86; RESP 16; TEMP 36.9; O2SAT 98
--- NOTE | 2024-04-01 09:01 | NURSING ---
04/01/24@0900- PT UPSET ABOUT URINE CULTURE BEING REPEATED. PT STATES I SHOULD OF LISTENED TO MY DOCTOR AND WENT TO A [facility]. I WANT A CIGARETTE ALSO AND I'M ONLY GETTING AN ANTIBIOTIC ONCE A DAY. I'M NOT SITTING HERE WAITING ON A CULTURE THAT WILL TAKE THREE DAYS AND THEY JUST SENT IT YESTERDAY. I ALSO HAVEN'T GOT ANY OF MY MEDICATIONS FOR MY PAIN SINCE LAST NIGHT AND I USUALLY TAKE THEM IN MORNING. PT STATES SHE WANTS TO LEAVE AMA. THIS NURSE EDUCATED AND ANSWERED ALL QUESTIONS. SEE MAR FOR MED ADMINISTRATION. DR. PERRY NOTIFIED. WILL CONTINUE TO MONITOR.
--- NOTE | 2024-04-01 09:23 | DS.PCM_ITS ---
Providers Date of Admission: 03/31/24 Primary Care Physician: Dr. Qamar Zimmer MD Consultations 03/31/24 19:36 Consult: Infectious Disease Routine Consulting Provider: Pradeep Ferrell Reason for Consult: UTI EMERGENT Consult: No MD Notified: Yes Date Notified: 04/01/24 Time Notified: 06:38 Method of Notification: Answering Service Reason For Visit: UTI Diagnosis Discharge Diagnosis (1) Complicated urinary tract infection: Status: Acute Code(s): N39.0 - Urinary tract infection, site not specified Plan Abnormal urine studies * UA here unremarkable. * Reviewed through [email or web address] the following: * pt had urine culture on 03/12 that was greater than 100k mixed microbiota * UCx 03/26 Enterobacter cloacae That was resistant to ampicillin, Unasyn, Bactrim, Cipro, intermediate to nitrofurantoin. * Urinalysis from that day severe gravity was elevated 1.019, nitrates were negative, leuk esterase was 2+, white blood cells were 6-10 and there are many epithelial cells. * Given those findings on the urine culture and a urinalysis. I do not feel the patient actually did have a urinary tract infection. Though the patient did receive a dose of ertapenem in the emergency room, the admitting hospitalist did not continue any additional antibiotics. Pt upset that I said she does not have an infection. Lactic acidosis: Patient not septic. Did receive IV fluids in the emergency room. No additional workup at this time. Medications at Discharge Home Medications baclofen 20 mg tablet 30 mg PO 4X/DAY muscle spasm 10/19/19 duloxetine 60 mg capsule,delayed release 120 mg PO DAILY depression 10/19/19 oxybutynin chloride 10 mg tablet,extended release 24 hr 10 mg PO DAILY bladder 12/24/19 clonazepam 0.5 mg tablet 0.5 mg PO TID PRN Anxiety #9 tabs 07/05/20 cilostazol 50 mg tablet 50 mg PO BID antiplatelet 08/15/22 meloxicam 15 mg tablet 15 mg PO DAILY spasms 08/15/22 ascorbic acid (vitamin C) 500 mg tablet 500 mg PO QODAY 03/27/24 ferrous sulfate 325 mg (65 mg iron) tablet (FeroSul) 325 mg PO QODAY 03/27/24 magnesium 250 mg tablet 250 mg PO DAILY 03/27/24 omeprazole 20 mg capsule,delayed release 20 mg PO DAILY 03/27/24 gabapentin 800 mg tablet 800 mg PO 4X/DAY 03/31/24 glecaprevir 100 mg-pibrentasvir 40 mg tablet (Mavyret) 2 tab PO DAILY 03/31/24 nystatin 100,000 unit/gram topical cream 1 applic topical PRN PRN skin irritation 03/31/24 nystatin 100,000 unit/gram topical powder (Nyamyc) 1 applic topical TID 03/31/24 sodium chloride 0.9 % irrigation solution 1 irrig irrigation UD 03/31/24 terbinafine HCl 1 % topical cream 1 applic topical BID 03/31/24 varenicline 0.5 mg (11)-1 mg (42) tablets in a dose pack 0.5 tab PO DAILY 03/31/24 varenicline 1 mg tablet 1 mg PO BID 03/31/24 Hospital Course Operations None Procedures None Summary of Care Provided Minutes Spent on Discharge: 40 Hospital Course: Patient presents with abnormal urine culture. Urine culture performed on the fifth showed Enterobacter [place]ae that was resistant to ampicillin, Unasyn, Bactrim and Cipro. Intermediate to nitrofurantoin. The only options that were it was sensitive to her IV options including ertapenem, meropenem, Zosyn, gent, tobramycin. However, her urinalysis on that same day showed negative nitrates, 2+ leuk esterase, 6-10 white blood cells and did show bacteria. And urinalysis here showed 0-5 white blood cells, 25 leukoesterase and 2+ bacteria. Patient does have a chronic suprapubic catheter. I talked her that I do not feel that she has an active infection because of urine studies. She disagreed because she is having sediment through her catheter where she did not have that at this level before. I gave her the option to stay here to see infectious disease to see what they thought. She is was upset and said that she will leave. Weight / BMI Weight Weight: 68.039 kg Body Mass Index (BMI) 19.8 ABG / Lab / Microbiology Data 04/01/24 05:41 04/01/24 05:41 Laboratory: Laboratory Results - last 24 hr 03/31/24 17:45: WBC 11.8 H, RBC 5.08, Hgb 12.0, Hct 39.7, MCV 78.1 L, MCH 23.6 L , MCHC 30.2 L, RDW Std Deviation 43.0, RDW Coeff of Domonique 15.3 H, Plt Count 256, MPV 10.8, Immature Gran % (Auto) 0.300, Neut % (Auto) 64.5, Lymph % (Auto) 28.2, [place] % (Auto) 5.3, Eos % (Auto) 1.1, Baso % (Auto) 0.6, Absolute Neuts (auto) 7.6, Absolute Lymphs (auto) 3.33, Nucleated RBC % 0, PT 13.9, INR 1.1, APTT 25.9, Sodium 135 L, Potassium 3.6, Chloride 103, Carbon Dioxide 25.0, Anion Gap 7, BUN 12, Creatinine 0.56, Estim Creat Clear Calc 140.57, Est GFR (MDRD) Af Amer 152, Est GFR (MDRD) Non-Af 125, BUN/Creatinine Ratio 21.4 H, Glucose 69 L, Lactic Acid 2.5 H*, Calcium 8.7, Total Bilirubin 0.40, AST 34, ALT 28, Alkaline Phosphatase 107, Total Protein 7.6, Albumin 3.7, Globulin 3.9, Albumin/Globulin Ratio 0.9 03/31/24 18:43: Urine Color Yellow, Urine Clarity Clear, Urine pH 7.0, Ur Specific [place] 1.010, Urine Protein Negative, Urine Glucose (UA) Normal, Urine Ketones Negative, Urine Occult Blood 10 H, Urine Nitrite Positive H, Urine Bilirubin Negative, Urine Urobilinogen Normal, Ur Leukocyte Esterase 25 H, Urine RBC 0 SEEN, Urine WBC 0-5 SEEN, Ur Squamous Epith Cells 0-5 SEEN, Urine Bacteria 2+, Urine Mucus 0 SEEN 03/31/24 22:53: Lactic Acid 0.7 04/01/24 05:41: WBC 9.1, RBC 4.63, Hgb 10.7 L, Hct 36.1 L, MCV 78.0 L, MCH 23.1 L, MCHC 29.6 L, RDW Std Deviation 42.7, RDW Coeff of Domonique 15.3 H, Plt Count 213, MPV 11.0, Immature Gran % (Auto) 0.300, Neut % (Auto) 62.7, Lymph % (Auto) 30.1, [place] % (Auto) 5.0, Eos % (Auto) 1.1, Baso % (Auto) 0.8, Absolute Neuts (auto) 5.7, Absolute Lymphs (auto) 2.72, Nucleated RBC % 0, Sodium 137, Potassium 3.9, Chloride 110 H, Carbon Dioxide 23.0, Anion Gap 4 L, BUN 11, Creatinine 0.43 L, Estim Creat Clear Calc 183.06, Est GFR (MDRD) Af Amer 208, Est GFR (MDRD) Non-Af 172, BUN/Creatinine Ratio 25.8 H, Glucose 94, Calcium 8.6, Total Bilirubin 0.30, AST 23, ALT 23, Alkaline Phosphatase 93, Total Protein 6.4, Albumin 3.1 L, Globulin 3.3, Albumin/Globulin Ratio 0.9 D/C Instructions Discharge Diet: No restrictions Meaningful Use Info Meaningful Use Meaningful Use Diagnoses (Choose all that apply): None applicable Ischemic Stroke Statin Dosing Therapy Reference: STATIN DOSE THERAPY REFERENCE: * Patients > 75 years receive moderate or high dose statin therapy. * Patients 75 years or YOUNGER should receive HIGH intensity statin dose unless contraindicated. You will be required to document reason for non-treatment if statin daily dose does not meet guidelines. HIGH DOSE STATIN THERAPY DAILY Atorvastatin > than or = to 40 mg Rosuvastatin > than or = to 20 mg Amlodipine + Atorvastatin > than or = to 2.5/40 mg Ezetimibe + Simvastatin 10/80 mg Simvastatin 80mg Discharge Plan Admission Admit Date/Time: 03/31/24 19:38 Primary Reason for Your Visit: abnormal urine studies. Attending Provider: Gray Lees Primary Care Provider: Qamar Zimmer Consulting Providers: Pradeep Ferrell; Grace Denny Instructions Additional Instructions / Restrictions: You had bacteria in your urine that was performed on fifth, however, your other urine studies did not show active sign of infection. Patients that have chronic catheters can have chronic bacteria that in their catheter but not causing an infection. That is why you are not being prescribed any antibiotics. However, you are certainly at risk for infection in the future because you do have a catheter in place. If you do start having symptoms of fevers chills pain in your pubic region that could be an indication of a urinary tract infection and to be evaluated for that. Discharge Orders/Prescriptions Prescriptions: Continued baclofen 20 MG tablet 30 mg PO 4X/DAY duloxetine 60 MG capsule,delayed release(DR/EC) 120 mg PO DAILY oxybutynin chloride 10 MG tablet extended release 24hr 10 mg PO DAILY clonazepam 0.5 MG tablet 0.5 mg PO TID PRN (Reason: Anxiety) Qty: 9 0RF cilostazol 50 mg tablet 50 mg PO BID meloxicam 15 mg tablet 15 mg PO DAILY ferrous sulfate [FeroSul] 325 mg (65 mg iron) tablet 325 mg PO QODAY ascorbic acid (vitamin C) 500 mg tablet 500 mg PO QODAY omeprazole 20 mg capsule,delayed release(DR/EC) 20 mg PO DAILY magnesium 250 mg tablet 250 mg PO DAILY gabapentin 800 mg tablet 800 mg PO 4X/DAY Mavyret 100-40 mg tablet 2 tab PO DAILY Patient Comments: PT AWARE ITS NONFORMULARY nystatin 100,000 unit/gram cream 1 applic topical PRN PRN (Reason: skin irritation) sodium chloride 0.9 % solution 1 irrig irrigation UD nystatin [Nyamyc] 100,000 unit/gram powder 1 applic topical TID varenicline 1 mg tablet 1 mg PO BID Patient Comments: PT HASN STARTED YET varenicline 0.5 mg (11)- 1 mg (42) tablets,dose pack 0.5 tab PO DAILY Patient Comments: PT HASNT STARTED YET Rx Instructions: TAKE 0.5 MG ONCE DAILY ON DAYS 1-2, THEN 0.5MG TWICE DAILY terbinafine HCl 1 % cream 1 applic topical BID Rx Instructions: USE FOR 14 DAYS OR UNTIL RESOLVED Discontinued sulfamethoxazole-trimethoprim 800-160 mg tablet 1 tab PO BID Referrals / Follow Up: Qamar Zimmer MD [Primary Care Provider] - Charges/Coding Visit Charges Inpatient E&M: 78737 Disch Hosp >30min
--- NOTE | 2024-04-01 09:57 | CON.PCM.ID_ITS ---
Assessment & Plan Assessment/Plan (1) Complicated urinary tract infection: PLAN: New symptoms, elevated lactate, mildly elevated wbc here. Reviewed [facility] records. UA from 2 weeks ago with heavy pyuria. Ucx 03/26 with heavy growth of enterobacter. Feeling better after dose of ertapenem. Chronic catheter in place. Discussed options with her. Will give short course of fosfomycin po and start methenamine with vitamin c for long-term prevention given recurrent uti. ID followup as needed, thank you, d/w Dr. Lees (2) Paraplegia: HPI Consult Data Date of Consult: 04/01/24 HPI Narrative Reason for Consultation: recurrent uti HPI Narrative: ROGELIO MARRERO, is a 43 F with hep C, paraplegia, chronic catheter, presented with about two weeks of progressive nausea, malaise, increased pain in BLE, increased cloudy sediment in urine. No chills. Gets UTI several times a year. Follows with urology. Saw PCP, UA done with heavy pyuria, ucx showed 100k enterobacter on 03/26. Given bactrim by PCP without improvement, based on ucx results, sent to ED, given dose of ertapenem last evening. Feeling a little better, nausea and fatigue improved. Full ROS performed and neg except as noted above. [facility] Medical History Ovarian cyst Hepatitis C Kidney stones Chronic indwelling Charles catheter DVT (deep venous thrombosis) Paraplegia Spinal abscess Neurogenic bladder Anxiety and depression Chronic hypotension History of intravenous drug abuse Esophageal reflux Home Medications ?Medication ?Instructions ?Recorded ?Last Taken ?Type baclofen 20 mg tablet 30 mg PO 4X/DAY muscle spasm 10/19/19 03/31/24 History duloxetine 60 mg capsule,delayed 120 mg PO DAILY depression 10/19/19 03/31/24 History release oxybutynin chloride 10 mg 10 mg PO DAILY bladder 12/24/19 03/31/24 History tablet,extended release 24 hr clonazepam 0.5 mg tablet 0.5 mg PO TID PRN Anxiety #9 tabs 07/05/20 05/20/23 Rx cilostazol 50 mg tablet 50 mg PO BID antiplatelet 08/15/22 03/31/24 History meloxicam 15 mg tablet 15 mg PO DAILY spasms 08/15/22 05/20/23 History ferrous sulfate 325 mg (65 mg 325 mg PO QODAY 03/27/24 03/30/24 History iron) tablet (FeroSul) magnesium 250 mg tablet 250 mg PO DAILY 03/27/24 03/31/24 History omeprazole 20 mg capsule,delayed 20 mg PO DAILY 03/27/24 03/31/24 History release gabapentin 800 mg tablet 800 mg PO 4X/DAY 03/31/24 03/31/24 History glecaprevir 100 mg-pibrentasvir 40 2 tab PO DAILY 03/31/24 03/31/24 History mg tablet (Mavyret) nystatin 100,000 unit/gram topical 1 applic topical PRN PRN skin 03/31/24 Unknown History cream irritation nystatin 100,000 unit/gram topical 1 applic topical TID 03/31/24 Unknown History powder (Nyamyc) sodium chloride 0.9 % irrigation 1 irrig irrigation UD 03/31/24 03/31/24 History solution terbinafine HCl 1 % topical cream 1 applic topical BID 03/31/24 03/31/24 History varenicline 0.5 mg (11)-1 mg (42) 0.5 tab PO DAILY 03/31/24 Unknown History tablets in a dose pack varenicline 1 mg tablet 1 mg PO BID 03/31/24 Unknown History ascorbate calcium (vitamin C) 500 500 mg PO BID #60 tabs 04/01/24 Unknown Rx mg tablet methenamine hippurate 1 gram tablet 1 g PO BID #60 tabs 04/01/24 Unknown Rx Allergy/AdvReac Type Severity Reaction Status Date / Time Penicillins AdvReac PT UNSURE Verified 03/31/24 17:23 OF REACTION Family History Mother Multiple sclerosis Surgical History History of surgery on lower extremity S/P debridement History of suprapubic catheter Hx of spinal surgery Social History household members: none Smoking Status: Current every day smoker tobacco type: cigarettes alcohol intake: current Alcohol type: other substance use type: former substance user Date of last use: Prior history of IV drug abuse with heroin and methamphetamine. Physical Exam Const alert, oriented x3 and no apparent distress General Appearance: cooperative HEENT normocephalic and head/scalp atraumatic Eyes PERRL and EOMs intact bilaterally Neck supple and No nodes Resp normal air movement and clear to auscultation bilaterally Cardio regular rate and regular rhythm GI soft to palpation, non-tender and non-distended Extremity General Extremity: Negative for edema Skin no rashes or lesions noted Neuro CN's II-XII intact bilaterally Neuro Narrative: paraplegic Lab / Micro Data Attestation: I reviewed the patient's lab results. 04/01/24 05:41 04/01/24 05:41 Labs: Laboratory Results - last 24 hr 03/31/24 17:45: WBC 11.8 H, RBC 5.08, Hgb 12.0, Hct 39.7, MCV 78.1 L, MCH 23.6 L , MCHC 30.2 L, RDW Std Deviation 43.0, RDW Coeff of Domonique 15.3 H, Plt Count 256, MPV 10.8, Immature Gran % (Auto) 0.300, Neut % (Auto) 64.5, Lymph % (Auto) 28.2, [place] % (Auto) 5.3, Eos % (Auto) 1.1, Baso % (Auto) 0.6, Absolute Neuts (auto) 7.6, Absolute Lymphs (auto) 3.33, Nucleated RBC % 0, PT 13.9, INR 1.1, APTT 25.9, Sodium 135 L, Potassium 3.6, Chloride 103, Carbon Dioxide 25.0, Anion Gap 7, BUN 12, Creatinine 0.56, Estim Creat Clear Calc 140.57, Est GFR (MDRD) Af Amer 152, Est GFR (MDRD) Non-Af 125, BUN/Creatinine Ratio 21.4 H, Glucose 69 L, Lactic Acid 2.5 H*, Calcium 8.7, Total Bilirubin 0.40, AST 34, ALT 28, Alkaline Phosphatase 107, Total Protein 7.6, Albumin 3.7, Globulin 3.9, Albumin/Globulin Ratio 0.9 03/31/24 18:43: Urine Color Yellow, Urine Clarity Clear, Urine pH 7.0, Ur Specific [place] 1.010, Urine Protein Negative, Urine Glucose (UA) Normal, Urine Ketones Negative, Urine Occult Blood 10 H, Urine Nitrite Positive H, Urine Bilirubin Negative, Urine Urobilinogen Normal, Ur Leukocyte Esterase 25 H, Urine RBC 0 SEEN, Urine WBC 0-5 SEEN, Ur Squamous Epith Cells 0-5 SEEN, Urine Bacteria 2+, Urine Mucus 0 SEEN 03/31/24 22:53: Lactic Acid 0.7 04/01/24 05:41: WBC 9.1, RBC 4.63, Hgb 10.7 L, Hct 36.1 L, MCV 78.0 L, MCH 23.1 L, MCHC 29.6 L, RDW Std Deviation 42.7, RDW Coeff of Domonique 15.3 H, Plt Count 213, MPV 11.0, Immature Gran % (Auto) 0.300, Neut % (Auto) 62.7, Lymph % (Auto) 30.1, [place] % (Auto) 5.0, Eos % (Auto) 1.1, Baso % (Auto) 0.8, Absolute Neuts (auto) 5.7, Absolute Lymphs (auto) 2.72, Nucleated RBC % 0, Sodium 137, Potassium 3.9, Chloride 110 H, Carbon Dioxide 23.0, Anion Gap 4 L, BUN 11, Creatinine 0.43 L, Estim Creat Clear Calc 183.06, Est GFR (MDRD) Af Amer 208, Est GFR (MDRD) Non-Af 172, BUN/Creatinine Ratio 25.8 H, Glucose 94, Calcium 8.6, Total Bilirubin 0.30, AST 23, ALT 23, Alkaline Phosphatase 93, Total Protein 6.4, Albumin 3.1 L, Globulin 3.3, Albumin/Globulin Ratio 0.9
--- NOTE | 2024-04-01 10:35 | CASEMGMT ---
Addendum entered by Connie Forrest 04/01/24 10:45: RN CM into pt room, pt sitting up in bed in no distress, pharmacy just finishing up discussing meds. Pt states she self caths every 2 wks. She denies need for assistance with this and states she has been doing this for a very long time. Pt has a CM through [facility]. She states she receives meals 7 days a week and has an aide Sun-Sunday for 8 hrs/day. Pt states that her aide will transport her home as she brought her in yesterday. Pt denies any homegoing needs at this time. Original Note: TC to [facility], pt med cost for fosfomycin is covered at 100%.
--- NOTE | 2024-04-01 10:46 | PHA.DC_ITS ---
Pharmacy [facility] Pharm[facility] Service has performed discharge medication reconciliation and counseling for this patient. 1. ASCORBATE ACID 500MG PO BID 2. FOSFOMYCIN 3GM PO X1 04/03 3. METHENAMINE 1GM PO BID The patient's discharge medication list was reviewed for discrepancies and discrepancies were resolved. The patient was counseled on the following discharge medications and changes in medications for homegoing were reviewed. The Reason for Use, instructions for use, and potential side effects were reviewed for all new medications. The patient's questions regarding all of their medications were answered. The patient was able to verbally demonstrate an understanding of their discharge medications. Patient counseled by certified pharmacy techSantos. Medications at Discharge Home Medications baclofen 20 mg tablet 30 mg PO 4X/DAY muscle spasm 10/19/19 duloxetine 60 mg capsule,delayed release 120 mg PO DAILY depression 10/19/19 oxybutynin chloride 10 mg tablet,extended release 24 hr 10 mg PO DAILY bladder 12/24/19 clonazepam 0.5 mg tablet 0.5 mg PO TID PRN Anxiety #9 tabs 07/05/20 cilostazol 50 mg tablet 50 mg PO BID antiplatelet 08/15/22 meloxicam 15 mg tablet 15 mg PO DAILY spasms 08/15/22 ferrous sulfate 325 mg (65 mg iron) tablet (FeroSul) 325 mg PO QODAY 03/27/24 magnesium 250 mg tablet 250 mg PO DAILY 03/27/24 omeprazole 20 mg capsule,delayed release 20 mg PO DAILY 03/27/24 gabapentin 800 mg tablet 800 mg PO 4X/DAY 03/31/24 glecaprevir 100 mg-pibrentasvir 40 mg tablet (Mavyret) 2 tab PO DAILY 03/31/24 nystatin 100,000 unit/gram topical cream 1 applic topical PRN PRN skin irritation 03/31/24 nystatin 100,000 unit/gram topical powder (Nyamyc) 1 applic topical TID 03/31/24 sodium chloride 0.9 % irrigation solution 1 irrig irrigation UD 03/31/24 terbinafine HCl 1 % topical cream 1 applic topical BID 03/31/24 varenicline 0.5 mg (11)-1 mg (42) tablets in a dose pack 0.5 tab PO DAILY 03/31/24 varenicline 1 mg tablet 1 mg PO BID 03/31/24 ascorbate calcium (vitamin C) 500 mg tablet 500 mg PO BID #60 tabs 04/01/24 fosfomycin tromethamine 3 gram oral packet 1 packet PO .once 3 doses #1 ea 04/01/24 methenamine hippurate 1 gram tablet 1 g PO BID #60 tabs 04/01/24
[2024-04-01] MEDS: FOSFOMYCIN TROMETHAMINE 3 GM PACKET PO (10:58)
[2024-04-01 11:30] VITALS: BP 112/68; PULSE 72; RESP 18; TEMP 36.8; O2SAT 96
--- NOTE | 2024-04-01 11:33 | CASEMGMT ---
Social Work Social Work SW did call pt's case repairer with [employer], Anastasiya Engel, left her a message that pt is going home today. (Anastasiya's number: [phone]). DELMAR Robert
== END 2024-04-01 11:35 | disposition left against medical advice (07) ==
LOC: ED 19:07 → MS3 19:48
PROVIDERS: Admitting Provider Internal Medicine; Emergency Provider Emergency Medicine; PCP Family Medicine
DX: R82.90 Unspecified abnormal findings in urine (principal); G82.20 Paraplegia, unspecified; Z93.50 Unspecified cystostomy status; B18.2 Chronic viral hepatitis C; E87.20 Acidosis, unspecified; M79.605 Pain in left leg; R11.2 Nausea with vomiting, unspecified; R03.1 Nonspecific low blood-pressure reading; Z79.02 Long term (current) use of antithrombotics/antiplatelets; F17.210 Nicotine dependence, cigarettes, uncomplicated; M79.604 Pain in right leg; Z79.899 Other long term (current) drug therapy; Z86.718 Personal history of other venous thrombosis and embolism
CPT/HCPCS: 36415; 80053; 81001; 83605; 85025; 85610; 85730; 87040; 87077; 87086; 87088; 87186; 93005; 96361; 96374; 99221; 99285; J7030; J7040; A4216; G0378

== ENCOUNTER 2024-07-09 16:03 | Inpatient (IN) | payer MEDICAID, SELFPAY ==
[2024-07-09] VITALS (11 sets, daily range): BP systolic 77–98; BP diastolic 51–69; PULSE 72–119; RESP 16–22; TEMP 36.4–36.9; O2SAT 97–99; BMI 2992.0
--- NOTE | 2024-07-09 18:02 | EKG12_ITS ---
Test Reason : GENERAL Blood Pressure : / mmHG Vent. Rate : 073 BPM Atrial Rate : 073 BPM P-R Int : 154 ms QRS Dur : 118 ms QT Int : 388 ms P-R-T Axes : 049 088 069 degrees QTc Int : 427 ms Normal sinus rhythm Incomplete right bundle branch block Borderline ECG Confirmed by Nicolas Todd [id number]), proposal editor CORRINE DUNCAN ([id number]) on 07/14/2024 10:42:53 AM Referred By: Confirmed By:Nicolas Todd
--- NOTE | 2024-07-09 18:11 | EX.ED.DYSGE1 ---
HPI History of Present Illness Chief Complaint: Wound Check Informant: patient Narrative Narrative: Patient is a 43-year-old female pretty complex medical history including paraplegia secondary to spinal abscess at level of C4-C5. She reports that she can move her upper extremities now and is able to lift her hips up. She does have a chronic suprapubic Charles catheter. Has a history of sepsis, C. difficile colitis as well as urinary tract infections. She is presenting today for worsening wound of her tailbone area. She states that about 2 weeks ago she started using a rubber roller to help get the knots out of her lower back. She thinks she might have caused a wound there. Last week her aide noticed it and covered it. On , 6 days ago, they thought it was worsening and wanted her to come to the ER but patient declined. Today she is having increased pain and finally agreed to come in to have it looked at. She states is burning and seeing to the area. She notes that she is feeling little lightheaded today. Denies any change in her urine output or any other complaints at this time. [facility] Medical History Sacral wound Ovarian cyst Hepatitis C Kidney stones Chronic indwelling Charles catheter DVT (deep venous thrombosis) Paraplegia Spinal abscess Neurogenic bladder Anxiety and depression Chronic hypotension History of intravenous drug abuse Esophageal reflux Home Medications ?Medication ?Instructions ?Recorded ?Last Taken ?Type baclofen 20 mg tablet 30 mg PO 4X/DAY muscle spasm 10/19/19 03/31/24 History duloxetine 60 mg capsule,delayed 120 mg PO DAILY depression 10/19/19 03/31/24 History release oxybutynin chloride 10 mg 10 mg PO DAILY bladder 12/24/19 03/31/24 History tablet,extended release 24 hr clonazepam 0.5 mg tablet 0.5 mg PO TID PRN Anxiety #9 tabs 07/05/20 05/20/23 Rx cilostazol 50 mg tablet 50 mg PO BID antiplatelet 08/15/22 03/31/24 History meloxicam 15 mg tablet 15 mg PO DAILY spasms 08/15/22 05/20/23 History ferrous sulfate 325 mg (65 mg 325 mg PO QODAY 03/27/24 03/30/24 History iron) tablet (FeroSul) magnesium 250 mg tablet 250 mg PO DAILY 03/27/24 03/31/24 History gabapentin 800 mg tablet 800 mg PO 4X/DAY 03/31/24 03/31/24 History nystatin 100,000 unit/gram topical 1 applic topical PRN PRN skin 03/31/24 Unknown History cream irritation nystatin 100,000 unit/gram topical 1 applic topical TID 03/31/24 Unknown History powder (Nyamyc) sodium chloride 0.9 % irrigation 1 irrig irrigation UD 03/31/24 03/31/24 History solution terbinafine HCl 1 % topical cream 1 applic topical BID 03/31/24 03/31/24 History ascorbate calcium (vitamin C) 500 500 mg PO BID #60 tabs 04/01/24 Unknown Rx mg tablet Allergy/AdvReac Type Severity Reaction Status Date / Time Penicillins AdvReac PT UNSURE Verified 07/09/24 16:04 OF REACTION Family History Mother Multiple sclerosis Surgical History History of surgery on lower extremity S/P debridement History of suprapubic catheter Hx of spinal surgery Social History household members: none Smoking Status: Heavy Smoker (>10/day) alcohol intake: current Alcohol type: other substance use type: former substance user Date of last use: Prior history of IV drug abuse with heroin and methamphetamine. ROS ROS ED Constitutional Constitutional ED: Reports sweats; Denies chills or fever(s) Cardiovascular Cardiovascular: Denies chest pain or palpitations Respiratory/Chest Respiratory/Chest: Denies cough Gastrointestinal Gastrointestinal: Denies abdominal pain, nausea or vomiting Genitourinary Genitourinary ED: Reports other Details: Denies any change in her odor or urine production ; Denies hematuria Musculoskeletal Musculoskeletal: Reports back pain Integumentary Reports rash Neurologic Neurologic: Reports paresthesias and other Details: Paraplegia from the waist down Hematologic/Lymphatic Hematologic/Lymphatic: Denies easy bleeding or easy bruising EXAM Physical Exam Const Vital Signs: 07/09/24 16:04 07/09/24 16:06 07/09/24 17:06 Temperature 98.5 F 98.4 F 98.4 F Temperature Source Oral Oral Temporal Pulse Rate 119 H 119 H 87 Respiratory Rate 16 16 18 Blood Pressure 86/58 L 86/58 L 92/69 Blood Pressure Mean 67 67 76 Pulse Ox 97 97 97 Oxygen Delivery Method Room Air Room Air Room Air 07/09/24 17:39 07/09/24 17:45 07/09/24 17:45 Temperature Temperature Source Pulse Rate 72 Respiratory Rate 16 18 Blood Pressure 92/69 Blood Pressure Mean 76 Pulse Ox 97 97 Oxygen Delivery Method Room Air Room Air Room Air 07/09/24 18:00 07/09/24 18:00 07/09/24 18:43 Temperature 97.9 F 97.9 F Temperature Source Oral Oral Pulse Rate 88 87 Respiratory Rate 16 16 Blood Pressure 98/59 L 98/59 L Blood Pressure Mean 72 72 Pulse Ox 97 97 Oxygen Delivery Method Room Air Room Air 07/09/24 19:00 07/09/24 20:20 07/09/24 22:00 Temperature 97.9 F 97.7 F L 97.6 F L Temperature Source Temporal Temporal Oral Pulse Rate 73 75 79 Respiratory Rate 16 22 H 17 Blood Pressure 81/54 L 90/56 L 77/51 L Blood Pressure Mean 63 67 59 Pulse Ox 99 98 99 Oxygen Delivery Method Room Air 07/09/24 23:20 07/09/24 23:20 Temperature 97.7 F L 97.7 F L Temperature Source Temporal Pulse Rate 73 73 Respiratory Rate 18 18 Blood Pressure 92/62 92/62 Blood Pressure Mean 72 72 Pulse Ox 99 99 Oxygen Delivery Method Room Air Positive well nourished and well developed General Appearance ED: well developed and NAD HEENT Reports moist mucous membranes Neck supple Chest Wall inspection of chest normal and palpation of chest normal Resp normal respiratory effort and clear to auscultation bilaterally Cardio regular rate and regular rhythm GI normal to inspection, nondistended, normoactive bowel sounds and non-tender Back/Spine Back/Spine Narrative: No midline bony tenderness. Extremity Extremity Narrative: Chronic appearing edema of the lower extremities. Slight deformity of the lower extremities secondary to paraplegia Neuro oriented x3 Neuro Narrative: Paraplegia from the waist down Motor Exam: Negative for general weakness Psych mental status grossly normal Skin Skin Narrative: Patient has roughly triangular-shaped stage II pressure wounds over the coccyx that is approximately 4 cm x 7 cm. No active bleeding. There are some surrounding erythema to the area. No fluctuance appreciated. MDM MDM MDM Narrative Medical decision making narrative: Aly is evaluated for increased sacral wound and pain. Upon arrival patient is hypotensive and tachycardic. Septic workup is initiated. She is given 2 and half liters of fluid in the emergency room. Patient clinically does not appear that ill and is perfusing well. Is possible she could have an early cellulitis and does have pressure wounds up but it does not look so severe as to cause this degree of leukocytosis and hypotension. Workup does show leukocytosis of 14.4 number her lactate is normal. CMP largely normal and her abdomen is soft. Urinalysis does show positive nitrates, 500 leukocyte esterase and 1+ bacteria. Urine culture will be sent. Patient does have a history of urosepsis. Patient is placed on broad-spectrum antibiotics including vancomycin and cefepime (has a penicillin allergy). Due to her hypotension will be admitted to the ICU. Case discussed with hospitalist. Patient is given dose of fentanyl for pain control. And has had to give her further pain medication because of her low blood pressures however. At this time her MAP stayed above 60 and she is mentating well and clinically is perfusing and I do not think she requires pressors. Lab Data Attestation: I reviewed the patient's lab results. Labs: Laboratory Results - last 24 hr 07/09/24 07/09/24 07/09/24 17:45 18:10 19:14 WBC 14.4 H RBC 4.55 Hgb 12.2 Hct 38.4 MCV 84.4 MCH 26.8 L MCHC 31.8 L RDW Std Deviation 50.1 H RDW Coeff of Domonique 16.1 H Plt Count 225 MPV 10.3 Immature Gran % (Auto) 0.400 Neut % (Auto) 70.7 H Lymph % (Auto) 21.3 [place] % (Auto) 6.1 Eos % (Auto) 1.0 Baso % (Auto) 0.5 Absolute Neuts (auto) 10.1 H Absolute Lymphs (auto) 3.06 Nucleated RBC % 0 PT 14.7 INR 1.2 APTT 28.1 Sodium 137 Potassium 3.9 Chloride 104 Carbon Dioxide 27.0 Anion Gap 6 BUN 11 Creatinine 0.48 L Est GFR (MDRD) Af Amer 180 Est GFR (MDRD) Non-Af 148 BUN/Creatinine Ratio 22.7 H Glucose 106 Lactic Acid 0.9 Calcium 8.7 Phosphorus 3.1 Magnesium 1.5 L Total Bilirubin 0.30 AST 14 L ALT 11 L Alkaline Phosphatase 97 C-React Prot Ext Range 9.12 H Total Protein 6.3 L Albumin 2.8 L Globulin 3.5 Albumin/Globulin Ratio 0.8 L Urine Color Yellow Urine Clarity Sl. Cloudy Urine pH 6.5 Ur Specific [place] 1.010 Urine Protein Negative Urine Glucose (UA) Normal Urine Ketones Negative Urine Occult Blood 10 H Urine Nitrite Positive H Urine Bilirubin Negative Urine Urobilinogen Normal Ur Leukocyte Esterase 500 H Urine RBC 0 SEEN Urine WBC 0-5 SEEN Ur Squamous Epith Cells 0-5 SEEN Urine Bacteria 1+ Urine Mucus 0 SEEN Radiography Diagnostic Testing: Clinical Impression(s) from Imaging Studies Chest X-Ray 07/09/24 18:20 IMPRESSION: No focal infiltrate or edema. Electronically Signed: Everette Dietrich MD at 19:08 EDT , Sacrum and Coccyx X-Ray 07/09/24 20:55 IMPRESSION: No fracture or destruction seen. Electronically Signed: Everette Dietrich MD at 21:38 EDT , Rhythm Strip Rhythm Strip: Sinus Rhythm Rate: 73 Ectopy: None EKG Initial EKG: Attestation: I personally reviewed and interpreted this EKG as follows: Interpretation: Sinus Rhythm Comments: Normal sinus rhythm at a rate of 73 bpm Normal axis Incomplete right bundle branch block Normal ST segments Management Discussion w/another healthcare provider: Hospitalist Discharge Plan Dx/Rx/DC Orders Clinical Impression: Complicated urinary tract infection, Paraplegia, Decubitus ulcer of sacral region, stage 2, Sepsis Disposition Disposition: Acute Care Hospital [facility] Discharge Date/Time: 07/09/24 23:49
[2024-07-09] MEDS: 0.9% Normal Saline (1000mL) 1,000 ML 999 ML IV (18:14)
[2024-07-09] MEDS: 0.9% Normal Saline (1000mL) 1,000 ML 50 ML IV (18:14)
[2024-07-09 18:15] LABS: Absolute Lymphocyte Count 3.06 X10^3/uL (0.83-4.51); Absolute Neutrophil Count 10.1 X10^3/uL (2.0-7.7); Basophil# 0.07 X10^3/uL; Basophil% 0.5 % (0-1); Eosinophil# 0.14 X10^3/uL; Hematocrit 38.4 % (37-47); Hemoglobin 12.2 g/dL (12.0-15.0); Lymphocyte # 3.06 X10^3/ul (0.83-4.51); Lymphocyte % 21.3 % (19-41); Mean Corp Hgb Conc 31.8 g/dL (32-36); Mean Corpuscular Hgb 26.8 pg (27.0-32.0); Mean Corpuscular Volume 84.4 fL (81-99); Mean Platelet Vol. 10.3 fl (6.2-12.0); Monocyte# 0.88 X10^3/uL; Monocyte% 6.1 % (0-10); NRBC Flagged by Analyzer 0 % (0-5); Neutrophil # 10.14 X10^3/uL (2.7-7.7); Neutrophil % 70.7 % (47-70); Platelet Count 225 K/mm3 (150-450); RBC Distribution Width CV 16.1 % (11.6-14.6); RBC Distribution Width SD 50.1 fl (35.1-43.9); Red Blood Count 4.55 M/mm3 (4.2-5.4); White Blood Count 14.4 K/mm3 (4.4-11.0)
--- NOTE | 2024-07-09 18:20 | RAD_ITS ---
STUDY: X-RAY CHEST REASON FOR EXAM: Female, 43 years old. Hypotension TECHNIQUE: Single AP portable view of the chest. COMPARISON: March 27, 2024 FINDINGS: The lungs are clear and expanded. There is no demonstrated pleural abnormality. Normal size heart. Normal mediastinum and rufino. Normal visualized pulmonary arteries. Normal visualized aortic arch and descending thoracic aorta. There is postoperative change of the cervical and upper thoracic spine. There are healed bilateral rib fractures. There is no demonstrated abnormality of the visualized soft tissue structures of the upper abdomen. RAD/Chest 1 View (Portable) IMPRESSION: No focal infiltrate or edema. Electronically Signed: Everette Dietrich MD at 19:08 EDT ,
[2024-07-09] MEDS: fentaNYL 100 MCG/2 ML Ampul 50 MCG IV (18:27)
[2024-07-09 18:37] LABS: ALB/GLOB Ratio 0.8 RATIO (0.9-2.4); AST(SGOT) 14 U/L (15-37); Alanine Aminotransfer ALT/SGPT 11 U/L (13-56); Albumin, Serum 2.8 g/dL (3.2-5.0); Alkaline Phosphatase 97 U/L (45-117); Anion Gap 6 (5-15); BUN 11 mg/dL (7-18); BUN/Creat Ratio 22.7 RATIO (10-20); CRP 9.12 mg/L (0.0-3.0); Calcium,Total 8.7 mg/dL (8.5-10.1); Chloride 104 mmol/L (98-107); Creatinine, Serum 0.48 mg/dL (0.55-1.02); EST Glomerular Filtration Rate 148 mL/min (>60); Est Glom Filt Rate - Afr Amer 180 mL/min (>60); Globulin 3.5 g/dL (2.2-4.2); Glucose 106 mg/dL (74-106); Potassium 3.9 mmol/L (3.5-5.1); Protein, Total 6.3 g/dL (6.4-8.2); Sodium Level 137 mmol/L (136-145)
[2024-07-09 18:39] LABS: International Normalized Ratio 1.2; Partial Thromboplast Time 28.1 Seconds (24.1-36.2); Prothrombin Time (Protime)PT. 14.7 SECONDS (11.7-14.9)
[2024-07-09 19:00] LABS: Lactic Acid 0.9 mmol/L (0.4-1.9)
[2024-07-09 20:07] LABS: Mucous, Urine 0 SEEN /hpf (<or=2+); Red Blood Cells-Urine 0 SEEN /hpf (0-5)
[2024-07-09 20:10] LABS: Color, Urine Yellow (Yellow); Glucose, Dipstick Normal (Normal); Ketone-Dipstick Negative (Negative); Leukocyte Esterase-Dipstick 500 /ul (Negative); Nitrite-Dipstick Positive (Negative); Occult Blood-Urine 10 /ul (Negative); Protein-Dipstick Negative (Negative); Urine Bilirubin Dipstick Negative (Negative); Urine Clarity Sl. Cloudy (Clear); Urine Urobilinogen Normal (Normal); Urine pH 6.5 (5.0 - 8.0)
[2024-07-09 20:19] LABS: Bacteria 1+ /hpf (None Seen); Squamous Epithelial Cells - UA 0-5 SEEN /hpf (5-10); White Blood Cells 0-5 SEEN /hpf (0-5)
--- NOTE | 2024-07-09 20:55 | RAD_ITS ---
STUDY: X-RAY - SACRUM/COCCYX REASON FOR EXAM: Female, 43 years old. Wound TECHNIQUE: 3 view(s) of the sacrum and coccyx were obtained. COMPARISON: None. FINDINGS: Normal bilateral sacroiliac joints. Normal visualized sacral ala and fused sacral bodies. Normal sacrococcygeal junction with a normal angulation. Normal coccygeal segments. The presacral soft tissue structures are unremarkable. There is no demonstrated fracture. RAD/Sacrum-Coccyx min 2 Views IMPRESSION: No fracture or destruction seen. Electronically Signed: Everette Dietrich MD at 21:38 EDT ,
--- NOTE | 2024-07-09 22:42 | PCM.HP.STD ---
HPI - General General Date of Admission: 07/09/24 Date of Service: 07/09/24 Chief Complaint: Coccyx wound, worsening appearance. HPI Narrative The patient is a 43 y/o F w/ PMHx: Anxiety and Depression, Hx IVDA/Polysubstance abuse w/ resulting Hepatitis C, Hx VTE, Chronic paraplegia secondary to previous spinal abscess at the level of C4-C5 with some ability to move her upper extremities/lift her hips but limited otherwise with chronic sacral wound and neurogenic bladder with chronic indwelling snowden catheter, Chronic hypotension, GERD, Tobacco use, Hx c-difficile colitis, Frequent complicated UTIs who presents to the [facility] ED on 07/09/24 with worsening wound on the tailbone reportedly starting to use a backfiller 2 weeks prior to help with discomfort unfortunately potentially causing a worsening wound with an aide noticing it and covering it unfortunately worsening with encouragement approximately a week prior to current presentation for patient to present to the ED for evaluation but she declined at that time however she started to have increased pain reporting it as a burning with onset of lightheadedness prompting eventual ED evaluation to be cautious. Workup in the ED included initially T98.5, heart rate 119, BP 86/58, respiratory rate 16, 97% room air with most recent repeat vitals T97.6, heart rate 79, BP 77/51, respiratory rate 17, 99% on room air with MAP vacillating since 1600 but on the low side only as high as 76 however SBP 92 at that time, CBC with WC 14.4, wound 12.2, platelet 225 with left shift, unremarkable coags, CMP with BUN/creatinine 11/0.48, GFR 148, lactic acid 0.9, hepatic profile not marked appearing, CRP 9.12, no ESR performed, urinalysis noted to be cloudy, specific cavity 1.010, positive nitrite, leukocyte esterase 500 with 1+ urine bacteria, urine culture pending per ED, blood culture pending per ED, chest x-ray with no focal infiltrate or edema with chronic changes, plain film of the sacrum/coccyx secondary to wound with no fracture or destruction evident with presacral soft tissue structures unremarkable. In the ED patient ministered 1 L normal saline followed by maintenance IV fluids in addition to fentanyl 50 mcg IV x 1. [facility] Medical History Sacral wound Ovarian cyst Hepatitis C Kidney stones Chronic indwelling Snowden catheter DVT (deep venous thrombosis) Paraplegia Spinal abscess Neurogenic bladder Anxiety and depression Chronic hypotension History of intravenous drug abuse Esophageal reflux Home Medications ?Medication ?Instructions ?Recorded ?Last Taken ?Type baclofen 20 mg tablet 30 mg PO 4X/DAY muscle spasm 10/19/19 03/31/24 History duloxetine 60 mg capsule,delayed 120 mg PO DAILY depression 10/19/19 03/31/24 History release oxybutynin chloride 10 mg 10 mg PO DAILY bladder 12/24/19 03/31/24 History tablet,extended release 24 hr clonazepam 0.5 mg tablet 0.5 mg PO TID PRN Anxiety #9 tabs 07/05/20 05/20/23 Rx cilostazol 50 mg tablet 50 mg PO BID antiplatelet 08/15/22 03/31/24 History meloxicam 15 mg tablet 15 mg PO DAILY spasms 08/15/22 05/20/23 History ferrous sulfate 325 mg (65 mg 325 mg PO QODAY 03/27/24 03/30/24 History iron) tablet (FeroSul) magnesium 250 mg tablet 250 mg PO DAILY 03/27/24 03/31/24 History gabapentin 800 mg tablet 800 mg PO 4X/DAY 03/31/24 03/31/24 History nystatin 100,000 unit/gram topical 1 applic topical PRN PRN skin 03/31/24 Unknown History cream irritation nystatin 100,000 unit/gram topical 1 applic topical TID 03/31/24 Unknown History powder (Nyamyc) sodium chloride 0.9 % irrigation 1 irrig irrigation UD 03/31/24 03/31/24 History solution terbinafine HCl 1 % topical cream 1 applic topical BID 03/31/24 03/31/24 History ascorbate calcium (vitamin C) 500 500 mg PO BID #60 tabs 04/01/24 Unknown Rx mg tablet Allergy/AdvReac Type Severity Reaction Status Date / Time Penicillins AdvReac PT UNSURE Verified 07/09/24 16:04 OF REACTION Family History Mother Multiple sclerosis other (Patient does not know any of her paternal family history.) Surgical History History of surgery on lower extremity S/P debridement History of suprapubic catheter Hx of spinal surgery Social History household members: none Smoking Status: Light Smoker (<10/day) alcohol intake: current Alcohol type: other substance use type: former substance user Date of last use: Prior history of IV drug abuse with heroin and methamphetamine. ROS ROS Narrative Admission Review of Systems: CONSTITUTIONAL: No weight loss, fever, chills, + weakness or fatigue. HEENT: + Lightheadedness. Eyes: No visual loss, blurred vision, double vision or yellow sclerae. Ears, Nose, Throat: No hearing loss, sneezing, congestion, runny nose or sore throat. SKIN: No rash or itching, lesions except + various abrasions, scars especially lower extremities status post previous debridement, coccyx stage II decubitus ulcer with periwound erythema. CARDIOVASCULAR: + Lightheadedness. No chest pain, chest pressure or chest discomfort, palpitations, edema, orthopnea, syncopal events. RESPIRATORY: No shortness of breath, cough or sputum, wheezing, hemoptysis. GASTROINTESTINAL: + anorexia, nausea. No vomiting or diarrhea, abdominal pain, melena, BRBPR. GENITOURINARY: + Cloudy and foul smelling urine, neurogenic bladder with chronic indwelling suprapubic catheter. No dysuria, frequency, urgency. NEUROLOGICAL: + Active lightheadedness, chronic paraplegia with ability to use upper extremities, able to lift hips but distal lower extremities minimally functional, spasticity chronically, sensation altered distally. No headache, dizziness, syncope, paralysis, ataxia, numbness or tingling in the extremities, focal weakness, change in bowel or bladder control, seizure. MUSCULOSKELETAL: + muscle, back pain, joint pain or stiffness. HEMATOLOGIC: Chronic anemia. No+ bleeding or bruising. LYMPHATICS: No enlarged nodes. No history of splenectomy. PSYCHIATRIC: + History of anxiety and depression. ENDOCRINOLOGIC: No reports of sweating, cold or heat intolerance. No polyuria or polydipsia. ALLERGIES: No history of asthma, hives, eczema or rhinitis. Vital Signs Vital Signs Vital Signs: 07/09/24 16:04 07/09/24 16:06 07/09/24 17:06 Temperature 98.5 F 98.4 F 98.4 F Temperature Source Oral Oral Temporal Pulse Rate 119 H 119 H 87 Respiratory Rate 16 16 18 Blood Pressure 86/58 L 86/58 L 92/69 Blood Pressure Mean 67 67 76 Pulse Ox 97 97 97 Oxygen Delivery Method Room Air Room Air Room Air 07/09/24 17:39 07/09/24 17:45 07/09/24 17:45 Temperature Temperature Source Pulse Rate 72 Respiratory Rate 16 18 Blood Pressure 92/69 Blood Pressure Mean 76 Pulse Ox 97 97 Oxygen Delivery Method Room Air Room Air Room Air 07/09/24 18:00 07/09/24 18:00 07/09/24 18:43 Temperature 97.9 F 97.9 F Temperature Source Oral Oral Pulse Rate 88 87 Respiratory Rate 16 16 Blood Pressure 98/59 L 98/59 L Blood Pressure Mean 72 72 Pulse Ox 97 97 Oxygen Delivery Method Room Air Room Air 07/09/24 19:00 07/09/24 20:20 07/09/24 22:00 Temperature 97.9 F 97.7 F L 97.6 F L Temperature Source Temporal Temporal Oral Pulse Rate 73 75 79 Respiratory Rate 16 22 H 17 Blood Pressure 81/54 L 90/56 L 77/51 L Blood Pressure Mean 63 67 59 Pulse Ox 99 98 99 Oxygen Delivery Method Room Air Physical Exam Narrative Physical Examination: General: Awake, alert, oriented x 3 and cooperative, laying in the ED bed, fatigued appearing. Skin: Normal color, normal turgor, no icterus, no cyanosis except for abrasions, stage II coccyx decubitus ulcer with periwound erythema with no fluctuanace or drainage. HEENT: AT/NC, EOMI, PERRLA, mildly dry MM, no carotid bruits or JVD noted. Lungs: Mildly diminished, greater bases, appropriate effort, no rales, ronchi or wheezing. Heart: Regular rate and rhythm; no gallop, rub audible. Abdomen: Soft, NTTP, ND, normal BS, no HSM, suprapubic catheter in place with mild drainage/erythema around the catheter. Extremities: No cyanosis, clubbing, or edema, see skin. Neurological: Patient awake, alert, oriented as noted, cognitive function intact; pupils equally reactive to light and accommodation, cranial nerves grossly normal, paraplegia following cervical spinal abscess status post intervention with ability to move upper extremities, decreased sensation distally, chronic spasms, contractures noted, strength severely global decrease secondary to acute presentation and underlying comorbidities. Psychiatric: Affect appears fatigued, no acute evidence of depressive or anxiety feelings. Results Lab / Micro Data 07/09/24 17:45 07/09/24 17:45 Labs: Laboratory Results - last 24 hr 07/09/24 17:45: WBC 14.4 H, RBC 4.55, Hgb 12.2, Hct 38.4, MCV 84.4, MCH 26.8 L, MCHC 31.8 L, RDW Std Deviation 50.1 H, RDW Coeff of Domonique 16.1 H, Plt Count 225, MPV 10.3, Immature Gran % (Auto) 0.400, Neut % (Auto) 70.7 H, Lymph % (Auto) 21.3, [place] % (Auto) 6.1, Eos % (Auto) 1.0, Baso % (Auto) 0.5, Absolute Neuts (auto) 10.1 H, Absolute Lymphs (auto) 3.06, Nucleated RBC % 0, PT 14.7, INR 1.2, APTT 28.1, Sodium 137, Potassium 3.9, Chloride 104, Carbon Dioxide 27.0, Anion Gap 6, BUN 11, Creatinine 0.48 L, Est GFR (MDRD) Af Amer 180, Est GFR (MDRD) Non-Af 148, BUN/Creatinine Ratio 22.7 H, Glucose 106, Calcium 8.7, Total Bilirubin 0.30, AST 14 L, ALT 11 L, Alkaline Phosphatase 97, C-React Prot Ext Range 9.12 H, Total Protein 6.3 L, Albumin 2.8 L, Globulin 3.5, Albumin/Globulin Ratio 0.8 L 07/09/24 18:10: Lactic Acid 0.9 07/09/24 19:14: Urine Color Yellow, Urine Clarity Sl. Cloudy, Urine pH 6.5, Ur Specific [place] 1.010, Urine Protein Negative, Urine Glucose (UA) Normal, Urine Ketones Negative, Urine Occult Blood 10 H, Urine Nitrite Positive H, Urine Bilirubin Negative, Urine Urobilinogen Normal, Ur Leukocyte Esterase 500 H, Urine RBC 0 SEEN, Urine WBC 0-5 SEEN, Ur Squamous Epith Cells 0-5 SEEN, Urine Bacteria 1+, Urine Mucus 0 SEEN Imaging Radiology Impression Chest X-Ray 07/09/24 18:20 IMPRESSION: No focal infiltrate or edema. Electronically Signed: Everette Dietrich MD at 19:08 EDT , Sacrum and Coccyx X-Ray 07/09/24 20:55 IMPRESSION: No fracture or destruction seen. Electronically Signed: Everette Dietrich MD at 21:38 EDT , Assessment & Plan Assessment/Plan (1) Sepsis: (2) Decubitus ulcer of sacral region, stage 2: (3) Complicated urinary tract infection: PLAN: Plan The patient is a 43 y/o F w/ PMHx: Anxiety and Depression, Hx IVDA/Polysubstance abuse w/ resulting Hepatitis C, Hx VTE, Chronic paraplegia secondary to previous spinal abscess at the level of C4-C5 with some ability to move her upper extremities/lift her hips but limited otherwise with chronic sacral wound and neurogenic bladder with chronic indwelling snowden catheter, Chronic hypotension, GERD, Tobacco use, Hx c-difficile colitis, Frequent complicated UTIs who presents to the [facility] ED on 07/09/24 with worsening wound on the tailbone reportedly starting to use a backfiller 2 weeks prior to help with discomfort unfortunately potentially causing a worsening wound with an aide noticing it and covering it unfortunately worsening with encouragement approximately a week prior to current presentation for patient to present to the ED for evaluation but she declined at that time however she started to have increased pain reporting it as a burning with onset of lightheadedness prompting eventual ED evaluation to be cautious. #1. Acute Sepsis (Source, elevated WBC, decreased MAP/hypotension), Multifactorial, secondary to Complicated Urinary Tract Infection secondary to chronic indwelling suprapubic catheter and #2: Will admit to the ICU given ongoing hypotension although this is stable at her baseline and she has not also been on her midodrine or Florinef per discussion, if necessary will add NEP, UA upon ED evaluation remarkable, pending UCx, continue judicious IVFs, monitor I/Os, continue IV vancomycin and cefepime based on previous cultures with noted most recent enterococcal infection w/ transition as able pending sensitivities and speciation. Infectious disease consulted. Given ICU plan admission will also involve rubbish collection supervisor team. Bld cx x 2 obtained in the ED. PT/OT/case management consulted for discharge planning. #2. Stage II pressure wound over the coccyx with periwound erythema concerning for acute cellulitis: Wound new and only recently formed over the last 2 weeks, will maintain on judicious IV fluids as noted, no drainage therefore will defer wound culture at this time, does have history of MRSA thus will continue on cefepime and IV vancomycin as noted, attempt to offload this region, wound RN consulted, low threshold to involve plastic surgery if worsened appearance but at this time film not marked appearing and only cellulitic around the wound itself with no fluctuance. #3. History of spinal abscess with resulting paraplegia, chronic decubitus ulcers/wounds requiring previous debridement, chronic neurogenic bladder with chronic suprapubic catheter: Given blood pressure although chronic will cautiously continue home Klonopin and gabapentin regimen. Previously had also been on baclofen but currently does not appear listed, will clarify to be certain to avoid withdrawal. Continue treatment as noted #2, encourage frequent position changes, barrier cream, PT, OT, case management consultations for discharge planning. #4. Chronic anemia/iron deficiency anemia, currently normocytic, previously microcytic: Admission hemoglobin 12.2, MCV 84.4, baseline appears more recently 10-12, will continue to closely monitor and repeat CBC in the a.m., previously has required IV Venofer/iron supplementation. #5. Chronic hypotension: Patient with chronic issues with hypotension, orthostasis previously on Florinef as well as midodrine, clarifying as it is not currently listed but to be cautious given this presentation we will maintain on Florinef and midodrine as well. Patient in the ED clinically does not appear severely ill thus low suspicion that blood pressure is related with sepsis as noted above but will continue to closely monitor and if becomes appropriate low threshold to initiate pressor therapy. #6. History of polysubstance abuse, history of IV drug abuse with Hepatitis C: Encourage continued outpatient follow-up with infectious disease, UDS pending, encourage continued clean status. Encourage continued follow-up with infectious disease as previously arranged. #7. Anxiety and depression: We will continue patient home Cymbalta and Klonopin regimen cautiously, encourage continued outpatient follow-up and counseling as previously arranged. #8. History of VTE: Not chronically anticoagulated, will maintain on chemoprophylaxis as noted #9. Tobacco Abuse: Encouraged cessation, inpatient consultation per RT, NR if desired. #10. History of Clostridium C. difficile colitis: Given antibiotic usage as noted will maintain on lactobacillus regimen. #11. DVT prophylaxis: Lovenox. #12. CODE status: Patient does not have healthcare power of trial attorney or living will set up and is uncertain who she would have is her medical decision-maker. Discussed CODE status at length including difference between FULL code, DNR-CCA and DNR-CC status. Following discussions about the differences in these status, requested Full Code status. Advanced Care Planning Face to Face Time: 16 minutes. Charges/Coding Visit Charges Inpatient E&M: 80584 Init Hosp L3 Procedures Hospitalists Procedures: 91711 Advncd Care Plan 30 Min
[2024-07-09] MEDS: Cefepime HCl 1 GM in 0.9% Normal Saline (50mL MB+) 50 ML IV (23:29)
[2024-07-10] VITALS (20 sets, daily range): BP systolic 82–137; BP diastolic 45–98; PULSE 67–100; RESP 12–21; TEMP 36.1–37.1; O2SAT 95–100
[2024-07-10] MEDS: Vancomycin IV 1,000 MG/200 ML BAG 200 MG IV (00:10)
[2024-07-10 00:13] LABS: Magnesium 1.5 mg/dL (1.6-2.6); Phosphorus 3.1 mg/dL (2.5-4.9)
[2024-07-10] MEDS: 0.9% Normal Saline (1000mL) 1,000 ML 999 ML IV ×2 (00:27→01:53)
[2024-07-10 00:56] LABS: Procalcitonin 0.07 ng/mL (0.00-0.09)
[2024-07-10] MEDS: DiphenhydrAMINE 50 MG/ML Syringe 25 MG IV (00:58)
[2024-07-10] MEDS: 0.9% Normal Saline (1000mL) 1,000 ML 100 ML IV ×3 (00:58→20:35)
[2024-07-10] MEDS: Gabapentin 800 MG Tablet PO ×5 (00:59→20:35)
[2024-07-10] MEDS: Midodrine HCl 5 MG Tablet 10 MG PO ×2 (00:59→08:03)
[2024-07-10] MEDS: Fludrocortisone Acetate 0.1 MG Tablet 0.05 MG PO ×2 (00:59→08:03)
[2024-07-10] MEDS: CLARIFY ORDER 1 EACH NOTE (00:59)
[2024-07-10] MEDS: 0.9% Saline Lock 10 ML Syringe IV ×3 (01:00→08:12)
[2024-07-10] MEDS: fentaNYL 100 MCG/2 ML Ampul 25 MCG IV ×4 (01:00→20:34)
[2024-07-10] MEDS: Baclofen 10 MG Tablet 20 MG PO ×5 (01:05→20:36)
--- NOTE | 2024-07-10 01:13 | PCM.RX.CS ---
Consult Antibiotic Management Pharmacy has been consulted to manage selected antibiotic: Vancomycin Type of Intervention Type of Consult: New start Labs Labs: Sodium 137 mmol/L (136-145) 07/09/24 17:45 Potassium 3.9 mmol/L (3.5-5.1) 07/09/24 17:45 Chloride 104 mmol/L (98-107) 07/09/24 17:45 Carbon Dioxide 27.0 mmol/L (21.0-32.0) 07/09/24 17:45 Anion Gap 6 (5-15) 07/09/24 17:45 BUN 11 mg/dL (7-18) 07/09/24 17:45 Creatinine 0.48 mg/dL (0.55-1.02) L 07/09/24 17:45 Est GFR (MDRD) Af Amer 180 mL/min (>60) 07/09/24 17:45 Est GFR (MDRD) Non-Af 148 mL/min (>60) 07/09/24 17:45 BUN/Creatinine Ratio 22.7 RATIO (10-20) H 07/09/24 17:45 Glucose 106 mg/dL (74-106) 07/09/24 17:45 Dosing Weight Weight used for dosin.9 kg Estimated Creatinine Clearance Estimated Creatinine Clearance: >120 Goal Trough Goal Trough: 15-20 mcg/mL Pharmacy Plan for Drug Dosing Pharmacy Plan for Drug Dosing: Pharmacy Service will continue to monitor and adjust dosing as required. 1000MG IN ER, 750MG Q8H TROUGH PRIOR TO 4TH DOSE Follow-Up Labs Follow-Up Labs: Trough: Vancomycin Date/Time Labs Ordered Labs to be done on [date and time ordered]: 07/10 @ 3883
[2024-07-10 01:39] LABS: Amphetamine Urine VISTA NEGATIVE (<1000 ng/mL); Barbiturate Urine VISTA NEGATIVE (< 200 ng/mL); Benzodiazepine Urine VISTA NEGATIVE (< 200 ng/mL); Cocaine Urine VISTA NEGATIVE (< 300 ng/mL); Ecstacy Urine VISTA NEGATIVE (< 500 ng/mL); Methadone Urine VISTA NEGATIVE (< 300 ng/mL); PCP Urine VISTA NEGATIVE (< 25 ng/mL); THC Urine VISTA POSITIVE (< 50 ng/mL); Vista UDS pH Range 6
--- NOTE | 2024-07-10 02:24 | CON.PCM.CC_ITS ---
HPI Consult Data Date of Consult: 07/10/24 HPI Narrative Reason for Consultation: sepsis HPI Narrative: 43Y F PMH including but not limited to prior Hx IVDA/Polysubstance abuse w/ resulting Hepatitis C & chronic paraplegia secondary to previous spinal abscess at the level of C4-C5 with some ability to move her upper extremities/lift her hips but limited otherwise, chronic sacral wound and neurogenic bladder with chronic indwelling snowden catheter, chronic hypotension, GERD, Tobacco use, Hx c- difficile colitis & frequent complicated UTIs who presented overnight to the ED with worsening of her chronic sacral wound 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 Workup in the ED included BP 70-80s/50s. Labs notable for WBC 14.4 & lactic acid 0.9. UA positive nitrites & LE 1+ urine bacteria. CXR with no focal infiltrate & plain film of the sacrum/coccyx secondary to wound with no fracture or destruction evident with presacral soft tissue structures unremarkable. She received sepsis fluid bolus before admission to the ICU. BP remains low but per pt her BP chronically runs 90s/50s. She has no specific complaints at the time of my exam. She is receiving a 3L fluid bolus. Poor IV access with 2x 22g PIV in place at this time. [facility] Medical History Sacral wound Ovarian cyst Hepatitis C Kidney stones Chronic indwelling Snowden catheter DVT (deep venous thrombosis) Paraplegia Spinal abscess Neurogenic bladder Anxiety and depression Chronic hypotension History of intravenous drug abuse Esophageal reflux Home Medications ?Medication ?Instructions ?Recorded ?Last Taken ?Type baclofen 20 mg tablet 30 mg PO 4X/DAY muscle spasm 10/19/19 03/31/24 History duloxetine 60 mg capsule,delayed 120 mg PO DAILY depression 10/19/19 03/31/24 History release oxybutynin chloride 10 mg 10 mg PO DAILY bladder 12/24/19 03/31/24 History tablet,extended release 24 hr clonazepam 0.5 mg tablet 0.5 mg PO TID PRN Anxiety #9 tabs 07/05/20 05/20/23 Rx cilostazol 50 mg tablet 50 mg PO BID antiplatelet 08/15/22 03/31/24 History meloxicam 15 mg tablet 15 mg PO DAILY spasms 08/15/22 05/20/23 History ferrous sulfate 325 mg (65 mg 325 mg PO QODAY 03/27/24 03/30/24 History iron) tablet (FeroSul) magnesium 250 mg tablet 250 mg PO DAILY 03/27/24 03/31/24 History gabapentin 800 mg tablet 800 mg PO 4X/DAY 03/31/24 03/31/24 History nystatin 100,000 unit/gram topical 1 applic topical PRN PRN skin 03/31/24 Unknown History cream irritation nystatin 100,000 unit/gram topical 1 applic topical TID 03/31/24 Unknown History powder (Nyamyc) sodium chloride 0.9 % irrigation 1 irrig irrigation UD 03/31/24 03/31/24 History solution terbinafine HCl 1 % topical cream 1 applic topical BID 03/31/24 03/31/24 History ascorbate calcium (vitamin C) 500 500 mg PO BID #60 tabs 04/01/24 Unknown Rx mg tablet Allergy/AdvReac Type Severity Reaction Status Date / Time Penicillins AdvReac PT UNSURE Verified 07/09/24 16:04 OF REACTION Family History Mother Multiple sclerosis Surgical History History of surgery on lower extremity S/P debridement History of suprapubic catheter Hx of spinal surgery Social History household members: none Smoking Status: Light Smoker (<10/day) alcohol intake: current Alcohol type: other substance use type: former substance user Date of last use: Prior history of IV drug abuse with heroin and methamphetamine. ROS ROS Narrative Full 12 point ROS completed and neg unless stated in HPI above Objective Data Objective Data Vital Signs: Vital Signs Last response 3 Temperature 36.2 C L 07/10/24 00:15 Temperature Source Temporal 07/10/24 00:15 Pulse Rate 69 07/10/24 02:00 Respiratory Rate 15 07/10/24 02:00 Respiratory Effort Normal, Non-Labored 07/10/24 00:45 Respiratory Depth Normal 07/10/24 00:45 Respiratory Pattern Normal 07/10/24 00:45 Blood Pressure 87/57 L 07/10/24 02:00 Blood Pressure Mean 67 07/10/24 02:00 Blood Pressure Source Monitor 07/10/24 02:00 Blood Pressure Position Right Lateral 07/10/24 02:00 Blood Pressure Location Left Arm 07/10/24 02:00 Pulse Ox 98 07/10/24 02:00 Oxygen Delivery Method Room Air 07/10/24 02:00 I&O: I&O Last 24 Hours 3 07/09/24 07/09/24 07/10/24 11:59 23:59 11:59 Intake Total 1000 / 1000 1683.33 / 1683.33 Output Total 720 / 720 Balance 280 / 280 1683.33 / 1683.33 I&O: Total Stay 3 07/09/24 16:03 thru 07/10/24 01:34 Intake Total 2683.33 Output Total 720 Balance 1963.33 Current Meds Ordered / Administered: Current meds ordered / Administered 3 Generic Name Dose Route Start Last Admin Trade Name Freq PRN Reason Stop Dose Admin Acetaminophen 650 mg 07/09/24 23:46 Acetaminophen 325 Mg Tablet PO Q4H PRN PRN Fever, pain 1-07/31 Al Hydrox/Mg Hydrox/Simethicone 30 ml 07/09/24 23:46 Mag /Aluminum/Simeth Wch Udc 30 Ml Oral.Susp PO Q6H PRN PRN Gastric Burning Albuterol Sulfate 2.5 mg 07/09/24 23:46 Albuterol 2.5 Mg/3 Ml Vial.Neb. INHALATION Q2H PRN PRN Dyspnea, wheezing Ascorbic Acid 500 mg 07/10/24 10:00 Ascorbic Acid 500 Mg Tablet PO BID CASSIUS Baclofen 20 mg 07/10/24 01:00 07/10/24 01:05 Baclofen 10 Mg Tablet PO 20 mg 4X/DAY CASSIUS Administration Cilostazol 50 mg 07/10/24 10:00 Cilostazol 50 Mg Tablet PO BID CASSIUS Clonazepam 0.5 mg 07/09/24 23:46 Clonazepam 0.5 Mg Tablet PO TID PRN PRN Anxiety Duloxetine HCl 120 mg 07/10/24 10:00 Duloxetine Hcl 60 Mg Capsule PO DAILY CASSIUS Enoxaparin Sodium 40 mg 07/10/24 10:00 Enoxaparin 40 Mg/0.4 Ml Syringe SC DAILY CASSIUS Fentanyl Citrate 25 mcg 07/09/24 23:46 07/10/24 01:00 Fentanyl 100 Mcg/2 Ml Ampul IV 25 mcg Q2H PRN PRN Administration pain 4-10 Ferrous Sulfate 325 mg 07/11/24 08:00 Ferrous Sulfate 325 Mg Tablet PO Q48H CASSIUS Fludrocortisone Acetate 0.05 mg 07/09/24 23:46 07/10/24 00:59 Fludrocortisone Acetate 0.1 Mg Tablet PO 0.05 mg BREAKFAST CASSIUS Administration Gabapentin 800 mg 07/10/24 01:00 07/10/24 00:59 Gabapentin 800 Mg Tablet PO 800 mg 4X/DAY CASSIUS Administration Guaifenesin 10 ml 07/09/24 23:46 Guaifenesin 10 Ml Udc (200mg/10ml) PO Q4H PRN PRN COUGH Cefepime HCl 2 gm/ Sodium 100 mls @ 200 mls/hr 07/10/24 06:00 Chloride IV 07/17/24 06:01 Q8 CASSIUS Sodium Chloride 1,000 mls @ 100 mls/hr 07/09/24 23:46 07/10/24 00:58 IV 100 mls/hr .Q10H CASSIUS Administration Vancomycin IV-PHARMACY TO DOSE 500 mls @ 250 mls/hr 07/09/24 23:46 1 each/ Sodium Chloride IV X1 PRN Rx to Dose Protocol Sodium Chloride 250 mls @ 15 mls/hr 07/09/24 23:59 IV .[id number] PRN Saline Flush Sodium Chloride 250 mls @ 15 mls/hr 07/09/24 23:59 IV .[id number] PRN Additional IVPB Infusion Vancomycin HCl 750 mg/ Sodium 265 mls @ 250 mls/hr 07/10/24 08:00 Chloride IV Q8H CASSIUS Sodium Chloride 1,000 mls @ 999 mls/hr 07/10/24 01:34 07/10/24 01:53 IV 07/10/24 02:34 999 mls/hr .Q1H1M ONE Administration Melatonin 3 mg 07/09/24 23:46 Melatonin 3 Mg Tablet PO QHS PRN PRN INSOMNIA Meloxicam 15 mg 07/10/24 10:00 Meloxicam 15 Mg Tablet PO DAILY CASSIUS Midodrine 10 mg 07/09/24 23:46 07/10/24 00:59 Midodrine Hcl 5 Mg Tablet PO 10 mg TIDCM CASSIUS Administration Nutritional Formula (Lactose Free) 118 ml 07/10/24 10:00 Ensure Compact 118 Ml Liquid PO 4X/DAY [facility] Nystatin 1 applic 07/10/24 06:00 Nystatin Powder 15gm Bottle TOPICAL TID [facility] Protocol Prochlorperazine Edisylate 5 mg 07/09/24 23:46 Prochlorperazine 10 Mg/2 Ml Vial IV Q4H PRN PRN Breakthrough Nausea/Vomiting Senna/Docusate Sodium 2 tablet 07/09/24 23:46 Senna/Docusate Sodium 1 Tablet PO BID PRN PRN Constipation Sodium Chloride 500 ml 07/09/24 23:46 07/10/24 02:14 Sodium Chloride Irrig Solution 500 Ml IRRIGATION Not Given UD [facility] Sodium Chloride 10 - 40 ml 07/09/24 23:59 07/10/24 01:00 0.9% Saline Lock 10 Ml Syringe IV 20 ml UD PRN Administration SALINE FLUSH Tolterodine Tartrate 2 mg 07/10/24 10:00 Tolterodine Tartrate 2 Mg Cap.Sa PO DAILY [facility] Vancomycin Protocol 1 lab 07/10/24 21:30 Vancomycin Trough/Random Due MC 07/11/24 01:30 DAILY [facility] Lab / Micro Data 07/09/24 17:45 07/09/24 17:45 Labs: Laboratory Results - last 24 hr 07/09/24 17:45: WBC 14.4 H, RBC 4.55, Hgb 12.2, Hct 38.4, MCV 84.4, MCH 26.8 L, MCHC 31.8 L, RDW Std Deviation 50.1 H, RDW Coeff of Domonique 16.1 H, Plt Count 225, MPV 10.3, Immature Gran % (Auto) 0.400, Neut % (Auto) 70.7 H, Lymph % (Auto) 21.3, [place] % (Auto) 6.1, Eos % (Auto) 1.0, Baso % (Auto) 0.5, Absolute Neuts (auto) 10.1 H, Absolute Lymphs (auto) 3.06, Nucleated RBC % 0, PT 14.7, INR 1.2, APTT 28.1, Sodium 137, Potassium 3.9, Chloride 104, Carbon Dioxide 27.0, Anion Gap 6, BUN 11, Creatinine 0.48 L, Est GFR (MDRD) Af Amer 180, Est GFR (MDRD) Non-Af 148, BUN/Creatinine Ratio 22.7 H, Glucose 106, Calcium 8.7, Phosphorus 3.1, Magnesium 1.5 L, Total Bilirubin 0.30, AST 14 L, ALT 11 L, Alkaline Phosphatase 97, C-React Prot Ext Range 9.12 H, Total Protein 6.3 L, Albumin 2.8 L, Globulin 3.5, Albumin/Globulin Ratio 0.8 L 07/09/24 18:10: Lactic Acid 0.9 07/09/24 19:14: Urine Color Yellow, Urine Clarity Sl. Cloudy, Urine pH 6.5, Ur Specific [place] 1.010, Urine Protein Negative, Urine Glucose (UA) Normal, Urine Ketones Negative, Urine Occult Blood 10 H, Urine Nitrite Positive H, Urine Bilirubin Negative, Urine Urobilinogen Normal, Ur Leukocyte Esterase 500 H, Urine RBC 0 SEEN, Urine WBC 0-5 SEEN, Ur Squamous Epith Cells 0-5 SEEN, Urine Bacteria 1+, Urine Mucus 0 SEEN 07/10/24 00:25: Procalcitonin 0.07 07/10/24 01:05: Urine Opiates Screen NEGATIVE, Urine Methadone Screen NEGATIVE, Ur Barbiturates Screen NEGATIVE, Ur Phencyclidine Scrn NEGATIVE, Ur Amphetamines Screen NEGATIVE, MDMA (Ecstasy) Screen NEGATIVE, U Benzodiazepines Scrn NEGATIVE, Urine Cocaine Screen NEGATIVE, U Cannabinoids Screen POSITIVE H, Ur Drug Screen Comment Rhythm Strip Rhythm Strip: Sinus Rhythm Rate: 73 Ectopy: None Imaging Radiology Impression Chest X-Ray 07/09/24 18:20 IMPRESSION: No focal infiltrate or edema. Electronically Signed: Everette Dietrich MD at 19:08 EDT , Sacrum and Coccyx X-Ray 07/09/24 20:55 IMPRESSION: No fracture or destruction seen. Electronically Signed: Everette Dietrich MD at 21:38 EDT , Assessment and Plan . Assessment and plan: PE: General: Chronically ill appearing female in no distress HEENT: anicteric Sclera; nl nose; supple neck, no masses Cardiovascular: Regular Rate and Rhythm; No murmurs, rubs, gallops; no displaced PMI Respiratory: diminished; no crackles, wheezes, or rhonchi Abdominal: Non-tender; Non distended; hypoBS x 4; No Hepatosplenomegaly Extremities: Warm, well perfused; No cyanosis Skin: + sacral wound (dressed); no other rashes Neurological: A&Ox3; chronic paraplegia with no new focal deficits appreciated A/P: #Severe sepsis #UTI #Sacral decubitus ulcer #Chronic paraplegia with neurogenic bladder #Tobacco abuse #Prior Hx IVDU -SP IVF boluses; low dose peripheral NEpi if needed to keep MAP > 55 (chronically low BP, no evid of end-organ dysfunction, higher goals seem in appropriate especially in light of her poor IV access); cont home midodrine + Florinef -Cont emp IV Abx- vanc/cefepime; F/U Cx -Surgery/wound care for further management of her decub ulcer -Gentle IVF, strict I/Os -Counseling re: tobacco cessation PO diet LMWH Guarded prognosis Critical Care Time: 60 min The entirety of this encounter was done via Telemedicine
[2024-07-10] MEDS: Cefepime HCl 2 GM in 0.9% Normal Saline (100mL MB+) 100 ML IV ×3 (04:34→20:34)
[2024-07-10] MEDS: Lactobacillis Acidophilus 1 CAP PO ×3 (04:34→20:35)
[2024-07-10] MEDS: Nystatin Powder 15gm Bottle 1 APPLIC TOPICAL ×3 (04:34→20:44)
[2024-07-10 04:54] LABS: Absolute Lymphocyte Count 2.64 X10^3/uL (0.83-4.51); Absolute Neutrophil Count 7.8 X10^3/uL (2.0-7.7); Basophil# 0.06 X10^3/uL; Basophil% 0.5 % (0-1); Eosinophil# 0.17 X10^3/uL; Eosinophils% 1.5 % (0-5); Hematocrit 35.8 % (37-47); Hemoglobin 11.2 g/dL (12.0-15.0); Lymphocyte # 2.64 X10^3/ul (0.83-4.51); Lymphocyte % 23.1 % (19-41); Mean Corp Hgb Conc 31.3 g/dL (32-36); Mean Corpuscular Volume 86.3 fL (81-99); Mean Platelet Vol. 10.1 fl (6.2-12.0); Monocyte# 0.73 X10^3/uL; Monocyte% 6.4 % (0-10); NRBC Flagged by Analyzer 0 % (0-5); Neutrophil % 68.2 % (47-70); Platelet Count 205 K/mm3 (150-450); RBC Distribution Width SD 50.9 fl (35.1-43.9); Red Blood Count 4.15 M/mm3 (4.2-5.4); White Blood Count 11.4 K/mm3 (4.4-11.0)
[2024-07-10 05:19] LABS: ALB/GLOB Ratio 0.8 RATIO (0.9-2.4); AST(SGOT) 12 U/L (15-37); Alanine Aminotransfer ALT/SGPT 11 U/L (13-56); Albumin, Serum 2.2 g/dL (3.2-5.0); Alkaline Phosphatase 74 U/L (45-117); Anion Gap 3 (5-15); BUN 9 mg/dL (7-18); BUN/Creat Ratio 23.8 RATIO (10-20); Calcium,Total 7.7 mg/dL (8.5-10.1); Chloride 114 mmol/L (98-107); Creatinine, Serum 0.38 mg/dL (0.55-1.02); EST Glomerular Filtration Rate 198 mL/min (>60); Est Glom Filt Rate - Afr Amer 239 mL/min (>60); Estimated Creatinine Clearance 209.77 ml/min; Globulin 2.9 g/dL (2.2-4.2); Glucose 96 mg/dL (74-106); Potassium 3.5 mmol/L (3.5-5.1); Protein, Total 5.1 g/dL (6.4-8.2); Sodium Level 141 mmol/L (136-145)
[2024-07-10] MEDS: Meloxicam 15 MG Tablet PO (08:04)
[2024-07-10] MEDS: DULoxetine Hcl 60 MG Capsule 120 MG PO (08:04)
[2024-07-10] MEDS: Enoxaparin 40 MG/0.4 ML Syringe SC (08:04)
[2024-07-10] MEDS: Tolterodine Tartrate 2 MG CAP.SA PO (08:04)
[2024-07-10] MEDS: Cilostazol 50 MG Tablet PO ×2 (08:05→20:36)
[2024-07-10] MEDS: Vancomycin HCl 750 MG in 0.9% Normal Saline (250mL Bag) 250 ML 250 MG IV ×2 (08:23→16:56)
[2024-07-10] MEDS: clonazePAM 0.5 MG Tablet PO (12:03)
--- NOTE | 2024-07-10 13:10 | CASEMGMT ---
RN?CM?DIGITAL MARKETING INTERN?CM?to room to meet with patient for initial transition planning/care coordination?assessment.?RN?CM?introduced self and role at [facility].? Pt voices understanding and consents to?assessment?at this time.? Pt sitting on edge of bed, stating is uncomfortable, but states is okay w/answering questions. Pt is A/O at this time and answers all questions appropriately.?? Care providers, pharmacy, and demographics verified/updated at this time. PCP: Dr Zimmer Specialists: Pt did see Dr Terrell-urologist in [place], in the past, but states not planning on f/u with him further. She states Dr Zimmer manages her urology needs. .Dr Montanez-neurologist @ [facility] Preferred Pharmacy: [facility] Retail Insurance: [employer] Prescription Benefit:?Yes Living Will/HPOA:?Pt does not currently have LW/HCPOA and declines wanting to complete at this time. She was made aware, should she decide she would like to complete, this can be done w/SW as an OP. She voices understanding. LNOK: 4 adult children. Mother, . Sister, Liseth Living Arrangements: Lives in a mobile home w/ramp entrance. Niece lives w/her. Pt is paraplegic and is W/C and bedbound. Home Health aides assist w/bathing/dressing and IADL's. Niece assists her w/meals when she is home. When pt is home alone, she is able to manage taking care of herself. Has [place] [facility] Waiver and has CM but she does not remember her name. She has aides 5 days/week for 7 hrs a day. and receives [employer] meals. Elina VALERIO, made aware. Transportation: Through insurance. DME: ?States has the following DME:?slide board, W/C, shower chair and SP catheter supplies delivered via mail. Pt changes her indwelling catheter every 2 weeks. Pt states has sufficient supplies. Pt states no need for further DME at this time.? HHC/SNF: [facility]. Discussed discharge planning. Pt would like to discharge home. She states if wound care is needed, she would like HHC, and if she qualifies would like therapy. Pt aware ID following and if IV atb's are needed @ discharge, further CM will discuss further needs/options. Pt wishes to return home and states has no further concerns with going home at time of discharge.? CM?to follow for any further discharge planning/needs.? Pt voices no further concerns/needs at this time.? Advised pt to ask for?CM?if any further questions/concerns/needs arise.? Voices understanding. PLAN:??TBD. Pt prefers home w/HHC if wound care needed, and therapy, if she qualifies. If IV atb's are needed @ discharge, CM/SW to discuss further options w/pt. Pt does have hx of IV drug abuse. Yumiko BSN?RN?CM
--- NOTE | 2024-07-10 13:35 | WOUNDNOTE ---
wound photo: sacrum
--- NOTE | 2024-07-10 13:36 | PN_ITS ---
Subjective Subjective Patient seen and examined. She says she feels much better today. She denied any fever, chills, cough, chest pain, palpitations, dizziness, nausea, vomiting or any other symptoms. Review of systems is otherwise negative. She has remained hemodynamically stable. Objective Data Objective Data Vital Signs: Vital Signs Temp Pulse Resp BP Pulse Ox O2 Del Method 98.2 F 70 12 137/98 H 97 Room Air 07/10/24 12:00 07/10/24 12:00 07/10/24 12:00 07/10/24 12:00 07/10/24 12:00 07/10/24 12:00 Oxygen Delivery Method Room Air Weight: 151 lb 14.376 oz Body Mass Index (BMI) 20.0 Intake & Output: Intake and Output for Last 24 Hours 07/08/24 07/09/24 07/10/24 23:59 23:59 23:59 Intake Total 1000 / 1000 4010.00 / 4010.00 Output Total 720 / 720 1000 / 1000 Balance 280 / 280 3010.00 / 3010.00 Lab / Micro Data 07/10/24 04:45 07/10/24 04:45 Labs: Laboratory Results - last 24 hr 07/09/24 17:45: WBC 14.4 H, RBC 4.55, Hgb 12.2, Hct 38.4, MCV 84.4, MCH 26.8 L, MCHC 31.8 L, RDW Std Deviation 50.1 H, RDW Coeff of Domonique 16.1 H, Plt Count 225, MPV 10.3, Immature Gran % (Auto) 0.400, Neut % (Auto) 70.7 H, Lymph % (Auto) 21.3, [place] % (Auto) 6.1, Eos % (Auto) 1.0, Baso % (Auto) 0.5, Absolute Neuts (auto) 10.1 H, Absolute Lymphs (auto) 3.06, Nucleated RBC % 0, PT 14.7, INR 1.2, APTT 28.1, Sodium 137, Potassium 3.9, Chloride 104, Carbon Dioxide 27.0, Anion Gap 6, BUN 11, Creatinine 0.48 L, Est GFR (MDRD) Af Amer 180, Est GFR (MDRD) Non-Af 148, BUN/Creatinine Ratio 22.7 H, Glucose 106, Calcium 8.7, Phosphorus 3.1, Magnesium 1.5 L, Total Bilirubin 0.30, AST 14 L, ALT 11 L, Alkaline Phosphatase 97, C-React Prot Ext Range 9.12 H, Total Protein 6.3 L, Albumin 2.8 L, Globulin 3.5, Albumin/Globulin Ratio 0.8 L 07/09/24 18:10: Lactic Acid 0.9 07/09/24 19:14: Urine Color Yellow, Urine Clarity Sl. Cloudy, Urine pH 6.5, Ur Specific [place] 1.010, Urine Protein Negative, Urine Glucose (UA) Normal, Urine Ketones Negative, Urine Occult Blood 10 H, Urine Nitrite Positive H, Urine Bilirubin Negative, Urine Urobilinogen Normal, Ur Leukocyte Esterase 500 H, Urine RBC 0 SEEN, Urine WBC 0-5 SEEN, Ur Squamous Epith Cells 0-5 SEEN, Urine Bacteria 1+, Urine Mucus 0 SEEN 07/10/24 00:25: Procalcitonin 0.07 07/10/24 01:05: Urine Opiates Screen NEGATIVE, Urine Methadone Screen NEGATIVE, Ur Barbiturates Screen NEGATIVE, Ur Phencyclidine Scrn NEGATIVE, Ur Amphetamines Screen NEGATIVE, MDMA (Ecstasy) Screen NEGATIVE, U Benzodiazepines Scrn NEGATIVE, Urine Cocaine Screen NEGATIVE, U Cannabinoids Screen POSITIVE H, Ur Drug Screen Comment 07/10/24 04:45: WBC 11.4 H, RBC 4.15 L, Hgb 11.2 L, Hct 35.8 L, MCV 86.3, MCH 27.0, MCHC 31.3 L, RDW Std Deviation 50.9 H, RDW Coeff of Domonique 16.0 H, Plt Count 205, MPV 10.1, Immature Gran % (Auto) 0.300, Neut % (Auto) 68.2, Lymph % (Auto) 23.1, [place] % (Auto) 6.4, Eos % (Auto) 1.5, Baso % (Auto) 0.5, Absolute Neuts (auto) 7.8 H, Absolute Lymphs (auto) 2.64, Nucleated RBC % 0, Sodium 141, Potassium 3.5, Chloride 114 H, Carbon Dioxide 24.0, Anion Gap 3 L, BUN 9, C reatinine 0.38 L, Estim Creat Clear Calc 209.77, Est GFR (MDRD) Af Amer 239, Est GFR (MDRD) Non-Af 198, BUN/Creatinine Ratio 23.8 H, Glucose 96, Calcium 7.7 L, T otal Bilirubin 0.10 L, AST 12 L, ALT 11 L, Alkaline Phosphatase 74, Total Protein 5.1 L, Albumin 2.2 L, Globulin 2.9, Albumin/Globulin Ratio 0.8 L Micro: Microbiology 07/09/24 19:14 Urine Catheter - Catheter Urine Culture - Preliminary 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 Electronically Signed: Everette Dietrich MD at 19:08 EDT , Sacrum and Coccyx X-Ray 07/09/24 20:55 IMPRESSION: No fracture or destruction seen. Electronically Signed: Everette Dietrich MD at 21:38 EDT , Rhythm Strip Rhythm Strip: Sinus Rhythm Rate: 73 Ectopy: None Physical Exam Const alert, oriented x3 and no apparent distress General Appearance: cooperative HEENT normocephalic, head/scalp atraumatic, TM's normal bilaterally and moist oral mucous membranes Eyes PERRL and EOMs intact bilaterally Neck no lymphadenopathy and supple Lymph Lymphatic: no lymphadenopathy noted Resp normal respiratory effort, normal air movement and clear to auscultation bilaterally Cardio regular rate, regular rhythm, S1 normal heart sound and no murmurs GI normal to inspection, nondistended, normoactive bowel sounds, soft to palpation and non-tender Extremity normal capillary refill, no clubbing, cyanosis or edema and no calf tenderness Skin Skin Narrative: intact dressing over sacrum Neuro CN's II-XII intact bilaterally Neuro Narrative: chronic paraplegia Motor Exam: general weakness Psych thought process normal and cooperative Appearance: appropriate Assessment & Plan Assessment/Plan (1) Decubitus ulcer of sacral region, stage 2: (2) Sepsis: (3) Complicated urinary tract infection: PLAN: Plan #Sepsis due to complicated UTI and infected Stage II sacral decubitus ulcer * on IV vancomycin and cefepime * wound and blood culturs ordered * ID on board. Critical care on board. * hydrate gently with iVF * wbc is down to 11.4 from 14 on admission. * #Infected sacral decubitus ulcers * hs a wound over her coccyx. Currently on IV vancomycina dn cefepime * wound care on board. * #History of spinal abscess with resulting paraplegia * has chronic neurogenic bladder and has a chronic suprapubic catheter in situ * PT/OT on board. * #Chronic hypotension * on florinef. Also on midodrine. * #History of polysubstance abuse with hepatitis C * counseled to quit. * counseled to follow up with gastroenterology on outpatient basis. 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 Stable DVT prophylaxis: lovenox Charges/Coding Visit Charges Inpatient E&M: 26667 Subs Hosp L3
--- NOTE | 2024-07-10 15:55 | CON.PCM.ID_ITS ---
Assessment & Plan Assessment/Plan (1) Decubitus ulcer of sacral region, stage 2: (2) Complicated urinary tract infection: PLAN: transient hypotension, no fever, no lactic acidosis. Mild wbc rise. Not clear if she meets sepsis criteria. Wound over sacrum does not appear grossly infected. Ordered wound cx. Other cxs pending. On empiric vanc/cefepime. Will follow, thank you HPI Consult Data Date of Consult: 07/10/24 HPI Narrative Reason for Consultation: infected wound HPI Narrative: ROGELIO MARRERO, is a 43 F with h/o paraplegia, IVDU, presented with 2 weeks worsening sacral wound after using a roller on it. Some redness, drainage. No fever or chills. Admitted to icu on vanc/cefepime. Feeling ok this AM, some leg spasms. Full ROS performed and neg except as noted above. [facility] [place] Medical History Sacral wound Ovarian cyst Hepatitis C Kidney stones Chronic indwelling Charles catheter DVT (deep venous thrombosis) Paraplegia Spinal abscess Neurogenic bladder Anxiety and depression Chronic hypotension History of intravenous drug abuse Esophageal reflux Home Medications ?Medication ?Instructions ?Recorded ?Last Taken ?Type baclofen 20 mg tablet 30 mg PO 4X/DAY muscle spasm 10/19/19 03/31/24 History duloxetine 60 mg capsule,delayed 120 mg PO DAILY depression 10/19/19 03/31/24 History release oxybutynin chloride 10 mg 10 mg PO DAILY bladder 12/24/19 03/31/24 History tablet,extended release 24 hr clonazepam 0.5 mg tablet 0.5 mg PO TID PRN Anxiety #9 tabs 07/05/20 05/20/23 Rx cilostazol 50 mg tablet 50 mg PO BID antiplatelet 08/15/22 03/31/24 History meloxicam 15 mg tablet 15 mg PO DAILY spasms 08/15/22 05/20/23 History ferrous sulfate 325 mg (65 mg 325 mg PO QODAY 03/27/24 03/30/24 History iron) tablet (FeroSul) magnesium 250 mg tablet 250 mg PO DAILY 03/27/24 03/31/24 History gabapentin 800 mg tablet 800 mg PO 4X/DAY 03/31/24 03/31/24 History nystatin 100,000 unit/gram topical 1 applic topical PRN PRN skin 03/31/24 Unknown History cream irritation nystatin 100,000 unit/gram topical 1 applic topical TID 03/31/24 Unknown History powder (Nyamyc) sodium chloride 0.9 % irrigation 1 irrig irrigation UD 03/31/24 03/31/24 History solution terbinafine HCl 1 % topical cream 1 applic topical BID 03/31/24 03/31/24 History ascorbate calcium (vitamin C) 500 500 mg PO BID #60 tabs 04/01/24 Unknown Rx mg tablet Allergy/AdvReac Type Severity Reaction Status Date / Time Penicillins AdvReac PT UNSURE Verified 07/09/24 16:04 OF REACTION Family History Mother Multiple sclerosis Surgical History History of surgery on lower extremity S/P debridement History of suprapubic catheter Hx of spinal surgery Social History household members: none Smoking Status: Light Smoker (<10/day) alcohol intake: current Alcohol type: other substance use type: former substance user Date of last use: Prior history of IV drug abuse with heroin and methamphetamine. Physical Exam Const alert, oriented x3 and no apparent distress General Appearance: cooperative HEENT normocephalic and head/scalp atraumatic Eyes PERRL and EOMs intact bilaterally Neck supple and No nodes Resp normal air movement and clear to auscultation bilaterally Cardio regular rate and regular rhythm GI soft to palpation, non-tender and non-distended Extremity General Extremity: Negative for edema Skin Skin Narrative: shallow sacral wound, no odor or purulence, minimal redness Neuro CN's II-XII intact bilaterally Neuro Narrative: paraplegia Lab / Micro Data Attestation: I reviewed the patient's lab results. 07/10/24 04:45 07/10/24 04:45 Labs: Laboratory Results - last 24 hr 07/09/24 17:45: WBC 14.4 H, RBC 4.55, Hgb 12.2, Hct 38.4, MCV 84.4, MCH 26.8 L, MCHC 31.8 L, RDW Std Deviation 50.1 H, RDW Coeff of Domonique 16.1 H, Plt Count 225, MPV 10.3, Immature Gran % (Auto) 0.400, Neut % (Auto) 70.7 H, Lymph % (Auto) 21.3, [place] % (Auto) 6.1, Eos % (Auto) 1.0, Baso % (Auto) 0.5, Absolute Neuts (auto) 10.1 H, Absolute Lymphs (auto) 3.06, Nucleated RBC % 0, PT 14.7, INR 1.2, APTT 28.1, Sodium 137, Potassium 3.9, Chloride 104, Carbon Dioxide 27.0, Anion Gap 6, BUN 11, Creatinine 0.48 L, Est GFR (MDRD) Af Amer 180, Est GFR (MDRD) Non-Af 148, BUN/Creatinine Ratio 22.7 H, Glucose 106, Calcium 8.7, Phosphorus 3.1, Magnesium 1.5 L, Total Bilirubin 0.30, AST 14 L, ALT 11 L, Alkaline Phosphatase 97, C-React Prot Ext Range 9.12 H, Total Protein 6.3 L, Albumin 2.8 L, Globulin 3.5, Albumin/Globulin Ratio 0.8 L 07/09/24 18:10: Lactic Acid 0.9 07/09/24 19:14: Urine Color Yellow, Urine Clarity Sl. Cloudy, Urine pH 6.5, Ur Specific [place] 1.010, Urine Protein Negative, Urine Glucose (UA) Normal, Urine Ketones Negative, Urine Occult Blood 10 H, Urine Nitrite Positive H, Urine Bilirubin Negative, Urine Urobilinogen Normal, Ur Leukocyte Esterase 500 H, Urine RBC 0 SEEN, Urine WBC 0-5 SEEN, Ur Squamous Epith Cells 0-5 SEEN, Urine Bacteria 1+, Urine Mucus 0 SEEN 07/10/24 00:25: Procalcitonin 0.07 07/10/24 01:05: Urine Opiates Screen NEGATIVE, Urine Methadone Screen NEGATIVE, Ur Barbiturates Screen NEGATIVE, Ur Phencyclidine Scrn NEGATIVE, Ur Amphetamines Screen NEGATIVE, MDMA (Ecstasy) Screen NEGATIVE, U Benzodiazepines Scrn NEGATIVE, Urine Cocaine Screen NEGATIVE, U Cannabinoids Screen POSITIVE H, Ur Drug Screen Comment 07/10/24 04:45: WBC 11.4 H, RBC 4.15 L, Hgb 11.2 L, Hct 35.8 L, MCV 86.3, MCH 27.0, MCHC 31.3 L, RDW Std Deviation 50.9 H, RDW Coeff of Domonique 16.0 H, Plt Count 205, MPV 10.1, Immature Gran % (Auto) 0.300, Neut % (Auto) 68.2, Lymph % (Auto) 23.1, [place] % (Auto) 6.4, Eos % (Auto) 1.5, Baso % (Auto) 0.5, Absolute Neuts (auto) 7.8 H, Absolute Lymphs (auto) 2.64, Nucleated RBC % 0, Sodium 141, Potassium 3.5, Chloride 114 H, Carbon Dioxide 24.0, Anion Gap 3 L, BUN 9, C reatinine 0.38 L, Estim Creat Clear Calc 209.77, Est GFR (MDRD) Af Amer 239, Est GFR (MDRD) Non-Af 198, BUN/Creatinine Ratio 23.8 H, Glucose 96, Calcium 7.7 L, T otal Bilirubin 0.10 L, AST 12 L, ALT 11 L, Alkaline Phosphatase 74, Total Protein 5.1 L, Albumin 2.2 L, Globulin 2.9, Albumin/Globulin Ratio 0.8 L Micro: Microbiology 07/09/24 19:14 Urine Catheter - Catheter Urine Culture - Preliminary 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 Electronically Signed: Everette Dietrich MD at 19:08 EDT , Sacrum and Coccyx X-Ray 07/09/24 20:55 IMPRESSION: No fracture or destruction seen. Electronically Signed: Everette Dietrich MD at 21:38 EDT ,
[2024-07-10] MEDS: 0.9% Normal Saline (250mL Bag) 250 ML 15 ML IV (16:59)
[2024-07-10] MEDS: Vancomycin Trough/Random Due 1 LAB MC (23:29)
--- NOTE | 2024-07-10 23:40 | PCM.PN.TICU ---
Objective Data Objective Data Vital Signs: Vital Signs Last response Temperature 36.1 C L 07/10/24 20:00 Temperature Source Temporal 07/10/24 20:00 Pulse Rate 67 07/10/24 20:00 Pulse Strength Normal (2+) 07/10/24 22:00 Respiratory Rate 16 07/10/24 20:00 Respiratory Effort Normal, Non-Labored 07/10/24 20:00 Respiratory Depth Normal 07/10/24 20:00 Respiratory Pattern Normal 07/10/24 20:00 Blood Pressure 111/81 H 07/10/24 20:00 Blood Pressure Mean 91 07/10/24 20:00 Blood Pressure Source Monitor 07/10/24 20:00 Blood Pressure Position Semi-Fowlers 07/10/24 20:00 Blood Pressure Location Left Arm 07/10/24 20:00 Pulse Ox 98 07/10/24 20:00 Oxygen Delivery Method Room Air 07/10/24 20:00 I&O: I&O Last 24 Hours 07/09/24 07/10/24 07/10/24 23:59 11:59 23:59 Intake Total 1000 / 1000 4010.00 / 5665.25 1655.25 / 5665.25 Output Total 720 / 720 1000 / 1500 500 / 1500 Balance 280 / 280 3010.00 / 4165.25 1155.25 / 4165.25 I&O: Total Stay 07/09/24 16:03 thru 07/10/24 21:04 Intake Total 6665.25 Output Total 2220 Balance 4445.25 Current Meds Ordered / Administered: Current meds ordered / Administered Generic Name Dose Route Start Last Admin Trade Name Garrick PRN Reason Stop Dose Admin Acetaminophen 650 mg 07/09/24 23:46 Acetaminophen 325 Mg Tablet PO Q4H PRN PRN Fever, pain 1-10/10 Al Hydrox/Mg Hydrox/Simethicone 30 ml 07/09/24 23:46 Mag /Aluminum/Simeth Wch Udc 30 Ml Oral.Susp PO Q6H PRN PRN Gastric Burning Albuterol Sulfate 2.5 mg 07/09/24 23:46 Albuterol 2.5 Mg/3 Ml Vial.Neb. INHALATION Q2H PRN PRN Dyspnea, wheezing Ascorbic Acid 500 mg 07/10/24 10:00 07/10/24 20:24 Ascorbic Acid 500 Mg Tablet PO Not Given BID CASSIUS Baclofen 20 mg 07/10/24 01:00 07/10/24 20:36 Baclofen 10 Mg Tablet PO 20 mg 4X/DAY CASSIUS Administration Cilostazol 50 mg 07/10/24 10:00 07/10/24 20:36 Cilostazol 50 Mg Tablet PO 50 mg BID CASSIUS Administration Clonazepam 0.5 mg 07/09/24 23:46 07/10/24 12:03 Clonazepam 0.5 Mg Tablet PO 0.5 mg TID PRN PRN Administration Anxiety Duloxetine HCl 120 mg 07/10/24 10:00 07/10/24 08:04 Duloxetine Hcl 60 Mg Capsule PO 120 mg DAILY CASSIUS Administration Enoxaparin Sodium 40 mg 07/10/24 10:00 07/10/24 08:04 Enoxaparin 40 Mg/0.4 Ml Syringe SC 40 mg DAILY CASSIUS Administration Fentanyl Citrate 25 mcg 07/09/24 23:46 07/10/24 20:34 Fentanyl 100 Mcg/2 Ml Ampul IV 25 mcg Q2H PRN PRN Administration pain 4-10 Ferrous Sulfate 325 mg 07/11/24 08:00 Ferrous Sulfate 325 Mg Tablet PO Q48H CASSIUS Fludrocortisone Acetate 0.05 mg 07/09/24 23:46 07/10/24 08:03 Fludrocortisone Acetate 0.1 Mg Tablet PO 0.05 mg BREAKFAST CASSIUS Administration Gabapentin 800 mg 07/10/24 01:00 07/10/24 20:35 Gabapentin 800 Mg Tablet PO 800 mg 4X/DAY CASSIUS Administration Guaifenesin 10 ml 07/09/24 23:46 Guaifenesin 10 Ml Udc (200mg/10ml) PO Q4H PRN PRN COUGH Cefepime HCl 2 gm/ Sodium 100 mls @ 200 mls/hr 07/10/24 06:00 07/10/24 21:04 Chloride IV 07/17/24 06:01 Infused Q8 CASSIUS Infusion Sodium Chloride 1,000 mls @ 100 mls/hr 07/09/24 23:46 07/10/24 20:35 IV 100 mls/hr .Q10H CASSIUS Administration Vancomycin IV-PHARMACY TO DOSE 500 mls @ 250 mls/hr 07/09/24 23:46 1 each/ Sodium Chloride IV X1 PRN Rx to Dose Protocol Sodium Chloride 250 mls @ 15 mls/hr 07/09/24 23:59 07/10/24 17:00 IV 0 mls/hr .[id number] PRN Infusion Saline Flush Sodium Chloride 250 mls @ 15 mls/hr 07/09/24 23:59 IV .[id number] PRN Additional IVPB Infusion Vancomycin HCl 750 mg/ Sodium 265 mls @ 250 mls/hr 07/10/24 08:00 07/10/24 18:09 Chloride IV Infused Q8H CASSIUS Infusion Melatonin 3 mg 07/09/24 23:46 Melatonin 3 Mg Tablet PO QHS PRN PRN INSOMNIA Meloxicam 15 mg 07/10/24 10:00 07/10/24 08:04 Meloxicam 15 Mg Tablet PO 15 mg DAILY CASSIUS Administration Midodrine 10 mg 07/09/24 23:46 07/10/24 16:57 Midodrine Hcl 5 Mg Tablet PO Not Given TIDCM CASSIUS Nystatin 1 applic 07/10/24 06:00 07/10/24 20:44 Nystatin Powder 15gm Bottle TOPICAL 1 applic TID CASSIUS Administration Protocol Prochlorperazine Edisylate 5 mg 07/09/24 23:46 Prochlorperazine 10 Mg/2 Ml Vial IV Q4H PRN PRN Breakthrough Nausea/Vomiting Senna/Docusate Sodium 2 tablet 07/09/24 23:46 Senna/Docusate Sodium 1 Tablet PO BID PRN PRN Constipation Sodium Chloride 500 ml 07/09/24 23:46 07/10/24 20:38 Sodium Chloride Irrig Solution 500 Ml IRRIGATION Not Given UD CASSIUS Sodium Chloride 10 - 40 ml 07/09/24 23:59 07/10/24 08:12 0.9% Saline Lock 10 Ml Syringe IV 10 ml UD PRN Administration SALINE FLUSH Tolterodine Tartrate 2 mg 07/10/24 10:00 07/10/24 08:04 Tolterodine Tartrate 2 Mg Cap.Sa PO 2 mg DAILY CASSIUS Administration Vancomycin Protocol 1 lab 07/10/24 21:30 07/10/24 23:29 Vancomycin Trough/Random Due MC 07/11/24 01:30 1 lab DAILY CASSIUS Administration Lab / Micro Data 07/10/24 04:45 07/10/24 04:45 Labs: Laboratory Results - last 24 hr 07/09/24 17:45: Phosphorus 3.1, Magnesium 1.5 L 07/10/24 00:25: Procalcitonin 0.07 07/10/24 01:05: Urine Opiates Screen NEGATIVE, Urine Methadone Screen NEGATIVE, Ur Barbiturates Screen NEGATIVE, Ur Phencyclidine Scrn NEGATIVE, Ur Amphetamines Screen NEGATIVE, MDMA (Ecstasy) Screen NEGATIVE, U Benzodiazepines Scrn NEGATIVE, Urine Cocaine Screen NEGATIVE, U Cannabinoids Screen POSITIVE H, Ur Drug Screen Comment 07/10/24 04:45: WBC 11.4 H, RBC 4.15 L, Hgb 11.2 L, Hct 35.8 L, MCV 86.3, MCH 27.0, MCHC 31.3 L, RDW Std Deviation 50.9 H, RDW Coeff of Domonique 16.0 H, Plt Count 205, MPV 10.1, Immature Gran % (Auto) 0.300, Neut % (Auto) 68.2, Lymph % (Auto) 23.1, [place] % (Auto) 6.4, Eos % (Auto) 1.5, Baso % (Auto) 0.5, Absolute Neuts (auto) 7.8 H, Absolute Lymphs (auto) 2.64, Nucleated RBC % 0, Sodium 141, Potassium 3.5, Chloride 114 H, Carbon Dioxide 24.0, Anion Gap 3 L, BUN 9, Creatinine 0.38 L, Estim Creat Clear Calc 209.77, Est GFR (MDRD) Af Amer 239, Est GFR (MDRD) Non-Af 198, BUN/Creatinine Ratio 23.8 H, Glucose 96, Calcium 7.7 L, Total Bilirubin 0.10 L, AST 12 L, ALT 11 L, Alkaline Phosphatase 74, Total Protein 5.1 L, Albumin 2.2 L, Globulin 2.9, Albumin/Globulin Ratio 0.8 L Micro: Microbiology 07/09/24 19:14 Urine Catheter - Catheter Urine Culture - Preliminary GNR 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 Assessment and plan: Patient seen and examined Chart and data reviewed She has not required vasopressors LA now WNL UCX reveals GNR Continue ABX and volume expansion The entirety of this encounter was done via Telemedicine
[2024-07-10 23:58] LABS: Vancomycin, Trough Level 10.9 ug/mL (5.0-15.0)
--- NOTE | 2024-07-11 00:07 | PHA.PHARE_ITS ---
Consult Antibiotic Management Pharmacy has been consulted to manage selected antibiotic: Vancomycin Type of Intervention Type of Consult: Follow-up Labs Labs: Sodium 141 mmol/L (136-145) 07/10/24 04:45 Potassium 3.5 mmol/L (3.5-5.1) 07/10/24 04:45 Chloride 114 mmol/L (98-107) H 07/10/24 04:45 Carbon Dioxide 24.0 mmol/L (21.0-32.0) 07/10/24 04:45 Anion Gap 3 (5-15) L 07/10/24 04:45 BUN 9 mg/dL (7-18) 07/10/24 04:45 Creatinine 0.38 mg/dL (0.55-1.02) L 07/10/24 04:45 Est GFR (MDRD) Af Amer 239 mL/min (>60) 07/10/24 04:45 Est GFR (MDRD) Non-Af 198 mL/min (>60) 07/10/24 04:45 BUN/Creatinine Ratio 23.8 RATIO (10-20) H 07/10/24 04:45 Glucose 96 mg/dL (74-106) 07/10/24 04:45 Vancomycin Trough 10.9 ug/mL (5.0-15.0) 07/10/24 23:17 Microbiology Microbiology: Microbiology 07/09/24 19:14 Urine Catheter - Catheter Urine Culture - Preliminary GNR 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 TROUGH 10.9 @ 6.5 HRS. INCREASE TO 1GM Q8H AND FOLLOW UP TROUGH PRIOR TO 4TH DOSE Follow-Up Labs Follow-Up Labs: Trough: Vancomycin Date/Time Labs Ordered Labs to be done on [date and time ordered]: 07/11 @ 2368
[2024-07-11 00:29] VITALS: BP 113/69; PULSE 70; RESP 16; TEMP 36.3; O2SAT 98
[2024-07-11] MEDS: clonazePAM 0.5 MG Tablet PO (00:30)
[2024-07-11] MEDS: Vancomycin IV 1,000 MG/200 ML BAG 200 MG IV ×2 (00:31→09:39)
[2024-07-11 04:50] VITALS: BP 124/87; PULSE 82; RESP 18; TEMP 36.6; O2SAT 96
[2024-07-11] MEDS: 0.9% Normal Saline (1000mL) 1,000 ML 100 ML IV (04:55)
[2024-07-11] MEDS: fentaNYL 100 MCG/2 ML Ampul 25 MCG IV ×3 (04:58→14:15)
[2024-07-11] MEDS: 0.9% Saline Lock 10 ML Syringe IV (04:59)
[2024-07-11] MEDS: Cefepime HCl 2 GM in 0.9% Normal Saline (100mL MB+) 100 ML IV ×2 (05:05→14:00)
[2024-07-11] MEDS: Nystatin Powder 15gm Bottle 1 APPLIC TOPICAL ×2 (05:06→14:00)
[2024-07-11 05:32] VITALS: BMI 20.2
[2024-07-11] MEDS: Lactobacillis Acidophilus 1 CAP PO ×2 (06:20→14:01)
[2024-07-11 06:55] LABS: Absolute Neutrophil Count 6.5 X10^3/uL (2.0-7.7); Basophil# 0.05 X10^3/uL; Basophil% 0.6 % (0-1); Eosinophil# 0.09 X10^3/uL; Hematocrit 36.7 % (37-47); Hemoglobin 11.4 g/dL (12.0-15.0); Lymphocyte % 17.3 % (19-41); Mean Corp Hgb Conc 31.1 g/dL (32-36); Mean Corpuscular Hgb 26.8 pg (27.0-32.0); Mean Corpuscular Volume 86.2 fL (81-99); Mean Platelet Vol. 9.7 fl (6.2-12.0); Monocyte# 0.51 X10^3/uL; Monocyte% 5.9 % (0-10); NRBC Flagged by Analyzer 0 % (0-5); Neutrophil # 6.48 X10^3/uL (2.7-7.7); Neutrophil % 74.7 % (47-70); Platelet Count 177 K/mm3 (150-450); RBC Distribution Width CV 15.9 % (11.6-14.6); RBC Distribution Width SD 49.3 fl (35.1-43.9); Red Blood Count 4.26 M/mm3 (4.2-5.4); White Blood Count 8.7 K/mm3 (4.4-11.0)
[2024-07-11 07:13] LABS: Anion Gap 4 (5-15); BUN 10 mg/dL (7-18); Calcium,Total 8.2 mg/dL (8.5-10.1); Chloride 113 mmol/L (98-107); Creatinine, Serum 0.32 mg/dL (0.55-1.02); EST Glomerular Filtration Rate 237 mL/min (>60); Est Glom Filt Rate - Afr Amer 287 mL/min (>60); Estimated Creatinine Clearance 251.27 ml/min; Glucose 94 mg/dL (74-106); Potassium 3.5 mmol/L (3.5-5.1); Sodium Level 141 mmol/L (136-145)
[2024-07-11 09:27] VITALS: BP 130/80; PULSE 77; RESP 18; TEMP 36.6; O2SAT 100
[2024-07-11] MEDS: Gabapentin 800 MG Tablet PO ×2 (09:37→14:00)
[2024-07-11] MEDS: Ferrous Sulfate 325 MG Tablet PO (09:38)
[2024-07-11] MEDS: DULoxetine Hcl 60 MG Capsule 120 MG PO (09:39)
[2024-07-11] MEDS: Ascorbic Acid 500 MG Tablet PO (09:39)
[2024-07-11] MEDS: Meloxicam 15 MG Tablet PO (09:40)
[2024-07-11] MEDS: Baclofen 10 MG Tablet 20 MG PO ×2 (09:40→14:00)
[2024-07-11] MEDS: Tolterodine Tartrate 2 MG CAP.SA PO (09:40)
[2024-07-11] MEDS: Cilostazol 50 MG Tablet PO (09:42)
[2024-07-11] MEDS: Enoxaparin 40 MG/0.4 ML Syringe SC (09:42)
--- NOTE | 2024-07-11 09:42 | CASEMGMT ---
Social Work Phone call placed to [facility] who confirms pt has services through the [place] [facility]. Pt receives 35 hours/week of aid services through [facility] and 7 Home delivered meals per week through [employer]. Pt's hospice case manager is Anastasiya Reynoso. TEODORO updated DH of pt's admission and will fax dc orders when appropriate. BERNARD Salazar
--- NOTE | 2024-07-11 11:18 | CASEMGMT ---
Addendum entered by Vianey Wilson 07/11/24 12:12: [facility], [facility], [facility], [facility], [facility], and [facility] have declined. left for intake at [facility]. Vianey Wilson DC Planning Asst. Original Note: Discharge Planning HH referral sent via [facility] to [facility], [facility] [place], [facility], [facility], [facility], [facility], [facility], and [facility]. Vianey Wilson DC Planning Asst.
--- NOTE | 2024-07-11 11:19 | CASEMGMT ---
Addendum entered by Reji Maddox 07/11/24 14:19: [facility] able to accept pt. This was added to pt's discharge plan. Pt made aware and voices appreciation. DC orders are in. Vianey, dc assistant associate full professor, aware and to send DC info to [facility] via [facility]. Pt states will contact her 3RD PRESSMAN to inquire if she can come pick her up to take her home. Pt instructed to inform RN if her 3RD PRESSMAN is not available, so SW can assist w/transportation home. Original Note: ANTONIETTA CRAMRE NOTE: ANTONIETTA CRAMER informed that pt is requesting to discharge home today. No discharge order in as of yet. ANTONIETTA CM to room. Pt confirms she is wanting to go home today. She would like [facility] for therapy (wants PT only) and agreeable to SN for wound care. She does have a teachable caregiver (either her aide or niece) for wound care and states if possible, she would like C through [facility], since this is where her aides are through. She was made aware [facility] does not have skilled therapy services. She declines needing/wanting list of other options to review, stating she does know about any of the others and is agreeable to a blanket referral to anyone in-network w/her insurance. Order placed for HHC, SN and PT. Vianey, discharge assistant associate full professor, made aware. Yumiko NGUYEN RN, CM
--- NOTE | 2024-07-11 14:10 | DS.PCM_ITS ---
Providers Date of Admission: 07/09/24 Date of Discharge: 07/11/24 Primary Care Physician: Dr. Qamar Zimmer MD Consultations 07/09/24 23:46 Consult: Infectious Disease Routine Consulting Provider: Pradeep Ferrell Reason for Consult: Complicated UTI, ? coccxy acute on chronic infection EMERGENT Consult: No Notified: Yes Date Notified: 07/10/24 Time Notified: 06:32 Method of Notification: Answering Service Consult: Wardrobe Specialist / Pulmonary Medicine Routine Consulting Provider: Intensivists/Pulmonary Med Reason for Consult: Complicated UTI, ? acutely infected coccyx stage II ulcer, hypotension EMERGENT Consult: No Notified: Yes Date Notified: 07/10/24 Time Notified: 01:46 Method of Notification: Verbal Consult: Onc/Wound/district sales representative Routine Comment: Reason for Consult:: stage II pressure ulcer coccyx Reason For Visit: UTI INDWELLING CATHETER CHRONIC COCCYX WOUND Diagnosis Discharge Diagnosis (1) Decubitus ulcer of sacral region, stage 2: Status: Acute Code(s): L89.152 - Pressure ulcer of sacral region, stage 2 (2) Complicated urinary tract infection: Status: Acute Code(s): N39.0 - Urinary tract infection, site not specified Plan #Sepsis due to complicated UTI and infected Stage II sacral decubitus ulcer * on IV vancomycin and cefepime * wound and blood culturs ordered * ID on board. Critical care on board. * hydrate gently with iVF * wbc is down to 11.4 from 14 on admission. * #Infected sacral decubitus ulcers * hs a wound over her coccyx. Currently on IV vancomycina dn cefepime * wound care on board. * #History of spinal abscess with resulting paraplegia * has chronic neurogenic bladder and has a chronic suprapubic catheter in situ * PT/OT on board. * #Chronic hypotension * on florinef. Also on midodrine. * #History of polysubstance abuse with hepatitis C * counseled to quit. * counseled to follow up with gastroenterology on outpatient basis. 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 Stable DVT prophylaxis: lovenox Medications at Discharge Home Medications baclofen 20 mg tablet 30 mg PO 4X/DAY muscle spasm 10/19/19 duloxetine 60 mg capsule,delayed release 120 mg PO DAILY depression 10/19/19 oxybutynin chloride 10 mg tablet,extended release 24 hr 10 mg PO DAILY bladder 12/24/19 clonazepam 0.5 mg tablet 0.5 mg PO TID PRN Anxiety #9 tabs 07/05/20 cilostazol 50 mg tablet 50 mg PO BID antiplatelet 08/15/22 meloxicam 15 mg tablet 15 mg PO DAILY spasms 08/15/22 ferrous sulfate 325 mg (65 mg iron) tablet (FeroSul) 325 mg PO QODAY 03/27/24 magnesium 250 mg tablet 250 mg PO DAILY 03/27/24 gabapentin 800 mg tablet 800 mg PO 4X/DAY 03/31/24 nystatin 100,000 unit/gram topical cream 1 applic topical PRN PRN skin irritation 03/31/24 nystatin 100,000 unit/gram topical powder (Nyamyc) 1 applic topical TID 03/31/24 sodium chloride 0.9 % irrigation solution 1 irrig irrigation UD 03/31/24 terbinafine HCl 1 % topical cream 1 applic topical BID 03/31/24 ascorbate calcium (vitamin C) 500 mg tablet 500 mg PO BID #60 tabs 04/01/24 ciprofloxacin HCl 500 mg tablet 500 mg PO BID #10 tabs 07/11/24 doxycycline hyclate 100 mg tablet 100 mg PO BID #10 tabs 07/11/24 Hospital Course Operations None Procedures None Summary of Care Provided Minutes Spent on Discharge: 47 Hospital Course: Patient is a 43 y/o female with an extensive PMH as outlined including 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 She had a known sacral decubitus ulcer. Xray of the sacral decubitus ulcer showed no fracture or destruction and presacral soft tissue structure was unremarkable. Urinalysis showed evidence of UTI with 1+ bacteria and leukocyte esterase. Chest x-ray showed no acute cardiopulmonary process. She was admitted and managed for sepsis due to complicated UTI and infected stage II sacral decubitus ulcer. She was initially started on IV vancomycin and cefepime. ID was consulted. Wound and blood cultures were ordered. She was hydrated with IV fluids. WBC trended down with IV antibiotics. ID was also consulted. Wound cultures grew Staph aureus and gram- negative rods lactose residence life director. Urine cultures grew Enterobacter cloacae and potentially with Augusto. Blood cultures were pending at time of discharge. ID reviewed patient and recommended she could be discharged home on 07/11/2024 on p.o. ciprofloxacin 500 mg twice daily and p.o. doxycycline 100 mg twice daily both for 5-day course. She is to follow-up with her primary care doctor within 1 to 2 weeks. Patient seen and examined prior to discharge. She had no complaints and had an uneventful night. Review of systems otherwise negative. Labs and vitals reviewed. Home medication reviewed and reconciled. Physical Exam Const alert, oriented x3 and no apparent distress General Appearance: cooperative and comfortable Orientation / Consciousness: awake Exam Limitations: no limitations HEENT normocephalic, head/scalp atraumatic, hearing grossly normal bilaterally, TM's normal bilaterally and moist oral mucous membranes Mouth: oral and palatal mucosa normal Eyes PERRL, EOMs intact bilaterally and conjunctivae normal Neck no lymphadenopathy and supple Lymph Lymphatic: no lymphadenopathy noted Resp normal respiratory effort, normal air movement, no retractions, no use of accessory muscles and clear to auscultation bilaterally Cardio regular rate, regular rhythm, S1 normal heart sound and no murmurs GI normal to inspection, nondistended, normoactive bowel sounds, soft to palpation and non-tender Extremity normal capillary refill, no clubbing, cyanosis or edema and no calf tenderness Skin Skin Narrative: intact dressing over sacrum Neuro CN's II-XII intact bilaterally Neuro Narrative: chronic paraplegia Sensorium / Orientation: awake and alert Motor Exam: general weakness Psych thought process normal and cooperative Appearance: appropriate Weight / BMI Weight Weight: 153 lb 3.54 oz Body Mass Index (BMI) 20.2 ABG / Lab / Microbiology Data 07/11/24 06:42 07/11/24 06:42 Laboratory: Laboratory Results - last 24 hr 07/10/24 23:17: Vancomycin Trough 10.9 07/11/24 06:42: WBC 8.7, RBC 4.26, Hgb 11.4 L, Hct 36.7 L, MCV 86.2, MCH 26.8 L, MCHC 31.1 L, RDW Std Deviation 49.3 H, RDW Coeff of Domonique 15.9 H, Plt Count 177, MPV 9.7, Immature Gran % (Auto) 0.500, Neut % (Auto) 74.7 H, Lymph % (Auto) 17.3 L, Talbot % (Auto) 5.9, Eos % (Auto) 1.0, Baso % (Auto) 0.6, Absolute Neuts (auto) 6.5, Absolute Lymphs (auto) 1.50, Nucleated RBC % 0, Sodium 141, Potassium 3.5, Chloride 113 H, Carbon Dioxide 24.0, Anion Gap 4 L, BUN 10, Creatinine 0.32 L, Estim Creat Clear Calc 251.27, Est GFR (MDRD) Af Amer 287, Est GFR (MDRD) Non-Af 237, BUN/Creatinine Ratio 31.0 H, Glucose 94, Calcium 8.2 L Microbiology: Microbiology 07/10/24 10:01 Wound - Sacral Gram Stain - Final 07/10/24 10:01 Wound - Sacral Wound Culture - Preliminary Staphylococcus aureus GNR lactose residence life director 07/09/24 19:14 Urine Catheter - Catheter Urine Culture - Final Enterobacter cloacae complex Providencia rettgeri D/C Instructions Discharge Diet: Low fat / Low cholesterol Discharge Activity: Return to Normal Activity Weight Bearing Status: Weight bearing as tolerated Call your doctor if you observe: Fever of 101 or Higher, Shortness of breath, Dizziness, Swelling in the ankles and Chest pain Meaningful Use Info Meaningful Use Meaningful Use Diagnoses (Choose all that apply): None applicable Ischemic Stroke Statin Dosing Therapy Reference: STATIN DOSE THERAPY REFERENCE: * Patients > 75 years receive moderate or high dose statin therapy. * Patients 75 years or YOUNGER should receive HIGH intensity statin dose unless contraindicated. You will be required to document reason for non-treatment if statin daily dose does not meet guidelines. HIGH DOSE STATIN THERAPY DAILY Atorvastatin > than or = to 40 mg Rosuvastatin > than or = to 20 mg Amlodipine + Atorvastatin > than or = to 2.5/40 mg Ezetimibe + Simvastatin 10/80 mg Simvastatin 80mg Discharge Plan Admission Admit Date/Time: 07/09/24 22:55 Primary Reason for Your Visit: UTI Attending Provider: Domi Torres Primary Care Provider: Qamar Zimmer Consulting Providers: Donovan Rangel; Jaiden Vigil; Kanu Rogers; Armando Coffman; Yadiel Hernadez; Akil Henderson; Mitzi Sauer; Darrell Abarca; Tiago Johnson; Tosha Sylvester; Supriya Villavicencio; Enrique Garnett; Chidi Myles; Irwin Rodriguez; Usama Portillo; Roger Dao; Sly Clifton; Pradeep Ferrell; Ethel De Los Santos Instructions Patient Instructions: ED Cystitis Female Adult Discharge Orders/Prescriptions Prescriptions: New ciprofloxacin HCl 500 mg tablet 500 mg PO BID Qty: 10 0RF doxycycline hyclate 100 mg tablet 100 mg PO BID Qty: 10 0RF Continued baclofen 20 MG tablet 30 mg PO 4X/DAY duloxetine 60 MG capsule,delayed release(DR/EC) 120 mg PO DAILY oxybutynin chloride 10 MG tablet extended release 24hr 10 mg PO DAILY clonazepam 0.5 MG tablet 0.5 mg PO TID PRN (Reason: Anxiety) Qty: 9 0RF cilostazol 50 mg tablet 50 mg PO BID meloxicam 15 mg tablet 15 mg PO DAILY ferrous sulfate [FeroSul] 325 mg (65 mg iron) tablet 325 mg PO QODAY magnesium 250 mg tablet 250 mg PO DAILY gabapentin 800 mg tablet 800 mg PO 4X/DAY nystatin 100,000 unit/gram cream 1 applic topical PRN PRN (Reason: skin irritation) sodium chloride 0.9 % solution 1 irrig irrigation UD nystatin [Nyamyc] 100,000 unit/gram powder 1 applic topical TID terbinafine HCl 1 % cream 1 applic topical BID Rx Instructions: USE FOR 14 DAYS OR UNTIL RESOLVED ascorbate calcium (vitamin C) 500 mg tablet 500 mg PO BID Qty: 60 2RF Rx Instructions: take with methenamine for uti prevention Referrals / Follow Up: Qamar Zimmer MD [Primary Care Provider] - Within 1 Week Disposition Disposition (needs filled in before D/C Order can be placed): Home Health Service Charges/Coding Visit Charges Inpatient E&M: 77129 Disch Hosp >30min
--- NOTE | 2024-07-11 14:33 | PCM.PN.ID ---
Physical Exam Narrative Feeling better, discharge planned, no fever Const alert and no apparent distress Resp normal air movement and clear to auscultation bilaterally Cardio regular rate and regular rhythm GI soft to palpation, non-tender and non-distended Skin Skin Narrative: no new rash ID ID: Route of nutrition/ use of supplements: [] Nutritional Intake: [] IV Site: [] Charles Catheter: [] Assessment & Plan Assessment/Plan (1) Decubitus ulcer of sacral region, stage 2: (2) Complicated urinary tract infection: PLAN: transient hypotension, no fever, no lactic acidosis. Mild wbc rise. Not clear if she meets sepsis criteria. Wound cx with staph aureus and GNR. Ucx with enterobacter and providencia. Ok to send out with 5 days po doxy and cipro. Will follow, d/w primary
--- NOTE | 2024-07-11 14:49 | CASEMGMT ---
Discharge Planning DC instructions sent via [facility] to [facility]. Vianey Wilson, CALVIN Planning Asst.
--- NOTE | 2024-07-11 16:07 | CASEMGMT ---
Social Work DC orders faxed to pt Keeper Helper Anastasiya Reynoso at [facility]. BERNARD Salazar
== END 2024-07-11 15:30 | disposition home health service (06) | DRG 466 ==
LOC: ED 17:55 → ICU 07-10 03:38
PROVIDERS: Admitting Provider Family Medicine; Emergency Provider Emergency Medicine; PCP Family Medicine; Visit Provider Student in an Organized Health Care Education/Training Program
DX: T83.511A Infection and inflammatory reaction due to indwelling urethral catheter, initial encounter (principal); G82.20 Paraplegia, unspecified; L89.152 Pressure ulcer of sacral region, stage 2; D50.9 Iron deficiency anemia, unspecified; B19.20 Unspecified viral hepatitis C without hepatic coma; F17.200 Nicotine dependence, unspecified, uncomplicated; I95.89 Other hypotension; F41.8 Other specified anxiety disorders; N39.0 Urinary tract infection, site not specified; Z79.02 Long term (current) use of antithrombotics/antiplatelets; N31.9 Neuromuscular dysfunction of bladder, unspecified; Z79.899 Other long term (current) drug therapy; Z22.322 Carrier or suspected carrier of Methicillin resistant Staphylococcus aureus
CPT/HCPCS: 36415; 71045; 72220; 80048; 80053; 80202; 80307; 81001; 83605; 83735; 84100; 84145; 85025; 85610; 85730; 86140; 87040; 87070; 87077; 87086; 87088; 87186; 87205; 93005; 94668; 94762; 97162; 99252; 99285; 99406; J7030; J7050; A4216; G0463

== ENCOUNTER 2024-08-08 20:10 | Inpatient (IN) | payer MEDICAID, SELFPAY ==
[2024-08-08 20:11] VITALS: BP 96/67; PULSE 84; RESP 18; TEMP 37.5; O2SAT 98; BMI 21.0
--- NOTE | 2024-08-08 21:28 | CT_ITS ---
EXAM: CT ABDOMEN AND PELVIS WITH INTRAVENOUS CONTRAST CLINICAL INDICATION: Cellulitis/abscess sacral region TECHNIQUE: Helically acquired images were obtained of the abdomen and pelvis with intravenous contrast. This CT exam was performed using one or more of the following dose reduction techniques: automated exposure control, adjustment of the mA and/or kV according to patient size, and/or use of iterative reconstruction technique. CONTRAST: IV 75mL [id number] COMPARISON: Chest radiograph on the same date. CTA chest, 03/27/2024. CT abdomen and pelvis, 12/20/2023. FINDINGS: LOWER THORAX: No significant abnormality. Lung bases are clear. No cardiomegaly. No significant pericardial effusion. ABDOMEN: LIVER: No significant abnormality. Homogeneous. No focal mass. GALLBLADDER AND BILE DUCTS: No significant abnormality. No calcified gallstones. No gallbladder distention or wall edema. No intra- or extrahepatic biliary ductal dilation. PANCREAS: No significant abnormality. No focal cystic or solid mass. SPLEEN: Splenomegaly. ADRENALS: No significant abnormality. No nodules. KIDNEYS AND URETERS: No significant abnormality. Normal renal size and position. No hydronephrosis. STOMACH AND BOWEL: Moderate to large amount of colorectal stool retention. No stomach or bowel distention. No focal inflammatory change. PELVIS: APPENDIX: No evidence of acute appendicitis. BLADDER: Suprapubic urinary catheter. REPRODUCTIVE: Normal as visualized. No mass. ABDOMEN and PELVIS: INTRAPERITONEAL SPACE: No significant abnormality. No ascites or other fluid collection. No free air. BONES/JOINTS: Bilateral hip joint effusions. Intramedullary fixation of the right femur is partially visualized. Degenerative changes in the spine. The degree of endplate eburnation at L4-5 and L5-S1 is similar to the prior CT examination suggesting that this is likely a degenerative process although an indolent and/or partially treated infection cannot be excluded. Chronic right anterior inferior iliac spine avulsion fractures similar to the prior examination. SOFT TISSUES: High-grade sacrococcygeal decubitus ulcer with dissecting air in the subcutaneous adipose extending to the cortex. Surrounding inflammatory edema and skin thickening consistent with cellulitis. VASCULATURE: No significant abnormality. Abdominal aorta is non-dilated. LYMPH NODES: No significant abnormality. No enlarged lymph nodes. CT/Abdomen/Pelvis W IV Cont ONLY IMPRESSION: 1. High-grade sacrococcygeal decubitus ulcer with dissecting air in the subcutaneous adipose extending to the cortex. Surrounding inflammatory edema and skin thickening consistent with cellulitis. 2. Moderate to large amount of colorectal stool retention. 3. Splenomegaly. 4. Degenerative changes in the spine. The degree of endplate eburnation at L4-5 and L5-S1 is similar to the prior CT examination suggesting that this is likely a degenerative process although an indolent and/or partially treated infection cannot be excluded. Electronically Signed: Singh Yeh DO at 23:41 EDT ,
--- NOTE | 2024-08-08 21:29 | EKG12_ITS ---
Test Reason : DYSRHYTHMIA Blood Pressure : / mmHG Vent. Rate : 108 BPM Atrial Rate : 108 BPM P-R Int : 132 ms QRS Dur : 108 ms QT Int : 342 ms P-R-T Axes : 065 106 054 degrees QTc Int : 458 ms Sinus tachycardia Rightward axis Incomplete right bundle branch block Borderline ECG Confirmed by Nicolas Todd ([id number]), associate entertainment editor CORRINE DUNCAN ([id number]) on 08/11/2024 12:09:53 PM Referred By: Confirmed By:Nicolas Todd
--- NOTE | 2024-08-08 21:29 | RAD_ITS ---
EXAM: XR CHEST, 1 VIEW CLINICAL INDICATION: Dyspnea TECHNIQUE: Frontal view of the chest. COMPARISON: 07/09/2024. FINDINGS: LUNGS AND PLEURAL SPACES: No significant abnormality. No consolidation or edema. No pneumothorax. No effusion. HEART: No significant abnormality. Cardiac silhouette not enlarged. MEDIASTINUM: Central airways and mediastinal contour are unremarkable. BONES/JOINTS: Postoperative changes in the spine. Multiple chronic rib fractures. SOFT TISSUES: No significant abnormality. RAD/Chest 1 View (Portable) IMPRESSION: No acute findings in the chest. Electronically Signed: Singh Yeh DO at 23:37 EDT ,
--- NOTE | 2024-08-08 21:31 | EDS_ITS ---
HPI History of Present Illness Chief Complaint: Wound Detail of Chief Complaint: Patient presents because of concern for infection sacral area. She states Informant: patient Onset/Context/Timing Onset: Today (Wound opened. She has been ill for the past couple of days with subjective fever) Context: Sudden Onset Timing: Continuous Quality: Sacral coccyx sore with infection Current Severity: Moderate Maximum Severity: Moderate Worsened by: Patient is paraplegic Relieved by: Nothing Associated Symptoms Associated Symptoms: Subjective fever with chills and drainage from wound. Narrative Narrative: Patient is a 43-year-old female. She was admitted July 09 to discharge July 11. She was diagnosed with decubitus ulcer of sacral region stage II, complicated urinary tract infection with resulting sepsis. There also was concern for the sacral decubitus ulcer to be infected over the coccyx region. Patient was started on vancomycin and cefepime. 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 She does have chronic hypotension. There is also history of hepatitis C due to polysubstance abuse. She presents because the aide was concerned the wound looked bad. She has visiting nurse come out only once a week now. She has not been on antibiotics for 2 to 3 weeks. She denies headache, visual, ocular auditory symptoms. She denies cardiac or respiratory symptoms. She denies urologic symptoms and she has a suprapubic catheter in place. Prior similar symptoms: Yes Recent Illness/Hospitalization: [facility] Medical History Decubitus ulcer of sacral region, stage 2 Sacral wound Ovarian cyst Hepatitis C Kidney stones Chronic indwelling Charles catheter DVT (deep venous thrombosis) Paraplegia Spinal abscess Neurogenic bladder Anxiety and depression Chronic hypotension History of intravenous drug abuse Esophageal reflux Home Medications ?Medication ?Instructions ?Recorded ?Last Taken ?Type baclofen 20 mg tablet 20 mg PO 4X/DAY muscle spasm 10/19/19 03/31/24 History duloxetine 60 mg capsule,delayed 120 mg PO DAILY depression 10/19/19 03/31/24 History release oxybutynin chloride 10 mg 10 mg PO DAILY bladder 12/24/19 03/31/24 History tablet,extended release 24 hr clonazepam 0.5 mg tablet 0.5 mg PO TID PRN Anxiety #9 tabs 07/05/20 05/20/23 Rx cilostazol 50 mg tablet 50 mg PO BID antiplatelet 08/15/22 03/31/24 History meloxicam 15 mg tablet 15 mg PO DAILY spasms 08/15/22 05/20/23 History ferrous sulfate 325 mg (65 mg 325 mg PO QODAY 03/27/24 03/30/24 History iron) tablet (FeroSul) gabapentin 800 mg tablet 800 mg PO 4X/DAY 03/31/24 03/31/24 History nystatin 100,000 unit/gram topical 1 applic topical PRN PRN skin 03/31/24 Unknown History cream irritation sodium chloride 0.9 % irrigation 1 irrig irrigation UD 03/31/24 03/31/24 History solution ascorbate calcium (vitamin C) 500 500 mg PO QODAY 08/08/24 Unknown History mg tablet Allergy/AdvReac Type Severity Reaction Status Date / Time Penicillins AdvReac PT UNSURE Verified 08/08/24 20:10 OF REACTION Family History Mother Multiple sclerosis Surgical History History of surgery on lower extremity S/P debridement History of suprapubic catheter Hx of spinal surgery Social History household members: none Smoking Status: Light Smoker (<10/day) alcohol intake: current Alcohol type: other substance use type: former substance user Date of last use: Prior history of IV drug abuse with heroin and methamphetamine. ROS ROS ED Constitutional Constitutional ED: Reports chills, fever(s), subjective and sweats; Denies w eight loss Eyes Eyes: Denies blurry vision or change in vision ENT ENT ED: Denies ear pain or rhinorrhea Cardiovascular Cardiovascular: Denies chest pain, orthopnea, palpitations or racing heartbeat Respiratory/Chest Respiratory/Chest: Denies cough, dyspnea, dyspnea on exertion or orthopnea Gastrointestinal Gastrointestinal: Denies abdominal pain, nausea or vomiting Genitourinary Genitourinary ED: Reports other Details: Suprapubic catheter Musculoskeletal Musculoskeletal: Reports back pain; Denies arthralgias Integumentary Reports abscess and rash Neurologic Neurologic: Denies headache(s) Hematologic/Lymphatic Hematologic/Lymphatic: Reports systems reviewed and no addt'l complaints, except as documented EXAM Physical Exam Const Vital Signs: 08/08/24 20:11 08/08/24 21:47 08/08/24 21:48 Temperature 99.5 F H 99.5 F H Temperature Source Oral Oral Pulse Rate 84 106 H Respiratory Rate 18 19 H Blood Pressure 96/67 87/59 L Blood Pressure Mean 76 68 Pulse Ox 98 99 Oxygen Delivery Method Room Air Room Air Room Air 08/08/24 22:10 Temperature Temperature Source Pulse Rate 102 H Respiratory Rate 16 Blood Pressure 91/52 L Blood Pressure Mean 65 Pulse Ox 96 Oxygen Delivery Method Room Air Positive well nourished and well developed Constitutional Narrative: Patient feels much warmer than documented temperature. She is tachycardic with a heart rate of 113 on the monitor. She has a narrow complex rhythm noted on the monitor. General Appearance ED: well developed, NAD and pallor HEENT Reports dry mucous membranes HEENT Narrative: Head is atraumatic, cephalic. Ears normal. Nares patent. Mouth ED: Yes dry mucous membranes Mouth: dry mucous membranes Eyes PERRL and EOMs intact bilaterally General Eye ED: Negative for pale conjunctiva or scleral icterus Neck no lymphadenopathy, supple and no JVD Neck Narrative: Right of midline patient has a scar due to prior infection. Chest Wall inspection of chest normal and palpation of chest normal Resp normal respiratory effort and clear to auscultation bilaterally Cardio regular rhythm, S1 normal heart sound, S2 normal heart sound and no murmurs Rate: tachycardic GI normal to inspection, nondistended, normoactive bowel sounds, non-tender, non- distended and no masses; Negative for hepatosplenomegaly GI Narrative: Patient noted to have a suprapubic catheter in place. Back/Spine Back/Spine Narrative: The lumbar sacral area has pressure sores noted stage II. There is surrounding cellulitis. There is a stage III pressure sore noted over the coccyx region. There is cellulitis that spreads from the lumbar to the coccyx region involving both right and left buttocks. There is question of fluctuance superior aspect where there is a pressure sore. Extremity Negative for normal to inspection General Extremety ED: Yes edema General Extremity: edema Neuro oriented x3, CN's II-XII intact bilaterally and No no sensory deficits noted Sensorium / Orientation: alert Motor Exam: Negative for strength 5/5 throughout Psych Mood & Affect: depressed Skin No no rashes or lesions noted and No no wounds General Skin Exam: pallor; Negative for jaundice Sepsis Attestation Sepsis Alert: Yes Date exam was performed: 08/08/24 Time exam was performed: 21:31 Possible Source of Sepsis: Skin/soft tissue MDM MDM MDM Narrative Medical decision making narrative: This patient complained of fever, is tachycardic and has drainage that has odor from her sacral coccyx region concern patient is septic. Sepsis order set was initiated and sepsis treatment for skin infection. Because of history of staph infection she was treated with vancomycin in addition to the Ancef. CT of the pelvis was obtained to determine if there is any abscess that would require drainage and if there is any bone involvement. Patient will require admission to the hospital. She was made aware of this. She was medicated with morphine for her pain. History & Record Review Additional record(s) reviewed:: Prior inpatient record (Records from most recent admission were reviewed and noted in the HPI narrative.), Prior ED visit and Prior labs Lab Data Attestation: I reviewed the patient's lab results. Lab results narrative: Urine reveals 0-5 RBCs 10-25 WBCs and reportedly 10-25 squamous epithelial cells which is unusual since she has a suprapubic catheter in place. There is 2+ bacteria noted. White count is elevated 23,000 with shift. There is no bandemia. There is evidence of anemia with normal indices. Since urine is infected based on prior culture and sensitivity cefepime was administered in addition to the Ancef and vancomycin that was already ordered. Lactate is normal. Labs: Laboratory Results - last 24 hr 08/08/24 08/08/24 21:40 22:26 WBC 23.0 H RBC 4.21 Hgb 11.8 L Hct 35.4 L MCV 84.1 MCH 28.0 MCHC 33.3 RDW Std Deviation 43.5 RDW Coeff of Domonique 14.3 Plt Count 262 MPV 10.1 Immature Gran % (Auto) 0.800 Neut % (Auto) 82.5 H Lymph % (Auto) 10.5 L [place] % (Auto) 5.6 Eos % (Auto) 0.3 Baso % (Auto) 0.3 Absolute Neuts (auto) 19.0 H Absolute Lymphs (auto) 2.42 Nucleated RBC % 0 PT 14.3 INR 1.1 APTT 29.7 Sodium 136 Potassium 3.2 L Chloride 101 Carbon Dioxide 29.0 Anion Gap 6 BUN 8 Creatinine 0.37 L Estim Creat Clear Calc 226.70 Est GFR (MDRD) Af Amer 244 Est GFR (MDRD) Non-Af 202 BUN/Creatinine Ratio 21.6 H Glucose 92 Lactic Acid 0.9 Calcium 8.4 L Total Bilirubin 0.40 AST 7 L ALT 10 L Alkaline Phosphatase 101 Total Protein 6.4 Albumin 2.5 L Globulin 3.9 Albumin/Globulin Ratio 0.6 L Urine Color Yellow Urine Clarity Cloudy Urine pH 7.0 Ur Specific [place] 1.010 Urine Protein 30 H Urine Glucose (UA) Normal Urine Ketones 5 H Urine Occult Blood 150 H Urine Nitrite Positive H Urine Bilirubin 1 H Urine Urobilinogen 1 H Ur Leukocyte Esterase 500 H Urine RBC 0-5 SEEN Urine WBC 10-25 SEEN Ur Squamous Epith Cells 10-25 SEEN Urine Bacteria 2+ Urine Mucus 0 SEEN Radiography Chest X-Ray - ED: 1 View and Read by ED Physician (Hyperaeration with clear lungs. Prior right and left rib fracture. [place] is normal. Cardiac silhouette and size normal.) Diagnostic Testing: Clinical Impression(s) from Imaging Studies Abdomen/Pelvis CT 08/08/24 21:28 IMPRESSION: 1. High-grade sacrococcygeal decubitus ulcer with dissecting air in the subcutaneous adipose extending to the cortex. Surrounding inflammatory edema and skin thickening consistent with cellulitis. 2. Moderate to large amount of colorectal stool retention. 3. Splenomegaly. 4. Degenerative changes in the spine. The degree of endplate eburnation at L4-5 and L5-S1 is similar to the prior CT examination suggesting that this is likely a degenerative process although an indolent and/or partially treated infection cannot be excluded. Electronically Signed: Singh Yeh DO at 23:41 EDT , Chest X-Ray 08/08/24 21:29 IMPRESSION: No acute findings in the chest. Electronically Signed: Singh Yeh DO at 23:37 EDT , EKG Initial EKG: Attestation: I personally reviewed and interpreted this EKG as follows: Interpretation: Sinus Tachycardia (Sinus tachycardia rate of 108. [place] to the right. Incomplete right bundle branch block noted. MI interval is 132 ms. Cures duration 108 ms. QT duration 342 ms. There is no acute ischemic changes. There is artifact noted.) Management Discussion w/another healthcare provider: Hospitalist (Hospitalist asked if Dr. Gillis was on this weekend. I called him. He is leaving town. Per my review of the CAT scan there is evidence of cellulitis. There is no abscess. Awaiting formal read.) Treatment and Re-Evaluation :: Dr. Thomas reviewed her films. She thought this was more extensive than she felt comfortable dealing with. Patient was asked where she preferred to be transferred to. She would like to go [facility] Where she had had her original surgery, epidural abscess. Comments:: Spoke with the transfer nurse at [facility]. She will contact the hospitalist for admission to medical service with consult to surgery. She informing the patient is on a wait list. She will not be transferred until tomorrow at the earliest. Discharge Plan Triage Chief Complaint: Wound ED Provider: Ignacio Michael Dx/Rx/DC Orders Clinical Impression: Sepsis without acute organ dysfunction, Cellulitis of sacral region, Sacral decubitus ulcer, stage III, Sinus tachycardia seen on monitoring manager, Complicated urinary tract infection, Chronic paraplegia Prescriptions: No Action baclofen 20 MG tablet 20 mg PO 4X/DAY duloxetine 60 MG capsule,delayed release(DR/EC) 120 mg PO DAILY oxybutynin chloride 10 MG tablet extended release 24hr 10 mg PO DAILY clonazepam 0.5 MG tablet 0.5 mg PO TID PRN (Reason: Anxiety) Qty: 9 0RF cilostazol 50 mg tablet 50 mg PO BID meloxicam 15 mg tablet 15 mg PO DAILY ascorbate calcium (vitamin C) 500 mg tablet 500 mg PO QODAY Rx Instructions: take with methenamine for uti prevention ferrous sulfate [FeroSul] 325 mg (65 mg iron) tablet 325 mg PO QODAY gabapentin 800 mg tablet 800 mg PO 4X/DAY nystatin 100,000 unit/gram cream 1 applic topical PRN PRN (Reason: skin irritation) sodium chloride 0.9 % solution 1 irrig irrigation UD Primary Care Provider: Qamar Zimmer Referrals: Qamar Zimmer MD [Primary Care Provider] - Print Language: Ecuadorean Disposition Disposition: Acute Care Hospital Discharge Location: [facility]
[2024-08-08 21:43] LABS: Mucous, Urine 0 SEEN /hpf (<or=2+)
[2024-08-08 21:47] VITALS: BP 87/59; PULSE 106; RESP 19; TEMP 37.5; O2SAT 99
[2024-08-08 21:48] LABS: Color, Urine Yellow (Yellow); Glucose, Dipstick Normal (Normal); Ketone-Dipstick 5 mg/dl (Negative); Leukocyte Esterase-Dipstick 500 /ul (Negative); Nitrite-Dipstick Positive (Negative); Occult Blood-Urine 150 /ul (Negative); Protein-Dipstick 30 mg/dl (Negative); Urine Clarity Cloudy (Clear); Urine Urobilinogen 1 mg/dl (Normal)
[2024-08-08 21:56] LABS: Urine Bilirubin Dipstick 1 mg/dL (Negative)
[2024-08-08 21:59] LABS: Bacteria 2+ /hpf (None Seen)
[2024-08-08 22:01] LABS: Red Blood Cells-Urine 0-5 SEEN /hpf (0-5); Squamous Epithelial Cells - UA 10-25 SEEN /hpf (5-10); White Blood Cells 10-25 SEEN /hpf (0-5)
[2024-08-08 22:10] VITALS: BP 91/52; PULSE 102; RESP 16; O2SAT 96
[2024-08-08] MEDS: Ondansetron 4 MG/2 ML Vial IV (22:29)
[2024-08-08] MEDS: Morphine 4 MG/ML Syringe IV (22:29)
[2024-08-08] MEDS: 0.9% Normal Saline (1000mL) 1,000 ML 999 ML IV (22:30)
[2024-08-08 22:36] LABS: Absolute Lymphocyte Count 2.42 X10^3/uL (0.83-4.51); Basophil# 0.06 X10^3/uL; Basophil% 0.3 % (0-1); Eosinophil# 0.07 X10^3/uL; Eosinophils% 0.3 % (0-5); Hematocrit 35.4 % (37-47); Hemoglobin 11.8 g/dL (12.0-15.0); Lymphocyte # 2.42 X10^3/ul (0.83-4.51); Lymphocyte % 10.5 % (19-41); Mean Corp Hgb Conc 33.3 g/dL (32-36); Mean Corpuscular Volume 84.1 fL (81-99); Mean Platelet Vol. 10.1 fl (6.2-12.0); Monocyte% 5.6 % (0-10); NRBC Flagged by Analyzer 0 % (0-5); Neutrophil # 18.98 X10^3/uL (2.7-7.7); Neutrophil % 82.5 % (47-70); Platelet Count 262 K/mm3 (150-450); RBC Distribution Width CV 14.3 % (11.6-14.6); RBC Distribution Width SD 43.5 fl (35.1-43.9); Red Blood Count 4.21 M/mm3 (4.2-5.4)
[2024-08-08 22:50] LABS: International Normalized Ratio 1.1; Partial Thromboplast Time 29.7 Seconds (24.1-36.2); Prothrombin Time (Protime)PT. 14.3 SECONDS (11.7-14.9)
[2024-08-08 22:55] LABS: ALB/GLOB Ratio 0.6 RATIO (0.9-2.4); AST(SGOT) 7 U/L (15-37); Alanine Aminotransfer ALT/SGPT 10 U/L (13-56); Albumin, Serum 2.5 g/dL (3.2-5.0); Alkaline Phosphatase 101 U/L (45-117); Anion Gap 6 (5-15); BUN 8 mg/dL (7-18); BUN/Creat Ratio 21.6 RATIO (10-20); Calcium,Total 8.4 mg/dL (8.5-10.1); Chloride 101 mmol/L (98-107); Creatinine, Serum 0.37 mg/dL (0.55-1.02); EST Glomerular Filtration Rate 202 mL/min (>60); Est Glom Filt Rate - Afr Amer 244 mL/min (>60); Globulin 3.9 g/dL (2.2-4.2); Glucose 92 mg/dL (74-106); Potassium 3.2 mmol/L (3.5-5.1); Protein, Total 6.4 g/dL (6.4-8.2); Sodium Level 136 mmol/L (136-145)
[2024-08-08 22:58] LABS: Lactic Acid 0.9 mmol/L (0.4-1.9)
[2024-08-08] MEDS: Cefazolin 2 GM in 0.9% Normal Saline (100mL Bag) 100 ML IV (23:18)
--- NOTE | 2024-08-08 23:51 | HP.PCM.HOS_ITS ---
HPI - General General Date of Admission: 08/08/24 Date of Service: 08/08/24 Chief Complaint: Fever, headache, increased drainage from sacral wound, increased pain x 1 week. HPI Narrative The patient is a 43 y/o F w/ PMHx: Anxiety and Depression, Hx IVDA/Polysubstance abuse w/ resulting Hepatitis C, Hx VTE, Chronic paraplegia secondary to previous spinal abscess at the level of C4-C5 with some ability to move her upper extremities/lift her hips but limited otherwise with chronic sacral wound and neurogenic bladder with chronic indwelling snowden catheter, Chronic hypotension, GERD, Tobacco use, Hx c-difficile colitis, Frequent complicated UTIs, recent discharge 07/11/24 secondary to sepsis secondary to complicated UTI and infected stage II decubitus sacral ulcer treated inpatient with IV vancomycin and cefepime with wound culture with Staph aureus and gram-negative rods with urine culture with Enterobacter and prevention discharged out on 5 days of additional oral doxycycline and ciprofloxacin who now represents to the [facility] ED on 08/08/24 with history of worsening wound to the sacrum with ongoing fever for the last week not on any antibiotic therapy with foul odor from the wound as well as surrounding wound erythema prompting eventual ED evaluation to be cautious. She noted also increased output from the wound although initially she though that this was potentially bowel movements. She also notes ongoing intermittent throbbing diffuse headache for the last week. Workup in the ED included T99.5, heart rate 84, BP 96/67, respiratory rate 18, 98% on room air with most recent repeat vitals Tmax 102.3, heart rate 107, BP 90/60, respiratory rate 22, 94% on room air, CBC with WBC 23, hemoglobin 0.8, MCV 84.1, platelet 262 with significant left shift, unremarkable coags, CMP with potassium 3.2, BUN/creat 8/0.37, lactic acid 0.9, hepatic profile not marked appearing, urinalysis noted be cloudy, protein 30, ketone 5, occult blood 150, nitrate positive, leukocyte esterase 500 with urine WBCs 10-25 although oddly enough urine squamous epithelial cells also noted 10-25 with 2+ urine bacteria, chest x-ray with no acute cardiopulmonary findings, CT abdomen pelvis with IV contrast with high- grade sacrococcygeal decubitus ulcer with dissecting air in the subcutaneous adipose extending to the cortex with surrounding inflammation, edema and skin thickening consistent with cellulitis, moderate to large amount of colorectal stool retention, splenomegaly, degenerative changes in the spine, degree of endplate eburnation at L4-5 and L5-S1 is similar to prior CT suggestive of likely degenerative process, urine culture and blood cultures pending per ED. In the ED patient ministered 1 L normal saline, Tylenol 1000 mg p.o. x 1, Zofran 4 mg IV x 1, morphine 4 mg IV x 1 as well as cefazolin 2 g IV x 1 and vancomycin 1750 mg IV x 1. ED physician discussed case with plastic surgery who is unfortunately not available and general surgery did not feel comfortable with the extent of debridement that would be necessary therefore transfer was initiated to [facility] where the patient was accepted however there are unfortunately no beds available for potentially next 24 hours prompting request for temporary admission to [facility] until bed at tertiary facility is available. [facility] Medical History Decubitus ulcer of sacral region, stage 2 Sacral wound Ovarian cyst Hepatitis C Kidney stones Chronic indwelling Snowden catheter DVT (deep venous thrombosis) Paraplegia Spinal abscess Neurogenic bladder Anxiety and depression Chronic hypotension History of intravenous drug abuse Esophageal reflux Home Medications ?Medication ?Instructions ?Recorded ?Last Taken ?Type baclofen 20 mg tablet 20 mg PO 4X/DAY muscle spasm 10/19/19 03/31/24 History duloxetine 60 mg capsule,delayed 120 mg PO DAILY depression 10/19/19 03/31/24 History release oxybutynin chloride 10 mg 10 mg PO DAILY bladder 12/24/19 03/31/24 History tablet,extended release 24 hr clonazepam 0.5 mg tablet 0.5 mg PO TID PRN Anxiety #9 tabs 07/05/20 05/20/23 Rx cilostazol 50 mg tablet 50 mg PO BID antiplatelet 08/15/22 03/31/24 History meloxicam 15 mg tablet 15 mg PO DAILY spasms 08/15/22 05/20/23 History ferrous sulfate 325 mg (65 mg 325 mg PO QODAY 03/27/24 03/30/24 History iron) tablet (FeroSul) gabapentin 800 mg tablet 800 mg PO 4X/DAY 03/31/24 03/31/24 History nystatin 100,000 unit/gram topical 1 applic topical PRN PRN skin 03/31/24 Unknown History cream irritation sodium chloride 0.9 % irrigation 1 irrig irrigation UD 03/31/24 03/31/24 History solution ascorbate calcium (vitamin C) 500 500 mg PO QODAY 08/08/24 Unknown History mg tablet Allergy/AdvReac Type Severity Reaction Status Date / Time Penicillins AdvReac PT UNSURE Verified 08/08/24 20:10 OF REACTION Family History Mother Multiple sclerosis other (Patient does not know any of her paternal family history.) Surgical History History of surgery on lower extremity S/P debridement History of suprapubic catheter Hx of spinal surgery Social History household members: none Smoking Status: Light Smoker (<10/day) alcohol intake: current Alcohol type: other substance use type: former substance user Date of last use: Prior history of IV drug abuse with heroin and methamphetamine. ROS ROS Narrative Admission Review of Systems: CONSTITUTIONAL: No weight loss, + fever, chills, weakness or fatigue. HEENT: +Headache. Eyes: No visual loss, blurred vision, double vision or yellow sclerae. Ears, Nose, Throat: No hearing loss, sneezing, congestion, runny nose or sore throat. SKIN: No rash or itching, lesions except + various abrasions, scars especially lower extremities status post previous debridement, sacral/coccyx worsened appearing w/ now stage III although suspect stage IV as undermined decubitus ulcer with periwound erythema. CARDIOVASCULAR: No chest pain, chest pressure or chest discomfort, palpitations, edema, orthopnea, syncopal events. RESPIRATORY: No shortness of breath, cough or sputum, wheezing, hemoptysis. GASTROINTESTINAL: + Anorexia. No nausea, vomiting, diarrhea, abdominal pain, melena, BRBPR. GENITOURINARY: + Cloudy and foul smelling urine, neurogenic bladder with chronic indwelling suprapubic catheter. No dysuria, frequency, urgency. NEUROLOGICAL: + Chronic paraplegia with ability to use upper extremities, able to lift hips but distal lower extremities minimally functional, spasticity chronically, sensation altered distally, headache. No dizziness, syncope, paralysis, ataxia, numbness or tingling in the extremities, focal weakness, change in bowel or bladder control, seizure. MUSCULOSKELETAL: + muscle, back pain, joint pain or stiffness. HEMATOLOGIC: + Chronic anemia. No bleeding or bruising. LYMPHATICS: No enlarged nodes. No history of splenectomy. PSYCHIATRIC: + History of anxiety and depression. ENDOCRINOLOGIC: No reports of sweating, cold or heat intolerance. No polyuria or polydipsia. ALLERGIES: No history of asthma, hives, eczema or rhinitis. Vital Signs Vital Signs Vital Signs: 08/08/24 20:11 08/08/24 21:47 08/08/24 21:48 Temperature 99.5 F H 99.5 F H Temperature Source Oral Oral Pulse Rate 84 106 H Respiratory Rate 18 19 H Blood Pressure 96/67 87/59 L Blood Pressure Mean 76 68 Pulse Ox 98 99 Oxygen Delivery Method Room Air Room Air Room Air 08/08/24 22:10 Temperature Temperature Source Pulse Rate 102 H Respiratory Rate 16 Blood Pressure 91/52 L Blood Pressure Mean 65 Pulse Ox 96 Oxygen Delivery Method Room Air Weight Weight: 159 lb 13.362 oz Body Mass Index (BMI) 21.0 Physical Exam Narrative Physical Examination: General: Awake, alert, oriented x 3 and cooperative, laying in the ED bed, fatigued and ill appearing, foul odor immediately evident upon entering the room. Skin: Normal color, normal turgor, no icterus, no cyanosis except for abrasions, significant worsened appearance of the sacral/coccyx region with now at least stage III although suspected stage IV as undermines with necrotic diffuse appearing tissue, purulent drainage and periwound erythema. HEENT: AT/NC, EOMI, PERRLA, mildly dry MM, no carotid bruits or JVD noted. Lungs: Mildly diminished, greater bases, appropriate effort, no rales, ronchi or wheezing. Heart: Mildly tachycardic with regular rhythm; no gallop, rub audible. Abdomen: Soft, NTTP, ND, mildly hyperactive BS, no HSM, suprapubic catheter in place. Extremities: No cyanosis, clubbing, mild bilateral ankle not markedly pitting edema, see skin. Neurological: Patient awake, alert, oriented as noted, cognitive function intact; pupils equally reactive to light and accommodation, cranial nerves grossly normal, paraplegia following cervical spinal abscess status post intervention with ability to move upper extremities, decreased sensation distally, chronic spasms, contractures noted, strength severely global decrease secondary to acute presentation and underlying comorbidities. Psychiatric: Affect appears fatigued, ill-appearing, no acute evidence of depressive or anxiety feelings but does have underlying history. Results Lab / Micro Data 08/08/24 22:26 08/08/24 22:26 Labs: Laboratory Results - last 24 hr 08/08/24 21:40: Urine Color Yellow, Urine Clarity Cloudy, Urine pH 7.0, Ur Specific [place] 1.010, Urine Protein 30 H, Urine Glucose (UA) Normal, Urine Ketones 5 H, Urine Occult Blood 150 H, Urine Nitrite Positive H, Urine Bilirubin 1 H, Urine Urobilinogen 1 H, Ur Leukocyte Esterase 500 H, Urine RBC 0-5 SEEN, Urine WBC 10-25 SEEN, Ur Squamous Epith Cells 10-25 SEEN, Urine Bacteria 2+, Urine Mucus 0 SEEN 08/08/24 22:26: WBC 23.0 H, RBC 4.21, Hgb 11.8 L, Hct 35.4 L, MCV 84.1, MCH 28.0, MCHC 33.3, RDW Std Deviation 43.5, RDW Coeff of Domonique 14.3, Plt Count 262, MPV 10.1, Immature Gran % (Auto) 0.800, Neut % (Auto) 82.5 H, Lymph % (Auto) 10.5 L, [place] % (Auto) 5.6, Eos % (Auto) 0.3, Baso % (Auto) 0.3, Absolute Neuts (auto) 19.0 H, Absolute Lymphs (auto) 2.42, Nucleated RBC % 0, PT 14.3, INR 1.1, APTT 29.7, Sodium 136, Potassium 3.2 L, Chloride 101, Carbon Dioxide 29.0, Anion Gap 6, BUN 8, Creatinine 0.37 L, Estim Creat Clear Calc 226.70, Est GFR (MDRD) Af Amer 244, Est GFR (MDRD) Non-Af 202, BUN/Creatinine Ratio 21.6 H, Glucose 92, Lactic Acid 0.9, Calcium 8.4 L, Total Bilirubin 0.40, AST 7 L, ALT 10 L, Alkaline Phosphatase 101, Total Protein 6.4, Albumin 2.5 L, Globulin 3.9, A lbumin/Globulin Ratio 0.6 L Imaging Radiology Impression Abdomen/Pelvis CT 08/08/24 21:28 IMPRESSION: 1. High-grade sacrococcygeal decubitus ulcer with dissecting air in the subcutaneous adipose extending to the cortex. Surrounding inflammatory edema and skin thickening consistent with cellulitis. 2. Moderate to large amount of colorectal stool retention. 3. Splenomegaly. 4. Degenerative changes in the spine. The degree of endplate eburnation at L4-5 and L5-S1 is similar to the prior CT examination suggesting that this is likely a degenerative process although an indolent and/or partially treated infection cannot be excluded. Electronically Signed: Singh VMelissa Yeh DO at 23:41 EDT , Chest X-Ray 08/08/24 21:29 IMPRESSION: No acute findings in the chest. Electronically Signed: Singhjose Yeh DO at 23:37 EDT , Assessment & Plan Assessment/Plan (1) Complicated urinary tract infection: (2) Sacral decubitus ulcer, stage III: PLAN: Plan The patient is a 43 y/o F w/ PMHx: Anxiety and Depression, Hx IVDA/Polysubstance abuse w/ resulting Hepatitis C, Hx VTE, Chronic paraplegia secondary to previous spinal abscess at the level of C4-C5 with some ability to move her upper extremities/lift her hips but limited otherwise with chronic sacral wound and neurogenic bladder with chronic indwelling snowden catheter, Chronic hypotension, GERD, Tobacco use, Hx c-difficile colitis, Frequent complicated UTIs, recent discharge 07/11/24 secondary to sepsis secondary to complicated UTI and infected stage II decubitus sacral ulcer treated inpatient with IV vancomycin and cefepime with wound culture with Staph aureus and gram-negative rods with urine culture with Enterobacter and prevention discharged out on 5 days of additional oral doxycycline and ciprofloxacin who now represents to the [facility] ED on 08/08/24 with history of worsening wound to the sacrum with ongoing fever for the last week not on any antibiotic therapy with foul odor from the wound as well as surrounding wound erythema prompting eventual ED evaluation to be cautious. #1. Acutely Infected Worsening now stage III-IV (suspect undermined) pressure wound over the coccyx with periwound erythema concerning for acute cellulitis, possibly osteomyelitis (reported as Septic per ED physician as patient has leukocytosis, tachycardia and source with SBP < 90; however, she is chronically hypotensive, stable BP compared to her baseline, thus no obvious end organ damage, thus unable to state clearly that she has sepsis): Will admit to PCU given concurrent chronic hypotension, will maintain on judicious IV fluids, will obtain Wound Cx/Wound MRSA assessment, will initiate on cefepime and IV vancomycin based on most recent admission cultures w/ ID consultation if transition to [facility] is prolonged and de-escalation/change per their discretion, offload, wound RN consulted. #2. Possible Complicated Urinary Tract Infection secondary to chronic indwelling suprapubic catheter versus chronic colonization: UA upon ED evaluation remarkable, pending UCx, continue judicious IVFs, monitor I/Os, continue IV vancomycin and cefepime based on previous cultures with noted most recent enterococcal infection w/ transition as able pending sensitivities and speciation. Infectious disease consulted. #3. History of spinal abscess with resulting paraplegia, chronic decubitus ulcers/wounds requiring previous debridement, chronic neurogenic bladder with chronic suprapubic catheter: As long as BP tolerates will continue home Klonopin and gabapentin regimen, continue offloading, frequent positional changes, barrier cream, PT/OT/CM consultation for discharge planning. Verifying last snowden catheter change date as frequent UTI history. #4. Chronic anemia/iron deficiency anemia, currently normocytic, previously microcytic: Admission hemoglobin [], MCV [], baseline appears more recently - 12, will continue to closely monitor and repeat CBC in the AM, encourage continued outpatient follow-up as has previously been administered IV Fe. #5. Chronic hypotension: Patient with chronic hypotension/orthostasis, will maintain on Florinef and midodrine. #6. History of polysubstance abuse, history of IV drug abuse with Hepatitis C: Encourage continued outpatient follow-up with infectious disease, encourage continued clean status, UDS pending upon admission. #7. Anxiety and depression: We will continue patient home Cymbalta and Klonopin regimen and continue to encourage outpatient follow-up/counseling as previously arranged. #8. History of VTE: Not chronically anticoagulated, will maintain on chemoprophylaxis as noted #9. Tobacco Abuse: Encouraged cessation, inpatient consultation per RT, NR if desired. #10. History of Clostridium C. difficile colitis: Given antibiotic usage will maintain on lactobacillus regimen. #11. DVT prophylaxis: Lovenox. #12. CODE status: Patient does not have healthcare power of deputy prosecuting attorney or living will set up and is uncertain who she would have is her medical decision-maker. Full Code status. Charges/Coding Visit Charges Inpatient E&M: 11078 Init Hosp L3
[2024-08-09] VITALS (8 sets, daily range): BP systolic 94–129; BP diastolic 60–77; PULSE 79–114; RESP 16–22; TEMP 36.6–39.1; O2SAT 94–98; BMI 20.8; BMI 21.0
[2024-08-09] MEDS: Vancomycin HCl 1,750 MG in 0.9% Normal Saline (500mL Bag) 500 ML 250 MG IV (00:15)
[2024-08-09] MEDS: Acetaminophen 500 MG Tablet 1000 MG PO (00:15)
[2024-08-09 00:30] LABS: Magnesium 1.7 mg/dL (1.6-2.6); Phosphorus 3.2 mg/dL (2.5-4.9)
[2024-08-09 00:39] LABS: Amphetamine Urine VISTA NEGATIVE (<1000 ng/mL); Barbiturate Urine VISTA NEGATIVE (< 200 ng/mL); Benzodiazepine Urine VISTA NEGATIVE (< 200 ng/mL); Cocaine Urine VISTA NEGATIVE (< 300 ng/mL); Ecstacy Urine VISTA NEGATIVE (< 500 ng/mL); Methadone Urine VISTA NEGATIVE (< 300 ng/mL); PCP Urine VISTA NEGATIVE (< 25 ng/mL); THC Urine VISTA POSITIVE (< 50 ng/mL); Vista UDS pH Range 5
--- NOTE | 2024-08-09 01:40 | PCM.RX.CS ---
Consult Antibiotic Management Pharmacy has been consulted to manage selected antibiotic: Vancomycin Type of Intervention Type of Consult: New start Labs Labs: Sodium 136 mmol/L (136-145) 08/08/24 22:26 Potassium 3.2 mmol/L (3.5-5.1) L 08/08/24 22:26 Chloride 101 mmol/L (98-107) 08/08/24 22:26 Carbon Dioxide 29.0 mmol/L (21.0-32.0) 08/08/24 22:26 Anion Gap 6 (5-15) 08/08/24 22:26 BUN 8 mg/dL (7-18) 08/08/24 22:26 Creatinine 0.37 mg/dL (0.55-1.02) L 08/08/24 22:26 Est GFR (MDRD) Af Amer 244 mL/min (>60) 08/08/24 22:26 Est GFR (MDRD) Non-Af 202 mL/min (>60) 08/08/24 22:26 BUN/Creatinine Ratio 21.6 RATIO (10-20) H 08/08/24 22:26 Glucose 92 mg/dL (74-106) 08/08/24 22:26 Dosing Weight Weight used for dosin.5 kg Estimated Creatinine Clearance Estimated Creatinine Clearance: 226 Goal Trough Goal Trough: 15-20 mcg/mL Pharmacy Plan for Drug Dosing Pharmacy Plan for Drug Dosing: Pharmacy Service will continue to monitor and adjust dosing as required. 1750MG IN ER, 1000MG Q8H TROUGH PRIOR TO 4TH DOSE Follow-Up Labs Follow-Up Labs: Trough: Vancomycin Date/Time Labs Ordered Labs to be done on [date and time ordered]: 08/10 @ 0000
[2024-08-09] MEDS: clonazePAM 0.5 MG Tablet PO (01:46)
[2024-08-09] MEDS: fentaNYL 100 MCG/2 ML Ampul 25 MCG IV ×4 (01:46→23:37)
[2024-08-09] MEDS: Potassium Chloride Oral Tablet 20 MEQ 40 MEQ PO (01:46)
[2024-08-09] MEDS: Lactobacillis Acidophilus 1 CAP PO ×3 (01:47→21:40)
[2024-08-09] MEDS: Baclofen 10 MG Tablet 20 MG PO ×4 (01:48→21:40)
[2024-08-09] MEDS: NORMAL SALINE 0.9% IV ×4 (02:58→21:54)
[2024-08-09] MEDS: CEFEPIME HCL IV ×4 (02:58→21:54)
[2024-08-09] MEDS: 0.9% Normal Saline (1000mL) 1,000 ML 999 ML IV (03:02)
[2024-08-09] MEDS: 0.9% Normal Saline (1000mL) 1,000 ML 125 ML IV (04:38)
[2024-08-09] MEDS: oxyCODONE 5 MG Tablet PO ×3 (06:12→21:40)
[2024-08-09 06:52] LABS: Absolute Lymphocyte Count 1.63 X10^3/uL (0.83-4.51); Absolute Neutrophil Count 15.9 X10^3/uL (2.0-7.7); Basophil# 0.07 X10^3/uL; Basophil% 0.4 % (0-1); Eosinophil# 0.03 X10^3/uL; Eosinophils% 0.2 % (0-5); Hematocrit 34.8 % (37-47); Hemoglobin 11.2 g/dL (12.0-15.0); Lymphocyte # 1.63 X10^3/ul (0.83-4.51); Lymphocyte % 8.7 % (19-41); Mean Corp Hgb Conc 32.2 g/dL (32-36); Mean Corpuscular Hgb 27.9 pg (27.0-32.0); Mean Corpuscular Volume 86.6 fL (81-99); Mean Platelet Vol. 10.3 fl (6.2-12.0); Monocyte# 0.91 X10^3/uL; Monocyte% 4.9 % (0-10); NRBC Flagged by Analyzer 0 % (0-5); Neutrophil # 15.87 X10^3/uL (2.7-7.7); Neutrophil % 84.7 % (47-70); Platelet Count 251 K/mm3 (150-450); RBC Distribution Width CV 14.1 % (11.6-14.6); RBC Distribution Width SD 45.1 fl (35.1-43.9); Red Blood Count 4.02 M/mm3 (4.2-5.4); White Blood Count 18.7 K/mm3 (4.4-11.0)
[2024-08-09 07:21] LABS: ALB/GLOB Ratio 0.6 RATIO (0.9-2.4); AST(SGOT) 29 U/L (15-37); Alanine Aminotransfer ALT/SGPT 18 U/L (13-56); Albumin, Serum 2.2 g/dL (3.2-5.0); Alkaline Phosphatase 176 U/L (45-117); Anion Gap 3 (5-15); BUN 6 mg/dL (7-18); BUN/Creat Ratio 18.4 RATIO (10-20); Chloride 112 mmol/L (98-107); Creatinine, Serum 0.33 mg/dL (0.55-1.02); EST Glomerular Filtration Rate 235 mL/min (>60); Est Glom Filt Rate - Afr Amer 284 mL/min (>60); Estimated Creatinine Clearance 254.18 ml/min; Globulin 3.7 g/dL (2.2-4.2); Glucose 96 mg/dL (74-106); Potassium 3.5 mmol/L (3.5-5.1); Protein, Total 5.9 g/dL (6.4-8.2); Sodium Level 143 mmol/L (136-145)
[2024-08-09] MEDS: Enoxaparin 40 MG/0.4 ML Syringe SC (08:47)
[2024-08-09] MEDS: DULoxetine Hcl 60 MG Capsule 120 MG PO (08:48)
[2024-08-09] MEDS: Tolterodine Tartrate 2 MG CAP.SA PO (08:48)
[2024-08-09] MEDS: Vancomycin IV 1,000 MG/200 ML BAG 200 MG IV ×2 (08:48→16:41)
[2024-08-09] MEDS: Cilostazol 50 MG Tablet PO ×2 (08:48→21:40)
[2024-08-09] MEDS: Meloxicam 15 MG Tablet PO (08:48)
[2024-08-09] MEDS: Midodrine HCl 5 MG Tablet 10 MG PO ×2 (08:48→13:23)
[2024-08-09] MEDS: Fludrocortisone Acetate 0.1 MG Tablet 0.05 MG PO (08:48)
[2024-08-09] MEDS: Gabapentin 800 MG Tablet PO ×4 (08:59→21:54)
--- NOTE | 2024-08-09 10:17 | CASEMGMT ---
ANTONIETTA CRAMER Readmission Note Previous Admission: 07/09/24-07/11/24 Diagnosis:UTI, indwelling catheter, chronic sacral wound DC Disposition: Home with [facility] Current Admission: Admitted 08/08/24 Current Diagnosis: infected decubitus ulcer, complicated UTI Pt dc'd from index admission with [facility] for SN and PT. Pt is a paraplegia with a suprapubic catheter and sacral wound. Pt is paraplegic d/t spinal abscess. Pt dc'd on po cipro and doxycycline and follow up with PCP in 1 wk. Pt represented with increased drainage from wound, fever and SAGASTUME. D/T the unavailability of plastic surgery, plan is for pt to trf to [facility] as general surgery is not comfortable wtih pt d/t extent of debridement necessary. Currently [facility] has accepted pt but there are no beds. ANTONIETTA CRAMER into pt room. Pt states that [facility] is seeing pt and she thought she did not have to see her PCP d/t them being there. Instructed pt that the homecare does not take the place of her PCP but they work in conjunction with. Pt does have a virtual appt on Sunday with PCP but did not follow up within a week post previous hospitalization. Pt did take all of her antibiotics as ordered on dc. DC Plan: TRF To [facility].
--- NOTE | 2024-08-09 13:56 | PCM.PN.HOSP ---
Subjective Subjective Doing well, no issues overnight. Having little bit of pain around her decubitus ulcer Objective Data Objective Data Vital Signs: Vital Signs Temp Pulse Resp BP Pulse Ox O2 Del Method 97.9 F 79 16 100/69 98 Room Air 08/09/24 09:03 08/09/24 09:03 08/09/24 09:03 08/09/24 09:03 08/09/24 09:03 08/09/24 09:03 Oxygen Delivery Method Room Air Weight: 159 lb 13.362 oz Body Mass Index (BMI) 21.0 Intake & Output: Intake and Output for Last 24 Hours 08/08/24 08/09/24 08/10/24 03:59 03:59 03:59 Intake Total 1695 / 1695 2250 / 2250 Output Total 200 / 200 Balance 1695 / 1695 2049 / 2049 Lab / Micro Data 08/09/24 06:22 08/09/24 06:22 Labs: Laboratory Results - last 24 hr 08/08/24 21:40: Urine Color Yellow, Urine Clarity Cloudy, Urine pH 7.0, Ur Specific [place] 1.010, Urine Protein 30 H, Urine Glucose (UA) Normal, Urine Ketones 5 H, Urine Occult Blood 150 H, Urine Nitrite Positive H, Urine Bilirubin 1 H, Urine Urobilinogen 1 H, Ur Leukocyte Esterase 500 H, Urine RBC 0-5 SEEN, Urine WBC 10-25 SEEN, Ur Squamous Epith Cells 10-25 SEEN, Urine Bacteria 2+, Urine Mucus 0 SEEN, Urine Opiates Screen NEGATIVE, Urine Methadone Screen NEGATIVE, Ur Barbiturates Screen NEGATIVE, Ur Phencyclidine Scrn NEGATIVE, Ur Amphetamines Screen NEGATIVE, MDMA (Ecstasy) Screen NEGATIVE, U Benzodiazepines Scrn NEGATIVE, Urine Cocaine Screen NEGATIVE, U Cannabinoids Screen POSITIVE H, Ur Drug Screen Comment 08/08/24 22:26: WBC 23.0 H, RBC 4.21, Hgb 11.8 L, Hct 35.4 L, MCV 84.1, MCH 28.0, MCHC 33.3, RDW Std Deviation 43.5, RDW Coeff of Domonique 14.3, Plt Count 262, MPV 10.1, Immature Gran % (Auto) 0.800, Neut % (Auto) 82.5 H, Lymph % (Auto) 10.5 L, [place] % (Auto) 5.6, Eos % (Auto) 0.3, Baso % (Auto) 0.3, Absolute Neuts (auto) 19.0 H, Absolute Lymphs (auto) 2.42, Nucleated RBC % 0, PT 14.3, INR 1.1, APTT 29.7, Sodium 136, Potassium 3.2 L, Chloride 101, Carbon Dioxide 29.0, Anion Gap 6, BUN 8, Creatinine 0.37 L, Estim Creat Clear Calc 226.70, Est GFR (MDRD) Af Amer 244, Est GFR (MDRD) Non-Af 202, BUN/Creatinine Ratio 21.6 H, Glucose 92, Lactic Acid 0.9, Calcium 8.4 L, Phosphorus 3.2, Magnesium 1.7, Total Bilirubin 0.40, AST 7 L, ALT 10 L, Alkaline Phosphatase 101, Total Protein 6.4, Albumin 2.5 L, Globulin 3.9, Albumin/Globulin Ratio 0.6 L 08/09/24 06:22: WBC 18.7 H, RBC 4.02 L, Hgb 11.2 L, Hct 34.8 L, MCV 86.6, MCH 27.9, MCHC 32.2, RDW Std Deviation 45.1 H, RDW Coeff of Domonique 14.1, Plt Count 251, MPV 10.3, Immature Gran % (Auto) 1.100 H, Neut % (Auto) 84.7 H, Lymph % (Auto) 8.7 L, [place] % (Auto) 4.9, Eos % (Auto) 0.2, Baso % (Auto) 0.4, Absolute Neuts (auto) 15.9 H, Absolute Lymphs (auto) 1.63, Nucleated RBC % 0, Sodium 143, Potassium 3.5, Chloride 112 H, Carbon Dioxide 27.0, Anion Gap 3 L, BUN 6 L, Creatinine 0.33 L, Estim Creat Clear Calc 254.18, Est GFR (MDRD) Af Amer 284, Est GFR (MDRD) Non-Af 235, BUN/Creatinine Ratio 18.4, Glucose 96, Calcium 8.0 L, Total Bilirubin 0.50, AST 29, ALT 18, Alkaline Phosphatase 176 H, Total Protein 5.9 L, Albumin 2.2 L, Globulin 3.7, Albumin/Globulin Ratio 0.6 L Micro: Microbiology 08/08/24 21:40 Urine, Catheterized Urine Culture - Preliminary GNR lactose double end sewer 08/09/24 02:00 Wound - Sacral Skin and Soft Tissue MRSA/MSSA (PCR - Final Meth. resistant Staph. aureus Radiography Diagnostic Testing: Radiology Impression Abdomen/Pelvis CT 08/08/24 21:28 IMPRESSION: 1. High-grade sacrococcygeal decubitus ulcer with dissecting air in the subcutaneous adipose extending to the cortex. Surrounding inflammatory edema and skin thickening consistent with cellulitis. 2. Moderate to large amount of colorectal stool retention. 3. Splenomegaly. 4. Degenerative changes in the spine. The degree of endplate eburnation at L4-5 and L5-S1 is similar to the prior CT examination suggesting that this is likely a degenerative process although an indolent and/or partially treated infection cannot be excluded. Electronically Signed: Singh YehDO at 23:41 EDT , Chest X-Ray 08/08/24 21:29 IMPRESSION: No acute findings in the chest. Electronically Signed: Singh PatelDO herve at 23:37 EDT , Physical Exam Narrative General: Alert, Oriented x3, Cooperative, No apparent distress HEENT: Atraumatic, PERRLA, EOMI, Normocephalic Oral: Moist Mucosa Neck: Supple, No JVD Lungs: Clear to auscultation, Normal air movement, No rhonchi, No wheeze, No rales Cardiovascular: Regular rate, Regular Rhythm, Normal S1, Normal S2, No murmurs Abdomen: Soft, Non Tender, Non-Distended, No Hepato-splenomegaly Extremities: No edema, Capillary Refill Less than 3 Seconds Skin: Decubitus ulcers currently dressed Musculoskeletal: No Tenderness to Palpation of Joints or Extremities Neurological: Bilateral lower extremity paraplegia from a previous epidural abscess. Upper extremities 5 out of 5 bilaterally Psych/Mental Status: Normal Affect, Appropriate Assessment & Plan Assessment/Plan (1) Complicated urinary tract infection: (2) Sacral decubitus ulcer, stage III: PLAN: Plan #1. Acutely Infected Worsening now stage III-IV (suspect undermined) pressure wound over the coccyx with periwound erythema concerning for acute cellulitis, possibly osteomyelitis (reported as Septic per ED physician as patient has leukocytosis, tachycardia and source with SBP < 90; however, she is chronically hypotensive, stable BP compared to her baseline, thus no obvious end organ damage, thus unable to state clearly that she has sepsis): Will admit to PCU given concurrent chronic hypotension, will maintain on judicious IV fluids, will obtain Wound Cx/Wound MRSA assessment, will initiate on cefepime and IV vancomycin based on most recent admission cultures w/ ID consultation if transition to [facility] is prolonged and de-escalation/change per their discretion, offload, wound RN consulted. 08/09/2024: Awaiting transfer to [facility] #2. Possible Complicated Urinary Tract Infection secondary to chronic indwelling suprapubic catheter versus chronic colonization: UA upon ED evaluation remarkable, pending UCx, continue judicious IVFs, monitor I/Os, continue IV vancomycin and cefepime based on previous cultures with noted most recent enterococcal infection w/ transition as able pending sensitivities and speciation. Infectious disease consulted. #3. History of spinal abscess with resulting paraplegia, chronic decubitus ulcers/wounds requiring previous debridement, chronic neurogenic bladder with chronic suprapubic catheter: As long as BP tolerates will continue home Klonopin and gabapentin regimen, continue offloading, frequent positional changes, barrier cream, PT/OT/CM consultation for discharge planning. Verifying last snowden catheter change date as frequent UTI history. #4. Chronic anemia/iron deficiency anemia, currently normocytic, previously microcytic: Admission hemoglobin [], MCV [], baseline appears more recently 08-02, will continue to closely monitor and repeat CBC in the AM, encourage continued outpatient follow-up as has previously been administered IV Fe. #5. Chronic hypotension: Patient with chronic hypotension/orthostasis, will maintain on Florinef and midodrine. #6. History of polysubstance abuse, history of IV drug abuse with Hepatitis C: Encourage continued outpatient follow-up with infectious disease, encourage continued clean status, UDS pending upon admission. #7. Anxiety and depression: We will continue patient home Cymbalta and Klonopin regimen and continue to encourage outpatient follow-up/counseling as previously arranged. #8. History of VTE: Not chronically anticoagulated, will maintain on chemoprophylaxis as noted #9. Tobacco Abuse: Encouraged cessation, inpatient consultation per RT, NR if desired. #10. History of Clostridium C. difficile colitis: Given antibiotic usage will maintain on lactobacillus regimen. DVT: Lovenox
--- NOTE | 2024-08-09 13:58 | CASEMGMT ---
Social Work- SW met with pt to conduct SDOH assessment. Pt reports no needs or concerns in any area of SDOH assessment. Pt states its a pain because she can't drive to go get groceries or when she wants food, but states that all transportation needs are handled by family and friends and declines resources. Pt reports no other needs at this time. Pt reports that she believes that she is being transferred to [place] for surgery. BERNARD Kaminski
[2024-08-09] MEDS: 0.9% Saline Lock 10 ML Syringe IV (21:40)
[2024-08-09] MEDS: Acetaminophen 325 MG Tablet 650 MG PO (21:54)
[2024-08-10] VITALS (8 sets, daily range): BP systolic 96–109; BP diastolic 62–72; PULSE 70–91; RESP 16–18; TEMP 36.3–36.8; O2SAT 97–99
[2024-08-10 00:28] LABS: Vancomycin, Trough Level 14.2 ug/mL (5.0-15.0)
[2024-08-10] MEDS: Vancomycin IV 1,000 MG/200 ML BAG 200 MG IV ×3 (00:40→17:50)
--- NOTE | 2024-08-10 01:00 | PCM.RX.CS ---
Consult Antibiotic Management Pharmacy has been consulted to manage selected antibiotic: Vancomycin Type of Intervention Type of Consult: Follow-up Labs Labs: Sodium 143 mmol/L (136-145) 08/09/24 06:22 Potassium 3.5 mmol/L (3.5-5.1) 08/09/24 06:22 Chloride 112 mmol/L (98-107) H 08/09/24 06:22 Carbon Dioxide 27.0 mmol/L (21.0-32.0) 08/09/24 06:22 Anion Gap 3 (5-15) L 08/09/24 06:22 BUN 6 mg/dL (7-18) L 08/09/24 06:22 Creatinine 0.33 mg/dL (0.55-1.02) L 08/09/24 06:22 Est GFR (MDRD) Af Amer 284 mL/min (>60) 08/09/24 06:22 Est GFR (MDRD) Non-Af 235 mL/min (>60) 08/09/24 06:22 BUN/Creatinine Ratio 18.4 RATIO (10-20) 08/09/24 06:22 Glucose 96 mg/dL (74-106) 08/09/24 06:22 Vancomycin Trough 14.2 ug/mL (5.0-15.0) 08/10/24 00:00 Microbiology Microbiology: Microbiology 08/08/24 21:40 Urine, Catheterized Urine Culture - Preliminary GNR lactose security system analyst 08/09/24 02:00 Wound - Sacral Skin and Soft Tissue MRSA/MSSA (PCR - Final Meth. resistant Staph. aureus Goal Trough Goal Trough: 15-20 mcg/mL Pharmacy Plan for Drug Dosing Pharmacy Plan for Drug Dosing: Pharmacy Service will continue to monitor and adjust dosing as required. TROUGH 14.2 @ 8 HOURS. NO CHANGES, FOLLOW UP TROUGH IN 2 DAYS Follow-Up Labs Follow-Up Labs: Trough: Vancomycin Date/Time Labs Ordered Labs to be done on [date and time ordered]: 08/12 @ 0000
[2024-08-10] MEDS: oxyCODONE 5 MG Tablet PO ×3 (02:11→12:39)
[2024-08-10] MEDS: Lactobacillis Acidophilus 1 CAP PO ×3 (05:27→21:24)
[2024-08-10] MEDS: fentaNYL 100 MCG/2 ML Ampul 25 MCG IV ×3 (05:27→18:44)
[2024-08-10] MEDS: 0.9% Saline Lock 10 ML Syringe IV ×2 (05:27→18:45)
[2024-08-10] MEDS: CEFEPIME HCL IV ×3 (05:31→21:11)
[2024-08-10] MEDS: NORMAL SALINE 0.9% IV ×3 (05:31→21:11)
[2024-08-10 06:12] LABS: Absolute Lymphocyte Count 2.11 X10^3/uL (0.83-4.51); Absolute Neutrophil Count 13.2 X10^3/uL (2.0-7.7); Basophil# 0.07 X10^3/uL; Basophil% 0.4 % (0-1); Eosinophil# 0.12 X10^3/uL; Eosinophils% 0.7 % (0-5); Hematocrit 35.8 % (37-47); Hemoglobin 11.4 g/dL (12.0-15.0); Lymphocyte # 2.11 X10^3/ul (0.83-4.51); Lymphocyte % 12.5 % (19-41); Mean Corp Hgb Conc 31.8 g/dL (32-36); Mean Corpuscular Hgb 27.7 pg (27.0-32.0); Mean Corpuscular Volume 87.1 fL (81-99); Mean Platelet Vol. 10.6 fl (6.2-12.0); Monocyte# 1.07 X10^3/uL; Monocyte% 6.4 % (0-10); NRBC Flagged by Analyzer 0 % (0-5); Neutrophil # 13.24 X10^3/uL (2.7-7.7); Neutrophil % 78.7 % (47-70); Platelet Count 287 K/mm3 (150-450); RBC Distribution Width CV 14.6 % (11.6-14.6); RBC Distribution Width SD 46.5 fl (35.1-43.9); Red Blood Count 4.11 M/mm3 (4.2-5.4); White Blood Count 16.8 K/mm3 (4.4-11.0)
[2024-08-10 06:22] LABS: Anion Gap 3 (5-15); BUN 7 mg/dL (7-18); Calcium,Total 8.3 mg/dL (8.5-10.1); Chloride 111 mmol/L (98-107); Creatinine, Serum 0.39 mg/dL (0.55-1.02); EST Glomerular Filtration Rate 192 mL/min (>60); Est Glom Filt Rate - Afr Amer 232 mL/min (>60); Estimated Creatinine Clearance 215.07 ml/min; Glucose 129 mg/dL (74-106); Potassium 3.5 mmol/L (3.5-5.1); Sodium Level 140 mmol/L (136-145)
[2024-08-10] MEDS: Gabapentin 800 MG Tablet PO ×4 (08:32→21:25)
[2024-08-10] MEDS: Enoxaparin 40 MG/0.4 ML Syringe SC (08:32)
[2024-08-10] MEDS: Ferrous Sulfate 325 MG Tablet PO (08:36)
[2024-08-10] MEDS: Ascorbic Acid 500 MG Tablet PO (08:38)
[2024-08-10] MEDS: Meloxicam 15 MG Tablet PO (08:38)
[2024-08-10] MEDS: Baclofen 10 MG Tablet 20 MG PO ×4 (08:39→21:26)
[2024-08-10] MEDS: Tolterodine Tartrate 2 MG CAP.SA PO (08:39)
[2024-08-10] MEDS: DULoxetine Hcl 60 MG Capsule 120 MG PO (08:39)
[2024-08-10] MEDS: Cilostazol 50 MG Tablet PO ×2 (08:41→21:26)
[2024-08-10] MEDS: Ondansetron 4 MG/2 ML Vial IV (08:51)
--- NOTE | 2024-08-10 13:11 | PCM.PN.HOSP ---
Subjective Subjective Doing well, pain to low but improved today Objective Data Objective Data Vital Signs: Vital Signs Temp Pulse Resp BP Pulse Ox O2 Del Method 97.8 F 75 16 108/72 98 Room Air 08/10/24 11:41 08/10/24 12:00 08/10/24 11:41 08/10/24 11:41 08/10/24 11:41 08/10/24 11:41 Oxygen Delivery Method Room Air Weight: 159 lb 13.362 oz Body Mass Index (BMI) 21.0 Intake & Output: Intake and Output for Last 24 Hours 08/09/24 08/10/24 08/11/24 03:59 03:59 03:59 Intake Total 1695 / 1695 2750 / 2750 1210 / 1210 Output Total 550 / 550 1850 / 1850 Balance 1695 / 1695 2200 / 2200 -640 / -640 Lab / Micro Data 08/10/24 05:25 08/10/24 05:25 Labs: Laboratory Results - last 24 hr 08/10/24 00:00: Vancomycin Trough 14.2 08/10/24 05:25: WBC 16.8 H, RBC 4.11 L, Hgb 11.4 L, Hct 35.8 L, MCV 87.1, MCH 27.7, MCHC 31.8 L, RDW Std Deviation 46.5 H, RDW Coeff of Domonique 14.6, Plt Count 287, MPV 10.6, Immature Gran % (Auto) 1.300 H, Neut % (Auto) 78.7 H, Lymph % (Auto) 12.5 L, [place] % (Auto) 6.4, Eos % (Auto) 0.7, Baso % (Auto) 0.4, Absolute Neuts (auto) 13.2 H, Absolute Lymphs (auto) 2.11, Nucleated RBC % 0, Sodium 140, Potassium 3.5, Chloride 111 H, Carbon Dioxide 26.0, Anion Gap 3 L, BUN 7, Creatinine 0.39 L, Estim Creat Clear Calc 215.07, Est GFR (MDRD) Af Amer 232, Est GFR (MDRD) Non-Af 192, BUN/Creatinine Ratio 18.0, Glucose 129 H, Calcium 8.3 L Micro: Microbiology 08/09/24 02:00 Wound - Sacral Wound Culture - Preliminary Staphylococcus aureus GPC Poss Enterococcus sp 08/09/24 02:00 Wound - Sacral Skin and Soft Tissue MRSA/MSSA (PCR - Final Meth. resistant Staph. aureus 08/08/24 21:40 Urine, Catheterized Urine Culture - Final Enterobacter cloacae complex Physical Exam Narrative General: Alert, Oriented x3, Cooperative, No apparent distress HEENT: Atraumatic, PERRLA, EOMI, Normocephalic Oral: Moist Mucosa Neck: Supple, No JVD Lungs: Clear to auscultation, Normal air movement, No rhonchi, No wheeze, No rales Cardiovascular: Regular rate, Regular Rhythm, Normal S1, Normal S2, No murmurs Abdomen: Soft, Non Tender, Non-Distended, No Hepato-splenomegaly Extremities: No edema, Capillary Refill Less than 3 Seconds Skin: Decubitus ulcers currently dressed Musculoskeletal: No Tenderness to Palpation of Joints or Extremities Neurological: Bilateral lower extremity paraplegia from a previous epidural abscess. Upper extremities 5 out of 5 bilaterally Psych/Mental Status: Normal Affect, Appropriate Assessment & Plan Assessment/Plan (1) Complicated urinary tract infection: (2) Sacral decubitus ulcer, stage III: PLAN: Plan #1. Acutely Infected Worsening now stage III-IV (suspect undermined) pressure wound over the coccyx with periwound erythema concerning for acute cellulitis, possibly osteomyelitis (reported as Septic per ED physician as patient has leukocytosis, tachycardia and source with SBP < 90; however, she is chronically hypotensive, stable BP compared to her baseline, thus no obvious end organ damage, thus unable to state clearly that she has sepsis): Will admit to PCU given concurrent chronic hypotension, will maintain on judicious IV fluids, will obtain Wound Cx/Wound MRSA assessment, will initiate on cefepime and IV vancomycin based on most recent admission cultures w/ ID consultation if transition to [facility] is prolonged and de-escalation/change per their discretion, offload, wound RN consulted. 08/09/2024: Awaiting transfer to [facility] 08/10/2024: Awaiting transfer, continue with antibiotics, leukocytosis is improving. Cultures so far with MRSA as well as Enterococcus and her wounds and Enterobacter in her urine #2. Possible Complicated Urinary Tract Infection secondary to chronic indwelling suprapubic catheter versus chronic colonization: UA upon ED evaluation remarkable, pending UCx, continue judicious IVFs, monitor I/Os, continue IV vancomycin and cefepime based on previous cultures with noted most recent enterococcal infection w/ transition as able pending sensitivities and speciation. Infectious disease consulted. 08/10/2024: Enterobacter in her urine, sensitive to cefepime which she is already on #3. History of spinal abscess with resulting paraplegia, chronic decubitus ulcers/wounds requiring previous debridement, chronic neurogenic bladder with chronic suprapubic catheter: As long as BP tolerates will continue home Klonopin and gabapentin regimen, continue offloading, frequent positional changes, barrier cream, PT/OT/CM consultation for discharge planning. Verifying last snowden catheter change date as frequent UTI history. #4. Chronic anemia/iron deficiency anemia, currently normocytic, previously microcytic: Admission hemoglobin [], MCV [], baseline appears more recently 08-02, will continue to closely monitor and repeat CBC in the AM, encourage continued outpatient follow-up as has previously been administered IV Fe. #5. Chronic hypotension: Patient with chronic hypotension/orthostasis, will maintain on Florinef and midodrine. #6. History of polysubstance abuse, history of IV drug abuse with Hepatitis C: Encourage continued outpatient follow-up with infectious disease, encourage continued clean status, UDS pending upon admission. #7. Anxiety and depression: We will continue patient home Cymbalta and Klonopin regimen and continue to encourage outpatient follow-up/counseling as previously arranged. #8. History of VTE: Not chronically anticoagulated, will maintain on chemoprophylaxis as noted #9. Tobacco Abuse: Encouraged cessation, inpatient consultation per RT, NR if desired. #10. History of Clostridium C. difficile colitis: Given antibiotic usage will maintain on lactobacillus regimen. DVT: Lovenox Charges/Coding Visit Charges Inpatient E&M: 78664 Subs Hosp L2
[2024-08-10] MEDS: clonazePAM 0.5 MG Tablet PO (21:24)
[2024-08-10] MEDS: Acetaminophen 325 MG Tablet 650 MG PO (21:25)
[2024-08-10] MEDS: oxyCODONE 5 MG Tablet 10 MG PO (21:25)
[2024-08-11] MEDS: fentaNYL 100 MCG/2 ML Ampul 25 MCG IV ×3 (00:04→17:36)
[2024-08-11] MEDS: Vancomycin IV 1,000 MG/200 ML BAG 200 MG IV ×3 (00:05→17:16)
[2024-08-11 03:00] VITALS: BP 123/88; PULSE 81; RESP 18; TEMP 36; O2SAT 96
[2024-08-11] MEDS: oxyCODONE 5 MG Tablet 10 MG PO ×4 (03:34→22:15)
[2024-08-11] MEDS: Acetaminophen 325 MG Tablet 650 MG PO (03:35)
[2024-08-11] MEDS: NORMAL SALINE 0.9% IV ×3 (05:20→22:16)
[2024-08-11] MEDS: CEFEPIME HCL IV ×3 (05:20→22:16)
[2024-08-11] MEDS: Lactobacillis Acidophilus 1 CAP PO ×3 (05:26→22:15)
[2024-08-11 05:50] LABS: Absolute Lymphocyte Count 1.92 X10^3/uL (0.83-4.51); Absolute Neutrophil Count 6.6 X10^3/uL (2.0-7.7); Basophil# 0.06 X10^3/uL; Basophil% 0.6 % (0-1); Eosinophil# 0.17 X10^3/uL; Eosinophils% 1.8 % (0-5); Hematocrit 33.1 % (37-47); Hemoglobin 10.7 g/dL (12.0-15.0); Lymphocyte # 1.92 X10^3/ul (0.83-4.51); Lymphocyte % 20.1 % (19-41); Mean Corp Hgb Conc 32.3 g/dL (32-36); Mean Corpuscular Hgb 28.1 pg (27.0-32.0); Mean Corpuscular Volume 86.9 fL (81-99); Mean Platelet Vol. 9.9 fl (6.2-12.0); Monocyte# 0.73 X10^3/uL; Monocyte% 7.6 % (0-10); NRBC Flagged by Analyzer 0 % (0-5); Neutrophil # 6.59 X10^3/uL (2.7-7.7); Neutrophil % 69.1 % (47-70); Platelet Count 268 K/mm3 (150-450); RBC Distribution Width CV 14.4 % (11.6-14.6); RBC Distribution Width SD 46.1 fl (35.1-43.9); Red Blood Count 3.81 M/mm3 (4.2-5.4); White Blood Count 9.6 K/mm3 (4.4-11.0)
[2024-08-11 06:09] LABS: Magnesium 1.8 mg/dL (1.6-2.6)
[2024-08-11 06:11] LABS: Anion Gap 0 (5-15); BUN 6 mg/dL (7-18); BUN/Creat Ratio 19.5 RATIO (10-20); Chloride 109 mmol/L (98-107); Creatinine, Serum 0.31 mg/dL (0.55-1.02); EST Glomerular Filtration Rate 250 mL/min (>60); Est Glom Filt Rate - Afr Amer 303 mL/min (>60); Estimated Creatinine Clearance 267.81 ml/min; Glucose 90 mg/dL (74-106); Potassium 3.8 mmol/L (3.5-5.1); Sodium Level 142 mmol/L (136-145)
[2024-08-11] MEDS: 0.9% Saline Lock 10 ML Syringe IV ×3 (07:59→22:16)
[2024-08-11] MEDS: Ondansetron 4 MG/2 ML Vial IV (08:00)
--- NOTE | 2024-08-11 08:26 | NURSING ---
I spoke to [facility] transfer line they stated the pt is still on the wait list however they do not have a bed at this time.
[2024-08-11 09:00] VITALS: BP 116/51; PULSE 77; RESP 18; TEMP 36.3; O2SAT 98
[2024-08-11] MEDS: DULoxetine Hcl 60 MG Capsule 120 MG PO (09:03)
[2024-08-11] MEDS: Enoxaparin 40 MG/0.4 ML Syringe SC (09:04)
[2024-08-11] MEDS: Baclofen 10 MG Tablet 20 MG PO ×4 (09:04→22:15)
[2024-08-11] MEDS: Tolterodine Tartrate 2 MG CAP.SA PO (09:04)
[2024-08-11] MEDS: Meloxicam 15 MG Tablet PO (09:05)
[2024-08-11] MEDS: Gabapentin 800 MG Tablet PO ×4 (09:05→22:15)
[2024-08-11] MEDS: Cilostazol 50 MG Tablet PO ×2 (09:06→22:15)
--- NOTE | 2024-08-11 12:04 | PCM.PN.HOSP ---
Subjective Subjective Pain is improved with the increase in oxycodone Objective Data Objective Data Vital Signs: Vital Signs Temp Pulse Resp BP Pulse Ox O2 Del Method 97.3 F L 77 18 116/51 L 98 Room Air 08/11/24 09:00 08/11/24 09:00 08/11/24 09:00 08/11/24 09:00 08/11/24 09:00 08/11/24 09:00 Oxygen Delivery Method Room Air Weight: 159 lb 13.362 oz Body Mass Index (BMI) 21.0 Intake & Output: Intake and Output for Last 24 Hours 08/10/24 08/11/24 08/12/24 03:59 03:59 03:59 Intake Total 2750 / 2750 2190.0 / 2190.0 370 / 370 Output Total 550 / 550 2250 / 2250 2350 / 2350 Balance 2200 / 2200 -60.0 / -60.0 -1979 / -1979 Lab / Micro Data 08/11/24 05:37 08/11/24 05:37 Labs: Laboratory Results - last 24 hr 08/11/24 05:37: WBC 9.6, RBC 3.81 L, Hgb 10.7 L, Hct 33.1 L, MCV 86.9, MCH 28.1, MCHC 32.3, RDW Std Deviation 46.1 H, RDW Coeff of Domonique 14.4, Plt Count 268, MPV 9.9, Immature Gran % (Auto) 0.800, Neut % (Auto) 69.1, Lymph % (Auto) 20.1, [place] % (Auto) 7.6, Eos % (Auto) 1.8, Baso % (Auto) 0.6, Absolute Neuts (auto) 6.6, Absolute Lymphs (auto) 1.92, Nucleated RBC % 0, Sodium 142, Potassium 3.8, Chloride 109 H, Carbon Dioxide 32.0, Anion Gap 0 L, BUN 6 L, Creatinine 0.31 L, Estim Creat Clear Calc 267.81, Est GFR (MDRD) Af Amer 303, Est GFR (MDRD) Non-Af 250, BUN/Creatinine Ratio 19.5, Glucose 90, Calcium 8.0 L, Magnesium 1.8 Micro: Microbiology 08/09/24 02:00 Wound - Sacral Gram Stain - Final 08/09/24 02:00 Wound - Sacral Wound Culture - Final Meth. resistant Staph. aureus Enterococcus faecalis 08/09/24 02:00 Wound - Sacral Skin and Soft Tissue MRSA/MSSA (PCR - Final Meth. resistant Staph. aureus 08/08/24 21:40 Urine, Catheterized Urine Culture - Final Enterobacter cloacae complex Physical Exam Narrative General: Alert, Oriented x3, Cooperative, No apparent distress HEENT: Atraumatic, PERRLA, EOMI, Normocephalic Oral: Moist Mucosa Neck: Supple, No JVD Lungs: Clear to auscultation, Normal air movement, No rhonchi, No wheeze, No rales Cardiovascular: Regular rate, Regular Rhythm, Normal S1, Normal S2, No murmurs Abdomen: Soft, Non Tender, Non-Distended, No Hepato-splenomegaly Extremities: No edema, Capillary Refill Less than 3 Seconds Skin: Decubitus ulcers currently dressed Musculoskeletal: No Tenderness to Palpation of Joints or Extremities Neurological: Bilateral lower extremity paraplegia from a previous epidural abscess. Upper extremities 5 out of 5 bilaterally Psych/Mental Status: Normal Affect, Appropriate Assessment & Plan Assessment/Plan (1) Complicated urinary tract infection: (2) Sacral decubitus ulcer, stage III: PLAN: Plan #1. Acutely Infected Worsening now stage III-IV (suspect undermined) pressure wound over the coccyx with periwound erythema concerning for acute cellulitis, possibly osteomyelitis (reported as Septic per ED physician as patient has leukocytosis, tachycardia and source with SBP < 90; however, she is chronically hypotensive, stable BP compared to her baseline, thus no obvious end organ damage, thus unable to state clearly that she has sepsis): Will admit to PCU given concurrent chronic hypotension, will maintain on judicious IV fluids, will obtain Wound Cx/Wound MRSA assessment, will initiate on cefepime and IV vancomycin based on most recent admission cultures w/ ID consultation if transition to [facility] is prolonged and de-escalation/change per their discretion, offload, wound RN consulted. 08/09/2024: Awaiting transfer to [facility] 08/10/2024: Awaiting transfer, continue with antibiotics, leukocytosis is improving. Cultures so far with MRSA as well as Enterococcus and her wounds and Enterobacter in her urine 08/11/2024: Improvement in pain with the increase in oxycodone from her wound. Continue with local wound care #2. Possible Complicated Urinary Tract Infection secondary to chronic indwelling suprapubic catheter versus chronic colonization: UA upon ED evaluation remarkable, pending UCx, continue judicious IVFs, monitor I/Os, continue IV vancomycin and cefepime based on previous cultures with noted most recent enterococcal infection w/ transition as able pending sensitivities and speciation. Infectious disease consulted. 08/10/2024: Enterobacter in her urine, sensitive to cefepime which she is already on #3. History of spinal abscess with resulting paraplegia, chronic decubitus ulcers/wounds requiring previous debridement, chronic neurogenic bladder with chronic suprapubic catheter: As long as BP tolerates will continue home Klonopin and gabapentin regimen, continue offloading, frequent positional changes, barrier cream, PT/OT/CM consultation for discharge planning. Verifying last snowden catheter change date as frequent UTI history. #4. Chronic anemia/iron deficiency anemia, currently normocytic, previously microcytic: Admission hemoglobin [], MCV [], baseline appears more recently 08-02, will continue to closely monitor and repeat CBC in the AM, encourage continued outpatient follow-up as has previously been administered IV Fe. #5. Chronic hypotension: Patient with chronic hypotension/orthostasis, will maintain on Florinef and midodrine. #6. History of polysubstance abuse, history of IV drug abuse with Hepatitis C: Encourage continued outpatient follow-up with infectious disease, encourage continued clean status, UDS pending upon admission. #7. Anxiety and depression: We will continue patient home Cymbalta and Klonopin regimen and continue to encourage outpatient follow-up/counseling as previously arranged. #8. History of VTE: Not chronically anticoagulated, will maintain on chemoprophylaxis as noted #9. Tobacco Abuse: Encouraged cessation, inpatient consultation per RT, NR if desired. #10. History of Clostridium C. difficile colitis: Given antibiotic usage will maintain on lactobacillus regimen. DVT: Lovenox Charges/Coding Visit Charges Inpatient E&M: 86386 Subs Hosp L2
--- NOTE | 2024-08-11 12:35 | WOUNDNOTE ---
wound photo: sacrum
[2024-08-11 15:00] VITALS: BP 114/79; PULSE 78; RESP 18; TEMP 36.2; O2SAT 98
--- NOTE | 2024-08-11 17:38 | CON.PCM.ID_ITS ---
Assessment & Plan Assessment/Plan (1) Chronic paraplegia: (2) Infected decubitus ulcer: PLAN: Wound cx with enterococcus, MRSA. CT done. Ucx with enterobacter. Transfer planned. On vanc/cefepime. thank you, will follow HPI Consult Data Date of Consult: 08/11/24 HPI Narrative Reason for Consultation: infected decub HPI Narrative: ROGELIO MARRERO, is a 44 F with paraplegia, presented with several days worsening sacral wounds. Admitted here last month and transferred to [facility]. No fever or chills. Home health had noticed new redness, swelling, drainage. Came to ED, admitted on vanc/cefepime. Feeling better. Full ROS performed and neg except as noted above. [facility] Medical History MRSA (methicillin resistant staph aureus) culture positive Decubitus ulcer of sacral region, stage 2 Sacral wound Ovarian cyst Hepatitis C Kidney stones Chronic indwelling Charles catheter DVT (deep venous thrombosis) Paraplegia Spinal abscess Neurogenic bladder Anxiety and depression Chronic hypotension History of intravenous drug abuse Esophageal reflux Home Medications ?Medication ?Instructions ?Recorded ?Last Taken ?Type baclofen 20 mg tablet 20 mg PO 4X/DAY muscle spasm 10/19/19 03/31/24 History duloxetine 60 mg capsule,delayed 120 mg PO DAILY depression 10/19/19 03/31/24 History release oxybutynin chloride 10 mg 10 mg PO DAILY bladder 12/24/19 03/31/24 History tablet,extended release 24 hr clonazepam 0.5 mg tablet 0.5 mg PO TID PRN Anxiety #9 tabs 07/05/20 05/20/23 Rx cilostazol 50 mg tablet 50 mg PO BID antiplatelet 08/15/22 03/31/24 History meloxicam 15 mg tablet 15 mg PO DAILY spasms 08/15/22 05/20/23 History ferrous sulfate 325 mg (65 mg 325 mg PO QODAY 03/27/24 03/30/24 History iron) tablet (FeroSul) gabapentin 800 mg tablet 800 mg PO 4X/DAY 03/31/24 03/31/24 History nystatin 100,000 unit/gram topical 1 applic topical PRN PRN skin 03/31/24 Unknown History cream irritation sodium chloride 0.9 % irrigation 1 irrig irrigation UD 03/31/24 03/31/24 History solution ascorbate calcium (vitamin C) 500 500 mg PO QODAY 08/08/24 Unknown History mg tablet Allergy/AdvReac Type Severity Reaction Status Date / Time Penicillins AdvReac PT UNSURE Verified 08/08/24 20:10 OF REACTION Family History Mother Multiple sclerosis Surgical History History of surgery on lower extremity S/P debridement History of suprapubic catheter Hx of spinal surgery Social History household members: none Smoking Status: Light Smoker (<10/day) alcohol intake: current Alcohol type: other substance use type: former substance user Date of last use: Prior history of IV drug abuse with heroin and methamphetamine. Physical Exam Const alert, oriented x3 and no apparent distress General Appearance: cooperative HEENT normocephalic and head/scalp atraumatic Eyes PERRL and EOMs intact bilaterally Neck supple and No nodes Resp normal air movement and clear to auscultation bilaterally Cardio regular rate and regular rhythm GI soft to palpation, non-tender and non-distended Extremity General Extremity: Negative for edema Skin Skin Narrative: reviewed wound photos Neuro CN's II-XII intact bilaterally Lab / Micro Data Attestation: I reviewed the patient's lab results. 08/11/24 05:37 08/11/24 05:37 Labs: Laboratory Results - last 24 hr 08/11/24 05:37: WBC 9.6, RBC 3.81 L, Hgb 10.7 L, Hct 33.1 L, MCV 86.9, MCH 28.1, MCHC 32.3, RDW Std Deviation 46.1 H, RDW Coeff of Domonique 14.4, Plt Count 268, MPV 9.9, Immature Gran % (Auto) 0.800, Neut % (Auto) 69.1, Lymph % (Auto) 20.1, [place] % (Auto) 7.6, Eos % (Auto) 1.8, Baso % (Auto) 0.6, Absolute Neuts (auto) 6.6, Absolute Lymphs (auto) 1.92, Nucleated RBC % 0, Sodium 142, Potassium 3.8, C hloride 109 H, Carbon Dioxide 32.0, Anion Gap 0 L, BUN 6 L, Creatinine 0.31 L, Estim Creat Clear Calc 267.81, Est GFR (MDRD) Af Amer 303, Est GFR (MDRD) Non-Af 250, BUN/Creatinine Ratio 19.5, Glucose 90, Calcium 8.0 L, Magnesium 1.8 Micro: Microbiology 08/08/24 22:26 Blood Culture (Wb) - Other Blood Culture - Preliminary No growth in 48 hours. 08/09/24 02:00 Wound - Sacral Gram Stain - Final 08/09/24 02:00 Wound - Sacral Wound Culture - Final Meth. resistant Staph. aureus Enterococcus faecalis 08/09/24 02:00 Wound - Sacral Skin and Soft Tissue MRSA/MSSA (PCR - Final Meth. resistant Staph. aureus
[2024-08-11 22:00] VITALS: BP 103/59; PULSE 78; RESP 16; TEMP 36.3; O2SAT 97
[2024-08-12 00:18] LABS: Vancomycin, Trough Level 19.8 ug/mL (5.0-15.0)
[2024-08-12] MEDS: fentaNYL 100 MCG/2 ML Ampul 25 MCG IV ×3 (01:10→10:31)
[2024-08-12] MEDS: 0.9% Saline Lock 10 ML Syringe IV ×3 (01:11→22:32)
[2024-08-12] MEDS: Vancomycin IV 1,000 MG/200 ML BAG 200 MG IV ×3 (01:12→17:36)
--- NOTE | 2024-08-12 01:15 | PCM.RX.CS ---
Consult Antibiotic Management Pharmacy has been consulted to manage selected antibiotic: Vancomycin Type of Intervention Type of Consult: Follow-up Labs Labs: Sodium 142 mmol/L (136-145) 08/11/24 05:37 Potassium 3.8 mmol/L (3.5-5.1) 08/11/24 05:37 Chloride 109 mmol/L (98-107) H 08/11/24 05:37 Carbon Dioxide 32.0 mmol/L (21.0-32.0) 08/11/24 05:37 Anion Gap 0 (5-15) L 08/11/24 05:37 BUN 6 mg/dL (7-18) L 08/11/24 05:37 Creatinine 0.31 mg/dL (0.55-1.02) L 08/11/24 05:37 Est GFR (MDRD) Af Amer 303 mL/min (>60) 08/11/24 05:37 Est GFR (MDRD) Non-Af 250 mL/min (>60) 08/11/24 05:37 BUN/Creatinine Ratio 19.5 RATIO (10-20) 08/11/24 05:37 Glucose 90 mg/dL (74-106) 08/11/24 05:37 Vancomycin Trough 19.8 ug/mL (5.0-15.0) H 08/11/24 23:45 Microbiology Microbiology: Microbiology 08/08/24 22:26 Blood Culture (Wb) - Other Blood Culture - Preliminary No growth in 48 hours. 08/09/24 02:00 Wound - Sacral Gram Stain - Final 08/09/24 02:00 Wound - Sacral Wound Culture - Final Meth. resistant Staph. aureus Enterococcus faecalis 08/09/24 02:00 Wound - Sacral Skin and Soft Tissue MRSA/MSSA (PCR - Final Meth. resistant Staph. aureus 08/08/24 21:40 Urine, Catheterized Urine Culture - Final Enterobacter cloacae complex Goal Trough Goal Trough: 15-20 mcg/mL Pharmacy Plan for Drug Dosing Pharmacy Plan for Drug Dosing: Pharmacy Service will continue to monitor and adjust dosing as required. TROUGH 19.8 @ 6.5 HOURS. NO CHANGES, FOLLOW UP TROUGH IN 4 DAYS Follow-Up Labs Follow-Up Labs: Trough: Vancomycin Date/Time Labs Ordered Labs to be done on [date and time ordered]: 08/16 @ 0000
[2024-08-12] MEDS: oxyCODONE 5 MG Tablet 10 MG PO ×4 (03:54→22:28)
[2024-08-12 04:00] VITALS: BP 113/83; PULSE 87; RESP 18; TEMP 36.4; O2SAT 96
[2024-08-12 06:00] VITALS: BMI 21.4
[2024-08-12] MEDS: NORMAL SALINE 0.9% IV ×3 (06:11→22:31)
[2024-08-12] MEDS: Lactobacillis Acidophilus 1 CAP PO ×3 (06:11→22:26)
[2024-08-12] MEDS: CEFEPIME HCL IV ×3 (06:11→22:31)
[2024-08-12 08:24] VITALS: O2SAT 96
[2024-08-12 10:00] VITALS: BP 102/72; PULSE 68; RESP 18; TEMP 36.3; O2SAT 96
--- NOTE | 2024-08-12 10:34 | PCM.PN.ID ---
Physical Exam Narrative Feeling uncomfortable with packing in her wound. No fever, no n/v/d. Const alert and no apparent distress General Appearance: cooperative Resp normal air movement and clear to auscultation bilaterally Cardio regular rate and regular rhythm GI soft to palpation, non-tender and non-distended Skin Skin Narrative: sacral wound bandaged ID ID: Route of nutrition/ use of supplements: [] Nutritional Intake: [] IV Site: [] Charles Catheter: [] Assessment & Plan Assessment/Plan (1) Chronic paraplegia: (2) Infected decubitus ulcer: PLAN: Wound cx with enterococcus, MRSA. CT done. Ucx with enterobacter. Transfer planned. On vanc/cefepime/flagyl. will follow
[2024-08-12] MEDS: Tolterodine Tartrate 2 MG CAP.SA PO (10:38)
[2024-08-12] MEDS: Cilostazol 50 MG Tablet PO ×2 (10:38→22:27)
[2024-08-12] MEDS: Ferrous Sulfate 325 MG Tablet PO (10:39)
[2024-08-12] MEDS: Meloxicam 15 MG Tablet PO (10:39)
[2024-08-12] MEDS: Ascorbic Acid 500 MG Tablet PO (10:39)
[2024-08-12] MEDS: DULoxetine Hcl 60 MG Capsule 120 MG PO (10:39)
[2024-08-12] MEDS: DAKIN'S SOL HALF STRENGTH (=0.25%) TOPICAL (10:42)
[2024-08-12] MEDS: Enoxaparin 40 MG/0.4 ML Syringe SC (10:43)
[2024-08-12] MEDS: Baclofen 10 MG Tablet 20 MG PO ×4 (10:45→22:27)
[2024-08-12] MEDS: clonazePAM 0.5 MG Tablet PO (10:50)
[2024-08-12] MEDS: Gabapentin 800 MG Tablet PO ×4 (10:51→22:27)
--- NOTE | 2024-08-12 11:12 | PN.HOSP_ITS ---
Subjective Subjective No change overnight, awaiting transfer Objective Data Objective Data Vital Signs: Vital Signs Temp Pulse Resp BP Pulse Ox O2 Del Method 97.4 F L 68 18 102/72 96 Room Air 08/12/24 10:00 08/12/24 10:00 08/12/24 10:00 08/12/24 10:00 08/12/24 10:00 08/12/24 10:55 Oxygen Delivery Method Room Air Weight: 162 lb 4.163 oz Body Mass Index (BMI) 21.4 Intake & Output: Intake and Output for Last 24 Hours 08/11/24 08/12/24 08/13/24 03:59 03:59 03:59 Intake Total 2190.0 / 2190.0 1590 / 1590 630 / 630 Output Total 2250 / 2250 3450 / 3450 2100 / 2100 Balance -60.0 / -60.0 -1860 / -1860 -1470 / -1470 Lab / Micro Data 08/11/24 05:37 08/11/24 05:37 Labs: Laboratory Results - last 24 hr 08/11/24 23:45: Vancomycin Trough 19.8 H Micro: Microbiology 08/08/24 22:26 Blood Culture (Wb) - Other Blood Culture - Preliminary No growth in 48 hours. 08/09/24 02:00 Wound - Sacral Gram Stain - Final 08/09/24 02:00 Wound - Sacral Wound Culture - Final Meth. resistant Staph. aureus Enterococcus faecalis 08/09/24 02:00 Wound - Sacral Skin and Soft Tissue MRSA/MSSA (PCR - Final Meth. resistant Staph. aureus 08/08/24 21:40 Urine, Catheterized Urine Culture - Final Enterobacter cloacae complex Physical Exam Narrative General: Alert, Oriented x3, Cooperative, No apparent distress HEENT: Atraumatic, PERRLA, EOMI, Normocephalic Oral: Moist Mucosa Neck: Supple, No JVD Lungs: Clear to auscultation, Normal air movement, No rhonchi, No wheeze, No rales Cardiovascular: Regular rate, Regular Rhythm, Normal S1, Normal S2, No murmurs Abdomen: Soft, Non Tender, Non-Distended, No Hepato-splenomegaly Extremities: No edema, Capillary Refill Less than 3 Seconds Skin: Decubitus ulcers currently dressed Musculoskeletal: No Tenderness to Palpation of Joints or Extremities Neurological: Bilateral lower extremity paraplegia from a previous epidural abscess. Upper extremities 5 out of 5 bilaterally Psych/Mental Status: Normal Affect, Appropriate Assessment & Plan Assessment/Plan (1) Complicated urinary tract infection: (2) Sacral decubitus ulcer, stage III: PLAN: Plan #1. Acutely Infected Worsening now stage III-IV (suspect undermined) pressure wound over the coccyx with periwound erythema concerning for acute cellulitis, possibly osteomyelitis (reported as Septic per ED physician as patient has leukocytosis, tachycardia and source with SBP < 90; however, she is chronically hypotensive, stable BP compared to her baseline, thus no obvious end organ damage, thus unable to state clearly that she has sepsis): Will admit to PCU given concurrent chronic hypotension, will maintain on judicious IV fluids, will obtain Wound Cx/Wound MRSA assessment, will initiate on cefepime and IV vancomycin based on most recent admission cultures w/ ID consultation if transition to [facility] is prolonged and de-escalation/change per their discretion, offload, wound RN consulted. 08/09/2024: Awaiting transfer to [facility] 08/10/2024: Awaiting transfer, continue with antibiotics, leukocytosis is improving. Cultures so far with MRSA as well as Enterococcus and her wounds and Enterobacter in her urine 08/11/2024: Improvement in pain with the increase in oxycodone from her wound. Continue with local wound care 08/12/2024: Awaiting transfer to [facility] #2. Possible Complicated Urinary Tract Infection secondary to chronic indwelling suprapubic catheter versus chronic colonization: UA upon ED evaluation remarkable, pending UCx, continue judicious IVFs, monitor I/Os, continue IV vancomycin and cefepime based on previous cultures with noted most recent enterococcal infection w/ transition as able pending sensitivities and speciation. Infectious disease consulted. 08/10/2024: Enterobacter in her urine, sensitive to cefepime which she is already on #3. History of spinal abscess with resulting paraplegia, chronic decubitus ulcers/wounds requiring previous debridement, chronic neurogenic bladder with chronic suprapubic catheter: As long as BP tolerates will continue home Klonopin and gabapentin regimen, continue offloading, frequent positional changes, barrier cream, PT/OT/CM consultation for discharge planning. Verifying last snowden catheter change date as frequent UTI history. #4. Chronic anemia/iron deficiency anemia, currently normocytic, previously microcytic: Admission hemoglobin [], MCV [], baseline appears more recently , will continue to closely monitor and repeat CBC in the AM, encourage continued outpatient follow-up as has previously been administered IV Fe. #5. Chronic hypotension: Patient with chronic hypotension/orthostasis, will maintain on Florinef and midodrine. #6. History of polysubstance abuse, history of IV drug abuse with Hepatitis C: Encourage continued outpatient follow-up with infectious disease, encourage continued clean status, UDS pending upon admission. #7. Anxiety and depression: We will continue patient home Cymbalta and Klonopin regimen and continue to encourage outpatient follow-up/counseling as previously arranged. #8. History of VTE: Not chronically anticoagulated, will maintain on chemoprophylaxis as noted #9. Tobacco Abuse: Encouraged cessation, inpatient consultation per RT, NR if desired. #10. History of Clostridium C. difficile colitis: Given antibiotic usage will maintain on lactobacillus regimen. DVT: Lovenox Charges/Coding Visit Charges Inpatient E&M: 05310 Subs Hosp L1
[2024-08-12] MEDS: metroNIDAZOLE 500 MG Tablet PO ×2 (13:36→22:26)
[2024-08-12 16:00] VITALS: BP 109/77; PULSE 77; RESP 18; TEMP 36.3; O2SAT 96
[2024-08-12 20:30] VITALS: BP 130/89; PULSE 66; RESP 18; TEMP 36.6; O2SAT 100
[2024-08-12] MEDS: Acetaminophen 325 MG Tablet 650 MG PO (22:27)
[2024-08-13] MEDS: fentaNYL 100 MCG/2 ML Ampul 25 MCG IV ×4 (00:26→20:40)
[2024-08-13] MEDS: Vancomycin IV 1,000 MG/200 ML BAG 200 MG IV ×3 (00:26→16:53)
[2024-08-13] MEDS: 0.9% Saline Lock 10 ML Syringe IV ×4 (00:26→20:40)
[2024-08-13 03:00] VITALS: BP 101/60; PULSE 88; RESP 18; TEMP 36.6; O2SAT 97
[2024-08-13] MEDS: oxyCODONE 5 MG Tablet 10 MG PO ×4 (03:10→22:17)
[2024-08-13] MEDS: Acetaminophen 325 MG Tablet 650 MG PO (03:11)
[2024-08-13 04:09] VITALS: BMI 25.4
[2024-08-13] MEDS: metroNIDAZOLE 500 MG Tablet PO ×3 (05:54→22:17)
[2024-08-13] MEDS: CEFEPIME HCL IV ×3 (05:54→22:13)
[2024-08-13] MEDS: Lactobacillis Acidophilus 1 CAP PO ×3 (05:54→22:16)
[2024-08-13] MEDS: NORMAL SALINE 0.9% IV ×3 (05:54→22:13)
[2024-08-13 07:15] LABS: Absolute Lymphocyte Count 1.74 X10^3/uL (0.83-4.51); Absolute Neutrophil Count 4.7 X10^3/uL (2.0-7.7); Basophil# 0.04 X10^3/uL; Basophil% 0.5 % (0-1); Eosinophil# 0.15 X10^3/uL; Eosinophils% 2.1 % (0-5); Hematocrit 34.7 % (37-47); Lymphocyte # 1.74 X10^3/ul (0.83-4.51); Lymphocyte % 23.8 % (19-41); Mean Corp Hgb Conc 31.7 g/dL (32-36); Mean Corpuscular Hgb 27.9 pg (27.0-32.0); Mean Corpuscular Volume 88.1 fL (81-99); Mean Platelet Vol. 9.7 fl (6.2-12.0); Monocyte# 0.65 X10^3/uL; Monocyte% 8.9 % (0-10); NRBC Flagged by Analyzer 0 % (0-5); Neutrophil # 4.67 X10^3/uL (2.7-7.7); Platelet Count 281 K/mm3 (150-450); RBC Distribution Width CV 14.1 % (11.6-14.6); RBC Distribution Width SD 45.3 fl (35.1-43.9); Red Blood Count 3.94 M/mm3 (4.2-5.4); White Blood Count 7.3 K/mm3 (4.4-11.0)
[2024-08-13 07:40] LABS: Anion Gap 1 (5-15); BUN 9 mg/dL (7-18); BUN/Creat Ratio 23.5 RATIO (10-20); Calcium,Total 8.4 mg/dL (8.5-10.1); Chloride 108 mmol/L (98-107); Creatinine, Serum 0.38 mg/dL (0.55-1.02); EST Glomerular Filtration Rate 195 mL/min (>60); Est Glom Filt Rate - Afr Amer 236 mL/min (>60); Estimated Creatinine Clearance 227.22 ml/min; Glucose 98 mg/dL (74-106); Potassium 4.1 mmol/L (3.5-5.1); Sodium Level 142 mmol/L (136-145)
[2024-08-13 09:00] VITALS: BP 117/81; PULSE 73; RESP 18; TEMP 36.5; O2SAT 97
--- NOTE | 2024-08-13 09:17 | NURSING ---
Per Tiffanie band and cuff cutter I called [facility] transfer line and let them know we do not need a bed at their facility any longer.
--- NOTE | 2024-08-13 11:43 | PN.HOSP_ITS ---
Subjective Subjective Doing well, no issues overnight Objective Data Objective Data Vital Signs: Vital Signs Temp Pulse Resp BP Pulse Ox O2 Del Method 97.7 F L 73 18 117/81 H 97 Room Air 08/13/24 09:00 08/13/24 09:00 08/13/24 09:00 08/13/24 09:00 08/13/24 09:00 08/13/24 09:00 Oxygen Delivery Method Room Air Weight: 192 lb 10.944 oz Body Mass Index (BMI) 25.4 Intake & Output: Intake and Output for Last 24 Hours 08/12/24 08/13/24 08/14/24 03:59 03:59 03:59 Intake Total 1590 / 1590 2170 / 2170 410 / 410 Output Total 3450 / 3450 4000 / 4000 1950 / 1950 Balance -1860 / -1860 -1830 / -1830 -1540 / -1540 Lab / Micro Data 08/13/24 06:50 08/13/24 06:50 Labs: Laboratory Results - last 24 hr 08/13/24 06:05: WBC Cancelled, Corrected WBC Cancelled, RBC Cancelled, Hgb Cancelled, Hct Cancelled, MCV Cancelled, MCH Cancelled, MCHC Cancelled, RDW Std Deviation Cancelled, RDW Coeff of Domonique Cancelled, Plt Count Cancelled, MPV Cancelled, Immature Gran % (Auto) Cancelled, Neut % (Auto) Cancelled, Lymph % (Auto) Cancelled, [place] % (Auto) Cancelled, Eos % (Auto) Cancelled, Baso % (Auto) Cancelled, Absolute Neuts (auto) Cancelled, Absolute Lymphs (auto) Cancelled, Total Counted Cancelled, Neutrophils % (Manual) Cancelled, Band Neutrophils % Cancelled, Lymphocytes % (Manual) Cancelled, Monocytes % (Manual) Cancelled, Eosinophils % (Manual) Cancelled, Basophils % (Manual) Cancelled, Metamyelocytes % Cancelled, Myelocytes % Cancelled, Promyelocytes % Cancelled, Blast Cells % Cancelled, Plasma Cell % (Manual) Cancelled, Other Cells % Cancelled, Nucleated RBC % Cancelled, Nucleated RBCs/100 WBC Cancelled, Differential Comment Cancelled, Diff Path Review Cancelled, Hypersegmented Neuts Cancelled, Atypical Lymphocytes Cancelled, Reactive Lymphocytes Cancelled, Smudge Cells Cancelled, Toxic Granulation Cancelled, Toxic Vacuolation Cancelled, Dohle Bodies Cancelled, Romie Rods Cancelled, Platelet Estimate Cancelled, Plt Morphology Comment Cancelled, RBC Morphology Cancelled 08/13/24 06:05: RBC Morphology Cancelled, Polychromasia Cancelled, Hypochromasia Cancelled, Basophilic Stippling Cancelled, Anisocytosis Cancelled, Microcytosis Cancelled, Macrocytosis Cancelled, Spherocytes Cancelled, Sickle Cells Cancelled, Target Cells Cancelled, Tear Drop Cells Cancelled, Ovalocytes Cancelled, Stomatocytes Cancelled, Melgar-Sikes Bodies Cancelled, Chilo Cells Cancelled, Bite Cells Cancelled, Crenated Cell Cancelled, Acanthocytes (Spur) Cancelled, Rouleaux Cancelled, Schistocytes Cancelled, Sodium Cancelled, Potassium Cancelled, Chloride Cancelled, Carbon Dioxide Cancelled, Anion Gap Cancelled, BUN Cancelled, Creatinine Cancelled, Estim Creat Clear Calc Cancelled, Est GFR (MDRD) Af Amer Cancelled, Est GFR (MDRD) Non-Af Cancelled, BUN/Creatinine Ratio Cancelled, Glucose Cancelled, Calcium Cancelled 08/13/24 06:50: WBC 7.3, RBC 3.94 L, Hgb 11.0 L, Hct 34.7 L, MCV 88.1, MCH 27.9, MCHC 31.7 L, RDW Std Deviation 45.3 H, RDW Coeff of Domonique 14.1, Plt Count 281, MPV 9.7, Immature Gran % (Auto) 0.700, Neut % (Auto) 64.0, Lymph % (Auto) 23.8, [place] % (Auto) 8.9, Eos % (Auto) 2.1, Baso % (Auto) 0.5, Absolute Neuts (auto) 4.7, Absolute Lymphs (auto) 1.74, Nucleated RBC % 0, Sodium 142, Potassium 4.1, C hloride 108 H, Carbon Dioxide 33.0 H, Anion Gap 1 L, BUN 9, Creatinine 0.38 L, Estim Creat Clear Calc 227.22, Est GFR (MDRD) Af Amer 236, Est GFR (MDRD) Non-Af 195, BUN/Creatinine Ratio 23.5 H, Glucose 98, Calcium 8.4 L Micro: Microbiology 08/08/24 22:26 Blood Culture (Wb) - Other Blood Culture - Preliminary No growth in 48 hours. 08/09/24 02:00 Wound - Sacral Gram Stain - Final 08/09/24 02:00 Wound - Sacral Wound Culture - Final Meth. resistant Staph. aureus Enterococcus faecalis 08/09/24 02:00 Wound - Sacral Skin and Soft Tissue MRSA/MSSA (PCR - Final Meth. resistant Staph. aureus 08/08/24 21:40 Urine, Catheterized Urine Culture - Final Enterobacter cloacae complex Physical Exam Narrative General: Alert, Oriented x3, Cooperative, No apparent distress HEENT: Atraumatic, PERRLA, EOMI, Normocephalic Oral: Moist Mucosa Neck: Supple, No JVD Lungs: Clear to auscultation, Normal air movement, No rhonchi, No wheeze, No rales Cardiovascular: Regular rate, Regular Rhythm, Normal S1, Normal S2, No murmurs Abdomen: Soft, Non Tender, Non-Distended, No Hepato-splenomegaly Extremities: No edema, Capillary Refill Less than 3 Seconds Skin: Decubitus ulcers currently dressed Musculoskeletal: No Tenderness to Palpation of Joints or Extremities Neurological: Bilateral lower extremity paraplegia from a previous epidural abscess. Upper extremities 5 out of 5 bilaterally Psych/Mental Status: Normal Affect, Appropriate Assessment & Plan Assessment/Plan (1) Complicated urinary tract infection: (2) Sacral decubitus ulcer, stage III: PLAN: Plan #1. Acutely Infected Worsening now stage III-IV (suspect undermined) pressure wound over the coccyx with periwound erythema concerning for acute cellulitis, possibly osteomyelitis (reported as Septic per ED physician as patient has leukocytosis, tachycardia and source with SBP < 90; however, she is chronically hypotensive, stable BP compared to her baseline, thus no obvious end organ damage, thus unable to state clearly that she has sepsis): Will admit to PCU given concurrent chronic hypotension, will maintain on judicious IV fluids, will obtain Wound Cx/Wound MRSA assessment, will initiate on cefepime and IV vancomycin based on most recent admission cultures w/ ID consultation if transition to [facility] is prolonged and de-escalation/change per their discretion, offload, wound RN consulted. 08/09/2024: Awaiting transfer to [facility] 08/10/2024: Awaiting transfer, continue with antibiotics, leukocytosis is improving. Cultures so far with MRSA as well as Enterococcus and her wounds and Enterobacter in her urine 08/11/2024: Improvement in pain with the increase in oxycodone from her wound. Continue with local wound care 08/12/2024: Awaiting transfer to [facility] 08/13/2024: Plastic surgery is available here will cancel transfer to [facility] Plan for debridement and wound VAC placement tomorrow or Sunday #2. Possible Complicated Urinary Tract Infection secondary to chronic indwelling suprapubic catheter versus chronic colonization: UA upon ED evaluation remarkable, pending UCx, continue judicious IVFs, monitor I/Os, continue IV vancomycin and cefepime based on previous cultures with noted most recent enterococcal infection w/ transition as able pending sensitivities and speciation. Infectious disease consulted. 08/10/2024: Enterobacter in her urine, sensitive to cefepime which she is already on #3. History of spinal abscess with resulting paraplegia, chronic decubitus ulcers/wounds requiring previous debridement, chronic neurogenic bladder with chronic suprapubic catheter: As long as BP tolerates will continue home Klonopin and gabapentin regimen, continue offloading, frequent positional changes, barrier cream, PT/OT/CM consultation for discharge planning. Verifying last snowden catheter change date as frequent UTI history. #4. Chronic anemia/iron deficiency anemia, currently normocytic, previously microcytic: Admission hemoglobin [], MCV [], baseline appears more recently , will continue to closely monitor and repeat CBC in the AM, encourage continued outpatient follow-up as has previously been administered IV Fe. #5. Chronic hypotension: Patient with chronic hypotension/orthostasis, will maintain on Florinef and midodrine. #6. History of polysubstance abuse, history of IV drug abuse with Hepatitis C: Encourage continued outpatient follow-up with infectious disease, encourage continued clean status, UDS pending upon admission. #7. Anxiety and depression: We will continue patient home Cymbalta and Klonopin regimen and continue to encourage outpatient follow-up/counseling as previously arranged. #8. History of VTE: Not chronically anticoagulated, will maintain on chemoprophylaxis as noted #9. Tobacco Abuse: Encouraged cessation, inpatient consultation per RT, NR if desired. #10. History of Clostridium C. difficile colitis: Given antibiotic usage will maintain on lactobacillus regimen. DVT: Lovenox Charges/Coding Visit Charges Inpatient E&M: 21240 Subs Hosp L2
[2024-08-13] MEDS: Enoxaparin 40 MG/0.4 ML Syringe SC (11:45)
[2024-08-13] MEDS: Baclofen 10 MG Tablet 20 MG PO ×4 (11:46→22:20)
[2024-08-13] MEDS: DULoxetine Hcl 60 MG Capsule 120 MG PO (11:46)
[2024-08-13] MEDS: Gabapentin 800 MG Tablet PO ×4 (11:47→22:17)
[2024-08-13] MEDS: Cilostazol 50 MG Tablet PO ×2 (11:47→22:20)
[2024-08-13] MEDS: Tolterodine Tartrate 2 MG CAP.SA PO (11:47)
[2024-08-13] MEDS: Meloxicam 15 MG Tablet PO (11:48)
[2024-08-13] MEDS: DAKIN'S SOL HALF STRENGTH (=0.25%) TOPICAL (11:48)
--- NOTE | 2024-08-13 13:44 | EX.PCM.CON.S ---
Assessment & Plan Assessment/Plan (1) Decubitus ulcer of sacral region, stage 4: PLAN: I talked the patient extensively about the risks of surgery, including bleeding, infection, damage to surrounding structures, surgical site dehiscence and wound formation, need for wound care, need for repeat operations, failure to obtain the desired result, DVT/PE, and the risks of anesthesia including . The benefits and alternatives of this surgery were also discussed. All of their questions were answered, and they agreed to proceed with surgery. We talked about debridement in the OR electively. I talked to the primary team about this and they were in agreement. We will likely place an irrigating wound VAC, followed by transition to regular wound VAC change 3 times per week (she will need home health and home wound VAC). We will also plan for pressure offloading bed to be delivered to her home before discharge. She will need to be established at the wound care center. Agree with nutrition consultation. Plan for ordering nutrition labs including prealbumin and albumin. I talked her about smoking cessation today and will continue to reinforce this. Continue pressure offloading and every 2 hour turns as possible with pressure offloading bed. Continue Dakin's wet-to-dry twice daily. HPI Consult Data Date of Consult: 08/13/24 HPI Narrative HPI Narrative: ROGELIO MARRERO is a delightful 44-year-old female with past medical history of depression, anxiety, intravenous drug use and polysubstance abuse resulting in hepatitis C, history of VTE, chronic paraplegia secondary to a spinal abscess at the level of C4-C5 (some ability to move extremities/lift her hips, but limited otherwise), neurogenic bladder with suprapubic catheters, chronic hypotension, tobacco use (continues to smoke), and a stage IV sacral decubitus ulcer. She was admitted 4 days ago for the decubitus ulcer out of concern of low blood pressure and sepsis. She has had stable vital signs ever since (albeit chronically low systolic blood pressure in the 90s). Today on the floor she is nontoxic-appearing with stable vital signs and a white blood cell count of 7.3. She is now on a pressure offloading bed. She has been receiving Dakin's wet to dry dressings to the sacral ulcer. Patient reports that in the 5 years of her paraplegia, she has never had a sacral ulcer but developed 1 this summer when she was using a roller on her lower back for massage. She does not have a pressure offloading bed at home and lives with a roommate. She does not have any recent history of DVT PE as she is chronically paraplegic. CT scan performed on admission demonstrated surrounding induration and potential cellulitis around the wound. [facility] Medical History MRSA (methicillin resistant staph aureus) culture positive Decubitus ulcer of sacral region, stage 2 Sacral wound Ovarian cyst Hepatitis C Kidney stones Chronic indwelling Charles catheter DVT (deep venous thrombosis) Paraplegia Spinal abscess Neurogenic bladder Anxiety and depression Chronic hypotension History of intravenous drug abuse Esophageal reflux Home Medications ?Medication ?Instructions ?Recorded ?Last Taken ?Type baclofen 20 mg tablet 20 mg PO 4X/DAY muscle spasm 10/19/19 03/31/24 History duloxetine 60 mg capsule,delayed 120 mg PO DAILY depression 10/19/19 03/31/24 History release oxybutynin chloride 10 mg 10 mg PO DAILY bladder 12/24/19 03/31/24 History tablet,extended release 24 hr clonazepam 0.5 mg tablet 0.5 mg PO TID PRN Anxiety #9 tabs 07/05/20 05/20/23 Rx cilostazol 50 mg tablet 50 mg PO BID antiplatelet 08/15/22 03/31/24 History meloxicam 15 mg tablet 15 mg PO DAILY spasms 08/15/22 05/20/23 History ferrous sulfate 325 mg (65 mg 325 mg PO QODAY 03/27/24 03/30/24 History iron) tablet (FeroSul) gabapentin 800 mg tablet 800 mg PO 4X/DAY 03/31/24 03/31/24 History nystatin 100,000 unit/gram topical 1 applic topical PRN PRN skin 03/31/24 Unknown History cream irritation sodium chloride 0.9 % irrigation 1 irrig irrigation UD 03/31/24 03/31/24 History solution ascorbate calcium (vitamin C) 500 500 mg PO QODAY 08/08/24 Unknown History mg tablet Allergy/AdvReac Type Severity Reaction Status Date / Time Penicillins AdvReac PT UNSURE Verified 08/08/24 20:10 OF REACTION Family History Mother Multiple sclerosis Family History other Surgical History History of surgery on lower extremity S/P debridement History of suprapubic catheter Hx of spinal surgery Social History household members: none Smoking Status: Light Smoker (<10/day) alcohol intake: current Alcohol type: other substance use type: former substance user Date of last use: Prior history of IV drug abuse with heroin and methamphetamine. Physical Exam Narrative Patient seen and examined today with the wound care nursing staff She has a stage IV sacral decubitus ulcer. There is exposed bone at the base of the superior ulcer but the inferior ulcer is unstageable with necrotic tissue. The wounds connect through a small skin bridge and undermined inferiorly and laterally. There are no fluid collections and no signs of acute infection at this time. The wound measures approximately 10 x 8 cm. Const alert and oriented x3 Lab / Micro Data 08/13/24 06:50 08/13/24 06:50 Labs: Laboratory Results - last 24 hr 08/13/24 06:05: WBC Cancelled, Corrected WBC Cancelled, RBC Cancelled, Hgb Cancelled, Hct Cancelled, MCV Cancelled, MCH Cancelled, MCHC Cancelled, RDW Std Deviation Cancelled, RDW Coeff of Domonique Cancelled, Plt Count Cancelled, MPV Cancelled, Immature Gran % (Auto) Cancelled, Neut % (Auto) Cancelled, Lymph % (Auto) Cancelled, Hughes % (Auto) Cancelled, Eos % (Auto) Cancelled, Baso % (Auto) Cancelled, Absolute Neuts (auto) Cancelled, Absolute Lymphs (auto) Cancelled, Total Counted Cancelled, Neutrophils % (Manual) Cancelled, Band Neutrophils % Cancelled, Lymphocytes % (Manual) Cancelled, Monocytes % (Manual) Cancelled, Eosinophils % (Manual) Cancelled, Basophils % (Manual) Cancelled, Metamyelocytes % Cancelled, Myelocytes % Cancelled, Promyelocytes % Cancelled, Blast Cells % Cancelled, Plasma Cell % (Manual) Cancelled, Other Cells % Cancelled, Nucleated RBC % Cancelled, Nucleated RBCs/100 WBC Cancelled, Differential Comment Cancelled, Diff Path Review Cancelled, Hypersegmented Neuts Cancelled, Atypical Lymphocytes Cancelled, Reactive Lymphocytes Cancelled, Smudge Cells Cancelled, Toxic Granulation Cancelled, Toxic Vacuolation Cancelled, Dohle Bodies Cancelled, Romie Rods Cancelled, Platelet Estimate Cancelled, Plt Morphology Comment Cancelled, RBC Morphology Cancelled 08/13/24 06:05: RBC Morphology Cancelled, Polychromasia Cancelled, Hypochromasia Cancelled, Basophilic Stippling Cancelled, Anisocytosis Cancelled, Microcytosis Cancelled, Macrocytosis Cancelled, Spherocytes Cancelled, Sickle Cells Cancelled, Target Cells Cancelled, Tear Drop Cells Cancelled, Ovalocytes Cancelled, Stomatocytes Cancelled, Melgar-Hiltonia Bodies Cancelled, Roby Cells Cancelled, Bite Cells Cancelled, Crenated Cell Cancelled, Acanthocytes (Spur) Cancelled, Rouleaux Cancelled, Schistocytes Cancelled, Sodium Cancelled, Potassium Cancelled, Chloride Cancelled, Carbon Dioxide Cancelled, Anion Gap Cancelled, BUN Cancelled, Creatinine Cancelled, Estim Creat Clear Calc Cancelled, Est GFR (MDRD) Af Amer Cancelled, Est GFR (MDRD) Non-Af Cancelled, BUN/Creatinine Ratio Cancelled, Glucose Cancelled, Calcium Cancelled 08/13/24 06:50: WBC 7.3, RBC 3.94 L, Hgb 11.0 L, Hct 34.7 L, MCV 88.1, MCH 27.9, MCHC 31.7 L, RDW Std Deviation 45.3 H, RDW Coeff of Domonique 14.1, Plt Count 281, MPV 9.7, Immature Gran % (Auto) 0.700, Neut % (Auto) 64.0, Lymph % (Auto) 23.8, Hughes % (Auto) 8.9, Eos % (Auto) 2.1, Baso % (Auto) 0.5, Absolute Neuts (auto) 4.7, Absolute Lymphs (auto) 1.74, Nucleated RBC % 0, Sodium 142, Potassium 4.1, Chloride 108 H, Carbon Dioxide 33.0 H, Anion Gap 1 L, BUN 9, Creatinine 0.38 L, Estim Creat Clear Calc 227.22, Est GFR (MDRD) Af Amer 236, Est GFR (MDRD) Non-Af 195, BUN/Creatinine Ratio 23.5 H, Glucose 98, Calcium 8.4 L Charges/Coding Multi Select Codes Visit Charges Office Visit/Consults: 82109 IP Consult L4
[2024-08-13 15:00] VITALS: BP 112/65; PULSE 71; RESP 16; TEMP 36.7; O2SAT 95
[2024-08-13 21:00] VITALS: BP 128/87; PULSE 67; RESP 16; TEMP 36.8; O2SAT 96
[2024-08-13] MEDS: Ondansetron 4 MG/2 ML Vial IV (22:13)
[2024-08-14] VITALS (12 sets, daily range): BP systolic 99–125; BP diastolic 65–87; PULSE 63–97; RESP 12–18; TEMP 2.7–36.9; O2SAT 94–99; BMI 24.2
[2024-08-14] MEDS: Vancomycin IV 1,000 MG/200 ML BAG 200 MG IV ×3 (00:31→18:09)
[2024-08-14] MEDS: oxyCODONE 5 MG Tablet 10 MG PO ×4 (02:40→22:09)
[2024-08-14] MEDS: Lactobacillis Acidophilus 1 CAP PO ×2 (05:41→22:08)
[2024-08-14] MEDS: metroNIDAZOLE 500 MG Tablet PO ×3 (05:41→22:10)
[2024-08-14] MEDS: NORMAL SALINE 0.9% IV (05:42)
[2024-08-14] MEDS: CEFEPIME HCL IV (05:42)
[2024-08-14] MEDS: fentaNYL 100 MCG/2 ML Ampul 25 MCG IV ×3 (05:51→19:34)
[2024-08-14] MEDS: DULoxetine Hcl 60 MG Capsule 120 MG PO (09:41)
[2024-08-14] MEDS: Meloxicam 15 MG Tablet PO (09:41)
[2024-08-14] MEDS: Gabapentin 800 MG Tablet PO ×4 (09:41→22:10)
[2024-08-14] MEDS: Cilostazol 50 MG Tablet PO ×2 (09:41→22:10)
[2024-08-14] MEDS: Tolterodine Tartrate 2 MG CAP.SA PO (09:44)
[2024-08-14] MEDS: Baclofen 10 MG Tablet 20 MG PO ×4 (09:44→22:08)
--- NOTE | 2024-08-14 09:44 | WOUNDNOTE ---
Pt scheduled for surgery later today with Dr Barton.
[2024-08-14] MEDS: DAKIN'S SOL HALF STRENGTH (=0.25%) TOPICAL (10:00)
--- NOTE | 2024-08-14 10:03 | PCM.PN.ID ---
Physical Exam Narrative OR today, feeling ok, no fever, no n/v/d Const alert and no apparent distress General Appearance: cooperative Resp normal air movement and clear to auscultation bilaterally Cardio regular rate and regular rhythm GI soft to palpation, non-tender and non-distended Skin no rashes or lesions noted ID ID: Route of nutrition/ use of supplements: [] Nutritional Intake: [] IV Site: [] Charles Catheter: [] Assessment & Plan Assessment/Plan (1) Chronic paraplegia: (2) Infected decubitus ulcer: PLAN: Wound cx with enterococcus, MRSA. CT done. Ucx with enterobacter. OR planned. On vanc/cefepime/flagyl. will follow
--- NOTE | 2024-08-14 10:59 | PCM.PN.HOSP ---
Subjective Subjective Doing well, no issues overnight. Plan for surgical intervention today on her wound Objective Data Objective Data Vital Signs: Vital Signs Temp Pulse Resp BP Pulse Ox O2 Del Method 97.8 F 70 14 110/74 97 Room Air 08/14/24 09:47 08/14/24 09:47 08/14/24 09:47 08/14/24 09:47 08/14/24 09:47 08/14/24 10:24 Oxygen Delivery Method Room Air Weight: 183 lb 6.793 oz Body Mass Index (BMI) 24.2 Intake & Output: Intake and Output for Last 24 Hours 08/13/24 08/14/24 08/15/24 03:59 03:59 03:59 Intake Total 2170 / 2170 2070 / 2070 530 / 530 Output Total 4000 / 4000 4450 / 4450 1350 / 1350 Balance -1830 / -1830 -2380 / -2380 -820 / -820 Lab / Micro Data 08/13/24 06:50 08/13/24 06:50 Micro: Microbiology 08/08/24 22:26 Blood Culture (Wb) - Other Blood Culture - Final No growth in 5 days. 08/09/24 02:00 Wound - Sacral Gram Stain - Final 08/09/24 02:00 Wound - Sacral Wound Culture - Final Meth. resistant Staph. aureus Enterococcus faecalis 08/09/24 02:00 Wound - Sacral Skin and Soft Tissue MRSA/MSSA (PCR - Final Meth. resistant Staph. aureus 08/08/24 21:40 Urine, Catheterized Urine Culture - Final Enterobacter cloacae complex Physical Exam Narrative General: Alert, Oriented x3, Cooperative, No apparent distress HEENT: Atraumatic, PERRLA, EOMI, Normocephalic Oral: Moist Mucosa Neck: Supple, No JVD Lungs: Clear to auscultation, Normal air movement, No rhonchi, No wheeze, No rales Cardiovascular: Regular rate, Regular Rhythm, Normal S1, Normal S2, No murmurs Abdomen: Soft, Non Tender, Non-Distended, No Hepato-splenomegaly Extremities: No edema, Capillary Refill Less than 3 Seconds Skin: Decubitus ulcers currently dressed Musculoskeletal: No Tenderness to Palpation of Joints or Extremities Neurological: Bilateral lower extremity paraplegia from a previous epidural abscess. Upper extremities 5 out of 5 bilaterally Psych/Mental Status: Normal Affect, Appropriate Assessment & Plan Assessment/Plan (1) Complicated urinary tract infection: (2) Sacral decubitus ulcer, stage III: PLAN: Plan #1. Acutely Infected Worsening now stage III-IV (suspect undermined) pressure wound over the coccyx with periwound erythema concerning for acute cellulitis, possibly osteomyelitis (reported as Septic per ED physician as patient has leukocytosis, tachycardia and source with SBP < 90; however, she is chronically hypotensive, stable BP compared to her baseline, thus no obvious end organ damage, thus unable to state clearly that she has sepsis): Will admit to PCU given concurrent chronic hypotension, will maintain on judicious IV fluids, will obtain Wound Cx/Wound MRSA assessment, will initiate on cefepime and IV vancomycin based on most recent admission cultures w/ ID consultation if transition to [facility] is prolonged and de-escalation/change per their discretion, offload, wound RN consulted. 08/09/2024: Awaiting transfer to [facility] 08/10/2024: Awaiting transfer, continue with antibiotics, leukocytosis is improving. Cultures so far with MRSA as well as Enterococcus and her wounds and Enterobacter in her urine 08/11/2024: Improvement in pain with the increase in oxycodone from her wound. Continue with local wound care 08/12/2024: Awaiting transfer to [facility] 08/13/2024: Plastic surgery is available here will cancel transfer to [facility] Plan for debridement and wound VAC placement tomorrow or Sunday08/14/2024: Plan for surgical intervention today #2. Possible Complicated Urinary Tract Infection secondary to chronic indwelling suprapubic catheter versus chronic colonization: UA upon ED evaluation remarkable, pending UCx, continue judicious IVFs, monitor I/Os, continue IV vancomycin and cefepime based on previous cultures with noted most recent enterococcal infection w/ transition as able pending sensitivities and speciation. Infectious disease consulted. 08/10/2024: Enterobacter in her urine, sensitive to cefepime which she is already on #3. History of spinal abscess with resulting paraplegia, chronic decubitus ulcers/wounds requiring previous debridement, chronic neurogenic bladder with chronic suprapubic catheter: As long as BP tolerates will continue home Klonopin and gabapentin regimen, continue offloading, frequent positional changes, barrier cream, PT/OT/CM consultation for discharge planning. Verifying last snowden catheter change date as frequent UTI history. #4. Chronic anemia/iron deficiency anemia, currently normocytic, previously microcytic: Admission hemoglobin [], MCV [], baseline appears more recently 08-02, will continue to closely monitor and repeat CBC in the AM, encourage continued outpatient follow-up as has previously been administered IV Fe. #5. Chronic hypotension: Patient with chronic hypotension/orthostasis, will maintain on Florinef and midodrine. #6. History of polysubstance abuse, history of IV drug abuse with Hepatitis C: Encourage continued outpatient follow-up with infectious disease, encourage continued clean status, UDS pending upon admission. #7. Anxiety and depression: We will continue patient home Cymbalta and Klonopin regimen and continue to encourage outpatient follow-up/counseling as previously arranged. #8. History of VTE: Not chronically anticoagulated, will maintain on chemoprophylaxis as noted #9. Tobacco Abuse: Encouraged cessation, inpatient consultation per RT, NR if desired. #10. History of Clostridium C. difficile colitis: Given antibiotic usage will maintain on lactobacillus regimen. DVT: Lovenox Charges/Coding Visit Charges Inpatient E&M: 24811 Subs Hosp L2
--- NOTE | 2024-08-14 11:35 | NS ---
08/14/24: RN told RDN that pt dislikes Jake. Will discontinue Jake and continue Ensure Compact at breakfast for additional protein. Natalie Smiley RDN, LD
[2024-08-14] MEDS: 0.9% Saline Lock 10 ML Syringe IV (13:06)
[2024-08-14] MEDS: Ondansetron 4 MG/2 ML Vial IV (13:06)
--- NOTE | 2024-08-14 13:34 | PRE.ANES_ITS ---
ASA Classification* ASA Classification ASA Classification: 3 and E Assessment & Plan Anesthesia* Anesthesia Assessment Anesthesia Assessment: Discussed sedation and/or anesthesia options, risks, benefits, and alternatives with patient/parents/legal guardian/POA. Questions invited. The patient/parents/legal guardian/POA seems to understand and agrees to proceed with anesthesia plan. Reviewed the physical assessment, medical history, allergy history and patient home medications list prior to surgery/procedure/anesthetic and documented any changes. Performed airway and anesthesia risk assessments. Anesthesia Type Anesthesia Type: General (see written pre anesthesia record for full assessment) Anesthesia Focused Assessment* Temperature: 97.8 F Pulse Rate: 85 Blood Pressure: 108/72 Respiratory Rate: 16 Pulse Ox: 99 Airway Assessment Mouth opens: >3 cm Mallampati Score: II Focused Labs Anesthesia Preop lab: CBC WBC 7.3 K/mm3 (4.4-11.0) 08/13/24 06:50 RBC 3.94 M/mm3 (4.2-5.4) L 08/13/24 06:50 Hgb 11.0 g/dL (12.0-15.0) L 08/13/24 06:50 Hct 34.7 % (37-47) L 08/13/24 06:50 Plt Count 281 K/mm3 (150-450) 08/13/24 06:50 CHEMISTRY Potassium 4.1 mmol/L (3.5-5.1) 08/13/24 06:50 Sodium 142 mmol/L (136-145) 08/13/24 06:50 Magnesium 1.8 mg/dL (1.6-2.6) 08/11/24 05:37 Phosphorus 3.2 mg/dL (2.5-4.9) 08/08/24 22:26 BUN 9 mg/dL (7-18) 08/13/24 06:50 Creatinine 0.38 mg/dL (0.55-1.02) L 08/13/24 06:50 Glucose 98 mg/dL (74-106) 08/13/24 06:50 COAG PT 14.3 SECONDS (11.7-14.9) 08/08/24 22:26 HCG, Quant < 1 mIU/mL (<9 non-preg) 10/02/12 13:45 Urine Test Negative Negative 05/25/15 14:30 Pre-Assessment Diagnosis/Proposed Procedure Planned Operative Procedure(s): sacral I and D Anesthesia History Anesthesia History - aix administrator: Anesthesia History - aix administrator Hx Hospitalization No 06/29/20 15:11 Any Problems With Anesthesia No 08/14/24 10:01 Cholinesterase deficiency No 08/14/24 10:01 You/Your Family Experience No 08/14/24 10:01 fever (hyperthermia) with Relationship Recent Exposure to Contagious Yes: mrsa in wound 08/14/24 10:01 Disease Does patient have nerve No 08/14/24 10:01 stimulator Patient instructed to have device shut off --Does patient have Pacemaker No 08/14/24 10:05 or ICD? When Was Last Pacemaker Check QUESTION #4 FULL TEXT: You/Your Family Experience fever (hyperthermia) with Anesthesia Last Oral Intake Last Oral intake: Last Oral Intake NPO since 00:00 08/14/24 10:05 Meds taken in AM with sips of Yes 08/14/24 10:05 water? Meds patient instructed to take am of surgery PONV PONV - aix administrator: PONV - aix administrator Female HX of Motion Sickness HX of N/V After Surgery Non-Smoker Duration of Surgery greater than 60 minutes Number of Risk Factors PONV Score Height & Weight Height & Weight: Anesthesia: Height & Weight Height 6 ft 1 in 08/14/24 10:05 Weight: 83.2 kg 08/14/24 10:05 Body Mass Index (BMI) 24.2 08/14/24 10:05 Respiratory Assessment Respiratory Assessment - aix administrator: Respiratory Tract Infection Hx - aix administrator Hx Respiratory Tract Infection No 08/14/24 10:01 STOP Sleep Apnea STOP Sleep Apnea - aix administrator: STOP Sleep Apnea - aix administrator Hx Hypertension No 08/09/24 11:02 Hx Sleep Apnea No 08/09/24 00:52 CPAP BIPAP Do you snore loudly (louder No 08/09/24 00:52 than talking or can be heard Do you often feel tired/ No 08/09/24 00:52 fatigued/ sleepy during daytime? Has anyone observed you stop No 08/09/24 00:52 breathing during sleep? STOP Results Negative 08/09/24 00:52 QUESTION #5 FULL TEXT : Do you snore loudly (louder than talking or can be heard through closed doors)? Tobacco Use History Tobacco Use History - aix administrator: Tobacco Use History - aix administrator Tobacco Use Cigarettes 06/30/20 07:28 Smoking Status Light Smoker (<10/day) 08/10/24 05:37 Hx Tobacco Use Yes 08/09/24 00:52 Years Smoking Packs Smoked per Day Smoking Cessation Date was within the last 15 years Hx Smoking Cessation Date Hx Smoking Cessation No 08/09/24 00:52 Counseling Hematologic Medial History Hematologic Hx - aix administrator: Hematologic Medical Hx - preassembler printed circuit board Hx of Blood Transfusion No 08/09/24 00:52 Hx of Transfusion in last 3 No 08/09/24 00:52 Months Date of Last Transfusion (if within last 3 months) Ever experience any problems No 08/09/24 00:52 with transfusion(s)? Specify any problems Hx of Preganancy in last 3 No 08/09/24 00:52 Months Nurse Filling Out Transfusion ASWAIN 08/09/24 00:52 & Questions: Date: 08/09/24 08/09/24 00:52 Time: 02:13 08/09/24 00:52 Patient unable to answer at this time (ie. confused, unrespo /Reproduction History /Reproductive History - aix administrator: /Reproductive Hx- aix administrator Hx Now No 08/14/24 10:01 Gestational Age (in weeks): EDC: Hx Hx Para Hx Section SAB No 08/09/24 00:52 Active Medications Active Medications: Current Medications Generic Name Dose Route Start Last Admin Trade Name Freq PRN Reason Stop Dose Admin Acetaminophen 650 mg 08/09/24 00:51 08/13/24 03:11 Acetaminophen 325 Mg Tablet PO 650 mg Q4H PRN PRN Administration Fever, pain 1-07/31 Al Hydroxide/Mg Hydroxide 30 ml 08/09/24 00:51 Mag Hydrox/Al Hydrox/Simeth 30 Ml Udc PO Q6H PRN PRN Gastric Burning Albuterol Sulfate 2.5 mg 08/09/24 00:51 Albuterol 2.5 Mg/3 Ml Vial.Neb. INHALATION Q2H PRN PRN Dyspnea, wheezing Ascorbic Acid 500 mg 08/10/24 10:00 08/12/24 10:39 Ascorbic Acid 500 Mg Tablet PO 500 mg QODAY CASSIUS Administration Baclofen 20 mg 08/09/24 10:00 08/14/24 13:05 Baclofen 10 Mg Tablet PO 20 mg 4X/DAY CASSIUS Administration Cilostazol 50 mg 08/09/24 10:00 08/14/24 09:41 Cilostazol 50 Mg Tablet PO 50 mg BID CASSIUS Administration Clonazepam 0.5 mg 08/09/24 00:51 08/12/24 10:50 Clonazepam 0.5 Mg Tablet PO 0.5 mg TID PRN PRN Administration Anxiety Duloxetine HCl 120 mg 08/09/24 10:00 08/14/24 09:41 Duloxetine Hcl 60 Mg Capsule PO 120 mg DAILY [facility] Administration Enoxaparin Sodium 40 mg 08/09/24 10:00 08/14/24 09:45 Enoxaparin 40 Mg/0.4 Ml Syringe SC Not Given DAILY [facility] Fentanyl Citrate 25 mcg 08/09/24 00:51 08/14/24 09:54 Fentanyl 100 Mcg/2 Ml Ampul IV 25 mcg Q3H PRN PRN Administration severe pain 6-10 Ferrous Sulfate 325 mg 08/10/24 08:00 08/12/24 10:39 Ferrous Sulfate 325 Mg Tablet PO 325 mg Q48H [facility] Administration Fludrocortisone Acetate 0.05 mg 08/09/24 08:00 08/14/24 09:43 Fludrocortisone Acetate 0.1 Mg Tablet PO Not Given BREAKFAST [facility] Gabapentin 800 mg 08/09/24 10:00 08/14/24 13:05 Gabapentin 800 Mg Tablet PO 800 mg 4X/DAY [facility] Administration Guaifenesin 20 ml 08/09/24 00:51 Guaifenesin 10 Ml Udc (200mg/10ml) PO Q4H PRN PRN COUGH Vancomycin IV-PHARMACY TO DOSE 500 mls @ 250 mls/hr 08/09/24 00:51 1 each/ Sodium Chloride IV X1 PRN Rx to Dose Protocol Vancomycin HCl 1,000 mg in 200 mls @ 200 mls/hr 08/09/24 08:30 08/14/24 10:40 Vancomycin IV Infused Q8H [facility] Infusion Cefepime HCl 2 gm/ Sodium 100 mls @ 100 mls/hr 08/14/24 14:00 Chloride IV Q8 CASSIUS Melatonin 3 mg 08/09/24 00:51 Melatonin 3 Mg Tablet PO QHS PRN PRN INSOMNIA Meloxicam 15 mg 10/19/24 10:00 08/14/24 09:41 Meloxicam 15 Mg Tablet PO 15 mg DAILY CASSIUS Administration Metronidazole 500 mg 08/12/24 14:00 08/14/24 13:06 Metronidazole 500 Mg Tablet PO 500 mg TID CASSIUS Administration Midodrine 10 mg 08/09/24 08:00 08/14/24 12:56 Midodrine Hcl 5 Mg Tablet PO Not Given TIDCM [facility] Nicotine 7 mg 08/09/24 00:51 Nicotine 7 Mg Patch TD DAILY PRN PRN nicotine craving Ondansetron HCl 4 mg 08/09/24 00:51 08/14/24 13:06 Ondansetron 4 Mg/2 Ml Vial IV 4 mg Q8H PRN PRN Administration NAUSEA/VOMITING Oxycodone HCl 10 mg 08/10/24 16:11 08/14/24 13:05 Oxycodone 5 Mg Tablet PO 10 mg Q4H PRN PRN Administration Pain Score 4-10 Prochlorperazine Edisylate 5 mg 08/09/24 00:51 Prochlorperazine 10 Mg/2 Ml Vial IV Q4H PRN PRN Breakthrough Nausea/Vomiting Senna/Docusate Sodium 2 tablet 08/09/24 00:51 Senna/Docusate Sodium 1 Tablet PO BID PRN PRN Constipation Sodium Chloride 10 - 40 ml 08/09/24 02:41 08/14/24 13:06 0.9% Saline Lock 10 Ml Syringe IV 20 ml UD PRN Administration SALINE FLUSH Sodium Hypochlorite 0 ml 08/12/24 10:00 08/14/24 10:00 Dakin's Esme Half Strength (=0.25%) TOPICAL 1 applic DAILY [facility] Administration Protocol Tolterodine Tartrate 2 mg 08/09/24 10:00 08/14/24 09:44 Tolterodine Tartrate 2 Mg Cap.Sa PO 2 mg DAILY [facility] Administration Vancomycin Protocol 1 lab 08/15/24 22:00 Vancomycin Trough/Random Due MC 08/16/24 02:00 DAILY [facility] Medical History MRSA (methicillin resistant staph aureus) culture positive Decubitus ulcer of sacral region, stage 2 Sacral wound Ovarian cyst Hepatitis C Kidney stones Chronic indwelling Charles catheter DVT (deep venous thrombosis) Paraplegia Spinal abscess Neurogenic bladder Anxiety and depression Chronic hypotension History of intravenous drug abuse Esophageal reflux Home Medications ?Medication ?Instructions ?Recorded ?Last Taken ?Type baclofen 20 mg tablet 20 mg PO 4X/DAY muscle spasm 10/19/19 03/31/24 History duloxetine 60 mg capsule,delayed 120 mg PO DAILY depression 10/19/19 03/31/24 History release oxybutynin chloride 10 mg 10 mg PO DAILY bladder 12/24/19 03/31/24 History tablet,extended release 24 hr clonazepam 0.5 mg tablet 0.5 mg PO TID PRN Anxiety #9 tabs 07/05/20 05/20/23 Rx cilostazol 50 mg tablet 50 mg PO BID antiplatelet 08/15/22 03/31/24 History meloxicam 15 mg tablet 15 mg PO DAILY spasms 08/15/22 05/20/23 History ferrous sulfate 325 mg (65 mg 325 mg PO QODAY 03/27/24 03/30/24 History iron) tablet (FeroSul) gabapentin 800 mg tablet 800 mg PO 4X/DAY 03/31/24 03/31/24 History nystatin 100,000 unit/gram topical 1 applic topical PRN PRN skin 03/31/24 Unknown History cream irritation sodium chloride 0.9 % irrigation 1 irrig irrigation UD 03/31/24 03/31/24 History solution ascorbate calcium (vitamin C) 500 500 mg PO QODAY 08/08/24 Unknown History mg tablet Allergy/AdvReac Type Severity Reaction Status Date / Time Penicillins AdvReac PT UNSURE Verified 08/08/24 20:10 OF REACTION Family History Mother Multiple sclerosis Family History other Surgical History History of surgery on lower extremity S/P debridement History of suprapubic catheter Hx of spinal surgery Social History (Updated 08/14/24 @ 10:03 by Chelsea Pond) household members: none housing: house Smoking Status: Light Smoker (<10/day) alcohol intake: current Alcohol type: other substance use type: former substance user Date of last use: Prior history of IV drug abuse with heroin and methamphetamine. Review of Systems (Anesthesia) ROS Narrative System reviewed and no additional complaints, except as documented.
[2024-08-14] MEDS: Cefepime HCl 2 GM in 0.9% Normal Saline (100mL MB+) 100 ML IV ×2 (14:13→22:10)
[2024-08-14] MEDS: Lactated Ringers 1,000 ML 15 ML IV (14:15)
--- NOTE | 2024-08-14 14:30 | BONBX_PTH ---
PATIENT: ROGELIO MARRERO LOC: [facility] U#:[id number] AGE/SX: 44/F ROOM: [facility] RE08/08/[address]: Dr. Armando Quinones MD : [id number] BED: 1 DIS: 08/19/2024 SPEC #: [id number] RECD: 08/14/24 18:09 STATUS: LIANET GARCIA #: [id number] KATIUSKA: 08/14/24 14:[address]: Pradeep Barton DEPT: SURGICAL PATHOLOGY RECD BY: Manny Smith ENTERED: 08/15/24 07:43 SP TYPE: Bone OTHR DR: MD Dr. Qamar Erickson MD Dr. Nicholas F Kotsonis, MD Dr. Robert Leininger, MD Tissues: A - Sacral region B - Sacral region Procedures: Decalcification bone/plaque Surgery Specimen Level IV Surgery Specimen Level V HEADER OPERATION: Debridement sacral wound and bone biopsy PRE-OP DIAGNOSIS: Decubitus ulcer of sacral region, stage 4 TISSUE SUBMITTED: A- Sacral ulcer tissue- rule out malignancy, B- Sacral bone biopsy MICROSCOPIC DIAGNOSIS A. Sacral ulcer tissue, excision: Extensive ulceration, acute and chronic inflammation and granulation tissue reaction. B. Sacral bone, biopsy: A piece of bone with acute and chronic osteomyelitis. / 08/18/2024 MICROSCOPIC DESCRIPTION Slides are reviewed. GROSS DESCRIPTION A. Received in fixative is one container labeled with the patient's name and designated Sacral ulcer tissue. The specimen consists of three irregular fragments of pink-gaming skin with attached soft tissue ranging in size from 3.0 to 6.0cm. No orientation is provided. Serial sections do not reveal mass lesions. Absorption Plant Operator Helper sections are submitted in three cassettes. B. Received in fixative is one container labeled with the patient's name and designated Sacral bone biopsy. The specimen consists of a single irregular fragment of gaming bone measuring 0.8 x 0.7 x 0.6cm. The specimen is submitted in its entirety in one cassette after decalcification. 08/15/2024 TC:2 CPT:01479f9,29230
--- NOTE | 2024-08-14 15:47 | HP.PCM.SX_ITS ---
HPI - General General Date of Admission: 08/08/24 Chief Complaint: Fever, headache, increased drainage from sacral wound, increased pain x 1 week. HPI Narrative ROGELIO MARRERO, is a 44 F who presents with sacral wound. Current Encounter (DATE OF SURGERY H&P UPDATE): I saw and examined the patient this morning in pre-operative holding. We discussed risks and benefits of today's surgery and they would like to proceed. NO CHANGE in health history since last seen and evaluated. Ready to proceed with surgery. COUNTS INCLUDE 234 BEDS AT THE [facility] Medical History MRSA (methicillin resistant staph aureus) culture positive Decubitus ulcer of sacral region, stage 2 Sacral wound Ovarian cyst Hepatitis C Kidney stones Chronic indwelling Charles catheter DVT (deep venous thrombosis) Paraplegia Spinal abscess Neurogenic bladder Anxiety and depression Chronic hypotension History of intravenous drug abuse Esophageal reflux Home Medications ?Medication ?Instructions ?Recorded ?Last Taken ?Type baclofen 20 mg tablet 20 mg PO 4X/DAY muscle spasm 10/19/19 03/31/24 History duloxetine 60 mg capsule,delayed 120 mg PO DAILY depression 10/19/19 03/31/24 History release oxybutynin chloride 10 mg 10 mg PO DAILY bladder 12/24/19 03/31/24 History tablet,extended release 24 hr clonazepam 0.5 mg tablet 0.5 mg PO TID PRN Anxiety #9 tabs 07/05/20 05/20/23 Rx cilostazol 50 mg tablet 50 mg PO BID antiplatelet 08/15/22 03/31/24 History meloxicam 15 mg tablet 15 mg PO DAILY spasms 08/15/22 05/20/23 History ferrous sulfate 325 mg (65 mg 325 mg PO QODAY 03/27/24 03/30/24 History iron) tablet (FeroSul) gabapentin 800 mg tablet 800 mg PO 4X/DAY 03/31/24 03/31/24 History nystatin 100,000 unit/gram topical 1 applic topical PRN PRN skin 03/31/24 Unknown History cream irritation sodium chloride 0.9 % irrigation 1 irrig irrigation UD 03/31/24 03/31/24 History solution ascorbate calcium (vitamin C) 500 500 mg PO QODAY 08/08/24 Unknown History mg tablet Allergy/AdvReac Type Severity Reaction Status Date / Time Penicillins AdvReac PT UNSURE Verified 08/08/24 20:10 OF REACTION Family History Mother Multiple sclerosis Family History other Surgical History History of surgery on lower extremity S/P debridement History of suprapubic catheter Hx of spinal surgery Social History (Updated 08/14/24 @ 10:03 by Chelsea Pond) household members: none housing: house Smoking Status: Light Smoker (<10/day) alcohol intake: current Alcohol type: other substance use type: former substance user Date of last use: Prior history of IV drug abuse with heroin and methamphetamine. Vital Signs Vital Signs Vital Signs: 08/13/24 21:00 08/13/24 22:00 08/14/24 03:00 Temperature 98.2 F 36.9 F L Temperature Source Oral Temporal Pulse Rate 67 72 Respiratory Rate 16 18 Respiratory Effort Normal Respiratory Depth Normal Respiratory Pattern Normal Blood Pressure 128/87 H 103/73 Blood Pressure Mean 100 83 Blood Pressure Source Monitor Monitor Blood Pressure Position Semi-Fowlers Semi-Fowlers Blood Pressure Location Right Arm Right Arm Pulse Ox 96 95 Oxygen Delivery Method Room Air Room Air Room Air 08/14/24 04:06 08/14/24 09:47 08/14/24 10:24 Temperature 97.8 F Temperature Source Temporal Pulse Rate 70 Respiratory Rate 14 Respiratory Effort Normal Normal Non-Labored Respiratory Depth Normal Normal Respiratory Pattern Normal Normal Blood Pressure 110/74 Blood Pressure Mean 86 Blood Pressure Source Monitor Blood Pressure Position Semi-Fowlers Blood Pressure Location Right Arm Pulse Ox 97 Oxygen Delivery Method Room Air Room Air Room Air 08/14/24 12:52 08/14/24 13:34 Temperature 97.8 F 97.8 F Temperature Source Temporal Pulse Rate 85 85 Respiratory Rate 16 16 Respiratory Effort Respiratory Depth Respiratory Pattern Blood Pressure 108/72 108/72 Blood Pressure Mean 84 Blood Pressure Source Monitor Blood Pressure Position Semi-Fowlers Blood Pressure Location Right Arm Pulse Ox 99 99 Oxygen Delivery Method Room Air Weight Weight: 183 lb 6.793 oz Body Mass Index (BMI) 24.2 Physical Exam Narrative Patient seen and examined today with the wound care nursing staff She has a stage IV sacral decubitus ulcer. There is exposed bone at the base of the superior ulcer but the inferior ulcer is unstageable with necrotic tissue. The wounds connect through a small skin bridge and undermined inferiorly and laterally. There are no fluid collections and no signs of acute infection at this time. The wound measures approximately 10 x 8 cm. Const alert and oriented x3 Results Lab / Micro Data 08/13/24 06:50 08/13/24 06:50 Micro: Microbiology 08/08/24 22:26 Blood Culture (Wb) - Other Blood Culture - Final No growth in 5 days. Assessment & Plan Assessment/Plan (1) Decubitus ulcer of sacral region, stage 4: PLAN: I talked the patient extensively about the risks of surgery, including bleeding, infection, damage to surrounding structures, surgical site dehiscence and wound formation, need for wound care, need for repeat operations, failure to obtain the desired result, DVT/PE, and the risks of anesthesia including . The benefits and alternatives of this surgery were also discussed. All of their questions were answered, and they agreed to proceed with surgery. INTERVAL H&P PLAN, DATE OF SURGERY: We will proceed with surgery today (EXCISION OF SACRAL ULCER)
[2024-08-14] MEDS: Bupiv/Epi 0.25% 30 ML Vial (16:30)
[2024-08-14] MEDS: Sodium Hypochlorite (Dakin's) 0.125% Wound Irrigation IRRIGATION (16:30)
--- NOTE | 2024-08-14 16:52 | PCM.POST.ANE ---
Anesthesia: Postop Eval I Current Vital Signs Temperature: 97.3 F Pulse Rate: 88 Blood Pressure: 125/79 Respiratory Rate: 16 Pulse Ox: 99 Oxygen Delivery Method: Room Air Assessment Airway patent: Yes Spontaneous unlabored respirations: Yes Mental status: Asleep nausea: No Vomiting: No Anesthesia Complication: No Fluid Hydration Crystalloid volume administer (ml): 900 Total IV fluid infused: 900 Progress Note Anesthesia document: Postop Eval 1 completed: Yes
--- NOTE | 2024-08-14 17:10 | PCM.OPRPT ---
Operative Report (Standard) Operative Information Surgery/Procedure Performed: PROCEDURE PERFORMED: 1) Excision of necrotic sacral ulcer down to bone, 9 x7 cm (CPT 15839, 46547 X 3) 2) Biopsy of the sacral bone, CPT 60823 3) Placement of non-disposable irrigating wound VAC, CPT 88431 Surgeon: Pradeep Barton Date of Procedure: 08/14/24 Procedure Start Time: 16:12 Procedure Stop Time: 16:32 Pre-Operative Diagnosis: Sacral pressure sore Post-Operative Diagnosis: same Select all DRAINS/GRAFTS/IMPLANTS that apply: None Type of Anesthesia: General/Supplemental (20 cc of 0.25 % Marcaine with epi 1:200,000 ) Estimated Blood Loss: 20 cc Fluids Replaced: 900 cc LR Specimen collected: Yes Description of specimen(s) removed: Ulcer to path, bone to path, deep soft tissue and deep bone cultures (4 specimens) Description of surgery: PROCEDURE PERFORMED: 1) Excision of necrotic sacral ulcer down to bone, 9 x7 cm (CPT 39150, 76026 X 3) 2) Biopsy of the sacral bone, CPT 92402 3) Placement of non-disposable irrigating wound VAC, CPT 35998 INDICATIONS: Patient is a 44-year-old female who is paraplegic secondary to an abscess on her spine from 5 years ago. Presents today for excision of the ulcer. She was admitted for infection from the sacral ulcer this week and there is significant necrotic debris. She understands the risk benefits and alternatives of the procedure and wanted to proceed. OPERATIVE DETAILS: Patient was correctly identified in preoperative holding and taken back to the operating room where she was administered general anesthesia and prepped and draped in sterile fashion after she was placed in the prone position with all bony prominences padded and her face and eyes protected. A proper timeout was performed. 20 cc of local was injected in the field and then the procedure was began with excision of a 9 x 8 cm ulcer with a 10 blade scalpel and a rongeur down to necrotic dermis, subcutaneous fat, fascia, muscle, and bone. The ulcer was sent for pathologic examination as well as a sample of the bone to rule out osteo. The bone was also cultured and there was a deep soft tissue culture also taken. Hemostasis was obtained with Bovie electrocautery and the wound was irrigated with 900 cc of Irrisept. An irrigating nondisposable wound VAC was then placed greater than 50 cm? (vera flow wound VAC) and we began irrigation with Dakin's. The patient tolerated the procedure well. She was flipped back and the supine position to be extubated and then pressure offloaded on her side and her pressure offloading bed. ASA: 3 Antibiotics from the floor were used as perioperative antibiotics (ceftriaxone and vancomycin) POST-OPERATIVE PLAN: Continue irrigating wound VAC until Sunday, 18 August 2024, will we will change the wound VAC. Surgical Findings: Necrotic tissue at the base of the wound including some necrotic bone that was sampled Automobile Washer Steam washing machine loader: Yes Informatics Application Analyst: Felipe Angeles Tasks completed by speech language pathology assistant: Opening and Retracting Complications Complications: No Admit VTE Documentation VTE Mechan Device Prophylaxis: SCD's
[2024-08-14] MEDS: Ferrous Sulfate 325 MG Tablet PO (18:08)
[2024-08-14] MEDS: Acetaminophen 325 MG Tablet 650 MG PO (22:09)
[2024-08-15] VITALS (7 sets, daily range): BP systolic 93–109; BP diastolic 53–75; PULSE 58–84; RESP 15–18; TEMP 35.9–37.1; O2SAT 95–99; BMI 24.1
--- NOTE | 2024-08-15 01:07 | PCM.POSTANE2 ---
Anesthesia Postop Eval I Sum Postop Eval Completion status Anesthesia document: Postop Eval 1 completed: Yes Anesthesia Postop Eval I Summary Anesthesia Postop Eval I Summary: Anesthesia Postop Eval I: Assessment Summary Airway patent Yes 08/14/24 16:54 [email or web address] SALES [email or web address] Spontaneous unlabored Yes 08/14/24 16:54 APPAREL SALES [email or web address] respirations Mental status Asleep 08/14/24 16:54 [email or web address] SALES [email or web address] nausea No 08/14/24 16:54 APPAREL SALES [email or web address] Vomiting No 08/14/24 16:54 APPAREL [email or web address] Anesthesia Postop Eval I: Fluid Summary Crystalloid volume administer 900 08/14/24 16:54 APPAREL [email or web address] (ml) Colloids volume administered ( ml) Blood Product volume administered (ml) Total IV fluid infused 900 08/14/24 16:54 APPAREL SALES [email or web address] Anesthesia Postop Eval I: Summary Notes Anesthesia Complication No 08/14/24 16:54 APPAREL SALES [email or web address] Anesthesia Complication Comment: Post-operative progress note Anesthesia: Postop Eval II Evaluation Mental status: Awake and Calm Pain Level: 0 nausea: No Vomiting: No Complications Anesthesia Complication: No
--- NOTE | 2024-08-15 01:07 | POSTOPAN2_ITS ---
Anesthesia Postop Eval I Sum Postop Eval Completion status Anesthesia document: Postop Eval 1 completed: Yes Anesthesia Postop Eval I Summary Anesthesia Postop Eval I Summary: Anesthesia Postop Eval I: Assessment Summary Airway patent Yes 08/14/24 16:54 [email or web address] [email or web address] Spontaneous unlabored Yes 08/14/24 16:54 [email or web address] [email or web address] respirations Mental status Asleep 08/14/24 16:54 [email or web address] nausea No 08/14/24 16:54 [email or web address] [email or web address] Vomiting No 08/14/24 16:54 [email or web address] [email or web address] Anesthesia Postop Eval I: Fluid Summary Crystalloid volume administer 900 08/14/24 16:54 [email or web address] [email or web address] (ml) Colloids volume administered ( ml) Blood Product volume administered (ml) Total IV fluid infused 900 08/14/24 16:54 [email or web address] [email or web address] Anesthesia Postop Eval I: Summary Notes Anesthesia Complication No 08/14/24 16:54 [email or web address] Anesthesia Complication Comment: Post-operative progress note Anesthesia: Postop Eval II Evaluation Mental status: Awake and Calm Pain Level: 0 nausea: No Vomiting: No Complications Anesthesia Complication: No
[2024-08-15] MEDS: Vancomycin IV 1,000 MG/200 ML BAG 200 MG IV ×2 (01:28→11:01)
[2024-08-15] MEDS: fentaNYL 100 MCG/2 ML Ampul 25 MCG IV ×2 (01:32→05:03)
[2024-08-15] MEDS: 0.9% Saline Lock 10 ML Syringe IV ×3 (01:32→22:17)
[2024-08-15] MEDS: oxyCODONE 5 MG Tablet 10 MG PO ×5 (02:19→22:24)
[2024-08-15] MEDS: clonazePAM 0.5 MG Tablet PO ×2 (02:20→22:24)
[2024-08-15 05:41] LABS: Absolute Lymphocyte Count 1.77 X10^3/uL (0.83-4.51); Basophil# 0.06 X10^3/uL; Basophil% 0.3 % (0-1); Eosinophil# 0.01 X10^3/uL; Eosinophils% 0.1 % (0-5); Hematocrit 36.3 % (37-47); Hemoglobin 11.5 g/dL (12.0-15.0); Lymphocyte # 1.77 X10^3/ul (0.83-4.51); Mean Corp Hgb Conc 31.7 g/dL (32-36); Mean Corpuscular Hgb 27.5 pg (27.0-32.0); Mean Corpuscular Volume 86.8 fL (81-99); Mean Platelet Vol. 9.5 fl (6.2-12.0); Monocyte# 0.78 X10^3/uL; Monocyte% 4.4 % (0-10); NRBC Flagged by Analyzer 0 % (0-5); Neutrophil % 84.3 % (47-70); Platelet Count 391 K/mm3 (150-450); RBC Distribution Width CV 14.1 % (11.6-14.6); RBC Distribution Width SD 45.3 fl (35.1-43.9); Red Blood Count 4.18 M/mm3 (4.2-5.4); White Blood Count 17.8 K/mm3 (4.4-11.0)
[2024-08-15 06:20] LABS: Anion Gap 2 (5-15); BUN 8 mg/dL (7-18); BUN/Creat Ratio 22.7 RATIO (10-20); Calcium,Total 8.7 mg/dL (8.5-10.1); Chloride 107 mmol/L (98-107); Creatinine, Serum 0.35 mg/dL (0.55-1.02); EST Glomerular Filtration Rate 215 mL/min (>60); Est Glom Filt Rate - Afr Amer 260 mL/min (>60); Glucose 109 mg/dL (74-106); Sodium Level 140 mmol/L (136-145)
[2024-08-15] MEDS: metroNIDAZOLE 500 MG Tablet PO ×3 (06:20→22:27)
[2024-08-15] MEDS: Lactobacillis Acidophilus 1 CAP PO ×3 (06:20→22:25)
[2024-08-15] MEDS: Cefepime HCl 2 GM in 0.9% Normal Saline (100mL MB+) 100 ML IV ×3 (06:20→22:16)
--- NOTE | 2024-08-15 07:04 | PN.SURG_ITS ---
Subjective Subjective Seen and examined this morning. No acute issues other than the VAC is beeping 2/2 poor seal in one location. Still sucked down, hoever. Objective Data Objective Data Vital Signs: Vital Signs Temp Pulse Resp BP Pulse Ox O2 Del Method 98 F 58 L 16 109/75 97 Room Air 08/15/24 05:40 08/15/24 05:40 08/15/24 05:40 08/15/24 05:40 08/15/24 05:40 08/15/24 05:40 Oxygen Delivery Method Room Air Weight: 183 lb 3.266 oz Body Mass Index (BMI) 24.1 Intake & Output: Intake and Output for Last 24 Hours 08/13/24 08/14/24 08/15/24 23:59 23:59 23:59 Intake Total 2070 / 2550 2555 / 2915 920 / 920 Output Total 3350 / 5250 4000 / 5000 1600 / 1600 Balance -1280 / -2700 -1445 / -2085 -680 / -680 Lab / Micro Data 08/15/24 05:14 08/15/24 05:14 Labs: Laboratory Results - last 24 hr 08/15/24 05:14: WBC 17.8 H, RBC 4.18 L, Hgb 11.5 L, Hct 36.3 L, MCV 86.8, MCH 27.5, MCHC 31.7 L, RDW Std Deviation 45.3 H, RDW Coeff of Domonique 14.1, Plt Count 391, MPV 9.5, Immature Gran % (Auto) 0.900, Neut % (Auto) 84.3 H, Lymph % (Auto) 10.0 L, [place] % (Auto) 4.4, Eos % (Auto) 0.1, Baso % (Auto) 0.3, Absolute Neuts (auto) 15.0 H, Absolute Lymphs (auto) 1.77, Nucleated RBC % 0, Sodium 140, Potassium 4.0, Chloride 107, Carbon Dioxide 31.0, Anion Gap 2 L, BUN 8, C reatinine 0.35 L, Estim Creat Clear Calc 246.70, Est GFR (MDRD) Af Amer 260, Est GFR (MDRD) Non-Af 215, BUN/Creatinine Ratio 22.7 H, Glucose 109 H, Calcium 8.7 Micro: Microbiology 08/08/24 22:26 Blood Culture (Wb) - Other Blood Culture - Final No growth in 5 days. 08/09/24 02:00 Wound - Sacral Gram Stain - Final 08/09/24 02:00 Wound - Sacral Wound Culture - Final Meth. resistant Staph. aureus Enterococcus faecalis 08/09/24 02:00 Wound - Sacral Skin and Soft Tissue MRSA/MSSA (PCR - Final Meth. resistant Staph. aureus 08/08/24 21:40 Urine, Catheterized Urine Culture - Final Enterobacter cloacae complex Physical Exam Narrative No blood in the VAC. Sponge sucked down and adherent. Need reinforcement for better seal with the VeraFlow. Const alert and oriented x3 HEENT normocephalic Eyes EOMs intact bilaterally Resp Resp Narrative: 1500 on IS this morning Cardio regular rate Assessment & Plan Assessment/Plan (1) Decubitus ulcer of sacral region, stage 4: PLAN: Plan to re-patch Veraflow VAC this morning Continue irrigation with Dakins on current settings through the weekend. Agree with nutrition consultation, and planning for home pressure offloading bed and three times per week VAC changes. Plan for removal of VeraFlow VAC on Sunday, 18 Aug 2024, with placement of regular VAC. I can then follow up with her weekly at the wound care center.
--- NOTE | 2024-08-15 08:23 | WOUNDNOTE ---
wound photo: sacrum
--- NOTE | 2024-08-15 09:52 | WOUNDNOTE ---
Home VAC paperwork started. pt will be in the hospital over the weekend. possible discharge early next week.
--- NOTE | 2024-08-15 10:04 | PCM.PN.ID ---
Physical Exam Narrative Feeling ok today, no fever, no nausea Const alert and no apparent distress General Appearance: cooperative Resp normal air movement and clear to auscultation bilaterally Cardio regular rate and regular rhythm GI soft to palpation, non-tender and non-distended Skin Skin Narrative: dressing in place ID ID: Route of nutrition/ use of supplements: [] Nutritional Intake: [] IV Site: [] Charles Catheter: [] Assessment & Plan Assessment/Plan (1) Chronic paraplegia: (2) Infected decubitus ulcer: PLAN: Wound cx with enterococcus, MRSA. CT done. Ucx with enterobacter. OR 08/14/[address] Barton for I&D down to bone. On vanc/cefepime/flagyl. will follow
--- NOTE | 2024-08-15 10:42 | CASEMGMT ---
Discharge Planning HH resumption referral sent to [facility]. Vianey Wilson DC Planning Asst.
[2024-08-15] MEDS: Gabapentin 800 MG Tablet PO ×4 (10:51→22:24)
[2024-08-15] MEDS: Acetaminophen 325 MG Tablet 650 MG PO ×3 (10:52→22:23)
[2024-08-15] MEDS: DULoxetine Hcl 60 MG Capsule 120 MG PO (10:53)
[2024-08-15] MEDS: Meloxicam 15 MG Tablet PO (10:53)
[2024-08-15] MEDS: Tolterodine Tartrate 2 MG CAP.SA PO (10:53)
[2024-08-15] MEDS: Baclofen 10 MG Tablet 20 MG PO ×4 (10:53→22:26)
[2024-08-15] MEDS: Enoxaparin 40 MG/0.4 ML Syringe SC (10:54)
[2024-08-15] MEDS: Cilostazol 50 MG Tablet PO ×2 (10:54→22:27)
--- NOTE | 2024-08-15 11:34 | PN.HOSP_ITS ---
Reason for Visit Reason for Visit: Diagnoses Paraplegia, unspecified (08/08/24) Local infection of the skin and subcutaneous tissue, unspecified (08/08/24) Pressure ulcer of sacral region, stage 3 (08/08/24) Pressure ulcer of sacral region, stage 4 (08/08/24) Pressure ulcer of unspecified site, unspecified stage (08/08/24) Urinary tract infection, site not specified (08/08/24) Subjective Subjective States that she is not having any sustained pain relief with fentanyl and would like to try Toradol. No issues overnight, she does have a reactive leukocytosis from surgery yesterday more than likely Objective Data Objective Data Vital Signs: Vital Signs Temp Pulse Resp BP Pulse Ox O2 Del Method 97.5 F L 82 15 103/67 97 Room Air 08/15/24 10:13 08/15/24 10:13 08/15/24 10:13 08/15/24 10:13 08/15/24 10:13 08/15/24 10:17 Oxygen Delivery Method Room Air Weight: 183 lb 3.266 oz Body Mass Index (BMI) 24.1 Intake & Output: Intake and Output for Last 24 Hours 08/14/24 08/15/24 08/16/24 03:59 03:59 03:59 Intake Total 2070 / 2070 2435 / 2435 460 / 460 Output Total 4450 / 4450 3100 / 3100 600 / 600 Balance -2380 / -2380 -665 / -665 -140 / -140 Lab / Micro Data 08/15/24 05:14 08/15/24 05:14 Labs: Laboratory Results - last 24 hr 08/15/24 05:14: WBC 17.8 H, RBC 4.18 L, Hgb 11.5 L, Hct 36.3 L, MCV 86.8, MCH 27.5, MCHC 31.7 L, RDW Std Deviation 45.3 H, RDW Coeff of Domonique 14.1, Plt Count 391, MPV 9.5, Immature Gran % (Auto) 0.900, Neut % (Auto) 84.3 H, Lymph % (Auto) 10.0 L, [place] % (Auto) 4.4, Eos % (Auto) 0.1, Baso % (Auto) 0.3, Absolute Neuts (auto) 15.0 H, Absolute Lymphs (auto) 1.77, Nucleated RBC % 0, Sodium 140, Potassium 4.0, Chloride 107, Carbon Dioxide 31.0, Anion Gap 2 L, BUN 8, C reatinine 0.35 L, Estim Creat Clear Calc 246.70, Est GFR (MDRD) Af Amer 260, Est GFR (MDRD) Non-Af 215, BUN/Creatinine Ratio 22.7 H, Glucose 109 H, Calcium 8.7 Micro: Microbiology 08/14/24 16:30 Bone - Sacral Bone Wound Culture - Preliminary No growth-Final to follow 08/14/24 16:29 Tissue - Sacral Pressure Sore Wound Culture - Preliminary No growth-Final to follow 08/08/24 22:26 Blood Culture (Wb) - Other Blood Culture - Final No growth in 5 days. 08/09/24 02:00 Wound - Sacral Gram Stain - Final 08/09/24 02:00 Wound - Sacral Wound Culture - Final Meth. resistant Staph. aureus Enterococcus faecalis 08/09/24 02:00 Wound - Sacral Skin and Soft Tissue MRSA/MSSA (PCR - Final Meth. resistant Staph. aureus 08/08/24 21:40 Urine, Catheterized Urine Culture - Final Enterobacter cloacae complex Physical Exam Narrative General: Alert, Oriented x3, Cooperative, No apparent distress HEENT: Atraumatic, PERRLA, EOMI, Normocephalic Oral: Moist Mucosa Neck: Supple, No JVD Lungs: Clear to auscultation, Normal air movement, No rhonchi, No wheeze, No rales Cardiovascular: Regular rate, Regular Rhythm, Normal S1, Normal S2, No murmurs Abdomen: Soft, Non Tender, Non-Distended, No Hepato-splenomegaly Extremities: No edema, Capillary Refill Less than 3 Seconds Skin: Decubitus ulcers status post debrided and currently with a wound VAC Musculoskeletal: No Tenderness to Palpation of Joints or Extremities Neurological: Bilateral lower extremity paraplegia from a previous epidural abscess. Upper extremities 5 out of 5 bilaterally Psych/Mental Status: Normal Affect, Appropriate Assessment & Plan Assessment/Plan (1) Complicated urinary tract infection: (2) Sacral decubitus ulcer, stage III: PLAN: Plan #1. Acutely Infected Worsening now stage III-IV (suspect undermined) pressure wound over the coccyx with periwound erythema concerning for acute cellulitis, possibly osteomyelitis (reported as Septic per ED physician as patient has leukocytosis, tachycardia and source with SBP < 90; however, she is chronically hypotensive, stable BP compared to her baseline, thus no obvious end organ damage, thus unable to state clearly that she has sepsis): Will admit to PCU given concurrent chronic hypotension, will maintain on judicious IV fluids, will obtain Wound Cx/Wound MRSA assessment, will initiate on cefepime and IV vancomycin based on most recent admission cultures w/ ID consultation if transition to [facility] is prolonged and de-escalation/change per their discretion, offload, wound RN consulted. 08/09/2024: Awaiting transfer to [facility] 08/10/2024: Awaiting transfer, continue with antibiotics, leukocytosis is improving. Cultures so far with MRSA as well as Enterococcus and her wounds and Enterobacter in her urine 08/11/2024: Improvement in pain with the increase in oxycodone from her wound. Continue with local wound care 08/12/2024: Awaiting transfer to [facility] 08/13/2024: Plastic surgery is available here will cancel transfer to [facility] Plan for debridement and wound VAC placement tomorrow or Sunday08/14/2024: Plan for surgical intervention today 08/15/2024: Currently with a wound VAC in place. Will add Toradol to her pain management regimen and discontinue her meloxicam #2. Possible Complicated Urinary Tract Infection secondary to chronic indwelling suprapubic catheter versus chronic colonization: UA upon ED evaluation remarkable, pending UCx, continue judicious IVFs, monitor I/Os, continue IV vancomycin and cefepime based on previous cultures with noted most recent enterococcal infection w/ transition as able pending sensitivities and speciation. Infectious disease consulted. 08/10/2024: Enterobacter in her urine, sensitive to cefepime which she is already on 08/15/2024: Based on the duration of her antibiotics this is likely been treated and resolved at this time #3. History of spinal abscess with resulting paraplegia, chronic decubitus ulcers/wounds requiring previous debridement, chronic neurogenic bladder with chronic suprapubic catheter: As long as BP tolerates will continue home Klonopin and gabapentin regimen, continue offloading, frequent positional changes, barrier cream, PT/OT/CM consultation for discharge planning. Verifying last snowden catheter change date as frequent UTI history. #4. Chronic anemia/iron deficiency anemia, currently normocytic, previously microcytic: Admission hemoglobin [], MCV [], baseline appears more recently , will continue to closely monitor and repeat CBC in the AM, encourage continued outpatient follow-up as has previously been administered IV Fe. #5. Chronic hypotension: Patient with chronic hypotension/orthostasis, will maintain on Florinef and midodrine. #6. History of polysubstance abuse, history of IV drug abuse with Hepatitis C: Encourage continued outpatient follow-up with infectious disease, encourage continued clean status, UDS pending upon admission. #7. Anxiety and depression: We will continue patient home Cymbalta and Klonopin regimen and continue to encourage outpatient follow-up/counseling as previously arranged. #8. History of VTE: Not chronically anticoagulated, will maintain on chemoprophylaxis as noted #9. Tobacco Abuse: Encouraged cessation, inpatient consultation per RT, NR if desired. #10. History of Clostridium C. difficile colitis: Given antibiotic usage will maintain on lactobacillus regimen. DVT: Lovenox Charges/Coding Visit Charges Inpatient E&M: 85316 Subs Hosp L2
[2024-08-15] MEDS: Midodrine HCl 5 MG Tablet 10 MG PO (13:59)
[2024-08-15] MEDS: Ketorolac 15 MG/ML Vial IV (14:39)
--- NOTE | 2024-08-15 15:23 | CASEMGMT ---
ANTONIETTA CRAMER updated by wound nurse that patient will need low air loss mattress for at home at discharge. ANTONIETTA CRAMER in to discuss with patient. Patient states she does not have a hospital bed at home. ANTONIETTA CRAMER reviewed DME agencies with patient and prefers [facility] [place]. Patient is anticiapted to discharge on Sunday or Sunday. ANTONIETTA CRAMER received script for hospital bed and loss air loss mattress and sent to [facility] [place] via [employer]. CM will continue to follow this patient and plan for a safe discharge.
[2024-08-15] MEDS: VANCOMYCIN 200 MG IV (17:27)
[2024-08-16 00:17] LABS: Vancomycin, Trough Level 23.5 ug/mL (5.0-15.0)
--- NOTE | 2024-08-16 00:33 | PHA.PHARE_ITS ---
Consult Antibiotic Management Pharmacy has been consulted to manage selected antibiotic: Vancomycin Type of Intervention Type of Consult: Follow-up Labs Labs: Sodium 140 mmol/L (136-145) 08/15/24 05:14 Potassium 4.0 mmol/L (3.5-5.1) 08/15/24 05:14 Chloride 107 mmol/L (98-107) 08/15/24 05:14 Carbon Dioxide 31.0 mmol/L (21.0-32.0) 08/15/24 05:14 Anion Gap 2 (5-15) L 08/15/24 05:14 BUN 8 mg/dL (7-18) 08/15/24 05:14 Creatinine 0.35 mg/dL (0.55-1.02) L 08/15/24 05:14 Est GFR (MDRD) Af Amer 260 mL/min (>60) 08/15/24 05:14 Est GFR (MDRD) Non-Af 215 mL/min (>60) 08/15/24 05:14 BUN/Creatinine Ratio 22.7 RATIO (10-20) H 08/15/24 05:14 Glucose 109 mg/dL (74-106) H 08/15/24 05:14 Vancomycin Trough 23.5 ug/mL (5.0-15.0) H 08/15/24 23:53 Microbiology Microbiology: Microbiology 08/14/24 16:30 Bone - Sacral Bone Gram Stain - Final 08/14/24 16:30 Bone - Sacral Bone Wound Culture - Preliminary No growth-Final to follow 08/14/24 16:29 Tissue - Sacral Pressure Sore Gram Stain - Final 08/14/24 16:29 Tissue - Sacral Pressure Sore Wound Culture - Preliminary No growth-Final to follow 08/08/24 22:26 Blood Culture (Wb) - Other Blood Culture - Final No growth in 5 days. 08/09/24 02:00 Wound - Sacral Gram Stain - Final 08/09/24 02:00 Wound - Sacral Wound Culture - Final Meth. resistant Staph. aureus Enterococcus faecalis 08/09/24 02:00 Wound - Sacral Skin and Soft Tissue MRSA/MSSA (PCR - Final Meth. resistant Staph. aureus 08/08/24 21:40 Urine, Catheterized Urine Culture - Final Enterobacter cloacae complex Dosing Weight Weight used for dosin.1 kg Estimated Creatinine Clearance Estimated Creatinine Clearance: 144 Goal Trough Goal Trough: 15-20 mcg/mL Pharmacy Plan for Drug Dosing Pharmacy Plan for Drug Dosing: Vancomycin trough level of 23.5 was high. This was drawn just 6.5 hours post- dose. Per vancomycin dosing calculator a new dose/schedule of 1250mg q12h should give an estimated trough of 16.2. This will be initiated 08/16/24 @0700, and a trough will be drawn prior to the fourth dose of the new regimen. Pharmacy Service will continue to monitor and adjust dosing as required. Follow-Up Labs Follow-Up Labs: Trough: Vancomycin Date/Time Labs Ordered Labs to be done on [date and time ordered]: 08/17/24 @1835
[2024-08-16 04:11] VITALS: BP 124/84; PULSE 88; RESP 16; TEMP 35.8; O2SAT 99
[2024-08-16] MEDS: Ondansetron 4 MG/2 ML Vial IV (04:14)
[2024-08-16] MEDS: oxyCODONE 5 MG Tablet 10 MG PO ×4 (04:17→19:01)
[2024-08-16] MEDS: Acetaminophen 325 MG Tablet 650 MG PO ×2 (04:17→10:04)
[2024-08-16] MEDS: Cefepime HCl 2 GM in 0.9% Normal Saline (100mL MB+) 100 ML IV ×3 (05:21→22:51)
[2024-08-16] MEDS: Lactobacillis Acidophilus 1 CAP PO ×3 (05:25→22:15)
[2024-08-16] MEDS: metroNIDAZOLE 500 MG Tablet PO ×3 (05:25→22:14)
[2024-08-16 05:43] LABS: Absolute Lymphocyte Count 2.89 X10^3/uL (0.83-4.51); Absolute Neutrophil Count 6.3 X10^3/uL (2.0-7.7); Basophil# 0.06 X10^3/uL; Basophil% 0.6 % (0-1); Eosinophil# 0.13 X10^3/uL; Eosinophils% 1.3 % (0-5); Hematocrit 34.4 % (37-47); Hemoglobin 10.7 g/dL (12.0-15.0); Lymphocyte # 2.89 X10^3/ul (0.83-4.51); Lymphocyte % 28.5 % (19-41); Mean Corp Hgb Conc 31.1 g/dL (32-36); Mean Corpuscular Hgb 27.6 pg (27.0-32.0); Mean Corpuscular Volume 88.7 fL (81-99); Mean Platelet Vol. 9.7 fl (6.2-12.0); Monocyte# 0.65 X10^3/uL; Monocyte% 6.4 % (0-10); NRBC Flagged by Analyzer 0 % (0-5); Neutrophil % 62.2 % (47-70); Platelet Count 329 K/mm3 (150-450); RBC Distribution Width CV 14.6 % (11.6-14.6); RBC Distribution Width SD 46.3 fl (35.1-43.9); Red Blood Count 3.88 M/mm3 (4.2-5.4); White Blood Count 10.1 K/mm3 (4.4-11.0)
[2024-08-16 06:00] VITALS: BMI 24.0
[2024-08-16 06:17] LABS: Anion Gap 2 (5-15); BUN 16 mg/dL (7-18); BUN/Creat Ratio 47.5 RATIO (10-20); Calcium,Total 8.2 mg/dL (8.5-10.1); Chloride 112 mmol/L (98-107); Creatinine, Serum 0.34 mg/dL (0.55-1.02); EST Glomerular Filtration Rate 226 mL/min (>60); Est Glom Filt Rate - Afr Amer 273 mL/min (>60); Estimated Creatinine Clearance 253.95 ml/min; Glucose 110 mg/dL (74-106); Sodium Level 141 mmol/L (136-145)
[2024-08-16] MEDS: Vancomycin HCl 1,250 MG in 0.9% Normal Saline (250mL Bag) 250 ML 167 MG IV ×2 (06:36→19:04)
[2024-08-16] MEDS: Ketorolac 15 MG/ML Vial IV (06:53)
--- NOTE | 2024-08-16 07:28 | PN.HOSP_ITS ---
Reason for Visit Reason for Visit: Diagnoses Paraplegia, unspecified (08/08/24) Local infection of the skin and subcutaneous tissue, unspecified (08/08/24) Pressure ulcer of sacral region, stage 3 (08/08/24) Pressure ulcer of sacral region, stage 4 (08/08/24) Pressure ulcer of unspecified site, unspecified stage (08/08/24) Urinary tract infection, site not specified (08/08/24) Subjective Subjective Patient is a 44-year-old female with 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 An assessment of infected decubitus wound was made admitted to a monitored bed. Patient underwent wound debridement with placement of wound VAC Objective Data Objective Data Vital Signs: Vital Signs Temp Pulse Resp BP Pulse Ox O2 Del Method 96.4 F L 88 16 124/84 H 99 Room Air 08/16/24 04:11 08/16/24 04:11 08/16/24 04:11 08/16/24 04:11 08/16/24 04:11 08/16/24 04:11 Oxygen Delivery Method Room Air Weight: 82.9 kg Body Mass Index (BMI) 24.0 Intake & Output: Intake and Output for Last 24 Hours 08/14/24 08/15/24 08/16/24 23:59 23:59 23:59 Intake Total 2555 / 2915 1936.25 / 1936.25 200 / 200 Output Total 4000 / 5000 3150 / 3150 400 / 400 Balance -1445 / -2085 -1213.75 / -1213.75 -200 / -200 Lab / Micro Data 08/16/24 05:16 08/16/24 05:16 Labs: Laboratory Results - last 24 hr 08/15/24 23:53: Vancomycin Trough 23.5 H 08/16/24 05:16: WBC 10.1, RBC 3.88 L, Hgb 10.7 L, Hct 34.4 L, MCV 88.7, MCH 27.6, MCHC 31.1 L, RDW Std Deviation 46.3 H, RDW Coeff of Domonique 14.6, Plt Count 329, MPV 9.7, Immature Gran % (Auto) 1.000 H, Neut % (Auto) 62.2, Lymph % (Auto) 28.5, [place] % (Auto) 6.4, Eos % (Auto) 1.3, Baso % (Auto) 0.6, Absolute Neuts (auto) 6.3, Absolute Lymphs (auto) 2.89, Nucleated RBC % 0, Sodium 141, Potassium 4.0, Chloride 112 H, Carbon Dioxide 27.0, Anion Gap 2 L, BUN 16, C reatinine 0.34 L, Estim Creat Clear Calc 253.95, Est GFR (MDRD) Af Amer 273, Est GFR (MDRD) Non-Af 226, BUN/Creatinine Ratio 47.5 H, Glucose 110 H, Calcium 8.2 L Micro: Microbiology 08/14/24 16:30 Bone - Sacral Bone Gram Stain - Final 08/14/24 16:30 Bone - Sacral Bone Wound Culture - Preliminary No growth-Final to follow 08/14/24 16:29 Tissue - Sacral Pressure Sore Gram Stain - Final 08/14/24 16:29 Tissue - Sacral Pressure Sore Wound Culture - Preliminary No growth-Final to follow 08/08/24 22:26 Blood Culture (Wb) - Other Blood Culture - Final No growth in 5 days. 08/09/24 02:00 Wound - Sacral Gram Stain - Final 08/09/24 02:00 Wound - Sacral Wound Culture - Final Meth. resistant Staph. aureus Enterococcus faecalis 08/09/24 02:00 Wound - Sacral Skin and Soft Tissue MRSA/MSSA (PCR - Final Meth. resistant Staph. aureus 08/08/24 21:40 Urine, Catheterized Urine Culture - Final Enterobacter cloacae complex Physical Exam Narrative GENERAL: cooperative HEENT: Atraumatic; normocephalic EYES; Anicteric, Normal Conjunctiva NECK; supple, normal thyroid, RESPIRATORY: Diminished to auscultation CARDIOVASCULAR: Regular S1 S2, GI: soft, normoactive bowel sounds, : No Renal angle tenderness; EXTREMITIES: No edema, no clubbing, MUSCULOSKELETAL: Wound VAC in the sacral region NEURO: Awake; oriented to place and. SKIN: No Rash PSYCH; Flat affect Assessment & Plan Assessment/Plan (1) Complicated urinary tract infection: (2) Sacral decubitus ulcer, stage III: PLAN: Plan Patient is a 44-year-old female with 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 An assessment of infected decubitus wound was made admitted to a monitored bed. Patient underwent wound debridement with placement of wound VAC 1. Acute infected sacral decubitus ?Patient underwent excision of necrotic sacral ulcer down to the bone as well as biopsy of sacral bone by Dr. Barton on 08/14/2024 previous cultures are growing MRSA as well as Enterococcus. Patient managed with vancomycin cefepime and Flagyl cultures from patient wound debridement still pending 2. Acute complicated UTI ? Secondary to chronic indwelling suprapubic Charles catheter patient grew Enterobacter in the urine on appropriate antibiotic therapy 3. History of spinal abscess ? With resultant paraplegia and neurogenic bladder for which patient has a chronic suprapubic catheter. 4. Physical deconditioning ? Requested for PT OT eval and social worker psychiatric to assist with discharge planning 5. Anemia ? Secondary to chronic disorder monitoring H&H and transfuse if patient becomes symptomatic or hemoglobin falls below 7 6. Previous history of polysubstance dependence ? With history of IV drug abuse with hep C 7. Depression with anxiety ? Patient is on Cymbalta and Klonopin 8. Tobacco dependence ? Counseled on cessation, offered nicotine patch for tobacco cravings 9. Chronic hypotension ? Patient is on Florinef as well as midodrine 10. DVT prophylaxis ? On enoxaparin Time spent in the patient's overall evaluation,decision-making process, review of diagnostic data, adjustment of management, discussion with other providers, nursing nursing and ancillary staff involved in patient's care documentation, 38Minutes Charges/Coding Visit Charges Inpatient E&M: 23706 Subs Hosp L2
[2024-08-16 09:59] VITALS: BP 93/53; PULSE 81; RESP 16; TEMP 36.2; O2SAT 99
[2024-08-16] MEDS: Midodrine HCl 5 MG Tablet 10 MG PO (10:03)
[2024-08-16] MEDS: Gabapentin 800 MG Tablet PO ×4 (10:03→22:15)
[2024-08-16] MEDS: Ferrous Sulfate 325 MG Tablet PO (10:04)
[2024-08-16] MEDS: DULoxetine Hcl 60 MG Capsule 120 MG PO (10:04)
[2024-08-16] MEDS: Fludrocortisone Acetate 0.1 MG Tablet 0.05 MG PO (10:04)
[2024-08-16] MEDS: Tolterodine Tartrate 2 MG CAP.SA PO (10:05)
[2024-08-16] MEDS: Baclofen 10 MG Tablet 20 MG PO ×4 (10:05→22:14)
[2024-08-16] MEDS: Enoxaparin 40 MG/0.4 ML Syringe SC (10:05)
[2024-08-16] MEDS: Cilostazol 50 MG Tablet PO ×2 (10:05→22:14)
[2024-08-16] MEDS: 0.9% Saline Lock 10 ML Syringe IV ×5 (10:07→22:44)
[2024-08-16] MEDS: Ascorbic Acid 500 MG Tablet PO (10:09)
[2024-08-16 13:57] VITALS: BP 127/84; PULSE 72; RESP 16; TEMP 36.9; O2SAT 99
[2024-08-16] MEDS: Acetaminophen 500 MG Tablet 1000 MG PO ×2 (14:11→22:15)
[2024-08-16 17:48] VITALS: BP 112/65; PULSE 82; RESP 16; TEMP 36.6; O2SAT 98
[2024-08-16] MEDS: HYDROmorphone 0.5 MG/0.5 ML SYRINGE IV ×2 (17:59→22:21)
[2024-08-16 22:11] VITALS: BP 94/63; PULSE 87; RESP 18; TEMP 36.2; O2SAT 98
[2024-08-17] MEDS: oxyCODONE 5 MG Tablet 10 MG PO ×5 (00:58→23:26)
--- NOTE | 2024-08-17 01:08 | NURSING ---
This RN attempted to put pt's bed to lowest position and attempted to put left lower or left upper side rails up since she's turned to the left side and would keep her from rolling off the bed, but pt insisted to keep the bed high and both left bed rails down so it's easier for pt to reach personal items on her table. This RN assisted pt w/ repositioning her legs closer to the middle, no further concerns at this time.
[2024-08-17] MEDS: HYDROmorphone 0.5 MG/0.5 ML SYRINGE IV ×3 (04:11→20:42)
[2024-08-17] MEDS: 0.9% Saline Lock 10 ML Syringe IV ×5 (04:12→20:41)
[2024-08-17 04:15] VITALS: BP 108/70; PULSE 67; RESP 18; TEMP 36.2; O2SAT 95
[2024-08-17 05:13] VITALS: BMI 23.9
[2024-08-17] MEDS: Cefepime HCl 2 GM in 0.9% Normal Saline (100mL MB+) 100 ML IV ×2 (05:24→13:33)
[2024-08-17] MEDS: metroNIDAZOLE 500 MG Tablet PO ×3 (05:26→22:55)
[2024-08-17] MEDS: Lactobacillis Acidophilus 1 CAP PO ×3 (05:26→22:56)
[2024-08-17] MEDS: Acetaminophen 500 MG Tablet 1000 MG PO ×3 (05:26→22:55)
[2024-08-17 06:07] LABS: Absolute Lymphocyte Count 2.54 X10^3/uL (0.83-4.51); Absolute Neutrophil Count 6.4 X10^3/uL (2.0-7.7); Basophil# 0.07 X10^3/uL; Basophil% 0.7 % (0-1); Eosinophil# 0.12 X10^3/uL; Eosinophils% 1.2 % (0-5); Hematocrit 34.8 % (37-47); Hemoglobin 10.9 g/dL (12.0-15.0); Lymphocyte # 2.54 X10^3/ul (0.83-4.51); Lymphocyte % 25.8 % (19-41); Mean Corp Hgb Conc 31.3 g/dL (32-36); Mean Corpuscular Hgb 27.7 pg (27.0-32.0); Mean Corpuscular Volume 88.5 fL (81-99); Mean Platelet Vol. 9.4 fl (6.2-12.0); Monocyte# 0.64 X10^3/uL; Monocyte% 6.5 % (0-10); NRBC Flagged by Analyzer 0 % (0-5); Neutrophil # 6.38 X10^3/uL (2.7-7.7); Neutrophil % 64.7 % (47-70); Platelet Count 340 K/mm3 (150-450); RBC Distribution Width CV 14.5 % (11.6-14.6); RBC Distribution Width SD 46.4 fl (35.1-43.9); Red Blood Count 3.93 M/mm3 (4.2-5.4); White Blood Count 9.9 K/mm3 (4.4-11.0)
[2024-08-17 06:25] LABS: Anion Gap 2 (5-15); BUN 18 mg/dL (7-18); BUN/Creat Ratio 52.5 RATIO (10-20); Calcium,Total 8.5 mg/dL (8.5-10.1); Chloride 110 mmol/L (98-107); Creatinine, Serum 0.34 mg/dL (0.55-1.02); EST Glomerular Filtration Rate 221 mL/min (>60); Est Glom Filt Rate - Afr Amer 268 mL/min (>60); Estimated Creatinine Clearance 253.95 ml/min; Glucose 100 mg/dL (74-106); Magnesium 1.8 mg/dL (1.6-2.6); Phosphorus 3.6 mg/dL (2.5-4.9); Potassium 3.9 mmol/L (3.5-5.1); Sodium Level 141 mmol/L (136-145)
[2024-08-17] MEDS: Vancomycin HCl 1,250 MG in 0.9% Normal Saline (250mL Bag) 250 ML 167 MG IV ×2 (06:47→23:18)
--- NOTE | 2024-08-17 07:46 | PN.HOSP_ITS ---
Reason for Visit Reason for Visit: Diagnoses Paraplegia, unspecified (08/08/24) Local infection of the skin and subcutaneous tissue, unspecified (08/08/24) Pressure ulcer of sacral region, stage 3 (08/08/24) Pressure ulcer of sacral region, stage 4 (08/08/24) Pressure ulcer of unspecified site, unspecified stage (08/08/24) Urinary tract infection, site not specified (08/08/24) Subjective Subjective Adjusted patient pain regimen the day prior pain control improved Objective Data Objective Data Vital Signs: Vital Signs Temp Pulse Resp BP Pulse Ox O2 Del Method 97.2 F L 67 18 108/70 95 Room Air 08/17/24 04:15 08/17/24 04:15 08/17/24 04:15 08/17/24 04:15 08/17/24 04:15 08/17/24 04:31 Oxygen Delivery Method Room Air Weight: 82.3 kg Body Mass Index (BMI) 23.9 Intake & Output: Intake and Output for Last 24 Hours 08/15/24 08/16/24 08/17/24 23:59 23:59 23:59 Intake Total 1936.25 / 1936.25 1070 / 1070 100 / 100 Output Total 3150 / 3150 1100 / 1100 900 / 900 Balance -1213.75 / -1213.75 -30 / -30 -800 / -800 Lab / Micro Data 08/17/24 05:46 08/17/24 05:46 Labs: Laboratory Results - last 24 hr 08/17/24 05:46: WBC 9.9, RBC 3.93 L, Hgb 10.9 L, Hct 34.8 L, MCV 88.5, MCH 27.7, MCHC 31.3 L, RDW Std Deviation 46.4 H, RDW Coeff of Domonique 14.5, Plt Count 340, MPV 9.4, Immature Gran % (Auto) 1.100 H, Neut % (Auto) 64.7, Lymph % (Auto) 25.8, [place] % (Auto) 6.5, Eos % (Auto) 1.2, Baso % (Auto) 0.7, Absolute Neuts (auto) 6.4, Absolute Lymphs (auto) 2.54, Nucleated RBC % 0, Sodium 141, Potassium 3.9, Chloride 110 H, Carbon Dioxide 29.0, Anion Gap 2 L, BUN 18, Creatinine 0.34 L, Estim Creat Clear Calc 253.95, Est GFR (MDRD) Af Amer 268, Est GFR (MDRD) Non-Af 221, BUN/Creatinine Ratio 52.5 H, Glucose 100, Calcium 8.5, Phosphorus 3.6, Magnesium 1.8 Micro: Microbiology 08/14/24 16:30 Bone - Sacral Bone Gram Stain - Final 08/14/24 16:30 Bone - Sacral Bone Wound Culture - Preliminary No growth-Final to follow 08/14/24 16:29 Tissue - Sacral Pressure Sore Gram Stain - Final 08/14/24 16:29 Tissue - Sacral Pressure Sore Wound Culture - Preliminary No growth-Final to follow 08/08/24 22:26 Blood Culture (Wb) - Other Blood Culture - Final No growth in 5 days. 08/09/24 02:00 Wound - Sacral Gram Stain - Final 08/09/24 02:00 Wound - Sacral Wound Culture - Final Meth. resistant Staph. aureus Enterococcus faecalis 08/09/24 02:00 Wound - Sacral Skin and Soft Tissue MRSA/MSSA (PCR - Final Meth. resistant Staph. aureus 08/08/24 21:40 Urine, Catheterized Urine Culture - Final Enterobacter cloacae complex Physical Exam Narrative GENERAL: cooperative HEENT: Atraumatic; normocephalic EYES; Anicteric, Normal Conjunctiva NECK; supple, normal thyroid, RESPIRATORY: Diminished to auscultation CARDIOVASCULAR: Regular S1 S2, GI: soft, normoactive bowel sounds, : No Renal angle tenderness; EXTREMITIES: No edema, no clubbing, MUSCULOSKELETAL: Wound VAC in the sacral region NEURO: Awake; oriented to place and. SKIN: No Rash PSYCH; Flat affect Assessment & Plan Assessment/Plan (1) Complicated urinary tract infection: (2) Sacral decubitus ulcer, stage III: PLAN: Plan Patient is a 44-year-old female with 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 An assessment of infected decubitus wound was made admitted to a monitored bed. Patient underwent wound debridement with placement of wound VAC 1. Acute infected sacral decubitus ?Patient underwent excision of necrotic sacral ulcer down to the bone as well as biopsy of sacral bone by Dr. Barton on 08/14/2024 previous cultures are growing MRSA as well as Enterococcus. Patient managed with vancomycin cefepime and Flagyl cultures from patient wound debridement still pending ? 08/17/2024; culture still pending adjusted patient pain medication regimen pain improved. 2. Acute complicated UTI ? Secondary to chronic indwelling suprapubic Charles catheter patient grew Enterobacter in the urine on appropriate antibiotic therapy 3. History of spinal abscess ? With resultant paraplegia and neurogenic bladder for which patient has a chronic suprapubic catheter. 4. Physical deconditioning ? Requested for PT OT eval and child protective services social worker to assist with discharge planning 5. Anemia ? Secondary to chronic disorder monitoring H&H and transfuse if patient becomes symptomatic or hemoglobin falls below 7 6. Previous history of polysubstance dependence ? With history of IV drug abuse with hep C 7. Depression with anxiety ? Patient is on Cymbalta and Klonopin 8. Tobacco dependence ? Counseled on cessation, offered nicotine patch for tobacco cravings 9. Chronic hypotension ? Patient is on Florinef as well as midodrine 10. DVT prophylaxis ? On enoxaparin Time spent in the patient's overall evaluation,decision-making process, review of diagnostic data, adjustment of management, discussion with other providers, nursing nursing and ancillary staff involved in patient's care documentation, 36 Minutes Charges/Coding Visit Charges Inpatient E&M: 82770 Subs Hosp L2
[2024-08-17 08:53] VITALS: BP 104/59; PULSE 80; RESP 16; TEMP 36.6; O2SAT 99
[2024-08-17] MEDS: Enoxaparin 40 MG/0.4 ML Syringe SC (08:55)
[2024-08-17] MEDS: Gabapentin 800 MG Tablet PO ×4 (08:55→22:56)
[2024-08-17] MEDS: Midodrine HCl 5 MG Tablet 10 MG PO (08:55)
[2024-08-17] MEDS: Fludrocortisone Acetate 0.1 MG Tablet 0.05 MG PO (08:56)
[2024-08-17] MEDS: Baclofen 10 MG Tablet 20 MG PO ×4 (08:56→22:55)
[2024-08-17] MEDS: DULoxetine Hcl 60 MG Capsule 120 MG PO (08:57)
[2024-08-17] MEDS: HYDROmorphone 1 MG/ML Syringe IV (08:57)
[2024-08-17] MEDS: Cilostazol 50 MG Tablet PO ×2 (08:57→22:56)
[2024-08-17] MEDS: Tolterodine Tartrate 2 MG CAP.SA PO (08:57)
[2024-08-17] MEDS: Ondansetron 4 MG/2 ML Vial IV (13:33)
[2024-08-17 16:00] VITALS: BP 120/80; PULSE 82; RESP 14; TEMP 36.6; O2SAT 98
[2024-08-17 20:30] LABS: Vancomycin, Trough Level 15.5 ug/mL (5.0-15.0)
--- NOTE | 2024-08-17 20:35 | PCM.RX.CS ---
Consult Antibiotic Management Pharmacy has been consulted to manage selected antibiotic: Vancomycin Type of Intervention Type of Consult: Follow-up Suspected Infection Suspected Infection: Skin/Soft tissue Labs Labs: Sodium 141 mmol/L (136-145) 08/17/24 05:46 Potassium 3.9 mmol/L (3.5-5.1) 08/17/24 05:46 Chloride 110 mmol/L (98-107) H 08/17/24 05:46 Carbon Dioxide 29.0 mmol/L (21.0-32.0) 08/17/24 05:46 Anion Gap 2 (5-15) L 08/17/24 05:46 BUN 18 mg/dL (7-18) 08/17/24 05:46 Creatinine 0.34 mg/dL (0.55-1.02) L 08/17/24 05:46 Est GFR (MDRD) Af Amer 268 mL/min (>60) 08/17/24 05:46 Est GFR (MDRD) Non-Af 221 mL/min (>60) 08/17/24 05:46 BUN/Creatinine Ratio 52.5 RATIO (10-20) H 08/17/24 05:46 Glucose 100 mg/dL (74-106) 08/17/24 05:46 Vancomycin Trough 15.5 ug/mL (5.0-15.0) H 08/17/24 18:33 Microbiology Microbiology: Microbiology 08/14/24 16:29 Tissue - Sacral Pressure Sore Gram Stain - Final 08/14/24 16:29 Tissue - Sacral Pressure Sore Wound Culture - Preliminary No growth-Final to follow 08/14/24 16:29 Tissue - Sacral Pressure Sore Anaerobic Culture - Preliminary No growth in 48 hours. 08/14/24 16:30 Bone - Sacral Bone Gram Stain - Final 08/14/24 16:30 Bone - Sacral Bone Wound Culture - Preliminary No growth-Final to follow 08/14/24 16:30 Bone - Sacral Bone Anaerobic Culture - Preliminary No growth in 48 hours. 08/08/24 22:26 Blood Culture (Wb) - Other Blood Culture - Final No growth in 5 days. 08/09/24 02:00 Wound - Sacral Gram Stain - Final 08/09/24 02:00 Wound - Sacral Wound Culture - Final Meth. resistant Staph. aureus Enterococcus faecalis 08/09/24 02:00 Wound - Sacral Skin and Soft Tissue MRSA/MSSA (PCR - Final Meth. resistant Staph. aureus 08/08/24 21:40 Urine, Catheterized Urine Culture - Final Enterobacter cloacae complex Goal Trough Goal Trough: 15-20 mcg/mL Pharmacy Plan for Drug Dosing Pharmacy Plan for Drug Dosing: VANCOMYCIN LEVEL RECEIVED Current Vancomycin Dose: 1250mg Q12H Number of Doses Received: 1250mg x3 Vancomycin Level: 15.5 Hours Since Last Dose: 11.75 Renal Function: sCr 0.34 Renal Function Trend: stable Lab/Micro: pending Vancomycin Plan/Comments: Continue 1250mg Q12H Pending Level: Vancomycin trough 08/19/24 @ 0630 Pharmacy Service will continue to monitor and adjust dosing as required. Follow-Up Labs Follow-Up Labs: Trough: Vancomycin (08/19/24 @ 0630)
[2024-08-17 22:50] VITALS: BP 90/48
[2024-08-17 23:19] VITALS: BP 100/60; PULSE 97; RESP 18; TEMP 36.2; O2SAT 97
[2024-08-18] MEDS: Cefepime HCl 2 GM in 0.9% Normal Saline (100mL MB+) 100 ML IV ×3 (01:06→14:09)
[2024-08-18 03:02] VITALS: BMI 23.9
[2024-08-18 05:35] VITALS: BP 106/70; PULSE 72; RESP 18; TEMP 36.4; O2SAT 97
[2024-08-18] MEDS: oxyCODONE 5 MG Tablet 10 MG PO ×4 (05:37→22:55)
[2024-08-18] MEDS: Lactobacillis Acidophilus 1 CAP PO ×3 (05:37→22:39)
[2024-08-18] MEDS: metroNIDAZOLE 500 MG Tablet PO ×2 (05:37→14:29)
[2024-08-18] MEDS: Acetaminophen 500 MG Tablet 1000 MG PO ×3 (05:37→22:38)
[2024-08-18] MEDS: 0.9% Saline Lock 10 ML Syringe IV ×2 (05:57→22:45)
[2024-08-18 06:13] LABS: Absolute Lymphocyte Count 2.57 X10^3/uL (0.83-4.51); Basophil# 0.09 X10^3/uL; Basophil% 0.8 % (0-1); Eosinophil# 0.12 X10^3/uL; Hemoglobin 11.1 g/dL (12.0-15.0); Lymphocyte # 2.57 X10^3/ul (0.83-4.51); Lymphocyte % 22.3 % (19-41); Mean Corp Hgb Conc 31.7 g/dL (32-36); Mean Corpuscular Hgb 27.5 pg (27.0-32.0); Mean Corpuscular Volume 86.8 fL (81-99); Mean Platelet Vol. 9.2 fl (6.2-12.0); Monocyte# 0.67 X10^3/uL; Monocyte% 5.8 % (0-10); NRBC Flagged by Analyzer 0 % (0-5); Neutrophil # 7.96 X10^3/uL (2.7-7.7); Neutrophil % 68.9 % (47-70); Platelet Count 273 K/mm3 (150-450); RBC Distribution Width CV 14.6 % (11.6-14.6); RBC Distribution Width SD 46.7 fl (35.1-43.9); Red Blood Count 4.03 M/mm3 (4.2-5.4); White Blood Count 11.6 K/mm3 (4.4-11.0)
[2024-08-18] MEDS: Vancomycin HCl 1,250 MG in 0.9% Normal Saline (250mL Bag) 250 ML 167 MG IV ×2 (07:03→18:34)
[2024-08-18 07:12] LABS: Anion Gap 3 (5-15); BUN 13 mg/dL (7-18); BUN/Creat Ratio 37.4 RATIO (10-20); Calcium,Total 8.8 mg/dL (8.5-10.1); Chloride 109 mmol/L (98-107); Creatinine, Serum 0.35 mg/dL (0.55-1.02); EST Glomerular Filtration Rate 217 mL/min (>60); Est Glom Filt Rate - Afr Amer 263 mL/min (>60); Glucose 119 mg/dL (74-106); Potassium 3.7 mmol/L (3.5-5.1); Sodium Level 141 mmol/L (136-145)
--- NOTE | 2024-08-18 08:15 | PN.HOSP_ITS ---
Reason for Visit Reason for Visit: Diagnoses Paraplegia, unspecified (08/08/24) Local infection of the skin and subcutaneous tissue, unspecified (08/08/24) Pressure ulcer of sacral region, stage 3 (08/08/24) Pressure ulcer of sacral region, stage 4 (08/08/24) Pressure ulcer of unspecified site, unspecified stage (08/08/24) Urinary tract infection, site not specified (08/08/24) Subjective Subjective Patient seen pain is tolerable. Awaiting case management to set up home IV antibiotics as well as low air mattress prior to discharge Objective Data Objective Data Vital Signs: Vital Signs Temp Pulse Resp BP Pulse Ox O2 Del Method 97.6 F L 72 18 106/70 97 Room Air 08/18/24 05:35 08/18/24 05:35 08/18/24 05:35 08/18/24 05:35 08/18/24 05:35 08/18/24 05:35 Oxygen Delivery Method Room Air Weight: 82.4 kg Body Mass Index (BMI) 23.9 Intake & Output: Intake and Output for Last 24 Hours 08/16/24 08/17/24 08/18/24 23:59 23:59 23:59 Intake Total 1070 / 1070 1075 / 1075 475 / 475 Output Total 1100 / 1100 2850 / 2850 Balance -30 / -30 -1775 / -1775 475 / 475 Lab / Micro Data 08/18/24 06:00 08/18/24 06:00 Labs: Laboratory Results - last 24 hr 08/17/24 18:33: Vancomycin Trough 15.5 H 08/18/24 06:00: WBC 11.6 H, RBC 4.03 L, Hgb 11.1 L, Hct 35.0 L, MCV 86.8, MCH 27.5, MCHC 31.7 L, RDW Std Deviation 46.7 H, RDW Coeff of Domonique 14.6, Plt Count 273, MPV 9.2, Immature Gran % (Auto) 1.200 H, Neut % (Auto) 68.9, Lymph % (Auto) 22.3, [place] % (Auto) 5.8, Eos % (Auto) 1.0, Baso % (Auto) 0.8, Absolute Neuts (auto) 8.0 H, Absolute Lymphs (auto) 2.57, Nucleated RBC % 0, Sodium 141, Potassium 3.7, Chloride 109 H, Carbon Dioxide 29.0, Anion Gap 3 L, BUN 13, C reatinine 0.35 L, Estim Creat Clear Calc 246.70, Est GFR (MDRD) Af Amer 263, Est GFR (MDRD) Non-Af 217, BUN/Creatinine Ratio 37.4 H, Glucose 119 H, Calcium 8.8 Micro: Microbiology 08/14/24 16:30 Bone - Sacral Bone Gram Stain - Final 08/14/24 16:30 Bone - Sacral Bone Wound Culture - Final No growth aerobically. 08/14/24 16:30 Bone - Sacral Bone Anaerobic Culture - Preliminary No growth in 48 hours. 08/14/24 16:29 Tissue - Sacral Pressure Sore Gram Stain - Final 08/14/24 16:29 Tissue - Sacral Pressure Sore Wound Culture - Final No growth aerobically. 08/14/24 16:29 Tissue - Sacral Pressure Sore Anaerobic Culture - Preliminary No growth in 48 hours. 08/08/24 22:26 Blood Culture (Wb) - Other Blood Culture - Final No growth in 5 days. 08/09/24 02:00 Wound - Sacral Gram Stain - Final 08/09/24 02:00 Wound - Sacral Wound Culture - Final Meth. resistant Staph. aureus Enterococcus faecalis 08/09/24 02:00 Wound - Sacral Skin and Soft Tissue MRSA/MSSA (PCR - Final Meth. resistant Staph. aureus 08/08/24 21:40 Urine, Catheterized Urine Culture - Final Enterobacter cloacae complex Physical Exam Narrative GENERAL: cooperative HEENT: Atraumatic; normocephalic EYES; Anicteric, Normal Conjunctiva NECK; supple, normal thyroid, RESPIRATORY: Diminished to auscultation CARDIOVASCULAR: Regular S1 S2, GI: soft, normoactive bowel sounds, : No Renal angle tenderness; EXTREMITIES: No edema, no clubbing, MUSCULOSKELETAL: Wound VAC in the sacral region NEURO: Awake; oriented to place and. SKIN: No Rash PSYCH; Flat affect Assessment & Plan Assessment/Plan (1) Complicated urinary tract infection: (2) Sacral decubitus ulcer, stage III: PLAN: Plan Patient is a 44-year-old female with 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 An assessment of infected decubitus wound was made admitted to a monitored bed. Patient underwent wound debridement with placement of wound VAC 1. Acute infected sacral decubitus ?Patient underwent excision of necrotic sacral ulcer down to the bone as well as biopsy of sacral bone by Dr. Barton on 08/14/2024 previous cultures are growing MRSA as well as Enterococcus. Patient managed with vancomycin cefepime and Flagyl cultures from patient wound debridement still pending ? 08/17/2024; culture still pending adjusted patient pain medication regimen pain improved. ? 08/18/2024; patient seen pain is tolerable. Awaiting case management to set up home IV antibiotics as well as low air mattress prior to discharge. Cultures still pending 2. Acute complicated UTI ? Secondary to chronic indwelling suprapubic Charles catheter patient grew Enterobacter in the urine on appropriate antibiotic therapy 3. History of spinal abscess ? With resultant paraplegia and neurogenic bladder for which patient has a chronic suprapubic catheter. 4. Physical deconditioning ? Requested for PT OT eval and social welfare administrator to assist with discharge planning 5. Anemia ? Secondary to chronic disorder monitoring H&H and transfuse if patient becomes symptomatic or hemoglobin falls below 7 6. Previous history of polysubstance dependence ? With history of IV drug abuse with hep C 7. Depression with anxiety ? Patient is on Cymbalta and Klonopin 8. Tobacco dependence ? Counseled on cessation, offered nicotine patch for tobacco cravings 9. Chronic hypotension ? Patient is on Florinef as well as midodrine 10. DVT prophylaxis ? On enoxaparin Time spent in the patient's overall evaluation,decision-making process, review of diagnostic data, adjustment of management, discussion with other providers, nursing nursing and ancillary staff involved in patient's care documentation, 36 Minutes Charges/Coding Visit Charges Inpatient E&M: 69781 Subs Hosp L2
[2024-08-18] MEDS: Enoxaparin 40 MG/0.4 ML Syringe SC (09:01)
[2024-08-18] MEDS: Midodrine HCl 5 MG Tablet 10 MG PO (09:01)
[2024-08-18] MEDS: Ferrous Sulfate 325 MG Tablet PO (09:01)
[2024-08-18] MEDS: DULoxetine Hcl 60 MG Capsule 120 MG PO (09:01)
[2024-08-18] MEDS: Cilostazol 50 MG Tablet PO ×2 (09:02→22:39)
[2024-08-18] MEDS: Ascorbic Acid 500 MG Tablet PO (09:02)
[2024-08-18] MEDS: Baclofen 10 MG Tablet 20 MG PO ×4 (09:02→22:39)
[2024-08-18] MEDS: Gabapentin 800 MG Tablet PO ×4 (09:02→22:43)
[2024-08-18] MEDS: Fludrocortisone Acetate 0.1 MG Tablet 0.05 MG PO (09:02)
[2024-08-18] MEDS: Tolterodine Tartrate 2 MG CAP.SA PO (09:03)
[2024-08-18 09:30] VITALS: BP 99/63; PULSE 74; RESP 16; TEMP 36.4; O2SAT 95
--- NOTE | 2024-08-18 12:00 | CASEMGMT ---
[facility] Per Carmen they have a bed saved for patient and waiting for intake to create request. RN BELA provided patient number to room to arrange delivery and setup.
[2024-08-18] MEDS: Ondansetron 4 MG/2 ML Vial IV (13:53)
[2024-08-18] MEDS: Sodium Hypochlorite (Dakin's) 0.125% Wound Irrigation IRRIGATION (13:58)
[2024-08-18 14:34] VITALS: BP 136/90; PULSE 71; RESP 16; TEMP 36.6; O2SAT 96
--- NOTE | 2024-08-18 15:06 | PN.ID_ITS ---
Physical Exam Narrative Feeling ok, mild nausea, no fever Const alert and no apparent distress General Appearance: cooperative Resp normal air movement and clear to auscultation bilaterally Cardio regular rate and regular rhythm GI soft to palpation, non-tender and non-distended Skin Skin Narrative: wound vac in place ID ID: Route of nutrition/ use of supplements: [] Nutritional Intake: [] IV Site: [] Charles Catheter: [] Assessment & Plan Assessment/Plan (1) Chronic paraplegia: (2) Infected decubitus ulcer: PLAN: Wound cx with enterococcus, MRSA. CT done. Ucx with enterobacter. OR 08/14/[address] Barton for I&D down to bone. On vanc/cefepime/flagyl. Will change to vanc/erta for easier home dosing. Remote h/o IVDU, ok for picc and IV abx at home. Wrote for 6 weeks iv vanc/erta, weekly labs, stop date 09/25/24. ID followup in 2-3 weeks. D/w family caseworker. will follow
--- NOTE | 2024-08-18 15:12 | CASEMGMT ---
ANTONIETTA CRAMER received scripts for IV ATBs and sent to [facility] with request for planned start of care, awaiting response. CM will continue to follow this patient and plan for safe discharge.
[2024-08-18] MEDS: Ertapenem Sod 1 GM in 0.9% Normal Saline (50mL MB+) 50 ML IV (16:16)
[2024-08-18 23:15] VITALS: BP 116/60; PULSE 66; RESP 16; TEMP 36.1; O2SAT 96
[2024-08-19 03:00] VITALS: BP 99/59; PULSE 68; RESP 16; TEMP 36.6; O2SAT 96
[2024-08-19] MEDS: oxyCODONE 5 MG Tablet 10 MG PO ×3 (03:12→14:01)
[2024-08-19 04:14] VITALS: BMI 24.0
[2024-08-19] MEDS: Ondansetron 4 MG/2 ML Vial IV (05:21)
[2024-08-19] MEDS: Alteplase 2 MG/2 ML Vial IV ×2 (06:11→06:13)
[2024-08-19] MEDS: Acetaminophen 500 MG Tablet 1000 MG PO ×2 (06:57→14:02)
[2024-08-19] MEDS: Lactobacillis Acidophilus 1 CAP PO (06:57)
[2024-08-19 07:02] LABS: Absolute Lymphocyte Count 1.82 X10^3/uL (0.83-4.51); Absolute Neutrophil Count 8.3 X10^3/uL (2.0-7.7); Basophil# 0.07 X10^3/uL; Basophil% 0.6 % (0-1); Eosinophil# 0.07 X10^3/uL; Eosinophils% 0.6 % (0-5); Hematocrit 36.3 % (37-47); Hemoglobin 11.5 g/dL (12.0-15.0); Lymphocyte # 1.82 X10^3/ul (0.83-4.51); Lymphocyte % 16.7 % (19-41); Mean Corp Hgb Conc 31.7 g/dL (32-36); Mean Corpuscular Hgb 27.3 pg (27.0-32.0); Mean Corpuscular Volume 86.2 fL (81-99); Mean Platelet Vol. 9.4 fl (6.2-12.0); Monocyte# 0.56 X10^3/uL; Monocyte% 5.1 % (0-10); NRBC Flagged by Analyzer 0 % (0-5); Neutrophil # 8.27 X10^3/uL (2.7-7.7); Neutrophil % 76.2 % (47-70); Platelet Count 343 K/mm3 (150-450); RBC Distribution Width CV 14.6 % (11.6-14.6); RBC Distribution Width SD 45.8 fl (35.1-43.9); Red Blood Count 4.21 M/mm3 (4.2-5.4); White Blood Count 10.9 K/mm3 (4.4-11.0)
[2024-08-19 07:15] LABS: Anion Gap 3 (5-15); BUN 11 mg/dL (7-18); BUN/Creat Ratio 31.5 RATIO (10-20); Calcium,Total 8.7 mg/dL (8.5-10.1); Chloride 107 mmol/L (98-107); Creatinine, Serum 0.35 mg/dL (0.55-1.02); EST Glomerular Filtration Rate 217 mL/min (>60); Est Glom Filt Rate - Afr Amer 262 mL/min (>60); Glucose 105 mg/dL (74-106); Potassium 3.7 mmol/L (3.5-5.1); Sodium Level 140 mmol/L (136-145)
[2024-08-19 07:30] LABS: Vancomycin, Trough Level 13.6 ug/mL (5.0-15.0)
--- NOTE | 2024-08-19 07:43 | PCM.RX.CS ---
Consult Antibiotic Management Pharmacy has been consulted to manage selected antibiotic: Vancomycin Type of Intervention Type of Consult: Follow-up Prior Doses of Antibiotics Prior Doses of Antibiotics Received/Current Regimen: current dose is vanc 1250mg IV q12h Labs Labs: Sodium 140 mmol/L (136-145) 08/19/24 06:50 Potassium 3.7 mmol/L (3.5-5.1) 08/19/24 06:50 Chloride 107 mmol/L (98-107) 08/19/24 06:50 Carbon Dioxide 30.0 mmol/L (21.0-32.0) 08/19/24 06:50 Anion Gap 3 (5-15) L 08/19/24 06:50 BUN 11 mg/dL (7-18) 08/19/24 06:50 Creatinine 0.35 mg/dL (0.55-1.02) L 08/19/24 06:50 Est GFR (MDRD) Af Amer 262 mL/min (>60) 08/19/24 06:50 Est GFR (MDRD) Non-Af 217 mL/min (>60) 08/19/24 06:50 BUN/Creatinine Ratio 31.5 RATIO (10-20) H 08/19/24 06:50 Glucose 105 mg/dL (74-106) 08/19/24 06:50 Vancomycin Trough 13.6 ug/mL (5.0-15.0) 08/19/24 06:50 Microbiology Microbiology: Microbiology 08/14/24 16:30 Bone - Sacral Bone Gram Stain - Final 08/14/24 16:30 Bone - Sacral Bone Wound Culture - Final No growth aerobically. 08/14/24 16:30 Bone - Sacral Bone Anaerobic Culture - Preliminary No growth in 48 hours. 08/14/24 16:29 Tissue - Sacral Pressure Sore Gram Stain - Final 08/14/24 16:29 Tissue - Sacral Pressure Sore Wound Culture - Final No growth aerobically. 08/14/24 16:29 Tissue - Sacral Pressure Sore Anaerobic Culture - Preliminary No growth in 48 hours. 08/08/24 22:26 Blood Culture (Wb) - Other Blood Culture - Final No growth in 5 days. 08/09/24 02:00 Wound - Sacral Gram Stain - Final 08/09/24 02:00 Wound - Sacral Wound Culture - Final Meth. resistant Staph. aureus Enterococcus faecalis 08/09/24 02:00 Wound - Sacral Skin and Soft Tissue MRSA/MSSA (PCR - Final Meth. resistant Staph. aureus 08/08/24 21:40 Urine, Catheterized Urine Culture - Final Enterobacter cloacae complex Dosing Weight Weight used for dosin.7 kg Estimated Creatinine Clearance Estimated Creatinine Clearance: >100ml/min Goal Trough Goal Trough: 15-20 mcg/mL Pharmacy Plan for Drug Dosing Pharmacy Plan for Drug Dosing: The vanc trough drawn at 06:50 today (approx 12.5 hours after the previous dose) was 13.6. It has dropped below goal range and dropped slightly from 15.5 which was the first trough taken at the current dose. Therefore, will increase next dose to 1500mg IV q12h. Repeat a trough before the 4th new dose. Pharmacy Service will continue to monitor and adjust dosing as required. Follow-Up Labs Follow-Up Labs: Trough: Vancomycin Date/Time Labs Ordered Labs to be done on [date and time ordered]: 08/20/24 19:30
[2024-08-19 09:21] VITALS: BP 119/79; PULSE 67; RESP 18; TEMP 36.6; O2SAT 99
[2024-08-19 09:22] VITALS: PULSE 69
[2024-08-19] MEDS: 0.9% Saline Lock 10 ML Syringe IV (09:26)
[2024-08-19] MEDS: Vancomycin HCl 1,500 MG in 0.9% Normal Saline (500mL Bag) 500 ML 250 MG IV (09:26)
[2024-08-19] MEDS: Enoxaparin 40 MG/0.4 ML Syringe SC (09:27)
[2024-08-19] MEDS: Cilostazol 50 MG Tablet PO (09:28)
[2024-08-19] MEDS: Gabapentin 800 MG Tablet PO ×2 (09:28→14:02)
[2024-08-19] MEDS: Tolterodine Tartrate 2 MG CAP.SA PO (09:28)
[2024-08-19] MEDS: DULoxetine Hcl 60 MG Capsule 120 MG PO (09:28)
[2024-08-19] MEDS: Baclofen 10 MG Tablet 20 MG PO ×2 (09:28→14:01)
--- NOTE | 2024-08-19 09:31 | PN.HOSP_ITS ---
Reason for Visit Reason for Visit: Diagnoses Paraplegia, unspecified (08/08/24) Local infection of the skin and subcutaneous tissue, unspecified (08/08/24) Pressure ulcer of sacral region, stage 3 (08/08/24) Pressure ulcer of sacral region, stage 4 (08/08/24) Pressure ulcer of unspecified site, unspecified stage (08/08/24) Urinary tract infection, site not specified (08/08/24) Subjective Subjective Patient seen complains of being constipated this a.m. Ordered DeCola suppository. Objective Data Objective Data Vital Signs: Vital Signs Temp Pulse Resp BP Pulse Ox O2 Del Method 97.9 F 67 18 119/79 99 Room Air 08/19/24 09:21 08/19/24 09:21 08/19/24 09:21 08/19/24 09:21 08/19/24 09:21 08/19/24 09:21 Oxygen Delivery Method Room Air Weight: 82.7 kg Body Mass Index (BMI) 24.0 Intake & Output: Intake and Output for Last 24 Hours 08/17/24 08/18/24 08/19/24 23:59 23:59 23:59 Intake Total 1075 / 1075 1376.67 / 1376.67 Output Total 2850 / 2850 800 / 1300 500 / 500 Balance -1775 / -1775 576.67 / 76.67 -500 / -500 Lab / Micro Data 08/19/24 06:50 08/19/24 06:50 Labs: Laboratory Results - last 24 hr 08/19/24 06:50: WBC 10.9, RBC 4.21, Hgb 11.5 L, Hct 36.3 L, MCV 86.2, MCH 27.3, MCHC 31.7 L, RDW Std Deviation 45.8 H, RDW Coeff of Domonique 14.6, Plt Count 343, MPV 9.4, Immature Gran % (Auto) 0.800, Neut % (Auto) 76.2 H, Lymph % (Auto) 16.7 L, [place] % (Auto) 5.1, Eos % (Auto) 0.6, Baso % (Auto) 0.6, Absolute Neuts (auto) 8.3 H, Absolute Lymphs (auto) 1.82, Nucleated RBC % 0, Sodium 140, Potassium 3.7, Chloride 107, Carbon Dioxide 30.0, Anion Gap 3 L, BUN 11, Creatinine 0.35 L , Estim Creat Clear Calc 246.70, Est GFR (MDRD) Af Amer 262, Est GFR (MDRD) Non- Af 217, BUN/Creatinine Ratio 31.5 H, Glucose 105, Calcium 8.7, Vancomycin Trough 13.6 Micro: Microbiology 08/14/24 16:30 Bone - Sacral Bone Gram Stain - Final 08/14/24 16:30 Bone - Sacral Bone Wound Culture - Final No growth aerobically. 08/14/24 16:30 Bone - Sacral Bone Anaerobic Culture - Preliminary No growth in 48 hours. 08/14/24 16:29 Tissue - Sacral Pressure Sore Gram Stain - Final 08/14/24 16:29 Tissue - Sacral Pressure Sore Wound Culture - Final No growth aerobically. 08/14/24 16:29 Tissue - Sacral Pressure Sore Anaerobic Culture - Preliminary No growth in 48 hours. 08/08/24 22:26 Blood Culture (Wb) - Other Blood Culture - Final No growth in 5 days. 08/09/24 02:00 Wound - Sacral Gram Stain - Final 08/09/24 02:00 Wound - Sacral Wound Culture - Final Meth. resistant Staph. aureus Enterococcus faecalis 08/09/24 02:00 Wound - Sacral Skin and Soft Tissue MRSA/MSSA (PCR - Final Meth. resistant Staph. aureus 08/08/24 21:40 Urine, Catheterized Urine Culture - Final Enterobacter cloacae complex Physical Exam Narrative GENERAL: cooperative HEENT: Atraumatic; normocephalic EYES; Anicteric, Normal Conjunctiva NECK; supple, normal thyroid, RESPIRATORY: Diminished to auscultation CARDIOVASCULAR: Regular S1 S2, GI: soft, normoactive bowel sounds, : No Renal angle tenderness; EXTREMITIES: No edema, no clubbing, MUSCULOSKELETAL: Wound VAC in the sacral region NEURO: Awake; oriented to place and. SKIN: No Rash PSYCH; Flat affect Assessment & Plan Assessment/Plan (1) Complicated urinary tract infection: (2) Sacral decubitus ulcer, stage III: PLAN: Plan Patient is a 44-year-old female with 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 An assessment of infected decubitus wound was made admitted to a monitored bed. Patient underwent wound debridement with placement of wound VAC 1. Acute infected sacral decubitus ?Patient underwent excision of necrotic sacral ulcer down to the bone as well as biopsy of sacral bone by Dr. Barton on 08/14/2024 previous cultures are growing MRSA as well as Enterococcus. Patient managed with vancomycin cefepime and Flagyl cultures from patient wound debridement still pending ? 08/17/2024; culture still pending adjusted patient pain medication regimen pain improved. ? 08/18/2024; patient seen pain is tolerable. Awaiting case management to set up home IV antibiotics as well as low air mattress prior to discharge. Cultures still pending ? 08/19/2024; patient scheduled to have a wound VAC placed. Patient antibiotics for home (vancomycin and ertapenem with weekly labs and stop date on 09/25/2024) written by Dr. Ferrell 2. Acute complicated UTI ? Secondary to chronic indwelling suprapubic Charles catheter patient grew Enterobacter in the urine on appropriate antibiotic therapy 3. History of spinal abscess ? With resultant paraplegia and neurogenic bladder for which patient has a chronic suprapubic catheter. 4. Physical deconditioning ? Requested for PT OT eval and long term care social worker to assist with discharge planning 5. Anemia ? Secondary to chronic disorder monitoring H&H and transfuse if patient becomes symptomatic or hemoglobin falls below 7 6. Previous history of polysubstance dependence ? With history of IV drug abuse with hep C 7. Depression with anxiety ? Patient is on Cymbalta and Klonopin 8. Tobacco dependence ? Counseled on cessation, offered nicotine patch for tobacco cravings 9. Chronic hypotension ? Patient is on Florinef as well as midodrine 10. DVT prophylaxis ? On enoxaparin 11. Patient requires a hospital bed due to needing frequent changes in position, to alleviate pain, to prevent ongoing pressure areas to assist in healing of current pressure areas, that is not feasible in an ordinary bed. Related to Dx of Acute infected sacral decubitus. 12. Constipation ? Treated symptomatically with DeCola suppository Time spent in the patient's overall evaluation,decision-making process, review of diagnostic data, adjustment of management, discussion with other providers, nursing nursing and ancillary staff involved in patient's care documentation, 36 Minutes Charges/Coding Visit Charges Inpatient E&M: 41950 Subs Hosp L2
[2024-08-19] MEDS: Bisacodyl 10 MG Suppository RC (09:43)
--- NOTE | 2024-08-19 11:34 | WOUNDNOTE ---
wound photo: sacrum
[2024-08-19] MEDS: Ertapenem Sod 1 GM in 0.9% Normal Saline (50mL MB+) 50 ML IV (12:12)
--- NOTE | 2024-08-19 12:29 | CASEMGMT ---
Addendum entered by Lakesha Granados 08/19/24 14:06: Patient has order for discharge. Wound nurse switched patien to home wound vac. Antibiotics completed. ANTONIETTA CRAMER requested PCU assistant corporate secretary to schedule transport for patient. ANTONIETTA CRAMER sent discharge instructions to [facility]. Original Note: ANTONIETTA CRAMER updated by wound nurse that home vac has been approved. ANTONIETTA CRAMRE called [employer] and hospital bed has been delivered. ANTONIETTA CRAMER updated hospitalist. ANTONIETTA CRAMER updated Cami at [facility] and sent updated clinicals. IV atbs are to be delivered this evening and start of care tomorrow morning. CM to send discharge information when available. ANTONIETTA CRAMER in to discuss discharge with patient and update regarding [facility], IV ATBs, and wound vac. Patient voiced appreciation and states she will need transport setup to take her home. CM will coordinate with PCU community development planner after antibiotic completed. CM will continue to follow this patient and plan for a safe discharge.
--- NOTE | 2024-08-19 12:59 | DS.PCM_ITS ---
Providers Date of Admission: 08/08/24 Date of Discharge: 08/19/24 Primary Care Physician: Dr. Qamar Zimmer MD Consultations 08/09/24 00:51 Consult: Infectious Disease Routine Consulting Provider: Pradeep Ferrell Reason for Consult: Infected decubitous ulcer, complicated UTI EMERGENT Consult: No Notified: Yes Date Notified: 08/11/24 Time Notified: 06:55 Method of Notification: Text Consult: Onc/Wound/tubing supervisor Routine Comment: Reason for Consult:: infected decubitous ulcer 08/12/24 15:04 Consult: Plastic Surgery Routine Consulting Provider: Pradeep Barton Reason for Consult: Back decub EMERGENT Consult: No Notified: Yes Date Notified: 08/12/24 Time Notified: 15:17 Method of Notification: Text Reason For Visit: INFECTED DECUBITOUS ULCER COMPLICATED UTI Diagnosis Discharge Diagnosis (1) Complicated urinary tract infection: Status: Acute Code(s): N39.0 - Urinary tract infection, site not specified (2) Sacral decubitus ulcer, stage III: Status: Acute Code(s): L89.153 - Pressure ulcer of sacral region, stage 3 Plan Patient is a 44-year-old female with 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 An assessment of infected decubitus wound was made admitted to a monitored bed. Patient underwent wound debridement with placement of wound VAC 1. Acute infected sacral decubitus ?Patient underwent excision of necrotic sacral ulcer down to the bone as well as biopsy of sacral bone by Dr. Barton on 08/14/2024 previous cultures are growing MRSA as well as Enterococcus. Patient managed with vancomycin cefepime and Flagyl cultures from patient wound debridement still pending ? 08/17/2024; culture still pending adjusted patient pain medication regimen pain improved. ? 08/18/2024; patient seen pain is tolerable. Awaiting case management to set up home IV antibiotics as well as low air mattress prior to discharge. Cultures still pending ? 08/19/2024; patient scheduled to have a wound VAC placed. Patient antibiotics for home (vancomycin and ertapenem with weekly labs and stop date on 09/25/2024) written by Dr. Ferrell 2. Acute complicated UTI ? Secondary to chronic indwelling suprapubic Charles catheter patient grew Enterobacter in the urine on appropriate antibiotic therapy 3. History of spinal abscess ? With resultant paraplegia and neurogenic bladder for which patient has a chronic suprapubic catheter. 4. Physical deconditioning ? Requested for PT OT eval and social media intern to assist with discharge planning 5. Anemia ? Secondary to chronic disorder monitoring H&H and transfuse if patient becomes symptomatic or hemoglobin falls below 7 6. Previous history of polysubstance dependence ? With history of IV drug abuse with hep C 7. Depression with anxiety ? Patient is on Cymbalta and Klonopin 8. Tobacco dependence ? Counseled on cessation, offered nicotine patch for tobacco cravings 9. Chronic hypotension ? Patient is on Florinef as well as midodrine 10. DVT prophylaxis ? On enoxaparin 11. Patient requires a hospital bed due to needing frequent changes in position, to alleviate pain, to prevent ongoing pressure areas to assist in healing of current pressure areas, that is not feasible in an ordinary bed. Related to Dx of Acute infected sacral decubitus. 12. Constipation ? Treated symptomatically with DeCola suppository Time spent in the patient's overall evaluation,decision-making process, review of diagnostic data, adjustment of management, discussion with other providers, nursing nursing and ancillary staff involved in patient's care documentation, 36 Minutes Medications at Discharge Home Medications baclofen 20 mg tablet 20 mg PO 4X/DAY muscle spasm 10/19/19 duloxetine 60 mg capsule,delayed release 120 mg PO DAILY depression 10/19/19 oxybutynin chloride 10 mg tablet,extended release 24 hr 10 mg PO DAILY bladder 12/24/19 clonazepam 0.5 mg tablet 0.5 mg PO TID PRN Anxiety #9 tabs 07/05/20 cilostazol 50 mg tablet 50 mg PO BID antiplatelet 08/15/22 meloxicam 15 mg tablet 15 mg PO DAILY spasms 08/15/22 ferrous sulfate 325 mg (65 mg iron) tablet (FeroSul) 325 mg PO QODAY 03/27/24 gabapentin 800 mg tablet 800 mg PO 4X/DAY 03/31/24 nystatin 100,000 unit/gram topical cream 1 applic topical PRN PRN skin irritation 03/31/24 sodium chloride 0.9 % irrigation solution 1 irrig irrigation UD 03/31/24 ascorbate calcium (vitamin C) 500 mg tablet 500 mg PO QODAY 08/08/24 ertapenem 1 gram solution for injection 1 g IV Q24 38 days #38 ea 08/18/24 vancomycin 1.25 gram intravenous solution 1.25 g IV Q12H 38 days 08/18/24 L.acidophil,salivari-Bifido bifidum-Strep thermoph 175 mg capsule 1 cap PO TID 30 days #90 caps 08/19/24 bisacodyl 10 mg rectal suppository (Gentle Laxative (bisacodyl)) 10 mg NE DAILY PRN constipation #30 ea 08/19/24 fludrocortisone 0.1 mg tablet 0.05 mg (1/2 x 0.1 mg) PO BREAKFAST #30 tabs 08/19/24 midodrine 5 mg tablet 10 mg (2 x 5 mg) PO TIDCM #90 tabs 08/19/24 ondansetron 4 mg disintegrating tablet 4 mg PO Q6H PRN nausea and vomiting #30 tabs 08/19/24 oxycodone 5 mg tablet 10 mg (2 x 5 mg) PO Q4H PRN PRN Pain Score 4-10 5 days #20 tabs 08/19/24 Physical Exam Narrative GENERAL: cooperative HEENT: Atraumatic; normocephalic EYES; Anicteric, Normal Conjunctiva NECK; supple, normal thyroid, RESPIRATORY: Diminished to auscultation CARDIOVASCULAR: Regular S1 S2, GI: soft, normoactive bowel sounds, : No Renal angle tenderness; EXTREMITIES: No edema, no clubbing, MUSCULOSKELETAL: Wound VAC in the sacral region NEURO: Awake; oriented to place and. SKIN: No Rash PSYCH; Flat affect Weight / BMI Weight Weight: 82.7 kg Body Mass Index (BMI) 24.0 ABG / Lab / Microbiology Data 08/19/24 06:50 08/19/24 06:50 Laboratory: Laboratory Results - last 24 hr 08/19/24 06:50: WBC 10.9, RBC 4.21, Hgb 11.5 L, Hct 36.3 L, MCV 86.2, MCH 27.3, MCHC 31.7 L, RDW Std Deviation 45.8 H, RDW Coeff of Domonique 14.6, Plt Count 343, MPV 9.4, Immature Gran % (Auto) 0.800, Neut % (Auto) 76.2 H, Lymph % (Auto) 16.7 L, [place] % (Auto) 5.1, Eos % (Auto) 0.6, Baso % (Auto) 0.6, Absolute Neuts (auto) 8.3 H, Absolute Lymphs (auto) 1.82, Nucleated RBC % 0, Sodium 140, Potassium 3.7, Chloride 107, Carbon Dioxide 30.0, Anion Gap 3 L, BUN 11, Creatinine 0.35 L , Estim Creat Clear Calc 246.70, Est GFR (MDRD) Af Amer 262, Est GFR (MDRD) Non- Af 217, BUN/Creatinine Ratio 31.5 H, Glucose 105, Calcium 8.7, Vancomycin Trough 13.6 Microbiology: Microbiology 08/14/24 16:30 Bone - Sacral Bone Gram Stain - Final 08/14/24 16:30 Bone - Sacral Bone Wound Culture - Final No growth aerobically. 08/14/24 16:30 Bone - Sacral Bone Anaerobic Culture - Preliminary No growth in 48 hours. 08/14/24 16:29 Tissue - Sacral Pressure Sore Gram Stain - Final 08/14/24 16:29 Tissue - Sacral Pressure Sore Wound Culture - Final No growth aerobically. 08/14/24 16:29 Tissue - Sacral Pressure Sore Anaerobic Culture - Preliminary No growth in 48 hours. 08/08/24 22:26 Blood Culture (Wb) - Other Blood Culture - Final No growth in 5 days. 08/09/24 02:00 Wound - Sacral Gram Stain - Final 08/09/24 02:00 Wound - Sacral Wound Culture - Final Meth. resistant Staph. aureus Enterococcus faecalis 08/09/24 02:00 Wound - Sacral Skin and Soft Tissue MRSA/MSSA (PCR - Final Meth. resistant Staph. aureus 08/08/24 21:40 Urine, Catheterized Urine Culture - Final Enterobacter cloacae complex D/C Instructions Discharge Diet: No restrictions Discharge Activity: Return to Normal Activity Call your doctor if you observe: Fever of 101 or Higher, Shortness of breath, Fainting spells and Chest pain Meaningful Use Info Meaningful Use Meaningful Use Diagnoses (Choose all that apply): None applicable Ischemic Stroke Statin Dosing Therapy Reference: STATIN DOSE THERAPY REFERENCE: * Patients > 75 years receive moderate or high dose statin therapy. * Patients 75 years or YOUNGER should receive HIGH intensity statin dose unless contraindicated. You will be required to document reason for non-treatment if statin daily dose does not meet guidelines. HIGH DOSE STATIN THERAPY DAILY Atorvastatin > than or = to 40 mg Rosuvastatin > than or = to 20 mg Amlodipine + Atorvastatin > than or = to 2.5/40 mg Ezetimibe + Simvastatin 10/80 mg Simvastatin 80mg Discharge Plan Admission Admit Date/Time: 08/08/24 23:51 Attending Provider: Armando Quinones Primary Care Provider: Qamar Zimmer Consulting Providers: Ethel De Los Santos; Pradeep Ferrell; Pradeep Barton; Elier Pugh Discharge Orders/Prescriptions Prescriptions: New vancomycin 1.25 gram recon soln 1.25 g IV Q12H 38 Days Rx Instructions: stop date 09/25/24. Dx: sacral osteo. Weekly bmp, cbc, vanc trough, and esr. Fax to [phone]. Routine picc care per protocol. ertapenem 1 gram Recon Soln 1 g IV Q24 38 Days Qty: 38 0RF Rx Instructions: stop date 09/25/24. Dx: sacral osteo. Weekly bmp, cbc, vanc trough, LFT, and esr. Fax to [phone]. Routine picc care per protocol. oxycodone 5 mg Tablet 10 mg PO Q4H PRN PRN (Reason: Pain Score 4-10) 5 Days Qty: 20 0RF midodrine 5 mg Tablet 10 mg PO TIDCM Qty: 90 0RF L.acidoph,saliva-B.bif-S.therm 175 mg Capsule 1 cap PO TID 30 Days Qty: 90 0RF fludrocortisone 0.1 mg Tablet 0.05 mg PO BREAKFAST Qty: 30 0RF ondansetron 4 mg tablet,disintegrating 4 mg PO Q6H PRN (Reason: nausea and vomiting) Qty: 30 0RF bisacodyl [Gentle Laxative (bisacodyl)] 10 mg suppository 10 mg NE DAILY PRN (Reason: constipation) Qty: 30 0RF Continued baclofen 20 MG tablet 20 mg PO 4X/DAY duloxetine 60 MG capsule,delayed release(DR/EC) 120 mg PO DAILY oxybutynin chloride 10 MG tablet extended release 24hr 10 mg PO DAILY clonazepam 0.5 MG tablet 0.5 mg PO TID PRN (Reason: Anxiety) Qty: 9 0RF cilostazol 50 mg tablet 50 mg PO BID meloxicam 15 mg tablet 15 mg PO DAILY ascorbate calcium (vitamin C) 500 mg tablet 500 mg PO QODAY Rx Instructions: take with methenamine for uti prevention ferrous sulfate [FeroSul] 325 mg (65 mg iron) tablet 325 mg PO QODAY gabapentin 800 mg tablet 800 mg PO 4X/DAY nystatin 100,000 unit/gram cream 1 applic topical PRN PRN (Reason: skin irritation) sodium chloride 0.9 % solution 1 irrig irrigation UD Referrals / Follow Up: Qamar Zimmer MD [Primary Care Provider] - Disposition Disposition (needs filled in before D/C Order can be placed): Home Health Service Charges/Coding Visit Charges Inpatient E&M: 67647 Disch Hosp >30min
--- NOTE | 2024-08-19 13:10 | WOUNDNOTE ---
Pt switched over to the home VAC. reviewed alarms, how to charge the VAC, how to change the canister, and how to return the VAC once finished. pt aware to take wound VAC dressing and canister to wound center appts.
--- NOTE | 2024-08-19 13:12 | WOUNDNOTE ---
Pt has wound center appt scheduled for 08/25/24.
[2024-08-19 14:00] VITALS: BP 115/76; PULSE 74; RESP 16; TEMP 36.6; O2SAT 98
== END 2024-08-19 18:08 | disposition home health service (06) | DRG 364 ==
LOC: ED 23:27 → PCU 08-09 00:21
PROVIDERS: Family Medicine; Internal Medicine; Surgery Plastic and Reconstructive Surgery; Admitting Provider Family Medicine; Emergency Provider Emergency Medicine; PCP Family Medicine; Visit Provider Internal Medicine
PROC: F08 Physical Rehabilitation and Diagnostic Audiology, Rehabilitation, Activities of Daily Living Treatment (ICD-10-PCS; principal; 2024-08-14 14:20)
DX: L89.153 Pressure ulcer of sacral region, stage 3 (principal); M46.28 Osteomyelitis of vertebra, sacral and sacrococcygeal region; G82.20 Paraplegia, unspecified; T83.510A Infection and inflammatory reaction due to cystostomy catheter, initial encounter; L03.312 Cellulitis of back [any part except buttock and flank]; B95.2 Enterococcus as the cause of diseases classified elsewhere; D50.9 Iron deficiency anemia, unspecified; I95.89 Other hypotension; F17.200 Nicotine dependence, unspecified, uncomplicated; F41.8 Other specified anxiety disorders; K59.00 Constipation, unspecified; N39.0 Urinary tract infection, site not specified; B95.62 Methicillin resistant Staphylococcus aureus infection as the cause of diseases classified elsewhere; Z79.02 Long term (current) use of antithrombotics/antiplatelets; N31.9 Neuromuscular dysfunction of bladder, unspecified; Z86.718 Personal history of other venous thrombosis and embolism
CPT/HCPCS: 36415; 36569; 71045; 74177; 80048; 80053; 80202; 80307; 81001; 83605; 83735; 84100; 85025; 85610; 85730; 87015; 87040; 87070; 87075; 87077; 87086; 87088; 87102; 87116; 87149; 87176; 87186; 87205; 87206; 87640; 88305; 88307; 88311; 93005; 97110; 97140; 97162; 97165; 97802; 97803; 99284; J2997; J7030; J7040; J7050; J7120; Q9967; A4216; J2405

== ENCOUNTER 2024-09-08 15:00 | Outpatient (RCR) | payer MEDICAID, SELFPAY ==
[2024-08-25 09:41] VITALS: BP 100/79; PULSE 99; RESP 18; TEMP 36.3; BMI 19.5
--- NOTE | 2024-08-25 12:16 | HP.PCM_ITS ---
History of Present Illness Date of Service: 08/25/24 Chief Complaint: Sacral ulcer History of Wound: ROGELIO MARRERO is a delightful 44-year-old female with past medical history of depression, anxiety, intravenous drug use and polysubstance abuse resulting in hepatitis C, history of VTE, chronic paraplegia secondary to a spinal abscess at the level of C4-C5 (some ability to move extremities/lift her hips, but limited otherwise), neurogenic bladder with suprapubic catheters, chronic hypotension, tobacco use (continues to smoke), and a stage IV sacral decubitus ulcer. Patient reports that in the 5 years of her paraplegia, she has never had a sacral ulcer but developed 1 this summer when she was using a roller on her lower back for massage. She does not have a pressure offloading bed at home and lives with a roommate. Surgery by Dr. Barton on 08/14/24 - Excision of necrotic sacral ulcer down to bone, 9 x7 cm and Biopsy of the sacral bone and Placement of non-disposable irrigating wound VAC. Pathology of the bone showed acute and chronic osteomyelitis. Operative cultures negative. Acid Fast Bacilli cx and fungal cx still pending. Wound culture from 08/09/24 positive for MRSA and Enterococcus faecalis. Dr. Ferrell, ID, managing antibiotics. She is on home IV Vancomycin and Ertapenem for 6 weeks. Stop date 09/25/24. Wound care is the wound VAC. Progress of Wound: Sacral ulcer is pink with granulation tissue. Bone is palpable. Prisca wound is very excoriated from the wound VAC drape. She states that the prisca wound has been washed with saline at the time of the dressing changes. She denies use of soap and water to this area. She states that she has been having a lot of issues with pain control. [facility] [place] Medical History MRSA (methicillin resistant staph aureus) culture positive Decubitus ulcer of sacral region, stage 2 Sacral wound Ovarian cyst Hepatitis C Kidney stones Chronic indwelling Charles catheter DVT (deep venous thrombosis) Paraplegia Spinal abscess Neurogenic bladder Anxiety and depression Chronic hypotension History of intravenous drug abuse Esophageal reflux Home Medications ?Medication ?Instructions ?Recorded ?Last Taken ?Type baclofen 20 mg tablet 20 mg PO 4X/DAY muscle spasm 10/19/19 03/31/24 History duloxetine 60 mg capsule,delayed 120 mg PO DAILY depression 10/19/19 03/31/24 History release oxybutynin chloride 10 mg 10 mg PO DAILY bladder 12/24/19 03/31/24 History tablet,extended release 24 hr clonazepam 0.5 mg tablet 0.5 mg PO TID PRN Anxiety #9 tabs 07/05/20 05/20/23 Rx cilostazol 50 mg tablet 50 mg PO BID antiplatelet 08/15/22 03/31/24 History meloxicam 15 mg tablet 15 mg PO DAILY spasms 08/15/22 05/20/23 History ferrous sulfate 325 mg (65 mg 325 mg PO QODAY 03/27/24 03/30/24 History iron) tablet (FeroSul) gabapentin 800 mg tablet 800 mg PO 4X/DAY 03/31/24 03/31/24 History nystatin 100,000 unit/gram topical 1 applic topical PRN PRN skin 03/31/24 Unknown History cream irritation sodium chloride 0.9 % irrigation 1 irrig irrigation UD 03/31/24 03/31/24 History solution ascorbate calcium (vitamin C) 500 500 mg PO QODAY 08/08/24 Unknown History mg tablet ertapenem 1 gram solution for 1 g IV Q24 38 days #38 ea 08/18/24 Unknown Rx injection vancomycin 1.25 gram intravenous 1.25 g IV Q12H 38 days 08/18/24 Unknown Rx solution L.acidophil,salivari-Bifido 1 cap PO TID 30 days #90 caps 08/19/24 Unknown Rx bifidum-Strep thermoph 175 mg capsule bisacodyl 10 mg rectal suppository 10 mg NV DAILY PRN constipation 08/19/24 Unknown Rx (Gentle Laxative (bisacodyl)) #30 ea fludrocortisone 0.1 mg tablet 0.05 mg (1/2 x 0.1 mg) PO 08/19/24 Unknown Rx BREAKFAST #30 tabs midodrine 5 mg tablet 10 mg (2 x 5 mg) PO TIDCM #90 tabs 08/19/24 Unknown Rx ondansetron 4 mg disintegrating 4 mg PO Q6H PRN nausea and 08/19/24 Unknown Rx tablet vomiting #30 tabs ibuprofen 600 mg tablet 600 mg PO Q6H PRN pain 14 days #52 08/25/24 Unknown Rx tabs oxycodone 5 mg tablet 5 mg PO BID PRN pain (scale score 08/25/24 Unknown Rx 7-10) 5 days #10 tabs Allergy/AdvReac Type Severity Reaction Status Date / Time Penicillins AdvReac PT UNSURE Verified 08/25/24 09:36 OF REACTION Family History Mother Multiple sclerosis Surgical History History of surgery on lower extremity S/P debridement History of suprapubic catheter Hx of spinal surgery Social History household members: none housing: house Smoking Status: Current every day smoker tobacco type: cigarettes alcohol intake: current Alcohol type: other substance use type: former substance user Date of last use: Prior history of IV drug abuse with heroin and methamphetamine. ROS Constitutional Constitutional: Denies chills or fever(s) Eyes Eyes: Reports none ENT HEENT: Reports none Cardiovascular Cardiovascular: Denies chest pain or dyspnea Respiratory/Chest Respiratory/Chest: Reports none Gastrointestinal Gastrointestinal: Reports none Genitourinary Genitourinary: Reports none Musculoskeletal Musculoskeletal: Reports none Integumentary Integumentary: Reports skin ulcer Neurologic Neurologic: Reports as per HPI Psychiatric Psychiatric: Reports as per HPI Endocrine Endocrinology: Reports none Hematologic/Lymphatic Hematologic/Lymphatic: Reports none Allergic/Immunologic Allergic/Immunologic: Reports none Vital Signs Vital Signs Vital Signs: 08/25/24 09:41 Temperature 97.4 F L Temperature Source Temporal Pulse Rate 99 Respiratory Rate 18 Blood Pressure 100/79 Blood Pressure Mean 86 Blood Pressure Source Monitor Blood Pressure Position Sitting Blood Pressure Location Right Arm Oxygen Delivery Method Room Air Weight Weight: 147 lb 11.355 oz Body Mass Index (BMI) 19.5 Physical Exam Narrative Sacral ulcer a nice beefy pink. Bone is exposed. Prisca wound is very excoriated from the wound VAC. Const alert and oriented x3 General Appearance: cooperative HEENT normocephalic Head and Scalp: atraumatic Eyes General Eye: normal appearance of both eyes Neck full ROM Lymph Lymphatic: Negative for no lymphedema noted Resp normal respiratory effort, normal air movement and clear to auscultation bilaterally Effort and Inspection: able to speak in complete sentences Cardio regular rate and regular rhythm Extremity normal to inspection and normal capillary refill Skin Wound Narrative: see above Neuro oriented x3 and CN's II-XII intact bilaterally Psych mental status grossly normal and cooperative Debridement Note Debridement Note Wound debrided: Sacral ulcer Laterality: Not Applicable Wound Grade/Stage: Stage IV Type of Debridement: Excisional debridement Anesthesia Used: 5% Lidocaine Gel Depth: Down to and including healthy tissue, in the subcutaneous layer, to muscle and to bone Percentage of wound debrided: 100 Instrument Used: 7mm curette Tissue Removed: Non viable tissue and slough into the muscle. Bone exposed but not debrided Severity: Fat Layer Exposed Amount of bleeding with debridement: Mild Bleeding Controlled with: Pressure and Compression and gauze Patient tolerated procedure: Patient tolerated procedure well Post-Debridement Measurements and Additional Note: Post-Debridement Measurements/Treatment - Nurse 1 - General Ulcer Assessment Start: 08/25/24 09:41 Freq: Status: Active Protocol: NICOLAS Activity Type Activity Date Activity User E-sign Co-sign Detail Recorded Client Recorded Date Recorded By Document 08/25/24 09:41 JOHN [id number] 08/25/24 09:48 KW 08/25/24 09:41 - Today's Visit Information Type of service Initial Visit Arrival Mode Wheelchair Accompanied by Kimberli- [facility] aide Patient Identification Verified (Name & Yes ) Height and Weight Height 6 ft 1 in Weight 147 lb 11.355 oz Weight in Pounds 147.7 lbs Body Mass Index (BMI) 19.5 BMI Classification Normal BSA - Che 1.89 Vital Signs Temperature (97.8 F-99.1 F) 97.4 F L Temperature Source Temporal Pulse Rate (60-100) 99 Pulse Location Monitor Respiratory Rate (12-18) 18 Respiratory rate source Observation Oxygen Delivery Method Room Air Blood Pressure (90/60-120/80) 100/79 Blood Pressure Mean 86 Source Monitor Position Sitting Blood Pressure Location Right Arm History Since Last Visit- (Skip if this is Patient's initial visit) Left Footwear No Footwear Right Footwear No Footwear Pain Scale: 0-10 Numeric Is Patient Pain Free? Yes Communication Assessment Preferred language Croatian Insemination Worker Required No Able to Read Yes Able to Write Yes Communication Tools None Caregiver Communication Skills No Impairment Impairment Right Hearing Abillity Normal Left Hearing Abillity Normal Visual Assistive Devices None Teaching Assessment Preferences Verbal,Written, Demonstration Barriers to Learning None Readiness To Learn Excellent Willingness to Engage in Self Management High Activies Readiness to Engage in Self Management High Activities Anxiety Level Calm Cooperation Cooperative Perception Coherent Interest in Health Problem Asks Questions Education Importance Acknowledges Need Does Patient Smoke tobacco or other Yes substances Smoking Status Current every day smoker Functional Assessment Recent Decline in Ability to Perform Bathing,Lower Body Dressing, Toileting, Transferring Culture/Uatsdin/Political Science Chair Cultural/Uatsdin Needs that may affect No Treatment Plan Would you allow our hospital deputy sheriff court services to No meet you for the purpose of spiritual/ emotional support? Political Science Chair to contact place of restoration No WC - Nurse 1 - General Ulcer Measurement Start: 08/25/24 09:41 Freq: Status: Active Protocol: Activity Type Activity Date Activity User E-sign Co-sign Detail Recorded Client Recorded Date Recorded By Document 08/25/24 09:41 JOHN [id number] 08/25/24 09:48 KW 08/25/24 09:41 Wound Center Nurse 1 #1 Sacral -Current Size (cm) - Length 9.2 -Current Size (cm) - Width 5.5 -Current Size (cm) - Depth 2 -Total Square Cm 50.60 -Date of Last Picture (Recall this 08/25/24 field) -Undermining/Tunneling Yes -Undermining/Tunneling Starts (O'clock 7 ) -Undermining/Tunneling Ends (O'clock) 9 -Maximum Distance (cm) 2.6 -Exudate Amt Small -Exudate Type Serosanguineous -Wound Margin Thickened & Rolled Under -Granulation Amt Medium (34-66%) -Granulation Quality Red -Necrosis Amt Medium (34-66%) -Necrotic Tissue Type Adherent Slough -Texture (Prisca-wound Skin Appearance) Assessed -Moisture (Prisca-wound Skin Appearance) Assessed -Color (Prisca-wound Skin Appearance) Assessed, Erythema -Temperature (Prisca-wound Skin No Abnormality Appearance) (Pt Warm) -Tenderness on Palpation (Prisca-wound No Skin Appearance) -Ulcer Cleansing Soap and Water -Foul Odor after Cleansing No -Anesthetic Used 4% Lidocaine Solution WC - Nurse 2 - General Ulcer CM Notes Start: 08/25/24 09:41 Freq: Status: Active Protocol: Activity Type Activity Date Activity User E-sign Co-sign Detail Recorded Client Recorded Date Recorded By Document 08/25/24 10:08 JEFFREY [id number] 08/25/24 10:14 JEFFREY 08/25/24 10:08 Wound Center Nurse 2 -Time 10:08 -Correct Patient Yes -Correct Side, Site, Position Yes -Correct Procedure Yes -Procedure Performed Yes -Type of Procedure Debridement -Clinical Debridement Muscle / Fascia -Tissue Removed Muscle,Fascia, Tendon -Post Debridement (cm) - Length 9.6 -Post Debridement (cm) - Width 6.6 -Post Debridement (cm) - Depth 1.4 -Total Square (Post) (cm) 63.36 -Area of Debridement (cm) - Length 9.6 -Area of Debridement (cm) - Width 6.6 -Total Square (Area) (cm) 63.36 -Tunneling No -Undermining/Tunneling Yes -Undermining/Tunneling Starts (O'clock 7 ) -Undermining/Tunneling Ends (O'clock) 10 -Maximum Distance (cm) 2.1 -Circular Undermining No -Wound/Ulcer Outcome Not Healed -Ulcer Cleansing Rinsed/ Irrigated with Saline -Foul Odor after Cleansing No -Bioengineered Tissue No -Bleeding Controlled with Pressure -Treatment Response Procedure Tolerated Well -Offloading No -Pressure Reduction Wheelchair cushion, Mattress overlay -Debridement - Muscle / Fascia, 1st Yes 20sq cm -Debridement, Muscle/Fascia, ea addt'l 3 20sq cm or part thereof Pain Scale: 0-10 Numeric Is Patient Pain Free? Yes - Nurse 3 - General Ulcer D/C NN Start: 08/25/24 09:41 Freq: Status: Active Protocol: Activity Type Activity Date Activity User E-sign Co-sign Detail Recorded Client Recorded Date Recorded By Document 08/25/24 10:26 JOHN [id number] 08/25/24 10:28 DL 08/25/24 10:26 Wound Care Center Nurse 3 #1 Sacral -Ulcer Cleansing Rinsed/ Irrigated with Saline -Foul Odor after Cleansing No -Primary Dressing Applied Hysept ($) -Primary Dressing Covered/Secured with Secured with Tape -Other Covering ABD -NPWT Application Charge NPWT & Debridement (nc ) -Wound Comment(s) Pt to resume Vac 08/29/24 Treatment Response Procedure Tolerated Well Pain Scale: 0-10 Numeric Is Patient Pain Free? Yes WC - Visit Discharge Discharge Condition Stable Ambulatory Status Wheelchair Transportation Private Auto Facility Type Alf Care Facility Orders Sent Yes Charges/Coding Procedures Integumentary [id number]: [id number] Global Visit Assessment/Plan Assessment/Plan (1) Decubitus ulcer of sacral region, stage 4: CODE(S): L89.154 - Pressure ulcer of sacral region, stage 4 (2) Chronic paraplegia: CODE(S): G82.20 - Paraplegia, unspecified (3) Tobacco use: CODE(S): Z72.0 - Tobacco use PLAN: Plan Patient evaluated at the wound healing center. Wound care - Wound VAC holiday until Sunday to allow prisca wound to heal. Wash ulcer and prisca wound with antibacterial soap and water and pat dry. Place Dakin's 0.25% moistened gauzed into the ulcer and cover with ABD/super absorber twice daily. She will restart the wound VAC at 125 mmHg on Sunday08/29/24. She is having a lot of issues with pain control. Discussed using Acetaminophen and Ibuprofen to help with pain control (she will hold her Meloxicam while she is taking the Ibuprofen). Prescribed Oxycodone 5 mg BID prn for breakthrough pain (10 tabs). PDMP reviewed. Had an in depth discussion about using the Oxy as last resort, due to her past history of abuse. She follow up with Dr. Ferrell in a couple weeks. He is managing her antibiotics. Encouraged patient to stop smoking as it may have deleterious effects on wound healing. Follow up one week with Dr. Barton.
--- NOTE | 2024-08-27 13:10 | WC ---
PHOTO 08/25/24 SACRAL
--- NOTE | 2024-08-27 13:11 | WC ---
PHOTO SACRAL 08/25/24
[2024-09-03 14:39] VITALS: BP 92/47; PULSE 83; RESP 16; TEMP 36.3; BMI 19.5
--- NOTE | 2024-09-03 16:09 | PN.PCM_ITS ---
History of Present Illness Date of Service: 09/03/24 Chief Complaint: Sacral ulcer History of Wound: ROGELIO MARRERO is a delightful 44-year-old female with past medical history of depression, anxiety, intravenous drug use and polysubstance abuse resulting in hepatitis C, history of VTE, chronic paraplegia secondary to a spinal abscess at the level of C4-C5 (some ability to move extremities/lift her hips, but limited otherwise), neurogenic bladder with suprapubic catheters, chronic hypotension, tobacco use (continues to smoke), and a stage IV sacral decubitus ulcer. Patient reports that in the 5 years of her paraplegia, she has never had a sacral ulcer but developed 1 this summer when she was using a roller on her lower back for massage. She does not have a pressure offloading bed at home and lives with a roommate. Surgery by Dr. Barton on 08/14/24 - Excision of necrotic sacral ulcer down to bone, 9 x7 cm and Biopsy of the sacral bone and Placement of non-disposable irrigating wound VAC. Pathology of the bone showed acute and chronic osteomyelitis. Operative cultures negative. Acid Fast Bacilli cx and fungal cx still pending. Wound culture from 08/09/24 positive for MRSA and Enterococcus faecalis. Dr. Ferrell, ID, managing antibiotics. She is on home IV Vancomycin and Ertapenem for 6 weeks. Stop date 09/25/24. Wound care is the wound VAC. Progress of Wound: Sacral ulcer is stable. Wound bed is pink, it has some hypergranulation in some areas. She states that the wound VAC is keeping a good seal. Bone is palpable and has fibrous tissue over it. Prisca wound is still excoriated from the wound VAC drape. She states that she has not had an improvement in the periwound even we took like the 4-day wound VAC holiday last week. She continues to have pain control issues. She states that she stopped taking her meloxicam so she could take ibuprofen instead. Objective Data Objective Data Vital Signs: Vital Signs Temp Pulse Resp BP O2 Del Method 97.4 F L 83 16 92/47 L Room Air 09/03/24 14:39 09/03/24 14:39 09/03/24 14:39 09/03/24 14:39 08/25/24 09:41 Oxygen Delivery Method Room Air Weight: 147 lb 11.355 oz Body Mass Index (BMI) 19.5 Charges/Coding Procedures Integumentary 111xxx-113xx: 31850 Global Visit Debridement Note Debridement Note Wound debrided: Sacral ulcer Laterality: Not Applicable Wound Grade/Stage: Stage IV Type of Debridement: Excisional debridement Anesthesia Used: 5% Lidocaine Gel Depth: Down to and including healthy tissue, in the subcutaneous layer, to muscle and to bone Percentage of wound debrided: 100 Instrument Used: 7mm curette Tissue Removed: Non viable tissue and slough into the muscle. Bone exposed but not debrided Severity: Fat Layer Exposed Amount of bleeding with debridement: Mild Bleeding Controlled with: Pressure and Compression and gauze Patient tolerated procedure: Patient tolerated procedure well Post-Debridement Measurements and Additional Note: Post-Debridement Measurements/Treatment WC - Nurse 1 - General Ulcer Assessment Start: 08/25/24 09:41 Freq: Status: Active Protocol: WC.SURENDRA Activity Type Activity Date Activity User E-sign Co-sign Detail Recorded Client Recorded Date Recorded By Document 08/25/24 09:41 KW [id number] 08/25/24 09:48 KW Document 09/03/24 14:39 CP [id number] 09/03/24 14:42 CP 08/25/24 09/03/24 09:41 14:39 - Today's Visit Information Type of service Initial Visit Follow-up Visit (Physician/ELECTRICAL INSTRUMENT TECHNICIAN ) Arrival Mode Wheelchair Wheelchair Transfer Assistance Manual Transfer Assist (Other) 1 Accompanied by [facility] aide Patient Identification Verified (Name & Yes Yes ) Safety Precautions NA Height and Weight Height 6 ft 1 in Weight 147 lb 11.355 oz Weight in Pounds 147.7 lbs Body Mass Index (BMI) 19.5 19.5 BMI Classification Normal Normal BSA - Che 1.89 Vital Signs Temperature (97.8 F-99.1 F) 97.4 F L 97.4 F L Temperature Source Temporal Temporal Pulse Rate (60-100) 99 83 Pulse Location Monitor Monitor Respiratory Rate (12-18) 18 16 Respiratory rate source Observation Observation Oxygen Delivery Method Room Air Blood Pressure (90/60-120/80) 100/79 92/47 L Blood Pressure Mean (mm Hg) 86 62 Source Monitor Monitor Position Sitting Sitting Blood Pressure Location Right Arm Left Arm History Since Last Visit- (Skip if this is Patient's initial visit) Have you changed medications since your No last visit? Any new allergies or adverse reactions No Had a fall/change in ADL's that may No increase risk of falls Signs or symptoms of abuse and/or No neglect since last visit Have you been in the hospital since your No last visit? Has dressing in place as prescribed Yes Has compression in place as prescribed N/A Has offloadiing in place as prescribed N/A Experienced any changes in pain level or No management Left Footwear No Footwear Right Footwear No Footwear Pain Scale: 0-10 Numeric Is Patient Pain Free? Yes Yes Communication Assessment Preferred language [place] [employer] Required No Able to Read Yes Able to Write Yes Communication Tools None Caregiver Communication Skills No Impairment Impairment Right Hearing Abillity Normal Left Hearing Abillity Normal Visual Assistive Devices None Teaching Assessment Preferences Verbal,Written, Demonstration Barriers to Learning None Readiness To Learn Excellent Willingness to Engage in Self Management High Activies Readiness to Engage in Self Management High Activities Anxiety Level Calm Cooperation Cooperative Perception Coherent Interest in Health Problem Asks Questions Education Importance Acknowledges Need Does Patient Smoke tobacco or other Yes substances Smoking Status Current every day smoker Functional Assessment Recent Decline in Ability to Perform Bathing,Lower Body Dressing, Toileting, Transferring Culture/Bahai/Materials Inspector Cultural/Bahai Needs that may affect No Treatment Plan Would you allow our hospital instructor watch assembly to No meet you for the purpose of spiritual/ emotional support? Materials Inspector to contact place of mandaeism No WC - Nurse 1 - General Ulcer Measurement Start: 08/25/24 09:41 Freq: Status: Active Protocol: Activity Type Activity Date Activity User E-sign Co-sign Detail Recorded Client Recorded Date Recorded By Document 08/25/24 09:41 KW [id number] 08/25/24 09:48 KW Document 09/03/24 14:39 CP [id number] 09/03/24 14:42 CP 08/25/24 09/03/24 09:41 14:39 Wound Center Nurse 1 #1 Sacral -Current Size (cm) - Length 9.2 8.5 -Current Size (cm) - Width 5.5 5.5 -Current Size (cm) - Depth 2 2.5 -Total Square Cm 50.60 46.75 -Date of Last Picture (Recall this 08/25/24 field) -Undermining/Tunneling Yes Yes -Undermining/Tunneling Starts (O'clock 7 6 ) -Undermining/Tunneling Ends (O'clock) 9 10 -Maximum Distance (cm) 2.6 2.5 -Exudate Amt Small Small -Exudate Type Serosanguineous Serosanguineous -Wound Margin Thickened & Flat & Intact Rolled Under -Granulation Amt Medium (34-66%) Large (67-100%) -Granulation Quality Red Red -Slough/Fibrin Yes -Necrosis Amt Medium (34-66%) Medium (34-66%) -Necrotic Tissue Type Adherent Slough Adherent Slough -Structure Exposed Bone -Texture (Prisca-wound Skin Appearance) Assessed Rash -Moisture (Prisca-wound Skin Appearance) Assessed No Abnormality -Color (Prisca-wound Skin Appearance) Assessed, No Abnormality Erythema -Temperature (Prisca-wound Skin No Abnormality No Abnormality Appearance) (Pt Warm) (Pt Warm) -Tenderness on Palpation (Prisca-wound No No Skin Appearance) -Ulcer Cleansing Soap and Water Soap and Water -Foul Odor after Cleansing No No -Anesthetic Used 4% Lidocaine 4% Lidocaine Solution Solution WC - Nurse 2 - General Ulcer CM Notes Start: 08/25/24 09:41 Freq: Status: Active Protocol: Activity Type Activity Date Activity User E-sign Co-sign Detail Recorded Client Recorded Date Recorded By Document 08/25/24 10:08 [id number] 08/25/24 10:14 Document 09/03/24 15:04 [id number] 09/03/24 15:09 GM Edit Result 09/03/24 15:04 GM (1) [id number] 09/03/24 15:16 GM Edit Result 09/03/24 15:04 GM (2) [id number] 09/03/24 16:01 GM (1) #1 Sacral - Clinical Debridement Bone => Muscle / Fascia - Tissue Removed Non-viable tissue => Muscle - Debridement - Muscle / Fascia, 1st => Yes 20sq cm - Debridement - Bone, 1st 20sq cm Yes => - Debridement, Bone, ea addt'l 20sq cm 1 => or part thereof (2) #1 Sacral - Debridement, Muscle/Fascia, ea addt'l => 2 20sq cm or part thereof 08/25/24 09/03/24 10:08 15:04 Wound Center Nurse 2 #1 Sacral -Time 10:08 15:04 -Correct Patient Yes Yes -Correct Side, Site, Position Yes Yes -Correct Procedure Yes Yes -Procedure Performed Yes Yes -Type of Procedure Debridement Debridement -Clinical Debridement Muscle / Fascia Muscle / Fascia -Tissue Removed Muscle,Fascia, Muscle Tendon -Post Debridement (cm) - Length 9.6 9.3 -Post Debridement (cm) - Width 6.6 5.5 -Post Debridement (cm) - Depth 1.4 1.7 -Total Square (Post) (cm) 63.36 51.15 -Area of Debridement (cm) - Length 9.6 9.3 -Area of Debridement (cm) - Width 6.6 5.5 -Total Square (Area) (cm) 63.36 51.15 -Tunneling No No -Undermining/Tunneling Yes No -Undermining/Tunneling Starts (O'clock 7 ) -Undermining/Tunneling Ends (O'clock) 10 -Maximum Distance (cm) 2.1 -Circular Undermining No No -Wound/Ulcer Outcome Not Healed Not Healed -Ulcer Cleansing Rinsed/ Rinsed/ Irrigated with Irrigated with Saline Saline -Foul Odor after Cleansing No No -Bioengineered Tissue No No -Bleeding Controlled with Pressure Pressure -Treatment Response Procedure Procedure Tolerated Well Tolerated Well -Offloading No -Pressure Reduction Wheelchair cushion, Mattress overlay -Debridement - Muscle / Fascia, 1st Yes Yes 20sq cm -Debridement, Muscle/Fascia, ea addt'l 3 2 20sq cm or part thereof Pain Scale: 0-10 Numeric Is Patient Pain Free? Yes Yes WC - Nurse 3 - General Ulcer D/C NN Start: 08/25/24 09:41 Freq: Status: Active Protocol: Activity Type Activity Date Activity User E-sign Co-sign Detail Recorded Client Recorded Date Recorded By Document 08/25/24 10:26 DL [id number] 08/25/24 10:28 DL Document 09/03/24 15:17 KW [id number] 09/03/24 15:18 KW 08/25/24 09/03/24 10:26 15:17 Wound Care Center Nurse 3 #1 Sacral -Ulcer Cleansing Rinsed/ Irrigated with Saline -Foul Odor after Cleansing No -Negative Pressure Wound Therapy Continue -Setting (mmHg) 125 -Negative Pressure is Continuous -Primary Dressing Applied Hysept ($) -Primary Dressing Covered/Secured with Secured with Tape -Other Covering ABD -NPWT Application Charge NPWT & NPWT & Debridement (nc Debridement (nc ) ) -Wound Comment(s) Pt to resume Vac 08/29/24 Treatment Response Procedure Tolerated Well Pain Scale: 0-10 Numeric Is Patient Pain Free? Yes Yes WC - Visit Discharge Discharge Condition Stable Ambulatory Status Wheelchair Transportation Private Auto Facility Type Strategies Analyst Care Facility Orders Sent Yes Assessment/Plan Assessment/Plan (1) Decubitus ulcer of sacral region, stage 4: CODE(S): L89.154 - Pressure ulcer of sacral region, stage 4 (2) Chronic paraplegia: CODE(S): G82.20 - Paraplegia, unspecified (3) Tobacco use: CODE(S): Z72.0 - Tobacco use PLAN: Plan Patient evaluated at the wound healing center. Wound care - Wound VAC at 125 mmHg 3 times per week. Wash ulcer and prisca wound with antibacterial soap and water and pat dry at the time of the dressing changes. She is having a lot of issues with pain control. Discussed using Acetaminophen and Ibuprofen to help with pain control (she will hold her Meloxicam while she is taking the Ibuprofen). Prescribed Oxycodone 5 mg BID prn for breakthrough pain (6 tabs). PDMP reviewed. Had an in depth discussion about using the Oxy as last resort, due to her past history of abuse. She states that she really nee ds it for the days she has dressing changes. She follows up with Dr. Ferrell today. He is managing her antibiotics. Encouraged patient to stop smoking as it may have deleterious effects on wound healing. Follow up one week with Dr. Barton.
[2024-09-08 15:01] VITALS: BP 84/49; PULSE 99; RESP 18; TEMP 36.9; BMI 19.5
--- NOTE | 2024-09-08 18:28 | PCM.WC.PN ---
History of Present Illness Date of Service: 09/08/24 Chief Complaint: Sacral ulcer History of Wound: ROGELIO MARRERO is a delightful 44-year-old female with past medical history of depression, anxiety, intravenous drug use and polysubstance abuse resulting in hepatitis C, history of VTE, chronic paraplegia secondary to a spinal abscess at the level of C4-C5 (some ability to move extremities/lift her hips, but limited otherwise), neurogenic bladder with suprapubic catheters, chronic hypotension, tobacco use (continues to smoke), and a stage IV sacral decubitus ulcer. Patient reports that in the 5 years of her paraplegia, she has never had a sacral ulcer but developed 1 this summer when she was using a roller on her lower back for massage. She does not have a pressure offloading bed at home and lives with a roommate. Surgery by Dr. Barton on 08/14/24 - Excision of necrotic sacral ulcer down to bone, 9 x7 cm and Biopsy of the sacral bone and Placement of non-disposable irrigating wound VAC. Pathology of the bone showed acute and chronic osteomyelitis. Operative cultures negative. Acid Fast Bacilli cx and fungal cx still pending. Wound culture from 08/09/24 positive for MRSA and Enterococcus faecalis. Dr. Ferrell, ID, managing antibiotics. She is on home IV Vancomycin and Ertapenem for 6 weeks. Stop date 09/25/24. Wound care is the wound VAC. Progress of Wound: Sacral ulcer is stable. Wound bed is pink, it has some hypergranulation in some areas. She states that the wound VAC is keeping a good seal. Bone is palpable and has fibrous tissue over it. Prisca wound is still excoriated from the wound VAC drape. She states that she has not had an improvement in the periwound even we took like the 4-day wound VAC holiday last week. She continues to have pain control issues. She states that she stopped taking her meloxicam so she could take ibuprofen instead. Subjective Subjective Here for follow-up 3 weeks postop. Doing well overall. Reports excellent dressing changes at home with the wound VAC. She has been getting excellent home health team care. Reports that she has been pressure offloading on a pressure offloading bed and has been improving her diet. No growth from OR cultures. Continues to follow with ID though for initial cultures (on Vancomycin) Objective Data Objective Data Vital Signs: Vital Signs Temp Pulse Resp BP O2 Del Method 98.4 F 99 18 84/49 L Room Air 09/08/24 15:01 09/08/24 15:01 09/08/24 15:01 09/08/24 15:01 08/25/24 09:41 Oxygen Delivery Method Room Air Weight: 147 lb 11.355 oz Body Mass Index (BMI) 19.5 Charges/Coding Procedures Integumentary 111xxx-113xx: 55429 Zakia bone 20 sq cm/< Add On Codes: 40757 Zakia bone add-on Physical Exam Narrative Sacral ulcer a nice beefy pink. Fascia/bone centrally, but healing well. No fluid collections. Wound measures 8.5 x 5 cm Const alert and oriented x3 General Appearance: cooperative HEENT normocephalic Head and Scalp: atraumatic Eyes General Eye: normal appearance of both eyes Neck full ROM Lymph Lymphatic: Negative for no lymphedema noted Resp normal respiratory effort, normal air movement and clear to auscultation bilaterally Effort and Inspection: able to speak in complete sentences Cardio regular rate and regular rhythm Extremity normal to inspection and normal capillary refill Skin Wound Narrative: see above Neuro oriented x3 and CN's II-XII intact bilaterally Psych mental status grossly normal and cooperative Debridement Note Debridement Note Wound debrided: Sacral wound Laterality: Not Applicable Type of Debridement: Excisional debridement Anesthesia Used: 4% Lidocaine Solution Depth: to bone Percentage of wound debrided: 100 Instrument Used: 7mm curette Severity: Necrosis of Bone Amount of bleeding with debridement: Moderate Bleeding Controlled with: Compression and gauze Patient tolerated procedure: Patient tolerated procedure well Post-Debridement Measurements and Additional Note: Post-Debridement Measurements/Treatment - Nurse 1 - General Ulcer Assessment Start: 08/25/24 09:41 Freq: Status: Active Protocol: NICOLAS Activity Type Activity Date Activity User E-sign Co-sign Detail Recorded Client Recorded Date Recorded By Document 08/25/24 09:41 KW [id number] 08/25/24 09:48 KW Document 09/03/24 14:39 CP [id number] 09/03/24 14:42 CP Document 09/08/24 15:01 ML [id number] 09/08/24 15:11 ML 08/25/24 09/03/24 09/08/24 09:41 14:39 15:01 - Today's Visit Information Type of service Initial Visit Follow-up Visit Follow-up Visit (Physician/EQUIPMENT MAINT TECH (Physician/EQUIPMENT MAINT TECH ) ) Arrival Mode Wheelchair Wheelchair Wheelchair Transfer Assistance Manual Manual Transfer Assist (Other) 1 Accompanied by [facility] aide Patient Identification Verified (Name & Yes Yes Yes ) Patient Requires Transmission-Based No Precautions Safety Precautions NA Height and Weight Height 6 ft 1 in Weight 147 lb 11.355 oz Weight in Pounds 147.7 lbs Body Mass Index (BMI) 19.5 19.5 19.5 BMI Classification Normal Normal Normal BSA - Che 1.89 Vital Signs Temperature (97.8 F-99.1 F) 97.4 F L 97.4 F L 98.4 F Temperature Source Temporal Temporal Temporal Pulse Rate (60-100) 99 83 99 Pulse Location Monitor Monitor Monitor Respiratory Rate (12-18) 18 16 18 Respiratory rate source Observation Observation Observation Oxygen Delivery Method Room Air Blood Pressure (90/60-120/80) 100/79 92/47 L 84/49 L Blood Pressure Mean (mm Hg) 86 62 60 Source Monitor Monitor Monitor Position Sitting Sitting Semi-Fowlers Blood Pressure Location Right Arm Left Arm Right Arm History Since Last Visit- (Skip if this is Patient's initial visit) Have you changed medications since your No No last visit? Any new allergies or adverse reactions No No Had a fall/change in ADL's that may No No increase risk of falls Signs or symptoms of abuse and/or No No neglect since last visit Have you been in the hospital since your No No last visit? Has dressing in place as prescribed Yes Yes Has compression in place as prescribed N/A N/A Has offloadiing in place as prescribed N/A Yes Experienced any changes in pain level or No No management Left Footwear No Footwear Right Footwear No Footwear Pain Scale: 0-10 Numeric Is Patient Pain Free? Yes Yes Yes Communication Assessment Preferred language [place] Elementary Educator Required No Able to Read Yes Able to Write Yes Communication Tools None Caregiver Communication Skills No Impairment Impairment Right Hearing Abillity Normal Left Hearing Abillity Normal Visual Assistive Devices None Teaching Assessment Preferences Verbal,Written, Demonstration Barriers to Learning None Readiness To Learn Excellent Willingness to Engage in Self Management High Activies Readiness to Engage in Self Management High Activities Anxiety Level Calm Cooperation Cooperative Perception Coherent Interest in Health Problem Asks Questions Education Importance Acknowledges Need Does Patient Smoke tobacco or other Yes substances Smoking Status Current every day smoker Functional Assessment Recent Decline in Ability to Perform Bathing,Lower Body Dressing, Toileting, Transferring Culture/Restorationism/Boiler Washer Cultural/Restorationism Needs that may affect No Treatment Plan Would you allow our hospital salt plant operator to No meet you for the purpose of spiritual/ emotional support? Boiler Washer to contact place of advent No WC - Nurse 1 - General Ulcer Measurement Start: 08/25/24 09:41 Freq: Status: Active Protocol: Activity Type Activity Date Activity User E-sign Co-sign Detail Recorded Client Recorded Date Recorded By Document 08/25/24 09:41 KW [id number] 08/25/24 09:48 KW Document 09/03/24 14:39 CP [id number] 09/03/24 14:42 CP Document 09/08/24 15:01 ML [id number] 09/08/24 15:11 ML 08/25/24 09/03/24 09/08/24 09:41 14:39 15:01 Wound Center Nurse 1 #1 Sacral -Current Size (cm) - Length 9.2 8.5 8.4 -Current Size (cm) - Width 5.5 5.5 6.4 -Current Size (cm) - Depth 2 2.5 2.2 -Total Square Cm 50.60 46.75 53.76 -Date of Last Picture (Recall this 08/25/24 field) -Undermining/Tunneling Yes Yes -Undermining/Tunneling Starts (O'clock 7 6 ) -Undermining/Tunneling Ends (O'clock) 9 10 -Maximum Distance (cm) 2.6 2.5 -Exudate Amt Small Small Medium -Exudate Type Serosanguineous Serosanguineous Serosanguineous -Wound Margin Thickened & Flat & Intact Distinct, Rolled Under Outline Attached -Granulation Amt Medium (34-66%) Large (67-100%) Medium (34-66%) -Granulation Quality Red Red -Slough/Fibrin Yes -Necrosis Amt Medium (34-66%) Medium (34-66%) Medium (34-66%) -Necrotic Tissue Type Adherent Slough Adherent Slough Adherent Slough -Structure Exposed Bone -Texture (Prisca-wound Skin Appearance) Assessed Rash Assessed -Moisture (Prisca-wound Skin Appearance) Assessed No Abnormality -Color (Prisca-wound Skin Appearance) Assessed, No Abnormality Assessed Erythema -Temperature (Prisca-wound Skin No Abnormality No Abnormality No Abnormality Appearance) (Pt Warm) (Pt Warm) (Pt Warm) -Tenderness on Palpation (Prisca-wound No No Skin Appearance) -Ulcer Cleansing Soap and Water Soap and Water -Foul Odor after Cleansing No No No -Anesthetic Used 4% Lidocaine 4% Lidocaine 4% Lidocaine Solution Solution Solution WC - Nurse 2 - General Ulcer CM Notes Start: 08/25/24 09:41 Freq: Status: Active Protocol: Activity Type Activity Date Activity User E-sign Co-sign Detail Recorded Client Recorded Date Recorded By Document 08/25/24 10:08 JF [id number] 08/25/24 10:14 JF Document 09/03/24 15:04 GM [id number] 09/03/24 15:09 GM Edit Result 09/03/24 15:04 GM (1) [id number] 09/03/24 15:16 GM Edit Result 09/03/24 15:04 GM (2) [id number] 09/03/24 16:01 GM Document 09/08/24 16:13 [id number] 09/08/24 16:16 JF (1) #1 Sacral - Clinical Debridement Bone => Muscle / Fascia - Tissue Removed Non-viable tissue => Muscle - Debridement - Muscle / Fascia, 1st => Yes 20sq cm - Debridement - Bone, 1st 20sq cm Yes => - Debridement, Bone, ea addt'l 20sq cm 1 => or part thereof (2) #1 Sacral - Debridement, Muscle/Fascia, ea addt'l => 2 20sq cm or part thereof 08/25/24 09/03/24 09/08/24 10:08 15:04 16:13 Wound Center Nurse 2 #1 Sacral -Time 10:08 15:04 16:13 -Correct Patient Yes Yes Yes -Correct Side, Site, Position Yes Yes Yes -Correct Procedure Yes Yes Yes -Procedure Performed Yes Yes Yes -Type of Procedure Debridement Debridement Debridement -Clinical Debridement Muscle / Fascia Muscle / Fascia Muscle / Fascia -Tissue Removed Muscle,Fascia, Muscle Muscle,Fascia Tendon -Post Debridement (cm) - Length 9.6 9.3 8 -Post Debridement (cm) - Width 6.6 5.5 5.0 -Post Debridement (cm) - Depth 1.4 1.7 2.5 -Total Square (Post) (cm) 63.36 51.15 40.0 -Area of Debridement (cm) - Length 9.6 9.3 8 -Area of Debridement (cm) - Width 6.6 5.5 5.0 -Total Square (Area) (cm) 63.36 51.15 40.0 -Tunneling No No No -Undermining/Tunneling Yes No No -Undermining/Tunneling Starts (O'clock 7 ) -Undermining/Tunneling Ends (O'clock) 10 -Maximum Distance (cm) 2.1 -Circular Undermining No No No -Wound/Ulcer Outcome Not Healed Not Healed Not Healed -Ulcer Cleansing Rinsed/ Rinsed/ Rinsed/ Irrigated with Irrigated with Irrigated with Saline Saline Saline -Foul Odor after Cleansing No No No -Bioengineered Tissue No No No -Bleeding Controlled with Pressure Pressure Pressure -Treatment Response Procedure Procedure Procedure Tolerated Well Tolerated Well Tolerated Well -Offloading No No -Pressure Reduction Wheelchair Wheelchair cushion, cushion Mattress overlay -Debridement - Muscle / Fascia, 1st Yes Yes Yes 20sq cm -Debridement, Muscle/Fascia, ea addt'l 3 2 1 20sq cm or part thereof Pain Scale: 0-10 Numeric Is Patient Pain Free? Yes Yes Yes WC - Nurse 3 - General Ulcer D/C NN Start: 08/25/24 09:41 Freq: Status: Active Protocol: Activity Type Activity Date Activity User E-sign Co-sign Detail Recorded Client Recorded Date Recorded By Document 08/25/24 10:26 DL [id number] 08/25/24 10:28 DL Document 09/03/24 15:17 KW [id number] 09/03/24 15:18 KW Document 09/08/24 16:26 DL [id number] 09/08/24 16:27 DL 08/25/24 09/03/24 09/08/24 10:26 15:17 16:26 Wound Care Center Nurse 3 #1 Sacral -Ulcer Cleansing Rinsed/ Soap and Water Irrigated with Saline -Foul Odor after Cleansing No No -Negative Pressure Wound Therapy Continue Continue -Setting (mmHg) 125 125 -Negative Pressure is Continuous Continuous -Primary Dressing Applied Hysept ($) -Primary Dressing Covered/Secured with Secured with Tape -Other Covering ABD -NPWT Application Charge NPWT & NPWT & NPWT & Debridement (nc Debridement (nc Debridement (nc ) ) ) -Wound Comment(s) Pt to resume Dressing Vac 08/29/24 applied per Lisette Berry today. Treatment Response Procedure Procedure Tolerated Well Tolerated Well Pain Scale: 0-10 Numeric Is Patient Pain Free? Yes Yes Yes WC - Visit Discharge Discharge Condition Stable Stable Ambulatory Status Wheelchair Wheelchair Transportation Private Auto Private Auto Facility Type Transportation Equipment [facility] Orders Sent Yes Yes Assessment/Plan Assessment/Plan (1) Decubitus ulcer of sacral region, stage 4: CODE(S): L89.154 - Pressure ulcer of sacral region, stage 4 PLAN: Continue TIW Vac changes and weekly f/u in the wound care center Continue pressure offloading. F/u in 2 weeks with repeat labs (nutrition labs) and for nutrition consult in addition to wound care visit.
== END 2024-09-20 23:59 | disposition home or self-care (01) ==
LOC: WC 15:00
PROVIDERS: PCP Family Medicine; Referring Provider Surgery Plastic and Reconstructive Surgery; Visit Provider Nurse Practitioner Family
DX: L89.154 Pressure ulcer of sacral region, stage 4 (principal); G82.20 Paraplegia, unspecified; I95.89 Other hypotension; N31.9 Neuromuscular dysfunction of bladder, unspecified; F32.A Depression, unspecified; F41.9 Anxiety disorder, unspecified; F17.210 Nicotine dependence, cigarettes, uncomplicated; Z79.02 Long term (current) use of antithrombotics/antiplatelets; Z79.899 Other long term (current) drug therapy; Z87.39 Personal history of other diseases of the musculoskeletal system and connective tissue
CPT/HCPCS: 11043; 11044; 11046; 11047; 99214; G0463

== ENCOUNTER 2024-10-13 15:00 | Outpatient (RCR) | payer MEDICAID, SELFPAY ==
[2024-09-21 00:08] VITALS: BP 84/49; PULSE 99; RESP 18; TEMP 36.9; BMI 19.5
[2024-09-29 15:40] VITALS: BP 97/41; PULSE 72; RESP 18; TEMP 36.1; BMI 19.5
--- NOTE | 2024-09-29 17:28 | PN.PCM_ITS ---
History of Present Illness Date of Service: 09/29/24 Chief Complaint: Sacral ulcer History of Wound: ROGELIO MARRERO is a delightful 44-year-old female with past medical history of depression, anxiety, intravenous drug use and polysubstance abuse resulting in hepatitis C, history of VTE, chronic paraplegia secondary to a spinal abscess at the level of C4-C5 (some ability to move extremities/lift her hips, but limited otherwise), neurogenic bladder with suprapubic catheters, chronic hypotension, tobacco use (continues to smoke), and a stage IV sacral decubitus ulcer. Patient reports that in the 5 years of her paraplegia, she has never had a sacral ulcer but developed 1 this summer when she was using a roller on her lower back for massage. She does not have a pressure offloading bed at home and lives with a roommate. Surgery by Dr. Barton on 08/14/24 - Excision of necrotic sacral ulcer down to bone, 9 x7 cm and Biopsy of the sacral bone and Placement of non-disposable irrigating wound VAC. Pathology of the bone showed acute and chronic osteomyelitis. Operative cultures negative. Acid Fast Bacilli cx and fungal cx still pending. Wound culture from 08/09/24 positive for MRSA and Enterococcus faecalis. Dr. Ferrell, ID, managing antibiotics. She is on home IV Vancomycin and Ertapenem for 6 weeks. Stop date 09/25/24. Wound care is the wound VAC. Subjective Subjective Here for follow-up 6 week postop. Doing well overall. Reports excellent dressing changes at home with the wound VAC. She has been getting excellent home health team care. Reports that she has been pressure offloading on a pressure offloading bed and has been improving her diet. Patient met with sap security consultant today upon my request. Reports that this helped. She is still smoking. Has Rx for Chantyx but hasn't started. She's also vaping Objective Data Objective Data Vital Signs: Vital Signs Temp Pulse Resp BP 97 F L 72 18 97/41 L 09/29/24 15:40 09/29/24 15:40 09/29/24 15:40 09/29/24 15:40 Weight: 147 lb 11.355 oz Body Mass Index (BMI) 19.5 Charges/Coding Procedures Integumentary 111xxx-113xx: 03367 Zakia musc/fascia 20 sq cm/< Add On Codes: 60304 Zakia musc/fascia add-on (x2 ) Physical Exam Narrative Sacral ulcer a nice beefy pink. No fluid collections. Wound measures 6 x 7. No exposed bone, just fascia. Some hypertrophic granulation tissue. Some skin irritation from the VAC tape. Possible yeast. Const alert and oriented x3 General Appearance: cooperative HEENT normocephalic Head and Scalp: atraumatic Eyes General Eye: normal appearance of both eyes Neck full ROM Lymph Lymphatic: Negative for no lymphedema noted Resp normal respiratory effort, normal air movement and clear to auscultation bilaterally Effort and Inspection: able to speak in complete sentences Cardio regular rate and regular rhythm Extremity normal to inspection and normal capillary refill Skin Wound Narrative: see above Neuro oriented x3 and CN's II-XII intact bilaterally Psych mental status grossly normal and cooperative Debridement Note Debridement Note Wound debrided: Sacral wound Laterality: Not Applicable Type of Debridement: Excisional debridement Anesthesia Used: 4% Lidocaine Solution Depth: to muscle Percentage of wound debrided: 100 Instrument Used: 5mm curette Severity: Necrosis of Muscle Amount of bleeding with debridement: Moderate Bleeding Controlled with: Compression and gauze Patient tolerated procedure: Patient did not tolerate procedure well Post-Debridement Measurements and Additional Note: Post-Debridement Measurements/Treatment - Nurse 1 - General Ulcer Assessment Start: 09/29/24 15:39 Freq: Status: Active Protocol: NICOLAS Activity Type Activity Date Activity User E-sign Co-sign Detail Recorded Client Recorded Date Recorded By Document 09/29/24 15:40 KW [id number] 09/29/24 15:49 KW 09/29/24 15:40 - Today's Visit Information Type of service Follow-up Visit (Physician/MALT SPECIFICATIONS CONTROL ASSISTANT ) Arrival Mode Wheelchair Transfer Assistance Manual Transfer Assist (Other) x1 Patient Identification Verified (Name & Yes ) Patient Requires Transmission-Based No Precautions Height and Weight Body Mass Index (BMI) 19.5 BMI Classification Normal Vital Signs Temperature (97.8 F-99.1 F) 97 F L Temperature Source Temporal Pulse Rate (60-100) 72 Pulse Location Monitor Respiratory Rate (12-18) 18 Respiratory rate source Observation Blood Pressure (90/60-120/80) 97/41 L Blood Pressure Mean (mm Hg) 59 Source Monitor History Since Last Visit- (Skip if this is Patient's initial visit) Have you changed medications since your No last visit? Any new allergies or adverse reactions No Had a fall/change in ADL's that may No increase risk of falls Signs or symptoms of abuse and/or No neglect since last visit Have you been in the hospital since your No last visit? Has dressing in place as prescribed Yes Has compression in place as prescribed N/A Has offloadiing in place as prescribed Yes Experienced any changes in pain level or No management Pain Scale: 0-10 Numeric Is Patient Pain Free? Yes - Nurse 1 - General Ulcer Measurement Start: 09/29/24 15:39 Freq: Status: Active Protocol: Activity Type Activity Date Activity User E-sign Co-sign Detail Recorded Client Recorded Date Recorded By Document 09/29/24 15:40 KW [id number] 09/29/24 15:49 KW 09/29/24 15:40 Wound Center Nurse 1 #1 Sacral -Current Size (cm) - Length 8 -Current Size (cm) - Width 5.1 -Current Size (cm) - Depth 1.7 -Total Square Cm 40.8 -Exudate Amt Medium -Exudate Type Serosanguineous -Wound Margin Distinct, Outline Attached -Granulation Amt Medium (34-66%) -Granulation Quality Red -Necrosis Amt Medium (34-66%) -Necrotic Tissue Type Adherent Slough -Structure Exposed N/A -Texture (Prisca-wound Skin Appearance) Excoriation, Scarring,Rash -Moisture (Prisca-wound Skin Appearance) Dry/Scaly -Color (Prisca-wound Skin Appearance) No Abnormality -Temperature (Prisca-wound Skin No Abnormality Appearance) (Pt Warm) -Ulcer Cleansing Soap and Water -Foul Odor after Cleansing No -Anesthetic Used 4% Lidocaine Solution - Nurse 2 - General Ulcer CM Notes Start: 09/29/24 15:39 Freq: Status: Active Protocol: Activity Type Activity Date Activity User E-sign Co-sign Detail Recorded Client Recorded Date Recorded By Document 09/29/24 16:11 JF [id number] 09/29/24 16:13 [email or web address] 09/29/24 16:11 Wound Center Nurse 2 -Time 16:12 -Correct Patient Yes -Correct Side, Site, Position Yes -Correct Procedure Yes -Procedure Performed Yes -Type of Procedure Debridement -Clinical Debridement Muscle / Fascia -Tissue Removed Muscle -Post Debridement (cm) - Length 6 -Post Debridement (cm) - Width 7 -Post Debridement (cm) - Depth 1.0 -Total Square (Post) (cm) 42 -Area of Debridement (cm) - Length 6 -Area of Debridement (cm) - Width 7 -Total Square (Area) (cm) 42 -Tunneling No -Undermining/Tunneling No -Circular Undermining No -Wound/Ulcer Outcome Not Healed -Ulcer Cleansing Rinsed/ Irrigated with Saline -Foul Odor after Cleansing No -Bioengineered Tissue No -Bleeding Controlled with Pressure -Treatment Response Procedure Tolerated Well -Offloading No -Debridement - Muscle / Fascia, 1st Yes 20sq cm -Debridement, Muscle/Fascia, ea addt'l 2 20sq cm or part thereof Pain Scale: 0-10 Numeric Is Patient Pain Free? Yes - Nurse 3 - General Ulcer D/C NN Start: 09/29/24 15:39 Freq: Status: Active Protocol: Activity Type Activity Date Activity User E-sign Co-sign Detail Recorded Client Recorded Date Recorded By Document 09/29/24 16:20 [id number] 09/29/24 16:21 09/29/24 16:20 Wound Care Center Nurse 3 #1 Sacral -Primary Dressing Applied Hysept ($), Mepilex Border -Other Dressing pack dakins soaked gauze -Mepilex Border 1 Pain Scale: 0-10 Numeric Is Patient Pain Free? Yes - Visit Discharge Discharge Condition Stable Ambulatory Status Wheelchair Transportation Private Auto Medication Reconcilliation completed & No provided to patient/care provider Clinical Summary of Care Provided Yes Assessment/Plan Assessment/Plan (1) Decubitus ulcer of sacral region, stage 4: CODE(S): L89.154 - Pressure ulcer of sacral region, stage 4 PLAN: Continue TIW Vac changes and weekly f/u in the wound care center, But will do Nystatin powder and some skin care for the next couple of days with WTD dressings instead (short break from the VAC). Continue pressure offloading. F/u in 2 weeks with labs (need albumin and prealbumin) and for nutrition consult in addition to wound care visit. Discussed nicotine/VAPE cessation.
--- NOTE | 2024-10-08 12:45 | NS ---
10/08/24: Called pt to update and notify her that insurance doesn't consider Ensure Clear to be a nutrition supplement and insurance will not cover the cost for it. Pt didn't have any questions for RD at this time and declined to follow-up with this RDN. Pt has RDN contact information and was encouraged to call with any future questions or nutrition concerns. Natalie Smiley RDN, LD
[2024-10-13 15:18] VITALS: BP 94/60; PULSE 99; RESP 16; TEMP 36.4; BMI 19.5
--- NOTE | 2024-10-13 18:20 | PCM.WC.PN ---
History of Present Illness Date of Service: 10/13/24 Chief Complaint: Sacral ulcer History of Wound: ROGELIO MARRERO is a delightful 44-year-old female with past medical history of depression, anxiety, intravenous drug use and polysubstance abuse resulting in hepatitis C, history of VTE, chronic paraplegia secondary to a spinal abscess at the level of C4-C5 (some ability to move extremities/lift her hips, but limited otherwise), neurogenic bladder with suprapubic catheters, chronic hypotension, tobacco use (continues to smoke), and a stage IV sacral decubitus ulcer. Patient reports that in the 5 years of her paraplegia, she has never had a sacral ulcer but developed 1 this summer when she was using a roller on her lower back for massage. She does not have a pressure offloading bed at home and lives with a roommate. Surgery by Dr. Barton on 08/14/24 - Excision of necrotic sacral ulcer down to bone, 9 x7 cm and Biopsy of the sacral bone and Placement of non-disposable irrigating wound VAC. Pathology of the bone showed acute and chronic osteomyelitis. Operative cultures negative. Acid Fast Bacilli cx and fungal cx still pending. Wound culture from 08/09/24 positive for MRSA and Enterococcus faecalis. Dr. Ferrell, ID, managing antibiotics. She is on home IV Vancomycin and Ertapenem for 6 weeks. Stop date 09/25/24. Wound care is the wound VAC. Subjective Subjective 29 Sep 2024: Here for follow-up 6 week postop. Doing well overall. Reports excellent dressing changes at home with the wound VAC. She has been getting excellent home health team care. Reports that she has been pressure offloading on a pressure offloading bed and has been improving her diet. Patient met with design and sales consultant today upon my request. Reports that this helped. She is still smoking. Has Rx for Chantyx but hasn't started. She's also vaping 13 Oct 2024: Still smoking. Reports excellent VAC changes. Objective Data Objective Data Vital Signs: Vital Signs Temp Pulse Resp BP O2 Del Method 97.5 F L 99 16 94/60 Room Air 10/13/24 15:18 10/13/24 15:18 10/13/24 15:18 10/13/24 15:18 10/13/24 15:18 Oxygen Delivery Method Room Air Weight: 147 lb 11.355 oz Body Mass Index (BMI) 19.5 Charges/Coding Procedures Integumentary 111xxx-113xx: 13020 Zakia musc/fascia 20 sq cm/< Add On Codes: 13641 Zakia musc/fascia add-on ( X 2 ) Physical Exam Narrative Sacral ulcer a nice beefy pink. No fluid collections. Wound measures 7.5 x 5.5 cm today. No exposed bone, just fascia. Some hypertrophic granulation tissue. Skin irritation improved . Better overall granulation. Const alert and oriented x3 General Appearance: cooperative HEENT normocephalic Head and Scalp: atraumatic Eyes General Eye: normal appearance of both eyes Neck full ROM Lymph Lymphatic: Negative for no lymphedema noted Resp normal respiratory effort, normal air movement and clear to auscultation bilaterally Effort and Inspection: able to speak in complete sentences Cardio regular rate and regular rhythm Extremity normal to inspection and normal capillary refill Skin Wound Narrative: see above Neuro oriented x3 and CN's II-XII intact bilaterally Psych mental status grossly normal and cooperative Debridement Note Debridement Note Wound debrided: Sacral wound Laterality: Not Applicable Type of Debridement: Excisional debridement Anesthesia Used: 4% Lidocaine Solution Depth: to muscle Percentage of wound debrided: 100 Instrument Used: 7mm curette Severity: Necrosis of Muscle Amount of bleeding with debridement: Mild Bleeding Controlled with: Pressure Patient tolerated procedure: Patient tolerated procedure well Post-Debridement Measurements and Additional Note: Post-Debridement Measurements/Treatment - Nurse 1 - General Ulcer Assessment Start: 09/29/24 15:39 Freq: Status: Active Protocol: .SURENDRA Activity Type Activity Date Activity User E-sign Co-sign Detail Recorded Client Recorded Date Recorded By Document 09/29/24 15:40 [id number] 09/29/24 15:49 Document 10/13/24 15:18 [facility] [id number] 10/13/24 15:28 [facility] 09/29/24 10/13/24 15:40 15:18 - Today's Visit Information Type of service Follow-up Visit Follow-up Visit (Physician/MEDICAL TECHNOLOGIST GENERALIST (Physician/MEDICAL TECHNOLOGIST GENERALIST ) ) Arrival Mode Wheelchair Wheelchair Transfer Assistance Manual Other Transfer Assist (Other) x1 1 total ( caregiver assist Patient Identification Verified (Name & Yes Yes ) Patient Requires Transmission-Based No No Precautions Height and Weight Body Mass Index (BMI) 19.5 19.5 BMI Classification Normal Normal Vital Signs Temperature (97.8 F-99.1 F) 97 F L 97.5 F L Temperature Source Temporal Temporal Pulse Rate (60-100) 72 99 Pulse Location Monitor Monitor Respiratory Rate (12-18) 18 16 Respiratory rate source Observation Observation Oxygen Delivery Method Room Air Blood Pressure (90/60-120/80) 97/41 L 94/60 Blood Pressure Mean (mm Hg) 59 71 Source Monitor Monitor Position Sitting Blood Pressure Location Left Arm History Since Last Visit- (Skip if this is Patient's initial visit) Have you changed medications since your No No last visit? Any new allergies or adverse reactions No No Had a fall/change in ADL's that may No No increase risk of falls Signs or symptoms of abuse and/or No No neglect since last visit Have you been in the hospital since your No No last visit? Has dressing in place as prescribed Yes Yes Has compression in place as prescribed N/A N/A Has offloadiing in place as prescribed Yes N/A Experienced any changes in pain level or No No management Left Footwear Other Footwear (Comment) Right Footwear Other Footwear (Comment) Other Footwear offloading boots Pain Scale: 0-10 Numeric Is Patient Pain Free? Yes Yes WC - Nurse 1 - General Ulcer Measurement Start: 09/29/24 15:39 Freq: Status: Active Protocol: Activity Type Activity Date Activity User E-sign Co-sign Detail Recorded Client Recorded Date Recorded By Document 09/29/24 15:40 [id number] 09/29/24 15:49 Document 10/13/24 15:18 [facility] [id number] 10/13/24 15:28 [facility] 09/29/24 10/13/24 15:40 15:18 Wound Center Nurse 1 #1 Sacral -Combined with other wound No -Current Size (cm) - Length 8 7.2 -Current Size (cm) - Width 5.1 3.6 -Current Size (cm) - Depth 1.7 0.9 -Total Square Cm 40.8 25.92 -Date of Last Picture (Recall this 10/13/24 field) -Photo Taken Yes -Tunneling No -Undermining/Tunneling Yes -Undermining/Tunneling Starts (O'clock 7 ) -Undermining/Tunneling Ends (O'clock) 11 -Maximum Distance (cm) 1.7 -Circular Undermining No -Exudate Amt Medium Large -Exudate Type Serosanguineous Serosanguineous -Wound Margin Distinct, Distinct, Outline Outline Attached Attached -Granulation Amt Medium (34-66%) Large (67-100%) -Granulation Quality [place] -Slough/Fibrin Yes -Necrosis Amt Medium (34-66%) Small (1-33%) -Necrotic Tissue Type Adherent Slough Adherent Slough -Structure Exposed N/A -Texture (Prisca-wound Skin Appearance) Excoriation, Assessed, Scarring,Rash Localized Edema -Moisture (Prisca-wound Skin Appearance) Dry/Scaly Assessed -Color (Prisca-wound Skin Appearance) No Abnormality Assessed -Temperature (Prisca-wound Skin No Abnormality No Abnormality Appearance) (Pt Warm) (Pt Warm) -Tenderness on Palpation (Prisca-wound Yes Skin Appearance) -Ulcer Cleansing Soap and Water Soap and Water -Foul Odor after Cleansing No No -Anesthetic Used 4% Lidocaine 5% Lidocaine Solution Gel WC - Nurse 2 - General Ulcer CM Notes Start: 09/29/24 15:39 Freq: Status: Active Protocol: Activity Type Activity Date Activity User E-sign Co-sign Detail Recorded Client Recorded Date Recorded By Document 09/29/24 16:11 [id number] 09/29/24 16:13 Document 10/13/24 15:46 [id number] 10/13/24 15:49 09/29/24 10/13/24 16:11 15:46 Wound Center Nurse 2 #1 Sacral -Time 16:12 15:46 -Correct Patient Yes Yes -Correct Side, Site, Position Yes Yes -Correct Procedure Yes Yes -Procedure Performed Yes Yes -Type of Procedure Debridement Debridement -Clinical Debridement Muscle / Fascia Muscle / Fascia -Tissue Removed Muscle Muscle,Fascia -Post Debridement (cm) - Length 6 7.5 -Post Debridement (cm) - Width 7 5.5 -Post Debridement (cm) - Depth 1.0 3.6 -Total Square (Post) (cm) 42 41.25 -Area of Debridement (cm) - Length 6 7.5 -Area of Debridement (cm) - Width 7 5.5 -Total Square (Area) (cm) 42 41.25 -Tunneling No No -Undermining/Tunneling No Yes -Undermining/Tunneling Starts (O'clock 7 ) -Undermining/Tunneling Ends (O'clock) 11 -Maximum Distance (cm) 1.7 -Circular Undermining No No -Wound/Ulcer Outcome Not Healed Not Healed -Ulcer Cleansing Rinsed/ Rinsed/ Irrigated with Irrigated with Saline Saline -Foul Odor after Cleansing No No -Bioengineered Tissue No No -Bleeding Controlled with Pressure Pressure -Treatment Response Procedure Procedure Not Tolerated Well Tolerated Well -Offloading No No -Debridement - Muscle / Fascia, 1st Yes Yes 20sq cm -Debridement, Muscle/Fascia, ea addt'l 2 2 20sq cm or part thereof Pain Scale: 0-10 Numeric Is Patient Pain Free? Yes Yes - Nurse 3 - General Ulcer D/C NN Start: 09/29/24 15:39 Freq: Status: Active Protocol: Activity Type Activity Date Activity User E-sign Co-sign Detail Recorded Client Recorded Date Recorded By Document 09/29/24 16:20 KW [id number] 09/29/24 16:21 KW Document 10/13/24 16:20 DL [id number] 10/13/24 16:21 DL 09/29/24 10/13/24 16:20 16:20 Wound Care Center Nurse 3 #1 Sacral -Ulcer Cleansing Not Cleansed -Foul Odor after Cleansing No -Negative Pressure Wound Therapy Continue -Setting (mmHg) 125 -Negative Pressure is Continuous -Primary Dressing Applied Hysept ($), Mepilex Border -Other Dressing pack dakins soaked gauze -NPWT Application Charge NPWT & Debridement (nc ) -Mepilex Border 1 Prisca-Wound Care Barrier Treatment Response Procedure Tolerated Well Pain Scale: 0-10 Numeric Is Patient Pain Free? Yes Yes WC - Visit Discharge Discharge Condition Stable Stable Ambulatory Status Wheelchair Wheelchair Transportation Private Auto Private Auto Medication Reconcilliation completed & No provided to patient/care provider Clinical Summary of Care Provided Yes Facility Type [facility] Orders Sent Yes Assessment/Plan Assessment/Plan (1) Decubitus ulcer of sacral region, stage 4: CODE(S): L89.154 - Pressure ulcer of sacral region, stage 4 PLAN: Continue TIW Vac changes and weekly f/u in the wound care center, Continue Nystatin powder as needed and continue VAC Continue pressure offloading. F/u in 2 weeks with labs (need albumin and prealbumin). Discussed nicotine/VAPE cessation.
--- NOTE | 2024-10-27 10:07 | WC ---
PHOTO 10/13/24 [facility]
== END 2024-10-21 23:59 | disposition home or self-care (01) ==
LOC: WC 15:00
PROVIDERS: PCP Family Medicine; Referring Provider Surgery Plastic and Reconstructive Surgery; Visit Provider Surgery Plastic and Reconstructive Surgery
DX: L89.159 Pressure ulcer of sacral region, unspecified stage (principal); G82.20 Paraplegia, unspecified; I95.89 Other hypotension; N31.9 Neuromuscular dysfunction of bladder, unspecified; F17.200 Nicotine dependence, unspecified, uncomplicated; F32.A Depression, unspecified; F41.9 Anxiety disorder, unspecified; Z79.899 Other long term (current) drug therapy
CPT/HCPCS: 11043; 11046; 97802

== ENCOUNTER 2024-11-03 15:02 | Outpatient (RCR) | payer MEDICAID, SELFPAY ==
[2024-10-22 00:09] VITALS: BP 84/49; PULSE 99; RESP 18; TEMP 36.9; BMI 19.5
[2024-11-03 15:57] VITALS: BP 97/55; PULSE 95; RESP 16; TEMP 36.3; BMI 19.5
--- NOTE | 2024-11-04 07:04 | PN.PCM_ITS ---
History of Present Illness Date of Service: 11/04/24 Chief Complaint: Sacral ulcer History of Wound: ROGELIO MARRERO is a delightful 44-year-old female with past medical history of depression, anxiety, intravenous drug use and polysubstance abuse resulting in hepatitis C, history of VTE, chronic paraplegia secondary to a spinal abscess at the level of C4-C5 (some ability to move extremities/lift her hips, but limited otherwise), neurogenic bladder with suprapubic catheters, chronic hypotension, tobacco use (continues to smoke), and a stage IV sacral decubitus ulcer. Patient reports that in the 5 years of her paraplegia, she has never had a sacral ulcer but developed 1 this summer when she was using a roller on her lower back for massage. She does not have a pressure offloading bed at home and lives with a roommate. Surgery by Dr. Barton on 08/14/24 - Excision of necrotic sacral ulcer down to bone, 9 x7 cm and Biopsy of the sacral bone and Placement of non-disposable irrigating wound VAC. Pathology of the bone showed acute and chronic osteomyelitis. Operative cultures negative. Acid Fast Bacilli cx and fungal cx still pending. Wound culture from 08/09/24 positive for MRSA and Enterococcus faecalis. Dr. Ferrell, ID, managing antibiotics. She is on home IV Vancomycin and Ertapenem for 6 weeks. Stop date 09/25/24. Wound care is the wound VAC. Subjective Subjective 29 Sep 2024: Here for follow-up 6 week postop. Doing well overall. Reports excellent dressing changes at home with the wound VAC. She has been getting excellent home health team care. Reports that she has been pressure offloading on a pressure offloading bed and has been improving her diet. Patient met with food and nutrition supervisor today upon my request. Reports that this helped. She is still smoking. Has Rx for Chantyx but hasn't started. She's also vaping 13 Oct 2024: Still smoking. Reports excellent VAC changes. Current Encounter, 04 Nov 2024: Still smoking. Reports excellent VAC changes. Objective Data Objective Data Vital Signs: Vital Signs Temp Pulse Resp BP O2 Del Method 97.3 F L 95 16 97/55 L Room Air 11/03/24 15:57 11/03/24 15:57 11/03/24 15:57 11/03/24 15:57 11/03/24 15:57 Oxygen Delivery Method Room Air Weight: 147 lb 11.355 oz Body Mass Index (BMI) 19.5 Physical Exam Narrative Sacral ulcer a nice beefy pink. No fluid collections. Wound measures 7 x 4.5 cm today. No exposed bone (1 cm deep), just fascia. Some hypertrophic granulation tissue. Skin irritation improved . Better overall granulation. Const alert and oriented x3 General Appearance: cooperative HEENT normocephalic Head and Scalp: atraumatic Eyes General Eye: normal appearance of both eyes Neck full ROM Lymph Lymphatic: Negative for no lymphedema noted Resp normal respiratory effort, normal air movement and clear to auscultation bilaterally Effort and Inspection: able to speak in complete sentences Cardio regular rate and regular rhythm Extremity normal to inspection and normal capillary refill Skin Wound Narrative: see above Neuro oriented x3 and CN's II-XII intact bilaterally Psych mental status grossly normal and cooperative Debridement Note Debridement Note Wound debrided: Sacral wound (central lower back) Laterality: Not Applicable Wound Grade/Stage: 3 Type of Debridement: Excisional debridement Anesthesia Used: 4% Lidocaine Solution Depth: to muscle Percentage of wound debrided: 100 Instrument Used: 7mm curette Severity: Necrosis of Muscle Amount of bleeding with debridement: Moderate Bleeding Controlled with: Compression and gauze Patient tolerated procedure: Patient tolerated procedure well Post-Debridement Measurements and Additional Note: Post-Debridement Measurements/Treatment - Nurse 1 - General Ulcer Assessment Start: 11/03/24 15:57 Freq: Status: Active Protocol: VIKTOR.LOWPRAKASHT Activity Type Activity Date Activity User E-sign Co-sign Detail Recorded Client Recorded Date Recorded By Document 11/03/24 15:57 [facility] [id number] 11/03/24 16:05 [facility] 11/03/24 15:57 - Today's Visit Information Type of service Initial Visit Arrival Mode Wheelchair Transfer Assistance Other Transfer Assist (Other) caregiver transfers Patient Identification Verified (Name & Yes ) Patient Requires Transmission-Based No Precautions Height and Weight Body Mass Index (BMI) 19.5 BMI Classification Normal Vital Signs Temperature (97.8 F-99.1 F) 97.3 F L Temperature Source Temporal Pulse Rate (60-100) 95 Pulse Location Monitor Respiratory Rate (12-18) 16 Respiratory rate source Observation Oxygen Delivery Method Room Air Blood Pressure (90/60-120/80) 97/55 L Blood Pressure Mean (mm Hg) 69 Source Monitor Position Sitting Blood Pressure Location Right Arm History Since Last Visit- (Skip if this is Patient's initial visit) Have you changed medications since your No last visit? Any new allergies or adverse reactions No Had a fall/change in ADL's that may No increase risk of falls Signs or symptoms of abuse and/or No neglect since last visit Have you been in the hospital since your No last visit? Has dressing in place as prescribed Yes Has compression in place as prescribed N/A Has offloadiing in place as prescribed N/A Experienced any changes in pain level or No management Left Footwear No Footwear Right Footwear No Footwear Other Footwear barefeet Pain Scale: 0-10 Numeric Is Patient Pain Free? Yes - Nurse 1 - General Ulcer Measurement Start: 11/03/24 15:57 Freq: Status: Active Protocol: Activity Type Activity Date Activity User E-sign Co-sign Detail Recorded Client Recorded Date Recorded By Document 11/03/24 15:57 [facility] [id number] 11/03/24 16:05 [facility] 11/03/24 15:57 Wound Center Nurse 1 #1 Sacral -Combined with other wound No -Current Size (cm) - Length 6.3 -Current Size (cm) - Width 4.8 -Current Size (cm) - Depth 1.3 -Total Square Cm 30.24 -Date of Last Picture (Recall this 11/03/24 field) -Photo Taken Yes -Epithelialization Small 1-33% -Tunneling No -Undermining/Tunneling No -Circular Undermining No -Exudate Amt Medium -Exudate Type Serosanguineous -Wound Margin Thickened & Rolled Under -Granulation Amt Large (67-100%) -Granulation Quality [place] -Slough/Fibrin Yes -Necrosis Amt Small (1-33%) -Necrotic Tissue Type Adherent Slough -Texture (Prisca-wound Skin Appearance) Assessed, Scarring -Moisture (Prisca-wound Skin Appearance) Assessed -Color (Prisca-wound Skin Appearance) Assessed -Temperature (Prisca-wound Skin No Abnormality Appearance) (Pt Warm) -Tenderness on Palpation (Prisca-wound No Skin Appearance) -Ulcer Cleansing Soap and Water -Foul Odor after Cleansing No -Anesthetic Used 4% Lidocaine Solution - Nurse 2 - General Ulcer CM Notes Start: 11/03/24 15:57 Freq: Status: Active Protocol: Activity Type Activity Date Activity User E-sign Co-sign Detail Recorded Client Recorded Date Recorded By Document 11/03/24 16:29 JEFFREY [id number] 11/03/24 16:30 JEFFREY 11/03/24 16:29 Wound Center Nurse 2 -Time 16:29 -Correct Patient Yes -Correct Side, Site, Position Yes -Correct Procedure Yes -Procedure Performed Yes -Type of Procedure Debridement -Clinical Debridement Muscle / Fascia -Tissue Removed Muscle -Post Debridement (cm) - Length 7 -Post Debridement (cm) - Width 4.5 -Post Debridement (cm) - Depth 1.0 -Total Square (Post) (cm) 31.5 -Area of Debridement (cm) - Length 7 -Area of Debridement (cm) - Width 4.5 -Total Square (Area) (cm) 31.5 -Tunneling No -Undermining/Tunneling No -Circular Undermining No -Wound/Ulcer Outcome Not Healed -Ulcer Cleansing Rinsed/ Irrigated with Saline -Foul Odor after Cleansing No -Bioengineered Tissue No -Bleeding Controlled with Pressure -Treatment Response Procedure Tolerated Well -Offloading No -Debridement - Muscle / Fascia, 1st Yes 20sq cm -Debridement, Muscle/Fascia, ea addt'l 1 20sq cm or part thereof Pain Scale: 0-10 Numeric Is Patient Pain Free? Yes - Nurse 3 - General Ulcer D/C NN Start: 11/03/24 15:57 Freq: Status: Active Protocol: Activity Type Activity Date Activity User E-sign Co-sign Detail Recorded Client Recorded Date Recorded By Document 11/03/24 16:27 JOHN [id number] 11/03/24 16:27 11/03/24 16:27 Wound Care Center Nurse 3 #1 Sacral -Negative Pressure Wound Therapy Continue -Setting (mmHg) 125 -Negative Pressure is Continuous -NPWT Application Charge NPWT & Debridement (nc ) Pain Scale: 0-10 Numeric Is Patient Pain Free? Yes - Visit Discharge Discharge Condition Stable Ambulatory Status Wheelchair Medication Reconcilliation completed & No provided to patient/care provider Clinical Summary of Care Provided Yes Assessment/Plan Assessment/Plan (1) Decubitus ulcer of sacral region, stage 4: CODE(S): L89.154 - Pressure ulcer of sacral region, stage 4 PLAN: Continue TIW Vac changes and weekly f/u in the wound care center, Continue Nystatin powder as needed and continue VAC Continue pressure offloading. F/u in 2 weeks, needs to get her labs (need albumin and prealbumin). Discussed nicotine/VAPE cessation. May be ready for skin grafting soon. Would benefit from smoking cessation.
--- NOTE | 2024-11-04 09:53 | WC ---
PHOTO 11/03/24 [facility]
== END 2024-11-21 23:59 | disposition home or self-care (01) ==
LOC: WC 15:02
PROVIDERS: PCP Family Medicine; Referring Provider Surgery Plastic and Reconstructive Surgery; Visit Provider Surgery Plastic and Reconstructive Surgery
DX: L89.154 Pressure ulcer of sacral region, stage 4 (principal); G82.20 Paraplegia, unspecified; N31.9 Neuromuscular dysfunction of bladder, unspecified; I95.89 Other hypotension; F41.9 Anxiety disorder, unspecified; F17.290 Nicotine dependence, other tobacco product, uncomplicated; Z79.899 Other long term (current) drug therapy
CPT/HCPCS: 11043; 11046

== ENCOUNTER 2024-12-15 15:15 | Outpatient (RCR) | payer MEDICAID, SELFPAY ==
[2024-11-22 01:44] VITALS: BP 97/55; PULSE 95; RESP 16; TEMP 36.3; BMI 19.5
[2024-11-24 15:12] VITALS: BP 121/79; PULSE 74; RESP 18; TEMP 36.1; BMI 19.5
--- NOTE | 2024-11-25 07:30 | PCM.WC.PN ---
History of Present Illness Date of Service: 11/24/24 Chief Complaint: Sacral ulcer History of Wound: ROGELIO MARRERO is a delightful 44-year-old female with past medical history of depression, anxiety, intravenous drug use and polysubstance abuse resulting in hepatitis C, history of VTE, chronic paraplegia secondary to a spinal abscess at the level of C4-C5 (some ability to move extremities/lift her hips, but limited otherwise), neurogenic bladder with suprapubic catheters, chronic hypotension, tobacco use (continues to smoke), and a stage IV sacral decubitus ulcer. Patient reports that in the 5 years of her paraplegia, she has never had a sacral ulcer but developed 1 this summer when she was using a roller on her lower back for massage. She does not have a pressure offloading bed at home and lives with a roommate. Surgery by Dr. Barton on 08/14/24 - Excision of necrotic sacral ulcer down to bone, 9 x7 cm and Biopsy of the sacral bone and Placement of non-disposable irrigating wound VAC. Pathology of the bone showed acute and chronic osteomyelitis. Operative cultures negative. Acid Fast Bacilli cx and fungal cx still pending. Wound culture from 08/09/24 positive for MRSA and Enterococcus faecalis. Dr. Ferrell, ID, managing antibiotics. She is on home IV Vancomycin and Ertapenem for 6 weeks. Stop date 09/25/24. Wound care is the wound VAC. Subjective Subjective 29 Sep 2024: Here for follow-up 6 week postop. Doing well overall. Reports excellent dressing changes at home with the wound VAC. She has been getting excellent home health team care. Reports that she has been pressure offloading on a pressure offloading bed and has been improving her diet. Patient met with nutrition worker today upon my request. Reports that this helped. She is still smoking. Has Rx for Chantix but hasn't started. She's also vaping 13 Oct 2024: Still smoking. Reports excellent VAC changes. 04 Nov 2024: Still smoking. Reports excellent VAC changes. Current Encounter, 25 Nov 2024: Reports good VAC changes. Has not yet started the Chantix. Objective Data Objective Data Vital Signs: Vital Signs Temp Pulse Resp BP 96.9 F L 74 18 121/79 H 11/24/24 15:12 11/24/24 15:12 11/24/24 15:12 11/24/24 15:12 Weight: 147 lb 11.355 oz Body Mass Index (BMI) 19.5 Charges/Coding Procedures Integumentary 111xxx-113xx: 70050 Zakia musc/fascia 20 sq cm/< Add On Codes: 07426 Zakia musc/fascia add-on Physical Exam Narrative Sacral ulcer a nice beefy pink. No fluid collections. There was some fibrinous exudate which was removed today. wound measures 5 x 6 cm today. No exposed bone (1 cm deep), just fascia. Skin irritation continues to improve improved . Better overall granulation. Const alert and oriented x3 General Appearance: cooperative HEENT normocephalic Head and Scalp: atraumatic Eyes General Eye: normal appearance of both eyes Neck full ROM Lymph Lymphatic: Negative for no lymphedema noted Resp normal respiratory effort, normal air movement and clear to auscultation bilaterally Effort and Inspection: able to speak in complete sentences Cardio regular rate and regular rhythm Extremity normal to inspection and normal capillary refill Skin Wound Narrative: see above Neuro oriented x3 and CN's II-XII intact bilaterally Psych mental status grossly normal and cooperative Debridement Note Debridement Note Wound debrided: Sacral wound Laterality: Not Applicable Wound Grade/Stage: 3 Type of Debridement: Excisional debridement Anesthesia Used: 4% Lidocaine Solution Depth: Down to and including healthy tissue and to muscle (To fascia) Percentage of wound debrided: 100 Instrument Used: 7mm curette Severity: Necrosis of Muscle (The fascia) Amount of bleeding with debridement: Mild Bleeding Controlled with: Compression and gauze Patient tolerated procedure: Patient tolerated procedure well Post-Debridement Measurements and Additional Note: Post-Debridement Measurements/Treatment - Nurse 1 - General Ulcer Assessment Start: 11/24/24 15:12 Freq: Status: Active Protocol: VIKTOR.LOWPRAKASHT Activity Type Activity Date Activity User E-sign Co-sign Detail Recorded Client Recorded Date Recorded By Document 11/24/24 15:12 DL [id number] 11/24/24 15:19 DL 11/24/24 15:12 - Today's Visit Information Type of service Follow-up Visit (Physician/SOFTWARE DEVELOPMENT PROJECT MANAGER ) Arrival Mode Wheelchair Transfer Assistance None Patient Identification Verified (Name & Yes ) Patient Requires Transmission-Based No Precautions Height and Weight Body Mass Index (BMI) 19.5 BMI Classification Normal Vital Signs Temperature (97.8 F-99.1 F) 96.9 F L Temperature Source Temporal Pulse Rate (60-100) 74 Pulse Location Monitor Respiratory Rate (12-18) 18 Respiratory rate source Observation Blood Pressure (90/60-120/80) 121/79 H Blood Pressure Mean (mm Hg) 93 Source Monitor History Since Last Visit- (Skip if this is Patient's initial visit) Have you changed medications since your No last visit? Any new allergies or adverse reactions No Had a fall/change in ADL's that may No increase risk of falls Signs or symptoms of abuse and/or No neglect since last visit Have you been in the hospital since your No last visit? Has dressing in place as prescribed Yes Has compression in place as prescribed N/A Has offloadiing in place as prescribed Yes Experienced any changes in pain level or No management Pain Scale: 0-10 Numeric Is Patient Pain Free? Yes WC - Nurse 1 - General Ulcer Measurement Start: 11/24/24 15:12 Freq: Status: Active Protocol: Activity Type Activity Date Activity User E-sign Co-sign Detail Recorded Client Recorded Date Recorded By Document 11/24/24 15:12 DL [id number] 11/24/24 15:19 DL 11/24/24 15:12 Wound Center Nurse 1 #1 Sacral -Current Size (cm) - Length 6.1 -Current Size (cm) - Width 4 -Current Size (cm) - Depth 1 -Total Square Cm 24.4 -Undermining/Tunneling Starts (O'clock 6 ) -Undermining/Tunneling Ends (O'clock) 12 -Maximum Distance (cm) 1.5 -Classification - Thickness Full Thickness without Exposed Support Structure -Exudate Amt Medium -Exudate Type Serosanguineous -Wound Margin Thickened & Rolled Under -Granulation Amt Medium (34-66%) -Granulation Quality [place] -Necrosis Amt Medium (34-66%) -Necrotic Tissue Type Adherent Slough -Structure Exposed N/A -Texture (Prisca-wound Skin Appearance) Scarring -Moisture (Prisca-wound Skin Appearance) No Abnormality -Color (Prisca-wound Skin Appearance) No Abnormality -Temperature (Prisca-wound Skin No Abnormality Appearance) (Pt Warm) -Tenderness on Palpation (Prisca-wound No Skin Appearance) -Ulcer Cleansing Soap and Water -Foul Odor after Cleansing No -Anesthetic Used 4% Lidocaine Solution WC - Nurse 2 - General Ulcer CM Notes Start: 11/24/24 15:12 Freq: Status: Active Protocol: Activity Type Activity Date Activity User E-sign Co-sign Detail Recorded Client Recorded Date Recorded By Document 11/24/24 16:17 JEFFREY [id number] 11/24/24 16:21 JF 11/24/24 16:17 Wound Center Nurse 2 -Time 16:18 -Correct Patient Yes -Correct Side, Site, Position Yes -Correct Procedure Yes -Procedure Performed Yes -Type of Procedure Debridement -Clinical Debridement Muscle / Fascia -Tissue Removed Muscle,Fascia -Post Debridement (cm) - Length 6.0 -Post Debridement (cm) - Width 5 -Post Debridement (cm) - Depth 1.0 -Total Square (Post) (cm) 30.0 -Area of Debridement (cm) - Length 6.0 -Area of Debridement (cm) - Width 5 -Total Square (Area) (cm) 30.0 -Tunneling No -Undermining/Tunneling No -Circular Undermining No -Wound/Ulcer Outcome Not Healed -Ulcer Cleansing Rinsed/ Irrigated with Saline -Foul Odor after Cleansing No -Bioengineered Tissue No -Bleeding Controlled with Pressure -Treatment Response Procedure Tolerated Well -Offloading No -Debridement - Muscle / Fascia, 1st Yes 20sq cm -Debridement, Muscle/Fascia, ea addt'l 1 20sq cm or part thereof Pain Scale: 0-10 Numeric Is Patient Pain Free? Yes - Nurse 3 - General Ulcer D/C NN Start: 11/24/24 15:12 Freq: Status: Active Protocol: Activity Type Activity Date Activity User E-sign Co-sign Detail Recorded Client Recorded Date Recorded By Document 11/24/24 16:26 [id number] 11/24/24 16:27 11/24/24 16:26 Wound Care Center Nurse 3 #1 Sacral -Negative Pressure Wound Therapy Continue -Setting (mmHg) 125 -Negative Pressure is Continuous -NPWT Application Charge NPWT & Debridement (nc ) Pain Scale: 0-10 Numeric Is Patient Pain Free? Yes - Visit Discharge Discharge Condition Stable Ambulatory Status Wheelchair Transportation Private Auto Medication Reconcilliation completed & No provided to patient/care provider Clinical Summary of Care Provided Yes Assessment/Plan Assessment/Plan (1) Decubitus ulcer of sacral region, stage 4: CODE(S): L89.154 - Pressure ulcer of sacral region, stage 4 PLAN: Continue TIW Vac changes and weekly f/u in the wound care center, Continue Nystatin powder as needed and continue VAC Continue pressure offloading. F/u in 2 weeks, with nutrition labs including CMP , CBC with differential , albumin and prealbumin. Discussed nicotine/VAPE cessation. She will need to quit smoking and quit the vape pen before we can do a reconstruction. Wound is doing quite well with the VAC change
[2024-12-15 15:03] VITALS: RESP 18; BMI 19.5
[2024-12-15 16:10] VITALS: BP 88/59; RESP 16
--- NOTE | 2024-12-16 06:06 | PCM.WC.PN ---
History of Present Illness Date of Service: 12/15/24 Chief Complaint: Sacral ulcer History of Wound: ROGELIO MARRERO is a delightful 44-year-old female with past medical history of depression, anxiety, intravenous drug use and polysubstance abuse resulting in hepatitis C, history of VTE, chronic paraplegia secondary to a spinal abscess at the level of C4-C5 (some ability to move extremities/lift her hips, but limited otherwise), neurogenic bladder with suprapubic catheters, chronic hypotension, tobacco use (continues to smoke), and a stage IV sacral decubitus ulcer. Patient reports that in the 5 years of her paraplegia, she has never had a sacral ulcer but developed 1 this summer when she was using a roller on her lower back for massage. She does not have a pressure offloading bed at home and lives with a roommate. Surgery by Dr. Barton on 08/14/24 - Excision of necrotic sacral ulcer down to bone, 9 x7 cm and Biopsy of the sacral bone and Placement of non-disposable irrigating wound VAC. Pathology of the bone showed acute and chronic osteomyelitis. Operative cultures negative. Acid Fast Bacilli cx and fungal cx still pending. Wound culture from 08/09/24 positive for MRSA and Enterococcus faecalis. Dr. Ferrell, ID, managing antibiotics. She is on home IV Vancomycin and Ertapenem for 6 weeks. Stop date 09/25/24. Wound care is the wound VAC. Subjective Subjective 29 Sep 2024: Here for follow-up 6 week postop. Doing well overall. Reports excellent dressing changes at home with the wound VAC. She has been getting excellent home health team care. Reports that she has been pressure offloading on a pressure offloading bed and has been improving her diet. Patient met with nutritional services director today upon my request. Reports that this helped. She is still smoking. Has Rx for Chantix but hasn't started. She's also vaping 13 Oct 2024: Still smoking. Reports excellent VAC changes. 04 Nov 2024: Still smoking. Reports excellent VAC changes. 25 Nov 2024: Reports good VAC changes. Has not yet started the Chantix. Current Encounter, 16 Dec 2024: Doing well overall but still using tobacco products. Reports good VAC changes but that there has been issue with the seal from time to time and would like to switch dressings. Objective Data Objective Data Vital Signs: Vital Signs Temp Pulse Resp BP O2 Del Method 96.9 F L 74 16 88/59 L Room Air 11/24/24 15:12 11/24/24 15:12 12/15/24 16:10 12/15/24 16:10 12/15/24 16:10 Oxygen Delivery Method Room Air Weight: 147 lb 11.355 oz Body Mass Index (BMI) 19.5 Charges/Coding Procedures Integumentary 111xxx-113xx: 86385 Zakia musc/fascia 20 sq cm/< Add On Codes: 35556 Zakia musc/fascia add-on Physical Exam Narrative Sacral ulcer a nice beefy pink. No fluid collections. There was some fibrinous exudate and some necrotic tissue at the base at was removed today. Wound measures 5 x 5 cm today. No exposed bone (1 cm deep), just fascia. Skin irritation continues to improve improved . Better overall granulation. There are some spotty excoriations on her legs and her thighs Const alert and oriented x3 General Appearance: cooperative HEENT normocephalic Head and Scalp: atraumatic Eyes General Eye: normal appearance of both eyes Neck full ROM Lymph Lymphatic: Negative for no lymphedema noted Resp normal respiratory effort, normal air movement and clear to auscultation bilaterally Effort and Inspection: able to speak in complete sentences Cardio regular rate and regular rhythm Extremity normal to inspection and normal capillary refill Skin Wound Narrative: see above Neuro oriented x3 and CN's II-XII intact bilaterally Psych mental status grossly normal and cooperative Debridement Note Debridement Note Wound debrided: Sacral wound Laterality: Not Applicable Wound Grade/Stage: 3 Type of Debridement: Excisional debridement Anesthesia Used: 4% Lidocaine Solution Depth: Down to and including healthy tissue and to muscle Percentage of wound debrided: 100 Instrument Used: 7mm curette Severity: Necrosis of Muscle Amount of bleeding with debridement: Moderate Bleeding Controlled with: Compression and gauze Patient tolerated procedure: Patient tolerated procedure well Post-Debridement Measurements and Additional Note: Post-Debridement Measurements/Treatment WC - Nurse 1 - General Ulcer Assessment Start: 11/24/24 15:12 Freq: Status: Active Protocol: LOWISAIAS Activity Type Activity Date Activity User E-sign Co-sign Detail Recorded Client Recorded Date Recorded By Document 11/24/24 15:12 DL [id number] 11/24/24 15:19 DL Document 12/15/24 15:03 KW [id number] 12/15/24 15:05 KW 11/24/24 12/15/24 15:12 15:03 WC - Today's Visit Information Type of service Follow-up Visit Initial Visit (Physician/CATTLE BRANDER ) Arrival Mode Wheelchair Wheelchair Transfer Assistance None Accompanied by primary care pediatrician Patient Identification Verified (Name & Yes Yes ) Patient Requires Transmission-Based No Precautions Height and Weight Body Mass Index (BMI) 19.5 19.5 BMI Classification Normal Normal Vital Signs Temperature (97.8 F-99.1 F) 96.9 F L Temperature Source Temporal Pulse Rate (60-100) 74 Pulse Location Monitor Respiratory Rate (12-18) 18 18 Respiratory rate source Observation Monitor Oxygen Delivery Method Room Air Blood Pressure (90/60-120/80) 121/79 H Blood Pressure Mean (mm Hg) 93 Source Monitor History Since Last Visit- (Skip if this is Patient's initial visit) Have you changed medications since your No No last visit? Any new allergies or adverse reactions No No Had a fall/change in ADL's that may No No increase risk of falls Signs or symptoms of abuse and/or No No neglect since last visit Have you been in the hospital since your No No last visit? Has dressing in place as prescribed Yes No Has compression in place as prescribed N/A N/A Has offloadiing in place as prescribed Yes N/A Experienced any changes in pain level or No No management Left Footwear No Footwear Right Footwear No Footwear Pain Scale: 0-10 Numeric Is Patient Pain Free? Yes Yes WC - Nurse 1 - General Ulcer Measurement Start: 11/24/24 15:12 Freq: Status: Active Protocol: Activity Type Activity Date Activity User E-sign Co-sign Detail Recorded Client Recorded Date Recorded By Document 11/24/24 15:12 DL [id number] 11/24/24 15:19 DL Document 12/15/24 15:03 KW [id number] 12/15/24 15:05 KW 11/24/24 12/15/24 15:12 15:03 Wound Center Nurse 1 #1 Sacral -Current Size (cm) - Length 6.1 5.4 -Current Size (cm) - Width 4 5 -Current Size (cm) - Depth 1 0.6 -Total Square Cm 24.4 27.0 -Date of Last Picture (Recall this 12/15/24 field) -Undermining/Tunneling Starts (O'clock 6 ) -Undermining/Tunneling Ends (O'clock) 12 -Maximum Distance (cm) 1.5 -Circular Undermining Yes -Classification - Thickness Full Thickness without Exposed Support Structure -Exudate Amt Medium Medium -Exudate Type Serosanguineous Serosanguineous -Wound Margin Thickened & Thickened & Rolled Under Rolled Under -Granulation Amt Medium (34-66%) Large (67-100%) -Granulation Quality [place] -Necrosis Amt Medium (34-66%) -Necrotic Tissue Type Adherent Slough -Structure Exposed N/A -Texture (Prisca-wound Skin Appearance) Scarring Assessed,Callus -Moisture (Prisca-wound Skin Appearance) No Abnormality Assessed -Color (Prisca-wound Skin Appearance) No Abnormality Assessed -Temperature (Prisca-wound Skin No Abnormality No Abnormality Appearance) (Pt Warm) (Pt Warm) -Tenderness on Palpation (Prisca-wound No No Skin Appearance) -Ulcer Cleansing Soap and Water Soap and Water -Foul Odor after Cleansing No No -Anesthetic Used 4% Lidocaine 4% Lidocaine Solution Solution WC - Nurse 2 - General Ulcer CM Notes Start: 11/24/24 15:12 Freq: Status: Active Protocol: Activity Type Activity Date Activity User E-sign Co-sign Detail Recorded Client Recorded Date Recorded By Document 11/24/24 16:17 [id number] 11/24/24 16:21 Document 12/15/24 15:50 [id number] 12/15/24 15:51 11/24/24 12/15/24 16:17 15:50 Wound Center Nurse 2 #1 Sacral -Time 16:18 15:50 -Correct Patient Yes Yes -Correct Side, Site, Position Yes Yes -Correct Procedure Yes Yes -Procedure Performed Yes Yes -Type of Procedure Debridement Debridement -Clinical Debridement Muscle / Fascia Muscle / Fascia -Tissue Removed Muscle,Fascia Muscle,Fascia -Post Debridement (cm) - Length 6.0 5 -Post Debridement (cm) - Width 5 5 -Post Debridement (cm) - Depth 1.0 1 -Total Square (Post) (cm) 30.0 25 -Area of Debridement (cm) - Length 6.0 5 -Area of Debridement (cm) - Width 5 5 -Total Square (Area) (cm) 30.0 25 -Tunneling No No -Undermining/Tunneling No No -Circular Undermining No No -Wound/Ulcer Outcome Not Healed Not Healed -Ulcer Cleansing Rinsed/ Rinsed/ Irrigated with Irrigated with Saline Saline -Foul Odor after Cleansing No No -Bioengineered Tissue No No -Bleeding Controlled with Pressure Pressure -Treatment Response Procedure Procedure Tolerated Well Tolerated Well -Offloading No No -Pressure Reduction Wheelchair cushion -Debridement - Muscle / Fascia, 1st Yes Yes 20sq cm -Debridement, Muscle/Fascia, ea addt'l 1 1 20sq cm or part thereof Pain Scale: 0-10 Numeric Is Patient Pain Free? Yes Yes - Nurse 3 - General Ulcer D/C NN Start: 11/24/24 15:12 Freq: Status: Active Protocol: Activity Type Activity Date Activity User E-sign Co-sign Detail Recorded Client Recorded Date Recorded By Document 11/24/24 16:26 [employer] [id number] 11/24/24 16:27 [employer] Document 12/15/24 16:10 [facility] [id number] 12/15/24 16:11 [facility] 11/24/24 12/15/24 16:26 16:10 Wound Care Center Nurse 3 #1 Sacral -Negative Pressure Wound Therapy Continue -Setting (mmHg) 125 -Negative Pressure is Continuous -NPWT Application Charge NPWT & Debridement (nc ) Vital Signs Respiratory Rate (12-18) 16 Respiratory rate source Observation Oxygen Delivery Method Room Air Blood Pressure (90/60-120/80) 88/59 L Blood Pressure Mean (mm Hg) 68 Source Monitor Position Sitting Blood Pressure Location Right Arm Pain Scale: 0-10 Numeric Is Patient Pain Free? Yes Yes - Visit Discharge Discharge Condition Stable Stable Ambulatory Status Wheelchair Wheelchair Transportation Private Auto Private Auto Accompanied by caregiver Medication Reconcilliation completed & No provided to patient/care provider Clinical Summary of Care Provided Yes Facility Type Home Health #1 Sacral -Ulcer Cleansing Rinsed/ Irrigated with Saline -Foul Odor after Cleansing No -Primary Dressing Applied Hysept -Other Dressing abd -Primary Dressing Covered/Secured with Secured with Tape -Hysept 1 Treatment Response Procedure Tolerated Well Assessment/Plan Assessment/Plan (1) Decubitus ulcer of sacral region, stage 4: CODE(S): L89.154 - Pressure ulcer of sacral region, stage 4 PLAN: Discontinue Vac changes Plan to switch to Dakin's wet to dry twice daily for now. Continue pressure offloading. F/u in 3 weeks, with nutrition labs including CMP , CBC with differential , albumin and prealbumin. Discussed nicotine/VAPE cessation. She will need to quit smoking and quit the vape pen before we can do a reconstruction. Wound continues to get smaller and she is making progress
--- NOTE | 2024-12-16 10:41 | WC ---
PHOTO 12/15/24 [facility]
== END 2024-12-19 23:59 | disposition home or self-care (01) ==
LOC: WC 15:15
PROVIDERS: PCP Family Medicine; Referring Provider Surgery Plastic and Reconstructive Surgery; Visit Provider Surgery Plastic and Reconstructive Surgery
DX: L89.154 Pressure ulcer of sacral region, stage 4 (principal); G82.20 Paraplegia, unspecified; I95.89 Other hypotension; N31.9 Neuromuscular dysfunction of bladder, unspecified; F32.A Depression, unspecified; F41.9 Anxiety disorder, unspecified; F17.290 Nicotine dependence, other tobacco product, uncomplicated; Z79.899 Other long term (current) drug therapy; Z86.718 Personal history of other venous thrombosis and embolism
CPT/HCPCS: 11043; 11046

== ENCOUNTER 2025-01-12 15:00 | Outpatient (RCR) | payer MEDICAID, SELFPAY ==
[2024-12-20 02:09] VITALS: BP 88/59; PULSE 74; RESP 16; TEMP 36.1; BMI 19.5
[2025-01-12 15:00] VITALS: BP 101/78; PULSE 122; RESP 16; TEMP 36.3; BMI 19.5
--- NOTE | 2025-01-13 07:50 | PCM.WC.PN ---
History of Present Illness Date of Service: 01/12/25 Chief Complaint: Sacral ulcer History of Wound: ROGELIO MARRERO is a delightful 44-year-old female with past medical history of depression, anxiety, intravenous drug use and polysubstance abuse resulting in hepatitis C, history of VTE, chronic paraplegia secondary to a spinal abscess at the level of C4-C5 (some ability to move extremities/lift her hips, but limited otherwise), neurogenic bladder with suprapubic catheters, chronic hypotension, tobacco use (continues to smoke), and a stage IV sacral decubitus ulcer. Patient reports that in the 5 years of her paraplegia, she has never had a sacral ulcer but developed 1 this summer when she was using a roller on her lower back for massage. She does not have a pressure offloading bed at home and lives with a roommate. Surgery by Dr. Barton on 08/14/24 - Excision of necrotic sacral ulcer down to bone, 9 x7 cm and Biopsy of the sacral bone and Placement of non-disposable irrigating wound VAC. Pathology of the bone showed acute and chronic osteomyelitis. Operative cultures negative. Acid Fast Bacilli cx and fungal cx still pending. Wound culture from 08/09/24 positive for MRSA and Enterococcus faecalis. Dr. Ferrell, ID, managing antibiotics. She is on home IV Vancomycin and Ertapenem for 6 weeks. Stop date 09/25/24. Wound care is the wound VAC. Subjective Subjective 29 Sep 2024: Here for follow-up 6 week postop. Doing well overall. Reports excellent dressing changes at home with the wound VAC. She has been getting excellent home health team care. Reports that she has been pressure offloading on a pressure offloading bed and has been improving her diet. Patient met with food and nutrition professor today upon my request. Reports that this helped. She is still smoking. Has Rx for Chantix but hasn't started. She's also vaping 13 Oct 2024: Still smoking. Reports excellent VAC changes. 04 Nov 2024: Still smoking. Reports excellent VAC changes. 25 Nov 2024: Reports good VAC changes. Has not yet started the Chantix. 15 Dec 2024: Doing well overall but still using tobacco products. Reports good VAC changes but that there has been issue with the seal from time to time and would like to switch dressings. Current Encounter, 12 January 2025: Patient reports good dressing changes. No issues. Periwound has become bus cleaner since discontinuing the tape from the VAC. She has been attempting to pressure offload. She has Chantix at home but has not started it and continues to smoke. Objective Data Objective Data Vital Signs: Vital Signs Temp Pulse Resp BP O2 Del Method 97.4 F L 122 H 16 101/78 Room Air 01/12/25 15:00 01/12/25 15:00 01/12/25 15:00 01/12/25 15:00 01/12/25 15:00 Oxygen Delivery Method Room Air Weight: 147 lb 11.355 oz Body Mass Index (BMI) 19.5 Charges/Coding Procedures Integumentary 111xxx-113xx: 45457 Zakia musc/fascia 20 sq cm/< Add On Codes: 10556 Zakia musc/fascia add-on Physical Exam Narrative Sacral ulcer a nice beefy pink. No fluid collections. There was some fibrinous exudate and some necrotic tissue at the base at was removed today. Wound measures 4.5 x 5.5 cm today. No exposed bone (0.5 cm deep), just fascia. Skin irritation is improving. Better overall granulation. There are some spotty excoriations on her legs and her thighs Const alert and oriented x3 General Appearance: cooperative HEENT normocephalic Head and Scalp: atraumatic Eyes General Eye: normal appearance of both eyes Neck full ROM Lymph Lymphatic: Negative for no lymphedema noted Resp normal respiratory effort, normal air movement and clear to auscultation bilaterally Effort and Inspection: able to speak in complete sentences Cardio regular rate and regular rhythm Extremity normal to inspection and normal capillary refill Skin Wound Narrative: see above Neuro oriented x3 and CN's II-XII intact bilaterally Psych mental status grossly normal and cooperative Debridement Note Debridement Note Wound debrided: Sacral wound Laterality: Not Applicable Wound Grade/Stage: Stage III Type of Debridement: Excisional debridement Anesthesia Used: 4% Lidocaine Solution Depth: to muscle (With exposed fascia) Percentage of wound debrided: 100 Instrument Used: 7mm curette, Forceps and - (Scissors for sharp excision) Tissue Removed: Hypertrophic granulation tissue and exposed necrotic fascial debris Severity: Necrosis of Muscle Amount of bleeding with debridement: Moderate Bleeding Controlled with: Compression and gauze Patient tolerated procedure: Patient tolerated procedure well Post-Debridement Measurements and Additional Note: Post-Debridement Measurements/Treatment WC - Nurse 1 - General Ulcer Assessment Start: 01/12/25 15:00 Freq: Status: Active Protocol: NICOLAS Activity Type Activity Date Activity User E-sign Co-sign Detail Recorded Client Recorded Date Recorded By Document 01/12/25 15:00 [facility] [id number] 01/12/25 15:06 [facility] 01/12/25 15:00 WC - Today's Visit Information Type of service Follow-up Visit (Physician/ENGINEERING ASSISTANT ) Arrival Mode Wheelchair Transfer Assistance Other Transfer Assist (Other) CAREGIVER LIFTS INTO BED Patient Identification Verified (Name & Yes ) Patient Requires Transmission-Based No Precautions Height and Weight Body Mass Index (BMI) 19.5 BMI Classification Normal Vital Signs Temperature (97.8 F-99.1 F) 97.4 F L Temperature Source Temporal Pulse Rate (60-100) 122 H Pulse Location Monitor Respiratory Rate (12-18) 16 Respiratory rate source Observation Oxygen Delivery Method Room Air Blood Pressure (90/60-120/80) 101/78 Blood Pressure Mean (mm Hg) 85 Source Monitor Position Supine Blood Pressure Location Left Arm History Since Last Visit- (Skip if this is Patient's initial visit) Have you changed medications since your No last visit? Any new allergies or adverse reactions No Had a fall/change in ADL's that may No increase risk of falls Signs or symptoms of abuse and/or No neglect since last visit Have you been in the hospital since your No last visit? Has dressing in place as prescribed Yes Has compression in place as prescribed N/A Has offloadiing in place as prescribed N/A Experienced any changes in pain level or No management Other Footwear BAREFEET Pain Scale: 0-10 Numeric Is Patient Pain Free? Yes - Nurse 1 - General Ulcer Measurement Start: 01/12/25 15:00 Freq: Status: Active Protocol: Activity Type Activity Date Activity User E-sign Co-sign Detail Recorded Client Recorded Date Recorded By Document 01/12/25 15:00 [facility] [id number] 01/12/25 15:06 [facility] 01/12/25 15:00 Wound Center Nurse 1 #1 Sacral -Combined with other wound No -Current Size (cm) - Length 5.5 -Current Size (cm) - Width 4.6 -Current Size (cm) - Depth 0.6 -Total Square Cm 25.30 -Date of Last Picture (Recall this 01/12/25 field) -Photo Taken Yes -Epithelialization Small 1-33% -Tunneling No -Undermining/Tunneling Yes -Undermining/Tunneling Starts (O'clock 6 ) -Undermining/Tunneling Ends (O'clock) 11 -Maximum Distance (cm) 1.1 -Exudate Amt Large -Exudate Type Serosanguineous -Wound Margin Thickened & Rolled Under -Granulation Amt Large (67-100%) -Granulation Quality Hyper- granulation,Red -Slough/Fibrin Yes -Necrosis Amt Small (1-33%) -Necrotic Tissue Type Adherent Slough -Texture (Prisca-wound Skin Appearance) Assessed, Localized Edema ,Rash -Moisture (Prisca-wound Skin Appearance) Assessed -Color (Prisca-wound Skin Appearance) Assessed, Erythema -Temperature (Prisca-wound Skin No Abnormality Appearance) (Pt Warm) -Tenderness on Palpation (Prisca-wound No Skin Appearance) -Ulcer Cleansing Soap and Water -Foul Odor after Cleansing No -Anesthetic Used 4% Lidocaine Solution WC - Nurse 2 - General Ulcer CM Notes Start: 01/12/25 15:00 Freq: Status: Active Protocol: Activity Type Activity Date Activity User E-sign Co-sign Detail Recorded Client Recorded Date Recorded By Document 01/12/25 15:17 JE[facility] [id number] 01/12/25 15:21 JEFFREY 01/12/25 15:17 Wound Center Nurse 2 -Time 15:18 -Correct Patient Yes -Correct Side, Site, Position Yes -Correct Procedure Yes -Procedure Performed Yes -Type of Procedure Debridement -Clinical Debridement Muscle / Fascia -Tissue Removed Muscle,Fascia -Post Debridement (cm) - Length 4.5 -Post Debridement (cm) - Width 5.5 -Post Debridement (cm) - Depth 0.5 -Total Square (Post) (cm) 24.75 -Area of Debridement (cm) - Length 4.5 -Area of Debridement (cm) - Width 5.5 -Total Square (Area) (cm) 24.75 -Tunneling No -Undermining/Tunneling No -Circular Undermining No -Wound/Ulcer Outcome Not Healed -Ulcer Cleansing Rinsed/ Irrigated with Saline -Foul Odor after Cleansing No -Bioengineered Tissue No -Bleeding Controlled with Pressure -Treatment Response Procedure Tolerated Well -Offloading No -Pressure Reduction Wheelchair cushion -Debridement - Muscle / Fascia, 1st Yes 20sq cm -Debridement, Muscle/Fascia, ea addt'l 1 20sq cm or part thereof Pain Scale: 0-10 Numeric Is Patient Pain Free? Yes WC - Nurse 3 - General Ulcer D/C NN Start: 01/12/25 15:00 Freq: Status: Active Protocol: Activity Type Activity Date Activity User E-sign Co-sign Detail Recorded Client Recorded Date Recorded By Document 01/12/25 15:26 [facility] [id number] 01/12/25 15:28 [facility] 01/12/25 15:26 Wound Care Center Nurse 3 #1 Sacral -Ulcer Cleansing Rinsed/ Irrigated with Saline -Foul Odor after Cleansing No -Primary Dressing Applied Hysept -Other Dressing ABD -Primary Dressing Covered/Secured with Secured with Tape -Other Covering DRSG PER KW SUPERCALENDER OPERATOR -Hysept 1 Treatment Response Procedure Tolerated Well Pain Scale: 0-10 Numeric Is Patient Pain Free? Yes WC - Visit Discharge Discharge Condition Stable Ambulatory Status Wheelchair Accompanied by CAREGIVER Facility [facility] Assessment/Plan Assessment/Plan (1) Decubitus ulcer of sacral region, stage 4: CODE(S): L89.154 - Pressure ulcer of sacral region, stage 4 PLAN: Continue Dakin's wet-to-dry twice daily Continue pressure offloading. F/u in 3 weeks, with nutrition labs including CMP , CBC with differential , albumin and prealbumin (have not yet been obtained and discussed obtaining with the patient and her caregiver). Discussed nicotine/VAPE cessation. She will need to quit smoking and quit the vape pen before she would be a reconstructive candidate. Otherwise we will continue wound VAC changes which seems to be a reasonable option as this is making progress. I offered her a referral for a second opinion for another provider who may be willing to do a reconstruction while she is smoking, but she deferred this option at this time. Wound continues to get smaller and she is making progress
--- NOTE | 2025-01-14 11:55 | WC ---
PHOTO 01/12/25 SACRAL
--- NOTE | 2025-01-14 11:58 | WC ---
PHOTO 01/12/25 SACRAL
== END 2025-01-19 23:59 | disposition home or self-care (01) ==
LOC: WC 15:00
PROVIDERS: PCP Family Medicine; Referring Provider Surgery Plastic and Reconstructive Surgery; Visit Provider Surgery Plastic and Reconstructive Surgery
DX: L89.153 Pressure ulcer of sacral region, stage 3 (principal); G82.20 Paraplegia, unspecified; N31.9 Neuromuscular dysfunction of bladder, unspecified; I95.89 Other hypotension; F32.A Depression, unspecified; F41.9 Anxiety disorder, unspecified; F17.290 Nicotine dependence, other tobacco product, uncomplicated; Z79.02 Long term (current) use of antithrombotics/antiplatelets; Z79.899 Other long term (current) drug therapy; Z86.19 Personal history of other infectious and parasitic diseases; Z87.39 Personal history of other diseases of the musculoskeletal system and connective tissue
CPT/HCPCS: 11043; 11046

== ENCOUNTER 2025-02-09 15:03 | Outpatient (RCR) | payer MEDICAID, SELFPAY ==
[2025-01-20 00:53] VITALS: BP 101/78; PULSE 122; RESP 16; TEMP 36.3; BMI 19.5
--- NOTE | 2025-02-04 15:04 | WC ---
PT MISSED PREV SCHEDULED APPT ON 02/02/25. CALLED IN TODAY REQUESTING NEW BOTTLE OF DAKIN'S. HAS RAN OUT. NURSE REFINED SYRUP OPERATOR UPDATED. PT CAN PICK ONE UP. WILL DOCUMENT IN A NURSE 3.
[2025-02-09 15:09] VITALS: BP 123/71; PULSE 98; RESP 16; TEMP 36.9; BMI 19.5
--- NOTE | 2025-02-10 10:21 | WC ---
PHOTO 02/09/25 SACRUM
--- NOTE | 2025-02-10 10:57 | PCM.WC.PN ---
History of Present Illness Date of Service: 02/09/25 Chief Complaint: Sacral ulcer History of Wound: ROGELIO MARRERO is a delightful 44-year-old female with past medical history of depression, anxiety, intravenous drug use and polysubstance abuse resulting in hepatitis C, history of VTE, chronic paraplegia secondary to a spinal abscess at the level of C4-C5 (some ability to move extremities/lift her hips, but limited otherwise), neurogenic bladder with suprapubic catheters, chronic hypotension, tobacco use (continues to smoke), and a stage IV sacral decubitus ulcer. Patient reports that in the 5 years of her paraplegia, she has never had a sacral ulcer but developed 1 this summer when she was using a roller on her lower back for massage. She does not have a pressure offloading bed at home and lives with a roommate. Surgery by Dr. Barton on 08/14/24 - Excision of necrotic sacral ulcer down to bone, 9 x7 cm and Biopsy of the sacral bone and Placement of non-disposable irrigating wound VAC. Pathology of the bone showed acute and chronic osteomyelitis. Operative cultures negative. Acid Fast Bacilli cx and fungal cx still pending. Wound culture from 08/09/24 positive for MRSA and Enterococcus faecalis. Dr. Ferrell, ID, managing antibiotics. She is on home IV Vancomycin and Ertapenem for 6 weeks. Stop date 09/25/24. Wound care is the wound VAC. Subjective Subjective 29 Sep 2024: Here for follow-up 6 week postop. Doing well overall. Reports excellent dressing changes at home with the wound VAC. She has been getting excellent home health team care. Reports that she has been pressure offloading on a pressure offloading bed and has been improving her diet. Patient met with institutional nutrition consultant today upon my request. Reports that this helped. She is still smoking. Has Rx for Chantix but hasn't started. She's also vaping 13 Oct 2024: Still smoking. Reports excellent VAC changes. 04 Nov 2024: Still smoking. Reports excellent VAC changes. 25 Nov 2024: Reports good VAC changes. Has not yet started the Chantix. 15 Dec 2024: Doing well overall but still using tobacco products. Reports good VAC changes but that there has been issue with the seal from time to time and would like to switch dressings. 12 January 2025: Patient reports good dressing changes. No issues. Periwound has become wafer cleaner since discontinuing the tape from the VAC. She has been attempting to pressure offload. She has Chantix at home but has not started it and continues to smoke. Current Encounter, 09 February 2025: Doing well overall with dressing changes. She is still smoking, however, does not want to use Chantix. No fevers or chills. Has been eating a high-protein diet as instructed Objective Data Objective Data Vital Signs: Vital Signs Temp Pulse Resp BP O2 Del Method 98.5 F 98 16 123/71 H Room Air 02/09/25 15:09 02/09/25 15:09 02/09/25 15:09 02/09/25 15:09 02/09/25 15:09 Oxygen Delivery Method Room Air Weight: 147 lb 11.355 oz Body Mass Index (BMI) 19.5 Charges/Coding Procedures Integumentary 111xxx-113xx: 80957 Zakia musc/fascia 20 sq cm/< Add On Codes: 71181 Zakia musc/fascia add-on Physical Exam Narrative No fluid collections. There was some fibrinous exudate and some necrotic tissue at the base at was removed today. Wound measures 6 x 6 cm today. No exposed bone (0.5 cm deep), just fascia. Skin irritation continues to improve. Better overall granulation. She does have several excoriations of the skin of her thigh and gluteal region. Const alert and oriented x3 General Appearance: cooperative HEENT normocephalic Head and Scalp: atraumatic Eyes General Eye: normal appearance of both eyes Neck full ROM Lymph Lymphatic: Negative for no lymphedema noted Resp normal respiratory effort, normal air movement and clear to auscultation bilaterally Effort and Inspection: able to speak in complete sentences Cardio regular rate and regular rhythm Extremity normal to inspection and normal capillary refill Skin Wound Narrative: see above Neuro oriented x3 and CN's II-XII intact bilaterally Psych mental status grossly normal and cooperative Debridement Note Debridement Note Wound debrided: Sacral wound Laterality: Not Applicable Wound Grade/Stage: Stage III and is 6 x 6 cm and 0.5 cm deep Type of Debridement: Excisional debridement Anesthesia Used: 4% Lidocaine Solution and - (5 cc of 1% lidocaine with 1-200,000 epinephrine) Depth: to muscle (Down to fascial layer of the muscle and bone) Percentage of wound debrided: 100 Instrument Used: 7mm curette, Forceps and - (Scissors for some sharp excision) Tissue Removed: Necrotic debris/exudate at the level of the fascia Severity: Necrosis of Muscle (Necrosis to the overlying fascia of the muscle in the bone. Fascia was excised to clean the wound) Amount of bleeding with debridement: Moderate Bleeding Controlled with: Compression and gauze Patient tolerated procedure: Patient tolerated procedure well Post-Debridement Measurements and Additional Note: Post-Debridement Measurements/Treatment - Nurse 1 - General Ulcer Assessment Start: 02/04/25 15:05 Freq: Status: Active Protocol: Last SizeISAIAS Activity Type Activity Date Activity User E-sign Co-sign Detail Recorded Client Recorded Date Recorded By Document 02/09/25 15:09 [facility] [id number] 02/09/25 15:15 [facility] 02/09/25 15:09 WC - Today's Visit Information Type of service Follow-up Visit (Physician/HIDE DYER ) Arrival Mode Wheelchair Transfer Assistance Other Transfer Assist (Other) 1 Accompanied by caregiver comes with and transfers Patient Identification Verified (Name & Yes ) Patient Requires Transmission-Based No Precautions Height and Weight Body Mass Index (BMI) 19.5 BMI Classification Normal Vital Signs Temperature (97.8 F-99.1 F) 98.5 F Temperature Source Temporal Pulse Rate (60-100) 98 Pulse Location Monitor Respiratory Rate (12-18) 16 Respiratory rate source Observation Oxygen Delivery Method Room Air Blood Pressure (90/60-120/80) 123/71 H Blood Pressure Mean (mm Hg) 88 Source Monitor Position Sitting Blood Pressure Location Left Arm History Since Last Visit- (Skip if this is Patient's initial visit) Have you changed medications since your No last visit? Any new allergies or adverse reactions No Had a fall/change in ADL's that may No increase risk of falls Signs or symptoms of abuse and/or No neglect since last visit Have you been in the hospital since your No last visit? Has dressing in place as prescribed Yes Has compression in place as prescribed N/A Has offloadiing in place as prescribed N/A Experienced any changes in pain level or No management Left Footwear Other Footwear (Comment) Right Footwear Other Footwear (Comment) Other Footwear socks Pain Scale: 0-10 Numeric Is Patient Pain Free? Yes - Nurse 1 - General Ulcer Measurement Start: 02/04/25 15:05 Freq: Status: Active Protocol: Activity Type Activity Date Activity User E-sign Co-sign Detail Recorded Client Recorded Date Recorded By Document 02/09/25 15:09 [facility] [id number] 02/09/25 15:15 [facility] 02/09/25 15:09 Wound Center Nurse 1 #1 Sacral -Combined with other wound No -Current Size (cm) - Length 6 -Current Size (cm) - Width 5 -Current Size (cm) - Depth 1 -Total Square Cm 30 -Date of Last Picture (Recall this 02/09/25 field) -Photo Taken Yes -Tunneling No -Undermining/Tunneling Yes -Undermining/Tunneling Starts (O'clock 6 ) -Undermining/Tunneling Ends (O'clock) 12 -Maximum Distance (cm) 1.4 -Circular Undermining No -Exudate Amt Large -Exudate Type Serosanguineous -Wound Margin Thickened & Rolled Under -Granulation Amt Medium (34-66%) -Granulation Quality Pale,Red -Slough/Fibrin Yes -Necrosis Amt Medium (34-66%) -Necrotic Tissue Type Adherent Slough -Texture (Prisca-wound Skin Appearance) Assessed, Scarring -Moisture (Prisca-wound Skin Appearance) Assessed -Color (Prisca-wound Skin Appearance) Assessed -Temperature (Prisca-wound Skin No Abnormality Appearance) (Pt Warm) -Tenderness on Palpation (Prisca-wound No Skin Appearance) -Ulcer Cleansing Rinsed/ Irrigated with Saline -Foul Odor after Cleansing No -Anesthetic Used 5% Lidocaine Gel WC - Nurse 2 - General Ulcer CM Notes Start: 02/04/25 15:05 Freq: Status: Active Protocol: Activity Type Activity Date Activity User E-sign Co-sign Detail Recorded Client Recorded Date Recorded By Document 02/09/25 15:25 [id number] 02/09/25 15:27 02/09/25 15:25 Wound Center Nurse 2 -Time 15:25 -Correct Patient Yes -Correct Side, Site, Position Yes -Correct Procedure Yes -Procedure Performed Yes -Type of Procedure Debridement -Clinical Debridement Muscle / Fascia -Tissue Removed Fascia -Post Debridement (cm) - Length 6 -Post Debridement (cm) - Width 6 -Post Debridement (cm) - Depth 0.5 -Total Square (Post) (cm) 36 -Area of Debridement (cm) - Length 6 -Area of Debridement (cm) - Width 6 -Total Square (Area) (cm) 36 -Tunneling No -Undermining/Tunneling No -Circular Undermining No -Wound/Ulcer Outcome Not Healed -Ulcer Cleansing Rinsed/ Irrigated with Saline -Foul Odor after Cleansing No -Bioengineered Tissue No -Bleeding Controlled with Pressure -Treatment Response Procedure Tolerated Well -Offloading No -Pressure Reduction Wheelchair cushion -Debridement - Muscle / Fascia, 1st Yes 20sq cm -Debridement, Muscle/Fascia, ea addt'l 1 20sq cm or part thereof Pain Scale: 0-10 Numeric Is Patient Pain Free? Yes - Nurse 3 - General Ulcer D/C NN Start: 02/04/25 15:05 Freq: Status: Active Protocol: Activity Type Activity Date Activity User E-sign Co-sign Detail Recorded Client Recorded Date Recorded By Document 02/04/25 15:05 [facility] [id number] 02/04/25 15:06 [facility] Document 02/09/25 15:37 KW [id number] 02/09/25 15:37 KW 02/04/25 02/09/25 15:05 15:37 Wound Care Center Nurse 3 #1 Sacral -Ulcer Cleansing Rinsed/ Irrigated with Saline -Primary Dressing Applied Hysept Silicone Border Foam 6x6, Silvercel -Hysept 1 -Silicone Border Foam 6x6 1 -Silvercel 1 -Wound Comment(s) PT MISSED LAST APPT. RAN OUT OF DAKIN'S. COMING IN TODAY TO SALESPERSON FLOWERS A BOTTLE. NURSE SCREW MACHINE HAND UPDATED . Pain Scale: 0-10 Numeric Is Patient Pain Free? Yes Yes - Visit Discharge Discharge Condition Stable Ambulatory Status Wheelchair Transportation Private Auto Medication Reconcilliation completed & No provided to patient/care provider Clinical Summary of Care Provided Yes Assessment/Plan Assessment/Plan (1) Decubitus ulcer of sacral region, stage 4: CODE(S): L89.154 - Pressure ulcer of sacral region, stage 4 PLAN: Continue Dakin's wet-to-dry twice daily Continue pressure offloading. F/u in 3 weeks. Today we ordered labs including CMP , CBC with differential , albumin and prealbumin. Discussed nicotine/VAPE cessation. She will need to quit smoking and quit the vape pen before she would be a reconstructive candidate.
== END 2025-02-18 23:59 | disposition home or self-care (01) ==
LOC: WC 15:03
PROVIDERS: PCP Family Medicine; Referring Provider Surgery Plastic and Reconstructive Surgery; Visit Provider Surgery Plastic and Reconstructive Surgery
DX: L89.153 Pressure ulcer of sacral region, stage 3 (principal); G82.20 Paraplegia, unspecified; F17.200 Nicotine dependence, unspecified, uncomplicated; F41.9 Anxiety disorder, unspecified; I95.89 Other hypotension; N31.9 Neuromuscular dysfunction of bladder, unspecified; Z79.02 Long term (current) use of antithrombotics/antiplatelets; Z79.899 Other long term (current) drug therapy; Z86.19 Personal history of other infectious and parasitic diseases; Z87.39 Personal history of other diseases of the musculoskeletal system and connective tissue
CPT/HCPCS: 11043; 11046

== ENCOUNTER 2025-03-02 13:06 | Outpatient (RCR) | payer MEDICAID, SELFPAY ==
[2025-02-19 00:39] VITALS: BP 123/71; PULSE 98; RESP 16; TEMP 36.9; BMI 19.5
== END 2025-03-21 23:59 | disposition home or self-care (01) ==
LOC: WC 13:06
PROVIDERS: PCP Family Medicine; Referring Provider Surgery Plastic and Reconstructive Surgery; Visit Provider Surgery Plastic and Reconstructive Surgery
DX: Z09 Encounter for follow-up examination after completed treatment for conditions other than malignant neoplasm (principal); Z79.899 Other long term (current) drug therapy

== ENCOUNTER 2025-04-20 10:34 | Outpatient (RCR) | payer MEDICAID, SELFPAY ==
[2025-03-22 00:39] VITALS: BP 123/71; PULSE 98; RESP 16; TEMP 36.9; BMI 19.5
[2025-03-30 15:12] VITALS: BMI 19.5
--- NOTE | 2025-03-30 15:18 | PCM.WC.PN ---
History of Present Illness Date of Service: 03/30/25 Chief Complaint: Sacral ulcer History of Wound: ROGELIO MARRERO is a delightful 44-year-old female with past medical history of depression, anxiety, intravenous drug use and polysubstance abuse resulting in hepatitis C, history of VTE, chronic paraplegia secondary to a spinal abscess at the level of C4-C5 (some ability to move extremities/lift her hips, but limited otherwise), neurogenic bladder with suprapubic catheters, chronic hypotension, tobacco use (continues to smoke), and a stage IV sacral decubitus ulcer. Patient reports that in the 5 years of her paraplegia, she has never had a sacral ulcer but developed 1 this summer when she was using a roller on her lower back for massage. She does not have a pressure offloading bed at home and lives with a roommate. Surgery by Dr. Barton on 08/14/24 - Excision of necrotic sacral ulcer down to bone, 9 x7 cm and Biopsy of the sacral bone and Placement of non-disposable irrigating wound VAC. Pathology of the bone showed acute and chronic osteomyelitis. Operative cultures negative. Acid Fast Bacilli cx and fungal cx still pending. Wound culture from 08/09/24 positive for MRSA and Enterococcus faecalis. Dr. Ferrell, ID, managing antibiotics. She is on home IV Vancomycin and Ertapenem for 6 weeks. Stop date 09/25/24. Wound care is the wound VAC. Subjective Subjective 29 Sep 2024: Here for follow-up 6 week postop. Doing well overall. Reports excellent dressing changes at home with the wound VAC. She has been getting excellent home health team care. Reports that she has been pressure offloading on a pressure offloading bed and has been improving her diet. Patient met with clinical nutritionist today upon my request. Reports that this helped. She is still smoking. Has Rx for Chantix but hasn't started. She's also vaping 13 Oct 2024: Still smoking. Reports excellent VAC changes. 04 Nov 2024: Still smoking. Reports excellent VAC changes. 25 Nov 2024: Reports good VAC changes. Has not yet started the Chantix. 15 Dec 2024: Doing well overall but still using tobacco products. Reports good VAC changes but that there has been issue with the seal from time to time and would like to switch dressings. 12 January 2025: Patient reports good dressing changes. No issues. Periwound has become bobbin cleaner hand since discontinuing the tape from the VAC. She has been attempting to pressure offload. She has Chantix at home but has not started it and continues to smoke. 09 February 2025: Doing well overall with dressing changes. She is still smoking, however, does not want to use Chantix. No fevers or chills. Has been eating a high-protein diet as instructed Current Encounter, 30 March 2025: Still smoking cigarettes. Has not obtained the labs. Reports that she is trying to eat as much protein as she can, however. She endorses good dressing changes Objective Data Objective Data Vital Signs: Vital Signs Temp Pulse Resp BP 98.5 F 98 16 123/71 H 03/22/25 00:39 03/22/25 00:39 03/22/25 00:39 03/22/25 00:39 Weight: 147 lb 11.355 oz Body Mass Index (BMI) 19.5 Charges/Coding Visit Charges Office Visits / Consults: 22876 OV L3 Est 20min Procedures Integumentary 111xxx-113xx: 92884 Zakia musc/fascia 20 sq cm/< Add On Codes: 31892 Zakia musc/fascia add-on (x 2 units ) Physical Exam Narrative No fluid collections. Wound measures 6.3 x 6.8 cm today. No exposed bone (0.9 cm deep), just fascia. Improved skin quality surrounding the wound. Const alert and oriented x3 General Appearance: cooperative HEENT normocephalic Head and Scalp: atraumatic Eyes General Eye: normal appearance of both eyes Neck full ROM Lymph Lymphatic: Negative for no lymphedema noted Resp normal respiratory effort, normal air movement and clear to auscultation bilaterally Effort and Inspection: able to speak in complete sentences Cardio regular rate and regular rhythm Extremity normal to inspection and normal capillary refill Skin Wound Narrative: see above Neuro oriented x3 and CN's II-XII intact bilaterally Psych mental status grossly normal and cooperative Debridement Note Debridement Note Wound debrided: Sacral wound Laterality: Not Applicable Wound Grade/Stage: Stage III Type of Debridement: Excisional debridement Anesthesia Used: 4% Lidocaine Solution and - (5 cc of 1% lidocaine with 1-200,000 epinephrine) Depth: - (To the fascial layer overlying the bone) Percentage of wound debrided: 100 Instrument Used: 7mm curette Tissue Removed: Necrotic fibrinous exudate, biofilm, and hypertrophic granulation tissue Severity: Necrosis of Muscle (Necrosis to the fascial layer) Amount of bleeding with debridement: Moderate Bleeding Controlled with: Compression and gauze and - (Epinephrine from the above-noted local solution) Patient tolerated procedure: Patient tolerated procedure well Debridement Free Text: Once appropriate level of anesthesia was obtained through the injection and the topical anesthesia, a 7 mm curette was used to excise sharply the fibrinous exudate at the base of the wound at the level of the fascia. Patient tolerated the procedure well Post-Debridement Measurements and Additional Note: Post-Debridement Measurements/Treatment - Nurse 1 - General Ulcer Assessment Start: 03/30/25 15:11 Freq: Status: Active Protocol: NICOLAS Activity Type Activity Date Activity User E-sign Co-sign Detail Recorded Client Recorded Date Recorded By Document 03/30/25 15:12 [email or web address] [id number] 03/30/25 15:13 03/30/25 15:12 - Today's Visit Information Type of service Follow-up Visit (Physician/INSPECTOR DIALS ) Arrival Mode Wheelchair Accompanied by CAREGIVER Patient Identification Verified (Name & Yes ) Height and Weight Body Mass Index (BMI) 19.5 BMI Classification Normal History Since Last Visit- (Skip if this is Patient's initial visit) Have you changed medications since your No last visit? Any new allergies or adverse reactions No Had a fall/change in ADL's that may No increase risk of falls Signs or symptoms of abuse and/or No neglect since last visit Have you been in the hospital since your No last visit? Has dressing in place as prescribed Yes Has compression in place as prescribed N/A Has offloadiing in place as prescribed N/A Experienced any changes in pain level or No management Left Footwear Regular Shoe Right Footwear Regular Shoe Pain Scale: 0-10 Numeric Is Patient Pain Free? Yes - Nurse 1 - General Ulcer Measurement Start: 03/30/25 15:11 Freq: Status: Active Protocol: Activity Type Activity Date Activity User E-sign Co-sign Detail Recorded Client Recorded Date Recorded By Document 03/30/25 15:12 [email or web address] [id number] 03/30/25 15:13 03/30/25 15:12 Wound Center Nurse 1 #1 Sacral -Current Size (cm) - Length 6.3 -Current Size (cm) - Width 6.8 -Current Size (cm) - Depth 0.9 -Total Square Cm 42.84 -Date of Last Picture (Recall this 03/30/25 field) -Exudate Amt Medium -Exudate Type Serosanguineous -Wound Margin Thickened & Rolled Under -Granulation Amt Large (67-100%) -Granulation Quality [place] -Necrosis Amt Small (1-33%) -Necrotic Tissue Type Adherent Slough -Texture (Prisca-wound Skin Appearance) Assessed -Moisture (Prisca-wound Skin Appearance) Assessed -Color (Prisca-wound Skin Appearance) Assessed -Temperature (Prisca-wound Skin No Abnormality Appearance) (Pt Warm) -Tenderness on Palpation (Prisca-wound No Skin Appearance) -Ulcer Cleansing Soap and Water -Foul Odor after Cleansing No -Anesthetic Used 5% Lidocaine Gel Assessment/Plan Assessment/Plan (1) Decubitus ulcer of sacral region, stage 4: CODE(S): L89.154 - Pressure ulcer of sacral region, stage 4 PLAN: Continue Dakin's wet-to-dry twice daily Continue pressure offloading. F/u in 3 weeks. Today we ordered labs including CMP , CBC with differential , albumin and prealbumin. Discussed nicotine/VAPE cessation. She will need to quit smoking and quit the vape pen before she would be a reconstructive candidate. I offered referral to another physician to see if they would perform a reconstruction with her using nicotine products/smoking. She is not interested in seeing them at this time and would like to continue to follow with us. Continue Aquacel Ag dressings daily. Continue pressure offloading on air mattress Continue high-protein diet and obtain new nutrition labs.
--- NOTE | 2025-03-31 09:52 | WC ---
PHOTO 03/30/25 [facility]
== END 2025-04-20 23:59 | disposition home or self-care (01) ==
LOC: WC 10:34
PROVIDERS: PCP Family Medicine; Referring Provider Surgery Plastic and Reconstructive Surgery; Visit Provider Surgery Plastic and Reconstructive Surgery
DX: L89.153 Pressure ulcer of sacral region, stage 3 (principal); G82.20 Paraplegia, unspecified; F19.11 Other psychoactive substance abuse, in remission; N31.9 Neuromuscular dysfunction of bladder, unspecified; I95.89 Other hypotension; F41.9 Anxiety disorder, unspecified; F17.210 Nicotine dependence, cigarettes, uncomplicated; Z79.899 Other long term (current) drug therapy; Z86.19 Personal history of other infectious and parasitic diseases; Z86.14 Personal history of Methicillin resistant Staphylococcus aureus infection
CPT/HCPCS: 11043; 11046

== ENCOUNTER 2025-05-04 14:58 | Outpatient (RCR) | payer MEDICAID, SELFPAY ==
[2025-05-04 15:03] VITALS: BP 97/75; PULSE 92; RESP 16; TEMP 36.6
--- NOTE | 2025-05-04 16:08 | WC ---
PHOTO 05/04/25 [facility]
--- NOTE | 2025-05-05 16:59 | PCM.WC.PN ---
History of Present Illness Date of Service: 05/04/25 Chief Complaint: Sacral ulcer History of Wound: ROGELIO MARRERO is a delightful 44-year-old female with past medical history of depression, anxiety, intravenous drug use and polysubstance abuse resulting in hepatitis C, history of VTE, chronic paraplegia secondary to a spinal abscess at the level of C4-C5 (some ability to move extremities/lift her hips, but limited otherwise), neurogenic bladder with suprapubic catheters, chronic hypotension, tobacco use (continues to smoke), and a stage IV sacral decubitus ulcer. Patient reports that in the 5 years of her paraplegia, she has never had a sacral ulcer but developed 1 this summer when she was using a roller on her lower back for massage. She does not have a pressure offloading bed at home and lives with a roommate. Surgery by Dr. Barton on 08/14/24 - Excision of necrotic sacral ulcer down to bone, 9 x7 cm and Biopsy of the sacral bone and Placement of non-disposable irrigating wound VAC. Pathology of the bone showed acute and chronic osteomyelitis. Operative cultures negative. Acid Fast Bacilli cx and fungal cx still pending. Wound culture from 08/09/24 positive for MRSA and Enterococcus faecalis. Dr. Ferrell, ID, managing antibiotics. She is on home IV Vancomycin and Ertapenem for 6 weeks. Stop date 09/25/24. Wound care is the wound VAC. Subjective Subjective 29 Sep 2024: Here for follow-up 6 week postop. Doing well overall. Reports excellent dressing changes at home with the wound VAC. She has been getting excellent home health team care. Reports that she has been pressure offloading on a pressure offloading bed and has been improving her diet. Patient met with business operations consultant today upon my request. Reports that this helped. She is still smoking. Has Rx for Chantix but hasn't started. She's also vaping 13 Oct 2024: Still smoking. Reports excellent VAC changes. 04 Nov 2024: Still smoking. Reports excellent VAC changes. 25 Nov 2024: Reports good VAC changes. Has not yet started the Chantix. 15 Dec 2024: Doing well overall but still using tobacco products. Reports good VAC changes but that there has been issue with the seal from time to time and would like to switch dressings. 12 January 2025: Patient reports good dressing changes. No issues. Periwound has become house cleaner since discontinuing the tape from the VAC. She has been attempting to pressure offload. She has Chantix at home but has not started it and continues to smoke. 09 February 2025: Doing well overall with dressing changes. She is still smoking, however, does not want to use Chantix. No fevers or chills. Has been eating a high-protein diet as instructed 30 March 2025: Still smoking cigarettes. Has not obtained the labs. Reports that she is trying to eat as much protein as she can, however. She endorses good dressing changes Current Encounter, 04 May 2025: The patient is a 44-year-old female presenting with a sacral wound. The wound has been present for an unspecified duration and has shown signs of healing, with a current size of 5 cm x 4 cm and a depth of 0.9 cm. The patient has been using a wound vacuum-assisted closure (VAC) device, although there is some reluctance to continue its use due to discomfort and previous issues with adherence. Smoking has been identified as a complicating factor in the healing process, and cessation is recommended to improve wound healing outcomes. The patient has not undergone recent nutritional lab work, which could be relevant to the healing process. ROS: - Integumentary: Reports sacral wound with healing progress - General: Denies recent nutritional lab work Attestation: Documentation on this patient encounter was supported using ambient scribe technology/ voice AI technology. The patient consented to recording for the purpose of documenting the encounter. Provider reviewed content of the generated note prior to signature. Objective Data Objective Data Vital Signs: Vital Signs Temp Pulse Resp BP O2 Del Method 97.9 F 92 16 97/75 Room Air 05/04/25 15:03 05/04/25 15:03 05/04/25 15:03 05/04/25 15:03 05/04/25 15:03 Oxygen Delivery Method Room Air Charges/Coding Procedures Integumentary 111xxx-113xx: 40618 Zakia musc/fascia 20 sq cm/< Physical Exam Narrative - Integumentary: Sacral wound measuring 5 cm x 4 cm with a depth of 0.9 cm, showing signs of healing No exposed bone, just fascia. Improved skin quality surrounding the wound. Const alert and oriented x3 General Appearance: cooperative HEENT normocephalic Head and Scalp: atraumatic Eyes General Eye: normal appearance of both eyes Neck full ROM Lymph Lymphatic: Negative for no lymphedema noted Resp normal respiratory effort, normal air movement and clear to auscultation bilaterally Effort and Inspection: able to speak in complete sentences Cardio regular rate and regular rhythm Extremity normal to inspection and normal capillary refill Skin Wound Narrative: see above Neuro oriented x3 and CN's II-XII intact bilaterally Psych mental status grossly normal and cooperative Debridement Note Debridement Note Wound debrided: Sacral wound Laterality: Not Applicable Wound Grade/Stage: stage 3 Type of Debridement: Excisional debridement Anesthesia Used: 4% Lidocaine Solution Depth: to muscle Percentage of wound debrided: 100 Instrument Used: 7mm curette Tissue Removed: Necrotic presacral fascia and fibrinous exudate Severity: Necrosis of Muscle (Necrosis to the level of the underlying fascia ) Amount of bleeding with debridement: Moderate Bleeding Controlled with: Compression and gauze Patient tolerated procedure: Patient tolerated procedure well Post-Debridement Measurements and Additional Note: Post-Debridement Measurements/Treatment - Nurse 1 - General Ulcer Assessment Start: 05/04/25 15:03 Freq: Status: Active Protocol: NICOLAS Activity Type Activity Date Activity User E-sign Co-sign Detail Recorded Client Recorded Date Recorded By Document 05/04/25 15:03 [id number] 05/04/25 15:15 05/04/25 15:03 - Today's Visit Information Type of service Follow-up Visit (Physician/HEAD FIELD HOCKEY COACH ) Arrival Mode Wheelchair Accompanied by access service representative Patient Identification Verified (Name & Yes ) Vital Signs Temperature (97.8 F-99.1 F) 97.9 F Temperature Source Temporal Pulse Rate (60-100) 92 Pulse Location Monitor Respiratory Rate (12-18) 16 Respiratory rate source Observation Oxygen Delivery Method Room Air Blood Pressure (90/60-120/80) 97/75 Blood Pressure Mean (mm Hg) 82 Source Monitor Position Sitting Blood Pressure Location Left Arm History Since Last Visit- (Skip if this is Patient's initial visit) Have you changed medications since your No last visit? Any new allergies or adverse reactions No Had a fall/change in ADL's that may No increase risk of falls Signs or symptoms of abuse and/or No neglect since last visit Have you been in the hospital since your No last visit? Has dressing in place as prescribed Yes Has compression in place as prescribed N/A Has offloadiing in place as prescribed N/A Experienced any changes in pain level or No management Left Footwear No Footwear Right Footwear No Footwear Pain Scale: 0-10 Numeric Is Patient Pain Free? Yes - Nurse 1 - General Ulcer Measurement Start: 05/04/25 15:03 Freq: Status: Active Protocol: Activity Type Activity Date Activity User E-sign Co-sign Detail Recorded Client Recorded Date Recorded By Document 05/04/25 15:03 [id number] 05/04/25 15:15 05/04/25 15:03 Wound Center Nurse 1 #1 Sacral -Current Size (cm) - Length 6 -Current Size (cm) - Width 6 -Current Size (cm) - Depth 0.8 -Total Square Cm 36 -Date of Last Picture (Recall this 05/04/25 field) -Undermining/Tunneling Yes -Undermining/Tunneling Starts (O'clock 12 ) -Undermining/Tunneling Ends (O'clock) 4 -Maximum Distance (cm) 0.9 -Exudate Amt Medium -Exudate Type Serosanguineous -Wound Margin Thickened -Granulation Amt Large (67-100%) -Granulation Quality [place] -Necrosis Amt Small (1-33%) -Necrotic Tissue Type Adherent Slough -Texture (Prisca-wound Skin Appearance) Assessed -Moisture (Prisca-wound Skin Appearance) Assessed -Color (Prisca-wound Skin Appearance) Assessed -Temperature (Prisca-wound Skin No Abnormality Appearance) (Pt Warm) -Tenderness on Palpation (Prisca-wound No Skin Appearance) -Ulcer Cleansing Soap and Water -Foul Odor after Cleansing No -Anesthetic Used 5% Lidocaine Gel - Nurse 2 - General Ulcer CM Notes Start: 05/04/25 15:03 Freq: Status: Active Protocol: Activity Type Activity Date Activity User E-sign Co-sign Detail Recorded Client Recorded Date Recorded By Document 05/04/25 15:26 [id number] 05/04/25 15:27 05/04/25 15:26 Wound Center Nurse 2 -Time 15:26 -Correct Patient Yes -Correct Side, Site, Position Yes -Correct Procedure Yes -Procedure Performed Yes -Type of Procedure Debridement -Clinical Debridement Muscle / Fascia -Tissue Removed Muscle -Post Debridement (cm) - Length 5 -Post Debridement (cm) - Width 4 -Post Debridement (cm) - Depth 0.8 -Total Square (Post) (cm) 20 -Area of Debridement (cm) - Length 5 -Area of Debridement (cm) - Width 4 -Total Square (Area) (cm) 20 -Tunneling No -Undermining/Tunneling No -Circular Undermining No -Wound/Ulcer Outcome Not Healed -Ulcer Cleansing Rinsed/ Irrigated with Saline -Foul Odor after Cleansing No -Bioengineered Tissue No -Bleeding Controlled with Pressure -Treatment Response Procedure Tolerated Well -Offloading No -Pressure Reduction Wheelchair cushion -Debridement - Muscle / Fascia, 1st Yes 20sq cm Pain Scale: 0-10 Numeric Is Patient Pain Free? Yes - Nurse 3 - General Ulcer D/C NN Start: 05/04/25 15:03 Freq: Status: Active Protocol: Activity Type Activity Date Activity User E-sign Co-sign Detail Recorded Client Recorded Date Recorded By Document 05/04/25 15:44 [id number] 05/04/25 15:44 05/04/25 15:44 Wound Care Center Nurse 3 #1 Sacral -Ulcer Cleansing Rinsed/ Irrigated with Saline -Primary Dressing Applied [place] -Primary Dressing Covered/Secured with Dry Gauze, Secured with Tape -[place] 1 Pain Scale: 0-10 Numeric Is Patient Pain Free? Yes WC - Visit Discharge Discharge Condition Stable Ambulatory Status Wheelchair Transportation Private Auto Medication Reconcilliation completed & No provided to patient/care provider Clinical Summary of Care Provided Yes Assessment/Plan Assessment/Plan (1) Sacral decubitus ulcer, stage III: CODE(S): L89.153 - Pressure ulcer of sacral region, stage 3 PLAN: Assessment and Plan The patient is a 44-year-old female with a history of smoking, presenting with a sacral wound. The wound has shown improvement in size, currently measuring 5 cm x 4 cm with a depth of 0.9 cm, and the use of a wound VAC has been considered, although the patient expresses discomfort with its use. Smoking cessation is strongly advised to enhance healing, and nutritional status should be assessed to support recovery. 1. Sacral Wound The plan for the sacral wound includes continued monitoring of the wound size and healing progress. The use of a wound vacuum-assisted closure (VAC) device will be attempted for three weeks, with the option to discontinue if discomfort persists or if the device does not adhere properly. Nutritional labs should be obtained to assess any deficiencies that may impact healing. 2. Smoking-Related Complications Smoking cessation is strongly recommended to improve wound healing outcomes. The patient should be advised on strategies to quit smoking, as continued smoking may hinder the healing process. PLAN: Plan - Continue monitoring the sacral wound for changes in size and healing. - Use the wound VAC device for three weeks, and report any issues with discomfort or adherence. - Obtain nutritional labs to check for deficiencies that may affect healing. - Quit smoking to aid in the healing process and discuss cessation strategies with your healthcare provider.
--- NOTE | 2025-06-01 16:53 | PCM.WC.HP ---
History of Present Illness Date of Service: 06/01/25 Chief Complaint: Sacral pressure ulceration History of Wound: The patient is seen today on behalf of the patient's regular Wound Center provider, Dr. Pradeep Barton, and whose medical history has been reviewed, as documented below: ROGELIO MARRERO is a delightful 44-year-old female with past medical history of depression, anxiety, intravenous drug use and polysubstance abuse resulting in hepatitis C, history of VTE, chronic paraplegia secondary to a spinal abscess at the level of C4-C5 (some ability to move extremities/lift her hips, but limited otherwise), neurogenic bladder with suprapubic catheters, chronic hypotension, tobacco use (continues to smoke), and a stage IV sacral decubitus ulcer. The patient reported that in the 5 years of her paraplegia, she has never had a sacral ulcer but developed one when she was using a roller on her lower back for massage. She does not have a pressure offloading bed at home and lives with a roommate. Surgery was performed by Dr. Barton on August 14, 2024, which entailed excision of necrotic a sacral ulcer down to bone and placement of non-disposable irrigating wound VAC. Pathology of the bone showed acute and chronic osteomyelitis. Operative cultures negative. A wound culture from 08/09/24 was positive for MRSA and Enterococcus faecalis. Dr. Ferrell, ID, helped to manage antibiotic treatment. Current wound care is by means of negative pressure wound therapy using the wound VAC. [facility] Medical History Neurogenic bladder Tobacco use Smoker Tobacco abuse counseling MRSA (methicillin resistant staph aureus) culture positive Decubitus ulcer of sacral region, stage 2 Sacral wound Ovarian cyst Hepatitis C Kidney stones Chronic indwelling Charles catheter DVT (deep venous thrombosis) Paraplegia Spinal abscess Anxiety and depression Chronic hypotension History of intravenous drug abuse Esophageal reflux Home Medications Medication Instructions Recorded Last Taken Type baclofen 20 mg tablet 20 mg PO 4X/DAY muscle spasm 10/19/19 03/31/24 History duloxetine 60 mg capsule,delayed 120 mg PO DAILY depression 10/19/19 03/31/24 History release oxybutynin chloride 10 mg 10 mg PO DAILY bladder 12/24/19 03/31/24 History tablet,extended release 24 hr clonazepam 0.5 mg tablet 0.5 mg PO TID PRN Anxiety #9 tabs 07/05/20 05/20/23 Rx cilostazol 50 mg tablet 50 mg PO BID antiplatelet 08/15/22 03/31/24 History meloxicam 15 mg tablet 15 mg PO DAILY spasms 08/15/22 05/20/23 History Held on 08/25/24. Instructions: Resume on 09/08/24. Do not take at the same time as taking ibuprofen ferrous sulfate 325 mg (65 mg 325 mg PO QODAY 03/27/24 03/30/24 History iron) tablet (FeroSul) gabapentin 800 mg tablet 800 mg PO 4X/DAY 03/31/24 03/31/24 History nystatin 100,000 unit/gram topical 1 applic topical PRN PRN skin 03/31/24 Unknown History cream irritation sodium chloride 0.9 % irrigation 1 irrig irrigation UD 03/31/24 03/31/24 History solution ascorbate calcium (vitamin C) 500 500 mg PO QODAY 08/08/24 Unknown History mg tablet ertapenem 1 gram solution for 1 g IV Q24 38 days #38 ea 08/18/24 Unknown Rx injection vancomycin 1.25 gram intravenous 1.25 g IV Q12H 38 days 08/18/24 Unknown Rx solution L.acidophil,salivari-Bifido 1 cap PO TID 30 days #90 caps 08/19/24 Unknown Rx bifidum-Strep thermoph 175 mg capsule bisacodyl 10 mg rectal suppository 10 mg UT DAILY PRN constipation 08/19/24 Unknown Rx (Gentle Laxative (bisacodyl)) #30 ea fludrocortisone 0.1 mg tablet 0.05 mg (1/2 x 0.1 mg) PO 08/19/24 Unknown Rx BREAKFAST #30 tabs midodrine 5 mg tablet 10 mg (2 x 5 mg) PO TIDCM #90 tabs 08/19/24 Unknown Rx ondansetron 4 mg disintegrating 4 mg PO Q6H PRN nausea and 08/19/24 Unknown Rx tablet vomiting #30 tabs ibuprofen 600 mg tablet 600 mg PO Q6H PRN pain 14 days #52 08/25/24 Unknown Rx tabs oxycodone 5 mg tablet 5 mg PO BID PRN pain (scale score 09/03/24 Unknown Rx 7-10) 5 days #6 tabs Allergy/AdvReac Type Severity Reaction Status Date / Time Penicillins AdvReac PT UNSURE Verified 08/25/24 09:36 OF REACTION Family History Mother Multiple sclerosis Surgical History History of surgery on lower extremity S/P debridement History of suprapubic catheter Hx of spinal surgery Social History household members: none housing: house Smoking Status: Current every day smoker tobacco type: cigarettes alcohol intake: current Alcohol type: other substance use type: former substance user Date of last use: Prior history of IV drug abuse with heroin and methamphetamine. Physical Exam Const alert, oriented x3, no apparent distress and average body habitus Constitutional Narrative: The patient is paraplegic. She appears chronically ill. General Appearance: cooperative, disheveled, ill appearing and frail Orientation / Consciousness: awake, oriented to person, oriented to place and oriented to time HEENT normocephalic and head/scalp atraumatic Head and Scalp: normal to inspection, normocephalic and atraumatic Face and Sinus: normal facial exam Nose: external nose normal External Ear: external ears normal Eyes General Eye: normal appearance of both eyes Neck full ROM Resp normal respiratory effort, normal air movement, no retractions and no use of accessory muscles Effort and Inspection: able to speak in complete sentences Skin Wound Narrative: A large sacral pressure ulceration is noted. It is full-thickness, and appears to extend through all layers of the dermis, through subcutaneous layers, with extension to the muscle and fascia. Ulcer margins are not well beveled. There is a moderate amount of slough and devitalized tissue at the ulcer base. Dimensions are documented elsewhere. There is no obvious sign of infection or cellulitis. There is slight maceration at the ulcer margins. Neuro oriented x3 and CN's II-XII intact bilaterally Neuro Narrative: The patient is paraplegic. Sensorium / Orientation: awake, alert, oriented to person, oriented to place and oriented to time Speech: speech normal Psych mental status grossly normal and cooperative Debridement Note Debridement Note Wound debrided: Sacral pressure ulceration Laterality: Not Applicable (Midline) Wound Grade/Stage: Stage IV Type of Debridement: Excisional debridement Anesthesia Used: 5% Lidocaine Gel and Cetacaine Depth: Down to and including healthy tissue, in the subcutaneous layer and to muscle Percentage of wound debrided: 100 Instrument Used: 5mm curette Tissue Removed: Slough and devitalized tissue Severity: Necrosis of Muscle Amount of bleeding with debridement: Mild Bleeding Controlled with: Compression and gauze Patient tolerated procedure: Patient tolerated procedure well Charges/Coding Multi Select Codes Visit Charges Office Visit/Consults: 00767 OV L4 New 45 min Integumentary Integumentary CPT Codes: 19850 Zakia musc/fascia 20 sq cm/< Assessment/Plan Assessment/Plan (1) Decubitus ulcer of sacral region, stage 4: CODE(S): L89.154 - Pressure ulcer of sacral region, stage 4 (2) Infected decubitus ulcer: CODE(S): L89.90 - Pressure ulcer of unspecified site, unspecified stage; L08.9 - Local infection of the skin and subcutaneous tissue, unspecified (3) Chronic paraplegia: CODE(S): G82.20 - Paraplegia, unspecified (4) Tobacco use: CODE(S): Z72.0 - Tobacco use (5) Tobacco abuse counseling: CODE(S): Z71.6 - Tobacco abuse counseling (6) History of suprapubic catheter: CODE(S): Z98.890 - Other specified postprocedural states (7) Hx of spinal surgery: CODE(S): Z98.890 - Other specified postprocedural states (8) History of surgery on lower extremity: CODE(S): Z98.890 - Other specified postprocedural states (9) History of intravenous drug abuse: CODE(S): F19.11 - Other psychoactive substance abuse, in remission (10) Chronic indwelling Charles catheter: CODE(S): Z97.8 - Presence of other specified devices (11) Neurogenic bladder: CODE(S): N31.9 - Neuromuscular dysfunction of bladder, unspecified (12) Hepatitis C: CODE(S): B19.20 - Unspecified viral hepatitis C without hepatic coma PLAN: Plan This is a 44-year-old paraplegic female with multiple pre-existing medical problems. She is under treatment for a stage IV pressure ulceration of the sacrum. It appears as though the patient consumes a rather poor diet. A discussion has been undertaken to encourage the patient to optimize her nutritional intake, to consume a well-balanced and nutritious diet. She is known to be a smoker. She has been encouraged to discontinue her smoking habit. She is a patient of Dr. Pradeep Barton, Plastic Surgeon. The patient may likely benefit from a flap reconstruction procedure for closure of her sacral pressure ulceration. However, until which time the patient has discontinued her smoking habit surgical intervention is not felt to be optimal. Offloading measures have been discussed in detail. She has recently received a gel mattress to assist with offloading measures. Frequent repositioning has been encouraged. We are to continue the use of negative pressure wound therapy using the wound VAC, which is to be changed 3 times weekly. Home health nursing assistance has been recruited for this purpose. Patient is to return in 1 week for reevaluation by Dr. Barton. Total time: 48 minutes
== END 2025-05-21 23:59 | disposition home or self-care (01) ==
LOC: WC 14:58
PROVIDERS: PCP Family Medicine; Referring Provider Surgery Plastic and Reconstructive Surgery; Visit Provider Surgery Plastic and Reconstructive Surgery
DX: L89.153 Pressure ulcer of sacral region, stage 3 (principal); G82.20 Paraplegia, unspecified; F19.11 Other psychoactive substance abuse, in remission; L08.9 Local infection of the skin and subcutaneous tissue, unspecified; I95.89 Other hypotension; N31.9 Neuromuscular dysfunction of bladder, unspecified; F41.9 Anxiety disorder, unspecified; F17.210 Nicotine dependence, cigarettes, uncomplicated; Z71.6 Tobacco abuse counseling; Z79.899 Other long term (current) drug therapy; Z86.718 Personal history of other venous thrombosis and embolism; Z86.19 Personal history of other infectious and parasitic diseases; Z87.39 Personal history of other diseases of the musculoskeletal system and connective tissue
CPT/HCPCS: 11043

== ENCOUNTER 2025-06-01 13:51 | Outpatient (RCR) | payer MEDICAID, SELFPAY ==
[2025-06-01 14:40] VITALS: BP 84/62; PULSE 116; RESP 16; TEMP 37.6
== END 2025-06-21 23:59 | disposition home or self-care (01) ==
LOC: WC 13:51
PROVIDERS: PCP Family Medicine; Referring Provider Surgery Plastic and Reconstructive Surgery; Visit Provider Surgery Plastic and Reconstructive Surgery
DX: L89.154 Pressure ulcer of sacral region, stage 4 (principal); G82.20 Paraplegia, unspecified; F19.11 Other psychoactive substance abuse, in remission; L08.9 Local infection of the skin and subcutaneous tissue, unspecified; Z79.899 Other long term (current) drug therapy; N31.9 Neuromuscular dysfunction of bladder, unspecified; Z71.6 Tobacco abuse counseling; F17.210 Nicotine dependence, cigarettes, uncomplicated; Z87.39 Personal history of other diseases of the musculoskeletal system and connective tissue; Z86.19 Personal history of other infectious and parasitic diseases
CPT/HCPCS: 11043

== ENCOUNTER 2025-07-27 15:06 | Outpatient (RCR) | payer MEDICAID, SELFPAY ==
[2025-07-27 15:20] VITALS: BP 123/69; PULSE 121; RESP 10; TEMP 36.8
--- NOTE | 2025-07-27 16:38 | PCM.WC.PN ---
History of Present Illness Date of Service: 07/27/25 Chief Complaint: Sacral ulcer History of Wound: ROGELIO MARRERO is a delightful 44-year-old female with past medical history of depression, anxiety, intravenous drug use and polysubstance abuse resulting in hepatitis C, history of VTE, chronic paraplegia secondary to a spinal abscess at the level of C4-C5 (some ability to move extremities/lift her hips, but limited otherwise), neurogenic bladder with suprapubic catheters, chronic hypotension, tobacco use (continues to smoke), and a stage IV sacral decubitus ulcer. Patient reports that in the 5 years of her paraplegia, she has never had a sacral ulcer but developed 1 this summer when she was using a roller on her lower back for massage. She does not have a pressure offloading bed at home and lives with a roommate. Surgery by Dr. Barton on 08/14/24 - Excision of necrotic sacral ulcer down to bone, 9 x7 cm and Biopsy of the sacral bone and Placement of non-disposable irrigating wound VAC. Pathology of the bone showed acute and chronic osteomyelitis. Operative cultures negative. Acid Fast Bacilli cx and fungal cx still pending. Wound culture from 08/09/24 positive for MRSA and Enterococcus faecalis. Dr. Ferrell, ID, managing antibiotics. She is on home IV Vancomycin and Ertapenem for 6 weeks. Stop date 09/25/24. Wound care is the wound VAC. Subjective Subjective 29 Sep 2024: Here for follow-up 6 week postop. Doing well overall. Reports excellent dressing changes at home with the wound VAC. She has been getting excellent home health team care. Reports that she has been pressure offloading on a pressure offloading bed and has been improving her diet. Patient met with medical device sales consultant today upon my request. Reports that this helped. She is still smoking. Has Rx for Chantix but hasn't started. She's also vaping 13 Oct 2024: Still smoking. Reports excellent VAC changes. 04 Nov 2024: Still smoking. Reports excellent VAC changes. 25 Nov 2024: Reports good VAC changes. Has not yet started the Chantix. 15 Dec 2024: Doing well overall but still using tobacco products. Reports good VAC changes but that there has been issue with the seal from time to time and would like to switch dressings. 12 January 2025: Patient reports good dressing changes. No issues. Periwound has become vacuum cleaner repairer since discontinuing the tape from the VAC. She has been attempting to pressure offload. She has Chantix at home but has not started it and continues to smoke. 09 February 2025: Doing well overall with dressing changes. She is still smoking, however, does not want to use Chantix. No fevers or chills. Has been eating a high-protein diet as instructed 30 March 2025: Still smoking cigarettes. Has not obtained the labs. Reports that she is trying to eat as much protein as she can, however. She endorses good dressing changes 04 May 2025: The patient is a 44-year-old female presenting with a sacral wound. The wound has been present for an unspecified duration and has shown signs of healing, with a current size of 5 cm x 4 cm and a depth of 0.9 cm. The patient has been using a wound vacuum-assisted closure (VAC) device, although there is some reluctance to continue its use due to discomfort and previous issues with adherence. Smoking has been identified as a complicating factor in the healing process, and cessation is recommended to improve wound healing outcomes. The patient has not undergone recent nutritional lab work, which could be relevant to the healing process. ROS: - Integumentary: Reports sacral wound with healing progress - General: Denies recent nutritional lab work Attestation: Documentation on this patient encounter was supported using ambient scribe technology/ voice AI technology. The patient consented to recording for the purpose of documenting the encounter. Provider reviewed content of the generated note prior to signature. Current Encounter, 27 Jul 2025: Doing well overall but still smoking. Reports that she needs a VAC holiday as she is sick with a wound VAC but will start it again next week. She finally has a gel pressure offloading bed and appears to be doing well with it. She reports increased protein intake Objective Data Objective Data Vital Signs: Vital Signs Temp Pulse Resp BP 98.2 F 121 H 10 L 123/69 H 07/27/25 15:20 07/27/25 15:20 07/27/25 15:20 07/27/25 15:20 Charges/Coding Procedures Integumentary [id number]: [id number] Zakia subq tissue 20 sq cm/< Physical Exam Narrative - Integumentary: Sacral wound measuring wound significantly smaller today at 3 x 3.5 cm with a depth of 0.5 cm, showing signs of healing No exposed bone, just fascia. Improved skin quality surrounding the wound. Const alert and oriented x3 General Appearance: cooperative HEENT normocephalic Head and Scalp: atraumatic Eyes General Eye: normal appearance of both eyes Neck full ROM Lymph Lymphatic: Negative for no lymphedema noted Resp normal respiratory effort, normal air movement and clear to auscultation bilaterally Effort and Inspection: able to speak in complete sentences Cardio regular rate and regular rhythm Extremity normal to inspection and normal capillary refill Skin Wound Narrative: see above Neuro oriented x3 and CN's II-XII intact bilaterally Psych mental status grossly normal and cooperative Debridement Note Debridement Note Wound debrided: Sacral wound Laterality: Not Applicable Wound Grade/Stage: Stage III Type of Debridement: Excisional debridement Anesthesia Used: 4% Lidocaine Solution Depth: in the subcutaneous layer Percentage of wound debrided: 100 Instrument Used: 7mm curette Tissue Removed: Fibrinous exudate and necrotic biofilm Severity: Fat Layer Exposed Amount of bleeding with debridement: Mild Bleeding Controlled with: Pressure Patient tolerated procedure: Patient tolerated procedure well Post-Debridement Measurements and Additional Note: Post-Debridement Measurements/Treatment - Nurse 1 - General Ulcer Assessment Start: 07/27/25 15:20 Freq: Status: Active Protocol: NICOLAS Activity Type Activity Date Activity User E-sign Co-sign Detail Recorded Client Recorded Date Recorded By Document 07/27/25 15:20 ML [id number] 07/27/25 15:23 ML 07/27/25 15:20 - Today's Visit Information Type of service Follow-up Visit (Physician/FACILITY DESIGNER ) Arrival Mode Wheelchair Transfer Assistance Manual Patient Identification Verified (Name & Yes ) Patient Requires Transmission-Based No Precautions Vital Signs Temperature (97.8 F-99.1 F) 98.2 F Temperature Source Temporal Pulse Rate (60-100) 121 H Pulse Location Monitor Respiratory Rate (12-18) 10 L Respiratory rate source Monitor Blood Pressure (90/60-120/80) 123/69 H Blood Pressure Mean (mm Hg) 87 Source Monitor Position Sitting Blood Pressure Location Right Forearm History Since Last Visit- (Skip if this is Patient's initial visit) Have you changed medications since your No last visit? Any new allergies or adverse reactions No Had a fall/change in ADL's that may No increase risk of falls Signs or symptoms of abuse and/or No neglect since last visit Have you been in the hospital since your No last visit? Has dressing in place as prescribed No Has compression in place as prescribed Yes Has offloadiing in place as prescribed No Experienced any changes in pain level or No management Pain Scale: 0-10 Numeric Is Patient Pain Free? Yes WC - Nurse 1 - General Ulcer Measurement Start: 07/27/25 15:20 Freq: Status: Active Protocol: Activity Type Activity Date Activity User E-sign Co-sign Detail Recorded Client Recorded Date Recorded By Document 07/27/25 15:20 ML [id number] 07/27/25 15:23 ML 07/27/25 15:20 Wound Center Nurse 1 #1 Sacral -Current Size (cm) - Length 3 -Current Size (cm) - Width 2.5 -Current Size (cm) - Depth 4 -Total Square Cm 7.5 -Exudate Type Serosanguineous -Granulation Amt Medium (34-66%) -Slough/Fibrin Yes -Necrosis Amt Medium (34-66%) -Necrotic Tissue Type Adherent Slough -Texture (Prisca-wound Skin Appearance) Assessed -Color (Prisca-wound Skin Appearance) Assessed -Temperature (Prisca-wound Skin No Abnormality Appearance) (Pt Warm) -Tenderness on Palpation (Prisca-wound No Skin Appearance) -Ulcer Cleansing Soap and Water -Foul Odor after Cleansing No -Anesthetic Used 5% Lidocaine Gel WC - Nurse 2 - General Ulcer CM Notes Start: 07/27/25 15:20 Freq: Status: Active Protocol: Activity Type Activity Date Activity User E-sign Co-sign Detail Recorded Client Recorded Date Recorded By Document 07/27/25 15:33 DS [id number] 07/27/25 15:37 DS 07/27/25 15:33 Wound Center Nurse 2 -Time 15:33 -Correct Patient Yes -Correct Side, Site, Position Yes -Correct Procedure Yes -Procedure Performed Yes -Type of Procedure Debridement -Clinical Debridement Muscle / Fascia -Tissue Removed Muscle -Post Debridement (cm) - Length 3.0 -Post Debridement (cm) - Width 3.5 -Post Debridement (cm) - Depth 0.5 -Total Square (Post) (cm) 10.50 -Area of Debridement (cm) - Length 3.0 -Area of Debridement (cm) - Width 3.5 -Total Square (Area) (cm) 10.50 -Wound/Ulcer Outcome Not Healed -Ulcer Cleansing gauze -Foul Odor after Cleansing No -Bioengineered Tissue No -Bleeding Controlled with Pressure -Treatment Response Procedure Tolerated Well -Debridement - Muscle / Fascia, 1st Yes 20sq cm Pain Scale: 0-10 Numeric Is Patient Pain Free? Yes WC - Nurse 3 - General Ulcer D/C NN Start: 07/27/25 15:20 Freq: Status: Active Protocol: Activity Type Activity Date Activity User E-sign Co-sign Detail Recorded Client Recorded Date Recorded By Document 07/27/25 15:54 ML [id number] 07/27/25 15:55 ML 07/27/25 15:54 Wound Care Center Nurse 3 #1 Sacral -Ulcer Cleansing Rinsed/ Irrigated with Saline -Primary Dressing Covered/Secured with Dry Gauze & Roll Gauze, Secured with Tape Pain Scale: 0-10 Numeric Is Patient Pain Free? Yes Assessment/Plan Assessment/Plan (1) Tobacco abuse counseling: CODE(S): Z71.6 - Tobacco abuse counseling (2) Hx of spinal surgery: CODE(S): Z98.890 - Other specified postprocedural states (3) Sacral wound: CODE(S): S31.000A - Unspecified open wound of lower back and pelvis without penetration into retroperitoneum, initial encounter PLAN: Twice daily wet-to-dry dressings to the sacral wound Continue wound VAC next week Patient will have VAC changed 3 times per week Continue pressure offloading Discussed with her smoking cessation and she is going to try to cut down Follow-up in 4 weeks
== END 2025-08-21 23:59 | disposition home or self-care (01) ==
LOC: WC 15:06
PROVIDERS: PCP Family Medicine; Referring Provider Surgery Plastic and Reconstructive Surgery; Visit Provider Surgery Plastic and Reconstructive Surgery
DX: L89.154 Pressure ulcer of sacral region, stage 4 (principal); G82.20 Paraplegia, unspecified; I95.89 Other hypotension; F17.210 Nicotine dependence, cigarettes, uncomplicated; F41.9 Anxiety disorder, unspecified; N31.9 Neuromuscular dysfunction of bladder, unspecified; Z86.14 Personal history of Methicillin resistant Staphylococcus aureus infection; Z71.6 Tobacco abuse counseling; Z98.890 Other specified postprocedural states
CPT/HCPCS: 11043